=== PATIENT | male | born 1960 | race Caucasian/White ===

== ENCOUNTER → 2016-05-27 | Day surgery (SDC) | payer OTHER, BC ==
[2016-05-20 10:07] VITALS: Ht 170.2 cm; Wt 81.8 kg
[~2016-05-27] VITALS: Ht 170.2 cm; Wt 81.8 kg
[~2016-05-27] MED LIST: ACETAMINOPHEN 325 MG TAB PO PRN; ATROPINE SULFATE 0.1 MG/ML 5ML SYR IV PRN; CEFAZOLIN 2000 MG/60 ML D5W IV SCH; CEPH-571 PO; DOXA1TAB86 PO; EpHEDrine SULFATE INJ 50 MG/ML AMP IV PRN; FENTANYL CITRATE INJ 50 MCG/1 ML 2 ML VIAL IV PRN; FENTANYL CITRATE INJ 50 MCG/1 ML 2 ML VIAL ONE; FURO-85 PO; GABA-112 PO; HYDROmorphone INJ 1 MG/ML SYR IV PRN; LABETALOL HCL IV 5 MG/ML 20ML ONE; LACTATED RINGER'S 1000ML 1,000 ML IV SCH; LBT/100 PO; LIDOCAINE HCL 2% 2 ML VIAL (20MG/ML) ONE; LIDOCAINE/EPINEPHRINE 1% INJ 50 ML VIAL ONE; METOCLOPRAMIDE HCL INJ 5 MG/ML 2 ML VIAL IV PRN; MIDAZOLAM HCL 1 MG/ML 2ML VIAL ONE; MORP1TAB12 PO; MORP30TA PO; ONDANSETRON INJ 2 MG/ML 2 ML VIAL IV PRN; OXYCODONE/ACETAMINOPHEN 5-325 TAB PO PRN; PLQ200 PO; POTA20TA16 PO; PRED10TA PO; PRLSR20 PO; PROPOFOL IV EMULSION 10 MG/ML 20 ML VIAL IV ONE; SODIUM CHLORIDE 0.9% 1000ML 1,000 ML IV SCH; SODIUM CHLORIDE 0.9% INJ 10 ML VIAL ONE
--- NOTE | 2016-05-27 09:54 | History & Physical Bridge - [place] ---
H&P Re-Evaluation Bridge Note: I have examined the patient, reviewed the History & Physical and in the interval since the performance of the History & Physical I have noted the following changes of clinical significance: No changes noted
--- NOTE | 2016-05-27 12:12 | [facility] Post Operative Brief Note ---
Immediate Operative Summary Operative Date May 27, 2016. Pre-Operative Diagnosis Basal Cell Carcinoma Right Ear [place] Post-Operative Diagnosis Same, pathology pending Procedure(s) Performed Right Ear [place] Basal Cell Carcinoma With Frozen Section Surgeon Dr. Yennifer Garcia Field Assistant Surgeon(s) Yennifer Shepherd PA-C Estimated Blood Loss 10 Findings residual BCC, 1st frozen showed positive 3-8 margin, 2nd frozen showed residual BCC with final margins negative. Specimens B. Basal Cell Carcinoma Right Ear [place] Re-excision 2-9, suture de la paz 9 o'clock , sent for Frozen Anesthesia local with sedation Complication(s) None key catheter placed due to patient discomfort-1000 cc returned Disposition Recovery Room / PACU
[2016-05-27 12:18] VITALS: TEMP 36
--- NOTE | 2016-05-27 12:23 | Discharge Instructions ---
Discharge Instructions Admission Reason for Admission: Right Ear Basal Cell Carcinoma Discharge Discharge Diagnosis / Problem: Basal Cell Carcinoma Discharge Goals Goal(s): Decrease discomfort Activity Recommendations Activity Limitations: as noted below ACTIVITY RECOMMENDATIONS: __Normal activities _x_No bending, lifting or straining __No driving _x_Driving allowed when you are off pain medications __Walking permitted __You should have help at home for ___ days DRESSINGS: __No dressings required _x_Keep dressings dry/in place until first office visit __Remove dressings ___ and leave dressings off _x_Apply ice __3_ days __Remove dressings and reapply garment __Apply antibiotic ointment (Bacitracin, Neosporin, etc) to wounds 3-4 times/ day for 10 days BATHING: x__Keep dressings dry _x_Sponge bathing permitted __Showering permitted _x_No swimming, hot tubs or soaking in a tub MEDICATIONS: Resume previous medications unless instructed otherwise by your surgeon. _x_Do not use aspirin, Motrin, Advil or Ibuprofen as these may promote bleeding. Please use Tylenol. _x_Prescription(s) provided:pain medication provided at last office visit, script for antibiotics provided today- start today OTHER INSTRUCTIONS: __Record drain output 2-3 times per day SPECIAL CARE INSTRUCTIONS: * It is normal to have a mild fever after surgery. If your temperature is higher than 101.5 degrees F, please call the office at [phone]. * Constipation is a typical side effect of pain medication. An over-the- counter stool softener will help relieve this. * Leaking around surgical drains may occur and should not cause concern. Sometimes these drains become clogged. If this happens, remove the bulb and milk the clot out of the tube, then replace the bulb. * Drainage from wounds after liposuction is normal and should be expected. Garments will become soiled. You should protect furniture and bedding. This drainage should mostly subside within 2-3 days. Leave garments in place unless instructed to remove them. * If you have unusual drainage from a wound or are concerned you have an infection or have any questions or concerns, please call the office at [phone]. FOLLOW UP VISIT: If not already scheduled, please call the office, , when you return home after surgery to schedule an appointment to be seen in _5__ days. . Current Hospital Diet Patient's current hospital diet: Discharge Diet Recommended Diet: Regular Diet Procedures Procedures Performed: Right Ear [place] Basal Cell Carcinoma With Frozen Section Pending Studies Studies pending at discharge: yes List of pending studies: pathology Laboratory Results Hemoglobin A1c Test 04/09/16 08:54 Range/Units Estimated Average Glucose 108 mg/dl Hemoglobin A1c 5.4 4.5-5.6 % Lipid Panel Test 04/09/16 08:54 Range/Units Triglycerides Level 38 0-150 mg/dl Cholesterol Level 133 0-200 mg/dl HDL Cholesterol 71 mg/dl Cholesterol/HDL Ratio 1.9 LDL Cholesterol, Calculated 54 mg/dl Medical Emergencies . Who to Call and When: Medical Emergencies: If at any time you feel your situation is an emergency, please call 911 immediately. . Non-Emergent Contact Non-Emergency issues call your: Primary Care Provider, Surgeon . "Provider Documentation" section prepared by Allison Shepherd. VTE Core Measure Inpt VTE Proph given/why not?: SCD's
[2016-05-27 12:56] VITALS: BP 169/90; PULSE 77; O2SAT 94
--- NOTE | 2016-05-27 13:01 | Anesthesia Progress Nt - [facility] ---
Anesthesia Post Op Note Date & Time May 27, 2016 at 13:01 Vital Signs Pain Intensity: 7.0 Vital Signs Past 12 Hours Date Time Temp Pulse Resp B/P Pulse Ox O2 Delivery O2 Flow Rate FiO2 05/27/16 12:56 77 16 169/90 94 05/27/16 12:18 36 74 16 176/92 95 Room Air 05/27/16 09:43 36.8 70 18 168/95 96 Room Air Notes Mental Status: alert / awake / arousable, participated in evaluation Pt Amnestic to Procedure: No Nausea / Vomiting: adequately controlled Pain: adequately controlled Airway Patency, RR, SpO2: stable & adequate BP & HR: stable & adequate Hydration State: stable & adequate Anesthetic Complications: no major complications apparent Non distressing recall as discussed preop
--- NOTE | 2016-05-29 13:03 | OPERATIVE REPORT ---
DATE OF OPERATION: 05/29/2016 PREOPERATIVE DIAGNOSIS: Right ear basal cell carcinoma. POSTOPERATIVE DIAGNOSIS: Same. PROCEDURE: Excision basal cell carcinoma right ear helix with frozen section and full thickness skin graft. SURGEON: Dr. Sara Garcia. ANNEALING OPERATOR: Allison Shepherd. ANESTHESIA: Local with sedation. COMPLICATIONS: None. INDICATION FOR THE PROCEDURE: The patient is a 55-year-old male referred to me by his primary care physician for a nonhealing ulceration of his right ear. Shave biopsy of this was performed which showed basal cell carcinoma. After discussion of options including excision with frozen section versus Mohs surgery, the patient elected to proceed with excision with frozen section. BRIEF DESCRIPTION OF THE PROCEDURE: Risks, benefits, and alternatives of the procedure were explained to the patient who agreed and signed consent. He was identified and marked in the preoperative holding area. He was brought to the operating room where he was sedated and positioned supine. Surgical site was prepped and draped sterilely. A time-out procedure was performed. The planned excision was marked. This included the small healing shave biopsy site, as well as some clinically apparent residual lesion. 1% lidocaine with epinephrine was used to anesthetize the area. A 15-blade scalpel was used to make the incision and remove the lesion with some underlying subcutaneous tissue. A silk suture was placed at the 12 o'clock margin and the lesion was sent for frozen section. Hemostasis was achieved with electrocautery. Initial frozen section report showed involved margins from the 3 to 8 o'clock position. This corresponded clinically was some additional erythematous area located on the ear helix. This area was marked for excision and removed as well. It was sent for a second frozen section which showed that there was residual basal cell carcinoma, some within 1 mm of the margin, however, with no positive margins. At this point, after assuring hemostasis, the maximal excision diameter was 2.5 cm and I felt that this would be very large to attempt any form of primary closure or flap closure. Additionally, given the location being mostly posteriorly on the ear, I elected to proceed with placement of full thickness skin graft. This was harvested from the postauricular sulcus. The planned graft was marked. 1% lidocaine with epinephrine was used to anesthetize the area. A 15-blade scalpel made the elliptical incision within the postauricular sulcus and a graft was harvested. The graft was defatted by my physician speech language pathologist assistant using a curved iris scissor. The donor site was closed using 4-0 chromic interrupted dermal sutures and 4-0 chromic running suture. The graft was then inset into the recipient site using 4-0 silk tie over bolster sutures and 4-0 chromic interrupted sutures. Additional overlapping graft was trimmed and once the graft had been inset, Xeroform and sterile cotton were used to create a tie over bolster. Xeroform was used to dress the postauricular incision. Dry dressings and a Valeria dressing were placed. The procedure was tolerated well. The patient was awakened and transferred to the recovery room in satisfactory condition. I attest to the content of the Intraoperative Record and any orders documented therein. Any exceptio ns are noted below.
== END | disposition home or self-care (01) ==
LOC: X.SURG 09:24
PROVIDERS: ATTEND Plastic Surgery
DX: C44.212 Basal cell carcinoma of skin of right ear and external auricular canal (principal); I42.9 Cardiomyopathy, unspecified; K21.9 Gastro-esophageal reflux disease without esophagitis; I44.7 Left bundle-branch block, unspecified; M48.00 Spinal stenosis, site unspecified

== ENCOUNTER → 2016-07-23 | Outpatient (CLI) | payer OTHER, BC ==
[~2016-07-23] MED LIST changes: -ACETAMINOPHEN 325 MG TAB PO PRN; -ATROPINE SULFATE 0.1 MG/ML 5ML SYR IV PRN; -CEFAZOLIN 2000 MG/60 ML D5W IV SCH; -CEPH-571 PO; -EpHEDrine SULFATE INJ 50 MG/ML AMP IV PRN; -FENTANYL CITRATE INJ 50 MCG/1 ML 2 ML VIAL IV PRN; -FENTANYL CITRATE INJ 50 MCG/1 ML 2 ML VIAL ONE; -FURO-85 PO; -HYDROmorphone INJ 1 MG/ML SYR IV PRN; -LABETALOL HCL IV 5 MG/ML 20ML ONE; -LACTATED RINGER'S 1000ML 1,000 ML IV SCH; -LIDOCAINE HCL 2% 2 ML VIAL (20MG/ML) ONE; -LIDOCAINE/EPINEPHRINE 1% INJ 50 ML VIAL ONE; -METOCLOPRAMIDE HCL INJ 5 MG/ML 2 ML VIAL IV PRN; -MIDAZOLAM HCL 1 MG/ML 2ML VIAL ONE; -ONDANSETRON INJ 2 MG/ML 2 ML VIAL IV PRN; -OXYCODONE/ACETAMINOPHEN 5-325 TAB PO PRN; -PROPOFOL IV EMULSION 10 MG/ML 20 ML VIAL IV ONE; -SODIUM CHLORIDE 0.9% 1000ML 1,000 ML IV SCH; -SODIUM CHLORIDE 0.9% INJ 10 ML VIAL ONE
[2016-07-23 10:54] LABS: BASO % 0.7 %; BASO ABS # 0.04 K/uL (0-0.2); COMPLETE YES; EOS % 10.3 %; HEMATOCRIT 38.8 % (42-52); IG% 0.2 %; LYMPH ABS # 2.02 K/uL (1.2-3.4); MEAN CELL VOLUME 88.8 fL (80-100); MEAN CORPUSCULAR HEMOGLOBIN 31.1 pg (25-34); MEAN CORPUSCULAR HGB CONC 35.1 g/dl (32-36); MEAN PLATELET VOLUME 9.5 fL (7.4-10.4); MONO % 10.8 %; PLATELET COUNT 236 K/uL (130-400); RED BLOOD COUNT 4.37 M/uL (4.7-6.1); WHITE BLOOD COUNT 5.94 K/uL (4.8-10.8)
[2016-07-23 11:25] LABS: ESTIMATED AVERAGE GLUCOSE 105 mg/dl; HA1C FLAG Normal (Normal)
[2016-07-23 11:26] LABS: ALKALINE PHOSPHATASE 61 U/L (45-117); ALT/SGPT 19 U/L (12-78); AST/SGOT 19 U/L (15-37); BLOOD UREA NITROGEN 6 mg/dl (7-18); BUN/CREATININE RATIO 8.7 (10-20); C-REACTIVE PROTEIN < 0.29 mg/dl (0-0.29); CARBON DIOXIDE 30 mmol/L (21-32); CHLORIDE 102 mmol/L (98-107); CHOLESTEROL 158 mg/dl (0-200); CREATININE 0.72 mg/dl (0.60-1.40); GLUCOSE 89 mg/dl (70-99); PHOSPHORUS 3.1 mg/dl (2.5-4.9); POTASSIUM 3.7 mmol/L (3.5-5.1); SODIUM 140 mmol/L (136-145); TRIGLYCERIDES 58 mg/dl (0-150); VERY LOW DENSITY LIPOPROT CALC 12 mg/dl
[2016-07-23 11:38] LABS: ALB/GLOB RATIO 1.3 (0.9-2); CHOLESTEROL/HDL RATIO 2.3; HDL CHOLESTEROL 70 mg/dl; LDL CHOLESTEROL CALCULATED 76 mg/dl; URIC ACID 3.6 mg/dl (2.6-7.2)
== END | disposition home or self-care (01) ==
LOC: C.LAB 09:48
PROVIDERS: ATTEND Family Medicine
DX: R73.09 Other abnormal glucose (principal); E55.9 Vitamin D deficiency, unspecified; D51.9 Vitamin B12 deficiency anemia, unspecified

== ENCOUNTER → 2016-07-30 | Outpatient (CLI) | payer OTHER, BC ==
[2016-07-30 17:15] LABS: SYNOVIAL FLUID APPEARANCE HAZY; SYNOVIAL FLUID COLOR PALE YELLOW; SYNOVIAL FLUID MONONUC RELAT 76.9 %; SYNOVIAL FLUID POLYNUC RELAT 23.1 %
[2016-08-02 17:31] LABS: LYME DNA PCR CSF OR SYNOVIAL Not detected (Not Detected); LYME DNA SOURCE Synovial Fluid
== END | disposition home or self-care (01) ==
LOC: C.LABSPEC 14:38
PROVIDERS: ATTEND Orthopaedic Surgery
DX: M25.461 Effusion, right knee (principal)

== ENCOUNTER → 2016-08-14 | Outpatient (CLI) | payer OTHER, BC ==
--- NOTE | 2016-08-14 11:46 | DIAGNOSTIC IMAGING REPORT ---
RIGHT KNEE MRI HISTORY: RIGHT KNEE PAIN Right COMPARISON STUDY: None. TECHNIQUE: Multiplanar multisequence MRI of the right knee was performed according to standard department protocol without the use of contrast. FINDINGS: Menisci: There is an oblique tear involving the body and posterior horn of the medial meniscus. Complex tear involving the anterior horn and body of the lateral meniscus. Ligaments: Increased signal and thickening within the distal ACL which likely represents developing mucoid degeneration. The PCL and LCL are intact. No evidence for MCL tear. Extensor mechanism: The quadriceps tendon and patellar ligament are intact. Articular cartilage and bone: No fracture or dislocation. Tricompartmental marginal osteophytes. A 4 mm full-thickness cartilage defect seen within the posterior medial aspect of the medial femoral condyle. There is also greater than 50% cartilage thinning within the central weightbearing portion of the medial femoral condyle and medial tibial plateau. There is a 6 mm full-thickness cartilage defect seen within the central weightbearing portion of the lateral femoral condyle. There is also a large area of full-thickness cartilage loss involving the central aspect of the lateral tibial plateau which measures 1.3 cm. The patellar cartilage is intact. There is a small cartilage fissure within the medial trochlea. Subchondral edema within the lateral femoral condyle and lateral tibial plateau is likely due to degenerative change. Joint effusion: Large. Soft tissues: A 7.4 x 1.4 cm popliteal cyst. There is soft tissue edema within Hoffa's fat-pad. There is also subcutaneous and deep soft tissue edema surrounding the majority of the knee. IMPRESSION: 1. Bilateral meniscal tears as described above. 2. Abnormal signal and thickening within the distal ACL consistent with mucoid degeneration. 3. Tricompartmental osteoarthritis as described above. This is most pronounced at the lateral compartment. 4. Large knee effusion. 5. Popliteal cyst. Electronically signed by: Dionisio Lou M.D. 08/14/2016 11:44 AM Dictated Date/Time: 08/14/2016 11:34 AM
== END | disposition home or self-care (01) ==
LOC: C.MRIBC 09:53
PROVIDERS: ATTEND Orthopaedic Surgery
DX: S83.241A Other tear of medial meniscus, current injury, right knee, initial encounter (principal); S83.281A Other tear of lateral meniscus, current injury, right knee, initial encounter; M17.11 Unilateral primary osteoarthritis, right knee; M25.461 Effusion, right knee; M71.21 Synovial cyst of popliteal space [Baker], right knee; X58.XXXA Exposure to other specified factors, initial encounter

== ENCOUNTER → 2016-12-15 | Outpatient (CLI) | payer OTHER, BC ==
--- NOTE | 2016-12-15 10:36 | DIAGNOSTIC IMAGING REPORT ---
RIGHT SHOULDER MIN 2 VIEWS ROUTINE CLINICAL HISTORY: SHOULDER Right pain COMPARISON: None. DISCUSSION: Mild degenerative change right acromioclavicular joint. Mild/moderate degenerative change of the glenohumeral joint. Small Hill-Sachs type deformity lateral to lateral aspect right humeral head. Minimal calcification supraspinatus tendon insertion. There is no evidence for soft tissue swelling. IMPRESSION: 1. Minimal calcific supraspinatus tendinitis. 2. Moderate degenerative change acromioclavicular and glenohumeral joints. 3. Mild Hill-Sachs type deformity posterior lateral aspect humeral head. The above report was generated using voice recognition software. It may contain grammatical, syntax or spelling errors. Electronically signed by: Jomar Staley M.D. 12/15/2016 10:34 AM Dictated Date/Time: 12/15/2016 10:33 AM
--- NOTE | 2016-12-15 10:38 | DIAGNOSTIC IMAGING REPORT ---
LEFT HIP UNILATERAL 2 VIEWS CLINICAL HISTORY: HIP PAIN pain COMPARISON: None. DISCUSSION: Moderate degenerative change left hip. Moderate sclerosis left acetabular surfaces. Mild synovial calcification lateral to the superior acetabular margin. No evidence for acetabular protrusion. No evidence for fracture. There is no evidence for soft tissue swelling. IMPRESSION: Moderate degenerative change. Mild synovial calcification versus mild chondrocalcinosis on a degenerative basis. The above report was generated using voice recognition software. It may contain grammatical, syntax or spelling errors. Electronically signed by: Jomar Staley M.D. 12/15/2016 10:37 AM Dictated Date/Time: 12/15/2016 10:36 AM
--- NOTE | 2016-12-15 10:39 | DIAGNOSTIC IMAGING REPORT ---
LEFT SHOULDER MIN 2 VIEWS ROUTINE CLINICAL HISTORY: SHOULDER PAIN pain COMPARISON: None. DISCUSSION: Moderate degenerative change acromioclavicular joint. Minimal peripheral osteophytic reaction superior margin of the left acromion. Minimal calcific supraspinatus tendinitis. Moderate Hill-Sachs deformity posterior lateral aspect humeral head. There is no evidence for soft tissue swelling. IMPRESSION: Moderate degenerative change. Minimal calcific supraspinatus tendinitis. The above report was generated using voice recognition software. It may contain grammatical, syntax or spelling errors. Electronically signed by: Jomar Staley M.D. 12/15/2016 10:38 AM Dictated Date/Time: 12/15/2016 10:37 AM
--- NOTE | 2016-12-15 10:41 | DIAGNOSTIC IMAGING REPORT ---
RIGHT HIP UNILATERAL 2 VIEWS CLINICAL HISTORY: Arthritis Right pain COMPARISON: None. DISCUSSION: Moderate degenerative change right hip. Mild synovial calcification versus chondrocalcinosis. Moderate sclerosis acetabular margin. No evidence for acetabular protrusion. Small focus of benign sclerosis proximal femoral shaft. There is no evidence for soft tissue swelling. IMPRESSION: 1. Moderate degenerative change. Mild synovial calcification versus chondral calcinosis calcification on a degenerative basis. No acute process. The above report was generated using voice recognition software. It may contain grammatical, syntax or spelling errors. Electronically signed by: Jomar Staley M.D. 12/15/2016 10:40 AM Dictated Date/Time: 12/15/2016 10:38 AM
== END | disposition home or self-care (01) ==
LOC: C.RAD 09:30
PROVIDERS: ATTEND Family Medicine
DX: M19.90 Unspecified osteoarthritis, unspecified site (principal)

== ENCOUNTER → 2017-04-07 | Outpatient (CLI) | payer OTHER, BC ==
[2017-04-07 17:06] LABS: ALT/SGPT 30 U/L (12-78); AST/SGOT 26 U/L (15-37); BLOOD UREA NITROGEN 6 mg/dl (7-18); BUN/CREATININE RATIO 9.9 (10-20); CALCIUM 8.4 mg/dl (8.5-10.1); CARBON DIOXIDE 29 mmol/L (21-32); CHLORIDE 104 mmol/L (98-107); CREATININE 0.65 mg/dl (0.60-1.40); GLUCOSE 96 mg/dl (70-99); POTASSIUM 3.6 mmol/L (3.5-5.1); SODIUM 140 mmol/L (136-145)
[2017-04-07 17:08] LABS: ALB/GLOB RATIO 1.2 (0.9-2); ALKALINE PHOSPHATASE 81 U/L (45-117)
[2017-04-07 18:10] LABS: LYME DISEASE AB IGG NEG (NEG)
[2017-04-07 18:31] LABS: LYME DISEASE AB IGM EQUIVOCAL (NEG)
== END | disposition home or self-care (01) ==
LOC: C.LAB 14:57
PROVIDERS: ATTEND Family Medicine
DX: M25.50 Pain in unspecified joint (principal)

== ENCOUNTER 2017-05-15 08:54 | Emergency (ER) | payer OTHER, BC ==
[~2017-05-15] VITALS: Ht 170.2 cm; Wt 84.8 kg
[2017-05-15 09:09] VITALS: TEMP 36.8; Ht 170.2 cm; Wt 84.8 kg
[2017-05-15] MEDS ORDERED: LEFL20TA PO (09:23)
[2017-05-15] MEDS ORDERED: POTA10TA32 PO (09:24)
[2017-05-15] MEDS ORDERED: BSP/10 PO (09:24)
[2017-05-15] MEDS ORDERED: XYLOCAINE 1%/SOD BICARB 20 ML VIAL INFIL ONE (09:32)
[2017-05-15] MEDS ORDERED: TRAMADOL HCL 50 MG TAB PO STA (09:36)
[2017-05-15] MEDS ORDERED: ACETAMINOPHEN 500 MG TAB PO STA (09:36)
[2017-05-15] MEDS ORDERED: DIPHTHERIA/TETANUS/PERTUSSIS 0.5 ML SYR/VIAL IM. ONE (09:45)
[2017-05-15] MEDS ORDERED: TRAM-10 PO (11:33)
[2017-05-15 11:45] VITALS: BP 138/83; PULSE 67; O2SAT 95
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
== END 2017-05-15 11:45 | disposition home or self-care (01) ==
LOC: C.EDB 08:55
DX: S01.81XA Laceration without foreign body of other part of head, initial encounter (principal); W22.8XXA Striking against or struck by other objects, initial encounter; Y92.018 Other place in single-family (private) house as the place of occurrence of the external cause; I10 Essential (primary) hypertension; Z79.899 Other long term (current) drug therapy

== ENCOUNTER 2017-07-16 13:53 | Observation (INO) | payer OTHER ==
[~2017-07-16] VITALS: Ht 170.2 cm; Wt 79.6 kg
[~2017-07-16 13:53] MED LIST changes: +BSP/10 PO; +LEFL20TA PO; -PLQ200 PO; +POTA10TA32 PO; -POTA20TA16 PO; -PRED10TA PO; +TRAM-10 PO
--- NOTE | 2017-07-16 14:05 | EMERGENCY ROOM VISIT NOTE ---
History First contact with patient: 14:02 Chief Complaint: CARDIAC ASSESSMENT Stated Complaint: CHEST PAIN, SOB Nursing Triage Summary: triage note: pt reports since 0500 he has had heart palpiations, pain between shoulder blades and shortness of breath. pt reports diarrhea x 4 episodes today. History of Present Illness The patient is a 56 year old male who presents to the Emergency Room with complaints of chest pain Patient awoke up this morning with intense chest heaviness and heart palpitations. Associated symptoms included dyspnea, nausea but no vomiting only dry heaves, and diaphoresis. He denies radiation of pain to neck or jaw, but does have a sharp knife-like pain radiating through the thorax to the back between his shoulder blades. He measured his BP in the morning, it was 177/112. He also has a frontal headache since this morning. He took his AM meds as prescribed. Symptoms subsided but patient has had intermittent recurrence of the episodes through out the day, some episodes as brief as 3 min. No appreciable triggers to the episodes. He is still currently experience pain and nausea and so came to the ED for evaluation. In the past, he has had similar episodes, these usually resolved with nitro. He has not required any meds in the last year and did not have have any non- nitro at home. He is known to soap inspector Dr. Coe, but has not had an appointment with him for a while. He denies previous PR but states he has a known LBBB. He is a non-smoker and denies recreational drug use. Additionally, today, patient has felt that his abdomen is churning but not painful. He has had 4 episodes of diarrhea, non bloody. He otherwise denies fevers/chills, URTI symptoms, lower extremity swelling or rashes. He had been tolerating diet without nausea or vomiting, ambulating without exacerbating symptoms, and voiding and stooling appropriately. Source of History: patient Onset: this morning Position: chest Symptom Intensity: severe Quality: pressure, stabbing Timing: intermittent Modifying Factors (Worsening): exertion, eating Modifying Factors (Relieving): rest, movement Associated Symptoms: + diaphoresis, + chest pain, + SOB, + nausea, + abdominal pain, + diarrhea Review of Systems See HPI for pertinent positives and negatives. A total of ten systems were reviewed and were otherwise negative. Past Medical/Surgical History Medical Problems: (1) Alcohol withdrawal (2) Hypertension (3) Opioid withdrawal delirium (4) Uncontrolled stage 2 hypertension Family History FH: heart attack FATHER (64) SISTER, Onset:62 Social History Smoking Status: Never Smoker Alcohol Use: heavy Marital Status: Occupation Status: retired Current/Historical Medications Scheduled Buspirone HCl (Buspirone HCl), 1 TAB PO TID Celecoxib (Celecoxib), 1 CAP PO BID Doxazosin Mesylate (Doxazosin Mesylate), 1 TAB PO DAILY Gabapentin (Neurontin), 100 MG PO TID Labetalol Hcl (Normodyne), 100 MG PO BID Leflunomide (Arava), 10 MG PO DAILY Morphine Sulfate (Morphine Sulfate Er), 30 MG PO BID Omeprazole (Prilosec), 20 MG PO BID Potassium Chloride Microencaps (Potassium Chloride Er), 10 MEQ PO BID Prednisone (Prednisone), 8 MG PO DAILY Scheduled PRN Morphine Sulfate Ir (Morphine Sulfate Ir), 30 MG PO BID PRN for Pain Physical Exam Vital Signs Date Time Temp Pulse Resp B/P (MAP) Pulse Ox O2 Delivery O2 Flow Rate FiO2 07/16/17 17:30 72 155/87 96 Room Air 07/16/17 17:11 75 16 149/90 96 Room Air 07/16/17 15:33 70 154/97 96 Room Air 07/16/17 15:00 72 151/97 96 Room Air 07/16/17 14:31 73 07/16/17 14:24 85 19 181/100 95 Room Air 07/16/17 13:59 37.0 97 18 153/107 96 Room Air Physical Exam GENERAL: alert, well appearing, thin, sitting in bed, no acute distress, non- toxic HEAD: Normocephalic, atraumatic. No sinus tenderness. EYES: PERRL, EOMI, normal sclera and conjunctiva OROPHARYNX: No exudate, no erythema. Lips, buccal mucosa, and tongue normal and mucous membranes are moist NECK: Supple, no nuchal rigidity, no adenopathy, non-tender LUNGS: Clear to auscultation. Normal chest wall mechanics, good air entry. No crepitations, crackles, or wheezes HEART: RRR, S1 and S2 normal, no murmurs appreciated CHEST: No reproducible tenderness. ABDOMEN: Soft, epigastric tenderness, normo-active bowel sounds, no masses, no rebound or guarding. BACK: Back is symmetrical on inspection, no deformities, tenderness to palpation in area between upper scapula, no CVA tenderness. SKIN: Warm, pink, dry. No erythema, rashes, or bruising. EXTREMITIES: Grossly normal. Moving all 4 limbs, strength 5/5. No pitting edema. Calves non tender. NEURO: Alert, Ox3. No focal deficits. Normal sensorium, cranial nerves II-XII grossly intact, normal speech. PSYCH: Mood and affect appropriate. Medical Decision & Procedures ER Provider Diagnostic Interpretation: CT ANGIOGRAM OF THE CHEST CLINICAL HISTORY: Atypical chest pain. COMPARISON STUDY: Chest CT scans dated 07/16/2015 and 07/24/2013. TECHNIQUE: Following the IV administration of 95 cc of Optiray 320, CT angiogram of the chest was performed from the upper abdomen to the thoracic inlet utilizing the pulmonary embolus protocol. Images are reviewed in the axial, sagittal, and coronal planes. 3-D MIPS images are created and assessed. IV contrast was administered without complication. A dose lowering technique was utilized adhering to the principles of ALARA. The examination is modestly degraded by motion artifact. CT DOSE: 260.43 mGy.cm FINDINGS: Thyroid: Imaged portions of the thyroid gland are normal in size and attenuation. Thoracic aorta: The thoracic aorta is normal in caliber and demonstrates standard 3-vessel arch anatomy. No dissection is seen. Pulmonary vasculature: The pulmonary trunk is normal in caliber. There are no filling defects identified in main, lobar, or segmental pulmonary branches to suggest pulmonary embolus. Heart: The heart is enlarged and there is trace pericardial effusion. Lungs and pleural spaces: There is chronic elevation of the right hemidiaphragm with associated atelectasis. No airspace consolidation or pleural effusion is seen. The trachea and central airways are clear. Mediastinum: There is no mediastinal lymphadenopathy. Saima: Clear. Axillae: There is no axillary lymphadenopathy. Upper abdomen: Partially visualized upper abdominal viscera is within normal limits. Skeletal structures: Arthritic change is noted in the right shoulder and throughout the thoracic spine. No lytic or blastic bony lesions are seen. IMPRESSION: 1. There is no evidence of pulmonary embolus in the main, lobar, or segmental pulmonary arteries. 2. The lungs are clear. 3. Cardiomegaly. Laboratory Results 07/16/17 14:19 Red Blood Count 4.83, Mean Corpuscular Volume 89.0, Mean Corpuscular Hemoglobin 30.6, Mean Corpuscular Hemoglobin Concent 34.4, Mean Platelet Volume 9.8, Neutrophils (%) (Auto) 82.3, Lymphocytes (%) (Auto) 10.7, Monocytes (%) (Auto) 6.1, Eosinophils (%) (Auto) 0.5, Basophils (%) (Auto) 0.3, Neutrophils # (Auto) 6.09, Lymphocytes # (Auto) 0.79, Monocytes # (Auto) 0.45, Eosinophils # (Auto) 0.04, Basophils # (Auto) 0.02 07/16/17 14:19 Test 07/16/17 14:19 07/16/17 15:21 White Blood Count 7.40 K/uL (4.8-10.8) Red Blood Count 4.83 M/uL (4.7-6.1) Hemoglobin 14.8 g/dL (14.0-18.0) Hematocrit 43.0 % (42-52) Mean Corpuscular Volume 89.0 fL (80-100) Mean Corpuscular Hemoglobin 30.6 pg (25-34) Mean Corpuscular Hemoglobin Concent 34.4 g/dl (32-36) Platelet Count 235 K/uL (130-400) Mean Platelet Volume 9.8 fL (7.4-10.4) Neutrophils (%) (Auto) 82.3 % Lymphocytes (%) (Auto) 10.7 % Monocytes (%) (Auto) 6.1 % Eosinophils (%) (Auto) 0.5 % Basophils (%) (Auto) 0.3 % Neutrophils # (Auto) 6.09 K/uL (1.4-6.5) Lymphocytes # (Auto) 0.79 K/uL (1.2-3.4) Monocytes # (Auto) 0.45 K/uL (0.11-0.59) Eosinophils # (Auto) 0.04 K/uL (0-0.5) Basophils # (Auto) 0.02 K/uL (0-0.2) RDW Standard Deviation 40.9 fL (36.4-46.3) RDW Coefficient of Variation 12.6 % (11.5-14.5) Immature Granulocyte % (Auto) 0.1 % Immature Granulocyte # (Auto) 0.01 K/uL (0.00-0.02) Anion Gap 7.0 mmol/L (3-11) Est Creatinine Clear Calc Drug Dose 123.9 ml/min Estimated GFR () 122.8 Estimated GFR (Non- 105.9 BUN/Creatinine Ratio 8.4 (10-20) Calcium Level 8.4 mg/dl (8.5-10.1) Magnesium Level 2.2 mg/dl (1.8-2.4) Total Bilirubin 0.6 mg/dl (0.2-1) Aspartate Amino Transf (AST/SGOT) 17 U/L (15-37) Alanine Aminotransferase (ALT/SGPT) 21 U/L (12-78) Alkaline Phosphatase 73 U/L (45-117) Total Protein 6.6 gm/dl (6.4-8.2) Albumin 3.6 gm/dl (3.4-5.0) Globulin 3.0 gm/dl (2.5-4.0) Albumin/Globulin Ratio 1.2 (0.9-2) Lipase 487 U/L (73-393) Urine Color YELLOW Urine Appearance CLEAR (CLEAR) Urine pH 7.5 (4.5-7.5) Urine Specific [place] 1.005 (1.000-1.030) Urine Protein NEG (NEG) Urine Glucose (UA) NEG (NEG) Urine Ketones NEG (NEG) Urine Occult Blood NEG (NEG) Urine Nitrite NEG (NEG) Urine Bilirubin NEG (NEG) Urine Urobilinogen NEG (NEG) Urine Leukocyte Esterase NEG (NEG) Medications Administered Medications (Trade) Dose Ordered Sig/[place] Route Start Time Stop Time Status Last Admin Dose Admin Ondansetron HCl (Zofran Inj) 4 mg NOW STAT IV 07/16/17 14:18 07/16/17 14:19 DC 07/16/17 14:27 4 MG Morphine Sulfate (MoRPHine SULFATE INJ) 2 mg NOW STAT IV 07/16/17 14:18 07/16/17 14:19 DC 07/16/17 14:28 2 MG Aspirin (Aspirin Chew) 324 mg NOW STAT PO 07/16/17 14:19 07/16/17 14:20 DC 07/16/17 14:27 324 MG Nitroglycerin (Nitrostat Tab) 0.4 mg NOW STAT SL 07/16/17 15:19 2/22/18 15:21 DC 07/16/17 15:36 0.4 MG Potassium Chloride (Klor-Con Tab) 40 meq NOW STAT PO 07/16/17 15:21 07/16/17 15:22 DC 07/16/17 15:36 40 MEQ Famotidine 20 mg/ Dextrose 102 ml @ 200 mls/hr ONE STAT IV 07/16/17 16:02 07/16/17 16:32 DC 07/16/17 17:10 200 MLS/HR Calcium Carbonate (Tums Chew Tab) 1,500 mg ONE STAT PO 07/16/17 16:02 07/16/17 16:03 DC 07/16/17 17:16 1,500 MG ECG Per My Interpretation Indication: chest pain Rate (beats per minute): 80 Rhythm: normal sinus Findings: LBBB, ST depression (inferior and lateral), ST elevation (aVL), other (normal axis, normal intervals) Change: no significant change Medical Decision Prior records/ancillary studies reviewed. Triage Nursing notes reviewed. Additional history obtained from patient. The patient's history was concerning for chest pain. Differential diagnosis: Etiologies such as cardiac ischemia, aortic dissection, pulmonary embolism, pneumonia, pneumothorax, musculoskeletal, infections, pericarditis, myocarditis , esophageal rupture, gastrointestinal, as well as others were entertained. Physical examination: As above. ER treatment provided: IV morphine, IV Zofran, PO aspirin, SL nitroglycerin, PO KCl, IV Pepcid, PO Tums On reassessment the patient felt better. Diagnostic interpretation by me: The electrocardiogram was not significantly changed from his EKG in 05/09. The labs revealed CBC and CMP WNL, except hypokalemia 3.0, magnesium WNL. Lipase is borderline elevated. Troponin is negative. UA unremarkable. Imaging studies: CTA of chest unremarkable. By the evaluation outlined above emergent etiologies such as acute cardiac ischemia, aortic dissection, pulmonary embolism, pneumonia, pneumothorax, infections, pericarditis, myocarditis, gastrointestinal, as well as others were deemed relatively unlikely. Consultation: A consultation was placed with the soap inspector, Dr. Knight. The case was discussed and diagnostics were reviewed. A consultation was placed with the hospitalist, Dr. Vargas. The case was discussed and diagnostics were reviewed. The patient was evaluated in the ER for further treatment. The patient and his were informed about the findings as listed above. All questions were answered and they were pleased with the treatment. Blood Pressure Screening Patient's blood pressure: Elevated blood pressure Blood pressure disposition: Referred to PCP Impression Primary Impression: Chest pain Departure Information Dispostion Being Evaluated By Hospitalist Condition GOOD Referrals Giuseppe Romero M.D. (PCP) Patient Instructions My [facility] Resident Tracking Resident Involvement: Resident Care Provided Care Provided: Adult ED
[2017-07-16] MEDS ORDERED: ONDANSETRON INJ 2 MG/ML 2 ML VIAL IV STA (14:18)
[2017-07-16] MEDS ORDERED: MoRPHine SULFATE 2 MG/ML CARP IV STA (14:18)
[2017-07-16] MEDS ORDERED: ASPIRIN 324 MG CHEW PO STA (14:19)
[2017-07-16 14:35] LABS: BASO % 0.3 %; BASO ABS # 0.02 K/uL (0-0.2); EOS % 0.5 %; EOS ABS # 0.04 K/uL (0-0.5); HEMOGLOBIN 14.8 g/dL (14.0-18.0); IG# 0.01 K/uL (0.00-0.02); LYMPH % 10.7 %; LYMPH ABS # 0.79 K/uL (1.2-3.4); MEAN CORPUSCULAR HEMOGLOBIN 30.6 pg (25-34); MEAN CORPUSCULAR HGB CONC 34.4 g/dl (32-36); MEAN PLATELET VOLUME 9.8 fL (7.4-10.4); MONO % 6.1 %; MONO ABS # 0.45 K/uL (0.11-0.59); NEUT % 82.3 %; NEUT ABS # 6.09 K/uL (1.4-6.5); PLATELET COUNT 235 K/uL (130-400); RED CELL DISTRIBUTION WIDTH CV 12.6 % (11.5-14.5); RED CELL DISTRIBUTION WIDTH SD 40.9 fL (36.4-46.3)
[2017-07-16] MEDS ORDERED: OPTIRAY 320 IV PRN (14:45)
[2017-07-16 14:53] LABS: ALBUMIN 3.6 gm/dl (3.4-5.0); ALT/SGPT 21 U/L (12-78); AST/SGOT 17 U/L (15-37); BLOOD UREA NITROGEN 6 mg/dl (7-18); CALCIUM 8.4 mg/dl (8.5-10.1); CARBON DIOXIDE 27 mmol/L (21-32); CREATININE 0.67 mg/dl (0.60-1.40); GLUCOSE 120 mg/dl (70-99); LIPASE 487 U/L (73-393); SODIUM 138 mmol/L (136-145)
[2017-07-16 14:58] LABS: ALKALINE PHOSPHATASE 73 U/L (45-117); TOTAL PROTEIN 6.6 gm/dl (6.4-8.2)
[2017-07-16] MEDS ORDERED: PRED-301 PO (15:14)
[2017-07-16] MEDS ORDERED: DOXA-10 PO (15:14)
[2017-07-16] MEDS ORDERED: CELE1CAP30 PO (15:14)
[2017-07-16] MEDS ORDERED: BSP15 PO (15:14)
[2017-07-16] MEDS ORDERED: NITROGLYCERIN 0.4 MG SL PER TAB CHARGE SL STA (15:19)
[2017-07-16] MEDS ORDERED: POTASSIUM CHLORIDE 20 MEQ TABCR PO STA (15:21)
[2017-07-16] MEDS ORDERED: NITROGLYCERIN 0.4 MG SL PER TAB CHARGE SL PRN (15:30)
--- NOTE | 2017-07-16 15:41 | DIAGNOSTIC IMAGING REPORT ---
CT ANGIOGRAM OF THE CHEST CLINICAL HISTORY: Atypical chest pain. COMPARISON STUDY: Chest CT scans dated 07/16/2015 and 07/24/2013. TECHNIQUE: Following the IV administration of 95 cc of Optiray 320, CT angiogram of the chest was performed from the upper abdomen to the thoracic inlet utilizing the pulmonary embolus protocol. Images are reviewed in the axial, sagittal, and coronal planes. 3-D MIPS images are created and assessed. IV contrast was administered without complication. A dose lowering technique was utilized adhering to the principles of ALARA. The examination is modestly degraded by motion artifact. CT DOSE: 260.43 mGy.cm FINDINGS: Thyroid: Imaged portions of the thyroid gland are normal in size and attenuation. Thoracic aorta: The thoracic aorta is normal in caliber and demonstrates standard 3-vessel arch anatomy. No dissection is seen. Pulmonary vasculature: The pulmonary trunk is normal in caliber. There are no filling defects identified in main, lobar, or segmental pulmonary branches to suggest pulmonary embolus. Heart: The heart is enlarged and there is trace pericardial effusion. Lungs and pleural spaces: There is chronic elevation of the right hemidiaphragm with associated atelectasis. No airspace consolidation or pleural effusion is seen. The trachea and central airways are clear. Mediastinum: There is no mediastinal lymphadenopathy. Saima: Clear. Axillae: There is no axillary lymphadenopathy. Upper abdomen: Partially visualized upper abdominal viscera is within normal limits. Skeletal structures: Arthritic change is noted in the right shoulder and throughout the thoracic spine. No lytic or blastic bony lesions are seen. IMPRESSION: 1. There is no evidence of pulmonary embolus in the main, lobar, or segmental pulmonary arteries. 2. The lungs are clear. 3. Cardiomegaly. Electronically signed by: Mir Villalba M.D. 07/16/2017 3:39 PM Dictated Date/Time: 07/16/2017 3:34 PM
[2017-07-16] MEDS ORDERED: CALCIUM CARBONATE 500 MG CHEWABLE PO STA (16:02)
[2017-07-16] MEDS ORDERED: FAMOTIDINE IV INJ 20 MG in DEXTROSE 5% 100ML 100 ML IV STA (16:02)
[2017-07-16] MEDS ORDERED: POTASSIUM CHLORIDE 10 MEQ TABCR PO STA ×2 (17:46→20:50)
--- NOTE | 2017-07-16 17:46 | EMERGENCY ROOM VISIT NOTE ---
History Report prepared by Eder: Donnie Ash Under the Supervision of: Dr. Nahun Fermin D.O. First contact with patient: 14:02 Chief Complaint: CARDIAC ASSESSMENT Stated Complaint: CHEST PAIN, SOB Nursing Triage Summary: triage note: pt reports since 0500 he has had heart palpiations, pain between shoulder blades and shortness of breath. pt reports diarrhea x 4 episodes today. History of Present Illness The patient is a 56 year old male who presents to the Emergency Room with complaints of intermittent central chest "heaviness" beginning last night. The patient's episodes last for about 3 minutes at a time. His symptoms began in the middle of the night last night. His symptoms are not worsened with exertion. The patient also complains of palpitations, diaphoresis, pain radiating into his back, nausea, and shortness of breath. He states that the pain in his back is located between his shoulder blades. He notes that he has had diarrhea (x4) and a headache today as well. The patient denies vomiting, pain radiation to jaw or neck, or urinary symptoms. He has a history of heart palpitations and hypertension. He is not on any blood pressure medication currently. The patient notes that he has a history of LBBB on ECG previously. He is not a smoker. He has a former history of alcohol abuse. Patient denies swelling of calves, recent trips, history of immobilization or recent surgery, prior history of DVT, hemoptysis, history of malignancy, history of smoking, or control/estrogen use Source of History: patient Onset: Last night Position: chest (central) Symptom Intensity: 3 minutes long Quality: other ("heaviness") Timing: intermittent Associated Symptoms: + headache, + diaphoresis, + SOB, + nausea, + back pain (between shoulderblades), + diarrhea (x4), No vomiting, No urinary symptoms Note: The patient also complains of palpitations. He denies pain radiation to his jaw or neck. Review of Systems See HPI for pertinent positives & negatives. A total of 10 systems reviewed and were otherwise negative. Past Medical & Surgical Medical Problems: (1) Alcohol withdrawal (2) Hypertension (3) Opioid withdrawal delirium (4) Uncontrolled stage 2 hypertension Family History FH: heart attack FATHER (64) SISTER, Onset:62 Social History Smoking Status: Never Smoker Alcohol Use: heavy Marital Status: Occupation Status: retired Current/Historical Medications Scheduled Buspirone HCl (Buspirone HCl), 1 TAB PO TID Celecoxib (Celecoxib), 1 CAP PO BID Doxazosin Mesylate (Doxazosin Mesylate), 1 TAB PO DAILY Gabapentin (Neurontin), 100 MG PO TID Labetalol Hcl (Normodyne), 100 MG PO BID Leflunomide (Arava), 10 MG PO DAILY Morphine Sulfate (Morphine Sulfate Er), 30 MG PO BID Omeprazole (Prilosec), 20 MG PO BID Potassium Chloride Microencaps (Potassium Chloride Er), 10 MEQ PO BID Prednisone (Prednisone), 8 MG PO DAILY Scheduled PRN Morphine Sulfate Ir (Morphine Sulfate Ir), 30 MG PO BID PRN for Pain Allergies Coded Allergies: No Known Allergies (Verified , 07/16/17) Physical Exam Vital Signs Date Time Temp Pulse Resp B/P (MAP) Pulse Ox O2 Delivery O2 Flow Rate FiO2 07/16/17 17:11 75 16 149/90 96 Room Air 07/16/17 15:33 70 154/97 96 Room Air 07/16/17 15:00 72 151/97 96 Room Air 07/16/17 14:31 73 07/16/17 14:24 85 19 181/100 95 Room Air 07/16/17 13:59 37.0 97 18 153/107 96 Room Air Physical Exam GENERAL: Sitting up in bed, alert, well appearing, well nourished, minimal distress, non-toxic EYE EXAM: normal conjunctiva. OROPHARYNX: no exudate, no erythema, lips, buccal mucosa, and tongue normal and mucous membranes are moist NECK: supple, no nuchal rigidity, no adenopathy, non-tender LUNGS: Clear to auscultation. Normal chest wall mechanics HEART: no murmurs, S1 normal and S2 normal ABDOMEN: abdomen soft, non-tender, normo-active bowel sounds, no masses, no rebound or guarding. BACK: Back is symmetrical on inspection and there is no deformity, no midline tenderness, no CVA tenderness. SKIN: no rashes and no bruising UPPER EXTREMITIES: upper extremities are grossly normal. Radial pulses equal bilaterally. LOWER EXTREMITIES: No pitting edema. Calves equal bilaterally. NEURO EXAM: Normal sensorium, cranial nerves II-XII grossly intact, normal speech, no gross weakness of arms, no gross weakness of legs. Medical Decision & Procedures ER Provider Diagnostic Interpretation: Radiology results as stated below per my review and the radiologist's interpretation: CT ANGIOGRAM OF THE CHEST FINDINGS: Thyroid: Imaged portions of the thyroid gland are normal in size and attenuation. Thoracic aorta: The thoracic aorta is normal in caliber and demonstrates standard 3-vessel arch anatomy. No dissection is seen. Pulmonary vasculature: The pulmonary trunk is normal in caliber. There are no filling defects identified in main, lobar, or segmental pulmonary branches to suggest pulmonary embolus. Heart: The heart is enlarged and there is trace pericardial effusion. Lungs and pleural spaces: There is chronic elevation of the right hemidiaphragm with associated atelectasis. No airspace consolidation or pleural effusion is seen. The trachea and central airways are clear. Mediastinum: There is no mediastinal lymphadenopathy. Saima: Clear. Axillae: There is no axillary lymphadenopathy. Upper abdomen: Partially visualized upper abdominal viscera is within normal limits. Skeletal structures: Arthritic change is noted in the right shoulder and throughout the thoracic spine. No lytic or blastic bony lesions are seen. IMPRESSION: 1. There is no evidence of pulmonary embolus in the main, lobar, or segmental pulmonary arteries. 2. The lungs are clear. 3. Cardiomegaly. Electronically signed by: Mir Villalba M.D. 07/16/2017 3:39 PM Laboratory Results 07/16/17 14:19 Red Blood Count 4.83, Mean Corpuscular Volume 89.0, Mean Corpuscular Hemoglobin 30.6, Mean Corpuscular Hemoglobin Concent 34.4, Mean Platelet Volume 9.8, Neutrophils (%) (Auto) 82.3, Lymphocytes (%) (Auto) 10.7, Monocytes (%) (Auto) 6.1, Eosinophils (%) (Auto) 0.5, Basophils (%) (Auto) 0.3, Neutrophils # (Auto) 6.09, Lymphocytes # (Auto) 0.79, Monocytes # (Auto) 0.45, Eosinophils # (Auto) 0.04, Basophils # (Auto) 0.02 07/16/17 14:19 Test 07/16/17 14:19 07/16/17 15:21 White Blood Count 7.40 K/uL (4.8-10.8) Red Blood Count 4.83 M/uL (4.7-6.1) Hemoglobin 14.8 g/dL (14.0-18.0) Hematocrit 43.0 % (42-52) Mean Corpuscular Volume 89.0 fL (80-100) Mean Corpuscular Hemoglobin 30.6 pg (25-34) Mean Corpuscular Hemoglobin Concent 34.4 g/dl (32-36) Platelet Count 235 K/uL (130-400) Mean Platelet Volume 9.8 fL (7.4-10.4) Neutrophils (%) (Auto) 82.3 % Lymphocytes (%) (Auto) 10.7 % Monocytes (%) (Auto) 6.1 % Eosinophils (%) (Auto) 0.5 % Basophils (%) (Auto) 0.3 % Neutrophils # (Auto) 6.09 K/uL (1.4-6.5) Lymphocytes # (Auto) 0.79 K/uL (1.2-3.4) Monocytes # (Auto) 0.45 K/uL (0.11-0.59) Eosinophils # (Auto) 0.04 K/uL (0-0.5) Basophils # (Auto) 0.02 K/uL (0-0.2) RDW Standard Deviation 40.9 fL (36.4-46.3) RDW Coefficient of Variation 12.6 % (11.5-14.5) Immature Granulocyte % (Auto) 0.1 % Immature Granulocyte # (Auto) 0.01 K/uL (0.00-0.02) Anion Gap 7.0 mmol/L (3-11) Est Creatinine Clear Calc Drug Dose 123.9 ml/min Estimated GFR () 122.8 Estimated GFR (Non- 105.9 BUN/Creatinine Ratio 8.4 (10-20) Calcium Level 8.4 mg/dl (8.5-10.1) Magnesium Level 2.2 mg/dl (1.8-2.4) Total Bilirubin 0.6 mg/dl (0.2-1) Aspartate Amino Transf (AST/SGOT) 17 U/L (15-37) Alanine Aminotransferase (ALT/SGPT) 21 U/L (12-78) Alkaline Phosphatase 73 U/L (45-117) Troponin I < 0.015 ng/ml (0-0.045) Total Protein 6.6 gm/dl (6.4-8.2) Albumin 3.6 gm/dl (3.4-5.0) Globulin 3.0 gm/dl (2.5-4.0) Albumin/Globulin Ratio 1.2 (0.9-2) Lipase 487 U/L (73-393) Urine Color YELLOW Urine Appearance CLEAR (CLEAR) Urine pH 7.5 (4.5-7.5) Urine Specific [place] 1.005 (1.000-1.030) Urine Protein NEG (NEG) Urine Glucose (UA) NEG (NEG) Urine Ketones NEG (NEG) Urine Occult Blood NEG (NEG) Urine Nitrite NEG (NEG) Urine Bilirubin NEG (NEG) Urine Urobilinogen NEG (NEG) Urine Leukocyte Esterase NEG (NEG) Laboratory results per my review. Medications Administered Medications (Trade) Dose Ordered Sig/[place] Route Start Time Stop Time Status Last Admin Dose Admin Ondansetron HCl (Zofran Inj) 4 mg NOW STAT IV 07/16/17 14:18 07/16/17 14:19 DC 07/16/17 14:27 4 MG Morphine Sulfate (MoRPHine SULFATE INJ) 2 mg NOW STAT IV 07/16/17 14:18 07/16/17 14:19 DC 07/16/17 14:28 2 MG Aspirin (Aspirin Chew) 324 mg NOW STAT PO 07/16/17 14:19 07/16/17 14:20 DC 07/16/17 14:27 324 MG Nitroglycerin (Nitrostat Tab) 0.4 mg NOW STAT SL 07/16/17 15:19 07/16/17 15:21 DC 07/16/17 15:36 0.4 MG Potassium Chloride (Klor-Con Tab) 40 meq NOW STAT PO 07/16/17 15:21 07/16/17 15:22 DC 07/16/17 15:36 40 MEQ Famotidine 20 mg/ Dextrose 102 ml @ 200 mls/hr ONE STAT IV 07/16/17 16:02 07/16/17 16:32 DC 07/16/17 17:10 200 MLS/HR Calcium Carbonate (Tums Chew Tab) 1,500 mg ONE STAT PO 07/16/17 16:02 07/16/17 16:03 DC 07/16/17 17:16 1,500 MG ECG Per My Interpretation Indication: chest pain Rate (beats per minute): 80 Rhythm: sinus rhythm Findings: LBBB, ST depression (inferior and lateral), ST elevation (AVL), other (Normal axis. ) ED Course ED COURSE: Vital signs were reviewed and showed hypertension The patients medical record was reviewed The above diagnostic studies were performed and reviewed. ED treatments and interventions as stated above. 1416: The patient was evaluated in room C4. A complete history and physical examination was performed. 1418: Ordered Morphine Sulfate 2 mg IV, Zofran Inj 4 mg IV, Aspirin 324 mg PO. 1519: Ordered Nitrostat Tab 0.4 mg SL. 1521: Ordered Klor-Con Tab 40 meq PO. 1530: Ordered Nitrostat 0.4 mg SL. 1555: The patient's pain has improved with nitroglycerin. 1558: EMR reviewed. The patient had a cardiac catheterization in 2004 which was normal. 1610: Upon reevaluation, the patient is resting comfortably. I discussed my findings with the patient and he understands and agrees with the treatment plan. Based on the patients age, coexisting illnesses, exam and lab findings the decision to treat as an inpatient was made. The patient remained stable while under my care. The patient will be evaluated for further management. Medical Decision Differential diagnoses includes but is not limited to acute coronary syndrome, myocardial infarction, pericarditis, pulmonary embolus, aortic dissection, pneumonia, pneumothorax, musculoskeletal, shingles, esophageal. Patient is a 56-year-old male with a past medical history of hypertension and cardiomyopathy that presents to the ER for feeling of heart palpitations in combination with a chest heaviness and shortness of breath. CBC along with BMP shows a mild hypokalemia. LFTs, bilirubin and troponin were negative. Lipase was slightly elevated at 400. He has no abdominal tenderness to suggest pancreatitis. CTA of the chest was performed and shows no PEs or dissection. Patient was given nitroglycerin and a complete resolution of his chest pain. Last catheterization was in 2004 was clean. EKG did show a left bundle with may be slight worsening of the depression in the lateral leads. EKG was otherwise unremarkable. Patient was given aspirin as well. Case was discussed with cardiology by my resident. Will bring him in for chest pain rule out with his history of hypertension, cardiomyopathy. Medication Reconcilliation Current Medication List: was personally reviewed by me Blood Pressure Screening Patient's blood pressure: Elevated blood pressure Blood pressure disposition: Referred to PCP Consults Time Called: 1605 Consulting Physician: Dr. Alicia JIN Hospitalist Returned Call: 1620 I reviewed the patient's case with Dr. Vargas. DAVIN will evaluate the patient for further management. Impression Primary Impression: Precordial chest pain Additional Impression: Hypokalemia Scribe Attestation The scribe's documentation has been prepared under my direction and personally reviewed by me in its entirety. I confirm that the note above accurately reflects all work, treatment, procedures, and medical decision making performed by me. Departure Information Dispostion Being Evaluated By Hospitalist Referrals Giuseppe Romero M.D. (PCP) Patient Instructions My [facility] Problem Qualifiers
[2017-07-16] MEDS ORDERED: MoRPHine SULFATE IR 15 MG TAB (IMMEDIATE RELEASE) PO PRN (18:15)
[2017-07-16] MEDS ORDERED: AMLODIPINE BESYLATE 5 MG TAB PO PRN (18:45)
[2017-07-16] MEDS ORDERED: AMLODIPINE BESYLATE 5 MG TAB PO ONE (19:04)
[2017-07-16] MEDS ORDERED: IV FLUIDS COMPLETED PRN (19:15)
--- NOTE | 2017-07-16 20:45 | History and Physical ---
History & Physical Date & Time of Service: Jul 16, 2017 at 20:44 Chief Complaint: Chest Pain, Sob Primary Care Physician: Giuseppe Romero M.D. Past Medical/Surgical History Medical Problems: (1) Hypertension Status: Chronic Family History FH: heart attack FATHER (64) SISTER, Onset:62 Social History Smoking Status: Never Smoker Marital Status: Occupational Status: retired Immunizations History of Influenza Vaccine: Yes History of Tetanus Vaccine?: Yes History of Pneumococcal: Yes Pneumococcal Date: Jan 24, 2013 History of Hepatitis B Vaccine: No Multi-Drug Resistant Organisms History of MDRO: No Allergies Coded Allergies: No Known Allergies (Verified , 07/16/17) Home Medications Scheduled Buspirone HCl (Buspirone HCl), 1 TAB PO TID Celecoxib (Celecoxib), 1 CAP PO BID Doxazosin Mesylate (Doxazosin Mesylate), 1 TAB PO DAILY Gabapentin (Neurontin), 100 MG PO TID Labetalol Hcl (Normodyne), 100 MG PO BID Leflunomide (Arava), 10 MG PO DAILY Morphine Sulfate (Morphine Sulfate Er), 30 MG PO BID Omeprazole (Prilosec), 20 MG PO BID Potassium Chloride Microencaps (Potassium Chloride Er), 10 MEQ PO BID Prednisone (Prednisone), 8 MG PO DAILY Scheduled PRN Morphine Sulfate Ir (Morphine Sulfate Ir), 30 MG PO BID PRN for Pain Physical Exam Vital Signs Date Time Temp Pulse Resp B/P (MAP) Pulse Ox O2 Delivery O2 Flow Rate FiO2 07/16/17 20:25 95 15 175/103 97 Room Air 07/16/17 19:31 149/74 07/16/17 19:30 97 20 98 07/16/17 19:01 167/107 07/16/17 19:00 96 16 98 07/16/17 18:58 92 17 185/109 98 Room Air 07/16/17 17:30 72 155/87 96 Room Air 07/16/17 17:11 75 16 149/90 96 Room Air 07/16/17 15:33 70 154/97 96 Room Air 07/16/17 15:00 72 151/97 96 Room Air 07/16/17 14:31 73 07/16/17 14:24 85 19 181/100 95 Room Air 07/16/17 13:59 37.0 97 18 153/107 96 Room Air Diagnostics Laboratory Results Results Past 24 Hours Test 07/16/17 14:19 07/16/17 15:21 Range/Units White Blood Count 7.40 4.8-10.8 K/uL Red Blood Count 4.83 4.7-6.1 M/uL Hemoglobin 14.8 14.0-18.0 g/dL Hematocrit 43.0 42-52 % Mean Corpuscular Volume 89.0 80-100 fL Mean Corpuscular Hemoglobin 30.6 25-34 pg Mean Corpuscular Hemoglobin Concent 34.4 32-36 g/dl Platelet Count 235 130-400 K/uL Mean Platelet Volume 9.8 7.4-10.4 fL Neutrophils (%) (Auto) 82.3 % Lymphocytes (%) (Auto) 10.7 % Monocytes (%) (Auto) 6.1 % Eosinophils (%) (Auto) 0.5 % Basophils (%) (Auto) 0.3 % Neutrophils # (Auto) 6.09 1.4-6.5 K/uL Lymphocytes # (Auto) 0.79 1.2-3.4 K/uL Monocytes # (Auto) 0.45 0.11-0.59 K/uL Eosinophils # (Auto) 0.04 0-0.5 K/uL Basophils # (Auto) 0.02 0-0.2 K/uL RDW Standard Deviation 40.9 36.4-46.3 fL RDW Coefficient of Variation 12.6 11.5-14.5 % Immature Granulocyte % (Auto) 0.1 % Immature Granulocyte # (Auto) 0.01 0.00-0.02 K/uL Sodium Level 138 136-145 mmol/L Potassium Level 3.0 3.5-5.1 mmol/L Chloride Level 104 98-107 mmol/L Carbon Dioxide Level 27 21-32 mmol/L Anion Gap 7.0 3-11 mmol/L Blood Urea Nitrogen 6 7-18 mg/dl Creatinine 0.67 0.60-1.40 mg/dl Est Creatinine Clear Calc Drug Dose 123.9 ml/min Estimated GFR () 122.8 Estimated GFR (Non- 105.9 BUN/Creatinine Ratio 8.4 10-20 Random Glucose 120 70-99 mg/dl Calcium Level 8.4 8.5-10.1 mg/dl Magnesium Level 2.2 1.8-2.4 mg/dl Total Bilirubin 0.6 0.2-1 mg/dl Aspartate Amino Transf (AST/SGOT) 17 15-37 U/L Alanine Aminotransferase (ALT/SGPT) 21 12-78 U/L Alkaline Phosphatase 73 45-117 U/L Troponin I < 0.015 0-0.045 ng/ml Total Protein 6.6 6.4-8.2 gm/dl Albumin 3.6 3.4-5.0 gm/dl Globulin 3.0 2.5-4.0 gm/dl Albumin/Globulin Ratio 1.2 0.9-2 Lipase 487 73-393 U/L Urine Color YELLOW Urine Appearance CLEAR CLEAR Urine pH 7.5 4.5-7.5 Urine Specific [place] 1.005 1.000-1.030 Urine Protein NEG NEG Urine Glucose (UA) NEG NEG Urine Ketones NEG NEG Urine Occult Blood NEG NEG Urine Nitrite NEG NEG Urine Bilirubin NEG NEG Urine Urobilinogen NEG NEG Urine Leukocyte Esterase NEG NEG Impression Assessment and Plan obs #[id number] VTE Prophylaxis VTE Risk Assessment Done? Y/N: Yes Risk Level: Moderate
[2017-07-16] MEDS ORDERED: POTASSIUM CHLORIDE 10 MEQ TABCR PO SCH (21:00)
--- NOTE | 2017-07-16 21:20 | HISTORY & PHYSICAL EXAMINATION ---
DATE OF ADMISSION: 07/16/2017 CHIEF COMPLAINT: Chest pain. HISTORY OF PRESENT ILLNESS: The patient is a very pleasant 56-year-old male who presents with chest pain onset about 5:00 a.m. this morning, started substernal pressure but seems to be very intense. He almost feels like there is something in there and if he moves around he could get it to go away, but it does not go away, comes spontaneously without any clear provoking factors, last 2-4 minutes per episode, goes away without any known alleviating factors and then it is gone until it happens again. This happened several times throughout the earlier part of the day and then he had about 4 episodes of diarrhea afterwards. He is feeling better now but came to the ER for further evaluation. REVIEW OF SYSTEMS: Positive for having indigestion last night after eating [place] food that did not agree with him. Review of systems otherwise negative except for as above. PAST MEDICAL HISTORY: Includes rheumatoid arthritis and prior hypertension, although he notes this improved and recently he is not needed to be on any meds. FAMILY HISTORY: Includes coronary artery disease/heart attack. SOCIAL HISTORY: He is not a smoker, former heavy alcohol, none for couple of years. ALLERGIES: No known drug allergies. PAST SURGICAL HISTORY: None of significance. HOME MEDICATIONS: Listed as BuSpar, celecoxib, doxazosin, gabapentin, labetalol, leflunomide, morphine both extended and short acting, omeprazole, potassium, and prednisone. PHYSICAL EXAMINATION: VITAL SIGNS: Temperature 37, pulse 97, respiratory rate 18, blood pressure 153/107, 96% on room air. GENERAL: He is awake, alert, oriented x3, pleasant, in no acute distress. HEENT: Normocephalic, atraumatic. Mucous membranes are moist. CARDIOVASCULAR: Regular. No rubs, murmurs or gallops. LUNGS: Clear to auscultation bilaterally. No rales, rhonchi or wheezes. Good effort. ABDOMEN: Soft. He does have epigastric tenderness, without guarding, rebound or rigidity. EXTREMITIES: Show no cyanosis, clubbing or edema. No calf tenderness. SKIN: Shows no rashes, no pallor or icterus. NEUROLOGIC: Shows cranial nerves II through XII to be grossly intact. Gross motor and sensory are intact. LABORATORIES AND DIAGNOSTICS: His EKG shows left bundle branch block. This is old. CBC shows a white count of 7.4, hemoglobin 14.8, platelets 235. Sodium 138, potassium 3, chloride 104, CO2 27, BUN 6, creatinine 0.67, calcium 8.4, glucose 120, mag 2.2, total bilirubin 0.6, AST 17, ALT 21, alkaline phosphatase 73, troponin of less than 0.015. Total protein 6.6, lipase 487. Urinalysis, specific gravity 1.005 with a pH of 7.5. Chest CT angio essentially is negative and no PE specifically. ASSESSMENT AND PLAN: 1. Chest pain. This appears probably to be esophageal spasm. It is unclear if the etiology is a viral gastroenteritis versus indigestion from [place] food; however, either way it appears much more likely to be gastrointestinal than cardiac. That said, he is a male with some degree of hypertension or at least prior hypertension so certainly risk is high. We will observe with serial cardiac enzymes and then due to his left bundle branch block, a nuclear medicine stress test tomorrow if the enzymes are negative. 2. Esophageal spasm. This appears to be the most likely etiology of his pain. We will initiate amlodipine. He notes he has actually been on this before. P.r.n. nitro to help for now. 3. Diarrhea, it is unclear if this is due to gastric dysmotility following nausea influenced peristalsis causing diarrhea versus viral gastroenteritis. I have asked that proper contact precautions be in place. 4. Rheumatoid arthritis. Continue his chronic meds. 5. Deep venous thrombosis prophylaxis, ambulation. [facility] CENTERAsmita
[2017-07-16 21:26] VITALS: BP 194/104; TEMP 36.4; O2SAT 97; Ht 170.2 cm; Wt 79.6 kg
[2017-07-16] MEDS ORDERED: DOXAZosin MESYLATE TAB 4 MG TAB PO SCH (21:30)
[2017-07-16] MEDS: MoRPHine SULFATE CR 15 MG TAB (MS CONTIN) PO SCH (21:37)
[2017-07-16] MEDS: BusPIRone 15 MG TAB PO SCH (22:00)
[2017-07-16] MEDS: PANTOprazole SOD 40 MG TAB PO SCH (22:00)
[2017-07-16] MEDS: LABETALOL HCL 100 MG TAB PO SCH (22:00)
[2017-07-16] MEDS: CeleBREX 200 MG CAP PO SCH (22:00)
[2017-07-16] MEDS: GABAPENTIN 100 MG CAP PO SCH (22:01)
[2017-07-16 23:27] VITALS: BP 192/98; PULSE 79; TEMP 36.6; O2SAT 94
[2017-07-17] VITALS (11 sets, daily range): BP systolic 155–193; BP diastolic 80–106; PULSE 73–144; TEMP 36.5–37; O2SAT 95–97
[2017-07-17] MEDS: ACETAMINOPHEN 325 MG TAB PO PRN ×3 (00:44→15:40)
[2017-07-17] MEDS ORDERED: KETOROLAC TROMETHAMINE 30 MG/ML VIAL IV STA (04:06)
[2017-07-17] MEDS ORDERED: HydrALAZINE HCL 20 MG/ML VIAL IV. STA (05:54)
[2017-07-17] MEDS ORDERED: GI COCKTAIL PO STA ×2 (05:57→07:32)
[2017-07-17] MEDS ORDERED: MoRPHine SULFATE 2 MG/ML CARP IV STA (06:01)
[2017-07-17] MEDS ORDERED: ALUMINUM/MAGNESIUM SUSP 18 ML, LIDOCAINE HCL 2% VISCOUS SOLN 6 ML, BARCODE IDENTIFIER 1 EA PO SCH ×2 (06:15)
[2017-07-17] MEDS ORDERED: NITROGLYCERIN 0.4 MG SL PER TAB CHARGE SL PRN ×2 (07:15→07:45)
[2017-07-17] MEDS ORDERED: NITROGLYCERIN 0.4 MG SL PER TAB CHARGE ONE (07:15)
[2017-07-17] MEDS ORDERED: NITROGLYCERIN 0.4 MG SL PER TAB CHARGE SL ONE (07:33)
[2017-07-17] MEDS: GABAPENTIN 100 MG CAP PO SCH ×2 (07:44→13:21)
[2017-07-17] MEDS: BusPIRone 15 MG TAB PO SCH ×2 (07:44→13:21)
[2017-07-17] MEDS: LABETALOL HCL 100 MG TAB PO SCH (07:45)
[2017-07-17] MEDS: PANTOprazole SOD 40 MG TAB PO SCH (07:45)
[2017-07-17] MEDS ORDERED: AMLODIPINE BESYLATE 5 MG TAB PO SCH (07:45)
[2017-07-17] MEDS: CeleBREX 200 MG CAP PO SCH (07:45)
[2017-07-17] MEDS ORDERED: ALUMINUM/MAGNESIUM SUSP 18 ML, LIDOCAINE HCL 2% VISCOUS SOLN 6 ML, BARCODE IDENTIFIER 1 EA PO ONE ×2 (07:45)
[2017-07-17] MEDS: MoRPHine SULFATE CR 15 MG TAB (MS CONTIN) PO SCH (07:51)
[2017-07-17] MEDS ORDERED: REGADENOSON 0.4 MG/5 ML SYR ONE (08:46)
[2017-07-17] MEDS ORDERED: POTASSIUM CHLORIDE 20 MEQ TABCR PO SCH (09:00)
[2017-07-17] MEDS ORDERED: NURSING VERBAL MED ORDER ONE (13:15)
[2017-07-17] MEDS ORDERED: AMLODIPINE BESYLATE 5 MG TAB PO STA (13:16)
[2017-07-17] MEDS ORDERED: OPTIRAY 320 IV PRN (14:30)
[2017-07-17] MEDS ORDERED: LORAZEPAM 2 MG/ML 1 ML VIAL IV PRN (14:45)
--- NOTE | 2017-07-17 15:47 | DIAGNOSTIC IMAGING REPORT ---
CHEST COMBO ANGIOGRAPHY CLINICAL HISTORY: Dyspnea Chest pain TECHNIQUE: Multiphase evaluation of the thoracic aorta COMPARISON STUDY: 07/16/2017 FINDINGS: The thoracic aorta is normal in course and caliber. There is no evidence for aneurysm or dissection. Suboptimal opacification of the pulmonary arterial vasculature shows no major evidence for filling defect of the pulmonary arterial structures. Lungs are considered clear. IMPRESSION: 1. No evidence for aneurysm or dissection. 2. Negative CT of the chest. The lungs are clear. 3. No evidence for pulmonary embolus The above report was generated using voice recognition software. It may contain grammatical, syntax or spelling errors. Electronically signed by: Jomar Staley M.D. 07/17/2017 3:45 PM Dictated Date/Time: 07/17/2017 3:39 PM
--- NOTE | 2017-07-17 16:53 | Myocardial Perfusion Study ---
Myocardial Perfusion Study Rpt Myocardial Perfusion Study Rpt Date of Service 07/17/2017 Myocardial Perfusion Study Rpt Procedure: 1. Myocardial perfusion study performed in multiple views/images 2. Lexiscan pharmacologic stress ECG Indications: 1. Chest pain 2. LBBB 3. Cardiomyopathy Consent: Informed written consent was obtained prior to the procedure. Ordering physician: Dr. Rogers Procedural details: For the stress portion of the study, Lexiscan 0.4 mg was intravenously administered followed by a saline flush. This was followed by 33.1 mCi of technetium 99m Cardiolite, injected at 11:30 a.m. on 07/17/2017. 30 minutes following the injection, imaging of the heart was performed in multiple projections. For the rest portion of the study, 10.7 mCi technetium 99m Cardiolite was injected intravenously at 9:30 a.m. on 07/17/2017. 1 hour following the injection, imaging of the heart was performed in the same projections. Lexiscan stress ECG: Resting ECG demonstrated: Sinus rhythm at 99 bpm. LBBB. Maximum heart rate: 141 bpm Resting blood pressure: 153/86 mmHg Maximum blood pressure: 161/102 mmHg Maximal, age-predicted heart rate: 87 % Significant ST changes: None Arrhythmia: None Symptoms: He had constant chest pain since admission which continued prior to this test and throughout the test. After Lexiscan he developed palpitations and lightheadedness. Findings: Rotating raw imaging demonstrated no significant lung uptake. There is no significant motion artifact. Heart size appeared normal. Myocardial perfusion demonstrated very mildly reduced uptake involving the base to mid septum following stress with a much more extensive area at rest. Resting perfusion defect involves the base to apical septum, and base to apical anteroseptum. Left bundle-branch block could account for perfusion defects. There is no significant reversible defect. Ejection fraction: 49 % Wall motion: Normal No significant transient ischemic dilation. Impression: 1. No significant ischemic changes suggested on myocardial perfusion study imaging. 2. No significant infarct suggested. 3. Mildly reduced LV systolic function. EF 49%. 4. Normal wall motion. 5. Constant chest pain prior to the study, which did not worsen with Lexiscan. 6. Indeterminate Lexiscan ECG due to LBBB.
[2017-07-17] MEDS ORDERED: NRV5 PO (18:31)
--- NOTE | 2017-07-17 18:35 | Discharge Instructions ---
Discharge Instructions Date of Service Jul 17, 2017. Admission Reason for Admission: Chest Pain Discharge Discharge Diagnosis / Problem: esophageal related chest pain Discharge Goals Goal(s): Diagnostic testing, Therapeutic intervention Activity Recommendations Activity Limitations: resume your previous activity . Instructions / Follow-Up Instructions / Follow-Up your chest pain appears heavily related to your esophagus, most consistent with esophageal spasm. this can hurt like crazy, and fits your symptom profile quite clearly. we'll treat with amlodipine - it is a medication most commonly used to lower blood pressure, but can also help calm down esophagus spasms in that it dilates smooth muscle. it can (rarely) cause leg swelling - if that's the case, stop it and Dr Romero can substitute a different medication the elevations in your blood pressure are far and away most likely due to the pain - pain causes your fight or flight nervous system to trigger, and then the fight or flight nervous system raises your pressure. it's quite likely that when you are in less pain your BP will improve. obviously continue to follow your numbers frequently so that if this does not happen Dr Romero can intervene appropriately. your testing effectively ruled out any cardiovascular or cardiopulmonary cause, and again the symptoms fit far and away best with esophageal pain Current Hospital Diet Patient's current hospital diet: Regular Diet Discharge Diet Recommended Diet: Regular Diet Pending Studies Studies pending at discharge: no Medical Emergencies . Who to Call and When: Medical Emergencies: If at any time you feel your situation is an emergency, please call 911 immediately. . Non-Emergent Contact Non-Emergency issues call your: Primary Care Provider, Evp And Chief Operating Officer . . "Provider Documentation" section prepared by Nahun Rogers. . VTE Core Measure Inpt VTE Proph given/why not?: Treatment not indicated
--- NOTE | 2017-07-17 19:05 | Discharge Summary ---
Discharge Summary Date of Service Jul 17, 2017. Discharge Summary Admission Date: Jul 16, 2017 at 18:12 Discharge Date: Jul 17, 2017 Discharge Disposition: Home Principal Diagnosis: esophageal spasm Immunizations: Have You Had Influenza Vaccine: Yes History of Tetanus Vaccine?: Yes History of Pneumococcal: Yes Pneumococcal Date: Jan 24, 2013 History of Hepatitis B Vaccine: No Procedures: Myocardial Perfusion Study Rpt Myocardial Perfusion Study Rpt Date of Service 07/17/2017 Myocardial Perfusion Study Rpt Procedure: 1. Myocardial perfusion study performed in multiple views/images 2. Lexiscan pharmacologic stress ECG Indications: 1. Chest pain 2. LBBB 3. Cardiomyopathy Consent: Informed written consent was obtained prior to the procedure. Ordering physician: Dr. Rogers Procedural details: For the stress portion of the study, Lexiscan 0.4 mg was intravenously administered followed by a saline flush. This was followed by 33.1 mCi of technetium 99m Cardiolite, injected at 11:30 a.m. on 07/17/2017. 30 minutes following the injection, imaging of the heart was performed in multiple projections. For the rest portion of the study, 10.7 mCi technetium 99m Cardiolite was injected intravenously at 9:30 a.m. on 07/17/2017. 1 hour following the injection, imaging of the heart was performed in the same projections. Lexiscan stress ECG: Resting ECG demonstrated: Sinus rhythm at 99 bpm. LBBB. Maximum heart rate: 141 bpm Resting blood pressure: 153/86 mmHg Maximum blood pressure: 161/102 mmHg Maximal, age-predicted heart rate: 87 % Significant ST changes: None Arrhythmia: None Symptoms: He had constant chest pain since admission which continued prior to this test and throughout the test. After Lexiscan he developed palpitations and lightheadedness. Findings: Rotating raw imaging demonstrated no significant lung uptake. There is no significant motion artifact. Heart size appeared normal. Myocardial perfusion demonstrated very mildly reduced uptake involving the base to mid septum following stress with a much more extensive area at rest. Resting perfusion defect involves the base to apical septum, and base to apical anteroseptum. Left bundle-branch block could account for perfusion defects. There is no significant reversible defect. Ejection fraction: 49 % Wall motion: Normal No significant transient ischemic dilation. Impression: 1. No significant ischemic changes suggested on myocardial perfusion study imaging. 2. No significant infarct suggested. 3. Mildly reduced LV systolic function. EF 49%. 4. Normal wall motion. 5. Constant chest pain prior to the study, which did not worsen with Lexiscan. 6. Indeterminate Lexiscan ECG due to LBBB. <Electronically signed by Hoang Knight M.D.> = [~ rep ct add3]] CHEST COMBO ANGIOGRAPHY CLINICAL HISTORY: Dyspnea Chest pain TECHNIQUE: Multiphase evaluation of the thoracic aorta COMPARISON STUDY: 07/16/2017 FINDINGS: The thoracic aorta is normal in course and caliber. There is no evidence for aneurysm or dissection. Suboptimal opacification of the pulmonary arterial vasculature shows no major evidence for filling defect of the pulmonary arterial structures. Lungs are considered clear. IMPRESSION: 1. No evidence for aneurysm or dissection. 2. Negative CT of the chest. The lungs are clear. 3. No evidence for pulmonary embolus The above report was generated using voice recognition software. It may contain grammatical, syntax or spelling errors. Electronically signed by: Jomar Staley M.D. 07/17/2017 3:[address] ANGIOGRAM OF THE CHEST CLINICAL HISTORY: Atypical chest pain. COMPARISON STUDY: Chest CT scans dated 07/16/2015 and 07/24/2013. TECHNIQUE: Following the IV administration of 95 cc of Optiray 320, CT angiogram of the chest was performed from the upper abdomen to the thoracic inlet utilizing the pulmonary embolus protocol. Images are reviewed in the axial, sagittal, and coronal planes. 3-D MIPS images are created and assessed. IV contrast was administered without complication. A dose lowering technique was utilized adhering to the principles of ALARA. The examination is modestly degraded by motion artifact. CT DOSE: 260.43 mGy.cm FINDINGS: Thyroid: Imaged portions of the thyroid gland are normal in size and attenuation. Thoracic aorta: The thoracic aorta is normal in caliber and demonstrates standard 3-vessel arch anatomy. No dissection is seen. Pulmonary vasculature: The pulmonary trunk is normal in caliber. There are no filling defects identified in main, lobar, or segmental pulmonary branches to suggest pulmonary embolus. Heart: The heart is enlarged and there is trace pericardial effusion. Lungs and pleural spaces: There is chronic elevation of the right hemidiaphragm with associated atelectasis. No airspace consolidation or pleural effusion is seen. The trachea and central airways are clear. Mediastinum: There is no mediastinal lymphadenopathy. Saima: Clear. Axillae: There is no axillary lymphadenopathy. Upper abdomen: Partially visualized upper abdominal viscera is within normal limits. Skeletal structures: Arthritic change is noted in the right shoulder and throughout the thoracic spine. No lytic or blastic bony lesions are seen. IMPRESSION: 1. There is no evidence of pulmonary embolus in the main, lobar, or segmental pulmonary arteries. 2. The lungs are clear. 3. Cardiomegaly. Electronically signed by: Mir Villalba M.D. 07/16/2017 3:39 PM Last 24 Hours Test 07/17/17 00:12 07/17/17 04:20 07/17/17 07:50 Troponin I < 0.015 ng/ml < 0.015 ng/ml < 0.015 ng/ml Consultations: GI Medication Reconciliation New Medications: Amlodipine Besylate (Amlodipine Besylate) 5 Mg Tab 5 MG PO QAM, #30 TAB Continued Medications: Buspirone HCl (Buspirone HCl) 15 Mg Tab 1 TAB PO TID Celecoxib (Celecoxib) 200 Mg Cap 1 CAP PO BID Doxazosin Mesylate (Doxazosin Mesylate) 8 Mg Tab 1 TAB PO DAILY Gabapentin (Neurontin) 100 Mg Cap 100 MG PO TID, CAP Labetalol Hcl (Normodyne) 100 Mg Tab 100 MG PO BID, TAB Leflunomide (Arava) 20 Mg Tab 10 MG PO DAILY, TAB Morphine Sulfate (Morphine Sulfate Er) 30 Mg Tab 30 MG PO BID Morphine Sulfate Ir (Morphine Sulfate Ir) 30 Mg Tab 30 MG PO BID PRN for Pain, TAB Omeprazole (Prilosec) 20 Mg Capcr 20 MG PO BID TAKE THIS MEDICATION DAILY 30 MINUTES PRIOR TO THE 2 BIGGEST MEALS OF THE DAY. Potassium Chloride Microencaps (Potassium Chloride Er) 10 Meq Tab 10 MEQ PO BID Prednisone (Prednisone) 5 Mg Tab 8 MG PO DAILY Discharge Exam Physical Exam: General Appearance: no apparent distress Eyes: EOMI Neck: trachea midline Respiratory/Chest: no respiratory distress, no accessory muscle use Extremities: normal inspection Neurologic/Psychiatric: medical orderly II-XII nml as tested, alert Skin: normal color, warm/dry Hospital Course chest pain -appearing highly likely to be esophageal spasm -amlodipine -GI eval (to be seen inpatient and then follow up outpt - but pt notes he's good to go home) -PE/pulmonary pathology ruled out w normal vitals and normal chest CT -cardiovascular pathology ruled out w negative enzymes, no acute findings on stress, no aortic pathology on CT -stable for home -PCP and GI outpt f/u Total Time Spent: Greater than 30 minutes This includes examination of the patient, discharge planning, medication reconciliation, and communication with other providers. Discharge Instructions Please refer to the electronic Patient Visit Report (Discharge Instructions) for additional information. Additional Copies To Zion Wilkerson M.D.; Giuseppe Romero M.D.
== END 2017-07-17 19:20 | disposition home or self-care (01) ==
LOC: C.EDB 13:54 → C.2T 18:12 → ENRESERV 20:45
PROVIDERS: ADMIT Family Medicine; ATTEND Family Medicine
DX: K22.4 Dyskinesia of esophagus (principal); I44.7 Left bundle-branch block, unspecified; I10 Essential (primary) hypertension; Z79.899 Other long term (current) drug therapy; Z82.49 Family history of ischemic heart disease and other diseases of the circulatory system

== ENCOUNTER → 2017-08-04 | Outpatient (CLI) | payer OTHER ==
[~2017-08-04] MED LIST changes: -BSP/10 PO; +BSP15 PO; +CELE1CAP30 PO; +DOXA-10 PO; -DOXA1TAB86 PO; +NRV5 PO; +PRED-301 PO; -TRAM-10 PO
--- NOTE | 2017-08-04 09:49 | DIAGNOSTIC IMAGING REPORT ---
MRI OF THE THORACIC SPINE WITHOUT IV CONTRAST CLINICAL HISTORY: Spinal stenosis. COMPARISON STUDY: Radiographs of the thoracic spine dated 02/07/2013. CT scan of the chest dated 07/17/2017. TECHNIQUE: MRI of the thoracic spine is performed utilizing various T1 and T2-weighted sequences in the axial and sagittal planes. IV contrast was not administered for this examination. The examination is modestly degraded by motion artifact. FINDINGS: Vertebral body height and alignment are maintained throughout the thoracic spine. Marrow signal intensity is slightly heterogeneous. No destructive bony lesion is seen. Degenerative endplate edema is noted at T12-L1 and L1-L2. The transverse and spinous processes are intact as visualized. Small hemangiomas are incidentally noted in T4 and L1. Tiny anterior osteophytes are seen throughout. Degenerative disc desiccation and loss of height is seen throughout the thoracic spine. Posterior disc bulges are seen at C6-C7, C7-T1, T1-T2 and also from T5-6 through T12-L1. No large disc herniation is seen. Disc bulges abut the ventral cord at T10-T11, T11-T12, and T12-L1. The minimum AP canal diameter is seen at T12-L1 and measures up to 9 mm. The thoracic spinal cord is normal in morphology and signal intensity. The conus medullaris terminates at the level of L1. Facet arthropathy causes moderate to severe bilateral neural foraminal stenosis at T10-T11. Mild neural foraminal stenosis is seen on the left at T11-T12. The paraspinous soft tissues are normal as visualized. The lung parenchyma is grossly normal but not well assessed by MRI. IMPRESSION: 1. There is no disc herniation or high-grade central canal stenosis seen throughout the thoracic spine. 2. Multilevel degenerative disc disease as above. See discussion. 3. No destructive bony process is identified. 4. The thoracic spinal cord is normal in morphology and signal intensity. Dictated: 08/04/2017 9:07 AM Transcribed: 08/04/2017 9:49 AM Domenic Electronically signed by: Mir Villalba M.D. 08/04/2017 10:27 AM Dictated Date/Time: 08/04/2017 9:07 AM
[2017-08-04 10:40] LABS: ALBUMIN 3.7 gm/dl (3.4-5.0); ALT/SGPT 25 U/L (12-78); BLOOD UREA NITROGEN 9 mg/dl (7-18); CALCIUM 8.5 mg/dl (8.5-10.1); CARBON DIOXIDE 27 mmol/L (21-32); CREATININE 0.68 mg/dl (0.60-1.40); GLUCOSE 109 mg/dl (70-99); SODIUM 137 mmol/L (136-145)
[2017-08-04 10:45] LABS: ALKALINE PHOSPHATASE 69 U/L (45-117); AST/SGOT 16 U/L (15-37); TOTAL PROTEIN 6.5 gm/dl (6.4-8.2)
== END | disposition home or self-care (01) ==
LOC: C.MRI 08:14
PROVIDERS: ATTEND Family Medicine
DX: N40.0 Benign prostatic hyperplasia without lower urinary tract symptoms (principal); M48.02 Spinal stenosis, cervical region; M51.34 Other intervertebral disc degeneration, thoracic region

== ENCOUNTER → 2017-08-26 | Outpatient (CLI) | payer OTHER ==
--- NOTE | 2017-08-26 11:45 | DIAGNOSTIC IMAGING REPORT ---
CERVICAL WITHOUT CONTRAST CLINICAL HISTORY: 56 years-old Male presenting with CERVICAL MYELOPATHY M50.00, leg pain for 3 months, body weakness. TECHNIQUE: Multisequence, multiplanar MR imaging of the cervical spine was performed without the use of intravenous contrast. IV contrast: None. COMPARISON: 10/22/2006. FINDINGS: Localizer images: Unremarkable. Postsurgical changes of anterior cervical discectomy and fusion of C4-C6. Regional susceptibility artifact grades evaluation. Nonoperative vertebral body levels demonstrate normal height, alignment, bone marrow signal intensity. Diffuse intervertebral disc desiccation with disc osteophyte complexes noted at the nonoperative levels further detailed below: C2-3: Disc osteophyte complex and uncovertebral hypertrophy results in moderate to severe right and moderate left neural foraminal narrowing. Effacement of the anterior thecal sac and right lateral recess without contouring of the spinal cord. C3-4: Prominent disc osteophyte complex/uncovertebral hypertrophy in combination with ligamentum flavum hypertrophy result in severe bilateral neural foraminal narrowing and circumferential effacement of CSF signal intensity with flattening of the spinal cord. No abnormal spinal cord signal intensity at this level. C4-5: Uncovertebral hypertrophy results in mild right neural foraminal narrowing. No significant spinal canal narrowing. C5-6: No significant neural foraminal or spinal canal narrowing. C6-7: Disc osteophyte complex/uncovertebral hypertrophy result in severe bilateral neural foraminal narrowing. In combination with ligamentum flavum hypertrophy, circumferential effacement of the thecal sac with maintenance of CSF signal intensity. Mild contouring of the spinal cord. C7-T1: Disc osteophyte complex results in moderate right and mild to moderate left neural foraminal narrowing. No second spinal canal narrowing. Cervical spinal cord maintains normal signal intensity despite severe spinal stenosis at C3-4. Craniocervical junction normal. No paraspinal muscular edema. Paraspinal soft tissues within normal limits. IMPRESSION: 1. Postsurgical changes of anterior cervical discectomy and fusion of C4-C6. Mild right neural foraminal narrowing at C4-5. Otherwise no significant neural foraminal or spinal canal narrowing at the operative levels. 2. Significant adjacent level degenerative change at C3-4 and to a lesser extent at C6-7. Severe spinal stenosis at C3-4. Correlate clinically to exclude spinal cord impingement. Multilevel severe neural foraminal narrowing as detailed above. The report will be called/faxed according to standard departmental protocol. Electronically signed by: Ike Velez M.D. 08/26/2017 11:43 AM Dictated Date/Time: 08/26/2017 11:34 AM
== END | disposition home or self-care (01) ==
LOC: C.MRI 10:28
PROVIDERS: ATTEND Family Medicine
DX: M50.00 Cervical disc disorder with myelopathy, unspecified cervical region (principal); M50.31 Other cervical disc degeneration, high cervical region; M50.323 Other cervical disc degeneration at C6-C7 level; M48.02 Spinal stenosis, cervical region

== ENCOUNTER → 2017-09-09 | Outpatient (CLI) | payer OTHER ==
--- NOTE | 2017-09-09 12:25 | DIAGNOSTIC IMAGING REPORT ---
LUMBAR SPINE W/O CONTRAST HISTORY: Pain. Neuropathy. LUMBAR DISC DISEASE W/RADICULOPATHY TECHNIQUE: Multiplanar multisequence MRI of the lumbar spine was performed without the use of contrast. COMPARISON: None. FINDINGS: For the purpose of the report the L5-S1 disc space will be located on axial image 26 of 30. Severe degenerative disc change throughout the entire lumbar region. Minimal reactive edema of the vertebral endplates presumably on a degenerative basis. No evidence for compression deformity. L1-L2: Mild broad-based disc bulge. Minimal impact anterior thecal sac. Neuroforamina are patent bilaterally. L2-L3: Broad-based disc herniation. Hypertrophic change posterior elements and facets. Moderate multifactorial spinal stenosis. Mild narrowing of the neuroforamina bilaterally at osteophytic bases. L3-L4: Mild multifactorial spinal stenosis. Mild broad-based disc herniation. Moderate hypertrophic changes of posterior facets. Moderate to rather significant narrowing of the neuroforamina bilaterally. L4-L5: Significant to severe multifactorial spinal stenosis. Broad-based disc herniation with a significant left lateral component. Severe narrowing left neural foramina with significant narrowing right neuroforamina. L5-S1: Severe multifactorial narrowing of spinal canal. Broad-based disc herniation. Severe hypertrophic change posterior elements and ligamentum flavum. Severe narrowing of the neuroforamina bilaterally. IMPRESSION: 1. Findings consistent with severe degenerative disc change throughout the entire lumbar spine with multilevel multifactorial spinal stenosis. 2. This is most severe at L5-S1 where there is severe spinal stenosis as well as severe narrowing of the neuroforamina bilaterally. 3. Significant but somewhat less prominent findings are seen at L4-L5 although there is severe narrowing of the left neural foramina. 3. Moderate multifactorial spinal stenosis L3-L4 and L2-L3 combined with mild/moderate narrowing of the neuroforamina bilaterally. 4. Mild disc bulge L1-L2. The above report was generated using voice recognition software. It may contain grammatical, syntax or spelling errors. Electronically signed by: Jomar Staley M.D. 09/09/2017 12:24 PM Dictated Date/Time: 09/09/2017 12:19 PM
== END | disposition home or self-care (01) ==
LOC: C.MRI 10:56
PROVIDERS: ATTEND Family Medicine
DX: M51.16 Intervertebral disc disorders with radiculopathy, lumbar region (principal); M51.36 Other intervertebral disc degeneration, lumbar region; M51.37 Other intervertebral disc degeneration, lumbosacral region; M48.061 Spinal stenosis, lumbar region without neurogenic claudication; M48.07 Spinal stenosis, lumbosacral region

== ENCOUNTER 2019-11-11 06:37 | Observation (INO) ==
--- NOTE | 2019-10-20 09:09 | History & Physical Report ---
Date of Service October 20, 2019 Assessment & Plan (1) Rheumatoid arthritis involving right knee: We will proceed with a right total knee arthroplasty. Postoperatively he will be placed on aspirin for DVT prophylaxis and kept overnight in the hospital for postoperative medical management. He plans to use energy physical therapy upon discharge. Orlando is an high risk for knee replacement surgery due to his cardiac history, his obesity, his chronic steroid use, and his chronic narcotic use. Present on Admission?: Yes History of Present Illness Chief Complaint: Rheumatoid arthritis of the right knee Primary Care Provider: Giuseppe Romero MD Orlando is a pleasant 59-year-old male who is been dealing with chronic increasing right knee pain. He does have rheumatoid arthritis and is on prednisone treatment for that. He also has severe back pain and is on morphine for that. Unfortunately he has failed extensive conservative treatment for his right knee pain. X-rays and clinical examination have been diagnostic for rheumatoid arthritis of the right knee. After failing conservative treatment, he has elected to proceed with a right total knee arthroplasty. Allergies Allergy/AdvReac Type Severity Reaction Status Date / Time No Known Allergies Allergy Verified 10/11/19 11:46 Home Medications Home Medications Medication Instructions Recorded Confirmed Type amlodipine 5 mg PO QAM 03/24/18 10/11/19 History buspirone 15 mg PO TID 03/24/18 10/11/19 History doxazosin 8 mg PO QAM 03/24/18 10/11/19 History gabapentin 100 mg PO QID 03/24/18 10/11/19 History labetalol 100 mg PO BID 03/24/18 10/11/19 History leflunomide [Arava] 10 mg PO QAM 03/24/18 10/11/19 History morphine 15 mg PO Q12H PRN 03/24/18 10/11/19 History morphine 30 mg PO Q12H 03/24/18 10/11/19 History omeprazole 20 mg PO BID 03/24/18 10/11/19 History prednisone 8 mg PO QAM 03/24/18 10/11/19 History cyanocobalamin (vitamin B-12) 1,000 mcg PO QAM 07/21/19 10/11/19 History Past Med/Surg History Medical History Arthritis of knee Cardiomyopathy EF 35-40% on 06/2018 echo Chronic back pain TO BILAT LEGS GERD (gastroesophageal reflux disease) CONTROLLED Hypertension LABILE Kidney stones LBBB (left bundle branch block) "CHRONIC" PER CARDIO Obesity Osteoarthritis Rheumatoid arthritis SOB (shortness of breath) on exertion Spinal stenosis of lumbar region at multiple levels X 2 Surgical History History of colonoscopy History of lithotripsy History of lumbar fusion X 2 Family History Mother Family hx of colon cancer Social History Preferred Language: Argentine Communication Ability: Effective Visual Impairment: No Limitations Cotton Factor Required: No Beliefs That Will Affect Care: None Current Living Situation: Significant Other Feels Safe at Home: Yes Smoking Status: Never smoker Second Hand Exposure: No ; Hx Alcohol Use: No Hx Substance Use: No Review of Systems Review of Systems: All systems reviewed & are unremarkable except as noted in HPI & below Physical Exam Constitutional: WD/WN, vitals as above Eyes: PERRL, conjunctivae normal, anicteric sclerae ENMT: external ear and nose normal, oropharynx normal Neck: trachea midline, no thyromegaly Respiratory: normal respiratory effort Cardiovascular: RRR, no murmur, no edema Gastrointestinal (Abdomen): normal bowel sounds, soft, nontender, no hepatosplenomegaly Musculoskeletal: On physical examination of the right knee there is a trace effusion. There is near full range of motion and no evidence of instability. There is significant tenderness palpation along the medial and lateral joint lines and over the distal femoral condyles. Psychiatric: A+Ox3, euthymic affect Results & Data Results & Data ([facility]) Diagnostic Findings Radiographs of the right knee demonstrate advanced osteoarthritis with joint space narrowing osteophyte formation and [id number] articulation. PG Care Time/CCT Total # of Minutes Spent Total Time Spent with Patient: Total time spent is greater than 50% in coordination of care (as documented) at patient's floor/unit and/or counseling patient: Coding Level of Care Code 96451 Initial Inpt Care Lvl 3 Diagnoses Rheumatoid arthritis involving right knee M06.9
--- NOTE | 2019-10-20 14:31 | Anesthesiology Consultation ---
Date of Service October 20, 2019 Assessment & Plan (1) Encounter for pre-operative examination: Chart Review Chart Review: Pending: Refer to Additional Notes / Consult section (cardio clearance/possibly needs DOS preop labs/ketamine protocol needs coordinated ) and Patient NOT seen in Pre Admission Testing Pt's preop labs are out of date- will need CBC and PRP done preoperatively- if not done prior to surgery- will order AM of surgery. - Pt was seen in PAT 07/27/19, at that time he had increased SOB and CM with EF 35-40% on 06/2018 ECHO. Pt was scheduled to see cardio 08/09 for clearance but appt cancelled due to Covid 19. Pt needs cardio clearance before proceeding with surgery. Surgeon's office informed that 10/24/19 surgery needs postponed until patient is cleared by cardiology. Pending nursing assessment 10/20/2019, pt traveled to [facility] to [facility] (wore mask and social distanced). No known contact with PUIs or Covid positive people. No current Covid related symptoms. Covid testing ordered by surgeon's office 10/19/19- results pending Ketamine Protocol: Patient is on 90mg morphine daily (30mg BID and taking PRN 30mg daily for breakthrough pain). Will need ICU bed post-op and OR will need made aware once patient's surgery is rescheduled. History Surgery Operation Date: 10/24/19 10:55 Proposed Procedures p Right Total Knee Arthroplasty - Everton Cary, DO Height/Weight Height: 5 ft 4 in Weight: 88.451 kg Allergies Allergy/AdvReac Type Severity Reaction Status Date / Time No Known Allergies Allergy Verified 10/20/19 11:59 Medications Home Medications Medication Instructions Recorded Confirmed Last Taken amlodipine 5 mg PO QAM 03/24/18 10/20/19 04/05/18 06:30 buspirone 15 mg PO TID 03/24/18 10/20/19 04/05/18 06:30 doxazosin 8 mg PO QAM 03/24/18 10/20/19 04/05/18 06:30 gabapentin 100 mg PO QID 03/24/18 10/20/19 04/05/18 06:30 labetalol 100 mg PO BID 03/24/18 10/20/19 04/05/18 06:30 morphine 15 mg PO Q12H PRN 03/24/18 10/20/19 04/04/18 08:00 morphine 30 mg PO BID 03/24/18 10/20/19 04/05/18 06:30 omeprazole 20 mg PO BID 03/24/18 10/20/19 04/05/18 06:30 prednisone 8 mg PO QAM 03/24/18 10/20/19 04/05/18 06:30 cyanocobalamin (vitamin B-12) 1,000 mcg PO QAM 07/21/19 10/20/19 Unknown sacubitril-valsartan [Entresto] 1 tab PO BID 10/20/19 10/20/19 Unknown Past Medical History Medical History Arthritis of knee Cardiomyopathy EF 35-40% on 06/2018 echo Chronic back pain TO BILAT LEGS GERD (gastroesophageal reflux disease) CONTROLLED Hypertension LABILE Kidney stones LBBB (left bundle branch block) "CHRONIC" PER CARDIO Obesity Osteoarthritis Rheumatoid arthritis SOB (shortness of breath) on exertion Spinal stenosis of lumbar region at multiple levels Past Family History Family History Mother Family hx of colon cancer Past Surgical History Surgical History History of colonoscopy History of lithotripsy History of lumbar fusion X 2 WITH HARDWARE Social History Smoking Status: Never smoker Do You Dip or Chew Tobacco: No Hx Alcohol Use: No Hx Substance Use: No substance use type: does not use Testing Electrocardiogram Date: 07/27/19 Findings: + NSR @ (66) Rightward axis. LBBB. Compared with EKG from 04/05/18, QRS axis shifted right, T wave inversion less evident in inferior leads. Chest X-Ray Date: 07/27/19 IMPRESSION: 1. Chronic elevation of the right hemidiaphragm with limited aeration of the right lung base, unchanged from prior. 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 2. Cardiomegaly without evidence of volume overload or congestive change. Echocardiogram Date: 07/20/18 EF: 35-40% Valvular Disease: + no significant valvular disease Mild concentric LVH. LV systolic function is mild to moderately reduced. Grade 1 diastolic dysfunction. Regional wall motion abnormalities as specified--the basal inferior and posterior segments are severely hypokinetic. Septal motion is consistent with no conduction abnormality. There is an element of apical anterolateral hypokinesis. Compared to an echo from 2016, there does not appear to be significant change. Stress Test Date: 07/17/17 Type: nuclear (LEXISCAN) No significant ischemic changes. Normal wall motion. EF 49%. Constant chest pain (did not worsen with Lexiscan). Indeterminate Lexiscan EKG due to LBBB.
--- NOTE | 2019-11-10 14:10 | History & Physical Report ---
Date of Service November 10, 2019 Assessment & Plan (1) Rheumatoid arthritis involving right knee: We will proceed with a right total knee arthroplasty. Postoperatively he will be started on aspirin for DVT prophylaxis and transferred to the general orthopedic floors. He will be kept overnight for postoperative medical management. He plans to use energy physical therapy upon discharge. Pain management has been consulted on him preoperatively to help manage the morphine. Aditya is a low risk for joint replacement surgery and does not have any major comorbid conditions. Present on Admission?: Yes History of Present Illness Chief Complaint: Rheumatoid arthritis of the right knee Primary Care Provider: Giuseppe Romero MD Aditya is a pleasant 59-year-old male who has been dealing with chronic increasing right knee pain. His knee has been bothering him for over a year. X-rays and clinical examination have been diagnostic for advanced rheumatoid arthritis of his right knee. He is currently on morphine for his low back pain and he also is on prednisone 8 mg daily for rheumatoid arthritis. He has failed conservative treatment and has elected proceed with a right total knee arthroplasty. Allergies Allergy/AdvReac Type Severity Reaction Status Date / Time No Known Drug Allergies Allergy Verified 11/04/19 10:56 Home Medications Home Medications Medication Instructions Recorded Confirmed Type amlodipine 5 mg PO QAM 03/24/18 11/04/19 History buspirone 15 mg PO TID 03/24/18 11/04/19 History doxazosin 8 mg PO QAM 03/24/18 11/04/19 History gabapentin 100 mg PO QID 03/24/18 11/04/19 History morphine 15 mg PO Q12H PRN 03/24/18 11/04/19 History morphine 30 mg PO BID 03/24/18 11/04/19 History omeprazole 20 mg PO BID 03/24/18 11/04/19 History prednisone 8 mg PO QAM 03/24/18 11/04/19 History cyanocobalamin (vitamin B-12) 1,000 mcg PO QAM 07/21/19 11/04/19 History sacubitril-valsartan [Entresto] 1 tab PO BID 10/20/19 11/04/19 History labetalol 100 mg tablet 50 mg PO BID tab 11/04/19 11/04/19 History Past Med/Surg History Medical History Arthritis of knee Cardiomyopathy EF 35-40% on 06/2018 echo Chronic back pain TO BILAT LEGS GERD (gastroesophageal reflux disease) CONTROLLED Hypertension LABILE Kidney stones LBBB (left bundle branch block) "CHRONIC" PER CARDIO Obesity Osteoarthritis Rheumatoid arthritis SOB (shortness of breath) on exertion Spinal stenosis of lumbar region at multiple levels Surgical History History of colonoscopy History of lithotripsy History of lumbar fusion X 2 WITH HARDWARE Family History Mother Family hx of colon cancer Social History Preferred Language: Lithuanian Communication Ability: Effective Visual Impairment: No Limitations Hotel Maid Required: No Beliefs That Will Affect Care: None Current Living Situation: Significant Other Other Information That Helps Us Care for You: No Feels Safe at Home: Yes Safety Concerns: Feels Safe At This Time Smoking Status: Never smoker Do You Dip or Chew Tobacco: No ; Second Hand Exposure: No ; Tobacco Cessation Education Requested by Patient: No Hx Alcohol Use: No Hx Substance Use: No Review of Systems Review of Systems: All systems reviewed & are unremarkable except as noted in HPI & below Physical Exam Constitutional: WD/WN, vitals as above Eyes: PERRL, conjunctivae normal, anicteric sclerae ENMT: external ear and nose normal, oropharynx normal Neck: trachea midline, no thyromegaly Respiratory: normal respiratory effort Cardiovascular: RRR, no murmur, no edema Gastrointestinal (Abdomen): normal bowel sounds, soft, nontender, no hepatosplenomegaly Musculoskeletal: On physical examination of the right knee there is a trace effusion. There is near full range of motion and no evidence of instability. There is significant tenderness palpation along the medial and lateral joint lines and over the distal femoral condyles. Psychiatric: A+Ox3, euthymic affect Results & Data Results & Data ([facility]) Diagnostic Findings Radiographs of the right knee demonstrate advanced osteoarthritis with joint space narrowing osteophyte formation and [id number] articulation. PG Care Time/CCT Total # of Minutes Spent Total Time Spent with Patient: Total time spent is greater than 50% in coordination of care (as documented) at patient's floor/unit and/or counseling patient: Coding Level of Care Code 27116 Initial Inpt Care Lvl 3 Diagnoses Rheumatoid arthritis involving right knee M06.9
[~2019-11-11 06:37] MED LIST changes: +ACETAMINOPHEN 500 MG TAB PO SCH; -BSP15 PO; +BUPIVACAINE 0.5 % 5 MG/1 ML PF 10ML VIAL ONE; +BUPIVACAINE/EPINEPHRINE 0.25% 1:200,000 30 ML VIAL ONE; +CEFAZOLIN 2000MG 2,000 MG/15 ML SYR IV SCH; -CELE1CAP30 PO; -DOXA-10 PO; +FAMOTIDINE 20 MG TAB PO SCH; -GABA-112 PO; +GABAPENTIN 600 MG DOSE PO SCH; +KETAMINE / NSS 500 MG/500 ML BAG IV SCH; -LBT/100 PO; -LEFL20TA PO; +LR 500ML BOLUS, THEN 15ML/HR IV SCH; +LR 60ML/HR IV SCH; -MORP1TAB12 PO; -MORP30TA PO; -NRV5 PO; -POTA10TA32 PO; -PRED-301 PO; -PRLSR20 PO; +ROPIVACAINE 0.5% HCL/PF 150 MG, BUPIVACAINE 0.5% MPF 30 ML, EPINEPHrine 30MG/30ML (OR U... INSTIL SCH; +TRANEXAMIC ACID 1,000 MG **IV Intra-op IV SCH; +TRANEXAMIC ACID 1,000 MG **IV Pre-op IV SCH; +dexAMETHasone 4 MG TAB PO SCH
--- NOTE | 2019-11-11 06:47 | History & Physical Bridge Note ---
Date of Service November 11, 2019 History & Physical Bridge Note I have examined the patient, reviewed the History & Physical and in the interval since the performance of the History & Physical I have noted the following changes of clinical significance: no changes noted
[2019-11-11] MEDS ORDERED: MIDAZOLAM HCL 1 MG/ML 2ML VIAL ONE ×2 (07:27→09:29)
[2019-11-11] MEDS ORDERED: ACETAMINOPHEN 500 MG TAB ONE (07:48)
[2019-11-11] MEDS ORDERED: dexAMETHasone 4 MG TAB PO ONE (07:48)
[2019-11-11] MEDS ORDERED: CEFAZOLIN 2,000 MG/15 ML IV PUSH IV ONE (07:49)
[2019-11-11] MEDS ORDERED: FAMOTIDINE 20 MG TAB ONE (07:49)
[2019-11-11] MEDS ORDERED: TRANEXAMIC ACID / 0.7% NACL 1000MG/100ML BAG IV ONE (07:50)
[2019-11-11] MEDS ORDERED: GABAPENTIN 300 MG CAP ONE (07:50)
[2019-11-11] MEDS ORDERED: HYDROmorphone INJ 2 MG/ML SYR/VIAL IV PRN (08:12)
[2019-11-11] MEDS ORDERED: ePHEDrine sulfate 50 MG/ML AMP IV PRN (08:12)
[2019-11-11] MEDS ORDERED: fentaNYL citrate 100 MCG/2 ML VIAL IV PRN (08:12)
[2019-11-11] MEDS ORDERED: ATROPINE SULFATE 0.1 MG/ML 10ML SYR IV PRN (08:12)
[2019-11-11] MEDS ORDERED: ONDANSETRON INJ 2 MG/ML 2 ML VIAL IV PRN ×2 (08:12→12:46)
[2019-11-11] MEDS ORDERED: ePHEDrine sulfate 50 MG/ML SYR ONE (08:56)
[2019-11-11] MEDS ORDERED: PHENYLEPHRINE 100MCG/ML 5ML SYR ONE (09:28)
--- NOTE | 2019-11-11 10:07 | Operative Report ---
PG Post Operative Report Pre & Post Diagnosis Operation Date: 11/11/19 08:40 Pre-Op Diagnosis: Right Knee Degenerative Joint Disease Post-Op Diagnosis: Right Knee Degenerative Joint Disease I identified the patient and participated in the time-out.: Yes Procedure Operation Date: 11/11/19 08:40 Actual Procedures p Right Total Knee Arthroplasty(Right) - Everton Cary DO Surgeon Everton Cary DO Tank Builder Supervisor Everton Oh PAC Estimated Blood Loss 20 Findings Consistent with Post-Op Diagnosis Specimens Right femoral and tibial bone Complications none Disposition Disposition: Recovery Room Indications Aditya is a pleasant 59-year-old male who presented my office with complaints of chronic increasing right knee pain. X-rays and clinical examination were diagnostic for primary osteoarthritis of the right knee. After failing conservative treatment, he elected to proceed with a right total knee arthroplasty. Description of Procedure Implants used: I used a Brandon Persona total knee arthroplasty system with a size 11 standard femur, G tibia, 11 medial congruent patella, and a size 32 polyethylene bearing. All components were cemented in place with Palacos G cement. Aditya arrived [facility] for the above procedure. He was seen in the preoperative holding area and the operative extremity was identified and signed. He was given a preoperative antibiotic, TXA, a spinal anesthetic and an adductor nerve block. He was taken back to the operating room and laid on the table in supine position. He was given basic sedation. The operative knee was then prepped and draped in sterile fashion. A timeout was done, and the patient and the operative extremity was properly identified. A midline incision was made directly over the patella. Dissection was taken down to the extensor mechanism. A subvastus arthrotomy was used. The medial retinaculum was released and the fat pad was mostly excised. The knee was flexed and the ACL, PCL, and meniscus were removed. A drill was sent down the center of the femoral canal followed by an intramedullary yeyo. Off that yeyo a distal femoral cutting block was placed. 9 mm was resected off the distal femur at 5 of valgus. A posterior referencing AP sizing guide was then placed on the distal femur. The femur measured to be a size 11. 2 drill holes were placed in 3 of external rotation. A 4-in-1 cutting block was then impacted into place. Anterior, posterior, and chamfer cuts were then made. The proximal tibia was then exposed. An external tibial alignment guide was placed. A tibial cut guide was then anchored in place to resect 2 mm off the low medial side. The proximal tibia was then resected. The tibia measured to be a size G. The tibial plate was then placed in the appropriate rotation and the tibia was drilled and punched. The posterior aspect of the knee was then opened up and any additional meniscus fragments and osteophytes were removed. Trial components were then placed. I used a size 11 polyethylene insert. The knee was brought through a full range of motion and felt to be stable. The patella was then everted and 8 mm was resected off the posterior aspect of the patella. The patella measured to be a size 32. 3 peg holes were then drilled. A trial patella was placed. The knee was once again brought through a full range of motion and felt to be stable. Trial components were then removed. The surrounding soft tissues were injected with 100 cc of an orthopedic pain control cocktail. All components were then cemented into place with Palacos G cement. The final polyethylene insert was then snapped into place and the anterior bar was locked. Once cement was dry the tourniquet was deflated. Hemostasis was obtained. A dilute betadyne lavage was then done for 3 minutes. The joint was then irrigated with normal saline solution. The subvastus arthrotomy was then closed with #1 Vicryl suture. The skin was closed with 2-0 Vicryl, 3-0V lock suture, and travis. A soft compressive dressing was placed. He was then transferred to a hospital bed and taken to the postanesthesia care unit in stable condition. He tolerated the procedure well. Everton Oh PA-C, was present for the entire procedure. He was critical for patient positioning, prepping, draping, retraction exposure, wound closure and application of sterile dressing. I attest to the content of the Intraoperative Record and any orders documented therein. Any exceptions are noted below.
[2019-11-11] MEDS ORDERED: ONDANSETRON INJ 2 MG/ML 2 ML VIAL ONE (10:19)
[2019-11-11] MEDS ORDERED: MIDAZOLAM HCL 1 MG/ML 2ML VIAL IV PRN (10:54)
[2019-11-11] MEDS ORDERED: ONDANSETRON 4 MG OD TAB PO PRN (10:54)
[2019-11-11] MEDS ORDERED: STAT IV Infusion **Titration per Protocol STA (10:54)
[2019-11-11] MEDS ORDERED: cloNIDine HCL 0.1 MG TAB PO PRN (10:54)
[2019-11-11] MEDS ORDERED: KETAMINE HCL / NSS 500 MG/500 ML BAG IV SCH (11:00)
--- NOTE | 2019-11-11 11:02 | XRay Report ---
XR knee RT 1 or 2V routine CLINICAL HISTORY: Postoperative evaluation. COMPARISON: Right knee radiographs April 19, 2019. FINDINGS: Alignment of the total right knee arthroplasty is anatomic. No periprosthetic fracture or unexpected radiopaque foreign body. There are skin travis. IMPRESSION: Expected findings following total right knee arthroplasty. ACT 112: Negative or not required by law. Electronically signed by: Alfredo Bolton M.D. 11/11/2019 11:00 AM
--- NOTE | 2019-11-11 11:06 | Anesthesiology Progress Note ---
Date of Service November 11, 2019 Anesthesia Post Procedure Vital Signs Vital Signs: Temp Pulse Pulse Resp BP Pulse Ox 11/11/19 10:31 36.3 C L 79 12 95/54 L 99 11/11/19 07:13 36.7 C 63 16 135/75 96 Transfer of Care Handoff Completed per policy Notes Mental Status: alert / awake / arousable and participated in evaluation Patient Amnestic to Procedure: Yes Nausea / Vomiting: adequately controlled Pain: adequately controlled Airway Patency, RR, SpO2: stable & adequate BP & HR: stable & adequate Hydration State: stable & adequate Anesthetic Complications: no major complications apparent and Pt Satisfied with anesthetic care
[2019-11-11] MEDS ORDERED: MAGNESIUM HYDROXIDE SUSP 30 ML UDC PO PRN (12:46)
[2019-11-11] MEDS ORDERED: MORPHINE 15 MG PO PRN (12:46)
[2019-11-11] MEDS ORDERED: SODIUM CHLORIDE 0.9% 1000ML 1,000 ML IV SCH (12:46)
[2019-11-11] MEDS ORDERED: bisacodyL 10 MG SUPP PR PRN (12:46)
[2019-11-11] MEDS ORDERED: NALOXONE HCL 0.4 MG/1 ML VIAL/CARP IV PRN (12:46)
[2019-11-11] MEDS ORDERED: METOCLOPRAMIDE HCL INJ 5 MG/ML 2 ML VIAL IV PRN (12:46)
--- NOTE | 2019-11-11 13:24 | Critical Care Consultation ---
Date of Consultation November 11, 2019 Assessment & Plan (1) Rheumatoid arthritis involving right knee: 2D echo 11/04/2019: EF 60-65%, mild left atrium dilatation --Right-sided TKR In a patient with RA, patient also takes chronic opioid for his low back pain Currently in the ICU on ketamine drip for his postop pain Monitor end-tidal CO2 Pain management --Hypertension We will restart blood pressure medication later today --RA On chronic prednisone Patient is currently maintaining his blood pressure. If there is any drop in blood pressure will stress dosing with Solu-Medrol --History of cardiomyopathy Latest echo shows EF 60-65% Continue with home medications with holding parameters. --Prophylaxis VTE: IPC's, start chemical prophylaxis once cleared by surgeon GI: Pantoprazole Plan: Patient is currently on ketamine drip 0.1 mg/min which is the lowest dose. Is not in any acute pain right now. Patient is on Dilaudid for breakthrough pains. Patient usually takes 30 mg of morphine at around 5 AM in the morning and the second dose at around 4-6 PM. Will DC ketamine drip around 4 PM and give the patient his evening dose of 30 mg of morphine. We will continue with as needed Dilaudid for breakthrough pains on top of it. Once the patient is off the drip and his pain is controlled will think about transferring back to a medical floor. Case was discussed with Dr. Cary. I have personally spent 35 minutes of critical care time in the direct management of this patient. This is a life/limb threatening event. This includes time spent evaluating patient, direct bedside care, chart review, placing orders, interpretation of diagnostic studies, discussion with consultants, patient, and family members, as well as other required patient management activities. This time is exclusive of all separately billable procedures, and teaching time and separate from and in addition to any other critical care service time. Please note the above document was generated using voice recognition software. It may contain grammatical, syntax or spelling errors. (2) Osteoarthritis of right knee: History of Present Illness Attending Physician: Everton Cary DO History of Present Illness 59-year-old male with past medical history of rheumatoid arthritis on chronic 8 mg prednisone, hypertension, chronic low back pain on morphine from pain management and chronic right knee pain admitted today for right-sided total knee replacement. Patient is post OR status post right TKR. At the time of examination patient is doing okay. Denies any shortness of breath, no dizziness, no chest pain. He does complain of mild pain in the right knee which is it is tolerable. Complains of pain in the left foot which is reproducible on palpation. He is in the ICU as patient is on ketamine drip for pain. 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 Positive exposure to chemicals and fumes. Allergies Allergy/AdvReac Type Severity Reaction Status Date / Time No Known Drug Allergies Allergy Verified 11/11/19 07:05 Home Medications Home Medications Medication Instructions Recorded Confirmed Type amlodipine 5 mg PO QAM 03/24/18 11/11/19 History buspirone 15 mg PO TID 03/24/18 11/11/19 History doxazosin 8 mg PO QAM 03/24/18 11/11/19 History gabapentin 100 mg PO QID 03/24/18 11/11/19 History morphine 15 mg PO Q12H PRN 03/24/18 11/11/19 History morphine 30 mg PO BID 03/24/18 11/11/19 History omeprazole 20 mg PO BID 03/24/18 11/11/19 History prednisone 8 mg PO QAM 03/24/18 11/11/19 History cyanocobalamin (vitamin B-12) 1,000 mcg PO QAM 07/21/19 11/11/19 History sacubitril-valsartan [Entresto] 1 tab PO BID 10/20/19 11/11/19 History labetalol 100 mg tablet 50 mg PO BID tab 11/04/19 11/11/19 History Patient History Medical History Arthritis of knee Cardiomyopathy EF 35-40% on 06/2018 echo Chronic back pain TO BILAT LEGS GERD (gastroesophageal reflux disease) CONTROLLED Hypertension LABILE Kidney stones LBBB (left bundle branch block) "CHRONIC" PER CARDIO Obesity Osteoarthritis Rheumatoid arthritis SOB (shortness of breath) on exertion Spinal stenosis of lumbar region at multiple levels Surgical History History of colonoscopy History of lithotripsy History of lumbar fusion X 2 WITH HARDWARE Family History Mother Family hx of colon cancer Social History Preferred Language: Spanish Communication Ability: Effective Visual Impairment: No Limitations Fans Clerk Required: No Beliefs That Will Affect Care: None Current Living Situation: Significant Other Other Information That Helps Us Care for You: No Feels Safe at Home: Yes Safety Concerns: Feels Safe At This Time Smoking Status: Never smoker Do You Dip or Chew Tobacco: No ; Second Hand Exposure: No ; Tobacco Cessation Education Requested by Patient: No Hx Alcohol Use: No Hx Substance Use: No Review of Systems Review of Systems: All systems reviewed & are unremarkable except as noted in HPI & below Physical Exam Physical Exam: Constitutional: No acute distress HEENT: EOMI, PERRLA Respiratory system: Good air entry bilaterally, no wheeze, no rhonchi, no crackles CVS: S1-S2 positive, no murmurs or gallops Abdomen: Soft, nontender, nondistended, positive bowel sounds x4 Extremities: +2 pulses bilaterally radialis/ dorsalis pedis, no cyanosis, no edema, right knee brace, left plantar pain, no rubor, no calor Neuro: Awake alert oriented x3 Psych: Normal mood and affect G/U: No Rodriguez Skin: no rashes, warm and dry Lymphatic: no cervical or axillary lymphadenopathy Results & Data Results & Data ([facility]) Vital Signs (Past 12 Hours) Vital Signs Temp Pulse Pulse Resp BP Pulse Ox 11/11/19 12:05 36.3 C L 76 16 98/64 L 98 11/11/19 11:50 67 12 120/69 99 11/11/19 11:35 67 10 L 111/56 L 98 11/11/19 11:20 36.1 C L 65 12 102/66 99 11/11/19 11:10 65 17 96/57 L 97 11/11/19 11:00 75 15 105/70 98 11/11/19 10:50 68 12 109/66 97 11/11/19 10:40 73 13 104/61 99 11/11/19 10:31 36.3 C L 79 12 95/54 L 99 11/11/19 07:13 36.7 C 63 16 135/75 96 Coding Level of Care Code Critical Care 1st 30-74 mins Diagnoses Rheumatoid arthritis involving right knee M06.9 Osteoarthritis of right knee M17.11 Time Spent (min) 35
[2019-11-11] MEDS: BusPIRone 15 MG TAB PO SCH ×2 (15:07→20:17)
[2019-11-11] MEDS: ACETAMINOPHEN 500 MG TAB PO SCH ×2 (15:09→23:54)
[2019-11-11] MEDS: GABAPENTIN 100 MG CAP PO SCH ×3 (15:09→20:16)
[2019-11-11] MEDS: HYDROmorphone INJ 0.5 MG/0.5 ML SYR IV PRN ×2 (15:11→21:11)
[2019-11-11] MEDS: MoRPHine SULFATE CR 15 MG TABCR PO SCH (17:29)
[2019-11-11] MEDS: CEFAZOLIN 2000MG 2,000 MG/15 ML SYR IV SCH ×2 (17:29→23:54)
[2019-11-11] MEDS: SENNA 8.6 MG TAB PO SCH (20:16)
[2019-11-11] MEDS: SACUBITRIL-VALSARTAN 97-103 MG TAB PO SCH (20:16)
[2019-11-11] MEDS: PANTOprazole 40 MG TAB PO SCH (20:17)
[2019-11-11] MEDS: ASPIRIN 81 MG ECTAB PO SCH (20:17)
[2019-11-11] MEDS: DOCUSATE SODIUM 100 MG CAP PO SCH (20:17)
[2019-11-11] MEDS: LABETALOL HCL 100 MG TAB PO SCH (20:18)
[2019-11-11] MEDS ORDERED: MORPHINE 30 MG PO SCH (21:00)
[2019-11-12] MEDS: HYDROmorphone INJ 0.5 MG/0.5 ML SYR IV PRN ×2 (02:51→17:29)
[2019-11-12 04:42] LABS: Hematocrit (blood only) 29.7 % (42-52); Hemoglobin 9.7 g/dL (14.0-18.0); Mean Corpuscular Hemoglobin 30.8 pg (25-34); Mean Corpuscular Hgb Conc 32.7 g/dL (32-36); Mean Corpuscular Volume 94.3 fL (80-100); Mean Platelet Volume 9.7 fL (7.4-10.4); Platelet Count 241 K/uL (130-400); RDW Coefficient of Variation 13.2 % (11.5-14.5); RDW Standard Deviation 45.1 fL (36.4-46.3); Red Blood Count 3.15 M/uL (4.7-6.1)
[2019-11-12 05:12] LABS: BUN Creatinine Ratio 21.8 (10-20); Calcium 8.4 mg/dl (8.5-10.1); Creatinine Clr Calc Pharmacy 88.3 ml/min; Est GFR (African American) 108.5; Est GFR (Non-African American) 93.6; Magnesium 2.3 mg/dl (1.8-2.4); Phosphorus 4.4 mg/dl (2.5-4.9); Potassium 4.5 mmol/L (3.5-5.1)
[2019-11-12] MEDS: ACETAMINOPHEN 500 MG TAB PO SCH ×3 (05:54→21:16)
[2019-11-12] MEDS: MoRPHine SULFATE CR 15 MG TABCR PO SCH ×2 (05:55→15:38)
--- NOTE | 2019-11-12 07:25 | Orthopedic Progress Note ---
Date of Service November 12, 2019 Assessment & Plan (1) History of total right knee replacement: Overall he is doing fairly well. Is not having too much pain in the right knee. I talked to the nurses about reinforcing the dressing. I doing his leg out in full extension. He will need to be up and ambulating with physical therapy today as well. I recommend that he is transferred to the general orthopedic floors. We will do physical therapy and pain control today. I plan to discharge him to home tomorrow. He is on aspirin for DVT prophylaxis. Present on Admission?: Yes Subjective Orlando was seen and examined at bedside this morning. Overall he is doing fairly well. He has not been out of bed yet. His pain is well controlled. The ketamine drip was tried stop last night and he has been back on his baseline oral morphine. He has some pain on the plantar aspect of his left foot. Otherwise, he has no complaints. Physical Exam Musculoskeletal: On physical examination of the right knee, the dressing has bled through a little bit. His MIRIAN hose stockings is in place. He has active dorsiflexion plantarflexion of his right ankle. Results & Data ([facility]) Vital Signs (Past 12 Hours) Vital Signs Temp Pulse Pulse Resp BP BP Pulse Ox 11/12/19 06:00 80 14 121/71 96 11/12/19 05:00 76 13 125/58 L 96 11/12/19 04:00 36.8 C 74 14 106/65 95 11/12/19 03:00 77 14 131/70 95 11/12/19 02:00 78 12 105/59 L 92 11/12/19 01:00 78 12 112/65 93 11/12/19 00:00 37.4 C 85 15 129/76 96 11/11/19 23:00 73 13 118/59 L 92 11/11/19 22:00 77 14 112/64 92 11/11/19 21:00 76 13 121/67 95 11/11/19 20:00 36.9 C 74 14 132/68 94 Laboratory Results H & H 11/12/19 Range/Units 04:11 Hgb 9.7 L (14.0-18.0) g/dL Hct 29.7 L (42-52) % Diagnostic Findings Postoperative x-rays of the right knee show the prosthesis to be in anatomic alignment without any evidence of fracture, dislocation, or loosening. PG Care Time/CCT Total # of Minutes Spent Total Time Spent with Patient: Total time spent is greater than 50% in coordination of care (as documented) at patient's floor/unit and/or counseling patient: Coding Level of Care Code None Diagnoses History of total right knee replacement Z96.651
[2019-11-12] MEDS: LABETALOL HCL 100 MG TAB PO SCH ×2 (07:58→21:18)
[2019-11-12] MEDS: ASPIRIN 81 MG ECTAB PO SCH ×2 (07:59→21:18)
[2019-11-12] MEDS: DOCUSATE SODIUM 100 MG CAP PO SCH ×2 (08:00→21:17)
[2019-11-12] MEDS: BusPIRone 15 MG TAB PO SCH ×3 (08:01→21:18)
[2019-11-12] MEDS: PANTOprazole 40 MG TAB PO SCH ×2 (08:01→21:17)
[2019-11-12] MEDS: GABAPENTIN 100 MG CAP PO SCH ×4 (08:01→21:16)
[2019-11-12] MEDS: SACUBITRIL-VALSARTAN 97-103 MG TAB PO SCH ×2 (08:02→21:19)
[2019-11-12] MEDS: AMLODIPINE BESYLATE 5 MG TAB PO SCH (08:02)
[2019-11-12] MEDS: predniSONE 10 MG TABLET PO SCH (08:03)
[2019-11-12] MEDS: MULTIVITAMIN TAB PO SCH (08:04)
[2019-11-12] MEDS: predniSONE 1 MG TAB PO SCH (08:04)
[2019-11-12] MEDS: DOXAZosin MESYLATE 4 MG TAB PO SCH (08:05)
--- NOTE | 2019-11-12 08:59 | Critical Care Progress Note ---
Date of Service November 12, 2019 Assessment & Plan (1) Rheumatoid arthritis involving right knee: 2D echo 11/04/2019: EF 60-65%, mild left atrium dilatation --Right-sided TKR 11/11/2019 In a patient with RA, patient also takes chronic opioid for his low back pain Status post ketamine drip Pain management --Hypertension Continue with home blood pressure medication with holding parameters --RA On chronic prednisone Patient is currently maintaining his blood pressure. If there is any drop in blood pressure will stress dose with Solu-Medrol --History of cardiomyopathy Latest echo shows EF 60-65% Continue with home medications with holding parameters. --Prophylaxis VTE: IPC's, start chemical prophylaxis once cleared by surgeon GI: Pantoprazole Plan: Patient has been off ketamine drip since yesterday 4 PM. Patient's pain is controlled on p.o. medication with PRN Dilaudid IV. Hemodynamically patient is stable. Plan to transfer the patient out of the ICU. I have personally spent 33 minutes of critical care time in the direct man agement of this patient. This is a life/limb threatening event. This includes time spent evaluating patient, direct bedside care, chart review, placing orders, interpretation of diagnostic studies, discussion with consultants, patient, and family members, as well as other required patient management activities. This time is exclusive of all separately billable procedures, and teaching time and separate from and in addition to any other critical care service time. Please note the above document was generated using voice recognition software. It may contain grammatical, syntax or spelling errors. (2) Osteoarthritis of right knee: Admission and Anticipated Discharge Date Admission Date: November 11, 2019 Subjective Patient seen and examined at bedside. No acute distress, no adverse events overnight. Patient was complaining of some pain in the right lower extremity he got Dilaud id as needed for the pain. At the time of examination is not in any acute distress. Saying the pain is much more controlled. The main complaint he has is pain in the left foot right at the base of the first toe. Patient is able to move all the toes without any difficulty. No chest pain, no shortness of breath, no headache, no nausea, no vomiting. Good appetite Review of Systems Review of Systems: All systems reviewed & are unremarkable except as noted in HPI & below Physical Exam Physical Exam: Constitutional: No acute distress HEENT: EOMI, PERRLA Respiratory system: Good air entry bilaterally, no wheeze, no rhonchi, no crackles CVS: S1-S2 positive, no murmurs or gallops Abdomen: Soft, nontender, nondistended, positive bowel sounds x4 Extremities: +2 pulses bilaterally radialis/ dorsalis pedis, no cyanosis, no edema, right knee brace, left left plantar pain at the base of the first toe. There is no crepitus, no rubor, no calor appreciated. Neuro: Awake alert oriented x3 Psych: Normal mood and affect G/U: No Rodriguez Skin: no rashes, warm and dry Lymphatic: no cervical or axillary lymphadenopathy Results & Data Results & Data ([facility]) Vital Signs (Past 12 Hours) Vital Signs Temp Pulse Pulse Resp BP BP Pulse Ox 11/12/19 08:01 80 16 94 11/12/19 08:00 36.8 C 79 20 129/56 L 97 11/12/19 07:01 80 14 93 11/12/19 07:00 67 13 120/56 L 92 11/12/19 06:00 80 14 121/71 96 11/12/19 05:00 76 13 125/58 L 96 11/12/19 04:00 36.8 C 74 14 106/65 95 11/12/19 03:00 77 14 131/70 95 11/12/19 02:00 78 12 105/59 L 92 11/12/19 01:00 78 12 112/65 93 11/12/19 00:00 37.4 C 85 15 129/76 96 11/11/19 23:00 73 13 118/59 L 92 11/11/19 22:00 77 14 112/64 92 11/11/19 21:00 76 13 121/67 95 11/12/19 04:11 11/12/19 04:11 Coding Level of Care Code Critical Care 1st 30-74 mins Diagnoses Rheumatoid arthritis involving right knee M06.9 Osteoarthritis of right knee M17.11 Time Spent (min) 33
[2019-11-12] MEDS ORDERED: HYDROmorphone INJ 1 MG/ML SYRINGE ONE (19:36)
[2019-11-12] MEDS ORDERED: HYDROmorphone INJ 1 MG/ML SYRINGE IV ONE (19:45)
[2019-11-12] MEDS: SENNA 8.6 MG TAB PO SCH (21:17)
[2019-11-12] MEDS: HYDROmorphone INJ 1 MG/ML SYRINGE IV PRN (21:25)
[2019-11-12] MEDS: KETOROLAC 30 MG/ML VIAL IV SCH (23:50)
[2019-11-13] MEDS: MoRPHine SULFATE CR 15 MG TABCR PO SCH (03:58)
[2019-11-13] MEDS: KETOROLAC 30 MG/ML VIAL IV SCH (06:06)
[2019-11-13] MEDS: ACETAMINOPHEN 500 MG TAB PO SCH (06:07)
[2019-11-13] MEDS: BusPIRone 15 MG TAB PO SCH (07:50)
[2019-11-13] MEDS: ASPIRIN 81 MG ECTAB PO SCH (07:50)
[2019-11-13] MEDS: LABETALOL HCL 100 MG TAB PO SCH (07:50)
[2019-11-13] MEDS: PANTOprazole 40 MG TAB PO SCH (07:51)
[2019-11-13] MEDS: DOXAZosin MESYLATE 4 MG TAB PO SCH (07:51)
[2019-11-13] MEDS: AMLODIPINE BESYLATE 5 MG TAB PO SCH (07:51)
[2019-11-13] MEDS: predniSONE 1 MG TAB PO SCH (07:51)
[2019-11-13] MEDS: SACUBITRIL-VALSARTAN 97-103 MG TAB PO SCH (07:52)
[2019-11-13] MEDS: MULTIVITAMIN TAB PO SCH (07:52)
[2019-11-13] MEDS: DOCUSATE SODIUM 100 MG CAP PO SCH (07:52)
[2019-11-13] MEDS: GABAPENTIN 100 MG CAP PO SCH (07:52)
--- NOTE | 2019-11-13 07:52 | Orthopedic Progress Note ---
Date of Service November 13, 2019 Assessment & Plan (1) History of total right knee replacement: Overall he is doing about as well as expected. He still in some pain in his knee and he has been slow to ambulate but he is motivated. Physical therapy recommended return home with family and home PT. They will be set up by case management. He will be on MS Contin 30 mg twice a day with morphine 15 mg immediate release as needed for breakthrough pain. This is what he is been getting from his pain management physician. I only gave him a prescription of 20 immediate release morphine tablets to help bridge any time until he gets his next prescription from his pain management physician. He will continue the aspirin for DVT prophylaxis. We will see him in the office in 2 weeks. Present on Admission?: Yes Subjective Aditya was seen and examined at bedside this morning. Overall he is doing okay. He was motivated to work with physical therapy yesterday and he ambulated about 35 feet twice. He is still having a lot of pain in his right knee. He has no new complaints. Physical Exam Musculoskeletal: On physical examination of the right knee, the dressing has been reinforced. He has his MIRIAN hose stocking in place. He has active dorsiflexion plantarflexion of his right ankle. Results & Data ([facility]) Vital Signs (Past 12 Hours) Vital Signs Temp Pulse Resp BP BP Pulse Ox 11/13/19 06:35 36.5 C 82 20 156/87 H 93 11/12/19 23:39 37.0 C 81 19 103/65 92 PG Care Time/CCT Total # of Minutes Spent Total Time Spent with Patient: Total time spent is greater than 50% in coordination of care (as documented) at patient's floor/unit and/or counseling patient: Coding Level of Care Code None Diagnoses History of total right knee replacement Z96.651
[2019-11-13] MEDS: predniSONE 10 MG TABLET PO SCH (07:53)
--- NOTE | 2019-11-13 07:56 | Discharge Summary ---
Date of Service November 13, 2019 Admission HPI Per Admitting Provider Aditya is a pleasant 59-year-old male who has been dealing with chronic increasing right knee pain. His knee has been bothering him for over a year. X-rays and clinical examination have been diagnostic for advanced rheumatoid arthritis of his right knee. He is currently on morphine for his low back pain and he also is on prednisone 8 mg daily for rheumatoid arthritis. He has failed conservative treatment and has elected proceed with a right total knee arthroplasty. Principal Diagnosis Right total knee arthroplasty Discharge Data Allergies Allergy/AdvReac Type Severity Reaction Status Date / Time No Known Drug Allergies Allergy Verified 11/11/19 07:05 Consultations 11/11/19 12:46 Consult Case Management - Discharge Planning Routine 11/11/19 12:54 Consult Critical Power Technician Routine Procedures Performed Operation Date: 11/11/19 08:40 Actual Procedures p Right Total Knee Arthroplasty(Right) - Everton Cary DO Ordered Studies 11/11/19 05:00 US - OR guided needle placemen Routine Hospital Course (1) History of total right knee replacement: On November 11, 2019 [place] arrived at [facility] and underwent a right knee replacement without complication. He had a spinal anesthetic. Postoperatively he was started on aspirin for DVT prophylaxis and transferred to the ICU. His hospital course was only different from expected secondary to his pain management medications. He was on MS Contin 30 mg twice a day with morphine 15 mg immediate release for breakthrough pain. He has been on this chronically for his back pain. Postoperatively he was started on the anesthesia ketamine drip protocol and kept overnight in the ICU. On postop day #1 his H&H was stable. He was seen by physical therapy and was able to ambulate. The ketamine drip was stopped and he was transferred to the general orthopedic floors. He was having some pain overnight and had to increase his IV Dilaudid for the breakthrough pain.On postop day #2 he was still having some pain in his knee but he was able to participate well once again with physical therapy. He was then discharged home. I gave him a prescription for an additional 20 immediate release 15 mg morphine tablets to help bridge any gaps until he gets his next prescription from pain management. He will continue the aspirin for DVT prophylaxis. He will follow-up with orthopedics in 2 weeks. Total Time Total Time Spent Total Time Spent (In Minutes): 20 Discharge Plan Discharge Items Patient Disposition: Home - Home Health Services Reason For Visit: RIGHT KNEE DEGENERATIVE JOINT DISEASE;PRE-OP Discharge Diagnosis: Right total knee Activity: As commented below Non-emergency contact: Surgeon Call non-emergency contact if: your wound has increased redness and your wound has increased drainage Follow-up/Referrals: Giuseppe Romero MD [Primary Care Provider] - Diet: Regular Addtl Attending Provider Instructions: Activity and Therapy Recommendations: * If you are using [facility] then therapy will be provided at your home until they feel you have accomplished all of your goals. * If you are using [facility] then Physical Therapy will be provided until they feel you are ready to start Outpatient Physical Therapy. * If you are not using home therapy then Outpatient Physical Therapy should start about 3-5 days from your day of surgery. Therapy will last about 6-10 weeks * It is important not to put a pillow under your knee when you are relaxing or sleeping. It is just as important to make sure you are getting your knee perfectly straight as it is to regain your knee bend. * You were shown a series of exercises in the hospital. Do these exercises three times each day including the exercises you were shown in physical therapy. * Get up and walk several times each day. For the first four weeks, try not to stand or walk for more than one hour at a time. If you do stand or walk for more than one hour, you will not hurt anything, but your leg will likely swell. * As you feel comfortable, you may change from the walker or crutches to a cane and then to independent walking. Medications: * Narcotic You will likely be sent home from the hospital with a prescription for the narcotic pain medication that worked best throughout your stay. * Aspirin Most patients will be required to take Aspirin 81mg twice a day for 6 weeks after surgery. This is obtained [id number] and a prescription is not necessary. * Other medications may be prescribed for specific circumstances. If you have any questions, please call the office at . * Resume previous home medications unless otherwise instructed TEDs/Elastic Stockings: The white elastic stockings help limit swelling and prevent blood clots from forming in your legs.~ The more you wear them, the more they work. Wear them for six weeks. Dressing Care: Leave the silver dressing on for 7 days. After 7 days you may remove the dressing. If the incision is not draining then you may leave the travis open to air. If there is a little bit of drainage or if the travis are getting stuck on your clothing then cover the incision with a dry dressing. The travis will be removed at your 2 week follow-up appointment. Showering: You may shower with the silver dressing in place. Do not scrub or soak the dressing. After 7 days remove the dressing. After the dressing is removed you may shower with the travis exposed. Let the soapy shower water run over the travis and pat them dry. Do not scrub or soak the incision. Things To Watch For: * Drainage from the incision site that occurs more than one week after your surgery. * Increased redness at the incision site. * Fever above 102 degrees Fahrenheit. * Unusual chest pain or shortness of breath. * Call [facility] at with any of the above problems Follow-Up Visit: Follow-up with Dr. Cary's PA (Everton Oh) 2-3 weeks after your day of surgery. He will remove your travis and answer any questions. If you have any additional questions or concerns, Dr Cary is usually in the office at the same time and will be available An appointment was probably scheduled when you signed-up for surgery in the office. If you have any questions call Office Instructions: More detailed instructions as well as Frequently Asked Questions were provided in a folder by our office when you signed-up for surgery. Please review these instructions when you get home. If you have any further questions or concerns, please feel free to call the office at [phone] Pending Studies at Discharge: No Stand-Alone Forms: My [facility], Smoking Cessation Medications and DC Order Prescriptions: New morphine 15 mg tablet 15 mg PO Q12H PRN (Reason: pain) Qty: 20 RF: 0 aspirin 81 mg Tablet,Delayed Release (Dr/Ec) 81 mg PO BID 42 Days Qty: 0 RF: 0 Continued amlodipine 5 mg Tablet 5 mg PO QAM RF: 0 doxazosin 8 mg Tablet 8 mg PO QAM RF: 0 gabapentin 100 mg Capsule 100 mg PO QID RF: 0 buspirone 15 mg Tablet 15 mg PO TID RF: 0 prednisone 5 mg Tablet 8 mg PO QAM RF: 0 omeprazole 20 mg Capsule,Delayed Release(Dr/Ec) 20 mg PO BID RF: 0 morphine 30 mg Tablet,Oral Only,Extnd Release 30 mg PO BID RF: 0 labetalol 100 mg tablet 50 mg PO BID RF: 0 cyanocobalamin (vitamin B-12) 1,000 mcg Capsule 1,000 mcg PO QAM RF: 0 Entresto 97-103 mg Tablet 1 tab PO BID RF: 0 Discontinued morphine 15 mg Tablet,Oral Only,Extnd Release 15 mg PO Q12H PRN (Reason: Pain) RF: 0 Discharge Orders: Discharge Order (Routine); Ordered 11/13/19 Ordered By: Everton Cary Admission Data Admit Date/Time: 11/11/19 10:35 Attending Provider: Everton Cary Admit Provider: Everton Cary Primary Care Provider: Giuseppe Romero Other Providers: Roc Soria ; Kiana Fan Coding Level of Care Code D/C Day Management <30 mins Diagnoses History of total right knee replacement Z96.651
[2019-11-13] MEDS: HYDROmorphone INJ 1 MG/ML SYRINGE IV PRN (08:07)
== END 2019-11-13 11:04 | disposition home health service (06) ==
LOC: 1E 06:37 → ASU 06:37 → 3E 11-12 14:45

== ENCOUNTER 2020-08-03 11:03 | Inpatient (IN) ==
--- NOTE | 2020-08-03 11:47 | Emergency Department Note ---
Impression & Plan Central stenosis of spinal canal, Back pain, Neuroforaminal stenosis of lumbar spine, Bilateral leg weakness ED Provider Note NAME: FESTUS LONG JR AGE: 59 SEX: M : 1960 ARRIVES VIA: Walk-In INFORMANT: patient, ED PROVIDER(S): Alphonso Mcnamara MD Chief Complaint: Leg weakness HPI: Patient does present with concern for leg weakness. The patient states that he does have prior history of chronic back surgeries most recently completed by Dr. Avelar 2 years prior. The patient states that he got up today got in the shower went to walk-in had weakness in his bilateral lower extremities. The patient denies any bowel or bladder incontinence or retention. Patient has had some pain beginning at the beginning of the week that he was describing on his right side. Patient denies any recent falls. The patient states that when his legs gave out today that he slowly lowered himself to the ground. Patient states that there after he was unable to get up at that time. Patient denies fevers, chills, chest pains or shortness of breath. Patient states he has been compliant with his medications and does receive chronic p.o. morphine secondary to his chronic back pain. Patient denies any hematuria d ysuria. The patient has no history of kidney stones. The patient has taken his typical pain medications but without relief to his discomfort. Patient denies any recent vaccinations. ROS: See HPI for pertinent positives and negatives. A total of 10 systems were reviewed and otherwise negative. Past medical history: See below Surgical history: See below Social history: See below Physical Exam: GENERAL: Wearing a mask. NAD, non-toxic. EYE EXAM: Normal conjunctiva. PERRL, no anisocoria and EOM's grossly intact w/o pain. NECK: Supple, no nuchal rigidity, no adenopathy, non-tender. No signs of meningismus. LUNGS: Clear to auscultation. Normal chest wall mechanics. HEART: NSR, no MRG. Chest: Mild lower lateral chest wall discomfort without flail chest. No overlying skin changes. ABDOMEN: Abdomen soft, non-tender, normo-active bowel sounds, no masses, no rebound or guarding. BACK: No CVA TTP. No midline lumbar or thoracic pain. SKIN: No rashes and no bruising. UPPER EXTREMITIES: Upper extremities are grossly normal. LOWER EXTREMITIES: Grossly normal, no edema. No saddle anesthesia, 4-5 strength bilateral lower extremities, no sensory deficits. Decreased ability to dorsiflex compared with plantar flexion b/l. NEURO EXAM: A&O x3, cranial nerves II-XII grossly intact, normal speech, moves all 4 extremities but with associated leg weakness. Differential diagnoses: Infection, dehydration, metabolic abnormality, hypo/hyperglycemia, electrolyte disturbance, anemia, hypoxia, cardiac sources, intracerebral event, toxicologic, neurologic, as well as other pathologies. Course: Patient was seen and evaluated the bedside. Full history physical exam was performed. EKG: Location: Weakness Normal sinus rhythm, rate of 77, wide QRS, normal CA, left lateral branch block pattern. No obvious sclerosing criteria. No significant change from comparison EKG July 15 Imaging Studies: Radiology results as stated below per my review in the radiologist's interpretation: SINGLE VIEW CHEST CLINICAL HISTORY: Right-sided chest wall pain. FINDINGS: An AP, portable, upright chest radiograph is compared to chest x-ray and chest CT dated 06/28/2020. The heart is enlarged. The pulmonary vasculature is noncongested there is chronic elevation of the right hemidiaphragm with bib asilar atelectasis. No airspace consolidation or large pleural effusion is identified. No pneumothorax is seen. The bony thorax is grossly intact. Degenerative change is noted in the shoulders. Fusion hardware is seen in the lower cervical spine. IMPRESSION: Cardiomegaly with no active disease in the chest. ACT 112: Negative or not required by law. Electronically signed by: Mir Villalba M.D. 08/03/2020 2:25 PM Dictated: 08/03/20 1424 Transcribed: 08/03/[address] lumbar spine wo con CT DOSE: 641.49 mGy.cm CLINICAL HISTORY: back pain, leg weakness TECHNIQUE: Helical images were acquired in transverse plane. Reformatted sagittal and coronal images were reviewed. A dose lowering technique was utilized adhering to the principles of ALARA. CONTRAST: No contrast was administered COMPARISON STUDY: MRI dated 09/09/2017 FINDINGS: L1-2 level: There is an 8 mm sclerotic L1 lesion likely representing a bone island. There is a minimal circumferential disc bulge. There is no significant spinal or foraminal stenosis L2-3 level: There is marked disc desiccation. There is a vacuum disc. There is a circumferential disc bulge. There is severe spinal stenosis. There is moderate right-sided foraminal narrowing L3-4 level: There is severe disc degeneration. There is gas within the disc. There are postlaminectomy changes. There is calcific debris within the right foramen. There is moderate to severe right-sided foraminal narrowing. The right L4 pedicle screw extends into the disc. L4-5 level: There are postsurgical changes of a discectomy and interbody fusion. There are postlaminectomy changes. There is no significant spinal stenosis. There is mild bilateral foraminal narrowing L5-S1 level: There are postsurgical changes of discectomy and interbody fusion. There are postlaminectomy changes. There is no significant spinal stenosis. There is mild right-sided foraminal narrowing. There are postsurgical changes of an L4-S1 posterior spinal fusion with pedicle screws and rods. IMPRESSION: 1. Postsurgical changes are prior L4-S1 spinal decompression and fusion. The right L4 pedicle screw extends into the L3-4 disc 2. Advanced multilevel spondylytic changes. 3. Severe L2-3 spinal stenosis 4. Multilevel foraminal narrowing ACT 112: Negative or not required by law. Electronically signed by: Gabriele Morales M.D. 08/03/2020 1:47 PM Dictated: 08/03/20 1330 Transcribed: 08/03/20 1332 MR lumbar spine wo con CLINICAL HISTORY: 59 years-old Male with leg weakness. Acute back pain with lower extremity weakness COMPARISON: CT lumbar spine of same day, MRI lumbar spine 09/09/2017 TECHNIQUE: Multiplanar, multi sequence MRI of the lumbar spine was performed without intravenous contrast. FINDINGS: Lumbar levoscoliosis of approximately 31 degrees measured from L2-L5. Prior laminectomy with posterior interbody yeyo and screw fusion and discectomy at L4- S1. Artifact from the hardware limits evaluation of these levels. Trace fluid within the L3-L4 disc space posteriorly is likely on a degenerative basis. Moderate asymmetric atrophy of the right psoas musculature. Mild adjacent nonspecific edema. Multilevel central canal stenosis of the lower thoracic spine. T12-L1: Severe intervertebral disc space narrowing with spondylitic spurring, posterior disc osteophyte complex and advanced facet arthrosis. AP dimension of the thecal sac measures 8 mm. Mild central canal stenosis with severe left and mild right neural foraminal narrowing. Findings have progressed from comparison. L1-L2: Moderate intervertebral disc space narrowing with tiny posterior annular disc bulge. Ligamentum flavum thickening with moderate facet arthrosis. Central canal and neuroforamina are patent. L2-L3: Progressively worsened severe intervertebral disc space narrowing. Spondylitic spurring with posterior disc osteophyte complex. Ligamentum flavum thickening with severe facet arthrosis and small bilateral facet effusions. Severe central canal stenosis, AP dimension of the thecal sac measuring 3.5 mm. Severe narrowing of the lateral recesses with moderate bilateral neuroforaminal narrowing. Findings have progressed from comparison. L3-L4: Severe intervertebral disc space narrowing with trace fluid within the posterior aspect of the disc space, likely on a degenerative basis. Spondylitic spurring with posterior disc osteophyte complex. Ligamentum flavum thickening with severe facet arthrosis. Central canal is patent. There is narrowing of the right greater than left lateral recesses. Mild to moderate left with severe right neuroforaminal narrowing. L4-L5: Discectomy changes with spondylitic spurring and facet arthrosis. Central canal is patent. The neuroforamen are not well visualized secondary to artifact from the hardware. There appears to be at least moderate right neuroforaminal stenosis and at least mild left. L5-S1: Posterior fusion with discectomy. 4 mm anterolisthesis is unchanged. Circumferential annular disc bulge with facet arthrosis. Central canal is patent. Limited visualization of the neuroforamina. There is suggestion of mild bilateral neuroforaminal stenosis. IMPRESSION: 1. 30 degrees lumbar levoscoliosis has substantially progressed from the 2018 comparison. 2. Prior laminectomy with posterior interbody yeyo and screw fusion and discectomy at L4-S1. 3. Severe intervertebral disc space narrowing at L2-L3 with discogenic degeneration resulting in moderate bilateral neuroforaminal stenosis with severe central canal narrowing. 4. Trace fluid within the posterior aspect of the L3-L4 disc space is likely on a degenerative basis. 5. No acute fracture or subluxation identified. ACT 112: Negative or not required by law. The above report was generated using voice recognition software. It may contain grammatical, syntax or spelling errors. Electronically signed by: Prashanth White M.D. 08/03/2020 3:30 PM Dictated: 08/03/20 151 Transcribed: 08/03/20 151 Cardiac monitoring: An order was placed for continuous cardiac monitoring. The monitor shows a rate of 63 with sinus rhythm. MDM: Patient did present with concern for bilateral lower extremity weakness. Blood work was obtained along with an EKG and lumbar CT. EKG is unchanged. Patient's blood work showed normal white count with mild anemia 12.3. Platelet count is unremarkable. The patient has normal kidney function LFTs. TSH is normal. The patient CT did show some calcinosis. Given the patient's weakness I did order lumbar MRI. Chest x-ray is obtained as the patient's acute pain aside from his chronic back pain was more related to right-sided costal margin pain. Chest x-ray does not show any evidence of pneumothorax. The patient's lumbar spine MRI does show bilateral foraminal narrowing as well as central ca nal stenosis. The patient does not have any bowel or bladder incontinence or retention and no numbness but given the patient's difficulty with dorsiflexion as well as bilateral lower extremity weakness I did speak to the on-call orthopedist Dr. Robles who recommended inpatient treatment and he would consider injections and discuss additional treatment options but given the patient's ambulatory dysfunction I do not believe the patient may go home at this time. I did speak the on-call hospitalist Dr. Amaya the patient was admitted to the medicine service. Past Med/Surg History Medical History (Updated 08/03/20 @ 17:06 by Alphonso Mcnamara MD) Cardiomyopathy EF 35-40% on 06/2018 echo Chronic back pain TO BILAT LEGS GERD (gastroesophageal reflux disease) CONTROLLED Hypertension LABILE Kidney stones LBBB (left bundle branch block) "CHRONIC" PER CARDIO Obesity Osteoarthritis Rheumatoid arthritis SOB (shortness of breath) on exertion Spinal stenosis of lumbar region at multiple levels Surgical History History of colonoscopy History of lithotripsy History of lumbar fusion X 2 WITH HARDWARE History of total right knee replacement (~10/2019) Family History Mother Family hx of colon cancer Social History Smoking Status: Never smoker Second Hand Exposure: No; Hx Alcohol Use: No Hx Substance Use: No Preferred Language: Slovak Communication Ability: Effective Visual Impairment: No Limitations [employer] Technician Required: No Beliefs That Will Affect Care: None Current Living Situation: Significant Other Feels Safe at Home: Yes Assistive Devices: Walker Allergies Allergies Allergy/AdvReac Type Severity Reaction Status Date / Time No Known Drug Allergies Allergy Verified 08/03/20 14:32 Home Meds Home Medications Medication Instructions Recorded Confirmed amlodipine 5 mg PO QAM 03/24/18 08/03/20 doxazosin 8 mg PO QAM 03/24/18 08/03/20 gabapentin 100 mg PO QAM 03/24/18 08/03/20 morphine 30 mg PO BID 03/24/18 08/03/20 omeprazole 20 mg PO BID 03/24/18 08/03/20 prednisone 5 mg PO QAM 03/24/18 08/03/20 cyanocobalamin (vitamin B-12) 1,000 mcg PO QAM 07/21/19 08/03/20 Entresto 1 tab PO BID 10/20/19 08/03/20 labetalol 100 mg tablet 100 mg PO BID tab 11/04/19 08/03/20 multivitamin 1 tab PO QAM 01/19/20 08/03/20 duloxetine 30 mg PO HS 06/28/20 08/03/20 gabapentin 300 mg PO BID 06/28/20 08/03/20 memantine 10 mg PO BID 06/28/20 08/03/20 morphine 15 mg PO TID PRN 06/28/20 08/03/20 spironolactone 25 mg PO BID 06/28/20 08/03/20 buspirone 15 mg tablet 15 mg PO BID tab 07/04/20 08/03/20 Previous Rx's Medication Instructions Recorded amoxicillin 500 mg tablet 2,000 mg PO ONCE PRN #4 tab 01/26/20 diclofenac sodium 75 mg See Rx Instructions .ROUTE 07/02/20 tablet,delayed release .COMPLEX #60 tablet albuterol sulfate 90 mcg/actuation See Rx Instructions .ROUTE 07/27/20 aerosol inhaler .COMPLEX PRN #8.5 g fluticasone 250 mcg-salmeterol 50 1 inh INHALATION BID #60 ea 07/27/20 mcg/dose blistr powdr for inhalation Results & Data (ED) Vital Signs Vital Signs - 24 hr 08/03/20 11:13 08/03/20 12:45 08/03/20 13:00 Temperature 36.5 C Temperature Source Temporal Artery Scan Pulse Rate 90 63 Pulse Rhythm Regular Pulse Strength Normal Respiratory Rate 16 13 Respiratory Effort / Characteristics Non-Labored Respiratory Depth Normal Respiratory Pattern Regular Blood Pressure 108/68 115/70 Blood Pressure Mean 81 85 Blood Pressure Position Sitting Pulse Oximetry 96 93 92 Oxygen Delivery Method Room Air Room Air Sepsis Recent Fever Within 48 Hours No Sepsis New/Unexplained Change in Mental Status N/A Sepsis Action Taken by Nursing No Action Required 08/03/20 13:32 08/03/20 14:00 08/03/20 15:08 Temperature Temperature Source Pulse Rate 65 84 90 Pulse Rhythm Pulse Strength Respiratory Rate 16 22 22 Respiratory Effort / Characteristics Respiratory Depth Respiratory Pattern Blood Pressure 142/79 H 159/84 H 128/82 Blood Pressure Mean 100 109 97 Blood Pressure Position Pulse Oximetry 96 96 91 Oxygen Delivery Method Sepsis Recent Fever Within 48 Hours Sepsis New/Unexplained Change in Mental Status Sepsis Action Taken by Nursing 08/03/20 15:30 08/03/20 16:00 Temperature Temperature Source Pulse Rate 82 86 Pulse Rhythm Pulse Strength Respiratory Rate 12 15 Respiratory Effort / Characteristics Respiratory Depth Respiratory Pattern Blood Pressure 122/63 135/82 Blood Pressure Mean 82 99 Blood Pressure Position Pulse Oximetry 97 97 Oxygen Delivery Method Room Air Room Air Sepsis Recent Fever Within 48 Hours Sepsis New/Unexplained Change in Mental Status Sepsis Action Taken by [facility] Medications Current Medication List: was personally reviewed by me Laboratory Data Attestation: I reviewed the patient's lab results. Result diagrams: 08/03/20 12:13 08/03/20 12:13 Lab Results 08/03/20 08/03/20 08/03/20 Range/Units 12:13 12:13 12:13 WBC 7.22 (4.8-10.8) K/uL RBC 3.85 L (4.7-6.1) M/uL Hgb 12.3 L (14.0-18.0) g/dL Hct 36.8 L (42-52) % MCV 95.6 (80-100) fL MCH 31.9 (25-34) pg MCHC 33.4 (32-36) g/dL RDW Std Deviation 46.1 (36.4-46.3) fL RDW Coeff of Jaja 13.2 (11.5-14.5) % Plt Count 285 (130-400) K/uL MPV 9.3 (7.4-10.4) fL Immature Gran % (Auto) 0.1 % Neut % (Auto) 79.9 % Lymph % (Auto) 10.5 % Edwards % (Auto) 8.0 % Eos % (Auto) 1.2 % Baso % (Auto) 0.3 % Neut # (Auto) 5.76 (1.4-6.5) K/uL Lymph # (Auto) 0.76 L (1.2-3.4) K/uL Edwards # (Auto) 0.58 (0.11-0.59) K/uL Eos # (Auto) 0.09 (0-0.5) K/uL Baso # (Auto) 0.02 (0-0.2) K/uL Immature Gran # (Auto) 0.01 (0.00-0.02) K/uL PT 9.7 (9.0-12.0) Seconds INR 1.0 (0.9-1.1) Sodium 137 (136-145) mmol/L Potassium 4.8 (3.5-5.1) mmol/L Chloride 104 (98-107) mmol/L Carbon Dioxide 31 (21-32) mmol/L Anion Gap 2.0 L (3-11) BUN 15 (7-18) mg/dl Creatinine 1.10 (0.6-1.4) mg/dl Est Cr Clr Drug Dosing Not Reportable Est GFR ( Amer) 83.5 Est GFR (Non-Af Amer) 72.1 BUN/Creatinine Ratio 14.0 (10-20) Glucose 77 (70-99) mg/dl Calcium 8.5 (8.5-10.1) mg/dl Magnesium 2.4 (1.8-2.4) mg/dl Total Bilirubin 0.4 (0.2-1) mg/dl AST 19 (15-37) U/L ALT 28 (12-78) U/L Alkaline Phosphatase 86 (45-117) U/L Total Protein 7.0 (6.4-8.2) gm/dl Albumin 3.7 (3.4-5.0) gm/dl Globulin 3.3 (2.5-4.0) gm/dl Albumin/Globulin Ratio 1.1 (0.9-2) TSH 1.950 (0.300-4.500) uIu/ml COVID-19 Eval Order SARS-CoV-2, RNA, NAAT (NEGATIVE) 08/03/20 08/03/20 Range/Units 16:06 16:06 WBC (4.8-10.8) K/uL RBC (4.7-6.1) M/uL Hgb (14.0-18.0) g/dL Hct (42-52) % MCV (80-100) fL MCH (25-34) pg MCHC (32-36) g/dL RDW Std Deviation (36.4-46.3) fL RDW Coeff of Jaja (11.5-14.5) % Plt Count (130-400) K/uL MPV (7.4-10.4) fL Immature Gran % (Auto) % Neut % (Auto) % Lymph % (Auto) % Edwards % (Auto) % Eos % (Auto) % Baso % (Auto) % Neut # (Auto) (1.4-6.5) K/uL Lymph # (Auto) (1.2-3.4) K/uL Edwards # (Auto) (0.11-0.59) K/uL Eos # (Auto) (0-0.5) K/uL Baso # (Auto) (0-0.2) K/uL Immature Gran # (Auto) (0.00-0.02) K/uL PT (9.0-12.0) Seconds INR (0.9-1.1) Sodium (136-145) mmol/L Potassium (3.5-5.1) mmol/L Chloride (98-107) mmol/L Carbon Dioxide (21-32) mmol/L Anion Gap (3-11) BUN (7-18) mg/dl Creatinine (0.6-1.4) mg/dl Est Cr Clr Drug Dosing Est GFR ( Amer) Est GFR (Non-Af Amer) BUN/Creatinine Ratio (10-20) Glucose (70-99) mg/dl Calcium (8.5-10.1) mg/dl Magnesium (1.8-2.4) mg/dl Total Bilirubin (0.2-1) mg/dl AST (15-37) U/L ALT (12-78) U/L Alkaline Phosphatase (45-117) U/L Total Protein (6.4-8.2) gm/dl Albumin (3.4-5.0) gm/dl Globulin (2.5-4.0) gm/dl Albumin/Globulin Ratio (0.9-2) TSH (0.300-4.500) uIu/ml COVID-19 Eval [facility] SARS-CoV-2, RNA, NAAT NEGATIVE (NEGATIVE) Administered Medications Lorazepam (Ativan) 1 mg in 2 mls @ 0.5 mls/min IV UD PRN PRN Reason: Anxiety Stop: 09/02/20 14:15 Last Admin: 08/03/20 14:23 Dose: 0.5 mls/min Documented by: [id number] Discontinued Medications Acetaminophen (Acetaminophen 325 Mg Tab) 650 mg PO NOW STA Stop: 08/03/20 11:56 Last Admin: 08/03/20 12:34 Dose: 650 mg Documented by: [id number] Fentanyl Citrate (Fentanyl Citrate 100 Mcg/2 Ml Vial) 50 mcg IV NOW STA Stop: 08/03/20 11:56 Last Admin: 08/03/20 12:33 Dose: 50 mcg Documented by: [id number] Fentanyl Citrate (Fentanyl Citrate 100 Mcg/2 Ml Vial) 75 mcg IV NOW STA Stop: 08/03/20 13:58 Last Admin: 08/03/20 14:06 Dose: 75 mcg Documented by: [id number] Sodium Chloride (Nss 1000ml) 1,000 mls @ 999 mls/hr IV .Q1H1M WILLIAM Stop: 08/03/20 13:00 Last Infusion: 08/03/20 13:35 Dose: 0 mls/hr Documented by: [id number] Admin: 08/03/20 12:34 Dose: 999 mls/hr Documented by: [id number] Lidocaine (Lidocaine 5% 1 Patch) 1 patch TD NOW STA Stop: 08/03/20 11:56 Last Admin: 08/03/20 12:33 Dose: 1 patch Documented by: [id number] Methylprednisolone (Methylprednisolone 125 Mg/2 Ml Vial) 60 mg IV NOW STA Stop: 08/03/20 11:56 Last Admin: 08/03/20 12:33 Dose: 60 mg Documented by: [id number] Ondansetron HCl (Ondansetron Inj 2 Mg/Ml 2 Ml Vial) 4 mg IV NOW STA Stop: 08/03/20 11:56 Last Admin: 08/03/20 12:33 Dose: 4 mg Documented by: [id number] Discharge Plan Visit Data Chief Complaint: Leg Weakness, Bilateral Stated Complaint: UNABLE TO WALK ED Provider: Alphonso Mcnamara Discharge Problem: Central stenosis of spinal canal, Back pain, Neuroforaminal stenosis of lumbar spine, Bilateral leg weakness Forms Stand Alone Forms: [facility] [employer] Prescriptions Prescriptions: No Action amoxicillin 500 mg tablet 2,000 mg PO ONCE PRN (Reason: prophylaxis) Qty: 4 RF: 2 diclofenac sodium 75 mg tablet,delayed release (DR/EC) See Rx Instructions .ROUTE .COMPLEX Qty: 60 RF: 2 fluticasone propion-salmeterol [Advair Diskus] 250-50 mcg/dose blister with device 1 inh inhalation BID Qty: 60 RF: 11 albuterol sulfate 90 mcg/actuation HFA aerosol inhaler See Rx Instructions .ROUTE .COMPLEX PRN (Reason: shortness of breath or wheezing) Qty: 8.5 RF: 11 amlodipine 5 mg Tablet 5 mg PO QAM RF: 0 doxazosin 8 mg Tablet 8 mg PO QAM RF: 0 gabapentin 100 mg Capsule 100 mg PO QAM RF: 0 prednisone 5 mg Tablet 5 mg PO QAM RF: 0 omeprazole 20 mg Capsule,Delayed Release(Dr/Ec) 20 mg PO BID RF: 0 morphine 30 mg Tablet,Oral Only,Extnd Release 30 mg PO BID RF: 0 labetalol 100 mg tablet 100 mg PO BID RF: 0 buspirone 15 mg tablet 15 mg PO BID RF: 0 cyanocobalamin (vitamin B-12) 1,000 mcg Capsule 1,000 mcg PO QAM RF: 0 Entresto 97-103 mg Tablet 1 tab PO BID RF: 0 multivitamin Tablet 1 tab PO QAM RF: 0 spironolactone 25 mg tablet 25 mg PO BID RF: 0 gabapentin 300 mg Capsule 300 mg PO BID RF: 0 memantine 10 mg tablet 10 mg PO BID RF: 0 duloxetine 30 mg capsule,delayed release(DR/EC) 30 mg PO HS RF: 0 morphine 15 mg tablet 15 mg PO TID PRN (Reason: pain) RF: 0 Discharge Problem: Back pain Qualifiers: Back pain location: low back pain Chronicity: chronic Back pain laterality: midline Sciatica presence: unspecified whether sciatica present Qualified Code(s): M54.5 - Low back pain
[2020-08-03] MEDS ORDERED: ONDANSETRON INJ 2 MG/ML 2 ML VIAL IV STA (11:55)
[2020-08-03] MEDS ORDERED: fentaNYL citrate 100 MCG/2 ML VIAL IV STA ×2 (11:55→13:57)
[2020-08-03] MEDS ORDERED: LIDOCAINE 5% 1 PATCH TD STA (11:55)
[2020-08-03] MEDS ORDERED: ACETAMINOPHEN 325 MG TAB PO STA (11:55)
[2020-08-03] MEDS ORDERED: methylPREDNISolone 125 MG/2 ML VIAL IV STA (11:55)
[2020-08-03] MEDS ORDERED: SODIUM CHLORIDE 0.9% 1000ML 1,000 ML IV SCH (12:00)
[2020-08-03 12:25] LABS: Basophils # (auto) 0.02 K/uL (0-0.2); Basophils % (auto) 0.3 %; Eosinophils # (auto) 0.09 K/uL (0-0.5); Eosinophils % (auto) 1.2 %; Hematocrit (blood only) 36.8 % (42-52); Hemoglobin 12.3 g/dL (14.0-18.0); Immature Granulocytes # (auto) 0.01 K/uL (0.00-0.02); Immature Granulocytes % (auto) 0.1 %; Lymphocytes # (auto) 0.76 K/uL (1.2-3.4); Lymphocytes % (auto) 10.5 %; Mean Corpuscular Hemoglobin 31.9 pg (25-34); Mean Corpuscular Hgb Conc 33.4 g/dL (32-36); Mean Corpuscular Volume 95.6 fL (80-100); Mean Platelet Volume 9.3 fL (7.4-10.4); Monocytes # (auto) 0.58 K/uL (0.11-0.59); Neutrophils # (auto) 5.76 K/uL (1.4-6.5); Neutrophils % (auto) 79.9 %; Platelet Count 285 K/uL (130-400); RDW Coefficient of Variation 13.2 % (11.5-14.5); RDW Standard Deviation 46.1 fL (36.4-46.3); Red Blood Count 3.85 M/uL (4.7-6.1); White Blood Count 7.22 K/uL (4.8-10.8)
[2020-08-03 12:41] LABS: Alanine Aminotransferase 28 U/L (12-78); Albumin Level 3.7 gm/dl (3.4-5.0); Aspartate Aminotransferase 19 U/L (15-37); Blood Urea Nitrogen 15 mg/dl (7-18); Calcium 8.5 mg/dl (8.5-10.1); Carbon Dioxide 31 mmol/L (21-32); Chloride 104 mmol/L (98-107); Est GFR (African American) 83.5; Est GFR (Non-African American) 72.1; Glucose 77 mg/dl (70-99); Magnesium 2.4 mg/dl (1.8-2.4); Potassium 4.8 mmol/L (3.5-5.1); Sodium 137 mmol/L (136-145)
[2020-08-03 12:43] LABS: Prothrombin Time 9.7 Seconds (9.0-12.0)
[2020-08-03 12:52] LABS: Albumin Globulin Ratio 1.1 (0.9-2); Alkaline Phosphatase 86 U/L (45-117); Bilirubin,Total 0.4 mg/dl (0.2-1); Globulin 3.3 gm/dl (2.5-4.0)
--- NOTE | 2020-08-03 13:48 | CT Scan Report ---
CT lumbar spine wo con CT DOSE: 641.49 mGy.cm CLINICAL HISTORY: back pain, leg weakness TECHNIQUE: Helical images were acquired in transverse plane. Reformatted sagittal and coronal images were reviewed. A dose lowering technique was utilized adhering to the principles of ALARA. CONTRAST: No contrast was administered COMPARISON STUDY: MRI dated 09/09/2017 FINDINGS: L1-2 level: There is an 8 mm sclerotic L1 lesion likely representing a bone island. There is a minima l circumferential disc bulge. There is no significant spinal or foraminal stenosis L2-3 level: There is marked disc desiccation. There is a vacuum disc. There is a circumferential disc bulge. There is severe spinal stenosis. There is moderate right-sided foraminal narrowing L3-4 level: There is severe disc degeneration. There is gas within the disc. There are postlaminectom y changes. There is calcific debris within the right foramen. There is moderate to severe right-sided foraminal narrowing. The right L4 pedicle screw extends into the disc. L4-5 level: There are postsurgical changes of a discectomy and interbody fusion. There are postlamine ctomy changes. There is no significant spinal stenosis. There is mild bilateral foraminal narrowing L5-S1 level: There are postsurgical changes of discectomy and interbody fusion. There are postlaminec rose changes. There is no significant spinal stenosis. There is mild right-sided foraminal narrowing. There are postsurgical changes of an L4-S1 posterior spinal fusion with pedicle screws and rods. IMPRESSION: 1. Postsurgical changes are prior L4-S1 spinal decompression and fusion. The right L4 pedicle screw e xtends into the L3-4 disc 2. Advanced multilevel spondylytic changes. 3. Severe L2-3 spinal stenosis 4. Multilevel foraminal narrowing ACT 112: Negative or not required by law. Electronically signed by: Gabriele Morales M.D. 08/03/2020 1:47 PM
[2020-08-03] MEDS ORDERED: LORazepam 1 MG/2 ML VIAL IV PRN (14:16)
--- NOTE | 2020-08-03 14:27 | XRay Report ---
SINGLE VIEW CHEST CLINICAL HISTORY: Right-sided chest wall pain. FINDINGS: An AP, portable, upright chest radiograph is compared to chest x-ray and chest CT dated 06/28. The heart is enlarged. The pulmonary vasculature is noncongested there is chronic elevation of the right hemidiaphragm with bibasilar atelectasis. No airspace consolidation or large pleural effus ion is identified. No pneumothorax is seen. The bony thorax is grossly intact. Degenerative change is noted in the shoulders. Fusion hardware is seen in the lower cervical spine. IMPRESSION: Cardiomegaly with no active disease in the chest. ACT 112: Negative or not required by law. Electronically signed by: Mir Villalba M.D. 08/03/2020 2:25 PM
--- NOTE | 2020-08-03 15:31 | Magnetic Resonance Report ---
MR lumbar spine wo con CLINICAL HISTORY: 59 years-old Male with leg weakness. Acute back pain with lower extremity weakness COMPARISON: CT lumbar spine of same day, MRI lumbar spine 09/09/2017 TECHNIQUE: Multiplanar, multi sequence MRI of the lumbar spine was performed without intravenous cont rast. FINDINGS: Lumbar levoscoliosis of approximately 31 degrees measured from L2-L5. Prior laminectomy with posterio r interbody yeyo and screw fusion and discectomy at L4-S1. Artifact from the hardware limits evaluatio n of these levels. Trace fluid within the L3-L4 disc space posteriorly is likely on a degenerative ba sis. Moderate asymmetric atrophy of the right psoas musculature. Mild adjacent nonspecific edema. Mul tilevel central canal stenosis of the lower thoracic spine. T12-L1: Severe intervertebral disc space narrowing with spondylitic spurring, posterior disc osteoph yte complex and advanced facet arthrosis. AP dimension of the thecal sac measures 8 mm. Mild central canal stenosis with severe left and mild right neural foraminal narrowing. Findings have progressed f rom comparison. L1-L2: Moderate intervertebral disc space narrowing with tiny posterior annular disc bulge. Ligament um flavum thickening with moderate facet arthrosis. Central canal and neuroforamina are patent. L2-L3: Progressively worsened severe intervertebral disc space narrowing. Spondylitic spurring with posterior disc osteophyte complex. Ligamentum flavum thickening with severe facet arthrosis and small bilateral facet effusions. Severe central canal stenosis, AP dimension of the thecal sac measuring 3 .5 mm. Severe narrowing of the lateral recesses with moderate bilateral neuroforaminal narrowing. Fin dings have progressed from comparison. L3-L4: Severe intervertebral disc space narrowing with trace fluid within the posterior aspect of th e disc space, likely on a degenerative basis. Spondylitic spurring with posterior disc osteophyte com plex. Ligamentum flavum thickening with severe facet arthrosis. Central canal is patent. There is evan rowing of the right greater than left lateral recesses. Mild to moderate left with severe right neuro foraminal narrowing. L4-L5: Discectomy changes with spondylitic spurring and facet arthrosis. Central canal is patent. Th e neuroforamen are not well visualized secondary to artifact from the hardware. There appears to be a t least moderate right neuroforaminal stenosis and at least mild left. L5-S1: Posterior fusion with discectomy. 4 mm anterolisthesis is unchanged. Circumferential annular disc bulge with facet arthrosis. Central canal is patent. Limited visualization of the neuroforamina. There is suggestion of mild bilateral neuroforaminal stenosis. IMPRESSION: 1. 30 degrees lumbar levoscoliosis has substantially progressed from the 2018 comparison. 2. Prior laminectomy with posterior interbody yeyo and screw fusion and discectomy at L4-S1. 3. Severe intervertebral disc space narrowing at L2-L3 with discogenic degeneration resulting in mode rate bilateral neuroforaminal stenosis with severe central canal narrowing. 4. Trace fluid within the posterior aspect of the L3-L4 disc space is likely on a degenerative basis. 5. No acute fracture or subluxation identified. ACT 112: Negative or not required by law. The above report was generated using voice recognition software. It may contain grammatical, syntax o r spelling errors. Electronically signed by: Prashanth White M.D. 08/03/2020 3:30 PM
[2020-08-03] MEDS ORDERED: HYDROmorphone INJ 0.5 MG/0.5 ML SYR IV STA (17:00)
--- NOTE | 2020-08-03 18:10 | History & Physical Report ---
Date of Service August 03, 2020 Assessment & Plan (1) Bilateral leg weakness: Acute on chronic spinal stenosis and compression. There is no concern for cauda equina syndrome -Ortho-spine consulted Dr. Robles- real time update. NPO tonight as well and MRI of thoracic region no PURNIMA. - L5-S1 pattern of weakness- as above mild left foot drop decreased dorsiflexion left foot, normal Babinski, equal sensation and muscle tone. - PT/OT consult in morning - Pain control - Methylpred given in ER but orthopedic spine surgeon did not want further steroids given at this time - Follow for any declination in exams. 12-L1: Severe intervertebral disc space narrowing with spondylitic spurring, posterior disc osteophyte complex and advanced facet arthrosis. AP dimension of the thecal sac measures 8 mm. Mild central canal stenosis with severe left and mild right neural foraminal narrowing. Findings have progressed from comparison. L1-L2: Moderate intervertebral disc space narrowing with tiny posterior annular disc bulge. Ligamentum flavum thickening with moderate facet arthrosis. Central canal and neuro-foramina are patent. L2-L3: Progressively worsened severe intervertebral disc space narrowing. Spondylitic spurring with posterior disc osteophyte complex. Ligamentum flavum thickening with severe facet arthrosis and small bilateral facet effusions. Severe central canal stenosis, AP dimension of the thecal sac measuring 3.5 mm. Severe narrowing of the lateral recesses with moderate bilateral neuroforaminal narrowing. Findings have progressed from comparison. L3-L4: Severe intervertebral disc space narrowing with trace fluid within the posterior aspect of the disc space, likely on a degenerative basis. Spondylitic spurring with posterior disc osteophyte complex. Ligamentum flavum thickening with severe facet arthrosis. Central canal is patent. There is narrowing of the right greater than left lateral recesses. Mild to moderate left with severe right neuroforaminal narrowing. L4-L5: Discectomy changes with spondylitic spurring and facet arthrosis. Central canal is patent. The neuro-foramen are not well visualized secondary to artifact from the hardware. There appears to be at least moderate right neuroforaminal stenosis and at least mild left. L5-S1: Posterior fusion with discectomy. 4 mm anterolisthesis is unchanged. Circumferential annular disc bulge with facet arthrosis. Central canal is patent. Limited visualization of the neuro-foramina. There is suggestion of mild bilateral neuroforaminal stenosis. (2) Back pain: Continue pain medication, plan for steroid injection in the morning - Hold NSAIDs - OK with VTE prophylaxis - heat and/or ice as tolerated for pain relief - Tylenol, oral Morphine for mild-mod pain, IV morphine for severe pain. (3) Neuroforaminal stenosis of lumbar spine: as above (4) Cardiomyopathy, idiopathic: Currently stable no acute issues, patient with mild edema to lower extremities, clear lungs, well perfused - Continue Entresto, amlodipine, and labetalol, Aldactone (5) Restrictive airway disease: Mild- likely related to his scoliosis and chronic spinal changes and right sissy-diaphragm - Continue albuterol inhaler (6) Chronic use of steroids: - Continue oral steroids and omeprazole for GI prophy (7) DVT prophylaxis: Heparin SQ Disposition-admit to medical/surgical floor History of Present Illness Chief Complaint: Lower extremity weakness Primary Care Provider: Giuesppe Romero MD 59 YOM with significant past medical history of chronic back pain, cervical and lumbar spine surgery, leg weakness, cardiomyopathy, LBBB, Rheumatoid Arthritis, Right TKR (2019), spinal stenosis. Patient comes to the emergency room today for evaluation of lower extremity weakness. Patient states that for the past week he has noticed that his lower extremities have been getting weaker and he also needed to start using his cane to get around. Today he was putting on his boots to go outside and upon going outside, his legs got weak and "gave out" he was unable to stand and had to drag himself to his truck. He then drove himself to the [facility]. The patien'ts weakness is not associated with any numbness or tingling. He does report a new pain on his right lower back that tracks distally up the right flank. No pain traveling down either leg. Pain gets worse with bending over. He is on Advil and Morphine for his pain at home he reports. He denies any bowel or bladder symptoms or saddle anesthesia. In the EMD the patient had CT scan of his spine and a lumbar MRI done, received pain medications, IV steroids. The ER physician Dr. Mcnamara spoke with Dr. Robles ORTHO SPINE, and would like him to be brought in for injections and evaluations. We also updated Dr. Robles real time regarding exam findings. Allergies Allergy/AdvReac Type Severity Reaction Status Date / Time No Known Drug Allergies Allergy Verified 08/03/20 14:32 Home Medications Medication Instructions Recorded Confirmed Type amlodipine 5 mg PO QAM 03/24/18 08/03/20 History doxazosin 8 mg PO QAM 03/24/18 08/03/20 History gabapentin 100 mg PO QAM 03/24/18 08/03/20 History morphine 30 mg PO BID 03/24/18 08/03/20 History omeprazole 20 mg PO BID 03/24/18 08/03/20 History prednisone 5 mg PO QAM 03/24/18 08/03/20 History cyanocobalamin (vitamin B-12) 1,000 mcg PO QAM 07/21/19 08/03/20 History Entresto 1 tab PO BID 10/20/19 08/03/20 History labetalol 100 mg tablet 100 mg PO BID tab 11/04/19 08/03/20 History multivitamin 1 tab PO QAM 01/19/20 08/03/20 History amoxicillin 500 mg tablet 2,000 mg PO ONCE PRN #4 tab 01/26/20 08/03/20 Rx duloxetine 30 mg PO HS 06/28/20 08/03/20 History gabapentin 300 mg PO BID 06/28/20 08/03/20 History memantine 10 mg PO BID 06/28/20 08/03/20 History morphine 15 mg PO TID PRN 06/28/20 08/03/20 History spironolactone 25 mg PO BID 06/28/20 08/03/20 History diclofenac sodium 75 mg See Rx Instructions .ROUTE 07/02/20 08/03/20 Rx tablet,delayed release .COMPLEX #60 tablet buspirone 15 mg tablet 15 mg PO BID tab 07/04/20 08/03/20 History albuterol sulfate 90 mcg/actuation See Rx Instructions .ROUTE 07/27/20 08/03/20 Rx aerosol inhaler .COMPLEX PRN #8.5 g fluticasone 250 mcg-salmeterol 50 1 inh INHALATION BID #60 ea 07/27/20 08/03/20 Rx mcg/dose blistr powdr for inhalation Past Med/Surg History Medical History (Updated 08/03/20 @ 22:25 by Alicia Amaya MD) Cardiomyopathy EF 35-40% on 06/2018 echo Chronic back pain TO BILAT LEGS Chronic systolic heart failure Patient appears clinically stable he is not on a daily diuretic at this point time we will watch him in the perioperative period for volume shifts Chronic use of steroids Elevated hemidiaphragm GERD (gastroesophageal reflux disease) CONTROLLED Hypertension LABILE Kidney stones LBBB (left bundle branch block) "CHRONIC" PER CARDIO LBBB (left bundle branch block) Neuroforaminal stenosis of lumbar spine Obesity Osteoarthritis Restrictive airway disease Rheumatoid arthritis Rheumatoid arthritis SOB (shortness of breath) on exertion Spinal stenosis of lumbar region at multiple levels Surgical History History of colonoscopy History of lithotripsy History of lumbar fusion X 2 WITH HARDWARE History of total right knee replacement (~10/2019) Family History Mother Family hx of colon cancer Social History Smoking Status: Never smoker Second Hand Exposure: No; Hx Alcohol Use: No Hx Substance Use: No Preferred Language: Citizen Of [place] Communication Ability: Effective Visual Impairment: No Limitations Motor 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 Required: No Beliefs That Will Affect Care: None Current Living Situation: Significant Other Feels Safe at Home: Yes Safety Concerns: Feels Safe At This Time Assistive Devices: Glasses Review of Systems Review of Systems: REVIEW OF SYSTEMS: Constitutional: No fever, sweats or chills Eyes: No diplopia, no worsening or blurred vision ENT: normal hearing, no trouble swallowing Respiratory: No cough, sputum, dyspnea at rest or on exertion Cardiovascular: No chest pain, tightness or palpitations Abdomen: No pain, nausea, vomiting, diarrhea or constipation Musculoskeletal: (+) joint pain, calf pain, swelling Neurologic: (+) weakness, (-)numbness/tingling, or balance problems Psychiatric: No anxiety or depression Skin: No rash or itch Physical Exam Physical Exam: PHYSICAL EXAM: General: awake, alert, no apparent distress Head: Normocephalic, atraumatic ENT: PERRL, EOMI, no pharyngeal exudate, mucous membranes moist Neuro: AAO x 3, speech clear and appropriate, strength intact bilaterally 5/5 uppers, sensation intact and equal all upper extremities and dermatomes, no pronator drift. - Rectal tone intact, sensory to perineum intact, 4/5 strength to right and 3/5 left lower extremity, decreased dorsiflexion left side. Mild foot drop on left side. Bilateral SI joint pain with palpation, no spasm. Chest: equal rise and fall of the chest, no accessory muscle use, no heaves or thrills, Clear to auscultation, on room air, Cardiac: Regular rate and rhythm, telemetry reviewed, skin warm dry, cap refill <3 seconds, peripheral pulses +2 no JVD, no murmur, no edema GI: NABS x 4 quadrants, soft, nontender to palpation, no rebound, guarding or tenderness : Spontaneously voiding, no pain, no CVA tenderness, MSK: As above, pelvis stable no pain, abduction and adduction of lower extremity intact Psych: Normal mood and affect Skin: no rash or erythema Results & Data Results & Data ([facility]) Vital Signs (Past 12 Hours) Vital Signs Temp Pulse Resp BP Pulse Ox 08/03/20 17:30 83 16 111/75 98 08/03/20 17:00 82 17 113/76 91 08/03/20 16:00 86 15 135/82 97 08/03/20 15:30 82 12 122/63 97 08/03/20 15:08 90 22 128/82 91 08/03/20 14:00 84 22 159/84 H 96 08/03/20 13:32 65 16 142/79 H 96 08/03/20 13:00 63 13 115/70 92 08/03/20 12:45 93 08/03/20 11:13 36.5 C 90 16 108/68 96 Diagnostic Findings MR lumbar spine wo con CLINICAL HISTORY: 59 years-old Male with leg weakness. Acute back pain with lower extremity weakness COMPARISON: CT lumbar spine of same day, MRI lumbar spine 09/09/2017 TECHNIQUE: Multiplanar, multi sequence MRI of the lumbar spine was performed without intravenous contrast. FINDINGS: Lumbar levoscoliosis of approximately 31 degrees measured from L2-L5. Prior laminectomy with posterior interbody yeyo and screw fusion and discectomy at L4- S1. Artifact from the hardware limits evaluation of these levels. Trace fluid within the L3-L4 disc space posteriorly is likely on a degenerative basis. Moderate asymmetric atrophy of the right psoas musculature. Mild adjacent nonspecific edema. Multilevel central canal stenosis of the lower thoracic spine. T12-L1: Severe intervertebral disc space narrowing with spondylitic spurring, posterior disc osteophyte complex and advanced facet arthrosis. AP dimension of the thecal sac measures 8 mm. Mild central canal stenosis with severe left and mild right neural foraminal narrowing. Findings have progressed from comparison. L1-L2: Moderate intervertebral disc space narrowing with tiny posterior annular disc bulge. Ligamentum flavum thickening with moderate facet arthrosis. Central canal and neuroforamina are patent. L2-L3: Progressively worsened severe intervertebral disc space narrowing. Spondylitic spurring with posterior disc osteophyte complex. Ligamentum flavum thickening with severe facet arthrosis and small bilateral facet effusions. Severe central canal stenosis, AP dimension of the thecal sac measuring 3.5 mm. Severe narrowing of the lateral recesses with moderate bilateral neuroforaminal narrowing. Findings have progressed from comparison. L3-L4: Severe intervertebral disc space narrowing with trace fluid within the posterior aspect of the disc space, likely on a degenerative basis. Spondylitic spurring with posterior disc osteophyte complex. Ligamentum flavum thickening with severe facet arthrosis. Central canal is patent. There is narrowing of the right greater than left lateral recesses. Mild to moderate left with severe right neuroforaminal narrowing. L4-L5: Discectomy changes with spondylitic spurring and facet arthrosis. Central canal is patent. The neuroforamen are not well visualized secondary to artifact from the hardware. There appears to be at least moderate right neuroforaminal stenosis and at least mild left. L5-S1: Posterior fusion with discectomy. 4 mm anterolisthesis is unchanged. Circumferential annular disc bulge with facet arthrosis. Central canal is patent. Limited visualization of the neuroforamina. There is suggestion of mild bilateral neuroforaminal stenosis. IMPRESSION: 1. 30 degrees lumbar levoscoliosis has substantially progressed from the 2018 c omparison. 2. Prior laminectomy with posterior interbody yeyo and screw fusion and discectomy at L4-S1. 3. Severe intervertebral disc space narrowing at L2-L3 with discogenic degeneration resulting in moderate bilateral neuroforaminal stenosis with severe central canal narrowing. 4. Trace fluid within the posterior aspect of the L3-L4 disc space is likely on a degenerative basis. 5. No acute fracture or subluxation identified. CT lumbar spine wo con CT DOSE: 641.49 mGy.cm CLINICAL HISTORY: back pain, leg weakness TECHNIQUE: Helical images were acquired in transverse plane. Reformatted sagittal and coronal images were reviewed. A dose lowering technique was utilized adhering to the principles of ALARA. CONTRAST: No contrast was administered COMPARISON STUDY: MRI dated 09/09/2017 FINDINGS: L1-2 level: There is an 8 mm sclerotic L1 lesion likely representing a bone island. There is a minimal circumferential disc bulge. There is no significant spinal or foraminal stenosis L2-3 level: There is marked disc desiccation. There is a vacuum disc. There is a circumferential disc bulge. There is severe spinal stenosis. There is moderate right-sided foraminal narrowing L3-4 level: There is severe disc degeneration. There is gas within the disc. There are postlaminectomy changes. There is calcific debris within the right foramen. There is moderate to severe right-sided foraminal narrowing. The right L4 pedicle screw extends into the disc. L4-5 level: There are postsurgical changes of a discectomy and interbody fusion. There are postlaminectomy changes. There is no significant spinal stenosis. There is mild bilateral foraminal narrowing L5-S1 level: There are postsurgical changes of discectomy and interbody fusion. There are postlaminectomy changes. There is no significant spinal stenosis. There is mild right-sided foraminal narrowing. There are postsurgical changes of an L4-S1 posterior spinal fusion with pedicle screws and rods. IMPRESSION: 1. Postsurgical changes are prior L4-S1 spinal decompression and fusion. The right L4 pedicle screw extends into the L3-4 disc 2. Advanced multilevel spondylitic changes. 3. Severe L2-3 spinal stenosis 4. Multilevel foraminal narrowing SINGLE VIEW CHEST CLINICAL HISTORY: Right-sided chest wall pain. FINDINGS: An AP, portable, upright chest radiograph is compared to chest x-ray and chest CT dated 06/28/2020. The heart is enlarged. The pulmonary vasculature is noncongested there is chronic elevation of the right hemidiaphragm with bibasilar atelectasis. No airspace consolidation or large pleural effusion is identified. No pneumothorax is seen. The bony thorax is grossly intact. Degenerative change is noted in the shoulders. Fusion hardware is seen in the lower cervical spine. IMPRESSION: Cardiomegaly with no active disease in the chest. Medications Administered Lorazepam (Ativan) 1 mg in 2 mls @ 0.5 mls/min IV UD PRN PRN Reason: Anxiety Stop: 09/02/20 14:15 Last Admin: 08/03/20 14:23 Dose: 0.5 mls/min Documented by: [id number] Discontinued Medications Acetaminophen (Acetaminophen 325 Mg Tab) 650 mg PO NOW STA Stop: 08/03/20 11:56 Last Admin: 08/03/20 12:34 Dose: 650 mg Documented by: [id number] Fentanyl Citrate (Fentanyl Citrate 100 Mcg/2 Ml Vial) 50 mcg IV NOW STA Stop: 08/03/20 11:56 Last Admin: 08/03/20 12:33 Dose: 50 mcg Documented by: [id number] Fentanyl Citrate (Fentanyl Citrate 100 Mcg/2 Ml Vial) 75 mcg IV NOW STA Stop: 08/03/20 13:58 Last Admin: 08/03/20 14:06 Dose: 75 mcg Documented by: [id number] Hydromorphone HCl (Hydromorphone Inj 0.5 Mg/0.5 Ml Syr) 0.5 mg IV NOW STA Stop: 08/03/20 17:01 Last Admin: 08/03/20 17:12 Dose: 0.5 mg Documented by: [id number] Sodium Chloride (Nss 1000ml) 1,000 mls @ 999 mls/hr IV .Q1H1M WILLIAM Stop: 08/03/20 13:00 Last Infusion: 08/03/20 13:35 Dose: 0 mls/hr Documented by: [id number] Admin: 08/03/20 12:34 Dose: 999 mls/hr Documented by: [id number] Lidocaine (Lidocaine 5% 1 Patch) 1 patch TD NOW STA Stop: 08/03/20 11:56 Last Admin: 08/03/20 12:33 Dose: 1 patch Documented by: [id number] Methylprednisolone (Methylprednisolone 125 Mg/2 Ml Vial) 60 mg IV NOW STA Stop: 08/03/20 11:56 Last Admin: 08/03/20 12:33 Dose: 60 mg Documented by: [id number] Ondansetron HCl (Ondansetron Inj 2 Mg/Ml 2 Ml Vial) 4 mg IV NOW STA Stop: 08/03/20 11:56 Last Admin: 08/03/20 12:33 Dose: 4 mg Documented by: [id number] ECG Additional Comments: Normal sinus rhythm Left bundle branch block Abnormal ECG LBB present on old ECG's Code Status & VTE Plan Code Status CODE: FULL CODE VTE: Heparin 5000 subq tid VTE Prophylaxis Plan VTE Prophylaxis will be ordered: Yes Supervising Physician Co-Signing Physician Notes TRANSFORMER STOCK CLERK Supervision note: I have personally seen and examined the patient and discussed and verified the nguyen points of the history and physical along with the plan with BITA Carpenter with the following exceptions and/or additions: This patient is a 59-year-old male with a history of lumbar spinal stenosis and cervical spinal stenosis, nonischemic cardiomyopathy, HTN, LBBB, rheumatoid arthritis on chronic prednisone, moderate restrictive lung disease secondary to elevated right hemidiaphragm, who presents to the ER with worsening right sided back pain for the last week followed by fairly acute onset of bilateral left greater than right lower extremity weakness today that caused him to fall on the sidewalk and have to crawl to his truck. He has a left foot drop on examination as well as some diminished sensation in the left leg upon arrival and was found to have changes on MRI of lumbar spine and CT spine as noted above. No bowel or bladder symptoms, no saddle anesthesia. History and ROS reviewed as above Vitals reviewed Gen: AAOx3, NAD HEENT: Anicteric sclerae, EOMI CV: RRR no mgr nl S1S2 Pulm: CTAB no wcr Abd: +BS soft NT ND no masses or hernias Ext: No edema, 2+ DP pulses, positive tenderness to palpation over right posterior rib cage around the T10 level Skin: No rashes, warm/dry Neuro: Left lower extremity with 1/5 strength with ankle dorsiflexion and great toe dorsiflexion, otherwise 4/5 strength throughout; right lower extremity with 4/5 strength throughout, upper extremities 5/5 throughout; sensation decreased to light touch throughout left leg from the knee on distally, DTRs unable to be obtained in the lower extremities and does have a history of total knee arthrosis plasty on the right; please refer to BITA's note as above for rectal exam and sensation in the perianal region being normal Laboratory values reviewed Imaging reviewed 59-year-old male here with fairly acute onset of bilateral lower extremity weakness with left sided foot drop and decreased sensation, with known severe lumbar spinal stenosis status post previous surgery, along with acute right thoracic back pain. -Bring in for urgent evaluation by orthopedic surgeon and inability to walk -Discussed care with orthopedic surgery on the phone Pain control as above Continue home medications otherwise as above PG Care Time/CCT Total # of Minutes Spent Total Time Spent with Patient: Total time spent is greater than 50% in coordination of care (as documented) at patient's floor/unit and/or counseling patient: Coding Level of Care Code 66566 Initial Inpt Care Lvl 3 Diagnoses Bilateral leg weakness R29.898 Back pain M54.5; G89.29 Back pain laterality: midline Back pain location: low back pain Chronicity: chronic Sciatica presence: unspecified whether sciatica present Neuroforaminal stenosis of lumbar spine M48.061 Cardiomyopathy, idiopathic I42.8 Restrictive airway disease J98.4 Chronic use of steroids DVT prophylaxis Z29.9 (1) Back pain Back pain laterality: midline Back pain location: low back pain Chronicity: chronic Sciatica presence: unspecified whether sciatica present Qualified Code(s): M54.5 - Low back pain; G89.29 - Other chronic pain
[2020-08-03] MEDS ORDERED: POLYETHYLENE (MIRALAX) 17 GM PACK PO PRN (19:55)
[2020-08-03] MEDS ORDERED: ONDANSETRON INJ 2 MG/ML 2 ML VIAL IV PRN (19:55)
[2020-08-03] MEDS ORDERED: ALBUTEROL HFA 8 GM INHALER INH PRN (19:55)
[2020-08-03] MEDS: MoRPHine SULFATE IR 15 MG TAB (IMMEDIATE RELEASE) PO PRN (20:29)
[2020-08-03] MEDS ORDERED: GABAPENTIN 300 MG CAP PO SCH (21:00)
--- NOTE | 2020-08-03 21:11 | Electrocardiogram Report ---
Test Reason : Blood Pressure : / mmHG Vent. Rate : 077 BPM Atrial Rate : 077 BPM P-R Int : 174 ms QRS Dur : 144 ms QT Int : 398 ms P-R-T Axes : 048 -26 017 degrees QTc Int : 450 ms Normal sinus rhythm Left bundle branch block Abnormal ECG When compared with ECG of 28-JUN-2020 11:28, No significant change was found Confirmed by Baljinder Sims ([id number]) on 08/03/2020 9:11:20 PM Referred By: Giuseppe Romero Confirmed By:Baljinder Sims
[2020-08-03] MEDS: HEPARIN SOD 5,000 UNIT/0.5 ML VIAL SQ SCH (21:16)
[2020-08-03] MEDS: LABETALOL HCL 100 MG TAB PO SCH (21:16)
[2020-08-03] MEDS: PANTOprazole 40 MG TAB PO SCH (21:16)
[2020-08-03] MEDS: MEMANTINE HCL 10 MG TAB PO SCH (21:16)
[2020-08-03] MEDS: SPIRONOLACTONE 25 MG TAB PO SCH (21:17)
[2020-08-03] MEDS: GABAPENTIN 300 MG CAP PO SCH (21:17)
[2020-08-03] MEDS: busPIRone 15 MG TAB PO SCH (21:17)
[2020-08-03] MEDS: MoRPHine SULFATE CR 15 MG TABCR PO SCH (21:18)
[2020-08-03] MEDS: DULoxetine HCL 30 MG CAP PO SCH (21:18)
[2020-08-03] MEDS: SACUBITRIL-VALSARTAN 97-103 MG TAB PO SCH (21:18)
[2020-08-03] MEDS ORDERED: LORazepam 1 MG/2 ML VIAL IV STA (21:40)
--- NOTE | 2020-08-03 23:37 | Magnetic Resonance Report ---
MRI OF THE THORACIC SPINE WITHOUT IV CONTRAST CLINICAL HISTORY: Thoracic radiculopathy. Lower extremity weakness. COMPARISON STUDY: MRI of the thoracic spine dated 08/04/2017. Chest CT dated 06/28/2020. TECHNIQUE: MRI of the thoracic spine is performed utilizing various T1 and T2-weighted sequences in t he axial and sagittal planes. IV contrast was not administered for this examination. The examination is compromised by motion artifact. FINDINGS: Vertebral body height and alignment are maintained throughout the thoracic spine. Marrow si gnal intensity is heterogeneous. Mild hyperkyphosis is observed. Anterior osteophytes are seen throug hout. A small hemangioma is noted in the body of T4. No destructive bony lesion is identified. 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 Degenerative disc desiccation and loss of height is seen throughout the thoracic spine. There is mi ld degenerative endplate edema seen at T6-T7, T7-T8, and T12-L1. Posterior disc bulges are seen at mo st thoracic levels. These are greatest from T5-T6 through T12-L1. There is at least mild central cayla l stenosis at T9-T10, T10-T11, T11-T12, and T12-L1. Left lateral disc bulges at T11-T12 and T12-L1 co ntribute to neural foraminal stenosis. There is significant bilateral neural foraminal stenosis also seen at T9-T10. The thoracic spinal cord is normal in morphology and signal intensity. The conus medu llaris terminates at the level of L1. There is mild fatty atrophy of the paraspinous musculature. The lung parenchyma is grossly unremarkable but not well evaluated by MRI. There is no pleural effusion. IMPRESSION: 1. Degenerative disc disease as above with multilevel posterior disc bulges and mild multilevel acqui red compromise of the central canal. 2. Postoperative change is partially imaged in the lower cervical spine and upper lumbar spine. 3. No destructive bony process is identified. 4. The thoracic spinal cord is normal in morphology and signal intensity. Electronically signed by: Mir Villalba M.D. 08/03/2020 11:35 PM
[2020-08-04] MEDS: HEPARIN SOD 5,000 UNIT/0.5 ML VIAL SQ SCH ×3 (05:46→20:54)
[2020-08-04] MEDS: ACETAMINOPHEN 325 MG TAB PO PRN ×3 (06:12→19:28)
[2020-08-04 07:36] LABS: Basophils # (auto) 0.01 K/uL (0-0.2); Basophils % (auto) 0.1 %; Eosinophils # (auto) 0.02 K/uL (0-0.5); Eosinophils % (auto) 0.2 %; Hematocrit (blood only) 34.7 % (42-52); Hemoglobin 11.3 g/dL (14.0-18.0); Immature Granulocytes # (auto) 0.02 K/uL (0.00-0.02); Immature Granulocytes % (auto) 0.2 %; Lymphocytes # (auto) 1.18 K/uL (1.2-3.4); Lymphocytes % (auto) 13.5 %; Mean Corpuscular Hgb Conc 32.6 g/dL (32-36); Mean Corpuscular Volume 95.3 fL (80-100); Mean Platelet Volume 9.4 fL (7.4-10.4); Monocytes # (auto) 0.92 K/uL (0.11-0.59); Monocytes % (auto) 10.5 %; Neutrophils # (auto) 6.62 K/uL (1.4-6.5); Neutrophils % (auto) 75.5 %; Platelet Count 267 K/uL (130-400); RDW Coefficient of Variation 12.8 % (11.5-14.5); RDW Standard Deviation 44.7 fL (36.4-46.3); Red Blood Count 3.64 M/uL (4.7-6.1); White Blood Count 8.77 K/uL (4.8-10.8)
[2020-08-04 07:44] LABS: Estimated Average Glucose 114 mg/dl; Hemoglobin A1C 5.6 % (4.5-5.6)
[2020-08-04] MEDS: SPIRONOLACTONE 25 MG TAB PO SCH ×2 (07:58→20:08)
[2020-08-04] MEDS: FLUTICASONE/VILANTEROL 200/25MCG 14 PUFFS/INHALER INH SCH (07:58)
[2020-08-04] MEDS: SACUBITRIL-VALSARTAN 97-103 MG TAB PO SCH ×2 (07:59→20:09)
[2020-08-04] MEDS: DOXAZosin MESYLATE 4 MG TAB PO SCH (07:59)
[2020-08-04] MEDS: GABAPENTIN 100 MG CAP PO SCH (07:59)
[2020-08-04] MEDS: predniSONE 5 MG TAB PO SCH (07:59)
[2020-08-04] MEDS: MoRPHine SULFATE CR 15 MG TABCR PO SCH ×2 (07:59→20:13)
[2020-08-04] MEDS: busPIRone 15 MG TAB PO SCH ×2 (07:59→20:08)
[2020-08-04] MEDS: PANTOprazole 40 MG TAB PO SCH ×2 (07:59→17:35)
[2020-08-04] MEDS: MEMANTINE HCL 10 MG TAB PO SCH ×2 (07:59→20:10)
[2020-08-04] MEDS: amLODIPine BESYLATE 5 MG TAB PO SCH (07:59)
[2020-08-04] MEDS: LABETALOL HCL 100 MG TAB PO SCH ×2 (07:59→20:54)
[2020-08-04 08:13] LABS: Calcium 8.7 mg/dl (8.5-10.1); Creatinine Clr Calc Pharmacy 85.3 ml/min; Est GFR (Non-African American) 87.2; Magnesium 2.4 mg/dl (1.8-2.4); Potassium 4.1 mmol/L (3.5-5.1)
[2020-08-04] MEDS: SODIUM CHLORIDE 0.9% 1000ML 1,000 ML IV SCH ×2 (08:26→20:14)
--- NOTE | 2020-08-04 11:53 | Orthopedic Consultation ---
Date of Consultation August 04, 2020 Assessment & Plan (1) Neuroforaminal stenosis of lumbar spine: Long discussion with this patient this morning regarding his imaging findings and clinical presentation. I suspect he is struggling with significant adjacent level disease. He would require decompression fusion L2-3 L3-4. We have removed the previous instrumentation and extend across these regions. This would at least stabilize the spine address the stenosis and hopefully with time again increase strength lower extremities. Risk benefits pros cons alternatives were outlined in detail. He is interested in surgery. I will arrange for surgery Thursday to ensure that the appropriate equipment is in the hospital available for use. Present on Admission?: Yes History of Present Illness Reason for Consultation: Bilateral leg weakness. Attending Physician: Nedra Arias MD History of Present Illness Is a very pleasant 59-year-old male who presents last evening to the emergency room with bilateral leg weakness. He had been experiencing a steady decline in function over the past several weeks but yesterday this culminated in the inability to ambulate. He was taken to emergency room underwent extensive work- up. It does demonstrate significant spinal stenosis adjacent level disease at L2-3 L3-4. He also describes discomfort at the right flank. Denies any significant pain in the lower extremities. He does describe some tingling in the left lower extremity and the onset of foot drop on the left. He did undergo lumbar decompression and fusion L4-L5 a little over a year ago with 's after. He had done well postoperatively. Allergies Allergy/AdvReac Type Severity Reaction Status Date / Time No Known Drug Allergies Allergy Verified 08/03/20 14:32 Home Medications Medication Instructions Recorded Confirmed Type amlodipine 5 mg PO QAM 03/24/18 08/03/20 History doxazosin 8 mg PO QAM 03/24/18 08/03/20 History gabapentin 100 mg PO QAM 03/24/18 08/03/20 History morphine 30 mg PO BID 03/24/18 08/03/20 History omeprazole 20 mg PO BID 03/24/18 08/03/20 History prednisone 5 mg PO QAM 03/24/18 08/03/20 History cyanocobalamin (vitamin B-12) 1,000 mcg PO QAM 07/21/19 08/03/20 History Entresto 1 tab PO BID 10/20/19 08/03/20 History labetalol 100 mg tablet 100 mg PO BID tab 11/04/19 08/03/20 History multivitamin 1 tab PO QAM 01/19/20 08/03/20 History amoxicillin 500 mg tablet 2,000 mg PO ONCE PRN #4 tab 01/26/20 08/03/20 Rx duloxetine 30 mg PO HS 06/28/20 08/03/20 History gabapentin 300 mg PO BID 06/28/20 08/03/20 History memantine 10 mg PO BID 06/28/20 08/03/20 History morphine 15 mg PO TID PRN 06/28/20 08/03/20 History spironolactone 25 mg PO BID 06/28/20 08/03/20 History diclofenac sodium 75 mg See Rx Instructions .ROUTE 07/02/20 08/03/20 Rx tablet,delayed release .COMPLEX #60 tablet buspirone 15 mg tablet 15 mg PO BID tab 07/04/20 08/03/20 History albuterol sulfate 90 mcg/actuation See Rx Instructions .ROUTE 07/27/20 08/03/20 Rx aerosol inhaler .COMPLEX PRN #8.5 g fluticasone 250 mcg-salmeterol 50 1 inh INHALATION BID #60 ea 07/27/20 08/03/20 Rx mcg/dose blistr powdr for inhalation Patient History Medical History (Updated 08/03/20 @ 22:25 by Alicia Amaya MD) Cardiomyopathy EF 35-40% on 06/2018 echo Chronic back pain TO BILAT LEGS Chronic systolic heart failure Patient appears clinically stable he is not on a daily diuretic at this point time we will watch him in the perioperative period for volume shifts Chronic use of steroids Elevated hemidiaphragm GERD (gastroesophageal reflux disease) CONTROLLED Hypertension LABILE Kidney stones LBBB (left bundle branch block) "CHRONIC" PER CARDIO LBBB (left bundle branch block) Neuroforaminal stenosis of lumbar spine Obesity Osteoarthritis Restrictive airway disease Rheumatoid arthritis Rheumatoid arthritis SOB (shortness of breath) on exertion Spinal stenosis of lumbar region at multiple levels Surgical History History of colonoscopy History of lithotripsy History of lumbar fusion X 2 WITH HARDWARE History of total right knee replacement (~10/2019) Family History Mother Family hx of colon cancer Social History Smoking Status: Never smoker Second Hand Exposure: No; Hx Alcohol Use: No Hx Substance Use: No Preferred Language: Gabonese Communication Ability: Effective Visual Impairment: No Limitations Structural Fitter Required: No Beliefs That Will Affect Care: None Current Living Situation: Significant Other Feels Safe at Home: Yes Safety Concerns: Feels Safe At This Time Assistive Devices: Walker Physical Exam Physical Exam: On exam he is alert and oriented. He does exhibit dense foot drop with dorsiflexion on the left. There is a 4/5 left extensor hallucis longus. Plantarflexion appears to be intact bilaterally. Quadriceps are 5/5 bilaterally. Sensory somewhat diminished on the left compared to the right to cold and light touch. Is negative logroll. No gross tension signs. There is some point tenderness palpation of the right flank along the 12th rib. There is no abnormal skin markings. Results & Data ([facility]) Vital Signs (Past 12 Hours) Vital Signs Temp Pulse Resp BP Pulse Ox 08/04/20 07:46 36.6 C 80 18 97/55 L 91
--- NOTE | 2020-08-04 12:41 | Hospitalist Progress Note ---
Date of Service August 04, 2020 Assessment & Plan (1) Neuroforaminal stenosis of lumbar spine: Aditya is a very pleasant 59-year-old gentleman with an appreciable history of degenerative disc disease (s/p multiple procedures and hardware placement) spinal stenosis, chronic back pain, cardiomyopathy, rheumatoid arthritis, and self-reported nephrolithiasis who presented to [facility] on 08/03 for evaluation of progressive ambulatory dysfunction and right-sided flank pain, subsequently found to have significant spinal stenosis on imaging at the level of L2-3 and L3-4. The pubic surgery has been consulted and is planning for fusion and decompression on 08/06. He remains hemodynamically stable and without findings concerning for cauda equina. Neuroforaminal Stenosis of Lumbar Spine -- with imaging findings demonstrating significant DDD and resultant cord compression at L2-3, L3-4 - Clinically manifesting as progressive ambulatory dysfunction alongside L5-S1 pattern of weakness (significant dorsiflexion limitation, foot drop on L side) - MRI - Spine upon arrival significant for the major new findings: - L2-L3: Progressively worsened DDD with severe central canal stenosis, moderate b/l neuroforaminal narrowing - L3-L4: Severe DDD with patent central canal but with mild-moderate right neuroforaminal narrowing - Orthopedics consulted (Dr. Robles), appreciate insight and recommendations: - Proceed with decompression/fusion of L2-3, L3-4 on 08/06 in AM - NPO at midnight 08/05 - Refrain from steroids at this time - Pain management as below - PT/OT consulted Flank Pain (right) -- likely secondary to neurogenic claudication - Analgesia (Tylenol, morphine p.o., morphine IV, Dilaudid) - Hold NSAIDs at this time - Topical therapy p.r.n. (heat/ice/lidocaine) - While likely secondary to neurogenic claudication in setting of significant DDD/stenosis, patient does have h/o nephrolithiasis - Proceed with UA Non-Ischemic Cardiomyopathy -- resolved per cardiology notes, 06/2020 - Last echocardiogram 06/2020: Normal biventricular function. LVEF 60-65%. Mild LVH. Paradoxical septal motion c/w LBBB. No valvular abnormalities. - Continue: Entresto, amlodipine, labetalol, Aldactone Restrictive Airway Disease -- mild - Likely related to scoliosis, chronic spinal changes, elevated right sissy- diaphragm - Albuterol inhaler PRN Chronic Use of Steroids - Continue oral steroids - Omeprazole for GI protection Code: Full code Dispo: Med/surg -- surgery AM 08/06 PPX: Hep SQ, PPI Diet: Low sodium, heart healthy -- NPO at midnight 08/06 at 0000 for procedure in AM (2) Central stenosis of spinal canal: (3) Back pain: (4) Bilateral leg weakness: (5) Kyphosis deformity of spine: (6) History of total right knee replacement: (7) Cardiomyopathy, idiopathic: (8) Chest pain: (9) Spinal stenosis of lumbar region at multiple levels: (10) Rheumatoid arthritis: (11) Restrictive airway disease: Admission and Anticipated Discharge Date Admission Date: August 03, 2020 Supervising Physician Co-Signing Physician Notes Resident Physician Supervision Note: I independently interviewed and examined the patient and verified the nguyen history and physical, reviewed labs and image studies, discussed the case with the resident Dr. Junior and agree with the findings and care plan. Subjective No acute events overnight. Patient seen at bedside this morning, reports that the pain is somewhat improved, but still ongoing. Most appreciable in his right flank region. Notes that when the most distressing part about what is going on is that he can freely move his left ankle when he tells it to. He denies any numbness or tingling going down either side, but does notes that his left lower extremity does feel "different and weird" compared to the right. He denies any bowel or bladder incontinence. Denies any numbness or tingling within his groin or buttock region. Endorses an appetitelooking forward to eating. History reviewed with patient, no additions at this time from H&P. No other concerns this morning. Review of Systems Review of Systems: As per HPI Physical Exam Constitutional: Well, but tired appearing 59-year-old gentleman who is lying back in his hospital bed, relaxed, upon my arrival. He converses freely and appears in mild distress secondary to his pain. Respiratory: Good respiratory effort with symmetric expansion of the chest. No use of accessory muscles. Lungs are clear to auscultation bilaterally without crackles or wheezes. Cardiovascular: Normal rate and regular rhythm. S1 and S2 are present without murmurs rubs or gallops. Musculoskeletal: There is no point tenderness along the cervical, thoracic, lumbar, or sacral spine. There is appreciable tenderness to palpation in the paralumbar spinal region, approximately 4 to 5 inches below the costovertebral angle. No chest wall deformities or masses appreciated at this location Strength: Patient does demonstrate equal hip flexion strength to 4 out of 5 bilaterally, knee flexion extension similarly 4-5 bilaterally, ankle dorsiflexion unachievable on the left, but 5 out of 5 on the right. Plantar flexion of the left ankle does reveal about 4- out of 5 strength on the left, 4+ out of 5 on the right. Patient was unable to dorsiflex his left great toe. Sensory: All sensation to light touch is grossly intact bilaterally, patient does note that his left side feels "different" compared to his right side. Reflexes: 1+ patellar reflex on the left, unable to achieve the reflex in the right secondary to TKA. No clonus bilaterally. Results & Data Results & Data ([facility]) Vital Signs (Past 12 Hours) Vital Signs Temp Pulse Pulse Resp BP BP Pulse Ox 08/04/20 07:46 36.6 C 80 18 97/55 L 91 08/03/20 23:17 36.7 C 94 H 18 102/62 90 Resident Activity Tracking Resident Involvement: Resident Care Provided Care Provided: Adult Hospital Medicine (1) Rheumatoid arthritis Rheumatoid arthritis location: unspecified site Rheumatoid factor presence: unspecified presence Qualified Code(s): M06.9 - Rheumatoid arthritis, unspecified (2) Back pain Back pain laterality: midline Back pain location: low back pain Chronicity: chronic Sciatica presence: unspecified whether sciatica present Qualified Code(s): M54.5 - Low back pain; G89.29 - Other chronic pain (3) Chest pain Chest pain type: unspecified Qualified Code(s): R07.9 - Chest pain, unspecified
[2020-08-04 14:51] LABS: Appearance Urine Clear (Clear); Bacteria Urine Automated Negative (Negative); Bilirubin Urine Negative (Negative); Blood Urine Negative (Negative); Cast Urine Automated 0 /lpf (0-5); Color Urine Yellow; Epithelial Cell Urine Auto 0-5 /lpf (0-5); Glucose Urine UA Negative (Negative); Ketones Urine Negative (Negative); Leukocyte Esterase Urine 1+ (Negative); Nitrite Urine Negative (Negative); Protein Urine Negative (Negative); RBC Urine Automated 0-4 /hpf (0-4); Specific Gravity Urine 1.012 (1.000-1.030); Urobilinogen Urine Negative (Negative); WBC Urine Automated 0 /hpf (0-5); pH Urine 6.5 (4.5-7.5)
[2020-08-04] MEDS: GABAPENTIN 300 MG CAP PO SCH ×2 (15:17→20:55)
[2020-08-04] MEDS: MoRPHine SULFATE IR 15 MG TAB (IMMEDIATE RELEASE) PO PRN (15:17)
--- NOTE | 2020-08-04 16:42 | Communication Note ---
Date of Service: August 04, 2020 Subjective: Called to the patient's room this afternoon regarding intermittent numbness in his right hand. Says that it has been going on and off throughout the whole day; was attributing it to the IV site. He says that he will normally get some numbness and tingling in his right hand, but primarily in his thumb, index, and middle fingerbut this is different, comes and goes, and generally feels like "I cannot feel my hand". It will then go away and completely resolved. No associated pain. His does add to the discussion, who notes that he will intermittently drop objects in his right handthis has been going on for several months now, and he has thus been forced to use his left hand more often. Says he has appreciated this weakness before (R sided physical exam strength discrepancy - see below) over months. He and his do report "I had a fusion surgery in my neck back in time". Objective: General: Alert and oriented. Appears in mild distress secondary to pain in his right flank. To previous exam the morning, unchanged. MSK/neurologic: No cognitive deficits appreciated grossly. No dysarthria. No aphasia. No observable facial droop. Patient tracks with her eyes appropriatelyEOMs appear grossly intact. Strength testing of the right upper extremity does reveal 4 out of 5 strength at the shoulders, elbows, and wrists with flexion and extension movements; the left side is grossly 5 out of 5. 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 Sensation appears grossly intact to light touch throughout both upper extremities, including hand. Tinel's on the right wrist does recreate numbness/tingling in the thumb and first finger per patient, but not in the other fingers like the numbness and tingling described above. Spurling testing did recreate a "shooting" pain, alongside the same numbness/tingling described in the HPI, all throughout his right arm; no pressure had to be applied to the neck to achieve this, patient was just put in a extended and laterally flexed neck position. Assessment and plan: Called to assess this 59-year-old male with notable history of rheumatoid arthritis and lumbar spinal stenosis at multiple levels, and patient report of previous cervical fusionlike surgery in the past, with on and off numbness in his right hand, subsequently found to have diminished strength on his right upper extremity; Spurling positive. Could not find records of cervical surgery. Based on this assessment and physical exam, do suspect that his symptoms (which are reproducible on exam) are likely representing chronic neurogenic claudication borne of the cervical spine. Low suspicion for VULNERABILITY RESEARCHER borne etiology (e.g., CVA) at this time. Lower suspicion for exclusively peripheral nerve cause, such as carpal tunnel -- although hthis may have component. Will discuss with Ortho and make them aware. Continue conservative management for now.
[2020-08-04] MEDS: DULoxetine HCL 30 MG CAP PO SCH (20:09)
[2020-08-04] MEDS: diazePAM 5 MG TABLET PO PRN (20:48)
[2020-08-04] MEDS: MoRPHine SULFATE 2 MG/ML CARP IV PRN (22:23)
[2020-08-05] MEDS: HEPARIN SOD 5,000 UNIT/0.5 ML VIAL SQ SCH ×3 (05:02→21:30)
[2020-08-05] MEDS: MoRPHine SULFATE 2 MG/ML CARP IV PRN (05:02)
[2020-08-05 06:13] LABS: Basophils # (auto) 0.02 K/uL (0-0.2); Basophils % (auto) 0.3 %; Eosinophils # (auto) 0.26 K/uL (0-0.5); Eosinophils % (auto) 4.1 %; Hematocrit (blood only) 33.4 % (42-52); Hemoglobin 10.9 g/dL (14.0-18.0); Immature Granulocytes # (auto) 0.02 K/uL (0.00-0.02); Immature Granulocytes % (auto) 0.3 %; Lymphocytes # (auto) 2.19 K/uL (1.2-3.4); Lymphocytes % (auto) 34.4 %; Mean Corpuscular Hemoglobin 31.3 pg (25-34); Mean Corpuscular Hgb Conc 32.6 g/dL (32-36); Mean Platelet Volume 9.6 fL (7.4-10.4); Monocytes # (auto) 0.64 K/uL (0.11-0.59); Monocytes % (auto) 10.1 %; Neutrophils # (auto) 3.23 K/uL (1.4-6.5); Neutrophils % (auto) 50.8 %; Platelet Count 257 K/uL (130-400); RDW Coefficient of Variation 13.3 % (11.5-14.5); Red Blood Count 3.48 M/uL (4.7-6.1); White Blood Count 6.36 K/uL (4.8-10.8)
[2020-08-05 06:41] LABS: BUN Creatinine Ratio 20.1 (10-20); Calcium 8.5 mg/dl (8.5-10.1); Est GFR (Non-African American) 92.3; Magnesium 2.2 mg/dl (1.8-2.4)
[2020-08-05] MEDS ORDERED: ACETAMINOPHEN 500 MG TAB PO SCH (06:45)
[2020-08-05] MEDS ORDERED: ACETAMINOPHEN 500 MG TAB PO STA (06:45)
[2020-08-05] MEDS ORDERED: MoRPHine SULFATE 4 MG/ML 1 ML CARP\\VIAL IV PRN (06:48)
[2020-08-05] MEDS ORDERED: SODIUM CHLORIDE 0.9% 1000ML 1,000 ML IV SCH (07:00)
[2020-08-05] MEDS: amLODIPine BESYLATE 5 MG TAB PO SCH (07:54)
[2020-08-05] MEDS: SACUBITRIL-VALSARTAN 97-103 MG TAB PO SCH ×2 (07:54→20:18)
[2020-08-05] MEDS: MoRPHine SULFATE CR 15 MG TABCR PO SCH ×2 (07:54→20:21)
[2020-08-05] MEDS: FLUTICASONE/VILANTEROL 200/25MCG 14 PUFFS/INHALER INH SCH (07:54)
[2020-08-05] MEDS: DOXAZosin MESYLATE 4 MG TAB PO SCH (07:54)
[2020-08-05] MEDS: predniSONE 5 MG TAB PO SCH (07:54)
[2020-08-05] MEDS: SPIRONOLACTONE 25 MG TAB PO SCH ×2 (07:54→20:17)
[2020-08-05] MEDS: MEMANTINE HCL 10 MG TAB PO SCH ×2 (07:54→20:18)
[2020-08-05] MEDS: busPIRone 15 MG TAB PO SCH ×2 (07:54→20:18)
[2020-08-05] MEDS: LABETALOL HCL 100 MG TAB PO SCH ×2 (07:54→20:18)
[2020-08-05] MEDS: PANTOprazole 40 MG TAB PO SCH ×2 (07:54→18:03)
[2020-08-05] MEDS: GABAPENTIN 100 MG CAP PO SCH (07:55)
[2020-08-05] MEDS: SODIUM CHLORIDE 0.9% 1000ML 1,000 ML IV SCH ×2 (09:48→21:49)
--- NOTE | 2020-08-05 10:03 | Hospitalist Progress Note ---
Date of Service August 05, 2020 Assessment & Plan (1) Neuroforaminal stenosis of lumbar spine: Aditya is a very pleasant 59-year-old gentleman with an appreciable history of degenerative disc disease (s/p multiple procedures and hardware placement) spinal stenosis, chronic back pain, cardiomyopathy, rheumatoid arthritis, and self-reported nephrolithiasis who presented to [facility] on 08/03 for evaluation of progressive ambulatory dysfunction and right-sided flank pain, subsequently found to have significant spinal stenosis on imaging at the level of L2-3 and L3-4. The pubic surgery has been consulted and is planning for fusion and decompression on 08/06. He remains hemodynamically stable and without findings concerning for cauda equina. Neuroforaminal Stenosis of Lumbar Spine -- with imaging findings demonstrating significant DDD and resultant cord compression at L2-3, L3-4 - Clinically manifesting as progressive ambulatory dysfunction alongside L5-S1 pattern of weakness (now involving both plantar and dorsiflexion movements at an kle) - MRI - Spine upon arrival significant for the major new findings: - L2-L3: Progressively worsened DDD with severe central canal stenosis, moderate b/l neuroforaminal narrowing - L3-L4: Severe DDD with patent central canal but with mild-moderate right neuroforaminal narrowing - Orthopedics consulted (Dr. Robles), appreciate insight and recommendations: - Proceed with decompression/fusion of L2-3, L3-4 on 08/06 in AM - NPO at midnight 08/05 - Refrain from steroids at this time - Pain management as below - PT/OT consulted Flank Pain (right) -- likely secondary to neurogenic claudication, reproducible on exam - Analgesia (Tylenol, morphine p.o., morphine IV, Dilaudid) - Hold NSAIDs at this time - Topical therapy p.r.n. (heat/ice/lidocaine) - While likely secondary to neurogenic claudication in setting of significant DDD/stenosis, patient does have h/o nephrolithiasis - UA without significant findings Non-Ischemic Cardiomyopathy -- resolved per cardiology notes, 06/2020 - Last echocardiogram 06/2020: Normal biventricular function. LVEF 60-65%. Mild LVH. Paradoxical septal motion c/w LBBB. No valvular abnormalities. - Continue: Entresto, amlodipine, labetalol, Aldactone Restrictive Airway Disease -- mild - Likely related to scoliosis, chronic spinal changes, elevated right sissy- diaphragm - Breathing easy while here; VSS, no O2 requirement - Albuterol inhaler PRN Rheumatoid arthritis - Chronic Use of Steroids - Continue oral steroids - on 5mgs (stress dose steroid not required since chronic dose <20mgs) - Omeprazole for GI protection Code: Full code Dispo: Med/surg -- surgery AM 08/06 PPX: Hep SQ, PPI Diet: Low sodium, heart healthy -- NPO at midnight 08/06 at 0000 for procedure in AM (2) Central stenosis of spinal canal: (3) Back pain: (4) Bilateral leg weakness: (5) Kyphosis deformity of spine: (6) History of total right knee replacement: (7) Cardiomyopathy, idiopathic: (8) Chest pain: (9) Spinal stenosis of lumbar region at multiple levels: (10) Rheumatoid arthritis: (11) Restrictive airway disease: Admission and Anticipated Discharge Date Admission Date: August 03, 2020 Supervising Physician Co-Signing Physician Notes Resident Physician Supervision Note: I independently interviewed and examined the patient and verified the nguyen history and physical, reviewed labs and image studies, discussed the case with the resident Dr. Junior and agree with the findings and care plan. Subjective Overnight, the patient did report that he developed sudden onset pain in his left foot, where the weakness has been ongoing. He said that this resolved after given analgesia. He said that this was new for himhe did not experience this before. Thankfully, it is normal in his leg experience any more pain in that foot than this morning. He also does notice that his left ankle is more week yesterday, he was able plantarflex, he notes that he is unable to do this as well anymore. No new sensory changes Says that the right hand numbness/tingling has thankfully gone awayno recurrences since yesterday Says that his pain continues to be a 7-8 out of 10. Says that the IV morphine helps the most. Okay appetite. Anxious about everything that is going on, does report having a very good support system at home to his family. No chest pain or shortness of breath this morning Review of Systems Review of Systems: as per HPI Physical Exam Constitutional: Overall, well-appearing 59-year-old gentleman who is lying back in his hospital bed watching TV upon my arrival. He converses freely, with mild distress secondary to his pain. Fully alert and oriented. Respiratory: Good respiratory effort with symmetric expansion of the chest. Lungs are clear to auscultation bilaterally without crackles or wheezes. Cardiovascular: Normal rate and regular rhythm, S1 and S2 are present without murmurs rubs or gallops. Gastrointestinal (Abdomen): Abdomen soft, nontender, nondistended. Continues to be tenderness to palpation several inches below the right CVA/flank area. Generally speaking, does seem to be in the paralumbar region. No point tenderness along the spine. Compared to yesterday's exam, unchanged. Musculoskeletal: Observation: The right and left lower extremities do appear well-perfused Strength: When compared to the right ankle, the left ankle is now minimally able to plantarflexstrength is likely 1 out of 5. Right ankle strength 5 out of 5. Patient is unable to dorsiflex his left ankle. He is still able to minimally wiggle his toes on his left side. Knee strength on the left approximately 4 out of 5, when compared to the right which is 5 out of 5. Hip strength on the left similarly around 4-5 out of 5. Sensation: Sensation to light touch is grossly intact throughout both lower extremities. Results & Data Results & Data ([facility]) Vital Signs (Past 12 Hours) Vital Signs Temp Pulse Resp BP BP Pulse Ox 08/05/20 07:00 36.5 C 65 20 130/65 94 08/04/20 23:28 36.5 C 68 18 109/71 92 Resident Activity Tracking Resident Involvement: Resident Care Provided Care Provided: Adult Hospital Medicine (1) Rheumatoid arthritis Rheumatoid arthritis location: unspecified site Rheumatoid factor presence: unspecified presence Qualified Code(s): M06.9 - Rheumatoid arthritis, unspecified (2) Back pain Back pain laterality: midline Back pain location: low back pain Chronicity: chronic Sciatica presence: unspecified whether sciatica present Qualified Code(s): M54.5 - Low back pain; G89.29 - Other chronic pain (3) Chest pain Chest pain type: unspecified Qualified Code(s): R07.9 - Chest pain, unspecified
--- NOTE | 2020-08-05 10:45 | Orthopedic Progress Note ---
Date of Service August 05, 2020 Assessment & Plan (1) Spinal stenosis of lumbar region at multiple levels: Admission and Anticipated Discharge Date Admission Date: August 03, 2020 As again I reviewed with the patient his MRI findings and clinical presentation. In light of his dramatic decline over the past several days and recommending urgent decompression fusion. We have arranged for surgery tomorrow. We will have the appropriate equipment in order to address the instrumentation at the previous level and extend the fusion L2-3 L3-4. He was made n.p.o. after midnight. Subjective Patient still having some back pain despite bedrest. He notes significant weakness in the lower extremities when he tries to stand. He feels it is modestly progressed since yesterday. Physical Exam Physical Exam: On exam he does have marked deficits to left dorsiflexion now extensor hallucis longus. Plantar flexion intact. Quadriceps intact. Sensory somewhat diminished on the left compared to the right. He does have some weakness to testing the right upper extremity. He states this has been present for some time. He had episode of numbness yesterday involving the right upper extremity. This is essentially resolved. Results & Data ([facility]) Vital Signs (Past 12 Hours) Vital Signs Temp Pulse Resp BP BP Pulse Ox 08/05/20 07:00 36.5 C 65 20 130/65 94 08/04/20 23:28 36.5 C 68 18 109/71 92
[2020-08-05] MEDS: ACETAMINOPHEN 500 MG TAB PO SCH ×2 (13:36→21:30)
[2020-08-05] MEDS: GABAPENTIN 300 MG CAP PO SCH ×2 (13:36→21:30)
[2020-08-05] MEDS: MoRPHine SULFATE IR 15 MG TAB (IMMEDIATE RELEASE) PO PRN (15:22)
[2020-08-05] MEDS: MoRPHine SULFATE 4 MG/ML 1 ML CARP\\VIAL IV PRN ×2 (18:03→21:29)
[2020-08-05] MEDS: diazePAM 5 MG TABLET PO PRN (19:38)
[2020-08-05] MEDS: DULoxetine HCL 30 MG CAP PO SCH (20:18)
[2020-08-06] MEDS: MoRPHine SULFATE 4 MG/ML 1 ML CARP\\VIAL IV PRN ×3 (03:43→10:43)
[2020-08-06] MEDS: ACETAMINOPHEN 500 MG TAB PO SCH ×3 (05:30→21:55)
[2020-08-06 06:21] LABS: Basophils # (auto) 0.02 K/uL (0-0.2); Basophils % (auto) 0.3 %; Eosinophils # (auto) 0.32 K/uL (0-0.5); Hematocrit (blood only) 32.9 % (42-52); Hemoglobin 10.7 g/dL (14.0-18.0); Immature Granulocytes # (auto) 0.02 K/uL (0.00-0.02); Immature Granulocytes % (auto) 0.3 %; Lymphocytes # (auto) 2.25 K/uL (1.2-3.4); Lymphocytes % (auto) 35.3 %; Mean Corpuscular Hemoglobin 31.3 pg (25-34); Mean Corpuscular Hgb Conc 32.5 g/dL (32-36); Mean Corpuscular Volume 96.2 fL (80-100); Mean Platelet Volume 9.6 fL (7.4-10.4); Monocytes % (auto) 9.4 %; Neutrophils # (auto) 3.17 K/uL (1.4-6.5); Neutrophils % (auto) 49.7 %; Platelet Count 248 K/uL (130-400); RDW Coefficient of Variation 13.1 % (11.5-14.5); RDW Standard Deviation 45.5 fL (36.4-46.3); Red Blood Count 3.42 M/uL (4.7-6.1); White Blood Count 6.38 K/uL (4.8-10.8)
--- NOTE | 2020-08-06 06:47 | Hospitalist Progress Note ---
Date of Service August 06, 2020 Assessment & Plan (1) Neuroforaminal stenosis of lumbar spine: Aditya Moses is a 59 year old male w/ hx of spinal stenosis, cardiomyopathy, and rheumatoid arthritis who presented on 08/03 for ambulatory dysfunction secondary to severe spinal stenosis and R flank pain. 08/06 spinal fusion/decompression surgery. lumbar spinal stenosis - main pathology at L2-L3. Some issues w/ L3-L4 as well. - symptoms not suggestive of cauda equina. - s/p fusion/decompression surgery 08/06 - Tylenol, oxycodone, and dilaudid prn for pain R flank pain - location mostly at iliac, but general area also includes flank. no dysuria. - most likely secondary to neurogenic claudication. less likely from nephrolithiasis. UA neg for blood. anemia - Hb stable 12.3->11.3->10.9->10.7. follow cbc. hypocalcemia - Ca 7.9L, 8.1 corrected. follow bmp, consider repletion if worsens non ischemic cardiomyopathy - continue home meds rheumatoid arthritis - on chronic prednisone 5 mg PO HTN - continue spironolactone 25 PO BID. amlodipine 5 PO qam. Code: Full code Dispo: Med/surg PPX: Hep SQ currently held s/p surgery. SCDs. PPI. FENGI: Low sodium, HH. NSS 100/hr (2) Central stenosis of spinal canal: (3) Back pain: (4) Bilateral leg weakness: (5) Kyphosis deformity of spine: (6) History of total right knee replacement: (7) Cardiomyopathy, idiopathic: (8) Chest pain: (9) Spinal stenosis of lumbar region at multiple levels: (10) Rheumatoid arthritis: (11) Restrictive airway disease: (12) Hypocalcemia: (13) Anemia: Admission and Anticipated Discharge Date Admission Date: August 03, 2020 Supervising Physician Co-Signing Physician Notes I personally examined the patient and verified all nguyen points of history and e xam, discussed case, and agree with decision making with Dr Brown. Patient seen postop, having a decent amount of pain, but nursing was just about to get him pain medication. As needed regimen reviewed, multiple options are available. In general he is awake and alert pleasant no distress but does appear a little bit uncomfortable. HEENT normocephalic atraumatic mucous membranes are moist. Breathing unlabored no accessory muscle use good effort. Skin shows no rashes no pallor or icterus. Neuro shows no focal deficits. Spinal stenosisnow postop, currently pain control, rehab, PT/OT eval and treat. Appreciate Ortho input. Otherwise as above, pharmacologic DVT prophylaxis on hold for now, SCDs have been ordered Subjective 8/10 lower back pain, worse on R. No radiation down leg. No numb/tingling down leg. No incontinence or saddle anesthesia. Review of Systems Review of Systems: Constitutional: Denies fever, chills, Eyes: Denies blurry vision Cardiovascular: Denies chest pain Respiratory: Denies shortness of breath Gastrointestinal: Denies abdominal pain, nausea, vomiting, constipation, diarrhea Genitourinary: Denies urinary symptoms including dysuria Musculoskeletal: + weakness, unable to walk. Legs gave out since AM of 08/03 Neurological: Denies numbness, tingling. Mild MCDERMOTT, now new Physical Exam Physical Exam: General: Grossly A&O. NAD. Cooperative. HEENT: Atraumatic, normocephalic. Pulm: CTAB. -wheezes, -rales, -rhonchi. No respiratory distress. Cardiac: RRR, -mrg. Trace BLE Abdominal: Nontender, nondistended, soft. Back. No midline spinal ttp. Tender at lower R back near iliac crest. MSK: Altered sensation at LLE below knee. Neg SLR bilaterally. Decreased motor strength at L foot in all directions. Bilat lower leg strength intact. Results & Data Results & Data ([facility]) Vital Signs (Past 12 Hours) Vital Signs Temp Pulse Resp BP Pulse Ox 08/05/20 23:02 36.8 C 72 18 117/66 95 Diagnostic Findings 08/03 mri l spine 1. 30 degrees lumbar levoscoliosis has substantially progressed from the 2018 comparison. 2. Prior laminectomy with posterior interbody yeyo and screw fusion and discectomy at L4-S1. 3. Severe intervertebral disc space narrowing at L2-L3 with discogenic dege neration resulting in moderate bilateral neuroforaminal stenosis with severe central canal narrowing. 4. Trace fluid within the posterior aspect of the L3-L4 disc space is likely on a degenerative basis. 08/03 ct l spine 1. Postsurgical changes are prior L4-S1 spinal decompression and fusion. The right L4 pedicle screw extends into the L3-4 disc 2. Advanced multilevel spondylitic changes. 3. Severe L2-3 spinal stenosis 4. Multilevel foraminal narrowing Resident Activity Tracking Resident Involvement: Resident Care Provided Care Provided: Adult Hospital Medicine (1) Rheumatoid arthritis Rheumatoid arthritis location: unspecified site Rheumatoid factor presence: unspecified presence Qualified Code(s): M06.9 - Rheumatoid arthritis, unspecifi ed (2) Back pain Back pain laterality: midline Back pain location: low back pain Chronicity: chronic Sciatica presence: unspecified whether sciatica present Qualified Code(s): M54.5 - Low back pain; G89.29 - Other chronic pain (3) Chest pain Chest pain type: unspecified Qualified Code(s): R07.9 - Chest pain, unspecified
[2020-08-06 06:50] LABS: BUN Creatinine Ratio 18.6 (10-20); Calcium 7.9 mg/dl (8.5-10.1); Creatinine Clr Calc Pharmacy 94.3 ml/min; Magnesium 2.1 mg/dl (1.8-2.4); Potassium 3.9 mmol/L (3.5-5.1)
[2020-08-06] MEDS: FLUTICASONE/VILANTEROL 200/25MCG 14 PUFFS/INHALER INH SCH (08:14)
[2020-08-06] MEDS: SPIRONOLACTONE 25 MG TAB PO SCH ×2 (08:15→20:39)
[2020-08-06] MEDS: DOXAZosin MESYLATE 4 MG TAB PO SCH (08:15)
[2020-08-06] MEDS: busPIRone 15 MG TAB PO SCH ×2 (08:15→20:38)
[2020-08-06] MEDS: SACUBITRIL-VALSARTAN 97-103 MG TAB PO SCH ×2 (08:16→20:38)
[2020-08-06] MEDS: amLODIPine BESYLATE 5 MG TAB PO SCH (08:17)
[2020-08-06] MEDS: LABETALOL HCL 100 MG TAB PO SCH ×2 (08:17→20:39)
[2020-08-06] MEDS: GABAPENTIN 100 MG CAP PO SCH (08:17)
[2020-08-06] MEDS: PANTOprazole 40 MG TAB PO SCH ×2 (08:18→20:42)
[2020-08-06] MEDS: MEMANTINE HCL 10 MG TAB PO SCH ×2 (08:18→20:41)
[2020-08-06] MEDS: MoRPHine SULFATE CR 15 MG TABCR PO SCH ×2 (08:18→20:47)
[2020-08-06] MEDS: predniSONE 5 MG TAB PO SCH (08:18)
--- NOTE | 2020-08-06 08:57 | Anesthesiology Consultation ---
Date of Service August 06, 2020 Assessment & Plan (1) Encounter for pre-operative examination: Chart Review Chart Review: order entry technician initiated History Surgery Operation Date: 08/06/20 15:05 Proposed Procedures p L2-L4 Decompression Fusion, Removal Hardware L4-S1 - Myles Robles DO Height/Weight Height: 5 ft 4 in Weight: 93.8 kg Allergies Allergy/AdvReac Type Severity Reaction Status Date / Time No Known Drug Allergies Allergy Verified 08/03/20 14:32 Medications Home Medications Medication Instructions Recorded Confirmed Last Taken amlodipine 5 mg PO QAM 03/24/18 08/03/20 08/03/20 doxazosin 8 mg PO QAM 03/24/18 08/03/20 08/03/20 gabapentin 100 mg PO QAM 03/24/18 08/03/20 08/03/20 morphine 30 mg PO BID 03/24/18 08/03/20 08/03/20 omeprazole 20 mg PO BID 03/24/18 08/03/20 08/03/20 prednisone 5 mg PO QAM 03/24/18 08/03/20 08/03/20 cyanocobalamin (vitamin B-12) 1,000 mcg PO QAM 07/21/19 08/03/20 08/03/20 Entresto 1 tab PO BID 10/20/19 08/03/20 08/03/20 labetalol 100 mg tablet 100 mg PO BID tab 11/04/19 08/03/20 08/03/20 multivitamin 1 tab PO QAM 01/19/20 08/03/20 08/03/20 amoxicillin 500 mg tablet 2,000 mg PO ONCE PRN #4 tab 01/26/20 08/03/20 Unknown duloxetine 30 mg PO HS 06/28/20 08/03/20 08/02/20 gabapentin 300 mg PO BID 06/28/20 08/03/20 08/03/20 memantine 10 mg PO BID 06/28/20 08/03/20 08/03/20 morphine 15 mg PO TID PRN 06/28/20 08/03/20 08/03/20 10:00 spironolactone 25 mg PO BID 06/28/20 08/03/20 08/03/20 diclofenac sodium 75 mg See Rx Instructions .ROUTE 07/02/20 08/03/20 08/03/20 tablet,delayed release .COMPLEX #60 tablet buspirone 15 mg tablet 15 mg PO BID tab 07/04/20 08/03/20 08/03/20 albuterol sulfate 90 mcg/actuation See Rx Instructions .ROUTE 07/27/20 08/03/20 Unknown aerosol inhaler .COMPLEX PRN #8.5 g fluticasone 250 mcg-salmeterol 50 1 inh INHALATION BID #60 ea 07/27/20 08/03/20 08/03/20 mcg/dose blistr powdr for inhalation Active Medications Generic Name Dose Route Start Last Admin Trade Name Freq PRN Reason Stop Dose Admin Acetaminophen 1,000 mg 08/05/20 14:00 08/06/20 05:30 Acetaminophen 500 Mg Tab PO 09/04/20 13:59 Not Given Q8 WILLIAM Amlodipine Besylate 5 mg 08/04/20 09:00 08/06/20 08:17 Amlodipine Besylate 5 Mg Tab PO 09/03/20 08:59 5 mg QAM WILLIAM Administration Buspirone HCl 15 mg 08/03/20 21:00 08/06/20 08:15 Buspirone 15 Mg Tab PO 09/02/20 20:59 Not Given BID WILLIAM Diazepam 5 mg 08/03/20 21:41 08/05/20 19:38 Diazepam 5 Mg Tablet PO 09/02/20 21:40 5 mg DAILY PRN Administration Anxiety Doxazosin Mesylate 8 mg 08/04/20 09:00 08/06/20 08:15 Doxazosin Mesylate 4 Mg Tab PO 09/03/20 08:59 8 mg QAM WILLIAM Administration Duloxetine HCl 30 mg 08/03/20 21:00 08/05/20 20:18 Duloxetine Hcl 30 Mg Cap PO 09/02/20 20:59 30 mg HS WILLIAM Administration Fluticasone/Vilanterol 1 puffs 08/04/20 09:00 08/06/20 08:14 Fluticasone/Vilanterol 200/25mcg 14 Puffs/Inhaler INH 09/03/20 08:59 1 puffs DAILY WILLIAM Administration Protocol Gabapentin 100 mg 08/04/20 09:00 08/06/20 08:17 Gabapentin 100 Mg Cap PO 09/03/20 08:59 Not Given QAM WILLIAM Gabapentin 300 mg 08/03/20 22:00 08/05/20 21:30 Gabapentin 300 Mg Cap PO 09/02/20 21:59 300 mg 1400,2200 WILLIAM Administration Heparin Sodium (Porcine) 5,000 units 08/03/20 22:00 08/05/20 21:30 Heparin Sod 5,000 Unit/0.5 Ml Vial SQ 09/02/20 21:59 5,000 units Q8 WILLIAM Administration Sodium Chloride 1,000 mls @ 80 mls/hr 08/04/20 08:15 08/05/20 21:49 Nss 1000ml IV 09/03/20 08:14 80 mls/hr .[id number] WILLIAM Administration Labetalol HCl 100 mg 08/03/20 21:00 08/06/20 08:17 Labetalol Hcl 100 Mg Tab PO 09/02/20 20:59 100 mg BID WILLIAM Administration Memantine 10 mg 08/03/20 21:00 08/06/20 08:18 Memantine Hcl 10 Mg Tab PO 09/02/20 20:59 Not Given BID WILLIAM Morphine Sulfate 15 mg 08/03/20 19:55 08/05/20 15:22 Morphine Sulfate Ir 15 Mg Tab (Immediate Release) PO 08/17/20 19:54 15 mg TID PRN Administration pain Morphine Sulfate 30 mg 08/03/20 21:00 08/06/20 08:18 Morphine Sulfate Cr 15 Mg Tabcr PO 08/17/20 20:59 Not Given BID WILLIAM Morphine Sulfate 2 mg 08/05/20 11:00 08/06/20 08:01 Morphine Sulfate 4 Mg/Ml 1 Ml Carp\\Vial IV 08/17/20 10:59 2 mg Q2H PRN Administration severe pain not controlled Pantoprazole Sodium 40 mg 08/03/20 21:00 08/06/20 08:18 Pantoprazole 40 Mg Tab PO 09/02/20 20:59 Not Given BID [facility] Protocol Prednisone 5 mg 08/04/20 09:00 08/06/20 08:18 Prednisone 5 Mg Tab PO 09/03/20 08:59 Not Given QAM WILLIAM Sacubitril/Valsartan 1 tab 08/03/20 21:00 08/06/20 08:16 Sacubitril-Valsartan 97-103 Mg Tab PO 09/02/20 20:59 1 tab BID WILLIAM Administration Spironolactone 25 mg 08/03/20 21:00 08/06/20 08:15 Spironolactone 25 Mg Tab PO 09/02/20 20:59 Not Given BID WILLIAM Past Medical History Medical History Cardiomyopathy EF 35-40% on 06/2018 echo Chronic back pain TO BILAT LEGS Chronic systolic heart failure Patient appears clinically stable he is not on a daily diuretic at this point time we will watch him in the perioperative period for volume shifts Chronic use of steroids Elevated hemidiaphragm GERD (gastroesophageal reflux disease) CONTROLLED Hypertension LABILE Kidney stones LBBB (left bundle branch block) "CHRONIC" PER CARDIO LBBB (left bundle branch block) Neuroforaminal stenosis of lumbar spine Obesity Osteoarthritis Restrictive airway disease Rheumatoid arthritis Rheumatoid arthritis SOB (shortness of breath) on exertion Spinal stenosis of lumbar region at multiple levels Past Family History Family History Mother Family hx of colon cancer Past Surgical History Surgical History History of colonoscopy History of lithotripsy History of lumbar fusion X 2 WITH HARDWARE History of total right knee replacement (~10/2019) Social History Smoking Status: Never smoker Hx Alcohol Use: No Hx Substance Use: No substance use type: prescription drug Physical Exam Vital Signs Last Vital Signs Temp 98.6 F 08/06/20 07:00 Pulse 68 08/06/20 07:00 Resp 16 08/06/20 07:00 BP 135/79 08/06/20 07:00 Pulse Ox 95 08/06/20 07:00 Testing Laboratory Results 08/06/20 05:43 08/06/20 05:43 PT 9.7 Seconds (9.0-12.0) 08/03/20 12:13 INR 1.0 (0.9-1.1) 08/03/20 12:13 Hemoglobin A1c 5.6 % (4.5-5.6) 08/04/20 07:22 Urine Color Yellow 08/04/20 14:15 Urine Appearance Clear (Clear) 08/04/20 14:15 Urine pH 6.5 (4.5-7.5) 08/04/20 14:15 Ur Specific [place] 1.012 (1.000-1.030) 08/04/20 14:15 Urine Protein Negative (Negative) 08/04/20 14:15 Urine Glucose (UA) Negative (Negative) 08/04/20 14:15 Urine Ketones Negative (Negative) 08/04/20 14:15 Urine Nitrite Negative (Negative) 08/04/20 14:15 Ur Leukocyte Esterase 1+ (Negative) H 08/04/20 14:15 Urine WBC (Auto) 0 /hpf (0-5) 08/04/20 14:15 Urine RBC (Auto) 0-4 /hpf (0-4) 08/04/20 14:15 U Hyaline Cast (Auto) 0 /lpf (0-5) 08/04/20 14:15 U Epithel Cells (Auto) 0-5 /lpf (0-5) 08/04/20 14:15 Urine Bacteria (Auto) Negative (Negative) 08/04/20 14:15 Electrocardiogram Date: 08/03/20 Normal sinus rhythm, rate 77 bpm Left bundle branch block Abnormal ECG When compared with ECG of 28-JUN-2020 11:28, No significant change was found Confirmed by Baljinder Sims ([id number]) on 08/03/2020 9:11:20 PM Chest X-Ray Date: 08/03/20 IMPRESSION: Cardiomegaly with no active disease in the chest. Echocardiogram Date: 07/20/20 Normal biventricular systolic function Mild LVH Mild left biatrial dilatation No significant valvular abnormalities Pulmonary Function Test Date: 07/18/20 Moderate restrictive phsyiology with bronchodilator response and decreased DLCO
[2020-08-06] MEDS: SODIUM CHLORIDE 0.9% 1000ML 1,000 ML IV SCH ×2 (10:08→18:32)
[2020-08-06] MEDS ORDERED: ONDANSETRON INJ 2 MG/ML 2 ML VIAL ONE (10:54)
[2020-08-06] MEDS ORDERED: MIDAZOLAM HCL 1 MG/ML 2ML VIAL ONE (10:54)
[2020-08-06] MEDS ORDERED: PROPOFOL IV EMULSION 10 MG/ML 20 ML VIAL IV ONE (10:54)
[2020-08-06] MEDS ORDERED: LIDOCAINE HCL 2% 2 ML VIAL/AMP(20MG/ML) INFIL ONE (10:54)
[2020-08-06] MEDS ORDERED: DEXAMETHASONE SOD INJ 4 MG/ML VIAL ONE (10:54)
[2020-08-06] MEDS ORDERED: HYDROmorphone INJ 2 MG/ML SYR/VIAL ONE (10:54)
[2020-08-06] MEDS ORDERED: ROCURONIUM BROMIDE 10 MG/ML 5 ML VIAL IV ONE (10:54)
--- NOTE | 2020-08-06 11:55 | History & Physical Bridge Note ---
Date of Service August 06, 2020 History & Physical Bridge Note I have examined the patient, reviewed the History & Physical and in the interval since the performance of the History & Physical I have noted the following changes of clinical significance: no changes noted Lumbar decompression and fusion L2-3 L3-4 with removal of instrumentation L4-5 L5-S1
[2020-08-06] MEDS ORDERED: ceFAZolin 2000MG 2,000 MG/15 ML SYR IV ONE (12:03)
[2020-08-06] MEDS ORDERED: BUPIVACAINE/EPINEPHRINE 0.5% MPF 1:200,000 30 ML VIAL ONE (12:03)
[2020-08-06] MEDS ORDERED: BACITRACIN INJ 50,000 UNIT VIAL ONE (12:03)
[2020-08-06] MEDS ORDERED: ceFAZolin 2,000 MG/15 ML IV PUSH IV ONE (12:08)
[2020-08-06] MEDS ORDERED: ePHEDrine sulfate 50 MG/ML AMP IV PRN (12:10)
[2020-08-06] MEDS ORDERED: ATROPINE SULFATE 0.1 MG/ML 10ML SYR IV PRN (12:10)
[2020-08-06] MEDS ORDERED: ONDANSETRON INJ 2 MG/ML 2 ML VIAL IV PRN ×2 (12:10→18:15)
[2020-08-06] MEDS ORDERED: fentaNYL citrate 100 MCG/2 ML VIAL IV PRN (12:10)
[2020-08-06] MEDS: GABAPENTIN 300 MG CAP PO SCH ×2 (13:12→21:55)
[2020-08-06] MEDS ORDERED: NEOSTIGMINE METHYLSULFATE 1 MG/ML 10ML VIAL ONE (13:25)
[2020-08-06] MEDS ORDERED: GLYCOPYRROLATE 0.2 MG/ML VIAL ONE ×2 (13:25→14:12)
[2020-08-06] MEDS ORDERED: FLOSEAL HEMOSTATIC MATRIX 10ML TOP ONE ×2 (13:51→14:46)
[2020-08-06] MEDS ORDERED: ePHEDrine sulfate 50 MG/ML AMP ONE (14:12)
[2020-08-06] MEDS ORDERED: SODIUM CHLORIDE 0.9% INJ 10 ML VIAL ONE (14:12)
[2020-08-06] MEDS ORDERED: ALBUMIN HUMAN 5% 12.5 GM/250 ML VIAL IV ONE (14:37)
--- NOTE | 2020-08-06 15:05 | Operative Report ---
Post Operative Report Pre & Post Diagnosis Operation Date: 08/06/20 15:05 Pre-Op Diagnosis: Neuroforaminal stenosis of lumbar spine Post-Op Diagnosis: Neuroforaminal stenosis of lumbar spine I identified the patient and participated in the time-out.: Yes Procedure Operation Date: 08/06/20 15:05 Actual Procedures #1 removal of posterior instrumentation L4-5 L5-S1. #2 exploration of fusion L4-5 L5-S1. #3 revision decompression with bilateral medial facetectomies and foraminotomies L2-3 and L3-4. #4 posterior spinal fusion L2-3 and L3-4. #5 placement posterior instrumentation L2-S1. #6 interbody fusion L2-3 and L3-4. #7 placement peek cage 9 x 26 mm at L to 3 and L3-4. #8 placement locally harvested morselized autograft in the posterior gutters. #9 placement infuse collagen sponge, master graft in the posterior gutters and I factor in the interbody space. Surgeon Myles Robles, DO Sill Worker Darlene Galvan Estimated Blood Loss 650 Findings See Below The patient is 5 foot 4 inches tall weighing over 93 kg with a BMI in excess of 35. This combined with an EBL of greater than 650 cc created significant technical difficulty this at least 50% increase to the operative time. Specimens None Indications This is a 59-year-old male who presents with marked decline in neuro status over the past several days with progressive weakness and inability to ambulate subsequently is here for urgent decompression fusion. Description of Procedure Patient was met with identified informed consent obtained. Patient was then taken to the operative suite underwent intubation placed in a prone position the Raf table top [place] frame. All bony prominences well-padded eyes inspected to ensure no external pressure placed upon the. This point the lumbar spine was prepped and draped in a sterile fashion. Sharp dissection with the assistance of Bovie cautery was performed down to and exposing the lamina and transverse processes of L2-L3 and instrumentation at L4-L5 and S1 levels bilaterally. I then proceeded to remove the hardware at L4-L5 and S1 bilaterally explore the fusion mass noting it to be intact. I then performed a revision to complete decompression of L3 and L2 including bilateral medial facetectomies and foraminotomies addressing severe spinal stenosis. Pedicle screws were then placed in L2 L3-L4-L5 and the S1 levels bilaterally with assistance of fluoroscopy the proper sized yeyo placed. By way of a transforaminal approach on the right complete discectomy of L3-4 was performed endplates curetted to subcortical being bone and a 9 x 26 mm peek cage filled with I factor tapped in position. I then proceeded to L2-[address] of a transforaminal portion right complete discectomy performed endplates curetted to subcortically bone and again a 9 x 26 mm peek cage filled with I factor tapped in position. The rods and locked into final position bilaterally. The transverse processes of L2-L3-L4 burred to subcortical bleeding bone. Infuse collagen sponge mass graft local graft was placed in the posterior lateral gutters. 15 round TIFFANIE drain inserted. The incision was then closed with 1 Vicryl in the fascia 2-0 Vicryl subcutaneously and 4 Monocryl for final skin closure. Steri-Strip sterile dressings placed. Patient will continue PACU stable condition. Please note spinal cord monitoring was utilized at the procedure no changes noted. Lastly Darlene Galvan was present at the entire surgery involved the patient positioning complex portions of the surgery and final skin closure. I attest to the content of the Intraoperative Record and any orders documented therein. Any exceptions are noted below.
--- NOTE | 2020-08-06 15:29 | Fluoroscopy Report ---
FL lumbar spine 2-3V CLINICAL HISTORY: L4-S1 REMOVE HARDWARE/L2-4 DECOMPRESSION/FUSION/INTERBODY COMPARISON STUDY: Lumbar spine CT and MRI of August 03, 2020. FLUOROSCOPY TIME: 20 seconds. FLUOROSCOPIC IMAGES: 5. FINDINGS: Note is again made of levoscoliosis of the lumbar spine. Previous L4-L5 and L5-S1 discectom ies are noted. Interval L2-L3 and L3-L4 discectomies with interbody spacer placement are noted. There is apparent mild posterior positioning of the L3-L4 disc spacer. It addition, the spacer is within t he right lateral aspect of the disc space on the AP image. Posterior decompression with bilateral ped icle screw fusion from L2 through S1 is noted. There are interconnecting rods. Hardware is intact. IMPRESSION: 1. Status post posterior decompression with bilateral screw fusion from L2 through S1. 2. Apparent mild posterior positioning of the L3-L4 disc spacer. This also projects over the right as pect of the disc space on the AP image. This finding will be called/faxed to the ordering provider at time of dictation. ACT 112: Negative or not required by law. Electronically signed by: Alfredo Bolton M.D. 08/06/2020 3:28 PM
[2020-08-06] MEDS ORDERED: HYDROmorphone INJ 0.5 MG/0.5 ML SYR IV PRN (15:49)
[2020-08-06] MEDS ORDERED: HYDROmorphone INJ 1 MG/ML SYRINGE ONE (15:56)
--- NOTE | 2020-08-06 16:53 | Anesthesiology Progress Note ---
Date of Service August 06, 2020 Anesthesia Post Procedure Vital Signs Vital Signs: Temp Pulse Pulse Resp BP Pulse Ox 08/06/20 16:50 81 12 124/66 97 08/06/20 16:40 76 12 116/65 98 08/06/20 16:30 82 13 102/48 L 97 08/06/20 16:20 80 13 101/54 L 97 08/06/20 16:10 74 12 89/51 L 100 08/06/20 16:00 36.4 C L 78 17 100/52 L 100 08/06/20 15:50 74 18 118/62 100 08/06/20 15:40 77 17 133/71 99 08/06/20 15:30 79 25 H 102/53 L 100 08/06/20 15:21 36.3 C L 86 17 103/57 L 100 08/06/20 11:28 37.0 C 68 18 144/72 H 95 08/06/20 07:00 37 C 68 16 135/79 95 08/05/20 23:02 36.8 C 72 18 117/66 95 Pain Intensity Right Hip: Pain Intensity: 3 Bilateral Back: Pain Intensity: 6 Transfer of Care Handoff Completed per policy Notes Mental Status: alert / awake / arousable Patient Amnestic to Procedure: Yes Nausea / Vomiting: adequately controlled Pain: adequately controlled Airway Patency, RR, SpO2: stable & adequate BP & HR: stable & adequate Hydration State: stable & adequate Anesthetic Complications: no major complications apparent
[2020-08-06] MEDS ORDERED: SOD PHOSPHATE/SOD BIPHOSPHATE ENEMA 132 ML BTL PR PRN (18:15)
[2020-08-06] MEDS ORDERED: NON-FORMULARY MEDICATION (Amoxicillin 500 mg tablet) PO PRN (18:15)
[2020-08-06] MEDS ORDERED: MAGNESIUM HYDROXIDE SUSP 30 ML UDC PO PRN (18:15)
[2020-08-06] MEDS ORDERED: DO NOT ADMINISTER FLU VACCINE PRN (18:15)
[2020-08-06] MEDS ORDERED: FAMOTIDINE 20 MG TAB PO PRN (18:15)
[2020-08-06] MEDS ORDERED: ACETAMINOPHEN 1,000 MG/100 ML VIAL IV PRN (18:15)
[2020-08-06] MEDS ORDERED: DO NOT ADMINISTER PNEUMOCOCCAL VACCINE PRN (18:15)
[2020-08-06] MEDS ORDERED: PROMETHAZINE HCL 12.5 MG in SODIUM CHLORIDE 0.9% 50 ML IV PRN (18:15)
[2020-08-06] MEDS ORDERED: ALUMINUM/MAGNESIUM SUSP 30 ML UDC PO PRN (18:15)
[2020-08-06] MEDS ORDERED: hydrOXYzine HCl 25 MG TAB PO PRN (18:15)
[2020-08-06] MEDS ORDERED: ONDANSETRON 4 MG OD TAB PO PRN (18:15)
[2020-08-06] MEDS ORDERED: LORazepam 0.5 MG/1 ML VIAL IV PRN (18:15)
[2020-08-06] MEDS ORDERED: NALOXONE HCL 0.4 MG/1 ML VIAL/CARP IV PRN (18:15)
[2020-08-06] MEDS ORDERED: diphenhydrAMINE Capsule 25 MG CAP PO PRN (18:15)
[2020-08-06] MEDS ORDERED: LORazepam 0.5 MG TAB PO PRN (18:15)
[2020-08-06] MEDS ORDERED: METOCLOPRAMIDE HCL INJ 5 MG/ML 2 ML VIAL IV PRN (18:15)
[2020-08-06] MEDS ORDERED: ACETAMINOPHEN 500 MG TAB PO PRN (18:15)
[2020-08-06] MEDS ORDERED: oxyCODONE HCL IR 5 MG TAB (IMMEDIATE RELEASE) ONE (18:25)
--- NOTE | 2020-08-06 18:50 | Billing Data ---
Date of Service August 06, 2020 Coding Level of Care Code 89334 Subseq Hosp Care Lvl 2
[2020-08-06] MEDS: HYDROmorphone INJ 1 MG/ML SYRINGE IV PRN ×2 (19:46→23:45)
[2020-08-06] MEDS: ceFAZolin 2000MG 2,000 MG/15 ML SYR IV SCH (20:36)
[2020-08-06] MEDS: DOCUSATE SODIUM/SENNA 50/8.6MG TAB PO SCH (20:38)
[2020-08-06] MEDS: DULoxetine HCL 30 MG CAP PO SCH (20:40)
[2020-08-07] MEDS: HYDROmorphone INJ 0.5 MG/0.5 ML SYR IV PRN ×3 (00:26→20:42)
[2020-08-07] MEDS: HYDROmorphone INJ 1 MG/ML SYRINGE IV PRN ×5 (03:59→18:42)
[2020-08-07] MEDS: MoRPHine SULFATE IR 15 MG TAB (IMMEDIATE RELEASE) PO PRN ×3 (03:59→16:53)
[2020-08-07] MEDS: ceFAZolin 2000MG 2,000 MG/15 ML SYR IV SCH (04:18)
[2020-08-07] MEDS: SODIUM CHLORIDE 0.9% 1000ML 1,000 ML IV SCH ×2 (04:59→15:22)
[2020-08-07] MEDS: ACETAMINOPHEN 500 MG TAB PO SCH ×3 (05:58→22:01)
[2020-08-07] MEDS: POLYETHYLENE (MIRALAX) 17 GM PACK PO SCH ×3 (06:04→17:15)
[2020-08-07 06:09] LABS: Hemoglobin 9.1 g/dL (14.0-18.0); Immature Granulocytes # (auto) 0.02 K/uL (0.00-0.02); Immature Granulocytes % (auto) 0.2 %; Lymphocytes # (auto) 0.79 K/uL (1.2-3.4); Lymphocytes % (auto) 7.6 %; Mean Corpuscular Hemoglobin 31.1 pg (25-34); Mean Corpuscular Hgb Conc 33.7 g/dL (32-36); Mean Corpuscular Volume 92.2 fL (80-100); Mean Platelet Volume 9.7 fL (7.4-10.4); Monocytes % (auto) 9.6 %; Neutrophils # (auto) 8.56 K/uL (1.4-6.5); Neutrophils % (auto) 82.6 %; Platelet Count 238 K/uL (130-400); RDW Coefficient of Variation 12.8 % (11.5-14.5); RDW Standard Deviation 43.4 fL (36.4-46.3); Red Blood Count 2.93 M/uL (4.7-6.1); White Blood Count 10.37 K/uL (4.8-10.8)
[2020-08-07 06:39] LABS: BUN Creatinine Ratio 15.7 (10-20); Calcium 7.6 mg/dl (8.5-10.1); Creatinine Clr Calc Pharmacy 100.2 ml/min; Est GFR (African American) 111.7; Est GFR (Non-African American) 96.4; Potassium 3.6 mmol/L (3.5-5.1)
--- NOTE | 2020-08-07 07:07 | Hospitalist Progress Note ---
Date of Service August 07, 2020 Assessment & Plan (1) Neuroforaminal stenosis of lumbar spine: Aditya Moses is a 59 year old male w/ hx of spinal stenosis, cardiomyopathy, and rheumatoid arthritis who presented on 08/03 for ambulatory dysfunction secondary to severe spinal stenosis and R flank pain. 08/06 spinal fusion/decompression surgery. lumbar spinal stenosis - main pathology at L2-L3. Some issues w/ L3-L4 as well. - symptoms not suggestive of cauda equina. - s/p fusion/decompression surgery 08/06 - Tylenol, oxycodone, and dilaudid prn for pain right flank pain - location mostly near iliac crest, but general area also includes flank. no dysuria. - most likely secondary to neurogenic claudication. less likely from nephrolithiasis. UA neg for blood. anemia - Hb stable 12.3->11.3->10.9->10.7->9.1 (08/07). asymptomatic. follow cbc. hypocalcemia - Ca 7.9L->7.6L, corrected is 8.1->7.8 (08/07) - PO repletion ordered - outpatient f/u vit d level non ischemic cardiomyopathy - continue home meds rheumatoid arthritis - on chronic prednisone 5 mg PO HTN - continue spironolactone 25 PO BID. amlodipine 5 PO qam. Code: Full code Dispo: Med/surg PPX: Lovenox 40 mg sq BID. SCDs. PPI. FENGI: Low sodium, HH. mIVF d/c'd 08/07 (2) Central stenosis of spinal canal: (3) Back pain: (4) Bilateral leg weakness: (5) Kyphosis deformity of spine: (6) History of total right knee replacement: (7) Cardiomyopathy, idiopathic: (8) Chest pain: (9) Spinal stenosis of lumbar region at multiple levels: (10) Rheumatoid arthritis: (11) Restrictive airway disease: (12) Hypocalcemia: (13) Anemia: Admission and Anticipated Discharge Date Admission Date: August 03, 2020 Supervising Physician Co-Signing Physician Notes I personally examined the patient and verified all nguyen points of history and exam, discussed case, and agree with decision making with Dr Brown. Having a decent amount of pain, especially with therapy, but notes the pain medications are helping. Son present at the bedside. In general he is awake and alert pleasant no distress but does appear a little bit uncomfortable. HEENT normocephalic atraumatic mucous membranes are moist. Breathing unlabored no accessory muscle use good effort. Skin shows no rashes no pallor or icterus. Neuro shows no focal deficits. Spinal stenosisnow postop day 1, is needing the higher end of his preordered pain medications, but this seems to be helpingcontinue, mood mood rehab, PT/OT eval and treat. Appreciate Ortho input. Otherwise as above, pharmacologic DVT prophylaxisstart Lovenox Subjective This morning, patient was in a lot of pain, 9/10 severity. No groin or extremity numbness or tingling. During PM rounds, patient states that the narcotic pain regimen is working well. Review of Systems Review of Systems: Constitutional: Denies fever, chills Cardiovascular: Denies chest pain Respiratory: Denies shortness of breath Gastrointestinal: Denies abdominal pain, nausea, vomiting Genitourinary: Has key Musculoskeletal: See HPI Neurological: Denies headache Physical Exam Physical Exam: General: Grossly A&O. NAD. Cooperative. Appears uncomfortable. HEENT: Atraumatic, normocephalic. Pulm: CTAB. -wheezes, -rales, -rhonchi. No respiratory distress. Cardiac: RRR, -mrg. Musculoskeletal: L foot drop. Results & Data Results & Data ([facility]) Vital Signs (Past 12 Hours) Vital Signs Temp Pulse Resp BP BP Pulse Ox Pulse Ox 08/07/20 03:36 36.9 C 67 16 112/64 97 08/06/20 22:47 37.0 C 78 16 105/62 98 08/06/20 21:06 36.3 C L 78 16 121/69 95 08/06/20 20:14 36.9 C 99 H 16 117/73 95 08/06/20 19:15 36.9 C 84 16 117/65 97 95 Resident Activity Tracking Resident Involvement: Resident Care Provided Care Provided: Adult Hospital Medicine (1) Rheumatoid arthritis Rheumatoid arthritis location: unspecified site Rheumatoid factor presence: unspecified presence Qualified Code(s): M06.9 - Rheumatoid arthritis, unspecified (2) Back pain Back pain laterality: midline Back pain location: low back pain Chronicity: chronic Sciatica presence: unspecified whether sciatica present Qualified Cod e(s): M54.5 - Low back pain; G89.29 - Other chronic pain (3) Chest pain Chest pain type: unspecified Qualified Code(s): R07.9 - Chest pain, unspecified
[2020-08-07] MEDS: CYANOCOBALAMIN 500 MCG TABLET (VITAMIN B-12) PO SCH (10:00)
[2020-08-07] MEDS: MULTIVITAMIN TAB PO SCH (10:01)
[2020-08-07] MEDS: amLODIPine BESYLATE 5 MG TAB PO SCH (10:01)
[2020-08-07] MEDS: busPIRone 15 MG TAB PO SCH ×2 (10:01→20:46)
[2020-08-07] MEDS: DOXAZosin MESYLATE 4 MG TAB PO SCH (10:01)
[2020-08-07] MEDS: GABAPENTIN 100 MG CAP PO SCH ×2 (10:02→13:23)
[2020-08-07] MEDS: PANTOprazole 40 MG TAB PO SCH ×2 (10:03→20:46)
[2020-08-07] MEDS: MEMANTINE HCL 10 MG TAB PO SCH ×2 (10:03→20:48)
[2020-08-07] MEDS: SACUBITRIL-VALSARTAN 97-103 MG TAB PO SCH ×2 (10:04→20:45)
[2020-08-07] MEDS: LABETALOL HCL 100 MG TAB PO SCH ×3 (10:04→22:05)
[2020-08-07] MEDS: predniSONE 5 MG TAB PO SCH (10:04)
[2020-08-07] MEDS: FLUTICASONE/VILANTEROL 200/25MCG 14 PUFFS/INHALER INH SCH (10:05)
[2020-08-07] MEDS: SPIRONOLACTONE 25 MG TAB PO SCH ×2 (10:05→20:46)
[2020-08-07] MEDS: MoRPHine SULFATE CR 15 MG TABCR PO SCH ×2 (10:26→20:41)
--- NOTE | 2020-08-07 12:12 | Orthopedic Progress Note ---
Date of Service August 07, 2020 Assessment & Plan (1) Bilateral leg weakness: Admission and Anticipated Discharge Date Admission Date: August 03, 2020 At this time mechanic's assistant asked that he continue with physical therapy as tolerated. He will require more pain medication postoperatively as he was on significant narcotic medication preoperatively. He also would be an excellent candidate for rehab. Subjective Back pain is controlled leg symptoms somewhat improved. He was able to stand today with therapy. Physical Exam Physical Exam: On exam he is able to move his left toes. Dorsiflexion still limited. Right lower extremity is intact. Results & Data ([facility]) Vital Signs (Past 12 Hours) Vital Signs Temp Pulse Resp BP BP Pulse Ox 08/07/20 07:35 36.7 C 89 20 104/64 95 08/07/20 03:36 36.9 C 67 16 112/64 97
[2020-08-07] MEDS: GABAPENTIN 300 MG CAP PO SCH ×2 (13:24→22:01)
[2020-08-07] MEDS: oxyCODONE HCL IR 5 MG TAB (IMMEDIATE RELEASE) PO PRN (13:30)
--- NOTE | 2020-08-07 20:40 | Billing Data ---
Date of Service August 07, 2020 Coding Level of Care Code 30239 Subseq Hosp Care Lvl 2
[2020-08-07] MEDS: DULoxetine HCL 30 MG CAP PO SCH (20:45)
[2020-08-07] MEDS: DOCUSATE SODIUM/SENNA 50/8.6MG TAB PO SCH (20:47)
[2020-08-07] MEDS: ENOXAPARIN INJ 40 MG/0.4 ML SYR SQ SCH (22:00)
[2020-08-07] MEDS: CALCIUM 600MG + VIT D 400 IU TAB PO SCH (22:00)
[2020-08-08] MEDS: POLYETHYLENE (MIRALAX) 17 GM PACK PO SCH ×4 (00:38→19:13)
[2020-08-08] MEDS: oxyCODONE HCL IR 5 MG TAB (IMMEDIATE RELEASE) PO PRN (03:43)
[2020-08-08] MEDS: HYDROmorphone INJ 1 MG/ML SYRINGE IV PRN ×2 (03:44→08:19)
[2020-08-08] MEDS: ACETAMINOPHEN 500 MG TAB PO SCH ×3 (06:10→21:06)
--- NOTE | 2020-08-08 07:40 | Hospitalist Progress Note ---
Date of Service August 08, 2020 Assessment & Plan (1) Neuroforaminal stenosis of lumbar spine: Aditya Moses is a 59 year old male w/ hx of spinal stenosis, cardiomyopathy, and rheumatoid arthritis who presented on 08/03 for ambulatory dysfunction secondary to severe spinal stenosis and R flank pain. 08/06 spinal fusion/decompression surgery. hypotension on 08/08 - low of 71/40 (MAP of 50) on 08/08 AM - MAPs in 50s even after two 500 mL boluses given hours apart. BP improved to 114/64 after 3rd bolus. - most likely hypovolemic shock, may be from fluid loss s/p surgery. neurogenic possible given hx, but less likely. less likely cardiogenic because no dyspnea and clinically w/o signs of fluid overload or chest pain. less likely septic because normal white count and no fever or tachycardia. - may also be from opiate use as he has been using a lot, however, last dose was at 0830 and bp did not improve w/ time alone - Is/Os o 08/09 since 0700. 1.5L in 1.7L out. cumulative this admission: 16L in 14.6L out - 07/20 echo EF 60-65, normal ventricular systolic function plan: intermittent fluid boluses for MAPs <60. low threshold for transfusion of 1u pRBC if becomes more symptomatic and resistant to fluid bolus. lumbar spinal stenosis - main pathology at L2-L3. Some issues w/ L3-L4 as well. - symptoms not suggestive of cauda equina. - s/p fusion/decompression surgery 08/06 - Tylenol, oxycodone, and dilaudid prn for pain. IV narcotics held on 08/08 because of hypotension right flank pain - location mostly near iliac crest, but general area also includes flank. no dysuria. - most likely secondary to neurogenic claudication. less likely from nephrolithiasis. UA neg for blood. anemia - Hb 12.3->11.3->10.9->10.7->9.1->8.2 (08/08). follow cbc. subjective symptoms (feeling off and pale) on 08/08 more likely 2/2 hypotension. plan as per above. hypocalcemia - Ca 7.9L->7.6L->8.3 - PO repletion ordered on 08/07 because 08/07 corrected Ca was 7.8 (using 08/03 alb level) - 08/08 alb 2.3. corrected Ca 9.2. will d/c PO Ca repletion. - outpatient f/u vit d level. 08/08 update: not indicated because Ca lvl wnl. non ischemic cardiomyopathy - continue home meds rheumatoid arthritis - on chronic prednisone 5 mg PO HTN - continue spironolactone 25 PO BID. amlodipine 5 PO qam. Code: Full code Dispo: Med/surg PPX: Lovenox 40 mg sq BID. SCDs. PPI. FENGI: Low sodium, HH. mIVF d/c'd 08/07 (2) Central stenosis of spinal canal: (3) Back pain: (4) Bilateral leg weakness: (5) Kyphosis deformity of spine: (6) History of total right knee replacement: (7) Cardiomyopathy, idiopathic: (8) Chest pain: (9) Spinal stenosis of lumbar region at multiple levels: (10) Rheumatoid arthritis: (11) Restrictive airway disease: (12) Hypocalcemia: (13) Anemia: Admission and Anticipated Discharge Date Admission Date: August 03, 2020 Supervising Physician Co-Signing Physician Notes I personally examined the patient and verified all nguyen points of history and exam, discussed case, and agree with decision making with Dr Brown. pain up and down- but worried about what might happen given IV pain meds on hold and still having considerable pain. isnt feeling bad from low BP when i see him In general he is awake and alert pleasant no distress but does appear a little bit uncomfortable. HEENT normocephalic atraumatic mucous membranes are moist. Breathing unlabored no accessory muscle use good effort. Skin shows no rashes no pallor or icterus. Neuro shows no focal deficits. Spinal stenosisnow postop day 2,still working on pain control, likely would need rehab, PT/OT eval and treat. Appreciate Ortho input. hypotension - suspect mostly low SVR from dilauded, but also could have a little bit of a contribution from ABL anemia (expected given surgery); repeat CBC reassuring - no clear need for transfusion at this time -although as dilauded washes out further if BP still has lows that seem to come about despite fluid boluses, may still need blood Otherwise as above, pharmacologic DVT prophylaxis w Lovenox Subjective Pain is 8.5/10 at lower back. The right flank area is not hurting as much today. Meds are helping. He doesn't feel ready for dispo today because of the pain. Regarding rehab, he is open to the idea if he really has to. Patient has had intermittent sharp burning pain at lateral R thigh that goes from hip to knee. No numbness or tingling or saddle anesthesia symptoms. He has had this symptom in the last few days. Messaged by nurse at ~1030am informing that patient appeared pale and felt off. He had been receiving a lot of narcotic medications, last dose was 8am this AM. BP low was 71/40. Provided 500mL NSS bolus. Patient felt better after. BP stayed low at low 80s / 40s. Provided another 500 mL NSS bolus at 1330. After 3rd bolus at 1630, BP improved to 114/64. Review of Systems Review of Systems: Constitutional: Denies fever, chills Eyes: Denies blurry vision Cardiovascular: Denies chest pain Respiratory: Denies shortness of breath Gastrointestinal: Denies abdominal pain, nausea, vomiting, constipation, diarrhea Genitourinary: Denies urinary symptoms including dysuria Musculoskeletal: Painful at lower back. Neurological: Denies headache Physical Exam Physical Exam: General: Grossly A&O. NAD. Cooperative. HEENT: Atraumatic, normocephalic. Pulm: Mild inspiratory crackles at bases, worse on right. No respiratory distress. Cardiac: RRR, -mrg. Abdominal: Nontender, nondistended, soft. Musculoskeletal: Negative straight leg raise on right. Slightly improvement in left foot drop. R flank mildly ttp. Results & Data Results & Data ([facility]) Vital Signs (Past 12 Hours) Vital Signs Temp Pulse Pulse Resp BP BP Pulse Ox 08/08/20 03:38 37.4 C 89 21 107/60 97 08/07/20 22:55 37.2 C 88 16 94/56 L 92 08/07/20 22:05 86 90/46 L Resident Activity Tracking Resident Involvement: Resident Care Provided Care Provided: Adult Hospital Medicine (1) Rheumatoid arthritis Rheumatoid arthritis location: unspecified site Rheumatoid factor presence: unspecified presence Qualified Code(s): M06.9 - Rheumatoid arthritis, unspecified (2) Back pain Back pain laterality: midline Back pain location: low back pain Chronicity: chronic Sciatica presence: unspecified whether sciatica present Qualified Code(s): M54.5 - Low back pain; G89.29 - Other chronic pain (3) Chest pain Chest pain type: unspecified Qualified Code(s): R07.9 - Chest pain, unspecified
[2020-08-08 07:47] LABS: Basophils # (auto) 0.02 K/uL (0-0.2); Basophils % (auto) 0.2 %; Eosinophils # (auto) 0.35 K/uL (0-0.5); Eosinophils % (auto) 4.3 %; Hematocrit (blood only) 23.7 % (42-52); Hemoglobin 8.2 g/dL (14.0-18.0); Immature Granulocytes # (auto) 0.04 K/uL (0.00-0.02); Immature Granulocytes % (auto) 0.5 %; Lymphocytes # (auto) 1.72 K/uL (1.2-3.4); Lymphocytes % (auto) 20.9 %; Mean Corpuscular Hemoglobin 32.4 pg (25-34); Mean Corpuscular Hgb Conc 34.6 g/dL (32-36); Mean Corpuscular Volume 93.7 fL (80-100); Mean Platelet Volume 9.2 fL (7.4-10.4); Monocytes # (auto) 0.96 K/uL (0.11-0.59); Monocytes % (auto) 11.7 %; Neutrophils # (auto) 5.13 K/uL (1.4-6.5); Neutrophils % (auto) 62.4 %; Platelet Count 201 K/uL (130-400); RDW Coefficient of Variation 13.5 % (11.5-14.5); RDW Standard Deviation 46.4 fL (36.4-46.3); Red Blood Count 2.53 M/uL (4.7-6.1); White Blood Count 8.22 K/uL (4.8-10.8)
[2020-08-08] MEDS: FLUTICASONE/VILANTEROL 200/25MCG 14 PUFFS/INHALER INH SCH (08:18)
[2020-08-08] MEDS: SPIRONOLACTONE 25 MG TAB PO SCH ×2 (08:18→21:02)
[2020-08-08] MEDS: SACUBITRIL-VALSARTAN 97-103 MG TAB PO SCH ×2 (08:18→21:02)
[2020-08-08] MEDS: DOXAZosin MESYLATE 4 MG TAB PO SCH (08:18)
[2020-08-08] MEDS: busPIRone 15 MG TAB PO SCH ×2 (08:18→20:58)
[2020-08-08] MEDS: CALCIUM 600MG + VIT D 400 IU TAB PO SCH (08:18)
[2020-08-08 08:19] LABS: Albumin Level 2.6 gm/dl (3.4-5.0); BUN Creatinine Ratio 23.1 (10-20); Calcium 8.3 mg/dl (8.5-10.1); Est GFR (Non-African American) 92.3; Potassium 3.7 mmol/L (3.5-5.1)
[2020-08-08] MEDS: predniSONE 5 MG TAB PO SCH (08:19)
[2020-08-08] MEDS: MULTIVITAMIN TAB PO SCH (08:19)
[2020-08-08] MEDS: CYANOCOBALAMIN 500 MCG TABLET (VITAMIN B-12) PO SCH (08:19)
[2020-08-08] MEDS: ENOXAPARIN INJ 40 MG/0.4 ML SYR SQ SCH ×2 (08:19→21:00)
[2020-08-08] MEDS: amLODIPine BESYLATE 5 MG TAB PO SCH (08:19)
[2020-08-08] MEDS: MoRPHine SULFATE CR 15 MG TABCR PO SCH ×2 (08:19→21:31)
[2020-08-08] MEDS: LABETALOL HCL 100 MG TAB PO SCH ×2 (08:19→21:00)
[2020-08-08] MEDS: PANTOprazole 40 MG TAB PO SCH ×2 (08:19→21:02)
[2020-08-08] MEDS: MEMANTINE HCL 10 MG TAB PO SCH ×2 (08:19→21:03)
[2020-08-08 08:22] LABS: Bilirubin,Total 0.3 mg/dl (0.2-1); Globulin 2.5 gm/dl (2.5-4.0); Total Protein 5.1 gm/dl (6.4-8.2)
[2020-08-08] MEDS ORDERED: SODIUM CHLORIDE 0.9% 1000ML 500 ML IV ONE (11:05)
[2020-08-08] MEDS: GABAPENTIN 300 MG CAP PO SCH ×2 (13:03→20:58)
--- NOTE | 2020-08-08 13:09 | Orthopedic Progress Note ---
Date of Service August 08, 2020 Assessment & Plan (1) Bilateral leg weakness: Admission and Anticipated Discharge Date Admission Date: August 03, 2020 At this time he is progressing appropriately. He is a candidate for rehab and apparently has been accepted. He is good to go to rehab as soon as tomorrow for an orthopedic standpoint. Subjective Back pain is controlled leg symptoms improved. He was able to stand twice today with therapy. Physical Exam Physical Exam: On exam he still significant drop on the left but extensor hallucis longus improving. Results & Data ([facility]) Vital Signs (Past 12 Hours) Vital Signs Temp Pulse Resp BP BP Pulse Ox 08/08/20 10:49 71/40 L 88/42 L 08/08/20 07:41 36.7 C 81 18 95/58 L 93 08/08/20 03:38 37.4 C 89 21 107/60 97
[2020-08-08] MEDS ORDERED: SODIUM CHLORIDE 0.9% 500 ML IV SCH (13:30)
[2020-08-08] MEDS ORDERED: bisacodyL 10 MG SUPP PR PRN (15:06)
[2020-08-08] MEDS ORDERED: SODIUM CHLORIDE 0.9% 1000ML 1,000 ML IV ONE (16:41)
[2020-08-08] MEDS: MoRPHine SULFATE IR 15 MG TAB (IMMEDIATE RELEASE) PO PRN ×2 (16:57→21:07)
[2020-08-08 17:01] LABS: Basophils # (auto) 0.02 K/uL (0-0.2); Basophils % (auto) 0.2 %; Eosinophils # (auto) 0.27 K/uL (0-0.5); Eosinophils % (auto) 2.9 %; Hematocrit (blood only) 24.9 % (42-52); Hemoglobin 8.3 g/dL (14.0-18.0); Immature Granulocytes # (auto) 0.05 K/uL (0.00-0.02); Immature Granulocytes % (auto) 0.5 %; Lymphocytes % (auto) 10.7 %; Mean Corpuscular Hemoglobin 31.4 pg (25-34); Mean Corpuscular Hgb Conc 33.3 g/dL (32-36); Mean Corpuscular Volume 94.3 fL (80-100); Mean Platelet Volume 9.5 fL (7.4-10.4); Monocytes # (auto) 1.12 K/uL (0.11-0.59); Neutrophils # (auto) 6.87 K/uL (1.4-6.5); Neutrophils % (auto) 73.7 %; Platelet Count 218 K/uL (130-400); RDW Coefficient of Variation 13.4 % (11.5-14.5); Red Blood Count 2.64 M/uL (4.7-6.1); White Blood Count 9.33 K/uL (4.8-10.8)
[2020-08-08 17:16] LABS: BUN Creatinine Ratio 22.4 (10-20); Calcium 7.6 mg/dl (8.5-10.1); Creatinine Clr Calc Pharmacy 87.1 ml/min; Est GFR (African American) 103.7; Est GFR (Non-African American) 89.5; Potassium 4.2 mmol/L (3.5-5.1)
--- NOTE | 2020-08-08 18:19 | Billing Data ---
Date of Service August 08, 2020 Coding Level of Care Code 36748 Subseq Hosp Care Lvl 3
[2020-08-08] MEDS ORDERED: Nursing to Pharmacy Communication SCH (19:15)
[2020-08-08] MEDS: HYDROmorphone INJ 0.5 MG/0.5 ML SYR IV PRN ×2 (19:38→22:48)
[2020-08-08] MEDS: DOCUSATE SODIUM/SENNA 50/8.6MG TAB PO SCH (20:58)
[2020-08-08] MEDS: DULoxetine HCL 30 MG CAP PO SCH (20:59)
[2020-08-09] MEDS: MoRPHine SULFATE IR 15 MG TAB (IMMEDIATE RELEASE) PO PRN ×3 (01:17→12:53)
[2020-08-09] MEDS: HYDROmorphone INJ 0.5 MG/0.5 ML SYR IV PRN ×3 (02:19→08:44)
[2020-08-09] MEDS: traMADol HCL 50 MG TABLET PO PRN ×3 (04:29→15:10)
[2020-08-09] MEDS: ACETAMINOPHEN 500 MG TAB PO SCH ×2 (05:31→13:38)
[2020-08-09 06:17] LABS: Hematocrit (blood only) 24.8 % (42-52); Hemoglobin 8.2 g/dL (14.0-18.0); Mean Corpuscular Hemoglobin 31.4 pg (25-34); Mean Corpuscular Hgb Conc 33.1 g/dL (32-36); Mean Platelet Volume 9.6 fL (7.4-10.4); Platelet Count 246 K/uL (130-400); RDW Coefficient of Variation 13.6 % (11.5-14.5); RDW Standard Deviation 46.4 fL (36.4-46.3); Red Blood Count 2.61 M/uL (4.7-6.1); White Blood Count 8.31 K/uL (4.8-10.8)
--- NOTE | 2020-08-09 06:55 | Hospitalist Progress Note ---
Date of Service August 09, 2020 Assessment & Plan (1) Neuroforaminal stenosis of lumbar spine: Aditya Moses is a 59 year old male w/ hx of spinal stenosis, cardiomyopathy, and rheumatoid arthritis who presented on 08/03 for ambulatory dysfunction secondary to severe spinal stenosis and R flank pain. 08/06 spinal fusion/decompression surgery. hypotension on 08/08 - low of 71/40 (MAP of 50) on 08/08 AM - MAPs in 50s even after two 500 mL boluses given hours apart. BP improved to 114/64 after 3rd bolus. - most likely hypovolemic shock, may be from fluid loss s/p surgery. neurogenic possible given hx, but less likely. less likely cardiogenic because no dyspnea and clinically w/o signs of fluid overload or chest pain. less likely septic because normal white count and no fever or tachycardia. - may also be from opiate use as he has been using a lot, however, last dose was at 0830 and bp did not improve w/ time alone - Is/Os o 08/09 since 0700. 1.5L in 1.7L out. cumulative this admission: 16L in 14.6L out - 07/20 echo EF 60-65, normal ventricular systolic function plan: intermittent fluid boluses for MAPs <60. low threshold for transfusion of 1u pRBC if becomes more symptomatic and resistant to fluid bolus. lumbar spinal stenosis - main pathology at L2-L3. Some issues w/ L3-L4 as well. - symptoms not suggestive of cauda equina. - s/p fusion/decompression surgery 08/06 - Tylenol, oxycodone, and dilaudid prn for pain. IV narcotics held on 08/08 because of hypotension right flank pain - location mostly near iliac crest, but general area also includes flank. no dysuria. - most likely secondary to neurogenic claudication. less likely from nephrolithiasis. UA neg for blood. anemia - Hb 12.3->11.3->10.9->10.7->9.1->8.2 (08/08). follow cbc. subjective symptoms (feeling off and pale) on 08/08 more likely 2/2 hypotension. plan as per above. hypocalcemia - Ca 7.9L->7.6L->8.3 - PO repletion ordered on 08/07 because 08/07 corrected Ca was 7.8 (using 08/03 alb level) - 08/08 alb 2.3. corrected Ca 9.2. will d/c PO Ca repletion. - outpatient f/u vit d level. 08/08 update: not indicated because Ca lvl wnl. non ischemic cardiomyopathy - continue home meds rheumatoid arthritis - on chronic prednisone 5 mg PO HTN - continue spironolactone 25 PO BID. amlodipine 5 PO qam. Code: Full code Dispo: Med/surg PPX: Lovenox 40 mg sq BID. SCDs. PPI. FENGI: Low sodium, HH. mIVF d/c'd 08/07 (2) Central stenosis of spinal canal: (3) Back pain: (4) Bilateral leg weakness: (5) Kyphosis deformity of spine: (6) History of total right knee replacement: (7) Cardiomyopathy, idiopathic: (8) Chest pain: (9) Spinal stenosis of lumbar region at multiple levels: (10) Rheumatoid arthritis: (11) Restrictive airway disease: (12) Hypocalcemia: (13) Anemia: Admission and Anticipated Discharge Date Admission Date: August 03, 2020 Review of Systems Review of Systems: Constitutional: Denies fever, chills, weight change Eyes: Denies blurry vision, vision changes ENT: Denies sore throat, sinus pain Cardiovascular: Denies chest pain, palpitations Respiratory: Denies shortness of breath Gastrointestinal: Denies abdominal pain, nausea, vomiting, constipation, diarrhea Genitourinary: Denies urinary symptoms including dysuria Musculoskeletal: Denies weakness, muscle aches/pain, joint aches/pain Neurological: Denies headache, numbness, tingling, focal weakness Physical Exam Physical Exam: General: Grossly A&O. NAD. Cooperative. HEENT: Atraumatic, normocephalic. EOMI Pulm: CTAB. -wheezes, -rales, -rhonchi. No respiratory distress. Cardiac: RRR, -mrg. Radial pulses intact and symmetrical. Abdominal: Nontender, nondistended, soft. Results & Data Results & Data ([facility]) Vital Signs (Past 12 Hours) Vital Signs Temp Pulse Resp BP Pulse Ox 08/08/20 22:50 37.5 C 108 H 18 98/57 L 93 Resident Activity Tracking Resident Involvement: Resident Care Provided Care Provided: Adult Hospital Medicine (1) Back pain Back pain laterality: midline Back pain location: low back pain Chronicity: chronic Sciatica presence: unspecified whether sciatica present Qualified Code(s): M54.5 - Low back pain; G89.29 - Other chronic pain (2) Chest pain Chest pain type: unspecified Qualified Code(s): R07.9 - Chest pain, unspecified (3) Rheumatoid arthritis Rheumatoid arthritis location: unspecified site Rheumatoid factor presence: unspecified presence Qualified Code(s): M06.9 - Rheumatoid arthritis, unspecified
[2020-08-09] MEDS: MoRPHine SULFATE CR 15 MG TABCR PO SCH (08:18)
[2020-08-09] MEDS: busPIRone 15 MG TAB PO SCH (08:19)
[2020-08-09] MEDS: SPIRONOLACTONE 25 MG TAB PO SCH (08:19)
[2020-08-09] MEDS: CYANOCOBALAMIN 500 MCG TABLET (VITAMIN B-12) PO SCH (08:19)
[2020-08-09] MEDS: FLUTICASONE/VILANTEROL 200/25MCG 14 PUFFS/INHALER INH SCH (08:19)
[2020-08-09] MEDS: DOXAZosin MESYLATE 4 MG TAB PO SCH (08:20)
[2020-08-09] MEDS: PANTOprazole 40 MG TAB PO SCH (08:20)
[2020-08-09] MEDS: MEMANTINE HCL 10 MG TAB PO SCH (08:21)
[2020-08-09] MEDS: MULTIVITAMIN TAB PO SCH (08:21)
[2020-08-09] MEDS: GABAPENTIN 100 MG CAP PO SCH (08:21)
[2020-08-09] MEDS: LABETALOL HCL 100 MG TAB PO SCH (08:22)
[2020-08-09] MEDS: amLODIPine BESYLATE 5 MG TAB PO SCH (08:22)
[2020-08-09] MEDS: SACUBITRIL-VALSARTAN 97-103 MG TAB PO SCH (08:22)
[2020-08-09] MEDS: predniSONE 5 MG TAB PO SCH (08:22)
[2020-08-09] MEDS: ENOXAPARIN INJ 40 MG/0.4 ML SYR SQ SCH (08:23)
[2020-08-09] MEDS ORDERED: MoRPHine SULFATE CR 15 MG TABCR PO ONE (09:39)
[2020-08-09] MEDS: GABAPENTIN 300 MG CAP PO SCH (12:53)
--- NOTE | 2020-08-09 13:03 | Discharge Summary ---
Date of Service August 09, 2020 Admission HPI Per Admitting Provider 59 YOM with significant past medical history of chronic back pain, cervical and lumbar spine surgery, leg weakness, cardiomyopathy, LBBB, Rheumatoid Arthritis, Right TKR (2019), spinal stenosis. Patient comes to the emergency room today for evaluation of lower extremity weakness. Patient states that for the past week he has noticed that his lower extremities have been getting weaker and he also needed to start using his cane to get around. Today he was putting on his boots to go outside and upon going outside, his legs got weak and "gave out" he was unable to stand and had to drag himself to his truck. He then drove himself to the EMD. The patien'ts weakness is not associated with any numbness or tingling. He does report a new pain on his right lower back that tracks distally up the right flank. No pain traveling down either leg. Pain gets worse with bending over. He is on Advil and Morphine for his pain at home he reports. He denies any bowel or bladder symptoms or saddle anesthesia. In the EMD the patient had CT scan of his spine and a lumbar MRI done, received pain medications, IV steroids. The ER physician Dr. Mcnamara spoke with Dr. Robles [facility], and would like him to be brought in for injections and evaluations. We also updated Dr. Robles real time regarding exam findings. Admission Exam Per Admitting Provider General: awake, alert, no apparent distress Head: Normocephalic, atraumatic ENT: PERRL, EOMI, no pharyngeal exudate, mucous membranes moist Neuro: AAO x 3, speech clear and appropriate, strength intact bilaterally 5/5 uppers, sensation intact and equal all upper extremities and dermatomes, no pronator drift. - Rectal tone intact, sensory to perineum intact, 4/5 strength to right and 3/5 left lower extremity, decreased dorsiflexion left side. Mild foot drop on left side. Bilateral SI joint pain with palpation, no spasm. Chest: equal rise and fall of the chest, no accessory muscle use, no heaves or thrills, Clear to auscultation, on room air, Cardiac: Regular rate and rhythm, telemetry reviewed, skin warm dry, cap refill <3 seconds, peripheral pulses +2 no JVD, no murmur, no edema GI: NABS x 4 quadrants, soft, nontender to palpation, no rebound, guarding or tenderness : Spontaneously voiding, no pain, no CVA tenderness, MSK: As above, pelvis stable no pain, abduction and adduction of lower extremity intact Psych: Normal mood and affect Skin: no rash or erythema Principal Diagnosis spinal stenosis Discharge Exam General: Grossly A&). NAD. Cooperative. HEENT: Atraumatic, normocephalic. Pulm: CTAB. -wheezes, -rales, -rhonchi. No respiratory distress. Cardiac: RRR, -mrg. Abdominal: Nontender, nondistended, soft. Musculoskeletal: Mild L calf tenderness. Integumentary: Bilateral calves appear symmetric. No erythema or edema on calves. Neuro: + left foot drop. Discharge Data Allergies Allergy/AdvReac Type Severity Reaction Status Date / Time No Known Drug Allergies Allergy Verified 08/03/20 14:32 Consultations 08/03/20 15:50 ED Decision to Admit Stat 08/03/20 19:55 Consult Orthopedic Surgery Routine 08/06/20 18:15 Consult Case Management - Discharge Planning Routine Procedures Performed Operation Date: 08/06/20 15:05 Actual Procedures p L2-L4 Decompression Fusion, Interbody Cage L2-L3; Interbody Cage L3-L4, Removal Hardware L4-S1, Spinal Cord Monitoring - Myles Robles DO Ordered Studies 08/03/20 13:06 CT lumbar spine wo con Stat 08/03/20 13:57 MR lumbar spine wo con Stat 08/03/20 18:53 MR thoracic spine wo con Urgent 08/06/20 14:00 FL fluoroscopy <1hr Routine FL lumbar spine 2-3V Routine 08/09/20 16:00 US venous doppler LE LT Urgent Hospital Course (1) Neuroforaminal stenosis of lumbar spine: Aditya Moses is a 59 year old male w/ hx of spinal stenosis, cardiomyopathy, and rheumatoid arthritis who presented to [facility] on 08/03-08/09 for ambulatory dysfunction secondary to severe spinal stenosis and R flank pain. 08/06 spinal fusion/decompression surgery. Dispo: [facility]. PCP follow up in 1 week lumbar spinal stenosis, s/p repair - main pathology at L2-L3 and L3-L4. Has left foot drop. - symptoms not suggestive of cauda equina. - s/p fusion/decompression surgery 08/06. - for pain control, see meds list hypotension on 08/08 - improved after fluid boluses, symptoms resolved - initial symptoms were pallor and feeling week. the opiate medications may have contributed, so caution is advised right flank pain - location mostly near iliac crest, but general area also includes flank. no dysuria. - most likely secondary to neurogenic claudication. less likely from nephrolithiasis. UA neg for blood. anemia - Hb 12.3 on admission. 8.2 at discharge, did not require blood transfusion hypocalcemia - outpatient f/u - corrected Ca was borderline low, intermittently non ischemic cardiomyopathy - continued home meds rheumatoid arthritis - on chronic prednisone 5 mg PO HTN - continued home meds Code: Full code diet: low sodium <2g/day for hx of CHF (2) Central stenosis of spinal canal: (3) Back pain: (4) Bilateral leg weakness: (5) Kyphosis deformity of spine: (6) History of total right knee replacement: (7) Cardiomyopathy, idiopathic: (8) Chest pain: (9) Spinal stenosis of lumbar region at multiple levels: (10) Rheumatoid arthritis: (11) Restrictive airway disease: (12) Hypocalcemia: (13) Anemia: Total Time Total Time Spent Total Time Spent (In Minutes): <30 Discharge Plan Discharge Items Patient Disposition: Transfer Inpatient Rehab Fac Reason For Visit: WEAKNESS Discharge Diagnosis: Lumbar spinal stenosis with neurogenic claudication Activity: Per Instructions section Non-emergency contact: Primary Care Provider Call non-emergency contact if: you have any medication questions, your pain is not controlled and you have a fever Follow-up/Referrals: Giuseppe Romero MD [Primary Care Provider] - Diet: Low Sodium (2gm) Addtl Attending Provider Instructions: Aditya Moses is a 59 year old male w/ hx of spinal stenosis, cardiomyopathy, and rheumatoid arthritis who presented to [facility] on 08/03-08/09 for ambulatory dysfunction secondary to severe spinal stenosis and R flank pain. 08/06 spinal fusion/decompression surgery. Dispo: [facility]. PCP follow up in 1 week lumbar spinal stenosis, s/p repair - main pathology at L2-L3 and L3-L4. Has left foot drop. - symptoms not suggestive of cauda equina. - s/p fusion/decompression surgery 08/06. - for pain control, see meds list hypotension on 08/08 - improved after fluid boluses, symptoms resolved - initial symptoms were pallor and feeling week. the opiate medications may have contributed, so caution is advised right flank pain - location mostly near iliac crest, but general area also includes flank. no dysuria. - most likely secondary to neurogenic claudication. less likely from nephrolithiasis. UA neg for blood. anemia - Hb 12.3 on admission. 8.2 at discharge, did not require blood transfusion hypocalcemia - outpatient f/u - corrected Ca was borderline low, intermittently non ischemic cardiomyopathy - continued home meds rheumatoid arthritis - on chronic prednisone 5 mg PO HTN - continued home meds Code: Full code diet: low sodium <2g/day for hx of CHF Addtl Waste Reduction Coordinator Provider Instructions: ACTIVITY RECOMMENDATIONS: SELF CARE INSTRUCTIONS AFTER THORACIC/LUMBAR FUSIONS 1. You may walk to your tolerance. It is good exercise for your legs and back. Expect some back and intermittent leg aches and pains. 2. You may perform "counter-top" level activities (make a sandwich, kailey with a project, etc.). 3. No bending or lifting of more than 10 pounds or back twisting of any nature (roll like a log when turning in bed). 4. You may ride in a car for 20-30 minutes at a time. No driving until after your first visit with your doctor. 5. Frequent changes of position and restricting sitting to 30 minutes at a time will help limit the amount of back spasms and stiffness you may experience. 6. You may discontinue the use of ambulatory aids (cane, crutches, etc.) once your strength and confidence allow. 7. You may superintendent the shower and let water strike your incision when you arrive home at least once daily. Do not take a tub bath, sit in a hot tub or go into a swimming pool until after your first recheck in the office. SPECIAL CARE INSTRUCTIONS: VERY IMPORTANT TO READ AND REVIEW A. Your surgical incision has been closed with a cosmetic suture under the skin that will dissolve in about 6 weeks. In 14 days, you can use a pair of clean scissors and cut the suture that is left outside of the skin at the ends of your incision. 1. The small skin tapes can be removed 7 days after surgery if they have not fallen off by that point. 2. You may keep the wound open to air as much as possible to promote healing after post-op day number 5 unless told otherwise by your doctor. 3. If you think the wound looks like it is becoming infected (redness or worsening drainage) and/or you are experiencing fever, chill or worsening back pain and muscle spasms, contact the office so that we may evaluate you as soon as possible. B. Complications are uncommon, but please contact us if you have any signs or symptoms of: 1. wound infection (fever higher than 102.5 degrees F, redness, separation of wound, drainage, or increasing pain from the incision) 2. blood clots in legs (pain, swelling, redness and warmth in legs) 3. urinary tract infection (fever higher than 102.5 degrees F, burning upon urination or increased frequency of urination) 4. nerve problems (inability to walk on your toes or heels, numbness, loss of bowel or bladder control) 5. any other symptoms that concern you C. Please call the office at if you have any concerns or questions about your operation or recovery. D. No smoking! Smoking drastically decreases the chance of a solid fusion. E. Do not take any anti-inflammatory medications (Indocin, Advil, Motrin, Aspirin, Naprosyn, etc.) as these may inhibit the chance of a solid fusion. Tylenol is okay to take for pain. MANAGING PAIN AFTER SPINAL SURGERY 1. Narcotic medication is intended for short-term use and will be provided for surgical pain. Surgical pain usually lasts for a period of 4-6 weeks. Narcotic medication includes Percocet, Vicodin, Darvocet, Tylenol #3 or Lortab. 2. Longer-term pain is more appropriately treated with non-narcotic medication such as Tylenol ES. 3. Muscle spasm is not appropriately treated with narcotics. Muscle relaxers such as Soma, Flexeril or Skelaxin can be used along with Tylenol ES. 4. Remember that we all live with some "aches and pains". This is not unusual or uncommon after an injury or as we get older. a. Back pain is expected and may include muscle spasms for 4 to 6 weeks after surgery. The pain should gradually improve. If the pain worsens for no apparent reason, please contact the office. b. Intermittent leg pain may also be experienced and should not be concerned about unless it worsens for no apparent reason. If so, please contact the office. 5. We will provide appropriate medication within the normal guidelines of their prescribed use. We will also be very cautious and aware of potential abuse and extended duration of patients' medication needs. a. Pain medications are for your comfort and to assist with sleep and rest so that the tissue can heal. They are not provided in order to return to normal activity and should not be used through the day. To do so or worsening pain at night can result from ongoing tissue damage and development of tolerance to the prescribed medicine. 6. Please allow 2-3 days to process refills. Prescriptions will not be mailed but must be picked up at the office. FOLLOW UP VISIT: Keep your scheduled follow-up appointment. Any questions, please call the office at . Pending Studies at Discharge: No Stand-Alone Forms: My [facility] Skilled Items Patient informed of condition?: Yes DNR: No Discharge Level of Care: Acute rehab Communicable Disease: No Discharge Prognosis: Stable Lines: None Urinary Catheter: No Medications and DC Order Prescriptions: New morphine [MS Contin] 30 mg tablet extended release 30 mg PO Q12H Qty: 10 RF: 0 morphine 15 mg tablet 15 mg PO QID PRN (Reason: pain) Qty: 10 RF: 0 Continued diclofenac sodium 75 mg tablet,delayed release (DR/EC) See Rx Instructions .ROUTE .COMPLEX Qty: 60 RF: 2 fluticasone propion-salmeterol [Advair Diskus] 250-50 mcg/dose blister with device 1 inh inhalation BID Qty: 60 RF: 11 albuterol sulfate 90 mcg/actuation HFA aerosol inhaler See Rx Instructions .ROUTE .COMPLEX PRN (Reason: shortness of breath or wheezing) Qty: 8.5 RF: 11 amlodipine 5 mg Tablet 5 mg PO QAM RF: 0 doxazosin 8 mg Tablet 8 mg PO QAM RF: 0 gabapentin 100 mg Capsule 100 mg PO QAM RF: 0 prednisone 5 mg Tablet 5 mg PO QAM RF: 0 omeprazole 20 mg Capsule,Delayed Release(Dr/Ec) 20 mg PO BID RF: 0 labetalol 100 mg tablet 100 mg PO BID RF: 0 buspirone 15 mg tablet 15 mg PO BID RF: 0 cyanocobalamin (vitamin B-12) 1,000 mcg Capsule 1,000 mcg PO QAM RF: 0 Entresto 97-103 mg Tablet 1 tab PO BID RF: 0 multivitamin Tablet 1 tab PO QAM RF: 0 spironolactone 25 mg tablet 25 mg PO BID RF: 0 gabapentin 300 mg Capsule 300 mg PO BID RF: 0 memantine 10 mg tablet 10 mg PO BID RF: 0 duloxetine 30 mg capsule,delayed release(DR/EC) 30 mg PO HS RF: 0 Discontinued amoxicillin 500 mg tablet 2,000 mg PO ONCE PRN (Reason: prophylaxis) Qty: 4 RF: 2 morphine 30 mg Tablet,Oral Only,Extnd Release 30 mg PO BID RF: 0 morphine 15 mg tablet 15 mg PO TID PRN (Reason: pain) RF: 0 Discharge Orders: Discharge Order (Routine); Ordered 08/09/20 Ordered By: Joshua Brown Admission Data Admit Date/Time: 08/03/20 18:29 Attending Provider: Nahun Rogers Admit Provider: Alicia Amaya Primary Care Provider: Giuseppe Romero Other Providers: Nedra Arias ; Alicia Amaya ; Myles Robles ; [facility] Other Interventions: Discharge Summary Assessment (RN) Last Done: 08/09/20 17:18 Supervising Physician Co-Signing Physician Notes I personally examined the patient and verified all nguyen points of history and exam, discussed case, and agree with decision making with Dr Brown. still up and down pain, but feels up to going to rehab In general he is awake and alert pleasant no distress but does appear a little bit uncomfortable. HEENT normocephalic atraumatic mucous membranes are moist. Breathing unlabored no accessory muscle use good effort. Skin shows no rashes no pallor or icterus. Neuro shows no focal deficits. Spinal stenosispost op stable for rehab, ongoing pain control hypotension - suspect mostly low SVR from dilauded, resolved Otherwise as above, pharmacologic DVT prophylaxis w Lovenox utilized stable for rehab Resident Activity Tracking Resident Involvement: Resident Care Provided Care Provided: Adult Hospital Medicine
--- NOTE | 2020-08-09 14:28 | Ultrasound Report ---
LEFT LOWER EXTREMITY VENOUS DOPPLER HISTORY: left calf pain COMPARISON STUDY: None. FINDINGS: There is normal compressibility, flow, and augmentation within the left lower extremity jennifer p venous system. IMPRESSION: No DVT within the left lower extremity. ACT 112: Negative or not required by law. Electronically signed by: Dionisio Lou M.D. 08/09/2020 2:27 PM
[2020-08-09] MEDS ORDERED: HYDROmorphone INJ 0.5 MG/0.5 ML SYR IV STA (17:12)
--- NOTE | 2020-08-09 19:17 | Billing Data ---
Date of Service August 09, 2020 Coding Level of Care Code D/C Day Management <30 mins
[2020-08-09] MEDS ORDERED: SACUBITRIL-VALSARTAN 97-103 MG TAB PO SCH (21:00)
[2020-08-09] MEDS ORDERED: MoRPHine SULFATE CR 15 MG TABCR PO SCH (21:00)
== END 2020-08-09 17:45 | DRG 454 ==
LOC: ED 11:03 → 2N 18:29 → SUATTDRO 18:29 → 2N 19:21 → 3N 08-06 18:09

== ENCOUNTER 2020-11-09 11:17 | Inpatient (IN) ==
[2020-11-09] MEDS ORDERED: cefTRIAXone SODIUM 1,000 MG/50 ML BAG IV STA (11:39)
--- NOTE | 2020-11-09 11:39 | Emergency Department Note ---
Impression & Plan Acute hypotension, Chronic systolic heart failure, NAHUN (acute kidney injury), Acute hypokalemia ED Provider Note NAME: FESTUS LONG JR AGE: 60 SEX: M : 1960 ARRIVES VIA: Walk-In INFORMANT: Patient ED PROVIDER(S): Nahun Fermin DO CHIEF COMPLAINT: Weakness, cough HPI: Patient is a 60-year-old male with a past medical history of anemia, restrictive airway disease, left bundle branch block, cardiomyopathy who presents the ER for cough. The symptoms started this past . Notes when he is coughing he does have a burning feeling in the back of his throat. He denies any chest pain or shortness of breath. He does feel little weaker than usual. No dysuria, urgency or frequency. He has been having fevers last night of 100.8. No belly pain. No other exacerbating or remitting factors. No one around him has been sick. ROS: See above HPI for pertinent positives & negatives. A total of 10 systems reviewed and were otherwise negative. PAST MEDICAL HISTORY:See Below PAST SURGICAL HISTORY:See Below FAMILY HISTORY:See Below SOCIAL HISTORY:See Below HOME MEDICATIONS:See Below ALLERGIES:See Below VITALS:See Below PHYSICAL EXAMINATION: GENERAL: Sitting up in bed, alert, well appearing, well nourished, no distress, non-toxic EYE EXAM: normal conjunctiva. OROPHARYNX: no exudate, no erythema, lips, buccal mucosa, and tongue normal and mucous membranes are moist NECK: supple, no nuchal rigidity, no adenopathy, non-tender LUNGS: Clear to auscultation. Normal chest wall mechanics HEART: no murmurs, S1 normal and S2 normal ABDOMEN: abdomen soft, non-tender, normo-active bowel sounds, no masses, no rebound or guarding. BACK: Back is symmetrical on inspection and there is no deformity, no midline tenderness, no CVA tenderness. SKIN: no rashes and no bruising UPPER EXTREMITIES: upper extremities are grossly normal. LOWER EXTREMITIES: No pitting edema. NEURO EXAM: Normal sensorium, cranial nerves II-XII grossly intact, normal speec h, no gross weakness of arms, no gross weakness of legs. MEDICAL DECISION MAKING: Patient is a 60-year-old male who presents to the ED for cough congestion with a fever of 100.8 which all started since this past . IV was established blood work obtained. Labs show mild leukocytosis 11,000. Mild anemia at 10.7. INR was unremarkable. BMP with hyponatremia at 128. Kidney function at 3.9 up from a baseline of 1. Initially upon presentation systolic pressures were in the 70s. He was given 2 L of IV fluids. Blood pressures trended up from the 70s to the 80s and eventually to low 100s. Covid was obtained and negative. Chest x-ray was negative. Unable to obtain CTA and consequently Dopplers were obtained which were unremarkable. He was mildly hypoxic at 80% on room air. He was switched to 2 L nasal cannula. Discussed with hospitalist admitted for further work-up. He was given IV antibiotics initially due to the hypotension. Triage Nursing notes reviewed. Limited review of prior medical records performed Vital Signs: reviewed and remarkable for hypotension Differential diagnosis: Differential diagnosis includes etiologies such as sepsis, UTI, pneumonia, metabolic, electrolyte abnormalities, cardiac sources, intracerebral event, toxicologic, neurological, as well as others were entertained. ER treatment provided: See below Diagnostics interpreted by me: ECG: Sinus rhythm rate 78 Left axis Left bundle Acute QTC 465 Cardiac Monitoring: An order was placed for continuous cardiac monitoring. The monitor shows a rate of 72 with sinus rhythm. Laboratory studies: As stated above and show below. Imaging studies: Doppler lower extremities was negative Portable AP upright 1 view the chest was unremarkable Consultation(s): Discussed with Dr. Andrez Flores for further evaluation Procedures: none Critical Care: I have personally spent 33 minutes of critical care time in the direct management of this patient. This includes bedside care, interpretation of diagnostic studies, and testing, discussion with consultants, patient, and family members, and other required patient management activities. This 33 minutes is in excess of all separately billable procedures. Past Med/Surg History Medical History (Updated 11/09/20 @ 16:06 by Nahun Fermin DO) Cardiomyopathy EF 35-40% on 06/2018 echo Chronic back pain TO BILAT LEGS Chronic systolic heart failure Patient appears clinically stable he is not on a daily diuretic at this point time we will watch him in the perioperative period for volume shifts Chronic use of steroids Elevated hemidiaphragm GERD (gastroesophageal reflux disease) CONTROLLED Hypertension LABILE Kidney stones LBBB (left bundle branch block) "CHRONIC" PER CARDIO LBBB (left bundle branch block) Neuroforaminal stenosis of lumbar spine Obesity Osteoarthritis Restrictive airway disease Rheumatoid arthritis Rheumatoid arthritis SOB (shortness of breath) on exertion Spinal stenosis of lumbar region at multiple levels Surgical History (Updated 11/09/20 @ 14:21 by Sy Flores) H/O cervical spine surgery History of colonoscopy History of lithotripsy History of lumbar fusion X 2 WITH HARDWARE History of total right knee replacement (~10/2019) Family History (Updated 11/09/20 @ 14:21 by Sy Flores) Mother Family hx of colon cancer Father , age 65 Myocardial infarction Social History (Updated 11/09/20 @ 14:23 by Sy Flores) Smoking Status: Never smoker Second Hand Exposure: No; Hx Alcohol Use: Yes (quit ~2015; heavy consumption proir) Alcohol type: hard liquor Hx Substance Use: No Preferred Language: Slovenian Communication Ability: Effective Visual Impairment: No Limitations As400 Analyst Required: No Beliefs That Will Affect Care: None marital status: Single Current Living Situation: Significant Other Current Living Situation Comment: [place] current occupational status: retired and disabled current occupation: [employer] How many Children do You have: 2 Feels Safe at Home: Yes Assistive Devices: Glasses and Walker Allergies Allergies Allergy/AdvReac Type Severity Reaction Status Date / Time No Known Drug Allergies Allergy Verified 11/09/20 12:10 Home Meds Home Medications Medication Instructions Recorded Confirmed amlodipine 5 mg PO QAM 03/24/18 11/09/20 doxazosin 8 mg PO QAM 03/24/18 11/09/20 gabapentin 100 mg PO QAM 03/24/18 11/09/20 omeprazole 20 mg PO BID 03/24/18 11/09/20 prednisone 5 mg PO QAM 03/24/18 11/09/20 cyanocobalamin (vitamin B-12) 1,000 mcg PO QAM 07/21/19 11/09/20 Entresto 1 tab PO BID 10/20/19 11/09/20 labetalol 100 mg tablet 50 mg PO BID tab 11/04/19 11/09/20 multivitamin 1 tab PO QAM 01/19/20 11/09/20 duloxetine 30 mg PO HS 06/28/20 11/09/20 gabapentin 300 mg PO TID 06/28/20 11/09/20 memantine 10 mg PO BID 06/28/20 11/09/20 spironolactone 25 mg PO BID 06/28/20 11/09/20 buspirone 15 mg tablet 15 mg PO BID tab 07/04/20 11/09/20 morphine [MS Contin] 30 mg PO TID 11/09/20 11/09/20 Previous Rx's Medication Instructions Recorded albuterol sulfate 90 mcg/actuation See Rx Instructions .ROUTE 07/27/20 aerosol inhaler .COMPLEX PRN #8.5 g morphine 15 mg PO QID PRN #10 tab 08/09/20 Results & Data (ED) Vital Signs Vital Signs - 24 hr 11/09/20 11:21 11/09/20 12:05 11/09/20 12:06 Temperature 37.0 C Temperature Source Temporal Artery Scan Pulse Rate 78 73 70 Pulse Rate from SpO2 Sensor 77 Pulse Rhythm Regular Regular Pulse Strength Normal Respiratory Rate 20 18 12 Respiratory Effort / Characteristics Non-Labored Respiratory Depth Normal Respiratory Pattern Regular Blood Pressure 74/40 L 80/54 L Blood Pressure Mean 51 62 Blood Pressure Position Sitting Pulse Oximetry 92 89 L 88 L Oxygen Delivery Method Room Air Room Air Room Air Oxygen Flow Rate Sepsis Recent Fever Within 48 Hours No Sepsis New/Unexplained Change in Mental Status N/A Sepsis Action Taken by Nursing No Action Required 11/09/20 12:08 11/09/20 12:09 11/09/20 12:12 Temperature Temperature Source Pulse Rate 69 71 Pulse Rate from SpO2 Sensor 69 69 Pulse Rhythm Pulse Strength Respiratory Rate 19 10 L Respiratory Effort / Characteristics Respiratory Depth Respiratory Pattern Blood Pressure 71/53 L Blood Pressure Mean 59 Blood Pressure Position Pulse Oximetry 89 L 89 L 93 Oxygen Delivery Method Room Air Nasal Cannula Oxygen Flow Rate 2 Sepsis Recent Fever Within 48 Hours Sepsis New/Unexplained Change in Mental Status Sepsis Action Taken by Nursing 11/09/20 12:14 11/09/20 12:15 11/09/20 12:17 Temperature Temperature Source Pulse Rate 72 75 76 Pulse Rate from SpO2 Sensor 71 75 75 Pulse Rhythm Pulse Strength Respiratory Rate 11 L 13 17 Respiratory Effort / Characteristics Respiratory Depth Respiratory Pattern Blood Pressure 104/52 L 102/51 L Blood Pressure Mean 69 68 Blood Pressure Position Pulse Oximetry 97 96 97 Oxygen Delivery Method Nasal Cannula Nasal Cannula Nasal Cannula Oxygen Flow Rate 2 2 2 Sepsis Recent Fever Within 48 Hours Sepsis New/Unexplained Change in Mental Status Sepsis Action Taken by Nursing 11/09/20 12:30 11/09/20 12:36 11/09/20 12:45 Temperature Temperature Source Pulse Rate 74 74 76 Pulse Rate from SpO2 Sensor 75 73 75 Pulse Rhythm Pulse Strength Respiratory Rate 18 14 18 Respiratory Effort / Characteristics Respiratory Depth Respiratory Pattern Blood Pressure 106/56 L 110/75 Blood Pressure Mean 72 86 Blood Pressure Position Pulse Oximetry 96 97 96 Oxygen Delivery Method Nasal Cannula Nasal Cannula Nasal Cannula Oxygen Flow Rate 2 2 2 Sepsis Recent Fever Within 48 Hours Sepsis New/Unexplained Change in Mental Status Sepsis Action Taken by Nursing 11/09/20 13:00 11/09/20 13:15 11/09/20 13:30 Temperature Temperature Source Pulse Rate 71 74 79 Pulse Rate from SpO2 Sensor 70 74 80 Pulse Rhythm Pulse Strength Respiratory Rate 12 13 15 Respiratory Effort / Characteristics Respiratory Depth Respiratory Pattern Blood Pressure 98/56 L 105/63 105/62 Blood Pressure Mean 70 77 76 Blood Pressure Position Pulse Oximetry 97 96 96 Oxygen Delivery Method Nasal Cannula Nasal Cannula Nasal Cannula Oxygen Flow Rate 2 2 2 Sepsis Recent Fever Within 48 Hours Sepsis New/Unexplained Change in Mental Status Sepsis Action Taken by Nursing 11/09/20 14:11 11/09/20 14:15 11/09/20 14:30 Temperature Temperature Source Pulse Rate 87 90 90 Pulse Rate from SpO2 Sensor 87 93 H 93 H Pulse Rhythm Pulse Strength Respiratory Rate 15 16 18 Respiratory Effort / Characteristics Respiratory Depth Respiratory Pattern Blood Pressure 116/76 144/93 H Blood Pressure Mean 89 110 Blood Pressure Position Pulse Oximetry 98 94 97 Oxygen Delivery Method Nasal Cannula Nasal Cannula Nasal Cannula Oxygen Flow Rate 2 2 2 Sepsis Recent Fever Within 48 Hours Sepsis New/Unexplained Change in Mental Status Sepsis Action Taken by Nursing 11/09/20 14:45 11/09/20 14:46 11/09/20 15:00 Temperature Temperature Source Pulse Rate 92 H 93 H 95 H Pulse Rate from SpO2 Sensor 93 H 91 H 93 H Pulse Rhythm Pulse Strength Respiratory Rate 15 22 9 L Respiratory Effort / Characteristics Respiratory Depth Respiratory Pattern Blood Pressure 112/81 114/98 Blood Pressure Mean 91 103 Blood Pressure Position Pulse Oximetry 96 98 98 Oxygen Delivery Method Nasal Cannula Nasal Cannula Nasal Cannula Oxygen Flow Rate 2 2 2 Sepsis Recent Fever Within 48 Hours Sepsis New/Unexplained Change in Mental Status Sepsis Action Taken by Nursing 11/09/20 15:03 11/09/20 15:19 Temperature Temperature Source Pulse Rate 90 Pulse Rate from SpO2 Sensor Pulse Rhythm Pulse Strength Respiratory Rate 20 20 Respiratory Effort / Characteristics Non-Labored Spontaneous Respiratory Depth Respiratory Pattern Blood Pressure 117/79 Blood Pressure Mean Blood Pressure Position Pulse Oximetry 99 99 Oxygen Delivery Method Nasal Cannula Nasal Cannula Oxygen Flow Rate 2 2 Sepsis Recent Fever Within 48 Hours Sepsis New/Unexplained Change in Mental Status Sepsis Action Taken by Nursing Laboratory Data Result diagrams: 11/09/20 11:50 11/09/20 11:50 Lab Results 11/09/20 11/09/20 11/09/20 Range/Units 11:50 11:50 11:50 WBC 11.61 H (4.8-10.8) K/uL RBC 3.46 L (4.7-6.1) M/uL Hgb 10.7 L (14.0-18.0) g/dL Hct 32.2 L (42-52) % MCV 93.1 (80-100) fL MCH 30.9 (25-34) pg MCHC 33.2 (32-36) g/dL RDW Std Deviation 45.4 (36.4-46.3) fL RDW Coeff of [place]aja 13.3 (11.5-14.5) % Plt Count 259 (130-400) K/uL MPV 9.5 (7.4-10.4) fL Immature Gran % (Auto) 0.2 % Neut % (Auto) 81.1 % Lymph % (Auto) 7.3 % Wise % (Auto) 8.5 % Eos % (Auto) 2.8 % Baso % (Auto) 0.1 % Neut # (Auto) 9.41 H (1.4-6.5) K/uL Lymph # (Auto) 0.85 L (1.2-3.4) K/uL Wise # (Auto) 0.99 H (0.11-0.59) K/uL Eos # (Auto) 0.33 (0-0.5) K/uL Baso # (Auto) 0.01 (0-0.2) K/uL Immature Gran # (Auto) 0.02 (0.00-0.02) K/uL PT 9.5 (9.0-12.0) Seconds INR 0.9 (0.9-1.1) APTT 30.5 (21.0-31.0) Seconds PTT Ratio 1.2 Sodium 128 L (136-145) mmol/L Potassium 4.5 (3.5-5.1) mmol/L Chloride 95 L (98-107) mmol/L Carbon Dioxide 25 (21-32) mmol/L Anion Gap 8.0 (3-11) BUN 49 H (7-18) mg/dl Creatinine 3.92 H (0.6-1.4) mg/dl Est Cr Clr Drug Dosing 19.8 ml/min Est GFR ( Amer) 17.8 ml/min Est GFR (Non-Af Amer) 15.4 ml/min BUN/Creatinine Ratio 12.6 (10-20) Glucose 98 (70-99) mg/dl Lactate (0.4-2.0) mmol/L Calcium 8.2 L (8.5-10.1) mg/dl Magnesium 2.5 H (1.8-2.4) mg/dl Total Bilirubin 0.4 (0.2-1) mg/dl AST 21 (15-37) U/L ALT 19 (12-78) U/L Alkaline Phosphatase 112 (45-117) U/L Total Creatine Kinase (39-308) U/L Troponin I < 0.015 (0-0.045) ng/ml Total Protein 6.7 (6.4-8.2) gm/dl Albumin 3.4 (3.4-5.0) gm/dl Globulin 3.3 (2.5-4.0) gm/dl Albumin/Globulin Ratio 1.0 (0.9-2) Procalcitonin (0-0.5) ng/ml COVID-19 Eval Order SARS-CoV-2 (PCR) (Negative) RSV (Molecular) (Negative) 11/09/20 11/09/20 11/09/20 Range/Units 11:50 11:50 11:50 WBC (4.8-10.8) K/uL RBC (4.7-6.1) M/uL Hgb (14.0-18.0) g/dL Hct (42-52) % MCV (80-100) fL MCH (25-34) pg MCHC (32-36) g/dL RDW Std Deviation (36.4-46.3) fL RDW Coeff of Jaja (11.5-14.5) % Plt Count (130-400) K/uL MPV (7.4-10.4) fL Immature Gran % (Auto) % Neut % (Auto) % Lymph % (Auto) % Wise % (Auto) % Eos % (Auto) % Baso % (Auto) % Neut # (Auto) (1.4-6.5) K/uL Lymph # (Auto) (1.2-3.4) K/uL Wise # (Auto) (0.11-0.59) K/uL Eos # (Auto) (0-0.5) K/uL Baso # (Auto) (0-0.2) K/uL Immature Gran # (Auto) (0.00-0.02) K/uL PT (9.0-12.0) Seconds INR (0.9-1.1) APTT (21.0-31.0) Seconds PTT Ratio Sodium (136-145) mmol/L Potassium (3.5-5.1) mmol/L Chloride (98-107) mmol/L Carbon Dioxide (21-32) mmol/L Anion Gap (3-11) BUN (7-18) mg/dl Creatinine (0.6-1.4) mg/dl Est Cr Clr Drug Dosing ml/min Est GFR ( Amer) ml/min Est GFR (Non-Af Amer) ml/min BUN/Creatinine Ratio (10-20) Glucose (70-99) mg/dl Lactate 1.4 (0.4-2.0) mmol/L Calcium (8.5-10.1) mg/dl Magnesium (1.8-2.4) mg/dl Total Bilirubin (0.2-1) mg/dl AST (15-37) U/L ALT (12-78) U/L Alkaline Phosphatase (45-117) U/L Total Creatine Kinase 467 H (39-308) U/L Troponin I (0-0.045) ng/ml Total Protein (6.4-8.2) gm/dl Albumin (3.4-5.0) gm/dl Globulin (2.5-4.0) gm/dl Albumin/Globulin Ratio (0.9-2) Procalcitonin 0.34 (0-0.5) ng/ml COVID-19 Eval Order SARS-CoV-2 (PCR) (Negative) RSV (Molecular) (Negative) 11/09/20 11/09/2011/09/21 Range/Units 12:12 12:12 12:12 WBC (4.8-10.8) K/uL RBC (4.7-6.1) M/uL Hgb (14.0-18.0) g/dL Hct (42-52) % MCV (80-100) fL MCH (25-34) pg MCHC (32-36) g/dL RDW Std Deviation (36.4-46.3) fL RDW Coeff of Jaja (11.5-14.5) % Plt Count (130-400) K/uL MPV (7.4-10.4) fL Immature Gran % (Auto) % Neut % (Auto) % Lymph % (Auto) % Wise % (Auto) % Eos % (Auto) % Baso % (Auto) % Neut # (Auto) (1.4-6.5) K/uL Lymph # (Auto) (1.2-3.4) K/uL Wise # (Auto) (0.11-0.59) K/uL Eos # (Auto) (0-0.5) K/uL Baso # (Auto) (0-0.2) K/uL Immature Gran # (Auto) (0.00-0.02) K/uL PT (9.0-12.0) Seconds INR (0.9-1.1) APTT (21.0-31.0) Seconds PTT Ratio Sodium (136-145) mmol/L Potassium (3.5-5.1) mmol/L Chloride (98-107) mmol/L Carbon Dioxide (21-32) mmol/L Anion Gap (3-11) BUN (7-18) mg/dl Creatinine (0.6-1.4) mg/dl Est Cr Clr Drug Dosing ml/min Est GFR ( Amer) ml/min Est GFR (Non-Af Amer) ml/min BUN/Creatinine Ratio (10-20) Glucose (70-99) mg/dl Lactate (0.4-2.0) mmol/L Calcium (8.5-10.1) mg/dl Magnesium (1.8-2.4) mg/dl Total Bilirubin (0.2-1) mg/dl AST (15-37) U/L ALT (12-78) U/L Alkaline Phosphatase (45-117) U/L Total Creatine Kinase (39-308) U/L Troponin I (0-0.045) ng/ml Total Protein (6.4-8.2) gm/dl Albumin (3.4-5.0) gm/dl Globulin (2.5-4.0) gm/dl Albumin/Globulin Ratio (0.9-2) Procalcitonin (0-0.5) ng/ml COVID-19 Eval Order Covid19 at [facility] SARS-CoV-2 (PCR) NEGATIVE (Negative) RSV (Molecular) Negative (Negative) Administered Medications Discontinued Medications Albuterol (Albut/Ipratrop 3mg/0.5mg Neb 3 Ml Vial) 3 ml NEB NOW STA Stop: 11/09/20 14:58 Last Admin: 11/09/20 15:03 Dose: 3 ml Documented by: [id number] Hydrocortisone Sodium Succinate (Hydrocortisone Sod Succinate 100 Mg/2 Ml Vial) 100 mg IV NOW STA Stop: 11/09/20 13:32 Last Admin: 11/09/20 14:43 Dose: 100 mg Documented by: [id number] Sodium Chloride (Nss 1000ml) 1,000 mls @ 999 mls/hr IV .Q1H1M WILLIAM Stop: 11/09/20 12:45 Last Infusion: 11/09/20 12:31 Dose: 0 mls/hr Documented by: [id number] Admin: 11/09/20 11:30 Dose: 999 mls/hr Documented by: [id number] Ceftriaxone Sodium (Rocephin) 1,000 mg in 50 mls @ 100 mls/hr IV NOW STA Stop: 11/09/20 12:08 Last Infusion: 11/09/20 13:06 Dose: 0 mls/hr Documented by: [id number] Admin: 11/09/20 12:35 Dose: 100 mls/hr Documented by: [id number] Sodium Chloride (Nss 1000ml) 1,000 mls @ 999 mls/hr IV .Q1H1M ONE Stop: 11/09/20 14:11 Last Infusion: 11/09/20 14:16 Dose: 0 mls/hr Documented by: [id number] Admin: 11/09/20 13:15 Dose: 999 mls/hr Documented by: [id number] Imaging Data Radiologist's Impression: Chest X-Ray 11/09/20 11:33 XR chest 1V portable CLINICAL HISTORY: Sepsis. COMPARISON STUDY: Chest CT June 28, 2020. Chest radiograph August 03, 2020. FINDINGS: Lung volumes are diminished. This is unchanged. Elevation of the right hemidiaphragm with suspected right basilar atelectasis is unchanged. Cardiomegaly is noted. There is no evidence for pulmonary edema. The appearance of the chest is unchanged. IMPRESSION: 1. No acute cardiopulmonary findings. 2. No significant change in appearance of the chest. Stable elevation of the right hemidiaphragm with suspected associated atelectasis. ACT 112: Negative or not required by law. Electronically signed by: Alfredo Bolton M.D. 11/09/2020 12:03 PM Venous Doppler Study 11/09/20 13:12 BILATERAL LOWER EXTREMITY VENOUS DOPPLER HISTORY: Shortness of breath. Assess for DVT. COMPARISON STUDY: Lower extremity venous Doppler 08/29/2020. FINDINGS: There is normal compressibility, flow, and augmentation within the bilateral lower extremity deep venous systems. IMPRESSION: No DVT within the right or left lower extremity. ACT 112: Negative or not required by law. Electronically signed by: Dionisio Lou M.D. 11/09/2020 2:06 PM KUB X-Ray 11/09/20 14:57 KUB HISTORY: Abdominal distension; assess fecal load COMPARISON: Abdomen and pelvis CT 01/19/2020. KUB 05/14/2010. FINDINGS: Chronic elevation of the right hemidiaphragm. Mild levoscoliosis of th e lumbar spine with posterior decompression and fusion from L2 through S1 with pedicle screws and rods. Degenerative changes seen within the lower thoracic and upper lumbar spine. Moderate well-formed stool seen within the proximal colon. No dilated loops of bowel to suggest an obstruction. There is moderate osteoarthritis within the left hip which has progressed. No renal calculi. No ureteral calculi. No pneumoperitoneum or pneumatosis. IMPRESSION: 1. No evidence for bowel obstruction. 2. Moderate well-formed stool seen within the proximal colon. 3. Chronic elevation of the right hemidiaphragm, unchanged. ACT 112: Negative or not required by law. Electronically signed by: Dionisio Lou M.D. 11/09/2020 3:44 PM Discharge Plan Visit Data Chief Complaint: Illness Stated Complaint: BURNING IN CHEST/SHORTNESS OF BREATH ED Provider: Nahun Fermin Discharge Problem: Acute hypotension, Chronic systolic heart failure, NAHUN (acute kidney injury), Acute hypokalemia Discharge Instructions Interventions: ED Discharge Assessment Last Done: 11/09/20 15:19
[2020-11-09] MEDS ORDERED: SODIUM CHLORIDE 0.9% 1000ML 1,000 ML IV SCH (11:45)
[2020-11-09 12:03] LABS: Basophils # (auto) 0.01 K/uL (0-0.2); Basophils % (auto) 0.1 %; Eosinophils # (auto) 0.33 K/uL (0-0.5); Eosinophils % (auto) 2.8 %; Hematocrit (blood only) 32.2 % (42-52); Hemoglobin 10.7 g/dL (14.0-18.0); Immature Granulocytes # (auto) 0.02 K/uL (0.00-0.02); Immature Granulocytes % (auto) 0.2 %; Lymphocytes # (auto) 0.85 K/uL (1.2-3.4); Lymphocytes % (auto) 7.3 %; Mean Corpuscular Hemoglobin 30.9 pg (25-34); Mean Corpuscular Hgb Conc 33.2 g/dL (32-36); Mean Corpuscular Volume 93.1 fL (80-100); Mean Platelet Volume 9.5 fL (7.4-10.4); Monocytes # (auto) 0.99 K/uL (0.11-0.59); Monocytes % (auto) 8.5 %; Neutrophils # (auto) 9.41 K/uL (1.4-6.5); Neutrophils % (auto) 81.1 %; Platelet Count 259 K/uL (130-400); RDW Coefficient of Variation 13.3 % (11.5-14.5); RDW Standard Deviation 45.4 fL (36.4-46.3); Red Blood Count 3.46 M/uL (4.7-6.1); White Blood Count 11.61 K/uL (4.8-10.8)
--- NOTE | 2020-11-09 12:04 | XRay Report ---
XR chest 1V portable CLINICAL HISTORY: Sepsis. COMPARISON STUDY: Chest CT June 28, 2020. Chest radiograph August 03, 2020. FINDINGS: Lung volumes are diminished. This is unchanged. Elevation of the right hemidiaphragm with s uspected right basilar atelectasis is unchanged. Cardiomegaly is noted. There is no evidence for pulm onary edema. The appearance of the chest is unchanged. IMPRESSION: 1. No acute cardiopulmonary findings. 2. No significant change in appearance of the chest. Stable elevation of the right hemidiaphragm with suspected associated atelectasis. ACT 112: Negative or not required by law. Electronically signed by: Alfredo Bolton M.D. 11/09/2020 12:03 PM
[2020-11-09 12:15] LABS: INR 0.9 (0.9-1.1); Partial Thromboplastin Ratio 1.2; Partial Thromboplastin Time 30.5 Seconds (21.0-31.0); Prothrombin Time 9.5 Seconds (9.0-12.0)
[2020-11-09 12:25] LABS: Alanine Aminotransferase 19 U/L (12-78); Albumin Level 3.4 gm/dl (3.4-5.0); Aspartate Aminotransferase 21 U/L (15-37); BUN Creatinine Ratio 12.6 (10-20); Blood Urea Nitrogen 49 mg/dl (7-18); Calcium 8.2 mg/dl (8.5-10.1); Carbon Dioxide 25 mmol/L (21-32); Chloride 95 mmol/L (98-107); Creatinine Clr Calc Pharmacy 19.8 ml/min; Est GFR (African American) 17.8 ml/min; Est GFR (Non-African American) 15.4 ml/min; Glucose 98 mg/dl (70-99); Magnesium 2.5 mg/dl (1.8-2.4); Potassium 4.5 mmol/L (3.5-5.1); Sodium 128 mmol/L (136-145)
[2020-11-09 12:29] LABS: Alkaline Phosphatase 112 U/L (45-117); Bilirubin,Total 0.4 mg/dl (0.2-1); Globulin 3.3 gm/dl (2.5-4.0); Total Protein 6.7 gm/dl (6.4-8.2); Troponin I < 0.015 ng/ml (0-0.045)
[2020-11-09] MEDS ORDERED: SODIUM CHLORIDE 0.9% 1000ML 1,000 ML IV ONE (13:11)
[2020-11-09] MEDS ORDERED: HYDROCORTISONE SOD SUCCINATE 100 MG/2 ML VIAL IV STA (13:31)
--- NOTE | 2020-11-09 14:07 | Ultrasound Report ---
BILATERAL LOWER EXTREMITY VENOUS DOPPLER HISTORY: Shortness of breath. Assess for DVT. COMPARISON STUDY: Lower extremity venous Doppler 08/29/2020. FINDINGS: There is normal compressibility, flow, and augmentation within the bilateral lower extremit y deep venous systems. IMPRESSION: No DVT within the right or left lower extremity. ACT 112: Negative or not required by law. Electronically signed by: Dionisio Lou M.D. 11/09/2020 2:06 PM
--- NOTE | 2020-11-09 14:18 | History & Physical Report ---
Date of Service November 09, 2020 Assessment & Plan (1) Sepsis: 2nd to respiratory illness as below. Supportive care - IVF, stress-dose IV steroids, serial labs including repeat lactate later today. Did receive 1 dose of IV rocephin in ER. Procalcitonin is not elevated making bacterial source less likely. [id number], given his immunocompromised state, will continue IV antibiotics for 48 hours. If blood cultures stay negative then stop IV antibiotics. (2) Sepsis associated hypotension: Low BP at presentation likely combination of sepsis, hypovolemia, and addisonian (has been on prednisone for many years). BPs improved with IV fluids and IV stress dose steroids. hold ALL BP meds. (3) Acute respiratory failure with hypoxia: suspect viral etiology with resulting acute bronchitis. COVID testing is negative, but false negatives can occur early in the disease course. further, he has not had a COVID vaccine. check flu. check RSV. if both of the above are negative -- place in airborne isolation, make him a PUI, and repeat a COVID test in 1-2 days. in meantime - steroids, nebs, supportive care, pulmonary toilet etc. (4) Acute bronchitis: likely due to viral respiratory illness. COVID-19 testing negative, but he has NOT been vaccinated, and this test could be falsely negative. clinical picture could be c/w COVID-19. [address] in airborne isolation - would repeat a COVID test in 1-2 days. Could consider a [employer] respiratory panel as well (which contains COVID testing). in meantime - steroids, nebs, etc as above. check flu and RSV PCR. (5) Acute kidney failure: Suspect sepsis-associated ATN in the setting of volume depletion, hypotension, and multiple nephrotoxic agents (entresto, aldactone, etc). Hydrate, serial BMPs, check u/a for sediment/casts. HOLD aldactone, entresto, etc. (6) Chronic back pain: lumbar continue home regimen of morphine has been on this regimen for several years continue gabapentin, but reduce dose to 100mg TID given his acute renal failure (7) Hyponatremia: Likely due to NAHUN/ARF and volume depletion. Should correct with isotonic fluids. Serial BMPs. (8) Chronic use of steroids: low-dose prednisone - 5mg/day - for RA. will employ stress dose steroids for acute illness/sepsis. (9) Rheumatoid arthritis: on chronic prednisone (10) LBBB (left bundle branch block): chronic no signs of any acute ischemic event (11) Hypertension: HOLD ALL BP lowering medications in light of hypotension (12) DVT prophylaxis: heparin 5000 BID updated at bedside History of Present Illness Chief Complaint: cough, congestion Primary Care Provider: Giuseppe Romero MD 60yo male with steroid-dependent RA, chronic pain syndrome on narcotics, chronic LBBB, and prior cardiomyopathy presents with cough, wheezing, chest congestion, fever to 100.8 degrees, weakness, fatigue, and chest tightness. Had no appetite today. No loss of taste or smell. No sore throat but has had nasal congestion. Small amount of diarrhea last night. He normally suffers from constipation. No nausea, no vomiting. No sick contacts. No travel. He did NOT obtain the COVID vaccine. He denies any personal h/o COVID-19 infection. Allergies Allergy/AdvReac Type Severity Reaction Status Date / Time No Known Drug Allergies Allergy Verified 11/09/20 12:10 Home Medications Medication Instructions Recorded Confirmed Type amlodipine 5 mg PO QAM 03/24/18 11/09/20 History doxazosin 8 mg PO QAM 03/24/18 11/09/20 History gabapentin 100 mg PO QAM 03/24/18 11/09/20 History omeprazole 20 mg PO BID 03/24/18 11/09/20 History prednisone 5 mg PO QAM 03/24/18 11/09/20 History cyanocobalamin (vitamin B-12) 1,000 mcg PO QAM 07/21/19 11/09/20 History Entresto 1 tab PO BID 10/20/19 11/09/20 History labetalol 100 mg tablet 50 mg PO BID tab 11/04/19 11/09/20 History multivitamin 1 tab PO QAM 01/19/20 11/09/20 History duloxetine 30 mg PO HS 06/28/20 11/09/20 History gabapentin 300 mg PO TID 06/28/20 11/09/20 History memantine 10 mg PO BID 06/28/20 11/09/20 History spironolactone 25 mg PO BID 06/28/20 11/09/20 History buspirone 15 mg tablet 15 mg PO BID tab 07/04/20 11/09/20 History albuterol sulfate 90 mcg/actuation See Rx Instructions .ROUTE 07/27/20 11/09/20 Rx aerosol inhaler .COMPLEX PRN #8.5 g morphine 15 mg PO QID PRN #10 tab 08/09/20 11/09/20 Rx morphine [MS Contin] 30 mg PO TID 11/09/20 11/09/20 History Past Med/Surg History Medical History (Updated 11/09/20 @ 22:21 by Sy Flores) Cardiomyopathy previous EF 35-40%; now 60-65% (06/2020 echo) Chronic back pain Chronic use of steroids Elevated hemidiaphragm GERD (gastroesophageal reflux disease) Hypertension Kidney stones LBBB (left bundle branch block) CHRONIC. Neuroforaminal stenosis of lumbar spine Obesity Osteoarthritis Restrictive airway disease Rheumatoid arthritis Spinal stenosis of lumbar region at multiple levels Surgical History (Updated 11/09/20 @ 14:21 by Sy Flores) H/O cervical spine surgery History of colonoscopy History of lithotripsy History of lumbar fusion X 2 WITH HARDWARE History of total right knee replacement (~10/2019) Family History (Updated 11/09/20 @ 14:21 by Sy Flores) Mother Family hx of colon cancer Father , age 65 Myocardial infarction Social History (Updated 11/09/20 @ 14:23 by Sy Flores) Smoking Status: Never smoker Second Hand Exposure: No; Hx Alcohol Use: No Hx Substance Use: No Preferred Language: Liberian Communication Ability: Effective Visual Impairment: No Limitations Talent Associate Required: No Beliefs That Will Affect Care: None marital status: Single Current Living Situation: Significant Other Current Living Situation Comment: [place] current occupational status: retired and disabled current occupation: [employer] How many Children do You have: 2 Other Information That Helps Us Care for You: No Feels Safe at Home: Yes Safety Concerns: Feels Safe At This Time Assistive Devices: Cane and Oxygen - Continuous Review of Systems Constitutional: + fever, + body aches, + fatigue and + anorexia; no chills Eyes: + worsening vision yesterday vision was "off" - today back to normal Ear, Nose, Mouth, Throat: no dysphagia Respiratory: + cough, + dyspnea, + dyspnea on exertion, + pain on inspiration and + wheezing Cardiovascular: as per Subjective / HPI and + chest pain; no edema Gastrointestinal: as per Subjective / HPI, + abdominal pain, + nausea, + constipation and + diarrhea/loose stools; no vomiting Genitourinary: no dysuria Musculoskeletal: + back pain Integumentary: no rash Neurologic: + localized weakness (right hand - weak ) and + loss of sensation (right hand - chronic ) Psychiatric: no depression and no anxiety Endocrine: no diabetes Hematologic / Lymphatic: no easy bleeding and no easy bruising Physical Exam Constitutional: + acute distress (tachypneic ) and + ill appearing; no altered mental status coughing; audible wheezing in room Eyes: PERRL ENMT: Ears: no external ear abnormality Mouth: + dry oral mucous membranes; no oropharynx abnormality Neck: trachea midline, no thyromegaly Respiratory: + cough, + tachypneic and + audible wheezes Auscultation: + diminished lung sounds, + rales (fine, bases) and + wheezes (extensive b/l all lung segments) Cardiovascular: Rate/Rhythm: regular rate and regular rhythm Heart Sounds: normal S1 and normal S2; no murmur Vessels: posterior tibial pulses present and dorsalis pedis pulses present; no JVD Extremities: no edema Gastrointestinal (Abdomen): normal bowel sounds, soft, nontender, no hepatosplenomegaly Musculoskeletal: long-standing RA deformities of hands, etc. Skin: no rashes, warm and dry Neurologic: deep tendon reflexes 2+ bilaterally and moves all extremities Psychiatric: Orientation: alert and oriented x 3 Lymphatic: no cervical lymphadenopathy Results & Data Results & Data ([facility]) Vital Signs (Past 12 Hours) Vital Signs Temp Pulse Resp BP Pulse Ox 11/09/20 13:00 18 99 11/09/20 12:30 18 96 11/09/20 12:17 76 17 97 11/09/20 12:15 75 13 102/51 L 96 11/09/20 12:14 72 11 L 104/52 L 97 11/09/20 12:12 71 10 L 71/53 L 93 11/09/20 12:09 89 L 11/09/20 12:08 69 19 89 L 11/09/20 12:06 70 12 80/54 L 88 L 11/09/20 12:05 73 18 89 L 11/09/20 11:21 37.0 C 78 20 74/40 L 92 Laboratory Results Microbiology 11/09/20 12:26 Blood Aerobic Blood Culture - Pending 11/09/20 12:26 Blood Anaerobic Blood Culture - Pending 11/09/20 11:50 Blood Aerobic Blood Culture - Pending 11/09/20 11:50 Blood Anaerobic Blood Culture - Pending Labs 11/09/20 11/09/20 11/09/20 11:50 11:50 11:50 WBC 11.61 H RBC 3.46 L Hgb 10.7 L Hct 32.2 L MCV 93.1 MCH 30.9 MCHC 33.2 RDW Std Deviation 45.4 RDW Coeff of Jaja 13.3 Plt Count 259 MPV 9.5 Immature Gran % (Auto) 0.2 Neut % (Auto) 81.1 Lymph % (Auto) 7.3 [place] % (Auto) 8.5 Eos % (Auto) 2.8 Baso % (Auto) 0.1 Neut # (Auto) 9.41 H Lymph # (Auto) 0.85 L [place] # (Auto) 0.99 H Eos # (Auto) 0.33 Baso # (Auto) 0.01 Immature Gran # (Auto) 0.02 PT 9.5 INR 0.9 APTT 30.5 PTT Ratio 1.2 Sodium 128 L Potassium 4.5 Chloride 95 L Carbon Dioxide 25 Anion Gap 8.0 BUN 49 H Creatinine 3.92 H Est Cr Clr Drug Dosing 19.8 Est GFR ( Amer) 17.8 Est GFR (Non-Af Amer) 15.4 BUN/Creatinine Ratio 12.6 Glucose 98 POC Glucose Lactate Calcium 8.2 L Magnesium 2.5 H Total Bilirubin 0.4 AST 21 ALT 19 Alkaline Phosphatase 112 Total Creatine Kinase Troponin I < 0.015 Total Protein 6.7 Albumin 3.4 Globulin 3.3 Albumin/Globulin Ratio 1.0 Procalcitonin Urine Color Urine Appearance Urine pH Ur Specific [place] Urine Protein Urine Glucose (UA) Urine Ketones Urine Blood Urine Nitrite Urine Bilirubin Urine Urobilinogen Ur Leukocyte Esterase Urine WBC (Auto) Urine RBC (Auto) U Hyaline Cast (Auto) U Epithel Cells (Auto) Urine Bacteria (Auto) COVID-19 Eval Order SARS-CoV-2 (PCR) RSV (Molecular) 11/09/20 11/09/20 11/09/20 11:50 11:50 11:50 WBC RBC Hgb Hct MCV MCH MCHC RDW Std Deviation RDW Coeff of [place] Plt Count MPV Immature Gran % (Auto) Neut % (Auto) Lymph % (Auto) [place] % (Auto) Eos % (Auto) Baso % (Auto) Neut # (Auto) Lymph # (Auto) [place] # (Auto) Eos # (Auto) Baso # (Auto) Immature Gran # (Auto) PT INR APTT PTT Ratio Sodium Potassium Chloride Carbon Dioxide Anion Gap BUN Creatinine Est Cr Clr Drug Dosing Est GFR ( Amer) Est GFR (Non-Af Amer) BUN/Creatinine Ratio Glucose POC Glucose Lactate 1.4 Calcium Magnesium Total Bilirubin AST ALT Alkaline Phosphatase Total Creatine Kinase 467 H Troponin I Total Protein Albumin Globulin Albumin/Globulin Ratio Procalcitonin 0.34 Urine Color Urine Appearance Urine pH Ur Specific [place] Urine Protein Urine Glucose (UA) Urine Ketones Urine Blood Urine Nitrite Urine Bilirubin Urine Urobilinogen Ur Leukocyte Esterase Urine WBC (Auto) Urine RBC (Auto) U Hyaline Cast (Auto) U Epithel Cells (Auto) Urine Bacteria (Auto) COVID-19 Eval Order SARS-CoV-2 (PCR) RSV (Molecular) 11/09/20 11/09/20 11/09/20 12:12 12:12 12:12 WBC RBC Hgb Hct MCV MCH MCHC RDW Std Deviation RDW Coeff of [place] Plt Count MPV Immature Gran % (Auto) Neut % (Auto) Lymph % (Auto) [place] % (Auto) Eos % (Auto) Baso % (Auto) Neut # (Auto) Lymph # (Auto) [place] # (Auto) Eos # (Auto) Baso # (Auto) Immature Gran # (Auto) PT INR APTT PTT Ratio Sodium Potassium Chloride Carbon Dioxide Anion Gap BUN Creatinine Est Cr Clr Drug Dosing Est GFR ( Amer) Est GFR (Non-Af Amer) BUN/Creatinine Ratio Glucose POC Glucose Lactate Calcium Magnesium Total Bilirubin AST ALT Alkaline Phosphatase Total Creatine Kinase Troponin I Total Protein Albumin Globulin Albumin/Globulin Ratio Procalcitonin Urine Color Urine Appearance Urine pH Ur Specific [place] Urine Protein Urine Glucose (UA) Urine Ketones Urine Blood Urine Nitrite Urine Bilirubin Urine Urobilinogen Ur Leukocyte Esterase Urine WBC (Auto) Urine RBC (Auto) U Hyaline Cast (Auto) U Epithel Cells (Auto) Urine Bacteria (Auto) COVID-19 Eval Order Covid19 at [facility] SARS-CoV-2 (PCR) NEGATIVE RSV (Molecular) Negative 11/09/20 11/09/20 11/09/20 19:20 20:02 20:02 WBC RBC Hgb Hct MCV MCH MCHC RDW Std Deviation RDW Coeff of [place] Plt Count MPV Immature Gran % (Auto) Neut % (Auto) Lymph % (Auto) [place] % (Auto) Eos % (Auto) Baso % (Auto) Neut # (Auto) Lymph # (Auto) [place] # (Auto) Eos # (Auto) Baso # (Auto) Immature Gran # (Auto) PT INR APTT PTT Ratio Sodium 131 L Potassium 4.7 Chloride 101 Carbon Dioxide 23 Anion Gap 7.0 BUN 46 H Creatinine 2.68 H D Est Cr Clr Drug Dosing 28.7 Est GFR ( Amer) 28.3 Est GFR (Non-Af Amer) 24.4 BUN/Creatinine Ratio 17.0 Glucose 187 H POC Glucose Lactate 1.0 Calcium 7.8 L Magnesium Total Bilirubin AST ALT Alkaline Phosphatase Total Creatine Kinase Troponin I Total Protein Albumin Globulin Albumin/Globulin Ratio Procalcitonin Urine Color Yellow Urine Appearance Clear Urine pH 5.0 Ur Specific Ayden 1.014 Urine Protein Trace H Urine Glucose (UA) Negative Urine Ketones Negative Urine Blood Negative Urine Nitrite Negative Urine Bilirubin Negative Urine Urobilinogen Negative Ur Leukocyte Esterase Negative Urine WBC (Auto) 0 Urine RBC (Auto) 0-4 U Hyaline Cast (Auto) 1-5 U Epithel Cells (Auto) 0-5 Urine Bacteria (Auto) Negative COVID-19 Eval Order SARS-CoV-2 (PCR) RSV (Molecular) 11/09/20 21:49 WBC RBC Hgb Hct MCV MCH MCHC RDW Std Deviation RDW Coeff of [place] Plt Count MPV Immature Gran % (Auto) Neut % (Auto) Lymph % (Auto) [place] % (Auto) Eos % (Auto) Baso % (Auto) Neut # (Auto) Lymph # (Auto) [place] # (Auto) Eos # (Auto) Baso # (Auto) Immature Gran # (Auto) PT INR APTT PTT Ratio Sodium Potassium Chloride Carbon Dioxide Anion Gap BUN Creatinine Est Cr Clr Drug Dosing Est GFR ( Amer) Est GFR (Non-Af Amer) BUN/Creatinine Ratio Glucose POC Glucose 204 H Lactate Calcium Magnesium Total Bilirubin AST ALT Alkaline Phosphatase Total Creatine Kinase Troponin I Total Protein Albumin Globulin Albumin/Globulin Ratio Procalcitonin Urine Color Urine Appearance Urine pH Ur Specific [place] Urine Protein Urine Glucose (UA) Urine Ketones Urine Blood Urine Nitrite Urine Bilirubin Urine Urobilinogen Ur Leukocyte Esterase Urine WBC (Auto) Urine RBC (Auto) U Hyaline Cast (Auto) U Epithel Cells (Auto) Urine Bacteria (Auto) COVID-19 Eval Order SARS-CoV-2 (PCR) RSV (Molecular) Diagnostic Findings Chest X-Ray 11/09/20 11:33 XR chest 1V portable CLINICAL HISTORY: Sepsis. COMPARISON STUDY: Chest CT June 28, 2020. Chest radiograph August 03, 2020. FINDINGS: Lung volumes are diminished. This is unchanged. Elevation of the right hemidiaphragm with suspected right basilar atelectasis is unchanged. Cardiomegaly is noted. There is no evidence for pulmonary edema. The appearance of the chest is unchanged. IMPRESSION: 1. No acute cardiopulmonary findings. 2. No significant change in appearance of the chest. Stable elevation of the right hemidiaphragm with suspected associated atelectasis. ACT 112: Negative or not required by law. Electronically signed by: Alfredo Bolton M.D. 11/09/2020 12:03 PM Venous Doppler Study 11/09/20 13:12 BILATERAL LOWER EXTREMITY VENOUS DOPPLER HISTORY: Shortness of breath. Assess for DVT. COMPARISON STUDY: Lower extremity venous Doppler 08/29/2020. FINDINGS: There is normal compressibility, flow, and augmentation within the bilateral lower extremity deep venous systems. IMPRESSION: No DVT within the right or left lower extremity. ACT 112: Negative or not required by law. Electronically signed by: Dionisio Lou M.D. 11/09/2020 2:06 PM KUB X-Ray 11/09/20 14:57 KUB HISTORY: Abdominal distension; assess fecal load COMPARISON: Abdomen and pelvis CT 01/19/2020. KUB 05/14/2010. FINDINGS: Chronic elevation of the right hemidiaphragm. Mild levoscoliosis of the lumbar spine with posterior decompression and fusion from L2 through S1 with pedicle screws and rods. Degenerative changes seen within the lower thoracic and upper lumbar spine. Moderate well-formed stool seen within the proximal colon. No dilated loops of bowel to suggest an obstruction. There is moderate osteoarthritis within the left hip which has progressed. No renal calculi. No ureteral calculi. No pneumoperitoneum or pneumatosis. IMPRESSION: 1. No evidence for bowel obstruction. 2. Moderate well-formed stool seen within the proximal colon. 3. Chronic elevation of the right hemidiaphragm, unchanged. ACT 112: Negative or not required by law. Electronically signed by: Dionisio Lou M.D. 11/09/2020 3:44 PM EKG - NSR, LBBB (old) Code Status & VTE Plan Code Status full code VTE Prophylaxis Plan VTE Prophylaxis will be ordered: Yes PG Care Time/CCT Total # of Minutes Spent Total Time Spent with Patient: Total time spent is greater than 50% in coordination of care (as documented) at patient's floor/unit and/or counseling patient: Coding Level of Care Code 98354 Initial Inpt Care Lvl 3 Diagnoses Sepsis A41.9 Sepsis associated hypotension A41.9; I95.9 Acute respiratory failure with hypoxia J96.01 Acute bronchitis J20.9 Acute kidney failure N17.9 Chronic back pain M54.9; G89.29 Hyponatremia E87.1 Chronic use of steroids Rheumatoid arthritis M06.9 Rheumatoid arthritis location: unspecified site Rheumatoid factor presence: unspecified presence LBBB (left bundle branch block) I44.7 Hypertension I10 Hypertension type: essential hypertension DVT prophylaxis Z29.9 (1) Rheumatoid arthritis Rheumatoid arthritis location: unspecified site Rheumatoid factor presence: unspecified presence Qualified Code(s): M06.9 - Rheumatoid arthritis, unspecified (2) Hypertension Hypertension type: essential hypertension Qualified Code(s): I10 - Essential (primary) hypertension
[2020-11-09] MEDS ORDERED: ALBUT/IPRATROP 3MG/0.5MG NEB 3 ML VIAL NEB STA (14:57)
--- NOTE | 2020-11-09 15:45 | XRay Report ---
KUB HISTORY: Abdominal distension; assess fecal load COMPARISON: Abdomen and pelvis CT 01/19/2020. KUB 05/14/2010. FINDINGS: Chronic elevation of the right hemidiaphragm. Mild levoscoliosis of the lumbar spine with p osterior decompression and fusion from L2 through S1 with pedicle screws and rods. Degenerative estrella es seen within the lower thoracic and upper lumbar spine. Moderate well-formed stool seen within the proximal colon. No dilated loops of bowel to suggest an obstruction. There is moderate osteoarthritis within the left hip which has progressed. No renal calculi. No ureteral calculi. No pneumoperitoneu m or pneumatosis. IMPRESSION: 1. No evidence for bowel obstruction. 2. Moderate well-formed stool seen within the proximal colon. 3. Chronic elevation of the right hemidiaphragm, unchanged. ACT 112: Negative or not required by law. Electronically signed by: Dionisio Lou M.D. 11/09/2020 3:44 PM
[2020-11-09] MEDS ORDERED: MoRPHine SULFATE IR 15 MG TAB (IMMEDIATE RELEASE) PO PRN (16:11)
[2020-11-09] MEDS ORDERED: NITROGLYCERIN SL 0.4 MG/TAB TAB SL PRN (16:11)
[2020-11-09] MEDS ORDERED: ONDANSETRON INJ 2 MG/ML 2 ML VIAL IV PRN (16:11)
[2020-11-09] MEDS: SODIUM CHLORIDE 0.9% 1000ML 1,000 ML IV SCH (16:16)
--- NOTE | 2020-11-09 17:03 | Electrocardiogram Report ---
Test Reason : Blood Pressure : / mmHG Vent. Rate : 078 BPM Atrial Rate : 078 BPM P-R Int : 186 ms QRS Dur : 150 ms QT Int : 408 ms P-R-T Axes : 044 -29 008 degrees QTc Int : 465 ms Normal sinus rhythm Non-specific intra-ventricular conduction delay Abnormal ECG When compared with ECG of 03-AUG-2020 12:07, No significant change was found Confirmed by Zachary Arenas ([id number]) on 11/09/2020 5:02:54 PM Referred By: Confirmed By:Jose Arenas
[2020-11-09] MEDS: ALBUT/IPRATROP 3MG/0.5MG NEB 3 ML VIAL NEB SCH (19:32)
[2020-11-09 20:31] LABS: Calcium 7.8 mg/dl (8.5-10.1); Creatinine Clr Calc Pharmacy 28.7 ml/min; Est GFR (African American) 28.3 ml/min; Est GFR (Non-African American) 24.4 ml/min; Potassium 4.7 mmol/L (3.5-5.1)
[2020-11-09] MEDS: MoRPHine SULFATE CR 15 MG TABCR PO SCH (20:38)
[2020-11-09] MEDS: methylPREDNISolone 40 MG in SYRINGE 0 ML IV SCH (20:38)
[2020-11-09] MEDS: busPIRone 15 MG TAB PO SCH (20:40)
[2020-11-09] MEDS: DULoxetine HCL 30 MG CAP PO SCH (20:40)
[2020-11-09] MEDS: guaiFENesin 600 MG TABCR PO SCH (20:42)
[2020-11-09] MEDS: HEPARIN SOD 5,000 UNIT/0.5 ML VIAL SQ SCH (20:42)
[2020-11-09] MEDS: PANTOprazole 40 MG TAB PO SCH (20:42)
[2020-11-09] MEDS: MEMANTINE HCL 10 MG TAB PO SCH (20:43)
[2020-11-09] MEDS ORDERED: GABAPENTIN 100 MG CAP PO SCH (21:00)
[2020-11-09 21:32] LABS: Appearance Urine Clear (Clear); Bacteria Urine Automated Negative (Negative); Bilirubin Urine Negative (Negative); Blood Urine Negative (Negative); Color Urine Yellow; Epithelial Cell Urine Auto 0-5 /lpf (0-5); Glucose Urine UA Negative (Negative); Ketones Urine Negative (Negative); Leukocyte Esterase Urine Negative (Negative); Nitrite Urine Negative (Negative); Protein Urine Trace (Negative); RBC Urine Automated 0-4 /hpf (0-4); Specific Gravity Urine 1.014 (1.000-1.030); Urobilinogen Urine Negative (Negative); WBC Urine Automated 0 /hpf (0-5)
[2020-11-09] MEDS ORDERED: GLUCOSE 10 TABS/TUBE PO PRN (21:35)
[2020-11-09] MEDS ORDERED: CARBOHYDRATES FOR HYPOGLYCEMIA PO PRN (21:35)
[2020-11-09] MEDS ORDERED: GLUCOSE 40% GEL 15 GM TUBE PO PRN (21:35)
[2020-11-09] MEDS ORDERED: GLUCAGON FOR INJ 1 MG VIAL SQ PRN (21:35)
[2020-11-09] MEDS ORDERED: DEXTROSE 50% 50 ML SYRINGE IV PRN (21:35)
[2020-11-09] MEDS: GABAPENTIN 300 MG CAP PO SCH (22:22)
[2020-11-09] MEDS: FAMOTIDINE 20 MG TAB PO SCH (22:22)
[2020-11-10] MEDS: SODIUM CHLORIDE 0.9% 1000ML 1,000 ML IV SCH (04:28)
[2020-11-10] MEDS: methylPREDNISolone 40 MG in SYRINGE 0 ML IV SCH ×3 (04:29→19:58)
[2020-11-10 06:38] LABS: Hematocrit (blood only) 33.9 % (42-52); Hemoglobin 11.2 g/dL (14.0-18.0); Mean Corpuscular Volume 93.9 fL (80-100); Mean Platelet Volume 9.7 fL (7.4-10.4); Platelet Count 244 K/uL (130-400); RDW Standard Deviation 45.2 fL (36.4-46.3); Red Blood Count 3.61 M/uL (4.7-6.1)
[2020-11-10] MEDS: ALBUT/IPRATROP 3MG/0.5MG NEB 3 ML VIAL NEB SCH ×4 (06:56→19:45)
[2020-11-10 07:24] LABS: BUN Creatinine Ratio 21.9 (10-20); Calcium 7.4 mg/dl (8.5-10.1); Creatinine Clr Calc Pharmacy 56.5 ml/min; Est GFR (African American) 64.8 ml/min; Est GFR (Non-African American) 55.9 ml/min; Potassium 5.4 mmol/L (3.5-5.1)
[2020-11-10] MEDS: INSULIN ASPART 100 UNITS/ML 3 ML PEN SC SCH ×4 (08:00→20:11)
[2020-11-10] MEDS: FAMOTIDINE 20 MG TAB PO SCH ×2 (08:30→19:58)
[2020-11-10] MEDS: POLYETHYLENE (MIRALAX) 17 GM PACK PO SCH (08:31)
[2020-11-10] MEDS: MoRPHine SULFATE CR 15 MG TABCR PO SCH ×3 (08:45→19:57)
[2020-11-10] MEDS: busPIRone 15 MG TAB PO SCH ×2 (08:46→19:57)
[2020-11-10] MEDS: CYANOCOBALAMIN 500 MCG TABLET (VITAMIN B-12) PO SCH (08:47)
[2020-11-10] MEDS: guaiFENesin 600 MG TABCR PO SCH ×2 (08:49→19:57)
[2020-11-10] MEDS: GABAPENTIN 300 MG CAP PO SCH ×3 (08:49→19:58)
[2020-11-10] MEDS: PANTOprazole 40 MG TAB PO SCH ×2 (08:50→19:57)
[2020-11-10] MEDS: HEPARIN SOD 5,000 UNIT/0.5 ML VIAL SQ SCH ×2 (08:50→19:58)
[2020-11-10] MEDS: MEMANTINE HCL 10 MG TAB PO SCH ×2 (08:51→19:58)
[2020-11-10] MEDS: MULTIVITAMIN TAB PO SCH (08:51)
[2020-11-10] MEDS: SENNA 8.6 MG TAB PO SCH (08:52)
[2020-11-10] MEDS ORDERED: AZITHROMYCIN 500 MG in DEXTROSE 5% 250 ML IV ONE (09:00)
[2020-11-10] MEDS: cefTRIAXone SODIUM 2,000 MG in DEXTROSE 5% 50 ML IV SCH (09:01)
[2020-11-10] MEDS: ACETAMINOPHEN 325 MG TAB PO PRN (14:16)
[2020-11-10] MEDS: BENZONATATE 100 MG CAPSULE PO PRN (17:17)
--- NOTE | 2020-11-10 18:41 | Hospitalist Progress Note ---
Date of Service November 10, 2020 Assessment & Plan (1) Sepsis: 2nd to respiratory illness as below.Likely community acquired PNA Received IVF, stress-dose IV steroids-hypotension resolve Lactate improved to normal CXR with +right infiltrate Procalcitonin is not elevated making bacterial source less likely. COVID and RSV neg, Flu swab was cancelled? No sick contacts, no prior PULM disease but does have RA -continue ceftriaxone add on azithro in AM, plan to check [employer] resp panel which includes COVID again maintain as COVID PUI for now on precautions (2) Pneumonia: as above with rhonchi on exam on right side as well check sputum cx (3) Sepsis associated hypotension: Low BP at presentation likely combination of sepsis, hypovolemia, and addisonian (has been on prednisone for many years). BPs improved with IV fluids and IV stress dose steroids. hold ALL BP meds. (4) Acute respiratory failure with hypoxia: suspect viral etiology with resulting acute bronchitis. But could be bacterial COVID testing is negative, but false negatives can occur early in the disease course. further, he has not had a COVID vaccine. as Cesar mcnamara in the AM continue steroids, nebs, supportive care, pulmonary toilet etc. (5) Acute bronchitis: likely due to viral respiratory illness. as above (6) Acute kidney failure: Suspect sepsis-associated ATN in the setting of volume depletion, hypotension, and multiple nephrotoxic agents (entresto, aldactone, etc). 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 treated with isotonic fluids, hold home diuretics Na+ 134 today follow BMP (9) Chronic use of steroids: low-dose prednisone - 5mg/day - for RA. will employ stress dose steroids for acute illness/sepsis.continue such today with IV Solu Medrol as above (10) Rheumatoid arthritis: on chronic prednisone (11) LBBB (left bundle branch block): chronic no signs of any acute ischemic event (12) Hypertension: HOLD ALL BP lowering medications in light of hypotension -BPs improved now (13) Cardiomyopathy, idiopathic: now resolved remains on meds at home for CHF holding them here as above (14) Hyperkalemia: mild, K+ 5.4 follow BMP in AM (15) DVT prophylaxis: heparin 5000 BID Dispo-continue dstay Admission and Anticipated Discharge Date Admission Date: November 09, 2020 Subjective Pt reports still coughing and has burning in chest with cough. Denies any previous lung issues, no sick contacts. Denies nausea or abd pain, no diarrhea. He had a BM yesterday. He is bringing up clear-yellow sputum He was OOB to chair and had SOB and RN placed him on 1LNC for comfort Tele with IVCD, sinus tachycardia. Rates recorded as 180-200 on tele but leads are not working correctly. He was in low 100s on my exam when I saw him despite no correlation with almost cdouble rates on tele Review of Systems Review of Systems: All systems reviewed & are unremarkable except as noted in HPI & below Physical Exam 2 Constitutional: WD/WN, vitals as above Eyes: + anicteric sclerae Neck: trachea midline, no thyromegaly Respiratory: normal respiratory effort Auscultation: + rhonchi (right lower and middle lung chester); no crackles and no wheezes Cardiovascular: Rate/Rhythm: regular rate and + tachycardic (mild) Heart Sounds: no murmur Extremities: no calf tenderness and no edema Chest (Breasts): Chest: normal inspection of chest Gastrointestinal (Abdomen): normal bowel sounds, soft, nontender, no hepatosplenomegaly Musculoskeletal: Extremities: extremities normal to inspection; no cyanosis and no clubbing Skin: no rashes, warm and dry Neurologic: moves all extremities and awake; no focal motor deficits Psychiatric: A+Ox3, euthymic affect Lymphatic: no lymphedema Results & Data Results & Data ([facility]) Vital Signs (Past 12 Hours) Vital Signs Temp Pulse Pulse Resp BP Pulse Ox Pulse Ox 11/10/20 17:02 36.4 C L 96 H 19 135/88 95 11/10/20 15:18 83 97 11/10/20 12:00 97 11/10/20 11:51 36.5 C 91 H 20 107/59 L 95 11/10/20 11:25 82 20 95 11/10/20 10:21 86 92 11/10/20 06:56 81 20 97 11/10/20 06:47 36.7 C 93 H 17 107/70 97 Laboratory Results 11/10/20 11/10/20 11/10/20 Range/Units 16:59 11:47 08:19 WBC (4.8-10.8) K/uL RBC (4.7-6.1) M/uL Hgb (14.0-18.0) g/dL Hct (42-52) % MCV (80-100) fL MCH (25-34) pg MCHC (32-36) g/dL RDW Std Deviation (36.4-46.3) fL RDW Coeff of Jaja (11.5-14.5) % Plt Count (130-400) K/uL MPV (7.4-10.4) fL Sodium (136-145) mmol/L Potassium (3.5-5.1) mmol/L Chloride (98-107) mmol/L Carbon Dioxide (21-32) mmol/L Anion Gap (3-11) BUN (7-18) mg/dl Creatinine (0.6-1.4) mg/dl Est Cr Clr Drug Dosing ml/min Est GFR ( Amer) ml/min Est GFR (Non-Af Amer) ml/min BUN/Creatinine Ratio (10-20) Glucose (70-99) mg/dl POC Glucose 112 H 200 H 139 H (70-99) mg/dl Lactate (0.4-2.0) mmol/L Calcium (8.5-10.1) mg/dl Urine Color Urine Appearance (Clear) Urine pH (4.5-7.5) Ur Specific [place] (1.000-1.030) Urine Protein (Negative) Urine Glucose (UA) (Negative) Urine Ketones (Negative) Urine Blood (Negative) Urine Nitrite (Negative) Urine Bilirubin (Negative) Urine Urobilinogen (Negative) Ur Leukocyte Esterase (Negative) Urine WBC (Auto) (0-5) /hpf Urine RBC (Auto) (0-4) /hpf U Hyaline Cast (Auto) (0-5) /lpf U Epithel Cells (Auto) (0-5) /lpf Urine Bacteria (Auto) (Negative) 11/10/20 11/10/20 11/09/20 Range/Units 06:24 06:24 21:49 WBC 7.00 (4.8-10.8) K/uL RBC 3.61 L (4.7-6.1) M/uL Hgb 11.2 L (14.0-18.0) g/dL Hct 33.9 L (42-52) % MCV 93.9 (80-100) fL MCH 31.0 (25-34) pg MCHC 33.0 (32-36) g/dL RDW Std Deviation 45.2 (36.4-46.3) fL RDW Coeff of Jaja 13.0 (11.5-14.5) % Plt Count 244 (130-400) K/uL MPV 9.7 (7.4-10.4) fL Sodium 134 L (136-145) mmol/L Potassium 5.4 H (3.5-5.1) mmol/L Chloride 104 (98-107) mmol/L Carbon Dioxide 26 (21-32) mmol/L Anion Gap 4.0 (3-11) BUN 30 H (7-18) mg/dl Creatinine 1.35 D (0.6-1.4) mg/dl Est Cr Clr Drug Dosing 56.5 ml/min Est GFR ( Amer) 64.8 ml/min Est GFR (Non-Af Amer) 55.9 ml/min BUN/Creatinine Ratio 21.9 H (10-20) Glucose 163 H (70-99) mg/dl POC Glucose 204 H (70-99) mg/dl Lactate (0.4-2.0) mmol/L Calcium 7.4 L (8.5-10.1) mg/dl Urine Color Urine Appearance (Clear) Urine pH (4.5-7.5) Ur Specific [place] (1.000-1.030) Urine Protein (Negative) Urine Glucose (UA) (Negative) Urine Ketones (Negative) Urine Blood (Negative) Urine Nitrite (Negative) Urine Bilirubin (Negative) Urine Urobilinogen (Negative) Ur Leukocyte Esterase (Negative) Urine WBC (Auto) (0-5) /hpf Urine RBC (Auto) (0-4) /hpf U Hyaline Cast (Auto) (0-5) /lpf U Epithel Cells (Auto) (0-5) /lpf Urine Bacteria (Auto) (Negative) 0611/09/20 11/09/20 Range/Units 20:02 20:02 19:20 WBC (4.8-10.8) K/uL RBC (4.7-6.1) M/uL Hgb (14.0-18.0) g/dL Hct (42-52) % MCV (80-100) fL MCH (25-34) pg MCHC (32-36) g/dL RDW Std Deviation (36.4-46.3) fL RDW Coeff of Jaja (11.5-14.5) % Plt Count (130-400) K/uL MPV (7.4-10.4) fL Sodium 131 L (136-145) mmol/L Potassium 4.7 (3.5-5.1) mmol/L Chloride 101 (98-107) mmol/L Carbon Dioxide 23 (21-32) mmol/L Anion Gap 7.0 (3-11) BUN 46 H (7-18) mg/dl Creatinine 2.68 H D (0.6-1.4) mg/dl Est Cr Clr Drug Dosing 28.7 ml/min Est GFR ( Amer) 28.3 ml/min Est GFR (Non-Af Amer) 24.4 ml/min BUN/Creatinine Ratio 17.0 (10-20) Glucose 187 H (70-99) mg/dl POC Glucose (70-99) mg/dl Lactate 1.0 (0.4-2.0) mmol/L Calcium 7.8 L (8.5-10.1) mg/dl Urine Color Yellow Urine Appearance Clear (Clear) Urine pH 5.0 (4.5-7.5) Ur Specific [place] 1.014 (1.000-1.030) Urine Protein Trace H (Negative) Urine Glucose (UA) Negative (Negative) Urine Ketones Negative (Negative) Urine Blood Negative (Negative) Urine Nitrite Negative (Negative) Urine Bilirubin Negative (Negative) Urine Urobilinogen Negative (Negative) Ur Leukocyte Esterase Negative (Negative) Urine WBC (Auto) 0 (0-5) /hpf Urine RBC (Auto) 0-4 (0-4) /hpf U Hyaline Cast (Auto) 1-5 (0-5) /lpf U Epithel Cells (Auto) 0-5 (0-5) /lpf Urine Bacteria (Auto) Negative (Negative) PG Care Time/CCT Total # of Minutes Spent Total Time Spent with Patient: Total time spent is greater than 50% in coordination of care (as documented) at patient's floor/unit and/or counseling patient: Coding Level of Care Code 03461 Subseq Hosp Care Lvl 3 Diagnoses Sepsis A41.9 Pneumonia J18.9 Sepsis associated hypotension A41.9; I95.9 Acute respiratory failure with hypoxia J96.01 Acute bronchitis J20.9 Acute kidney failure N17.9 Chronic back pain M54.9; G89.29 Hyponatremia E87.1 Chronic use of steroids Rheumatoid arthritis M06.9 Rheumatoid arthritis location: unspecified site Rheumatoid factor presence: unspecified presence LBBB (left bundle branch block) I44.7 Hypertension I10 Hypertension type: essential hypertension Cardiomyopathy, idiopathic I42.8 Hyperkalemia E87.5 DVT prophylaxis Z29.9 (1) Rheumatoid arthritis Rheumatoid arthritis location: unspecified site Rheumatoid factor presence: unspecified presence Qualified Code(s): M06.9 - Rheumatoid arthritis, unspecified (2) Hypertension Hypertension type: essential hypertension Qualified Code(s): I10 - Essential (primary) hypertension
[2020-11-10] MEDS: DULoxetine HCL 30 MG CAP PO SCH (19:58)
[2020-11-11] MEDS: BENZONATATE 100 MG CAPSULE PO PRN ×3 (00:44→20:43)
[2020-11-11] MEDS: methylPREDNISolone 40 MG in SYRINGE 0 ML IV SCH ×2 (05:25→13:26)
[2020-11-11 05:58] LABS: Hematocrit (blood only) 33.1 % (42-52); Hemoglobin 10.9 g/dL (14.0-18.0); Immature Granulocytes # (auto) 0.03 K/uL (0.00-0.02); Immature Granulocytes % (auto) 0.2 %; Lymphocytes % (auto) 4.4 %; Mean Corpuscular Hemoglobin 30.5 pg (25-34); Mean Corpuscular Hgb Conc 32.9 g/dL (32-36); Mean Corpuscular Volume 92.7 fL (80-100); Mean Platelet Volume 9.8 fL (7.4-10.4); Monocytes # (auto) 0.83 K/uL (0.11-0.59); Monocytes % (auto) 6.1 %; Neutrophils # (auto) 12.23 K/uL (1.4-6.5); Neutrophils % (auto) 89.3 %; Platelet Count 288 K/uL (130-400); RDW Coefficient of Variation 13.2 % (11.5-14.5); Red Blood Count 3.57 M/uL (4.7-6.1); White Blood Count 13.69 K/uL (4.8-10.8)
[2020-11-11 06:34] LABS: Albumin Level 2.7 gm/dl (3.4-5.0); Calcium 8.1 mg/dl (8.5-10.1); Creatinine Clr Calc Pharmacy 89.7 ml/min; Est GFR (African American) 107.7 ml/min; Est GFR (Non-African American) 92.9 ml/min; Magnesium 2.8 mg/dl (1.8-2.4)
[2020-11-11 06:39] LABS: Albumin Globulin Ratio 0.8 (0.9-2); Bilirubin,Total 0.2 mg/dl (0.2-1); Globulin 3.2 gm/dl (2.5-4.0); Total Protein 5.9 gm/dl (6.4-8.2)
[2020-11-11] MEDS: ALBUT/IPRATROP 3MG/0.5MG NEB 3 ML VIAL NEB SCH ×4 (07:26→19:35)
[2020-11-11] MEDS: INSULIN ASPART 100 UNITS/ML 3 ML PEN SC SCH ×4 (08:00→21:08)
[2020-11-11] MEDS: MoRPHine SULFATE CR 15 MG TABCR PO SCH ×3 (08:10→20:52)
[2020-11-11] MEDS: cefTRIAXone SODIUM 2,000 MG in DEXTROSE 5% 50 ML IV SCH (08:10)
[2020-11-11] MEDS: ACETAMINOPHEN 325 MG TAB PO PRN ×2 (08:11→16:41)
[2020-11-11] MEDS: FAMOTIDINE 20 MG TAB PO SCH ×2 (08:12→20:41)
[2020-11-11] MEDS: busPIRone 15 MG TAB PO SCH ×2 (08:12→20:41)
[2020-11-11] MEDS: SENNA 8.6 MG TAB PO SCH (08:13)
[2020-11-11] MEDS: CYANOCOBALAMIN 500 MCG TABLET (VITAMIN B-12) PO SCH (08:13)
[2020-11-11] MEDS: GABAPENTIN 300 MG CAP PO SCH ×3 (08:14→20:42)
[2020-11-11] MEDS: AZITHROMYCIN 250 MG TAB PO SCH (08:14)
[2020-11-11] MEDS: guaiFENesin 600 MG TABCR PO SCH ×2 (08:14→20:42)
[2020-11-11] MEDS: MULTIVITAMIN TAB PO SCH (08:15)
[2020-11-11] MEDS: PANTOprazole 40 MG TAB PO SCH ×2 (08:15→20:43)
[2020-11-11] MEDS: MEMANTINE HCL 10 MG TAB PO SCH ×2 (08:15→20:43)
[2020-11-11] MEDS: HEPARIN SOD 5,000 UNIT/0.5 ML VIAL SQ SCH ×2 (08:15→20:42)
[2020-11-11] MEDS: POLYETHYLENE (MIRALAX) 17 GM PACK PO SCH (08:18)
[2020-11-11 09:10] LABS: Adenovirus PCR Not Detected (NotDetected); Bordetella parapertussis PCR Not Detected (NotDetected); Bordetella pertussis PCR Not Detected (NotDetected); Chlamydia pneumoniae PCR Not Detected (NotDetected); Coronavirus 229E PCR Not Detected (NotDetected); Coronavirus CoV-2 (COVID19)PCR Not Detected (NotDetected); Coronavirus HKU1 PCR Not Detected (NotDetected); Coronavirus NL63 PCR Not Detected (NotDetected); Coronavirus OC43PCR Not Detected (NotDetected); Human Metapneumovirus PCR Not Detected (NotDetected); Influenza A PCR Not Detected (NotDetected); Influenza B PCR Not Detected (NotDetected); Mycoplasma pneumoniae PCR Not Detected (NotDetected); Parainfluenza Virus 1 PCR Not Detected (NotDetected); Parainfluenza Virus 2 PCR Not Detected (NotDetected); Parainfluenza Virus 3 PCR Not Detected (NotDetected); Parainfluenza Virus 4 PCR Not Detected (NotDetected); Respiratory Syncytial VirusPCR Not Detected (NotDetected); Rhinovirus/Enterovirus PCR Not Detected (NotDetected)
--- NOTE | 2020-11-11 13:51 | Hospitalist Progress Note ---
Date of Service November 11, 2020 Assessment & Plan (1) Sepsis: 2nd to respiratory illness as below.Likely community acquired PNA Received IVF, stress-dose IV steroids-hypotension resolved Lactate improved to normal CXR with +right infiltrate Procalcitonin is not elevated making bacterial source less likely. COVID and RSV neg, Flu swab was cancelled? [employer] resp panel done on 11/11 and is negative including repeat COVID No sick contacts, no prior PULM disease but does have RA Much improved -continue ceftriaxone and azithro --convert IV steroids to po prednisone and taper back to home dos eof 5mg daily -remove COVID precautions with 2 negative tests 48 hours apart and symptoms improving (2) Pneumonia: as above with rhonchi on exam on right side as well check sputum cx-pinpoint growth-will follow (3) Sepsis associated hypotension: Low BP at presentation likely combination of sepsis, hypovolemia, and addisonian (has been on prednisone for many years). BPs improved with IV fluids and IV stress dose steroids. restart home ENtresto but continue to hold others for now and restart slowly converting to po prednisone from stress dose IV (4) Acute respiratory failure with hypoxia: suspect viral etiology with resulting acute bronchitis. But could be bacterial COVID testing is negative, but false negatives can occur early in the disease course. further, he has not had a COVID vaccine. as anders [employer] negative continue steroids, nebs, supportive care, pulmonary toilet etc. (5) Acute bronchitis: likely due to viral respiratory illness. as above, improving (6) Acute kidney failure: Suspect sepsis-associated ATN in the setting of volume depletion, hyp otension, and multiple nephrotoxic agents (entresto, aldactone, etc). 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 treated with isotonic fluids, hold home diuretics now normal follow BMP (9) Chronic use of steroids: low-dose prednisone as above with IV stress dose, now converting to prednisone 40 and taper off to 5mg (10) Rheumatoid arthritis: on chronic prednisone (11) LBBB (left bundle branch block): chronic no signs of any acute ischemic event (12) Hypertension: holding BP lowering medications in light of hypotension -BPs improved now restart ENtresto hold amlodipine, aldactone,doxazosin (13) Cardiomyopathy, idiopathic: now resolved remains on meds at home for CHF holding them here as above but restarting Entresto (14) Hyperkalemia: mild, improving today down to 5.0 follow BMP in AM (15) DVT prophylaxis: heparin 5000 BID Dispo-continued stay, move to medical floor Admission and Anticipated Discharge Date Admission Date: November 09, 2020 Subjective feeling better, less cough, still dinora esputum production no nausea, is eating well, moving bowels, no diarrhea tele with NSR rates 80-90s, double counting on rates on tele-appears 180-200s and is false Review of Systems Review of Systems: All systems reviewed & are unremarkable except as noted in HPI & below Physical Exam Constitutional: WD/WN, vitals as above Eyes: + anicteric sclerae Neck: trachea midline, no thyromegaly Respiratory: normal respiratory effort Auscultation: + rhonchi (right lower and middle lung chester); no crackles and no wheezes Cardiovascular: Rate/Rhythm: regular rate and regular rhythm Heart Sounds: no murmur Extremities: no calf tenderness and no edema Chest (Breasts): Chest: normal inspection of chest Gastrointestinal (Abdomen): normal bowel sounds, soft, nontender, no hepatosplenomegaly Musculoskeletal: Extremities: extremities normal to inspection; no cyanosis and no clubbing Skin: no rashes, warm and dry Neurologic: moves all extremities and awake; no focal motor deficits Psychiatric: A+Ox3, euthymic affect Lymphatic: no lymphedema Results & Data Results & Data ([facility]) Vital Signs (Past 12 Hours) Vital Signs Temp Pulse Pulse Resp BP Pulse Ox Pulse Ox 11/11/20 12:00 97 11/11/20 11:44 36.9 C 90 18 133/73 96 11/11/20 11:24 84 18 95 11/11/20 10:00 97 11/11/20 08:00 87 11/11/20 07:27 71 16 98 11/11/20 07:07 36.5 C 86 20 158/91 H 94 11/11/20 03:38 37.2 C 92 H 18 131/87 94 Laboratory Results 11/11/20 11/11/20 11/11/20 Range/Units 11:45 08:00 08:00 WBC (4.8-10.8) K/uL RBC (4.7-6.1) M/uL Hgb (14.0-18.0) g/dL Hct (42-52) % MCV (80-100) fL MCH (25-34) pg MCHC (32-36) g/dL RDW Std Deviation (36.4-46.3) fL RDW Coeff of Jaja (11.5-14.5) % Plt Count (130-400) K/uL MPV (7.4-10.4) fL Immature Gran % (Auto) % Neut % (Auto) % Lymph % (Auto) % Charles % (Auto) % Eos % (Auto) % Baso % (Auto) % Neut # (Auto) (1.4-6.5) K/uL Lymph # (Auto) (1.2-3.4) K/uL Charles # (Auto) (0.11-0.59) K/uL Eos # (Auto) (0-0.5) K/uL Baso # (Auto) (0-0.2) K/uL Immature Gran # (Auto) (0.00-0.02) K/uL Sodium (136-145) mmol/L Potassium (3.5-5.1) mmol/L Chloride (98-107) mmol/L Carbon Dioxide (21-32) mmol/L Anion Gap (3-11) BUN (7-18) mg/dl Creatinine (0.6-1.4) mg/dl Est Cr Clr Drug Dosing ml/min Est GFR ( Amer) ml/min Est GFR (Non-Af Amer) ml/min BUN/Creatinine Ratio (10-20) Glucose (70-99) mg/dl POC Glucose 132 H (70-99) mg/dl Calcium (8.5-10.1) mg/dl Magnesium (1.8-2.4) mg/dl Total Bilirubin (0.2-1) mg/dl AST (15-37) U/L ALT (12-78) U/L Alkaline Phosphatase (45-117) U/L Total Protein (6.4-8.2) gm/dl Albumin (3.4-5.0) gm/dl Globulin (2.5-4.0) gm/dl Albumin/Globulin Ratio (0.9-2) Adenovirus (PCR) Not Detected (NotDetected) B. pertussis DNA (PCR) Not Detected (NotDetected) B.parapertussis DNA PCR Not Detected (NotDetected) C. pneumoniae DNA (PCR) Not Detected (NotDetected) Coronavirus OC43 (PCR) Not Detected (NotDetected) Coronavirus HKU1 (PCR) Not Detected (NotDetected) Coronavirus 229E (PCR) Not Detected (NotDetected) COVID-19 Eval Order RESPNP at [facility] SARS-CoV-2 (PCR) Not Detected (NotDetected) Coronavirus NL63 (PCR) Not Detected (NotDetected) Human Metapneumovir PCR Not Detected (NotDetected) Influenza Type A (PCR) Not Detected (NotDetected) Influenza Type B (PCR) Not Detected (NotDetected) M. pneumoniae (PCR) Not Detected (NotDetected) Parainfluenza 1 (PCR) Not Detected (NotDetected) Parainfluenza 2 (PCR) Not Detected (NotDetected) Parainfluenza 3 (PCR) Not Detected (NotDetected) Parainfluenza 4 (PCR) Not Detected (NotDetected) RSV (PCR) Not Detected (NotDetected) Entero/Rhino (PCR) Not Detected (NotDetected) Miscellaneous Test 11/11/20 11/11/20 11/11/20 Range/Units 07:19 05:33 05:33 WBC (4.8-10.8) K/uL RBC (4.7-6.1) M/uL Hgb (14.0-18.0) g/dL Hct (42-52) % MCV (80-100) fL MCH (25-34) pg MCHC (32-36) g/dL RDW Std Deviation (36.4-46.3) fL RDW Coeff of Jaja (11.5-14.5) % Plt Count (130-400) K/uL MPV (7.4-10.4) fL Immature Gran % (Auto) % Neut % (Auto) % Lymph % (Auto) % Charles % (Auto) % Eos % (Auto) % Baso % (Auto) % Neut # (Auto) (1.4-6.5) K/uL Lymph # (Auto) (1.2-3.4) K/uL Charles # (Auto) (0.11-0.59) K/uL Eos # (Auto) (0-0.5) K/uL Baso # (Auto) (0-0.2) K/uL Immature Gran # (Auto) (0.00-0.02) K/uL Sodium 138 (136-145) mmol/L Potassium 5.0 (3.5-5.1) mmol/L Chloride 106 (98-107) mmol/L Carbon Dioxide 28 (21-32) mmol/L Anion Gap 4.0 (3-11) BUN 27 H (7-18) mg/dl Creatinine 0.86 D (0.6-1.4) mg/dl Est Cr Clr Drug Dosing 89.7 ml/min Est GFR ( Amer) 107.7 ml/min Est GFR (Non-Af Amer) 92.9 ml/min BUN/Creatinine Ratio 32.0 H (10-20) Glucose 123 H (70-99) mg/dl POC Glucose 124 H (70-99) mg/dl Calcium 8.1 L (8.5-10.1) mg/dl Magnesium 2.8 H (1.8-2.4) mg/dl Total Bilirubin 0.2 (0.2-1) mg/dl AST 16 (15-37) U/L ALT 17 (12-78) U/L Alkaline Phosphatase 93 (45-117) U/L Total Protein 5.9 L (6.4-8.2) gm/dl Albumin 2.7 L (3.4-5.0) gm/dl Globulin 3.2 (2.5-4.0) gm/dl Albumin/Globulin Ratio 0.8 L (0.9-2) Adenovirus (PCR) (NotDetected) B. pertussis DNA (PCR) (NotDetected) B.parapertussis DNA PCR (NotDetected) C. pneumoniae DNA (PCR) (NotDetected) Coronavirus OC43 (PCR) (NotDetected) Coronavirus HKU1 (PCR) (NotDetected) Coronavirus 229E (PCR) (NotDetected) COVID-19 Eval Order SARS-CoV-2 (PCR) (NotDetected) Coronavirus NL63 (PCR) (NotDetected) Human Metapneumovir PCR (NotDetected) Influenza Type A (PCR) (NotDetected) Influenza Type B (PCR) (NotDetected) M. pneumoniae (PCR) (NotDetected) Parainfluenza 1 (PCR) (NotDetected) Parainfluenza 2 (PCR) (NotDetected) Parainfluenza 3 (PCR) (NotDetected) Parainfluenza 4 (PCR) (NotDetected) RSV (PCR) (NotDetected) Entero/Rhino (PCR) (NotDetected) Miscellaneous Test Cancelled 11/11/20 11/10/20 11/10/20 Range/Units 05:33 20:08 16:59 WBC 13.69 H (4.8-10.8) K/uL RBC 3.57 L (4.7-6.1) M/uL Hgb 10.9 L (14.0-18.0) g/dL Hct 33.1 L (42-52) % MCV 92.7 (80-100) fL MCH 30.5 (25-34) pg MCHC 32.9 (32-36) g/dL RDW Std Deviation 45.0 (36.4-46.3) fL RDW Coeff of Jaja 13.2 (11.5-14.5) % Plt Count 288 (130-400) K/uL MPV 9.8 (7.4-10.4) fL Immature Gran % (Auto) 0.2 % Neut % (Auto) 89.3 % Lymph % (Auto) 4.4 % Charles % (Auto) 6.1 % Eos % (Auto) 0.0 % Baso % (Auto) 0.0 % Neut # (Auto) 12.23 H (1.4-6.5) K/uL Lymph # (Auto) 0.60 L (1.2-3.4) K/uL Charles # (Auto) 0.83 H (0.11-0.59) K/uL Eos # (Auto) 0.00 (0-0.5) K/uL Baso # (Auto) 0.00 (0-0.2) K/uL Immature Gran # (Auto) 0.03 H (0.00-0.02) K/uL Sodium (136-145) mmol/L Potassium (3.5-5.1) mmol/L Chloride (98-107) mmol/L Carbon Dioxide (21-32) mmol/L Anion Gap (3-11) BUN (7-18) mg/dl Creatinine (0.6-1.4) mg/dl Est Cr Clr Drug Dosing ml/min Est GFR ( Amer) ml/min Est GFR (Non-Af Amer) ml/min BUN/Creatinine Ratio (10-20) Glucose (70-99) mg/dl POC Glucose 144 H 112 H (70-99) mg/dl Calcium (8.5-10.1) mg/dl Magnesium (1.8-2.4) mg/dl Total Bilirubin (0.2-1) mg/dl AST (15-37) U/L ALT (12-78) U/L Alkaline Phosphatase (45-117) U/L Total Protein (6.4-8.2) gm/dl Albumin (3.4-5.0) gm/dl Globulin (2.5-4.0) gm/dl Albumin/Globulin Ratio (0.9-2) Adenovirus (PCR) (NotDetected) B. pertussis DNA (PCR) (NotDetected) B.parapertussis DNA PCR (NotDetected) C. pneumoniae DNA (PCR) (NotDetected) Coronavirus OC43 (PCR) (NotDetected) Coronavirus HKU1 (PCR) (NotDetected) Coronavirus 229E (PCR) (NotDetected) COVID-19 Eval Order SARS-CoV-2 (PCR) (NotDetected) Coronavirus NL63 (PCR) (NotDetected) Human Metapneumovir PCR (NotDetected) Influenza Type A (PCR) (NotDetected) Influenza Type B (PCR) (NotDetected) M. pneumoniae (PCR) (NotDetected) Parainfluenza 1 (PCR) (NotDetected) Parainfluenza 2 (PCR) (NotDetected) Parainfluenza 3 (PCR) (NotDetected) Parainfluenza 4 (PCR) (NotDetected) RSV (PCR) (NotDetected) Entero/Rhino (PCR) (NotDetected) Miscellaneous Test PG Care Time/CCT Total # of Minutes Spent Total Time Spent with Patient: Total time spent is greater than 50% in coor dination of care (as documented) at patient's floor/unit and/or counseling patient: Coding Level of Care Code 46932 Subseq Hosp Care Lvl 3 Diagnoses Sepsis A41.9 Pneumonia J18.9 Sepsis associated hypotension A41.9; I95.9 Acute respiratory failure with hypoxia J96.01 Acute bronchitis J20.9 Acute kidney failure N17.9 Chronic back pain M54.9; G89.29 Hyponatremia E87.1 Chronic use of steroids Rheumatoid arthritis M06.9 Rheumatoid arthritis location: unspecified site Rheumatoid factor presence: unspecified presence LBBB (left bundle branch block) I44.7 Hypertension I10 Hypertension type: essential hypertension Cardiomyopathy, idiopathic I42.8 Hyperkalemia E87.5 DVT prophylaxis Z29.9 (1) Rheumatoid arthritis Rheumatoid arthritis location: unspecified site Rheumatoid factor presence: unspecified presence Qualified Code(s): M06.9 - Rheumatoid arthritis, unspecified (2) Hypertension Hypertension type: essential hypertension Qualified Code(s): I10 - Essential (primary) hypertension
[2020-11-11] MEDS ORDERED: cefTRIAXone SODIUM 1,000 MG in DEXTROSE 5% 50 ML IV SCH (14:28)
[2020-11-11] MEDS: DULoxetine HCL 30 MG CAP PO SCH (20:41)
[2020-11-11] MEDS: VALSARTAN/SACUBITRIL 103/97MG TAB PO SCH (20:52)
[2020-11-11] MEDS: predniSONE 20 MG TAB PO SCH (20:52)
[2020-11-11] MEDS: LABETALOL HCL 100 MG TAB PO SCH (20:53)
[2020-11-12] MEDS: ACETAMINOPHEN 325 MG TAB PO PRN ×2 (03:03→08:44)
[2020-11-12] MEDS ORDERED: KETOROLAC TROMETHAMINE 15 MG/ML VIAL IV ONE (04:48)
[2020-11-12] MEDS ORDERED: KETOROLAC TROMETHAMINE 15 MG/ML VIAL ONE (04:52)
[2020-11-12] MEDS: ALBUT/IPRATROP 3MG/0.5MG NEB 3 ML VIAL NEB SCH ×2 (07:43→11:19)
[2020-11-12] MEDS: MoRPHine SULFATE CR 15 MG TABCR PO SCH (08:45)
[2020-11-12] MEDS: VALSARTAN/SACUBITRIL 103/97MG TAB PO SCH (08:45)
[2020-11-12] MEDS: LABETALOL HCL 100 MG TAB PO SCH (08:45)
[2020-11-12] MEDS: PANTOprazole 40 MG TAB PO SCH (08:46)
[2020-11-12] MEDS: predniSONE 20 MG TAB PO SCH (08:46)
[2020-11-12] MEDS: MEMANTINE HCL 10 MG TAB PO SCH (08:46)
[2020-11-12] MEDS: POLYETHYLENE (MIRALAX) 17 GM PACK PO SCH (08:46)
[2020-11-12] MEDS: guaiFENesin 600 MG TABCR PO SCH (08:47)
[2020-11-12] MEDS: GABAPENTIN 300 MG CAP PO SCH (08:47)
[2020-11-12] MEDS: MULTIVITAMIN TAB PO SCH (08:48)
[2020-11-12] MEDS: SENNA 8.6 MG TAB PO SCH (08:48)
[2020-11-12] MEDS: FAMOTIDINE 20 MG TAB PO SCH (08:48)
[2020-11-12] MEDS: busPIRone 15 MG TAB PO SCH (08:48)
[2020-11-12] MEDS: AZITHROMYCIN 250 MG TAB PO SCH (08:49)
[2020-11-12] MEDS: CYANOCOBALAMIN 500 MCG TABLET (VITAMIN B-12) PO SCH (08:49)
[2020-11-12] MEDS: HEPARIN SOD 5,000 UNIT/0.5 ML VIAL SQ SCH (08:50)
[2020-11-12] MEDS: INSULIN ASPART 100 UNITS/ML 3 ML PEN SC SCH ×2 (08:52→12:41)
--- NOTE | 2020-11-12 17:59 | Discharge Summary ---
Date of Service November 12, 2020 Admission HPI Per Admitting Provider 60yo male with steroid-dependent RA, chronic pain syndrome on narcotics, chronic LBBB, and prior cardiomyopathy presents with cough, wheezing, chest congestion, fever to 100.8 degrees, weakness, fatigue, and chest tightness. Had no appetite today. No loss of taste or smell. No sore throat but has had nasal congestion. Small amount of diarrhea last night. He normally suffers from constipation. No nausea, no vomiting. No sick contacts. No travel. He did NOT obtain the COVID vaccine. He denies any personal h/o COVID-19 infection. Principal Diagnosis Bronchitis, COPD exacerbation Discharge Exam Constitutional WD/WN, vitals as above Eyes EOM intact bilaterally; no conjunctival abnormality ENMT external ear and nose normal, oropharynx normal Neck trachea midline, no thyromegaly normal visual inspection Respiratory normal respiratory effort, lungs clear to auscultation no respiratory distress Cardiovascular RRR, no murmur, no edema Gastrointestinal (Abdomen) Inspection/Auscultation: abdomen normal to inspection; abdomen not distended Musculoskeletal no cyanosis or clubbing, extremities motor strength 5/5 Skin no rashes, warm and dry Neurologic moves all extremities and awake Psychiatric Orientation: alert, oriented to person and cooperative Discharge Data Allergies Allergy/AdvReac Type Severity Reaction Status Date / Time No Known Drug Allergies Allergy Verified 11/09/20 12:10 Consultations 11/09/20 13:13 ED Decision to Admit Stat Ordered Studies 11/09/20 13:12 US venous doppler LE Stat Hospital Course (1) Sepsis: 2nd to respiratory illness as below. Likely community acquired PNA. Received IVF, stress-dose IV steroids-hypotension resolved. CXR with +right infiltrate - Continue azithro on discharge x 3 more days. - Continue prednisone 40 mg PO daily, then return to home dosing. (2) Pneumonia: as above (3) Sepsis associated hypotension: Low BP at presentation likely combination of sepsis, hypovolemia, and addisonian (has been on prednisone for many years). - BPs improved with IV fluids and IV stress dose steroids. - Restarted home ENtresto but continue to hold others for now and restart slowly (4) Acute respiratory failure with hypoxia: suspect viral etiology with resulting acute bronchitis. But could be bacterial. (5) Acute bronchitis: likely due to viral respiratory illness. as above, improving (6) Acute kidney failure: Suspect sepsis-associated ATN in the setting of volume depletion, hypotension, and multiple nephrotoxic agents (entresto, aldactone, etc). 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 (7) Chronic back pain: lumbar continue home regimen of morphine has been on this regimen for several years continue gabapentin 300 tid (8) Hyponatremia: Likely due to NAHUN/ARF and volume depletion. treated with isotonic fluids, hold home diuretics now normal follow BMP (9) Chronic use of steroids: low-dose prednisone as above with IV stress dose, now converting to prednisone 40 and taper off to 5mg (10) Rheumatoid arthritis: on chronic prednisone (11) LBBB (left bundle branch block): chronic no signs of any acute ischemic event (12) Hypertension: holding BP lowering medications in light of hypotension -BPs improved now restart ENtresto hold amlodipine, aldactone,doxazosin (13) Cardiomyopathy, idiopathic: now resolved remains on meds at home for CHF holding them here as above but restarting Entresto (14) Hyperkalemia: mild, improving today down to 5.0 follow BMP in AM (15) DVT prophylaxis: heparin 5000 BID Dispo-continued stay, move to medical floor Total Time Total Time Spent Total Time Spent (In Minutes): 35 Discharge Plan Discharge Items Patient Disposition: Home - Self-Care Reason For Visit: ACUTE HYPOXIC RESP FAILURE, ACUTE BRONCHITIS Discharge Diagnosis: Acute bronchitis, breathing issue Activity: Resume your previous activity Non-emergency contact: Primary Care Provider Call non-emergency contact if: your symptoms worsen Follow-up/Referrals: Giuseppe Romero MD [Primary Care Provider] - (You PCP office will phone with you a follow up appt.) Diet: Regular Addtl Attending Provider Instructions: You were admitted with breathing issues. Luckily, we did not see a large pneumonia, but there was enough airway inflammation to cause you to have shortness of breath. We are sending you home with a few more days of antibiotics and steroids. This will help keep your airways open. I'm sending you out with 3 more days of antibiotics and steroids. Take the first day of azithromycin and prednisone tomorrow. After your 3 additional days of both, please return to your normal prednisone dosing of 5 mg (this is a long- term medication for you from what I see). Please hold your spironolactone for a few more days. 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 For now, I do not want to restart too many medications back at once to make sure you are doing well. Pending Studies at Discharge: No Stand-Alone Forms: My [facility], Smoking Cessation Medications and DC Order Prescriptions: New azithromycin 250 mg Tablet 250 mg PO QAM Qty: 3 RF: 0 benzonatate [Tessalon Perles] 100 mg Capsule 100 mg PO Q8H PRN (Reason: cough) Qty: 20 RF: 0 prednisone 20 mg Tablet 40 mg PO QAM Qty: 6 RF: 0 Continued albuterol sulfate 90 mcg/actuation HFA aerosol inhaler See Rx Instructions .ROUTE .COMPLEX PRN (Reason: shortness of breath or wheezing) Qty: 8.5 RF: 11 amlodipine 5 mg Tablet 5 mg PO QAM RF: 0 doxazosin 8 mg Tablet 8 mg PO QAM RF: 0 gabapentin 100 mg Capsule 100 mg PO QAM RF: 0 prednisone 5 mg Tablet 5 mg PO QAM RF: 0 omeprazole 20 mg Capsule,Delayed Release(Dr/Ec) 20 mg PO BID RF: 0 labetalol 100 mg tablet 50 mg PO BID RF: 0 buspirone 15 mg tablet 15 mg PO BID RF: 0 cyanocobalamin (vitamin B-12) 1,000 mcg Capsule 1,000 mcg PO QAM RF: 0 Entresto 97-103 mg Tablet 1 tab PO BID RF: 0 multivitamin Tablet 1 tab PO QAM RF: 0 gabapentin 300 mg Capsule 300 mg PO TID RF: 0 memantine 10 mg tablet 10 mg PO BID RF: 0 duloxetine 30 mg capsule,delayed release(DR/EC) 30 mg PO HS RF: 0 morphine [MS Contin] 30 mg tablet extended release 30 mg PO TID RF: 0 morphine 15 mg tablet 15 mg PO QID PRN (Reason: pain) Qty: 10 RF: 0 Discontinued spironolactone 25 mg tablet 25 mg PO BID RF: 0 Discharge Orders: Discharge Order (Routine); Ordered 11/12/20 Ordered By: Carl Salazar/Other Patient Handouts: Preventing Deep Vein Thrombosis Admission Data Admit Date/Time: 11/09/20 14:57 Attending Provider: Carl Casey Admit Provider: Sy Flores Primary Care Provider: Giuseppe Romero Other Providers: Carl Casey Other Interventions: Discharge Summary Assessment (RN) Last Done: 11/12/20 12:44 Coding Level of Care Code D/C Day Management >30 mins Diagnoses Sepsis A41.9 Pneumonia J18.9 Sepsis associated hypotension A41.9; I95.9 Acute respiratory failure with hypoxia J96.01 Acute bronchitis J20.9 Acute kidney failure N17.9 Chronic back pain M54.9; G89.29 Hyponatremia E87.1 Chronic use of steroids Rheumatoid arthritis M06.9 Rheumatoid arthritis location: unspecified site Rheumatoid factor presence: unspecified presence LBBB (left bundle branch block) I44.7 Hypertension I10 Hypertension type: essential hypertension Cardiomyopathy, idiopathic I42.8 Hyperkalemia E87.5 DVT prophylaxis Z29.9
[2020-11-15 17:16] LABS: Influenza Type A 1:16 titer (<1:8); Influenza Type B 1:16 titer (<1:8)
== END 2020-11-12 14:10 | disposition home or self-care (01) | DRG 871 ==
LOC: ED 11:17 → 2E 14:57 → SUATTDRO 14:57 → 2E 15:19 → 3N 11-11 14:53

== ENCOUNTER 2021-06-24 02:53 | Observation (INO) ==
[2021-06-24] MEDS ORDERED: ONDANSETRON INJ 2 MG/ML 2 ML VIAL IV STA ×2 (03:08→08:44)
[2021-06-24] MEDS ORDERED: ACETAMINOPHEN 1,000 MG/100 ML VIAL IV STA (03:08)
--- NOTE | 2021-06-24 03:18 | Emergency Department Note ---
History of Present Illness General Chief complaint: Abdominal Pain Stated complaint: ABDOMINAL PAIN Time Seen by Provider: 06/24/21 03:00 Source: patient Mode of arrival: wheelchair Limitations: no limitations History of Present Illness Provider complaint: Abdominal pain, nausea/vomiting Onset (ago): week(s) 1 Location: abdomen Maximum Pain Intensity: 8 Associated symptoms: + loss of appetite, + malaise and + nausea/vomiting; no cough, no fever/chills, no headaches or no shortness of breath Treatments prior to arrival: none This is a 60-year-old male who presents the emergency department complaining of abdominal pain, nausea and vomiting. States he first started not feeling well last weekend, but thought he was slightly improved during the week. He states on Thursday he began having worsening pain, and nausea again. Patient states he vomited several times today and pain seemed worse. He denies fevers. Patient denies any hematemesis, hematochezia, or melena. Patient states he does not use any blood thinners. Patient denies any history of peptic ulcer disease, IBS, or IBD. Patient states he has previously had colonoscopies that were reported to him as unremarkable. He denies any recent dietary change or known sick contact. No recent medication change. No treatment prior to arrival. No antiplatelet or anticoagulation therapy. Pt seen during a time of high acuity and national emergency pandemic while wearing PPE. Home Medications Medication Instructions Recorded Confirmed Type amlodipine 5 mg tablet 5 mg PO QAM 03/24/18 06/24/21 History doxazosin 8 mg tablet 8 mg PO QAM 03/24/18 06/24/21 History gabapentin 100 mg capsule 100 mg PO QAM 03/24/18 06/24/21 History omeprazole 20 mg capsule,delayed 20 mg PO BID 03/24/18 06/24/21 History release prednisone 5 mg tablet 5 mg PO QAM 03/24/18 06/24/21 History cyanocobalamin (vitamin B-12) 1,000 mcg PO QAM 07/21/19 06/24/21 History 1,000 mcg capsule sacubitril 97 mg-valsartan 103 mg 1 tab PO BID 10/20/19 06/24/21 History tablet (Entresto) labetalol 100 mg tablet 50 mg PO BID tab 11/04/19 06/24/21 History multivitamin 1 tab PO QAM 01/19/20 06/24/21 History duloxetine 30 mg capsule,delayed 30 mg PO HS 06/28/20 06/24/21 History release gabapentin 300 mg capsule 300 mg PO TID 06/28/20 06/24/21 History memantine 10 mg tablet 10 mg PO BID 06/28/20 06/24/21 History buspirone 15 mg tablet 15 mg PO BID tab 07/04/20 06/24/21 History morphine 30 mg tablet,extended 30 mg PO TID 11/09/20 06/24/21 History release (MS Contin) amoxicillin 500 mg tablet 2,000 mg PO ONCE #4 tab 03/29/21 06/24/21 Rx ashwagandha root extract 300 mg 300 mg PO HS 05/30/21 06/24/21 History capsule cholecalciferol (vitamin D3) 125 125 mcg PO 2XWK 05/30/21 06/24/21 History mcg (5,000 unit) tablet (Vitamin D3) ferrous sulfate 325 mg (65 mg 325 mg PO QAM 05/30/21 06/24/21 History iron) tablet morphine 15 mg immediate release 15 mg PO DIRECTED PRN 05/30/21 06/24/21 History tablet spironolactone 25 mg tablet 25 mg PO BID 05/30/21 06/24/21 History prednisone 1 mg tablet 3 mg PO DAILY 06/24/21 06/24/21 History Allergies Allergy/AdvReac Type Severity Reaction Status Date / Time No Known Drug Allergies Allergy Verified 06/24/21 07:05 Past Med/Surg History Medical History Cardiomyopathy Nonischemic- resolved Previous EF 35-40%; now 60-65% (06/2020 echo)-F/U KIP MARK Chronic use of steroids Congestive heart failure F/U KIP MARK Elevated hemidiaphragm Right GERD (gastroesophageal reflux disease) Well controlled and stable Hypertension Stable Kidney stones No recent issues LBBB (left bundle branch block) CHRONIC. Restrictive airway disease Pt denies- was inhalers in the past - not affective- no longer takes Rheumatoid arthritis Steroid dependent- follows with rheum - Dr. Abel LOPEZ (shortness of breath) on exertion Spinal stenosis of lumbar region at multiple levels Surgical History H/O cervical spine surgery History of colonoscopy History of lithotripsy History of lumbar fusion X 2 WITH HARDWARE L2-L4 decompression-fusion 08/06/2020: Grade 1 view, Casey#2, ETT#8.0 atra umatic x 1. No issues per anesthesia postop progress note. History of total knee replacement 11/11/2019: SAB + PNB. No issues per anesthesia postop progress note. 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 Beliefs That Will Affect Care: None marital status: Single Current Living Situation: Significant Other Current Living Situation Comment: LIVES WITH [facility] current occupational status: retired and disabled current occupation: [employer] How many Children do You have: 2 Feels Safe at Home: Yes Assistive Devices: Cane and Glasses Review of Systems A total of 10 systems reviewed and were otherwise negative All systems reviewed & are unremarkable except as noted in HPI & below Physical Exam Vital Signs Vital Signs - 24 hr 06/24/21 02:57 06/24/21 03:55 06/24/21 05:00 Temperature 36.2 C L 36.6 C Temperature Source Temporal Artery Scan Oral Pulse Rate 113 H Pulse Rate [Apical] 104 H 92 H Pulse Rate from SpO2 Sensor Pulse Rhythm [Apical] Regular Regular Pulse Strength [Apical] Normal Normal Respiratory Rate 18 20 16 Respiratory Effort / Characteristics Non-Labored Spontaneous Non-Labored Spontaneous Respiratory Depth Normal Normal Normal Respiratory Pattern Regular Regular Blood Pressure 146/91 H Blood Pressure [Right Arm] 157/106 H 123/88 Blood Pressure Mean 109 Blood Pressure Mean [Right Arm] 123 99 Blood Pressure Position [Right Arm] Semi-fowlers Semi-fowlers Pulse Oximetry 94 95 95 Oxygen Delivery Method Room Air Room Air Room Air Sepsis Recent Fever Within 48 Hours No Sepsis New/Unexplained Change in Mental Status N/A Sepsis Action Taken by Nursing No Action Required 06/24/21 06:30 06/24/21 07:00 Temperature Temperature Source Pulse Rate 88 81 Pulse Rate [Apical] Pulse Rate from SpO2 Sensor 88 82 Pulse Rhythm [Apical] Pulse Strength [Apical] Respiratory Rate 16 17 Respiratory Effort / Characteristics Respiratory Depth Respiratory Pattern Blood Pressure 128/81 138/89 Blood Pressure [Right Arm] Blood Pressure Mean 96 105 Blood Pressure Mean [Right Arm] Blood Pressure Position [Right Arm] Pulse Oximetry 94 95 Oxygen Delivery Method Sepsis Recent Fever Within 48 Hours Sepsis New/Unexplained Change in Mental Status Sepsis Action Taken by Nursing GENERAL: alert, unwell appearing, well nourished, no distress, non-toxic EYE EXAM: normal conjunctiva, PERRL and EOM's grossly intact OROPHARYNX: no exudate, no erythema, lips, buccal mucosa, and tongue normal and mucous membranes are moist NECK: supple, no nuchal rigidity, no adenopathy, non-tender LUNGS: Clear to auscultation. Normal chest wall mechanics, no w/r/r HEART: no murmurs, S1 normal and S2 normal ABDOMEN: abdomen soft, non-tender, normo-active bowel sounds, no masses, no rebound or guarding. BACK: Back is symmetrical on inspection and there is no deformity, no midline tenderness, no CVA tenderness. SKIN: no rashes and no bruising UPPER EXTREMITIES: upper extremities are grossly normal. FROM, nml pulses b/l. LOWER EXTREMITIES: No pitting edema. FROM, nml pulses b/l. NEURO EXAM: Normal sensorium, cranial nerves II-XII grossly intact, normal spee ch, no gross weakness of arms, no gross weakness of legs. Gross sensation intact. Course Course 0635: Updated pt at bedside. 07: Discussed with Hardik Escobar PA-C with gen surg. Administered Medications Fentanyl Citrate (Fentanyl Citrate 100 Mcg/2 Ml Vial) 50 mcg IV Q15M PRN PRN Reason: Pain Stop: 07/08/21 03:51 Last Admin: 06/24/21 07:50 Dose: 50 mcg Documented by: [id number] Admin: 06/24/21 05:56 Dose: 50 mcg Documented by: [id number] Admin: 06/24/21 04:02 Dose: 50 mcg Documented by: [id number] Sodium Chloride (Nss 1000ml) 1,000 mls @ 125 mls/hr IV .Q8H WILLIAM Stop: 07/24/21 03:14 Last Admin: 06/24/21 03:31 Dose: 125 mls/hr Documented by: [id number] Discontinued Medications Acetaminophen (Ofirmev) 1,000 mg in 100 mls @ 400 mls/hr IV NOW STA Stop: 06/24/21 03:22 Last Infusion: 06/24/21 04:07 Dose: 0 mls/hr Documented by: [id number] Admin: 06/24/21 03:32 Dose: 400 mls/hr Documented by: [id number] Ioversol (Optiray 320 100ml) 94 ml IV ONCE ONE Stop: 06/24/21 05:45 Last Admin: 06/24/21 05:44 Dose: 94 ml Documented by: [id number] Ondansetron HCl (Ondansetron Inj 2 Mg/Ml 2 Ml Vial) 4 mg IV NOW STA Stop: 06/24/21 03:09 Last Admin: 06/24/21 03:28 Dose: 4 mg Documented by: [id number] Medical Decision Making Differential Diagnosis Differential diagnoses includes but is not limited to gastritis, peptic ulcer disease, GERD, gallbladder disease, pancreatitis, small bowel obstruction, acute coronary syndrome, pericarditis, ischemic bowel, irritable bowel disease, irritable bowel syndrome, appendicitis, diverticulitis, malignancy, hernia, urinary tract infection, torsion, [/ectopic (if female)], perforation, trauma, infectious. Medical Records Attestation: I reviewed the patient's medical records. Home Medications Current Medication List: was personally reviewed by me Laboratory Data Attestation: I reviewed the patient's lab results. Result diagrams: 06/24/21 04:50 06/24/21 04:50 Lab Results 06/24/21 06/24/21 06/24/21 Range/Units 03:30 04:50 04:50 WBC 7.59 (4.8-10.8) K/uL RBC 3.74 L (4.7-6.1) M/uL Hgb 11.9 L (14.0-18.0) g/dL Hct 35.0 L (42-52) % MCV 93.6 (80-100) fL MCH 31.8 (25-34) pg MCHC 34.0 (32-36) g/dL RDW Std Deviation 45.5 (36.4-46.3) fL RDW Coeff of Jaja 13.2 (11.5-14.5) % Plt Count 228 (130-400) K/uL MPV 9.1 (7.4-10.4) fL Immature Gran % (Auto) 0.4 % Neut % (Auto) 79.7 % Lymph % (Auto) 10.7 % Stephenson % (Auto) 8.8 % Eos % (Auto) 0.3 % Baso % (Auto) 0.1 % Neut # (Auto) 6.05 (1.4-6.5) K/uL Lymph # (Auto) 0.81 L (1.2-3.4) K/uL Stephenson # (Auto) 0.67 H (0.11-0.59) K/uL Eos # (Auto) 0.02 (0-0.5) K/uL Baso # (Auto) 0.01 (0-0.2) K/uL Immature Gran # (Auto) 0.03 H (0.00-0.02) K/uL Sodium 128 L (136-145) mmol/L Potassium 3.8 (3.5-5.1) mmol/L Chloride 96 L (98-107) mmol/L Carbon Dioxide 25 (21-32) mmol/L Anion Gap 7 (3-11) BUN 12 (6-23) mg/dl Creatinine 0.87 (0.6-1.4) mg/dl Est Cr Clr Drug Dosing 87.3 ml/min Est GFR ( Amer) 107.2 ml/min Est GFR (Non-Af Amer) 92.5 ml/min BUN/Creatinine Ratio 13.8 (10-20) Glucose 92 (70-99(Fasting)) mg/dl Lactate 1.0 (0.4-2.0) mmol/L Calcium 7.7 L (8.5-10.1) mg/dl Magnesium 1.9 (1.7-2.4) mg/dl Total Bilirubin 0.3 (0.2-1.0) mg/dl AST 18 (13-39) U/L ALT 11 (7-52) U/L Alkaline Phosphatase 55 (34-104) U/L Troponin I < 0.03 (0-0.04) ng/ml Total Protein 5.5 L (6.0-8.3) gm/dl Albumin 3.1 L (3.4-5.0) gm/dl Globulin 2.4 L (2.5-4.0) gm/dl Albumin/Globulin Ratio 1.3 (0.9-2) Lipase 73 (11-82) U/L Urine Color Urine Appearance (Clear) Urine pH (4.5-7.5) Ur Specific Leonidas (1.000-1.030) Urine Protein (Negative) Urine Glucose (UA) (Negative) Urine Ketones (Negative) Urine Blood (Negative) Urine Nitrite (Negative) Urine Bilirubin (Negative) Urine Urobilinogen (Negative) Ur Leukocyte Esterase (Negative) Urine WBC (Auto) (0-5) /hpf Urine RBC (Auto) (0-4) /hpf U Hyaline Cast (Auto) (0-5) /lpf U Epithel Cells (Auto) (0-5) /lpf Urine Bacteria (Auto) (Negative) Stl C. cayetanensis PCR (NotDetected) Stool Rotavirus A PCR (NotDetected) Stl Adenov F 40/41 PCR (NotDetected) Stool Astrovirus (PCR) (NotDetected) Stool Campylobacter PCR (NotDetected) Stl C. diff Tox A/B PCR (NotDetected) Stool Cryptosporidium PCR (NotDetected) Stl E.coli Shiga Tox PCR (NotDetected) Stl Enterotoxigenic E PCR (NotDetected) Stool EPEC (PCR) (NotDetected) Stool EAEC (PCR) (NotDetected) Stl E. histolytica PCR (NotDetected) Stool Giardia Lamblia PCR (NotDetected) Stool Salmonella PCR (NotDetected) Stool Sapovirus (PCR) (NotDetected) Stl P. shigelloides PCR (NotDetected) Stl Shigella/EIEC PCR (NotDetected) St Y.enterocolitica PCR (NotDetected) Stool Vibrio (PCR) (NotDetected) Stl Vibrio cholerae PCR (NotDetected) Stl Norovirus GI/GII PCR (NotDetected) SARS-CoV-2, RNA, NAAT (NEGATIVE) 01/31/22 01/31/22 01/31/22 Range/Units 05:23 05:23 Unknown WBC (4.8-10.8) K/uL RBC (4.7-6.1) M/uL Hgb (14.0-18.0) g/dL Hct (42-52) % MCV (80-100) fL MCH (25-34) pg MCHC (32-36) g/dL RDW Std Deviation (36.4-46.3) fL RDW Coeff of Jaja (11.5-14.5) % Plt Count (130-400) K/uL MPV (7.4-10.4) fL Immature Gran % (Auto) % Neut % (Auto) % Lymph % (Auto) % Stephenson % (Auto) % Eos % (Auto) % Baso % (Auto) % Neut # (Auto) (1.4-6.5) K/uL Lymph # (Auto) (1.2-3.4) K/uL Stephenson # (Auto) (0.11-0.59) K/uL Eos # (Auto) (0-0.5) K/uL Baso # (Auto) (0-0.2) K/uL Immature Gran # (Auto) (0.00-0.02) K/uL Sodium (136-145) mmol/L Potassium (3.5-5.1) mmol/L Chloride (98-107) mmol/L Carbon Dioxide (21-32) mmol/L Anion Gap (3-11) BUN (6-23) mg/dl Creatinine (0.6-1.4) mg/dl Est Cr Clr Drug Dosing ml/min Est GFR ( Amer) ml/min Est GFR (Non-Af Amer) ml/min BUN/Creatinine Ratio (10-20) Glucose (70-99(Fasting)) mg/dl Lactate (0.4-2.0) mmol/L Calcium (8.5-10.1) mg/dl Magnesium (1.7-2.4) mg/dl Total Bilirubin (0.2-1.0) mg/dl AST (13-39) U/L ALT (7-52) U/L Alkaline Phosphatase (34-104) U/L Troponin I (0-0.04) ng/ml Total Protein (6.0-8.3) gm/dl Albumin (3.4-5.0) gm/dl Globulin (2.5-4.0) gm/dl Albumin/Globulin Ratio (0.9-2) Lipase (11-82) U/L Urine Color Yellow Urine Appearance Clear (Clear) Urine pH 6.0 (4.5-7.5) Ur Specific Leonidas 1.023 (1.000-1.030) Urine Protein 1+ H (Negative) Urine Glucose (UA) Negative (Negative) Urine Ketones 1+ H (Negative) Urine Blood Negative (Negative) Urine Nitrite Negative (Negative) Urine Bilirubin Negative (Negative) Urine Urobilinogen Negative (Negative) Ur Leukocyte Esterase Negative (Negative) Urine WBC (Auto) 1-5 (0-5) /hpf Urine RBC (Auto) 0-4 (0-4) /hpf U Hyaline Cast (Auto) 1-5 (0-5) /lpf U Epithel Cells (Auto) 10-20 H (0-5) /lpf Urine Bacteria (Auto) Negative (Negative) Stl C. cayetanensis PCR Not Detected (NotDetected) Stool Rotavirus A PCR Not Detected (NotDetected) Stl Adenov F 40/41 PCR Not Detected (NotDetected) Stool Astrovirus (PCR) Not Detected (NotDetected) Stool Campylobacter PCR Not Detected (NotDetected) Stl C. diff Tox A/B PCR Not Detected (NotDetected) Stool Cryptosporidium PCR Not Detected (NotDetected) Stl E.coli Shiga Tox PCR Not Detected (NotDetected) Stl Enterotoxigenic E PCR Not Detected (NotDetected) Stool EPEC (PCR) Not Detected (NotDetected) Stool EAEC (PCR) Not Detected (NotDetected) Stl E. histolytica PCR Not Detected (NotDetected) Stool Giardia Lamblia PCR Not Detected (NotDetected) Stool Salmonella PCR Not Detected (NotDetected) Stool Sapovirus (PCR) Not Detected (NotDetected) Stl P. shigelloides PCR Not Detected (NotDetected) Stl Shigella/EIEC PCR Not Detected (NotDetected) St Y.enterocolitica PCR Not Detected (NotDetected) Stool Vibrio (PCR) Not Detected (NotDetected) Stl Vibrio cholerae PCR Not Detected (NotDetected) Stl Norovirus GI/GII PCR Not Detected (NotDetected) SARS-CoV-2, RNA, NAAT POSITIVE A* (NEGATIVE) Imaging Data Radiologist's Impression: Abdomen/Pelvis CT 06/24/21 03:13 CT abd pelvis IV con only CLINICAL HISTORY: abd pain, n/v, diarrhea COMPARISON STUDY: No previous studies for comparison. CT DOSE: 400.47 mGy.cm TECHNIQUE: Standard CT of the Abdomen and Pelvis was performed with IV contrast. A dose lowering technique was utilized adhering to the principles of ALARA. Contrast Volume: Optiray 320, 94 ml. The patient did not receive oral contrast. FINDINGS: Lung base: There are patchy alveolar opacities at the lung bases bilaterally characteristic of a viral type pneumonitis and early Covid pneumonia. There is asymmetric elevation right hemidiaphragm and right basilar atelectasis also present. Abdominal cavity and bowel: There is no evidence for abdominal mass, adenopathy or ascites. Compared to the previous study, there is again interposition of the colon anterior to the liver with a high riding colon. The cecum is just below the liver. There is evidence for dilatation of the appendix measuring at least 12 mm in greatest diameter. There is enhancement of its wall with mild periappendiceal inflammatory changes present. The findings are characteristic of acute appendicitis. There is no evidence for perforation or abscess. There is no evidence for free air. The remaining bowel loops are normally placed within the abdomen and pelvis without evidence for dilatation or obstruction. Liquid and food stuff is present within the stomach. Liver: There is homogeneous attenuation of the liver parenchyma. There is no evidence for enhancing mass lesion. Spleen: There is homogeneous attenuation of the splenic parenchyma. There is no enhancing mass lesion. Pancreas: There is homogeneous attenuation of the pancreatic parenchyma. There is no evidence for mass lesion or peripancreatic fluid collection. Gall Bladder: The gallbladder is contracted due to the patient's nonfasting state. Adrenal glands: The adrenal glands are normal in size and attenuation. There is no evidence for enhancing mass lesion. Kidneys: There is homogeneous attenuation of the renal parenchyma bilaterally. There is no evidence for renal calculus or hydronephrosis. There is no evidence for enhancing mass. Bladder: The bladder is within normal limits with no evidence for focal mass, calculus or diverticulum. : There is no evidence for pelvic mass or adenopathy. There is no evidence for pelvic ascites. Vasculature: There is no evidence for aneurysmal dilatation of the abdominal aorta. Mild atherosclerotic calcification is present. Osseous structures: There is no acute osseous pathology. The patient is status post internal fixation of the lumbar spine with degenerative changes also present. IMPRESSION: 1. High riding cecum as described above with evidence for acute appendicitis. The dilated appendix is in the subhepatic space with periappendiceal inflammatory changes present. There is no evidence for perforation or abscess. 2. Patchy alveolar opacities at the lung bases characteristic of a viral type pneumonitis and early Covid pneumonia. 3. Additional nonacute findings are delineated above. These results were discussed with the surgical PA. ACT 112: Negative or not required by law. Electronically signed by: Alonzo Chandler M.D. 06/24/2021 7:[address] abdomen and pelvis with contrast: Mild patchy infiltrates bilaterally in the lung bases which may represent pneumonia. The appendix is distended at 10 mm and there is inflammatory change in the surrounding fat. The appendix is abnormally high within the right upper quadrant. No other acute findings. Radiologist: Koby Piper MD ECG Data Attestation: I personally reviewed and interpreted this ECG as follows: Indication: + abdominal pain Rate (beats per minute): 103 Rhythm: + sinus tachycardia ECG Intervals/blocks: + IVCD and + Normal QT ECG [place]: + Left axis deviation ECG ST segments: + Nonspecific ST abnormalities Comparison ECG Date: from (11/09/2020) Change: no significant change MDM Narrative This is a 60-year-old male presents emergency department complaining of abdom inal pain, nausea and vomiting. Labs drawn and sent, CT ordered on the patient given unclear etiology and worsening symptoms over the last 3 days. Patient was afebrile and hemodynamically stable here. Patient's labs reassuring. CT showed evidence of acute appendicitis. Patient updated on all results. Discussed with physician construction management assistant working with general surgery on-call. He will relay to his attending, and they will come see and evaluate the patient. Covid swab added due to pending admission, was found to be positive. This is consistent with mild abnormalities noted in the lower lobes of the lungs on CT as discussed with radiology. Patient had no complaints of respiratory distress, cough, was not hypoxic. An order was placed for continuous cardiac monitoring. The monitor shows a rate of _80_ with _normal sinus_ rhythm. Impression & Plan Abdominal pain, Acute appendicitis, COVID-19 Discharge Plan Visit Data Chief Complaint: Abdominal Pain Stated Complaint: ABDOMINAL PAIN ED Provider: Aditi Vernon Discharge Problem: Abdominal pain, Acute appendicitis, COVID-19 Forms Stand Alone Forms: [facility] Prescriptions Prescriptions: No Action amoxicillin 500 mg tablet 2,000 mg PO ONCE Qty: 4 RF: 2 amlodipine 5 mg Tablet 5 mg PO QAM RF: 0 doxazosin 8 mg Tablet 8 mg PO QAM RF: 0 gabapentin 100 mg Capsule 100 mg PO QAM RF: 0 prednisone 5 mg Tablet 5 mg PO QAM RF: 0 omeprazole 20 mg Capsule,Delayed Release(Dr/Ec) 20 mg PO BID RF: 0 labetalol 100 mg tablet 50 mg PO BID RF: 0 buspirone 15 mg tablet 15 mg PO BID RF: 0 cyanocobalamin (vitamin B-12) 1,000 mcg Capsule 1,000 mcg PO QAM RF: 0 Entresto 97-103 mg Tablet 1 tab PO BID RF: 0 multivitamin Tablet 1 tab PO QAM RF: 0 gabapentin 300 mg Capsule 300 mg PO TID RF: 0 memantine 10 mg tablet 10 mg PO BID RF: 0 duloxetine 30 mg capsule,delayed release(DR/EC) 30 mg PO HS RF: 0 morphine [MS Contin] 30 mg tablet extended release 30 mg PO TID RF: 0 morphine 15 mg tablet 15 mg PO DIRECTED PRN (Reason: pain) RF: 0 spironolactone 25 mg Tablet 25 mg PO BID RF: 0 ferrous sulfate 325 mg (65 mg iron) Tablet 325 mg PO QAM RF: 0 ashwagandha root extract 300 mg Capsule 300 mg PO HS RF: 0 cholecalciferol (vitamin D3) [Vitamin D3] 125 mcg (5,000 unit) Tablet 125 mcg PO 2XWK RF: 0 prednisone 1 mg tablet 3 mg PO DAILY RF: 0 Referrals Referrals: Giuseppe Romero MD [Primary Care Provider] -
[2021-06-24] MEDS: SODIUM CHLORIDE 0.9% 1000ML 1,000 ML IV SCH ×3 (03:31→21:29)
[2021-06-24] MEDS: fentaNYL citrate 100 MCG/2 ML VIAL IV PRN ×7 (04:02→19:40)
[2021-06-24 05:02] LABS: Basophils # (auto) 0.01 K/uL (0-0.2); Basophils % (auto) 0.1 %; Eosinophils # (auto) 0.02 K/uL (0-0.5); Eosinophils % (auto) 0.3 %; Hemoglobin 11.9 g/dL (14.0-18.0); Immature Granulocytes # (auto) 0.03 K/uL (0.00-0.02); Immature Granulocytes % (auto) 0.4 %; Lymphocytes # (auto) 0.81 K/uL (1.2-3.4); Lymphocytes % (auto) 10.7 %; Mean Corpuscular Hemoglobin 31.8 pg (25-34); Mean Corpuscular Volume 93.6 fL (80-100); Mean Platelet Volume 9.1 fL (7.4-10.4); Monocytes # (auto) 0.67 K/uL (0.11-0.59); Monocytes % (auto) 8.8 %; Neutrophils # (auto) 6.05 K/uL (1.4-6.5); Neutrophils % (auto) 79.7 %; Platelet Count 228 K/uL (130-400); RDW Coefficient of Variation 13.2 % (11.5-14.5); RDW Standard Deviation 45.5 fL (36.4-46.3); Red Blood Count 3.74 M/uL (4.7-6.1); White Blood Count 7.59 K/uL (4.8-10.8)
[2021-06-24 05:22] LABS: Troponin I < 0.03 ng/ml (0-0.04)
[2021-06-24 05:27] LABS: Alanine Aminotransferase 11 U/L (7-52); Albumin Globulin Ratio 1.3 (0.9-2); Albumin Level 3.1 gm/dl (3.4-5.0); Alkaline Phosphatase 55 U/L (34-104); Anion Gap 7 (3-11); Aspartate Aminotransferase 18 U/L (13-39); BUN Creatinine Ratio 13.8 (10-20); Bilirubin,Total 0.3 mg/dl (0.2-1.0); Blood Urea Nitrogen 12 mg/dl (6-23); Calcium 7.7 mg/dl (8.5-10.1); Carbon Dioxide 25 mmol/L (21-32); Chloride 96 mmol/L (98-107); Creatinine Clr Calc Pharmacy 87.3 ml/min; Est GFR (African American) 107.2 ml/min; Est GFR (Non-African American) 92.5 ml/min; Globulin 2.4 gm/dl (2.5-4.0); Glucose 92 mg/dl (70-99(Fasting)); Lipase 73 U/L (11-82); Magnesium 1.9 mg/dl (1.7-2.4); Potassium 3.8 mmol/L (3.5-5.1); Sodium 128 mmol/L (136-145); Total Protein 5.5 gm/dl (6.0-8.3)
[2021-06-24] MEDS ORDERED: OPTIRAY 320 100ml IV ONE (05:44)
[2021-06-24 06:11] LABS: Appearance Urine Clear (Clear); Bacteria Urine Automated Negative (Negative); Bilirubin Urine Negative (Negative); Blood Urine Negative (Negative); Color Urine Yellow; Glucose Urine UA Negative (Negative); Ketones Urine 1+ (Negative); Leukocyte Esterase Urine Negative (Negative); Nitrite Urine Negative (Negative); Protein Urine 1+ (Negative); RBC Urine Automated 0-4 /hpf (0-4); Specific Gravity Urine 1.023 (1.000-1.030); Urobilinogen Urine Negative (Negative)
[2021-06-24 07:06] LABS: Adenovirus F 40/41 PCR Not Detected (NotDetected); Astrovirus PCR Not Detected (NotDetected); Campylobacter PCR Not Detected (NotDetected); Clostridium diff Toxin A/B PCR Not Detected (NotDetected); Cryptosporidium PCR Not Detected (NotDetected); Cyclospora cayetanensis PCR Not Detected (NotDetected); Entamoeba histolytica PCR Not Detected (NotDetected); Enteroaggregative E.coli(EAEC) Not Detected (NotDetected); Enteropathogenic E.coli (EPEC) Not Detected (NotDetected); Enterotoxigenic E.coli (ETEC) Not Detected (NotDetected); Giardia lamblia PCR Not Detected (NotDetected); Norovirus GI/GII PCR Not Detected (NotDetected); Plesiomonas shigelloides PCR Not Detected (NotDetected); Rotavirus A PCR Not Detected (NotDetected); Salmonella PCR Not Detected (NotDetected); Sapovirus PCR Not Detected (NotDetected); Shiga-like Toxin E.coli (STEC) Not Detected (NotDetected); Shigella/Enteroinvasive E.coli Not Detected (NotDetected); Vibrio cholerae PCR Not Detected (NotDetected); Vibrio species PCR Not Detected (NotDetected); Yersinia enterocolitica PCR Not Detected (NotDetected)
--- NOTE | 2021-06-24 07:59 | CT Scan Report ---
CT abd pelvis IV con only CLINICAL HISTORY: abd pain, n/v, diarrhea COMPARISON STUDY: No previous studies for comparison. CT DOSE: 400.47 mGy.cm TECHNIQUE: Standard CT of the Abdomen and Pelvis was performed with IV contrast. A dose lowering didi hnique was utilized adhering to the principles of ALARA. Contrast Volume: Optiray 320, 94 ml. The patient did not receive oral contrast. FINDINGS: Lung base: There are patchy alveolar opacities at the lung bases bilaterally characteristic of a genevieve l type pneumonitis and early Covid pneumonia. There is asymmetric elevation right hemidiaphragm and r ight basilar atelectasis also present. Abdominal cavity and bowel: There is no evidence for abdominal mass, adenopathy or ascites. Compared to the previous study, there is again interposition of the colon anterior to the liver with a high riding colon. The cecum is just below the liver. There is evidence for dilatation of the appen jerrod measuring at least 12 mm in greatest diameter. There is enhancement of its wall with mild periapp endiceal inflammatory changes present. The findings are characteristic of acute appendicitis. There i s no evidence for perforation or abscess. There is no evidence for free air. The remaining bowel loops are normally placed within the abdomen and pelvis without evidence for dila tation or obstruction. Liquid and food stuff is present within the stomach. Liver: There is homogeneous attenuation of the liver parenchyma. There is no evidence for enhancing m ass lesion. Spleen: There is homogeneous attenuation of the splenic parenchyma. There is no enhancing mass lesion . Pancreas: There is homogeneous attenuation of the pancreatic parenchyma. There is no evidence for mas s lesion or peripancreatic fluid collection. Gall Bladder: The gallbladder is contracted due to the patient's nonfasting state. Adrenal glands: The adrenal glands are normal in size and attenuation. There is no evidence for enhan cing mass lesion. Kidneys: There is homogeneous attenuation of the renal parenchyma bilaterally. There is no evidence f or renal calculus or hydronephrosis. There is no evidence for enhancing mass. Bladder: The bladder is within normal limits with no evidence for focal mass, calculus or diverticulu m. : There is no evidence for pelvic mass or adenopathy. There is no evidence for pelvic ascites. Vasculature: There is no evidence for aneurysmal dilatation of the abdominal aorta. Mild atherosclero tic calcification is present. Osseous structures: There is no acute osseous pathology. The patient is status post internal fixation of the lumbar spine with degenerative changes also present. IMPRESSION: 1. High riding cecum as described above with evidence for acute appendicitis. The dilated appendix is in the subhepatic space with periappendiceal inflammatory changes present. There is no evidence for perforation or abscess. 2. Patchy alveolar opacities at the lung bases characteristic of a viral type pneumonitis and early C ovid pneumonia. 3. Additional nonacute findings are delineated above. These results were discussed with the surgical PA. ACT 112: Negative or not required by law. Electronically signed by: Alonzo Chandler M.D. 06/24/2021 7:58 AM
[2021-06-24] MEDS ORDERED: AMPICILLIN/SULBACTAM SOD 3,000 MG in 0.9 % SODIUM CHLORIDE 100 ML IV STA (08:38)
[2021-06-24] MEDS ORDERED: PROMETHAZINE HCL 12.5 MG in SODIUM CHLORIDE 0.9% 50 ML IV PRN ×2 (08:44→17:32)
--- NOTE | 2021-06-24 08:57 | History & Physical Report ---
Date of Service June 24, 2021 Assessment & Plan (1) Acute appendicitis: Plan: Appendix in RUQ measuring 1 cm with inflammatory changes. Not symptomatic from COVID, in his case would probably be better to proceed with appendectomy rather than try antibiotics. Will ask hospitalist for assistance given COVID and his cardiac history. (2) COVID-19: History of Present Illness Primary Care Provider: Giuseppe Romero MD 60 y/o male c/o abdominal pain increasing over the past 3 days with N/V beginning today. Malaise began about a week ago. Had some sinus drainage. No cough, fever, or SOB. No previous abdominal surgery. No known COVID contacts. Allergies Allergy/AdvReac Type Severity Reaction Status Date / Time No Known Drug Allergies Allergy Verified 06/24/21 07:05 Home Medications Medication Instructions Recorded Confirmed Type amlodipine 5 mg tablet 5 mg PO QAM 03/24/18 06/24/21 History doxazosin 8 mg tablet 8 mg PO QAM 03/24/18 06/24/21 History gabapentin 100 mg capsule 100 mg PO QAM 03/24/18 06/24/21 History omeprazole 20 mg capsule,delayed 20 mg PO BID 03/24/18 06/24/21 History release prednisone 5 mg tablet 5 mg PO QAM 03/24/18 06/24/21 History cyanocobalamin (vitamin B-12) 1,000 mcg PO QAM 07/21/19 06/24/21 History 1,000 mcg capsule sacubitril 97 mg-valsartan 103 mg 1 tab PO BID 10/20/19 06/24/21 History tablet (Entresto) labetalol 100 mg tablet 50 mg PO BID tab 11/04/19 06/24/21 History multivitamin 1 tab PO QAM 01/19/20 06/24/21 History duloxetine 30 mg capsule,delayed 30 mg PO HS 06/28/20 06/24/21 History release gabapentin 300 mg capsule 300 mg PO TID 06/28/20 06/24/21 History memantine 10 mg tablet 10 mg PO BID 06/28/20 06/24/21 History buspirone 15 mg tablet 15 mg PO BID tab 07/04/20 06/24/21 History morphine 30 mg tablet,extended 30 mg PO TID 11/09/20 06/24/21 History release (MS Contin) amoxicillin 500 mg tablet 2,000 mg PO ONCE #4 tab 03/29/21 06/24/21 Rx enedina root extract 300 mg 300 mg PO HS 05/30/21 06/24/21 History capsule cholecalciferol (vitamin D3) 125 125 mcg PO 2XWK 05/30/21 06/24/21 History mcg (5,000 unit) tablet (Vitamin D3) ferrous sulfate 325 mg (65 mg 325 mg PO QAM 05/30/21 06/24/21 History iron) tablet morphine 15 mg immediate release 15 mg PO DIRECTED PRN 05/30/21 06/24/21 History tablet spironolactone 25 mg tablet 25 mg PO BID 05/30/21 06/24/21 History prednisone 1 mg tablet 3 mg PO DAILY 06/24/21 06/24/21 History Past Med/Surg History Medical History Cardiomyopathy Nonischemic- resolved Previous EF 35-40%; now 60-65% (06/2020 echo)-F/U KIP MARK Chronic use of steroids Congestive heart failure F/U KIP MARK Elevated hemidiaphragm Right GERD (gastroesophageal reflux disease) Well controlled and stable Hypertension Stable Kidney stones No recent issues LBBB (left bundle branch block) CHRONIC. Restrictive airway disease Pt denies- was inhalers in the past - not affective- no longer takes Rheumatoid arthritis Steroid dependent- follows with rheum - Dr. Abel LOPEZ (shortness of breath) on exertion Spinal stenosis of lumbar region at multiple levels Surgical History H/O cervical spine surgery History of colonoscopy History of lithotripsy History of lumbar fusion X 2 WITH HARDWARE L2-L4 decompression-fusion 08/06/2020: Grade 1 view, Casey#2, ETT#8.0 atraumatic x 1. No issues per anesthesia postop progress note. History of total knee replacement 11/11/2019: SAB + PNB. No issues per anesthesia postop progress note. Family History Mother Family hx of colon cancer Father , age 65 Myocardial infarction Social History Smoking Status: Never smoker Second Hand Exposure: No; Hx Alcohol Use: No Hx Substance Use: No Preferred Language: [place] Communication Ability: Effective Visual Impairment: No Limitations Outsole Paraffiner Required: No Beliefs That Will Affect Care: None marital status: Single Current Living Situation: Significant Other Current Living Situation Comment: LIVES WITH [facility] current occupational status: retired and disabled current occupation: [employer] How many Children do You have: 2 Feels Safe at Home: Yes Assistive Devices: Cane and Glasses Review of Systems Constitutional: + malaise; no fever, no chills and no anorexia Respiratory: no cough, no dyspnea and no dyspnea on exertion Cardiovascular: no chest pain, no chest pain at rest and no chest pain with activity Gastrointestinal: + abdominal pain, + nausea and + vomiting; no bloating Physical Exam Constitutional: WD/WN, vitals as above Respiratory: normal respiratory effort, lungs clear to auscultation Cardiovascular: RRR, no murmur, no edema Gastrointestinal (Abdomen): Inspection/Auscultation: abdomen normal to inspection; abdomen not distended Percussion/Palpation: + abdomen tender (RUQ) and abdomen soft Results & Data Results & Data ([facility]) Vital Signs (Past 12 Hours) Vital Signs Temp Pulse Pulse Resp BP BP Pulse Ox 06/24/21 07:00 81 17 138/89 95 06/24/21 06:30 88 16 128/81 94 06/24/21 05:00 92 H 16 123/88 95 06/24/21 03:55 36.6 C 104 H 20 157/106 H 95 06/24/21 02:57 36.2 C L 113 H 18 146/91 H 94 PG Care Time/CCT Total # of Minutes Spent Total Time Spent with Patient: Total time spent is greater than 50% in coordination of care (as documented) at patient's floor/unit and/or counseling patient: Coding Level of Care Code None Diagnoses Acute appendicitis K35.80 Acute appendicitis type: unspecified acute appendicitis type COVID-19 U07.1 (1) Acute appendicitis Acute appendicitis type: unspecified acute appendicitis type Qualified Code(s): K35.80 - Unspecified acute appendicitis
--- NOTE | 2021-06-24 09:26 | Electrocardiogram Report ---
Test Reason : Blood Pressure : / mmHG Vent. Rate : 103 BPM Atrial Rate : 103 BPM P-R Int : 186 ms QRS Dur : 140 ms QT Int : 376 ms P-R-T Axes : 048 -37 060 degrees QTc Int : 492 ms Sinus tachycardia Left axis deviation Non-specific intra-ventricular conduction block Abnormal ECG When compared with ECG of 09-NOV-2020 11:46, No significant change Confirmed by Simba Caballero ([id number]) on 06/24/2021 9:26:08 AM Referred By: REFERRED SELF Confirmed By:Simba Caballero
[2021-06-24] MEDS: MoRPHine SULFATE 4 MG/ML 1 ML CARP\\VIAL IV PRN ×5 (09:59→15:51)
--- NOTE | 2021-06-24 13:17 | History & Physical Bridge Note ---
Date of Service June 24, 2021 History & Physical Bridge Note I have examined the patient, reviewed the History & Physical and in the interval since the performance of the History & Physical I have noted the following changes of clinical significance: pt seen. discussed findings/options. +RLQ ttp with rebound. recommend lap appy today. discussed options and risks of surgery (bleeding/infection/injury to another organ/dvt/pe/mi/cva etc...). questions answered. will proceed today with lap appy. pt agreeable.
[2021-06-24] MEDS ORDERED: ROCURONIUM BROMIDE 10 MG/ML 5 ML VIAL IV ONE (17:01)
[2021-06-24] MEDS ORDERED: fentaNYL citrate 100 MCG/2 ML VIAL ONE (17:01)
[2021-06-24] MEDS ORDERED: ONDANSETRON INJ 2 MG/ML 2 ML VIAL ONE (17:01)
[2021-06-24] MEDS ORDERED: NEOSTIGMINE METHYLSULFATE 1 MG/ML 10ML VIAL ONE (17:01)
[2021-06-24] MEDS ORDERED: GLYCOPYRROLATE 0.2 MG/ML VIAL ONE (17:01)
[2021-06-24] MEDS ORDERED: MIDAZOLAM HCL 1 MG/ML 2ML VIAL ONE (17:01)
[2021-06-24] MEDS ORDERED: PROPOFOL IV EMULSION 10 MG/ML 20 ML VIAL IV ONE (17:01)
[2021-06-24] MEDS ORDERED: ePHEDrine sulfate 50 MG/ML AMP ONE (17:01)
[2021-06-24] MEDS ORDERED: DEXAMETHASONE SOD INJ 4 MG/ML VIAL ONE (17:01)
[2021-06-24] MEDS ORDERED: LARYING-O-JET KIT (LTA) ONE (17:01)
[2021-06-24] MEDS ORDERED: LIDOCAINE 2% 2 ML VIAL/AMP(20MG/ML) INFIL ONE (17:01)
[2021-06-24] MEDS ORDERED: EPINEPHrine INJ 1 MG/ML AMP ONE (17:28)
[2021-06-24] MEDS ORDERED: BUPIVACAINE 0.5 % 5 MG/1 ML MPF 30ML VIAL ONE (17:28)
--- NOTE | 2021-06-24 17:31 | Anesthesiology Consultation ---
Date of Service June 24, 2021 Assessment & Plan Chart Review Chart Review: Acceptable Risk for Surgery Consults Requested none History Surgery Operation Date: 06/24/21 15:15 Proposed Procedures p Laparoscopic Appendectomy - Juan Jones DO Height/Weight Height: 5 ft 4 in Weight: 86.4 kg Allergies Allergy/AdvReac Type Severity Reaction Status Date / Time No Known Drug Allergies Allergy Verified 06/24/21 07:05 Medications Home Medications Medication Instructions Recorded Confirmed Last Taken amlodipine 5 mg tablet 5 mg PO QAM 03/24/18 06/24/21 06/24/21 doxazosin 8 mg tablet 8 mg PO QAM 03/24/18 06/24/21 06/24/21 gabapentin 100 mg capsule 100 mg PO QAM 03/24/18 06/24/21 06/24/21 omeprazole 20 mg capsule,delayed 20 mg PO BID 03/24/18 06/24/21 06/24/21 release prednisone 5 mg tablet 5 mg PO QAM 03/24/18 06/24/21 06/24/21 cyanocobalamin (vitamin B-12) 1,000 mcg PO QAM 07/21/19 06/24/21 06/24/21 1,000 mcg capsule sacubitril 97 mg-valsartan 103 mg 1 tab PO BID 10/20/19 06/24/21 06/24/21 tablet (Entresto) labetalol 100 mg tablet 50 mg PO BID tab 11/04/19 06/24/21 06/24/21 multivitamin 1 tab PO QAM 01/19/20 06/24/21 06/24/21 duloxetine 30 mg capsule,delayed 30 mg PO HS 06/28/20 06/24/21 06/23/21 release gabapentin 300 mg capsule 300 mg PO TID 06/28/20 06/24/21 06/24/21 memantine 10 mg tablet 10 mg PO BID 06/28/20 06/24/21 06/24/21 buspirone 15 mg tablet 15 mg PO BID tab 07/04/20 06/24/21 06/24/21 morphine 30 mg tablet,extended 30 mg PO TID 11/09/20 06/24/21 06/24/21 release (MS Contin) amoxicillin 500 mg tablet 2,000 mg PO ONCE #4 tab 03/29/21 06/24/21 Unknown ashwagandha root extract 300 mg 300 mg PO HS 05/30/21 06/24/21 06/23/21 capsule cholecalciferol (vitamin D3) 125 125 mcg PO 2XWK 05/30/21 06/24/21 06/24/21 mcg (5,000 unit) tablet (Vitamin D3) ferrous sulfate 325 mg (65 mg 325 mg PO QAM 05/30/21 06/24/21 06/24/21 iron) tablet morphine 15 mg immediate release 15 mg PO DIRECTED PRN 05/30/21 06/24/21 06/23/21 tablet spironolactone 25 mg tablet 25 mg PO BID 05/30/21 06/24/21 06/24/21 prednisone 1 mg tablet 3 mg PO DAILY 06/24/21 06/24/21 06/24/21 Active Medications Generic Name Dose Route Start Last Admin Trade Name Freq PRN Reason Stop Dose Admin Fentanyl Citrate 50 mcg 06/24/21 03:52 06/24/21 07:50 Fentanyl Citrate 100 Mcg/2 Ml Vial IV 07/08/21 03:51 50 mcg Q15M PRN Administration Pain Sodium Chloride 1,000 mls @ 125 mls/hr 06/24/21 03:15 06/24/21 11:35 Nss 1000ml IV 07/24/21 03:14 125 mls/hr .Q8H WILLIAM Administration Promethazine HCl 12.5 mg/ 50.5 mls @ 202 mls/hr 06/24/21 08:44 06/24/21 14:04 Sodium Chloride IV 07/24/21 08:43 Infused Q6H PRN Infusion Nausea And Vomiting Morphine Sulfate 4 mg 06/24/21 08:44 06/24/21 15:51 Morphine Sulfate 4 Mg/Ml 1 Ml Carp\Vial IV 07/08/21 08:43 4 mg Q1H PRN Administration Pain NPO Date Last Intake of Fluids: 06/23/21 Time Last Intake of Fluids: 23:59 Past Medical History Medical History Cardiomyopathy Nonischemic- resolved Previous EF 35-40%; now 60-65% (06/2020 echo)-F/U KIP MARK Chronic use of steroids Congestive heart failure F/U KIP MARK Elevated hemidiaphragm Right GERD (gastroesophageal reflux disease) Well controlled and stable Hypertension Stable Kidney stones No recent issues LBBB (left bundle branch block) CHRONIC. Restrictive airway disease Pt denies- was inhalers in the past - not affective- no longer takes Rheumatoid arthritis Steroid dependent- follows with rheum - Dr. Abel LOPEZ (shortness of breath) on exertion Spinal stenosis of lumbar region at multiple levels Past Family History Family History Mother Family hx of colon cancer Father , age 65 Myocardial infarction Past Surgical History Surgical History H/O cervical spine surgery History of colonoscopy History of lithotripsy History of lumbar fusion X 2 WITH HARDWARE L2-L4 decompression-fusion 08/06/2020: Grade 1 view, Casey#2, ETT#8.0 atraumatic x 1. No issues per anesthesia postop progress note. History of total knee replacement 11/11/2019: SAB + PNB. No issues per anesthesia postop progress note. Social History Smoking Status: Never smoker Hx Alcohol Use: No Alcohol type: hard liquor Hx Substance Use: No substance use type: does not use Physical Exam Vital Signs Last Vital Signs Temp 36.6 C 06/24/21 03:55 Pulse 87 06/24/21 17:00 Resp 17 06/24/21 17:00 BP 114/71 06/24/21 16:00 Pulse Ox 92 06/24/21 17:00 Testing Laboratory Results 06/24/21 04:50 06/24/21 04:50 Urine Color Yellow 06/24/21 05:23 Urine Appearance Clear (Clear) 06/24/21 05:23 Urine pH 6.0 (4.5-7.5) 06/24/21 05:23 Ur Specific [place] 1.023 (1.000-1.030) 06/24/21 05:23 Urine Protein 1+ (Negative) H 06/24/21 05:23 Urine Glucose (UA) Negative (Negative) 06/24/21 05:23 Urine Ketones 1+ (Negative) H 06/24/21 05:23 Urine Nitrite Negative (Negative) 06/24/21 05:23 Ur Leukocyte Esterase Negative (Negative) 06/24/21 05:23 Urine WBC (Auto) 1-5 /hpf (0-5) 06/24/21 05:23 Urine RBC (Auto) 0-4 /hpf (0-4) 06/24/21 05:23 U Hyaline Cast (Auto) 1-5 /lpf (0-5) 06/24/21 05:23 U Epithel Cells (Auto) 10-20 /lpf (0-5) H 06/24/21 05:23 Urine Bacteria (Auto) Negative (Negative) 06/24/21 05:23
[2021-06-24] MEDS ORDERED: ONDANSETRON INJ 2 MG/ML 2 ML VIAL IV PRN (17:32)
[2021-06-24] MEDS ORDERED: ePHEDrine sulfate 50 MG/ML AMP IV PRN (17:32)
[2021-06-24] MEDS ORDERED: HYDROmorphone INJ 2 MG/ML SYR/VIAL IV PRN (17:32)
[2021-06-24] MEDS ORDERED: ATROPINE SULFATE 0.1 MG/ML 10ML SYR IV PRN (17:32)
[2021-06-24] MEDS ORDERED: fentaNYL citrate 100 MCG/2 ML VIAL IV PRN (17:32)
[2021-06-24] MEDS ORDERED: AMPICILLIN/SULBACTAM SOD 3,000 MG in 0.9 % SODIUM CHLORIDE 100 ML IV SCH (18:30)
--- NOTE | 2021-06-24 18:49 | Operative Report ---
PG Post Operative Report Pre & Post Diagnosis Operation Date: 06/24/21 15:15 Pre-Op Diagnosis: Acute appendicitis Post-Op Diagnosis: Acute appendicitis; umbilical hernia;adhesions I identified the patient and participated in the time-out.: Yes Procedure Operation Date: 06/24/21 15:15 Actual Procedures p Laparoscopic Appendectomy, Enterolysis, Repair of Umbilical Hernia(Not Applicable) - Juan Jones DO Surgeon Juan Jones DO Silverware Etcher denis Morris Estimated Blood Loss 5 Findings Consistent with Post-Op Diagnosis Specimens appendix Description of Procedure After informed consent was obtained the patient was taken to the operating room and placed in supine position. After successful intubation the abdomen was shaved and sterilely prepped and draped in usual fashion. Prior to making my incision I noted an umbilical hernia. I was able to manually reduce it. I made a periumbilical incision with 11 blade scalpel and carried this down through the soft tissue using cautery. This exposed the fascial defect of the hernia which I slightly extended. I then used 0 Vicryl stay sutures on either side. Blunt finger penetration was used to enter the peritoneum and a finger sweep was performed. A 12 mm Eastman trocar was placed into the abdomen and the abdomen was insufflated to 18 mmHg. Laparoscope was inserted and the abdomen examined 360 degrees. A suprapubic 5 mm port and a left lower quadrant 12 mm port were placed under direct vision. There were some adhesions to the anterior abdominal wall near the umbilicus. I took these down using sharp scissor lysis with a small amount of cautery. Once the adhesions were down I then identified the cecum which was in the right upper quadrant. I was able to find the appendix which was acutely inflamed. I was able to peel it away from the cecum itself however the mesentery was very foreshortened. I was able to use a [place] dissector to create a window in the mesoappendix. A OZIEL anaya cartridge 60 mm stapler was then used to transect the appendix at its base with the cecum. 2 firings of additional brown cartridge staplers were used to transect the mesentery of the appendix. It was placed into an Endo Catch bag and removed from the camera port site. Thorough irrigation of the right side of the abdomen was performed. There was adequate hemostasis. The pelvis was irrigated and suctioned out as well. I ran the small bowel back for several feet from the cecum. No other gross abnormalities were identified. The trochars were all r emoved and the abdomen was desufflated. I closed the umbilical hernia using 0 Vicryl in [id number] fashion. The fascia of the left lower quadrant incision was also closed using 0 Vicryl. Wounds were all irrigated and skin closed using 4-0 Monocryl. Marcaine with epinephrine was injected around them for postoperative analgesia and skin glue used as a dressing. The patient was awakened extubated and transferred to recovery in stable condition. My physician training assistant was present for the entire case. He was instrumental in exposure during my dissection as well as running the camera wound closure and dressing placement. I attest to the content of the Intraoperative Record and any orders documented therein. Any exceptions are noted below.
[2021-06-24] MEDS ORDERED: LABETALOL HCL IV 5 MG/ML 20ML IV ONE (18:50)
[2021-06-24] MEDS ORDERED: SUGAMMADEX SODIUM 200 MG/2 ML VIAL IV ONE (18:55)
[2021-06-24] MEDS ORDERED: KETOROLAC 30 MG/ML VIAL ONE (19:55)
[2021-06-24] MEDS ORDERED: KETOROLAC 30 MG/ML VIAL IV ONE (19:59)
--- NOTE | 2021-06-24 19:59 | Anesthesiology Progress Note ---
Date of Service June 24, 2021 Anesthesia Post Procedure Vital Signs Vital Signs: Temp Pulse Pulse Resp BP BP Pulse Ox 06/24/21 19:50 36.7 C 81 22 99/59 L 95 06/24/21 19:40 36.7 C 82 17 106/65 95 06/24/21 19:30 82 15 95/62 L 96 06/24/21 19:20 82 18 93/63 L 98 06/24/21 19:10 87 18 94/63 L 93 06/24/21 19:00 37.6 C H 88 17 107/72 94 06/24/21 17:25 36.7 C 87 18 145/79 H 96 06/24/21 17:00 87 17 92 06/24/21 16:30 87 19 96 06/24/21 16:00 88 19 114/71 95 06/24/21 15:30 86 19 95 06/24/21 15:00 91 H 18 121/79 95 06/24/21 14:30 88 15 95 06/24/21 14:00 91 H 17 123/74 96 06/24/21 13:30 93 H 17 94 06/24/21 13:00 94 H 21 120/83 96 06/24/21 12:30 90 18 94 06/24/21 12:00 90 17 123/82 96 06/24/21 11:30 101 H 23 96 06/24/21 11:00 96 H 15 129/86 93 06/24/21 10:30 91 H 18 94 06/24/21 10:01 103 H 20 96 06/24/21 09:30 98 H 21 153/85 H 96 06/24/21 09:00 91 H 23 125/82 94 06/24/21 08:30 94 H 20 136/84 96 06/24/21 08:00 16 147/102 H 96 06/24/21 07:30 86 18 153/87 H 94 06/24/21 07:00 81 17 138/89 95 06/24/21 06:30 88 16 128/81 94 06/24/21 05:00 92 H 16 123/88 95 06/24/21 03:55 36.6 C 104 H 20 157/106 H 95 06/24/21 02:57 36.2 C L 113 H 18 146/91 H 94 Pain Intensity Abdomen: Pain Intensity: 9 Transfer of Care Handoff Completed per policy Notes Mental Status: alert / awake / arousable and participated in evaluation Patient Amnestic to Procedure: Yes Nausea / Vomiting: adequately controlled Pain: adequately controlled Airway Patency, RR, SpO2: stable & adequate BP & HR: stable & adequate Hydration State: stable & adequate Anesthetic Complications: no major complications apparent
[2021-06-24] MEDS: LACTATED RINGER'S 1,000 ML IV SCH (21:03)
[2021-06-24] MEDS: ACETAMINOPHEN 1,000 MG/100 ML VIAL IV PRN (21:03)
[2021-06-24] MEDS: GABAPENTIN 300 MG CAP PO SCH (22:02)
[2021-06-24] MEDS: DULoxetine HCL 30 MG CAP PO SCH (22:02)
[2021-06-24] MEDS: PANTOprazole 40 MG TAB PO SCH (22:02)
[2021-06-24] MEDS: MEMANTINE HCL 10 MG TAB PO SCH (22:02)
[2021-06-24] MEDS: busPIRone 15 MG TAB PO SCH (22:02)
[2021-06-24] MEDS: LABETALOL HCL 100 MG TAB PO SCH (22:40)
[2021-06-24] MEDS: VALSARTAN/SACUBITRIL 103/97MG TAB PO SCH (22:41)
[2021-06-25] MEDS: AMPICILLIN/SULBACTAM SOD 1,500 MG in 0.9 % SODIUM CHLORIDE 100 ML IV SCH ×4 (00:45→16:39)
[2021-06-25] MEDS: MoRPHine SULFATE 4 MG/ML 1 ML CARP\\VIAL IV PRN ×4 (03:42→19:56)
[2021-06-25] MEDS: ONDANSETRON INJ 2 MG/ML 2 ML VIAL IV PRN ×2 (03:47→17:42)
[2021-06-25] MEDS: ACETAMINOPHEN 1,000 MG/100 ML VIAL IV PRN ×2 (05:54→16:39)
[2021-06-25] MEDS: MEMANTINE HCL 10 MG TAB PO SCH ×2 (07:37→20:06)
[2021-06-25] MEDS: LABETALOL HCL 100 MG TAB PO SCH ×2 (07:37→20:05)
[2021-06-25] MEDS: VALSARTAN/SACUBITRIL 103/97MG TAB PO SCH ×2 (07:37→20:07)
[2021-06-25] MEDS: diazePAM 2 MG TABLET PO SCH ×2 (07:37→09:35)
[2021-06-25] MEDS: predniSONE 1 MG TAB PO SCH (07:38)
[2021-06-25] MEDS: DOXAZosin MESYLATE 4 MG TAB PO SCH (07:38)
[2021-06-25] MEDS: busPIRone 15 MG TAB PO SCH ×2 (07:38→20:04)
[2021-06-25] MEDS: GABAPENTIN 100 MG CAP PO SCH (07:39)
[2021-06-25] MEDS: PANTOprazole 40 MG TAB PO SCH ×2 (07:39→20:07)
--- NOTE | 2021-06-25 08:29 | Surgery Progress Note ---
Date of Service June 25, 2021 Assessment & Plan (1) Acute appendicitis: Plan: POD 1 lap appy stable postop plan for d/c later today as above. pt seen. doing as expected. ok for d/c. instructions given. (2) COVID-19: Admission and Anticipated Discharge Date Admission Date: June 24, 2021 Subjective some pain across upper abdomen, appetite fair Physical Exam Gastrointestinal (Abdomen): Inspection/Auscultation: + abdominal surgical incision (dry); abdomen not distended Percussion/Palpation: abdomen soft Results & Data ([facility]) Vital Signs (Past 12 Hours) Vital Signs Temp Pulse Resp BP Pulse Ox 06/25/21 07:20 36.4 C L 80 18 144/79 H 94 06/25/21 03:20 36.4 C L 83 18 137/82 95 06/24/21 22:39 36.7 C 81 16 109/69 97 06/24/21 22:05 36.6 C 86 17 115/72 96 06/24/21 21:31 36.6 C 82 16 105/69 97 06/24/21 20:50 37.9 C H 88 17 117/79 95 06/24/21 20:30 37.1 C 83 16 107/71 92 PG Care Time/CCT Total # of Minutes Spent Total Time Spent with Patient: Total time spent is greater than 50% in coordination of care (as documented) at patient's floor/unit and/or counseling patient: Coding Level of Care Code None Diagnoses Acute appendicitis K35.80 Acute appendicitis type: unspecified acute appendicitis type COVID-19 U07.1 (1) Acute appendicitis Acute appendicitis type: unspecified acute appendicitis type Qualified Code(s): K35.80 - Unspecified acute appendicitis
[2021-06-25] MEDS ORDERED: amLODIPine BESYLATE 5 MG TAB PO SCH (09:00)
[2021-06-25 09:22] LABS: Hematocrit (blood only) 35.7 % (42-52); Hemoglobin 11.8 g/dL (14.0-18.0); Mean Corpuscular Hemoglobin 31.1 pg (25-34); Mean Corpuscular Hgb Conc 33.1 g/dL (32-36); Mean Corpuscular Volume 93.9 fL (80-100); Mean Platelet Volume 9.2 fL (7.4-10.4); Platelet Count 254 K/uL (130-400); RDW Coefficient of Variation 13.4 % (11.5-14.5); RDW Standard Deviation 46.3 fL (36.4-46.3); White Blood Count 8.64 K/uL (4.8-10.8)
[2021-06-25] MEDS ORDERED: KETOROLAC 30 MG/ML VIAL IV ONE (09:35)
[2021-06-25] MEDS: predniSONE 5 MG TAB PO SCH (09:50)
[2021-06-25 10:06] LABS: BUN Creatinine Ratio 14.3 (10-20); Calcium 7.7 mg/dl (8.5-10.1); Creatinine Clr Calc Pharmacy 67.8 ml/min; Est GFR (African American) 81.2 ml/min; Potassium 4.5 mmol/L (3.5-5.1)
[2021-06-25] MEDS ORDERED: diazePAM 2 MG TABLET PO ONE ×2 (11:09→20:30)
--- NOTE | 2021-06-25 12:09 | Hospitalist Consultation ---
Date of Consultation June 25, 2021 Assessment & Plan (1) Acute appendicitis: - S/P appendectomy - Surgical management per primary service (2) COVID-19: - Found COVID positive on admission - reports a mild intermittent productive cough that started about 3 days ago and some mild chest tightness at that time; denies SOB - Remains on RA - CT of the abd captured some of the lung that shows signs of viral pneumonitis and early COVID pneumonia; asymmetic elevation of R hemidiaphragm and R basilar atelectasis - CXR - unremarkable - As he currently is not requiring supplemental O2, no indication for Remdesivir or Decadron at this time - Patient was instructed on signs and symptoms to monitor for and if worsening SOB to get evaluated as this could still be early phase of COVID and may warrant treatment at that time (3) Chronic systolic heart failure: - STABLE - No signs of decompensation at this time - Recommend to hold Spironolactone today and tomorrow due to diarrhea and reduced oral intake but to then resume and be mindful of fluid intake (4) Rheumatoid arthritis: - On chronic steroids - BP is acceptable and no indication for stress dosing - Continue Prednisone (5) Cardiomyopathy, idiopathic: - RESOLVED on last Echo (6) Restrictive airway disease: - Denies this but is in the chart; does not maintain on inhalers - Suspect restrictive in setting of elevated R diaphram (7) Elevated troponin: - Patient reporting chest tightness that has 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; still occurring with no response to nitro - Troponin did bump to 0.12 with repeat down to 0.10 and will continue to trend - Suspect most of his discomfort is GI related as he does report worsening after attempts to eat; will try some Pepcid as well - EKG with LBBB which is chronic and would make acute ischemic changes more difficult to assess - Will assess with echo - Do feel this could be more demand ischemia in setting of appendicitis/surgery/COVID - Pt [facility] with [facility] and will further discuss Recommend monitoring inhouse overnight and trending troponins. Will touch base with cardiology. If symptoms improved and no need for intervention he could likely go home tomorrow Supervising Physician Co-Signing Physician Notes Attending note: patient seen and examined with Hawa BRAN. I agree with her assessment and plan, examination, review of systems. s/p appendectomy: management per surgery COVID positive: stable on room air, monitor oxygen levels, supportive care History of Present Illness Reason for Consultation: Cardiac History; COVID Attending Physician: Juan Jones DO History of Present Illness Mr. Moses is a 60 y/o male with PMHx of Systolic CHF, RA, Chronic Back Pain, Restrictive Airway Disease, and HTN who presented to the ED and found to have appendicitis. He incidentally was found to be COVID+ as well. Patient is S/P appendenctomy and hospitalist service consulted for medical management. Patient had an uneventful post-operative course. Patient reports not feeling well for approx. one week then on Thursday developed worsening pain, nausea, diarrhea. He has had several episodes of vomiting. CT performed which showed appendicitis. He reports some mild pain at the surgical site. Tolerating a diet. Labs are stable and hemodynamically stable. He does endorse an occasional productive cough but denies SOB. He states he had some chest tightness for the past three days since the cough started. He does endorse some anxiety while here. He has remained on RA while hospitalized. Allergies Allergy/AdvReac Type Severity Reaction Status Date / Time No Known Drug Allergies Allergy Verified 06/24/21 07:05 Home Medications Medication Instructions Recorded Confirmed Type amlodipine 5 mg tablet 5 mg PO QAM 03/24/18 06/24/21 History doxazosin 8 mg tablet 8 mg PO QAM 03/24/18 06/24/21 History gabapentin 100 mg capsule 100 mg PO QAM 03/24/18 06/24/21 History omeprazole 20 mg capsule,delayed 20 mg PO BID 03/24/18 06/24/21 History release prednisone 5 mg tablet 5 mg PO QAM 03/24/18 06/24/21 History cyanocobalamin (vitamin B-12) 1,000 mcg PO QAM 07/21/19 06/24/21 History 1,000 mcg capsule sacubitril 97 mg-valsartan 103 mg 1 tab PO BID 10/20/19 06/24/21 History tablet (Entresto) labetalol 100 mg tablet 50 mg PO BID tab 11/04/19 06/24/21 History multivitamin 1 tab PO QAM 01/19/20 06/24/21 History duloxetine 30 mg capsule,delayed 30 mg PO HS 06/28/20 06/24/21 History release gabapentin 300 mg capsule 300 mg PO TID 06/28/20 06/24/21 History memantine 10 mg tablet 10 mg PO BID 06/28/20 06/24/21 History buspirone 15 mg tablet 15 mg PO BID tab 07/04/20 06/24/21 History morphine 30 mg tablet,extended 30 mg PO TID 11/09/20 06/24/21 History release (MS Contin) amoxicillin 500 mg tablet 2,000 mg PO ONCE #4 tab 03/29/21 06/24/21 Rx niaa root extract 300 mg 300 mg PO HS 05/30/21 06/24/21 History capsule cholecalciferol (vitamin D3) 125 125 mcg PO 2XWK 05/30/21 06/24/21 History mcg (5,000 unit) tablet (Vitamin D3) ferrous sulfate 325 mg (65 mg 325 mg PO QAM 05/30/21 06/24/21 History iron) tablet morphine 15 mg immediate release 15 mg PO DIRECTED PRN 05/30/21 06/24/21 Hist ory tablet spironolactone 25 mg tablet 25 mg PO BID 05/30/21 06/24/21 History prednisone 1 mg tablet 3 mg PO DAILY 06/24/21 06/24/21 History amoxicillin 875 mg-potassium 1 tab PO BID #10 tab 06/26/21 Rx clavulanate 125 mg tablet (Augmentin) morphine 15 mg immediate release 15 mg PO Q4H PRN #18 tab MDD 6 tabs 06/26/21 Rx tablet Patient History Medical History Cardiomyopathy Nonischemic- resolved Previous EF 35-40%; now 60-65% (06/2020 echo)-F/U KIP MARK Chronic use of steroids Congestive heart failure F/U KIP MARK Elevated hemidiaphragm Right GERD (gastroesophageal reflux disease) Well controlled and stable Hypertension Stable Kidney stones No recent issues LBBB (left bundle branch block) CHRONIC. Restrictive airway disease Pt denies- was inhalers in the past - not affective- no longer takes Rheumatoid arthritis Steroid dependent- follows with rheum - Dr. Abel LOPEZ (shortness of breath) on exertion Spinal stenosis of lumbar region at multiple levels Surgical History H/O cervical spine surgery History of colonoscopy History of laparoscopic appendectomy (06/24/21) Laparoscopic Appendectomy, Enterolysis, Repair of Umbilical Hernia - Juan Jones, 06/24/2021 History of lithotripsy History of lumbar fusion X 2 WITH HARDWARE L2-L4 decompression-fusion 08/06/2020: Grade 1 view, Casey#2, ETT#8.0 atraumatic x 1. No issues per anesthesia postop progress note. History of total knee replacement 11/11/2019: SAB + PNB. No issues per anesthesia postop progress note. 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 How many Children do You have: 2 Feels Safe at Home: Yes Assistive Devices: Glasses Review of Systems Review of Systems: All systems reviewed & are unremarkable except as noted in Subjective Physical Exam Physical Exam: PHYSICAL EXAM General Appearance: WDWN in NAD who is A&O x 3 HEENT: Head is normocephalic/atraumatic; Hearing grossly intact; Mucous membranes moist Neck: Supple; Trachea midline; Neg JVD Heart: RRR with no M/G/R Lungs: CTA in all lung chester bilaterally; Respirations unlabored; Neg accessory muscle use Abdomen: Positive BS x 4 quadrants Extremities: Neg cyanosis or edema Neurological: Speech clear; Gross motor/sensory function intact; Neg focal neurologic deficits Psychiatric: Appropriate mood/affect Skin: Normal Color; Warm/Dry Results & Data Results & Data ([facility]) Vital Signs (Past 12 Hours) Vital Signs Temp Pulse Resp BP Pulse Ox 06/25/21 07:20 36.4 C L 80 18 144/79 H 94 06/25/21 03:20 36.4 C L 83 18 137/82 95 PG Care Time/CCT Total # of Minutes Spent Total Time Spent with Patient: Total time spent is greater than 50% in coordination of care (as documented) at patient's floor/unit and/or counseling patient: Coding Level of Care Code 85730 Office/OBS Consult Lvl 3 Diagnoses Acute appendicitis K35.80 Acute appendicitis type: unspecified acute appendicitis type COVID-19 U07.1 Chronic systolic heart failure I50.22 Rheumatoid arthritis M06.9 Rheumatoid arthritis location: unspecified site Rheumatoid factor presence: unspecified presence Cardiomyopathy, idiopathic I42.8 Restrictive airway disease J98.4 Elevated troponin R77.8 (1) Rheumatoid arthritis Rheumatoid arthritis location: unspecified site Rheumatoid factor presence: unspecified presence Qualified Code(s): M06.9 - Rheumatoid arthritis, unspecified (2) Acute appendicitis Acute appendicitis type: unspecified acute appendicitis type Qualified Code(s): K35.80 - Unspecified acute appendicitis
--- NOTE | 2021-06-25 12:58 | Discharge Summary ---
Date of Service June 25, 2021 Admission HPI Per Admitting Provider 60 y/o male c/o abdominal pain increasing over the past 3 days with N/V beginning today. Malaise began about a week ago. Had some sinus drainage. No cough, fever, or SOB. No previous abdominal surgery. No known COVID contacts. Principal Diagnosis Acute appendicitis COVID-19, asymptomatic Discharge Exam Constitutional WD/WN, vitals as above Respiratory normal respiratory effort, lungs clear to auscultation Cardiovascular RRR, no murmur, no edema Gastrointestinal (Abdomen) Inspection/Auscultation: + abdominal surgical incision (dry); abdomen not distended Percussion/Palpation: abdomen soft Discharge Data Allergies Allergy/AdvReac Type Severity Reaction Status Date / Time No Known Drug Allergies Allergy Verified 06/24/21 07:05 Consultations 06/24/21 07:10 ED Decision to Admit Stat 06/24/21 08:38 Consult Hospitalist Stat Procedures Performed Operation Date: 06/24/21 15:15 Actual Procedures p Laparoscopic Appendectomy, Enterolysis, (Not Applicable) - Juan Jones DO s Umbilical Hernia Repair(Not Applicable) - Juan Jones DO Ordered Studies 06/24/21 03:13 CT Abd and Pelvis [CT abd pelvis IV con only] Urgent Hospital Course (1) Acute appendicitis: 60 y/o male presented to the ER with abdominal pain. White count was normal although CT was consistent with acute appendicitis. He also screened positive for COVID-19. He was taken to the operating room for laparoscopic appendectomy later in the day and transferred to the COVID unit for overnight observation. Hospitalist service was consulted given his COVID status as well as cardiac and respiratory history. He remained stable overnight. In the morning he was able to advance diet, tolerate oral analgesics and was stable for discharge home. Total Time Total Time Spent Total Time Spent (In Minutes): 15 Discharge Plan Discharge Items Patient Disposition: Home - Self-Care Reason For Visit: ABDOMINAL PAIN, APPY Discharge Diagnosis: appendicitis Covid + Activity: Per Instructions section Lifting: No more than 10 pounds Lifting Comment: may shower; no soaking in tubs/pools Sexual Activity: Wait until after follow-up appointment Exercise/Sports: Wait until after follow-up appointment Driving/Machine Use: no driving while taking narcotics for pain Non-emergency contact: Surgeon Call non-emergency contact if: you have any medication questions, your symptoms worsen, your pain is not controlled, your pain is worsening, your pain is co ncerning for you, you have a fever, your temperature is above 101.5, your wound has increased redness, your wound has increased drainage and your wound pain has increased Follow-up/Referrals: Juan Jones, [Surgeon] - (Please call to schedule follow up in clinic within 2 weeks) Giuseppe Romero MD [Primary Care Provider] - Diet: Regular Addtl Attending Provider Instructions: 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 It is hard to say when these symptoms directly started given you were having symptoms with the appendix and maybe it was a bit mixed. - It would be best to time isolation off of your positive test yesterday on 06/24. Current recommendations is for people to isolate for 5 days and if no longer having symptoms or they are improving (NO FEVER > 24 HOURS) then can stop isolating but recommend wearing a mask for 5 additional days when around others. - If you have friends or family who are higher risk (bad lung issues, on cancer treatment, etc), may be best to isolate from them if able for a total 10 days or when not having symptoms. - Thankfully you have not required any oxygen while here. We are seeing more people who get COVID that are not requiring oxygen which is wonderful. - However, we do tend to see if that people tend to peak symptom-mims around 10 days of illness. So it is important if you develop worsening shortness of breath to get evaluated by your doctor or go to the Emergency Room. - Currently, if not requiring oxygen we do not start steriods like Decadron or antibiotics at this time. If your symptoms worsen then you may need additional treatment. Water Pill - Spironolactone - Would recommend holding your Spironolactone for today and tomorrow to prevent dehydration given the diarrhea. However, would resume this on . Pending Studies at Discharge: Yes Studies:: surgical pathology Stand-Alone Forms: My [facility] [employer], Smoking Cessation Medications and DC Order Prescriptions: Continued amoxicillin 500 mg tablet 2,000 mg PO ONCE Qty: 4 RF: 2 amlodipine 5 mg Tablet 5 mg PO QAM RF: 0 doxazosin 8 mg Tablet 8 mg PO QAM RF: 0 gabapentin 100 mg Capsule 100 mg PO QAM RF: 0 prednisone 5 mg Tablet 5 mg PO QAM RF: 0 omeprazole 20 mg Capsule,Delayed Release(Dr/Ec) 20 mg PO BID RF: 0 labetalol 100 mg tablet 50 mg PO BID RF: 0 buspirone 15 mg tablet 15 mg PO BID RF: 0 cyanocobalamin (vitamin B-12) 1,000 mcg Capsule 1,000 mcg PO QAM RF: 0 Entresto 97-103 mg Tablet 1 tab PO BID RF: 0 multivitamin Tablet 1 tab PO QAM RF: 0 gabapentin 300 mg Capsule 300 mg PO TID RF: 0 memantine 10 mg tablet 10 mg PO BID RF: 0 duloxetine 30 mg capsule,delayed release(DR/EC) 30 mg PO HS RF: 0 morphine [MS Contin] 30 mg tablet extended release 30 mg PO TID RF: 0 morphine 15 mg tablet 15 mg PO DIRECTED PRN (Reason: pain) RF: 0 spironolactone 25 mg Tablet 25 mg PO BID RF: 0 ferrous sulfate 325 mg (65 mg iron) Tablet 325 mg PO QAM RF: 0 ashwagandha root extract 300 mg Capsule 300 mg PO HS RF: 0 cholecalciferol (vitamin D3) [Vitamin D3] 125 mcg (5,000 unit) Tablet 125 mcg PO 2XWK RF: 0 prednisone 1 mg tablet 3 mg PO DAILY RF: 0 Discharge Orders: Discharge Order (Routine); Ordered 06/25/21 Ordered By: Raul Escobar Admission Data Admit Date/Time: 06/24/21 19:05 Attending Provider: Juan Jones Admit Provider: Juan Jones Primary Care Provider: Giuseppe Romero Other Providers: Juan Jones ; Zack Burgess Coding Level of Care Code D/C DAY MANAGEMENT <30 MINS Diagnoses Acute appendicitis K35.80 Acute appendicitis type: unspecified acute appendicitis type
--- NOTE | 2021-06-25 13:08 | XRay Report ---
SINGLE VIEW CHEST CLINICAL HISTORY: Atypical chest pain. Dyspnea. FINDINGS: 2 AP, portable, upright chest radiographs are compared to chest x-ray and chest CT dated 04/2022 and correlated with chest CT dated 06/28/2020. The heart is enlarged. The pulmonary vasculature is noncongested there is chronic elevation of the right hemidiaphragm with bibasilar atelectasis. No airspace consolidation or large pleural effusion is identified. No pneumothorax is seen. The skeleta l structures appear osteopenic. The bony thorax is grossly intact. Degenerative change is noted in th e shoulders. Fusion hardware is seen in the lower cervical spine. IMPRESSION: Cardiomegaly with no acute cardiopulmonary abnormality. ACT 112: Negative or not required by law. Electronically signed by: Mir Villalba M.D. 06/25/2021 1:07 PM
[2021-06-25] MEDS: GABAPENTIN 300 MG CAP PO SCH ×3 (13:52→20:04)
[2021-06-25] MEDS ORDERED: NITROGLYCERIN SL 0.4 MG/TAB TAB SL STA (16:17)
--- NOTE | 2021-06-25 16:27 | Electrocardiogram Report ---
Test Reason : Blood Pressure : / mmHG Vent. Rate : 085 BPM Atrial Rate : 085 BPM P-R Int : 190 ms QRS Dur : 150 ms QT Int : 400 ms P-R-T Axes : 047 -29 058 degrees QTc Int : 476 ms Normal sinus rhythm Left bundle branch block Abnormal ECG When compared with ECG of 24-JUN-2021 03:49, Left bundle branch block has replaced Non-specific intra-ventricular conduction block Confirmed by Simba Caballero ([id number]) on 06/25/2021 4:27:40 PM Referred By: REFERRED SELF Confirmed By:Simba Caballero
[2021-06-25] MEDS: LACTATED RINGER'S 1,000 ML IV SCH ×2 (16:39→20:18)
[2021-06-25] MEDS: FAMOTIDINE 20 MG in SYRINGE 3 ML IV SCH (20:03)
[2021-06-25] MEDS: DULoxetine HCL 30 MG CAP PO SCH (20:04)
[2021-06-25] MEDS ORDERED: PROMETHAZINE HCL 25 MG TAB PO STA (20:23)
[2021-06-25] MEDS ORDERED: FLUARIX QUADRIVALENT 0.5 ML SYR IM ONE (23:31)
[2021-06-25] MEDS ORDERED: LORazepam 0.5 MG TAB PO STA (23:36)
[2021-06-26] MEDS: AMPICILLIN/SULBACTAM SOD 1,500 MG in 0.9 % SODIUM CHLORIDE 100 ML IV SCH ×2 (00:15→05:53)
[2021-06-26] MEDS: MoRPHine SULFATE 4 MG/ML 1 ML CARP\\VIAL IV PRN ×3 (00:20→11:20)
[2021-06-26] MEDS ORDERED: oxyCODONE/ACETAMINOPHEN 5mg/325mg TAB PO ONE (02:32)
[2021-06-26] MEDS: ACETAMINOPHEN 1,000 MG/100 ML VIAL IV PRN (07:49)
[2021-06-26] MEDS: GABAPENTIN 100 MG CAP PO SCH (08:37)
[2021-06-26] MEDS: predniSONE 1 MG TAB PO SCH (08:37)
[2021-06-26] MEDS: predniSONE 5 MG TAB PO SCH (08:38)
[2021-06-26] MEDS: LABETALOL HCL 100 MG TAB PO SCH (08:38)
[2021-06-26] MEDS: DOXAZosin MESYLATE 4 MG TAB PO SCH (08:38)
[2021-06-26] MEDS: VALSARTAN/SACUBITRIL 103/97MG TAB PO SCH (08:42)
[2021-06-26] MEDS: MEMANTINE HCL 10 MG TAB PO SCH (08:42)
[2021-06-26] MEDS: PANTOprazole 40 MG TAB PO SCH (08:42)
[2021-06-26] MEDS: busPIRone 15 MG TAB PO SCH (08:43)
--- NOTE | 2021-06-26 08:46 | Surgery Progress Note ---
Date of Service June 26, 2021 Assessment & Plan (1) Acute appendicitis: (2) COVID-19: Plan: POD 2 lap appy remains stable asymptomatic from COVID labs pending d/c when ok with medicine Admission and Anticipated Discharge Date Admission Date: June 24, 2021 Subjective overall feels about the same, not much appetite, some nausea Physical Exam Gastrointestinal (Abdomen): Inspection/Auscultation: + abdominal surgical incision (dry); abdomen not distended Percussion/Palpation: abdomen soft Results & Data ([facility]) Vital Signs (Past 12 Hours) Vital Signs Temp Pulse Pulse Resp BP Pulse Ox 06/26/21 07:09 36.8 C 84 20 126/77 93 06/26/21 03:49 36.5 C 72 18 118/71 93 06/25/21 22:26 80 06/25/21 22:07 36.5 C 80 18 120/72 94 PG Care Time/CCT Total # of Minutes Spent Total Time Spent with Patient: Total time spent is greater than 50% in coordination of care (as documented) at patient's floor/unit and/or counseling patient: Coding Level of Care Code None Diagnoses Acute appendicitis K35.80 Acute appendicitis type: unspecified acute appendicitis type COVID-19 U07.1 (1) Acute appendicitis Acute appendicitis type: unspecified acute appendicitis type Qualified Code(s): K35.80 - Unspecified acute appendicitis
[2021-06-26] MEDS: FAMOTIDINE 20 MG in SYRINGE 3 ML IV SCH (09:38)
[2021-06-26] MEDS: ONDANSETRON INJ 2 MG/ML 2 ML VIAL IV PRN (10:01)
[2021-06-26] MEDS: LACTATED RINGER'S 1,000 ML IV SCH (11:18)
--- NOTE | 2021-06-26 13:40 | Hospitalist Progress Note ---
Date of Service June 26, 2021 Assessment & Plan (1) Acute appendicitis: Plan: - S/P appendectomy - Surgical management per primary service (2) COVID-19: Plan: - Found COVID positive on admission - reports a mild intermittent productive cough that started about 3 days ago and some mild chest tightness at that time; denies SOB - Remains on RA - CT of the abd captured some of the lung that shows signs of viral pneumonitis and early COVID pneumonia; asymmetic elevation of R hemidiaphragm and R basilar atelectasis - CXR - unremarkable - As he currently is not requiring supplemental O2, no indication for Remdesivir or Decadron at this time - Patient was instructed on signs and symptoms to monitor for and if worsening SOB to get evaluated as this could still be early phase of COVID and may warrant treatment at that time (3) Chronic systolic heart failure: Plan: - STABLE - No signs of decompensation at this time - Recommend to hold Spironolactone today and tomorrow due to diarrhea and reduced oral intake but to then resume and be mindful of fluid intake (4) Rheumatoid arthritis: Plan: - On chronic steroids - BP is acceptable and no indication for stress dosing - Continue Prednisone (5) Cardiomyopathy, idiopathic: Plan: - RESOLVED on last Echo (6) Restrictive airway disease: Plan: - Denies this but is in the chart; does not maintain on inhalers - Suspect restrictive in setting of elevated R diaphram (7) Elevated troponin: Plan: - Patient reporting chest tightness that has been 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 Again suspect this is in the setting of demand ischemia. Can F/U with cardiology as outpatient as needed. Okay for discharge from a medical perspective Admission and Anticipated Discharge Date Admission Date: June 24, 2021 Subjective No acute events overnight. No longer having chest tightness but still with some abdominal pain/stomach upset mostly with eating. Has been trying to keep food bland and take small bits and spread it out. Suspect some of his chest tightness may have been more abdominal/gas related. He says overall he feels better today compared to yesterday. Remains stable from a pulmonary perspective. Review of Systems Review of Systems: All systems reviewed & are unremarkable except as noted in Subjective Physical Exam Physical Exam: PHYSICAL EXAM General Appearance: WDWN in NAD who is A&O x 3 HEENT: Head is normocephalic/atraumatic; Hearing grossly intact; Mucous membranes moist Neck: Supple; Trachea midline; Neg JVD Heart: RRR with no M/G/R Lungs: CTA in all lung chester bilaterally; Respirations unlabored; Neg accessory muscle use Abdomen: Positive BS x 4 quadrants Extremities: Neg cyanosis or edema Neurological: Speech clear; Gross motor/sensory function intact; Neg focal neurologic deficits Psychiatric: Appropriate mood/affect Skin: Normal Color; Warm/Dry Results & Data Results & Data ([facility]) Vital Signs (Past 12 Hours) Vital Signs Temp Pulse Pulse Pulse Resp BP Pulse Ox 06/26/21 12:16 36.5 C 83 77 18 137/81 93 06/26/21 10:54 36.5 C 77 18 137/81 93 06/26/21 08:00 72 06/26/21 07:09 36.8 C 84 20 126/77 93 06/26/21 03:49 36.5 C 72 18 118/71 93 PG Care Time/CCT Total # of Minutes Spent Total Time Spent with Patient: Total time spent is greater than 50% in coordination of care (as documented) at patient's floor/unit and/or counseling patient: Coding Level of Care Code 68747 Inpt Consult Level 2 Diagnoses Acute appendicitis K35.80 Acute appendicitis type: unspecified acute appendicitis type COVID-19 U07.1 Chronic systolic heart failure I50.22 Rheumatoid arthritis M06.9 Rheumatoid arthritis location: unspecified site Rheumatoid factor presence: unspecified presence Cardiomyopathy, idiopathic I42.8 Restrictive airway disease J98.4 Elevated troponin R77.8 (1) Acute appendicitis Acute appendicitis type: unspecified acute appendicitis type Qualified Code(s): K35.80 - Unspecified acute appendicitis (2) Rheumatoid arthritis Rheumatoid arthritis location: unspecified site Rheumatoid factor presence: unspecified presence Qualified Code(s): M06.9 - Rheumatoid arthritis, unsp ecified
== END 2021-06-26 13:29 | disposition home or self-care (01) ==
LOC: ED 02:53 → 2W 18:05 → OR 18:05

== ENCOUNTER 2021-10-07 07:41 | Observation (INO) ==
--- NOTE | 2021-09-30 10:13 | Communication Note ---
Date of Service: September 30, 2021 Pt contacted clinic as surgery was re-scheduled and he will not be off ashdaindha root extract 2 weeks prior to surgery, plans to stop today which will be 1 week which is acceptable. He advised takes doxazosin, gabapentin 300 mg and morphine 15 mg in evening. He confirmed other medications as on 06/03/21 medication instruction list are correct. He was advised he can continue those 3 medications as usual evening before surgery and should not take them am DOS. He confirmed calling for surgery time Thursday before surgery and plans to have pre- op COVID testing at [facility]. He verbalized understanding of above and denied additional questions or concerns.
--- NOTE | 2021-10-02 16:03 | Anesthesiology Consultation ---
Date of Service October 02, 2021 Assessment & Plan (1) Encounter for pre-operative examination: - COVID screening: Per assessment on 10/02: No known COVID-19 positive contacts or current COVID-19 related symptoms. Travel screen negative. Surgeon arranging preop COVID testing. Awaiting results. - Cardiology office visit (07/04/20): "patient with history of resolved nonischemic CM, normal coronaries on 2004 cardiac cath, hypertension, elevated hemidiaphragm and chronic left bundle branch block. Patient recently seen in the ER for left arm pain shortness of breath and upper back pain. Patient has also noticed decreased exercise tolerance in the past couple years. Some of this may be related to deconditioning, but I am concerned he may have restrictive lung disease related to his kyphosis and elevated hemidiaphragm. Will order PFTs. Repeat echocardiogram. Continue current medications as prescribed. > Echo and PFTs performed 06/2020 (echo unremarkable, PFTs with moderate restrictive dz- per pt, trial with inhalers unsuccessful). - S/P laparoscopic appendectomy (06/24/2021): Grade 1 view, glidescope 4.0, ETT 8.[address] [facility]. No major anesthesia complications per postop anesthesia note. - This surgery was originally scheduled for 07/08/21 but patient had appendectomy 06/24/21 and surgeon recommended waiting 8 weeks until proceeding with NISA (lap appe done at [facility] without issue). At that time, case was reviewed by Maria Victoria Hodgson, PAC with Dr. Mcneill and felt patient okay to proceed as scheduled. Patient rescheduled to 10/07/21. No new acute issues noted per PAT RN phone interview 10/02/21. Chart Review Chart Review: Acceptable Risk for Surgery (pending evaluation AM DOS) and Patient NOT seen in Pre Admission Testing History Surgery Operation Date: 10/07/21 10:40 Proposed Procedures p Right Anterior Total Hip Arthroplasty - Everton Cary DO Height/Weight Height: 5 ft 4 in Weight: 86.183 kg Allergies Allergy/AdvReac Type Severity Reaction Status Date / Time No Known Drug Allergies Allergy Verified 08/07/21 09:29 Medications Home Medications Medication Instructions Recorded Confirmed Last Taken amlodipine 5 mg tablet 5 mg PO QAM 03/24/18 10/02/21 06/24/21 doxazosin 8 mg tablet 8 mg PO QAM 03/24/18 10/02/21 06/24/21 gabapentin 100 mg capsule 100 mg PO QAM 03/24/18 10/02/21 06/24/21 omeprazole 20 mg capsule,delayed 20 mg PO BID 03/24/18 10/02/21 06/24/21 release prednisone 5 mg tablet 5 mg PO QAM 03/24/18 10/02/21 06/24/21 cyanocobalamin (vitamin B-12) 1,000 mcg PO QAM 07/21/19 10/02/21 06/24/21 1,000 mcg capsule sacubitril 97 mg-valsartan 103 mg 1 tab PO BID 10/20/19 10/02/21 06/24/21 tablet (Entresto) labetalol 100 mg tablet 50 mg PO BID tab 11/04/19 10/02/21 06/24/21 multivitamin 1 tab PO QAM 01/19/20 10/02/21 06/24/21 duloxetine 30 mg capsule,delayed 30 mg PO HS 06/28/20 10/02/21 06/23/21 release gabapentin 300 mg capsule 300 mg PO TID 06/28/20 10/02/21 06/24/21 memantine 10 mg tablet 10 mg PO BID 06/28/20 10/02/21 06/24/21 buspirone 15 mg tablet 15 mg PO BID tab 07/04/20 10/02/21 06/24/21 morphine 30 mg tablet,extended 30 mg PO BID 11/09/20 10/02/21 06/24/21 release (MS Contin) amoxicillin 500 mg tablet 2,000 mg PO ONCE #4 tab 03/29/21 10/02/21 Unknown ashwagandha root extract 300 mg 300 mg PO HS 05/30/21 10/02/21 06/23/21 capsule cholecalciferol (vitamin D3) 125 125 mcg PO 2XWK 05/30/21 10/02/21 06/24/21 mcg (5,000 unit) tablet (Vitamin D3) ferrous sulfate 325 mg (65 mg 325 mg PO QAM 05/30/21 10/02/21 06/24/21 iron) tablet morphine 15 mg immediate release 60 mg PO BID PRN 05/30/21 10/02/21 06/23/21 tablet spironolactone 25 mg tablet 25 mg PO QAM 05/30/21 10/02/21 06/24/21 prednisone 1 mg tablet 2 mg PO QAM 06/24/21 10/02/21 06/24/21 ondansetron 4 mg disintegrating 4 mg PO Q8H PRN 4 Days #20 tab 07/09/21 10/02/21 Unknown tablet Past Medical History Medical History (Updated 10/02/21 @ 15:57 by Tere Solis) Cardiomyopathy Nonischemic- resolved Chronic back pain hx pain pump -- worked for 7 days and then became infected and was removed. unable to reinsert. done in [place] "a long time ago" Chronic use of steroids Congestive heart failure Elevated hemidiaphragm Right GERD (gastroesophageal reflux disease) Well controlled and stable History of COVID-19 05/2021 asymptomatic. tested positive incidentally while being inpatient with appendicitis Hypertension Stable Kidney stones No recent issues LBBB (left bundle branch block) Chronic Restrictive airway disease Per records > Pt denies Per 06/2020 PFTS: Moderate restrictive physiology with bronchodilator response and decreased DLCO Rheumatoid arthritis Steroid dependent- follows with rheum - Dr. Roman Spinal stenosis of lumbar region at multiple levels Past Family History Family History Mother Family hx of colon cancer Father , age 65 Myocardial infarction Past Surgical History Surgical History H/O cervical spine surgery 2 or 3 levels, full rom. History of colonoscopy History of laparoscopic appendectomy (06/24/21) Laparoscopic Appendectomy, Enterolysis, Repair of Umbilical Hernia - Juan Jones, DO 06/24/2021 History of lithotripsy History of lumbar fusion X 2 WITH HARDWARE L2-L4 decompression-fusion 08/06/2020: Grade 1 view, Casey#2, ETT#8.0 atraumatic x 1. No issues per anesthesia postop progress note. History of total knee replacement 11/11/2019: SAB + PNB. No issues per anesthesia postop progress note. Social History Smoking Status: Never smoker Do You Dip or Chew Tobacco: No Hx Alcohol Use: No (patient reports no alcohol use) Alcohol type: hard liquor Hx Substance Use: No substance use type: does not use Testing Electrocardiogram Date: 06/25/21 Normal sinus rhythm at 85 bpm. Left bundle branch block. Echocardiogram Date: 07/20/20 EF 60-65%. No regional motion abnormality. Mild concentric LVH. Abnormal (paradoxical) septal motion consistent with LBBB. Mild biatrial dilation. No significant valvular disease. Compared to echo 11/04/2019, there is been no significant change per report. Stress Test Date: 07/17/17 Type:nuclear (LEXISCAN) No significant ischemic changes. Normal wall motion. EF 49%. Constant chest pain (did not worsen with Lexiscan). Indeterminate Lexiscan EKG due to LBBB. Pulmonary Function Test Date: 07/18/20 Moderate restrictive physiology with bronchodilator response and decreased DLCO Cervical Spine Date: 06/05/21 No acute abnormality. Status post internal fixation with no evidence for instability. Degenerative disc and degenerative joint disease above and below the spine fusion. Other Testing Chest CT (07/26/21) Interval development of multiple groundglass opacities which may represent infectious/inflammatory process. Bilateral atelectasis is seen. Multiple tiny stable pulmonary nodules as above.
--- NOTE | 2021-10-03 09:06 | History & Physical Report ---
Date of Service October 03, 2021 Assessment & Plan (1) Osteoarthritis of right hip: We will proceed with a right anterior total arthroplasty. Postoperatively he will be started on aspirin for DVT prophylaxis and kept overnight in the hospital for postoperative medical management. He plans to use energy physical therapy upon discharge. History of Present Illness Chief Complaint: Osteoarthritis of the right hip. Primary Care Provider: Giuseppe Romero MD Aditya is a pleasant 60-year-old male who I did a right total knee arthroplasty on a year and a half ago. He has done well with that. He has a lot of lumbar pain and takes chronic oxycodone and morphine for that. He has been dealing with increasing right hip pain. All of his pain is located in his groin. He examined like hip arthritis. 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 He had a right hip intra-articular injection, which alleviated 100% of his pain. Unfortunately, his pain is returning. Hehas to use a cane because of his hip pain. He has elected to proceed with a right anterior total hip arthroplasty. Allergies Allergy/AdvReac Type Severity Reaction Status Date / Time No Known Drug Allergies Allergy Verified 08/07/21 09:29 Home Medications Medication Instructions Recorded Confirmed Type amlodipine 5 mg tablet 5 mg PO QAM 03/24/18 10/02/21 History doxazosin 8 mg tablet 8 mg PO QAM 03/24/18 10/02/21 History gabapentin 100 mg capsule 100 mg PO QAM 03/24/18 10/02/21 History omeprazole 20 mg capsule,delayed 20 mg PO BID 03/24/18 10/02/21 History release prednisone 5 mg tablet 5 mg PO QAM 03/24/18 10/02/21 History cyanocobalamin (vitamin B-12) 1,000 mcg PO QAM 07/21/19 10/02/21 History 1,000 mcg capsule sacubitril 97 mg-valsartan 103 mg 1 tab PO BID 10/20/19 10/02/21 History tablet (Entresto) labetalol 100 mg tablet 50 mg PO BID tab 11/04/19 10/02/21 History multivitamin 1 tab PO QAM 01/19/20 10/02/21 History duloxetine 30 mg capsule,delayed 30 mg PO HS 06/28/20 10/02/21 History release gabapentin 300 mg capsule 300 mg PO TID 06/28/20 10/02/21 History memantine 10 mg tablet 10 mg PO BID 06/28/20 10/02/21 History buspirone 15 mg tablet 15 mg PO BID tab 07/04/20 10/02/21 History morphine 30 mg tablet,extended 30 mg PO BID 11/09/20 10/02/21 History release (MS Contin) amoxicillin 500 mg tablet 2,000 mg PO ONCE #4 tab 03/29/21 10/02/21 Rx ashdaindha root extract 300 mg 300 mg PO HS 05/30/21 10/02/21 History capsule cholecalciferol (vitamin D3) 125 125 mcg PO 2XWK 05/30/21 10/02/21 History mcg (5,000 unit) tablet (Vitamin D3) ferrous sulfate 325 mg (65 mg 325 mg PO QAM 05/30/21 10/02/21 History iron) tablet morphine 15 mg immediate release 60 mg PO BID PRN 05/30/21 10/02/21 History tablet spironolactone 25 mg tablet 25 mg PO QAM 05/30/21 10/02/21 History prednisone 1 mg tablet 2 mg PO QAM 06/24/21 10/02/21 History ondansetron 4 mg disintegrating 4 mg PO Q8H PRN 4 Days #20 tab 07/09/21 10/02/21 Rx tablet Past Med/Surg History Medical History Cardiomyopathy Nonischemic- resolved Chronic back pain hx pain pump -- worked for 7 days and then became infected and was removed. unable to reinsert. done in [place] "a long time ago" Chronic use of steroids Congestive heart failure Elevated hemidiaphragm Right GERD (gastroesophageal reflux disease) Well controlled and stable History of COVID-19 05/2021 asymptomatic. tested positive incidentally while being inpatient with appendicitis Hypertension Stable Kidney stones No recent issues LBBB (left bundle branch block) Chronic Restrictive airway disease Per records > Pt denies Per 06/2020 PFTS: Moderate restrictive physiology with bronchodilator response and decreased DLCO Rheumatoid arthritis Steroid dependent- follows with rheum - Dr. Roman Spinal stenosis of lumbar region at multiple levels Surgical History H/O cervical spine surgery 2 or 3 levels, full rom. History of colonoscopy History of laparoscopic appendectomy (06/24/21) Laparoscopic Appendectomy, Enterolysis, Repair of Umbilical Hernia - Juan Jones DO 06/24/2021 History of lithotripsy History of lumbar fusion X 2 WITH HARDWARE L2-L4 decompression-fusion 08/06/2020: Grade 1 view, Casey#2, ETT#8.0 atraumatic x 1. No issues per anesthesia postop progress note. History of total knee replacement 11/11/2019: SAB + PNB. No issues per anesthesia postop progress note. Family History Mother Family hx of colon cancer Father , age 65 Myocardial infarction Social History Smoking Status: Never smoker Second Hand Exposure: No; Do You Dip or Chew Tobacco: No; Tobacco Cessation Education Requested by Patient: No Hx Alcohol Use: No (patient reports no alcohol use) Hx Substance Use: No Preferred Language: Egyptian Communication Ability: Effective Visual Impairment: No Limitations Software Engineer Intern Required: No Beliefs That Will Affect Care: None marital status: Single Current Living Situation: Significant Other current occupational status: retired and disabled 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 Physical Exam On physical examination the right hip, and ambulates with a cane. He has very limited range of motion of his hip. He has pain in his groin. Constitutional WD/WN, vitals as above Eyes PERRL, conjunctivae normal, anicteric sclerae ENMT external ear and nose normal, oropharynx normal Neck trachea midline, no thyromegaly Respiratory normal respiratory effort Cardiovascular RRR, no murmur, no edema Gastrointestinal (Abdomen) normal bowel sounds, soft, nontender, no hepatosplenomegaly Psychiatric A+Ox3, euthymic affect Results & Data Results & Data Laboratory Results . Diagnostic Findings X-rays of the right hip show advanced osteoarthritis with joint space narrowing, osteophyte formation, and [id number] articulation. PG Care Time/CCT Total # of Minutes Spent Total Time Spent with Patient: Total time spent is greater than 50% in coordination of care (as documented) at patient's floor/unit and/or counseling patient: Coding Level of Care Code None Diagnoses Osteoarthritis of right hip M16.11
[~2021-10-07 07:41] MED LIST changes: -BUPIVACAINE 0.5 % 5 MG/1 ML PF 10ML VIAL ONE; -BUPIVACAINE/EPINEPHRINE 0.25% 1:200,000 30 ML VIAL ONE; -CEFAZOLIN 2000MG 2,000 MG/15 ML SYR IV SCH; +GABAPENTIN 300 MG CAP PO SCH; -GABAPENTIN 600 MG DOSE PO SCH; -KETAMINE / NSS 500 MG/500 ML BAG IV SCH; +Ketorolac (*for OR use only*) 30 MG, dexAMETHasone 4 MG, KETAMINE HCL (**OR use only) 1... INFIL SCH; +LR 15ML/HR IV SCH; +LR 500ML BOLUS IV SCH; -LR 500ML BOLUS, THEN 15ML/HR IV SCH; -ROPIVACAINE 0.5% HCL/PF 150 MG, BUPIVACAINE 0.5% MPF 30 ML, EPINEPHrine 30MG/30ML (OR U... INSTIL SCH; +[UNRECOGNIZED DRUG - OTHER] SCH; +ceFAZolin 2000MG 2,000 MG/15 ML SYR IV SCH
[2021-10-07] MEDS ORDERED: BUPIVACAINE 0.5 % 5 MG/1 ML PF 10ML VIAL ONE (07:50)
[2021-10-07] MEDS ORDERED: fentaNYL citrate 100 MCG/2 ML VIAL ONE (09:13)
[2021-10-07] MEDS ORDERED: LIDOCAINE 2% 2 ML VIAL/AMP(20MG/ML) INFIL ONE ×2 (09:13→12:09)
[2021-10-07] MEDS ORDERED: PROPOFOL IV EMULSION 10 MG/ML 20 ML VIAL IV ONE ×3 (09:13→12:09)
[2021-10-07] MEDS ORDERED: MIDAZOLAM HCL 1 MG/ML 2ML VIAL ONE ×2 (09:13→11:19)
--- NOTE | 2021-10-07 10:31 | History & Physical Bridge Note ---
Date of Service October 07, 2021 History & Physical Bridge Note I have examined the patient, reviewed the History & Physical and in the interval since the performance of the History & Physical I have noted the following changes of clinical significance: no changes noted
[2021-10-07] MEDS ORDERED: ORTHO JOINT ANESTHETIC ONE (10:44)
[2021-10-07] MEDS ORDERED: ePHEDrine sulfate 50 MG/ML AMP ONE (11:31)
--- NOTE | 2021-10-07 12:28 | Operative Report ---
PG Post Operative Report Pre & Post Diagnosis Operation Date: 10/07/21 10:50 Pre-Op Diagnosis: Osteoarthritis of right hip Post-Op Diagnosis: Osteoarthritis of right hip I identified the patient and participated in the time-out.: Yes Procedure Operation Date: 10/07/21 10:50 Actual Procedures p Right Anterior Total Hip Arthroplasty(Right) - Everton Cary DO Surgeon Everton Cary, Fire Prevention Specialist Everton Oh PAC Estimated Blood Loss 250 Findings Consistent with Post-Op Diagnosis Specimens Right femoral head Complications none Disposition Disposition: Recovery Room Indications Orlando is a pleasant 61-year-old male who is been dealing with chronic increasing right hip and groin pain. X-rays and clinical examination have been diagnostic for advanced osteoarthritis of the right hip. After failing conservative treatment, he has elected proceed with a right anterior total hip arthroplasty. Description of Procedure Implants used I used a ZimmerBiomet total hip arthroplasty system with a size 4 high offset Avenir Complete stem, a 56mm G7 cup, an E1 polyethylene liner, a 40mm ceramic head with a -3.5 neck. Orlando arrived at the hospital for the above procedure. He was seen in the preoperative holding area and the operative extremity was identified and signed. He was given a spinal anesthetic, a preoperative antibiotic, and TXA. He was then taken back to the operating room and laid on the table in the supine position. He was given basic sedation. The operative leg was secured to a Puristst leg positioner. The hip was then prepped and draped in sterile fashion. A timeout was done and the patient and the operative extremity was properly identified. An anterior approach was used. Dissection was taken down through the fascia and the tensor muscle belly was retracted laterally and the rectus was retracted medially. The circumflex vessels were identified and ligated. The capsule was then incised and tagged for later repair. The femoral neck was then cut and the femoral head was removed. The acetabulum was exposed. Time was spent doing a complete circumferential labral release. Sequential reaming of the acetabulum up to a size 55 reamer was done. Final reamings were done under fluoroscopy to ensure appropriate version. A Biomet 56mm G7 cup was then impacted into place. The E1 polyethylene liner was then snapped into place. Surrounding soft tissues were then injected with 100 cc of an orthopedic pain control cocktail. The proximal femur was then exposed. Sequential broaching up to a size 4 broach was done. Off that broach a size 40 head with a -3.5 neck was trialed. The hip was reduced and fluoroscopic images showed anatomic alignment of the implants in acceptable length. The broach was removed. The final size 4 high offset Avenir Complete stem was then impacted into place. A ceramic 40mm head with a -3.5 neck was then impacted onto the stem and the hip was reduced. Final fluoroscopic images showed anatomic alignment of the hip. The capsule was then closed with #1 Vicryl suture. A dilute betadyne lavage was then done for 3 minutes. The joint was then irrigated with normal saline solution. The fascia was closed with #1 PDS suture. Skin was closed with 2-0 Vicryl, travis, and a Silverlon dressing. He was then transferred to a hospital bed and taken to the post anesthesia care unit in stable condition. He tolerated the procedure well. Everton Oh PA-C, was present for the entire procedure. He was critical for patient positioning, prepping, draping, retraction exposure, wound closure and application of sterile dressing. I attest to the content of the Intraoperative Record and any orders documented therein. Any exceptions are noted below.
--- NOTE | 2021-10-07 12:36 | Fluoroscopy Report ---
FL hip RT 1V HISTORY: 61 years-old Male RT right hip total joint arthroplasty COMPARISON: CT abdomen and pelvis 04/02/2022 TECHNIQUE: 2 spot fluoroscopic images of the right hip were obtained utilizing 23.1 seconds fluorosco py time FINDINGS: Right hip total joint arthroplasty demonstrates satisfactory alignment. No acute fracture or unexpect ed opaque foreign body. Expected postoperative soft tissue swelling and deep tissue air. IMPRESSION: Right hip total joint arthroplasty with expected postoperative changes. ACT 112: Negative or not required by law. The above report was generated using voice recognition software. It may contain grammatical, syntax o r spelling errors. Electronically signed by: Jose E White M.D. 10/07/2021 12:34 PM
[2021-10-07] MEDS ORDERED: ONDANSETRON INJ 2 MG/ML 2 ML VIAL IV PRN ×2 (13:16→14:16)
[2021-10-07] MEDS ORDERED: fentaNYL citrate 100 MCG/2 ML VIAL IV PRN (13:16)
[2021-10-07] MEDS ORDERED: ePHEDrine sulfate 50 MG/ML AMP IV PRN (13:16)
[2021-10-07] MEDS ORDERED: ATROPINE SULFATE 0.1 MG/ML 10ML SYR IV PRN (13:16)
--- NOTE | 2021-10-07 13:24 | XRay Report ---
XR hip 1V RT w pelvis CLINICAL HISTORY: IN PACU - A/P PELVIS and LATERAL HIP TECHNIQUE: 2 views of the right hip and single frontal view of the pelvis were obtained. Comparison: Comparison is made to right hip radiograph 02/20/2021 FINDINGS: Patient is status post total hip arthroplasty with expected postsurgical changes including soft tissu e swelling, subcutaneous emphysema, and surgical staple placement. No periarticular lucency or hardwa re fracture is seen. IMPRESSION: Expected postoperative appearance status post placement of total hip arthroplasty. ACT 112: Negative or not required by law. Electronically signed by: Zack Connolly M.D. 10/07/2021 1:23 PM
--- NOTE | 2021-10-07 13:47 | Anesthesiology Progress Note ---
Date of Service October 07, 2021 Anesthesia Post Procedure Vital Signs Vital Signs: Temp Pulse Pulse Resp BP Pulse Ox 10/07/21 13:40 71 17 115/71 94 10/07/21 13:30 75 14 124/73 94 10/07/21 13:20 69 12 133/70 95 10/07/21 13:10 79 14 118/71 97 10/07/21 13:00 100 H 16 133/78 100 10/07/21 12:50 97.7 F 81 16 136/76 98 10/07/21 08:19 97.9 F 64 18 133/70 95 Pain Intensity Right Hip: Pain Intensity: 7 Transfer of Care Handoff Completed per policy Notes Mental Status: alert / awake / arousable and participated in evaluation Patient Amnestic to Procedure: Yes Nausea / Vomiting: adequately controlled Pain: adequately controlled Airway Patency, RR, SpO2: stable & adequate BP & HR: stable & adequate Hydration State: stable & adequate Neuraxial Anesthesia: was administered and sensory block is resolving Anesthetic Complications: no major complications apparent and Pt Satisfied with anesthetic care
[2021-10-07] MEDS ORDERED: bisacodyL 10 MG SUPP PR PRN (14:16)
[2021-10-07] MEDS ORDERED: METOCLOPRAMIDE HCL INJ 5 MG/ML 2 ML VIAL IV PRN (14:16)
[2021-10-07] MEDS ORDERED: MAGNESIUM HYDROXIDE SUSP 30 ML UDC PO PRN (14:16)
[2021-10-07] MEDS ORDERED: NALOXONE HCL 0.4 MG/1 ML VIAL/CARP IV PRN (14:16)
[2021-10-07] MEDS: oxyCODONE HCL IR 5 MG TAB (IMMEDIATE RELEASE) PO PRN ×2 (15:13→19:52)
[2021-10-07] MEDS: ACETAMINOPHEN 500 MG TAB PO SCH ×2 (15:14→20:34)
[2021-10-07] MEDS: GABAPENTIN 300 MG CAP PO SCH ×2 (16:48→20:32)
[2021-10-07] MEDS: ACETAMINOPHEN 1,000 MG/100 ML VIAL IV PRN (17:20)
[2021-10-07] MEDS: SODIUM CHLORIDE 0.9% 1000ML 1,000 ML IV SCH (18:02)
[2021-10-07] MEDS: HYDROmorphone INJ 0.5 MG/0.5 ML SYR IV PRN ×2 (18:03→21:17)
[2021-10-07] MEDS: MoRPHine SULFATE IR 15 MG TAB (IMMEDIATE RELEASE) PO PRN (20:31)
[2021-10-07] MEDS: ceFAZolin 2000MG 2,000 MG/15 ML SYR IV SCH (20:31)
[2021-10-07] MEDS: VALSARTAN/SACUBITRIL 103/97MG TAB PO SCH (20:32)
[2021-10-07] MEDS: ASPIRIN 81 MG ECTAB PO SCH (20:32)
[2021-10-07] MEDS: DULoxetine HCL 30 MG CAP PO SCH (20:33)
[2021-10-07] MEDS: SENNA 8.6 MG TAB PO SCH (20:33)
[2021-10-07] MEDS: busPIRone 15 MG TAB PO SCH (20:33)
[2021-10-07] MEDS: MEMANTINE HCL 10 MG TAB PO SCH (20:33)
[2021-10-07] MEDS: LABETALOL HCL 100 MG TAB PO SCH (20:33)
[2021-10-07] MEDS: DOCUSATE SODIUM 100 MG CAP PO SCH (20:34)
[2021-10-07] MEDS: MoRPHine SULFATE CR 15 MG TABCR PO SCH (21:18)
[2021-10-07] MEDS: KETOROLAC 30 MG/ML VIAL IV SCH (22:00)
[2021-10-07] MEDS: HYDROmorphone INJ 1 MG/ML SYRINGE IV PRN ×2 (22:00→23:48)
[2021-10-08] MEDS: HYDROmorphone INJ 1 MG/ML SYRINGE IV PRN ×7 (01:23→20:14)
[2021-10-08] MEDS: oxyCODONE HCL IR 5 MG TAB (IMMEDIATE RELEASE) PO PRN ×4 (02:42→21:42)
[2021-10-08] MEDS: SODIUM CHLORIDE 0.9% 1000ML 1,000 ML IV SCH (03:43)
[2021-10-08] MEDS: ceFAZolin 2000MG 2,000 MG/15 ML SYR IV SCH (03:43)
[2021-10-08] MEDS: KETOROLAC 30 MG/ML VIAL IV SCH ×4 (05:46→23:05)
[2021-10-08] MEDS: ACETAMINOPHEN 500 MG TAB PO SCH ×3 (05:46→22:56)
[2021-10-08] MEDS: ACETAMINOPHEN 1,000 MG/100 ML VIAL IV PRN ×3 (05:46→23:05)
--- NOTE | 2021-10-08 07:13 | Orthopedic Progress Note ---
Date of Service October 08, 2021 Assessment & Plan (1) Status post right hip replacement: He is still struggling with pain. His blood pressure has been running low so I want to be careful about increasing his pain medications too much. He is currently on MS Contin and oral morphine. He has IV Dilaudid ordered. He is on IV Toradol as well as IV Tylenol. We will see how he does today with physical therapy. If he does well and he wants to return home, he can return home on his oral morphine and some oral Toradol. If he struggles today with therapy, or with pain, he can stay another night for pain control. We will see how he does. He is currently on aspirin for DVT prophylaxis. Subjective Orlando was seen and examined at bedside this morning. He had a rough night last night with pain. I started him on Toradol 30 mg every 6 hours as well as increased his Dilaudid to 1 mg every 2 hours. That seemed to help with some of his pain. It still pretty sore this morning. He is currently on his MS Contin and his oral morphine. He has not been out of bed yet. Otherwise, he had no acute events overnight. Review of Systems All systems reviewed & are unremarkable except as noted in HPI & below. Physical Exam On physical examination of the right hip, the dressing is clean and dry. His leg lengths are equal.. Results & Data Results & Data Laboratory Results . Diagnostic Findings Postoperative x-rays of the right hip show the prosthesis to be in anatomic alignment without any evidence of fracture, desiccation, or loosening.. PG Care Time/CCT Total # of Minutes Spent Total Time Spent with Patient: Total time spent is greater than 50% in coordination of care (as documented) at patient's floor/unit and/or counseling patient: Coding Level of Care Code 46163 Post Operative Follow-Up Diagnoses Status post right hip replacement Z96.641
[2021-10-08] MEDS ORDERED: dexAMETHasone 4 MG TAB PO SCH (08:00)
[2021-10-08] MEDS: DOCUSATE SODIUM 100 MG CAP PO SCH ×2 (08:10→20:43)
[2021-10-08] MEDS: MoRPHine SULFATE IR 15 MG TAB (IMMEDIATE RELEASE) PO PRN ×2 (08:11→19:24)
[2021-10-08] MEDS: MoRPHine SULFATE CR 15 MG TABCR PO SCH ×2 (08:11→20:42)
[2021-10-08] MEDS: DOXAZosin MESYLATE 4 MG TAB PO SCH (08:12)
[2021-10-08] MEDS: GABAPENTIN 300 MG CAP PO SCH ×4 (08:12→20:43)
[2021-10-08] MEDS: GABAPENTIN 100 MG CAP PO SCH (08:12)
[2021-10-08] MEDS: SPIRONOLACTONE 25 MG TAB PO SCH (08:12)
[2021-10-08] MEDS: MEMANTINE HCL 10 MG TAB PO SCH ×2 (08:13→20:44)
[2021-10-08] MEDS: predniSONE 5 MG TAB PO SCH (08:13)
[2021-10-08] MEDS: busPIRone 15 MG TAB PO SCH ×2 (08:13→20:44)
[2021-10-08] MEDS: LABETALOL HCL 100 MG TAB PO SCH ×2 (08:13→20:44)
[2021-10-08] MEDS: VALSARTAN/SACUBITRIL 103/97MG TAB PO SCH ×2 (08:14→20:44)
[2021-10-08] MEDS: MULTIVITAMIN TAB PO SCH (08:14)
[2021-10-08] MEDS: predniSONE 1 MG TAB PO SCH (08:14)
[2021-10-08] MEDS: ASPIRIN 81 MG ECTAB PO SCH ×2 (08:15→20:44)
[2021-10-08] MEDS: SENNA 8.6 MG TAB PO SCH (20:43)
[2021-10-08] MEDS: DULoxetine HCL 30 MG CAP PO SCH (20:44)
[2021-10-09] MEDS: HYDROmorphone INJ 1 MG/ML SYRINGE IV PRN (01:27)
[2021-10-09] MEDS: KETOROLAC 30 MG/ML VIAL IV SCH ×2 (05:16→10:06)
[2021-10-09] MEDS: ACETAMINOPHEN 1,000 MG/100 ML VIAL IV PRN (05:16)
[2021-10-09] MEDS: ACETAMINOPHEN 500 MG TAB PO SCH (05:16)
--- NOTE | 2021-10-09 06:10 | Orthopedic Progress Note ---
Date of Service October 09, 2021 Assessment & Plan (1) Status post right hip replacement: He seems to be doing a lot better today. He is not having as much pain in his right hip. He will be seen again by physical therapy for ambulation and range of motion exercises. He can be discharged home later today. He will follow-up with orthopedics in 2 weeks. Subjective Orlando was seen and examined at bedside this morning. Overall he is doing better. He ambulated well yesterday with physical therapy but was then having a lot of pain afterwards. We kept him another day for pain control. He seems to be doing fine this morning. He has no new complaints. Review of Systems All systems reviewed & are unremarkable except as noted in HPI & below. Physical Exam On physical examination of his right hip, the dressing is clean and dry. His leg lengths are equal. Results & Data Results & Data Laboratory Results . Diagnostic Findings . PG Care Time/CCT Total # of Minutes Spent Total Time Spent with Patient: Total time spent is greater than 50% in coordination of care (as documented) at patient's floor/unit and/or counseling patient: Coding Level of Care Code 38473 Post Operative Follow-Up Diagnoses Status post right hip replacement Z96.641
--- NOTE | 2021-10-09 06:12 | Discharge Summary ---
Date of Service October 09, 2021 Admission HPI (Per Admitting) Aditya is a pleasant 60-year-old male who I did a right total knee arthroplasty on a year and a half ago. He has done well with that. He has a lot of lumbar pain and takes chronic oxycodone and morphine for that. He has been dealing with increasing right hip pain. All of his pain is located in his groin. He examined like hip arthritis. 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 He had a right hip intra-articular injection, which alleviated 100% of his pain. Unfortunately, his pain is returning. Hehas to use a cane because of his hip pain. He has elected to proceed with a right anterior total hip arthroplasty. Admission Exam (Per Admitting) On physical examination the right hip, and ambulates with a cane. He has very limited range of motion of his hip. He has pain in his groin. Principal Diagnosis Same as "Discharge Diagnosis" noted below under Discharge Instructions. Discharge Exam On physical examination of his right hip, the dressing is clean and dry. His leg lengths are equal. Discharge Data Procedures Performed Operation Date: 10/07/21 10:50 Actual Procedures p Right Anterior Total Hip Arthroplasty(Right) - Everton Cary DO Ordered Studies 10/07/21 10:50 [place] hip RT 1V Routine Hospital Course (1) Status post right hip replacement: On September [place] arrived at [facility] and underwent a right hip replacement without complication. Postoperatively he was started on aspirin for DVT prophylaxis and transferred to the general orthopedic floors. His hospital course was relatively uneventful. Over the first night he was having a lot of pain. I increase his pain medications with Dilaudid and Toradol. That seemed to help. He was able to participate well with physical therapy on postop day #1 but was having a lot of pain after the therapy. He was able to receive his pain medications. His blood pressure remained stable. On postop day #2 he was doing better. He was still sore in the hip but he was ready to return home. He was then discharged home. He will follow-up with orthopedics in 2 weeks. PG Care Time/CCT Total # of Minutes Spent Total Time Spent with Patient: Total time spent is greater than 50% in coordination of care (as documented) at patient's floor/unit and/or counseling patient: Discharge Plan Discharge Items Patient Disposition: Home - Home Health Services Reason For Visit: DJD Right Hip Discharge Diagnosis: Right hip replacement Activity: Per Instructions section Non-emergency contact: Surgeon Call non-emergency contact if: your wound has increased redness and your wound has increased drainage Follow-up/Referrals: Giuseppe Romero MD [Primary Care Provider] - Diet: Regular Addtl Attending Provider Instructions: Activity and Therapy Recommendations: * If you are using [facility] then therapy will be provided at your home until they feel you have accomplished all of your goals. * If you are using [facility] then Physical Therapy will be provided until they feel you are ready to start Outpatient Physical Therapy. * If you are not using home therapy then Outpatient Physical Therapy should start about 3-5 days from your day of surgery. Therapy will last about 6-10 weeks * You were shown a series of exercises in the hospital. Do these exercises three times each day including the exercises you were shown in physical therapy. * Get up and walk several times each day.~ For the first four weeks, try not to stand or walk for more than one hour at a time. If you do stand or walk for more than one hour, you will not hurt anything, but your leg will likely swell.~~ * As you feel comfortable, you may change from the walker or crutches to a cane and~then to independent walking. Medications: * Narcotic You will likely be sent home from the hospital with a prescription for the narcotic pain medication that worked best throughout your stay. * Aspirin Most patients will be required to take Aspirin 81mg twice a day for 6 weeks after surgery. This is obtained [id number] and a prescription is not necessary. * Other medications may be prescribed for specific circumstances. If you have any questions, please call the office at . * Resume previous home medications unless otherwise instructed TEDs/Elastic Stockings: The white elastic stockings help limit swelling and prevent blood clots from forming in your legs. The more you wear them, the more they work. Wear them for six weeks. Dressing Care: Leave the Silverlon dressing in place for 7 days. After 7 days you may remove the dressing. If the incision is not draining then you may leave the travis open to air. If there is a little bit of drainage or if the travis are getting stuck on your clothing then cover the incision with a dry dressing. The travis will be removed at your 2 week follow-up appointment. Showering: You may shower with the Silverlon dressing in place. Do not let the shower spray hit the dressing directly. Pat the Silverlon dressing dry. If the dressing becomes wet underneath, then simply remove the dressing. Keep the incision dry until you are 7 days out from the day of surgery. After 7 days you may remove the Silverlon dressing and shower with the travis exposed. Let soapy water run over the travis and pat them dry. Do not scrub or soak the incision. Things To Watch For: * Drainage from the incision site that occurs more than one week after your surgery. * Increased redness at the incision site. * Fever above 102 degrees Fahrenheit. * Unusual chest pain or shortness of breath. * Call [facility] at with any of the above problems Follow-Up Visit: Follow-up with Dr. Cary's PA (Everton Oh) 2-3 weeks after your day of surgery. He will remove your travis and answer any questions. If you have any additional questions or concerns, Dr Cary is usually in the office at the same time and will be available An appointment was probably scheduled when you signed-up for surgery in the office. If you have any questions call Office Instructions: More detailed instructions as well as Frequently Asked Questions were provided in a folder by our office when you signed-up for surgery. Please review these instructions when you get home. If you have any further questions or concerns, please feel free to call the office at [phone] Pending Studies at Discharge: No Stand-Alone Forms: My [facility] Medications and DC Order Prescriptions: New ketorolac 10 mg tablet 10 mg PO TID 5 Days Qty: 15 RF: 0 aspirin 81 mg Tablet,Delayed Release (Dr/Ec) 81 mg PO BID 42 Days Qty: 84 RF: 0 Continued amoxicillin 500 mg tablet 2,000 mg PO ONCE Qty: 4 RF: 2 ondansetron 4 mg tablet,disintegrating 4 mg PO Q8H PRN (Reason: nausea and vomiting) 4 Days Qty: 20 RF: 2 doxazosin [Cardura] 8 mg Tablet 8 mg PO QAM RF: 0 gabapentin 100 mg Capsule 100 mg PO QAM RF: 0 prednisone 5 mg Tablet 5 mg PO QAM RF: 0 omeprazole 20 mg Capsule,Delayed Release(Dr/Ec) 20 mg PO BID RF: 0 labetalol 100 mg tablet 50 mg PO BID RF: 0 buspirone 15 mg tablet 15 mg PO BID RF: 0 cyanocobalamin (vitamin B-12) 1,000 mcg Capsule 1,000 mcg PO QAM RF: 0 Entresto 97-103 mg Tablet 1 tab PO BID RF: 0 multivitamin Tablet 1 tab PO QAM RF: 0 gabapentin 300 mg Capsule 300 mg PO TID RF: 0 memantine [Namenda] 10 mg tablet 10 mg PO BID RF: 0 duloxetine [Cymbalta] 30 mg capsule,delayed release(DR/EC) 30 mg PO HS RF: 0 morphine [MS Contin] 30 mg tablet extended release 30 mg PO BID RF: 0 morphine 15 mg tablet 120 mg PO BID PRN (Reason: pain) RF: 0 spironolactone [Aldactone] 25 mg Tablet 25 mg PO QAM RF: 0 ferrous sulfate 325 mg (65 mg iron) Tablet 325 mg PO QAM RF: 0 ashwagandha root extract 300 mg Capsule 300 mg PO HS RF: 0 cholecalciferol (vitamin D3) [Vitamin D3] 125 mcg (5,000 unit) Tablet 125 mcg PO 2XWK RF: 0 prednisone 1 mg tablet 2 mg PO QAM RF: 0 Discharge Orders: Discharge Order (Routine); Ordered 10/09/21 Ordered By: Everton Cary Admission Data Admit Date/Time: 10/07/21 12:53 Attending Provider: Everton Cary Admit Provider: Everton Cary Primary Care Provider: Giuseppe Romero
[2021-10-09] MEDS: MoRPHine SULFATE CR 15 MG TABCR PO SCH (07:39)
[2021-10-09] MEDS: VALSARTAN/SACUBITRIL 103/97MG TAB PO SCH (08:52)
[2021-10-09] MEDS: busPIRone 15 MG TAB PO SCH (08:52)
[2021-10-09] MEDS: predniSONE 1 MG TAB PO SCH (08:52)
[2021-10-09] MEDS: MEMANTINE HCL 10 MG TAB PO SCH (08:52)
[2021-10-09] MEDS: ASPIRIN 81 MG ECTAB PO SCH (08:52)
[2021-10-09] MEDS: DOXAZosin MESYLATE 4 MG TAB PO SCH (08:53)
[2021-10-09] MEDS: SPIRONOLACTONE 25 MG TAB PO SCH (08:53)
[2021-10-09] MEDS: DOCUSATE SODIUM 100 MG CAP PO SCH (08:53)
[2021-10-09] MEDS: GABAPENTIN 100 MG CAP PO SCH (08:53)
[2021-10-09] MEDS: MULTIVITAMIN TAB PO SCH (08:53)
[2021-10-09] MEDS: predniSONE 5 MG TAB PO SCH (08:54)
[2021-10-09] MEDS: LABETALOL HCL 100 MG TAB PO SCH (08:54)
[2021-10-09] MEDS: oxyCODONE HCL IR 5 MG TAB (IMMEDIATE RELEASE) PO PRN (08:56)
== END 2021-10-09 11:36 | disposition home health service (06) ==
LOC: ASU 07:41 → 3E 07:41

== ENCOUNTER 2022-03-01 10:49 | Inpatient (IN) ==
[2022-03-01] MEDS ORDERED: FAMOTIDINE 20MG IV PUSH 20 MG/5 ML SYR IV STA (12:12)
[2022-03-01] MEDS ORDERED: SODIUM CHLORIDE 0.9% 500 ML IV ONE (12:12)
[2022-03-01] MEDS ORDERED: ONDANSETRON INJ 2 MG/ML 2 ML VIAL IV STA (12:12)
[2022-03-01 12:25] LABS: Basophils # (auto) 0.06 K/uL (0-0.2); Basophils % (auto) 0.6 %; Eosinophils # (auto) 0.41 K/uL (0-0.50); Eosinophils % (auto) 4.1 %; Hematocrit (blood only) 33.1 % (40.1-51.0); Hemoglobin 11.1 g/dl (14.0-18.0); Immature Granulocytes # (auto) 0.13 K/uL (0.00-0.02); Immature Granulocytes % (auto) 1.3 %; Lymphocytes # (auto) 1.26 K/uL (1.2-3.4); Lymphocytes % (auto) 12.7 %; Mean Corpuscular Hgb Conc 33.5 g/dL (32.0-36.0); Mean Corpuscular Volume 92.5 fL (80.0-100.0); Mean Platelet Volume 9.3 fL (9.4-12.4); Monocytes # (auto) 0.97 K/uL (0.24-0.82); Monocytes % (auto) 9.7 %; Neutrophils # (auto) 7.12 K/uL (1.4-6.5); Neutrophils % (auto) 71.6 %; Platelet Count 340 K/uL (130-400); RDW Coefficient of Variation 13.1 % (11.5-14.5); RDW Standard Deviation 44.6 fL (36.4-46.3); Red Blood Count 3.58 M/uL (4.63-6.08); White Blood Count 9.95 K/ul (4.8-10.8)
[2022-03-01 12:47] LABS: Albumin Globulin Ratio 1.2 (0.9-2); Albumin Level 3.5 gm/dl (3.4-5.0); BUN Creatinine Ratio 19.5 (10-20); Bilirubin,Total 0.3 mg/dl (0.2-1.0); Calcium 9.5 mg/dl (8.5-10.1); Est GFR (African American) 52.8 ml/min; Est GFR (Non-African American) 45.5 ml/min; Globulin 2.9 gm/dl (2.5-4.0); Phosphorus 4.2 mg/dl (2.5-4.9); Potassium 6.7 mmol/L (3.5-5.1); Total Protein 6.4 gm/dl (6.0-8.3)
[2022-03-01] MEDS ORDERED: INSULIN HUMAN REGULAR PER IV STA (13:23)
[2022-03-01] MEDS ORDERED: ALBUT/IPRATROP 3MG/0.5MG NEB 3 ML VIAL NEB STA (13:30)
[2022-03-01] MEDS ORDERED: PANTOPRAZOLE BOLUS/DRIP 1 EACH IV STA (13:32)
[2022-03-01] MEDS ORDERED: PANTOprazole 80 MG in DEXTROSE 5% 100 ML IV ONE (13:32)
[2022-03-01] MEDS ORDERED: PANTOprazole 40 MG in DEXTROSE 5% 100 ML IV SCH (14:00)
[2022-03-01] MEDS: CALCIUM GLUCONATE 1,000 MG/60 ML BAG IV SCH ×3 (14:01→17:13)
[2022-03-01] MEDS ORDERED: DEXTROSE 50% 50 ML SYRINGE IV ONE ×2 (14:13→16:36)
[2022-03-01] MEDS: SODIUM CHLORIDE 0.9% 500 ML IV SCH ×3 (14:26→21:58)
--- NOTE | 2022-03-01 15:02 | Emergency Department Note ---
Impression & Plan Acute hyperkalemia, NAHUN (acute kidney injury), C. difficile enteritis ED Provider Note NAME: FESTUS LONG JR AGE: 61 SEX: M ARRIVES VIA: Walk-In INFORMANT: Patient ED PROVIDER(S): Yariel Zarate MD CHIEF COMPLAINT: Diarrhea, n/v PLAN: Disposition: Admit MEDICAL DECISION MAKING: The patient is a pleasant 61-year-old gentleman with a past medical history of prior alcohol dependence in remission, chronic systolic heart failure, chronic pain on chronic narcotics, restrictive airway disease, who presents to the emergency department for evaluation of ongoing nausea, vomiting, diarrhea which she describes as greenish/black that has been persistent for the past 18 days. He was seen by his primary care doctor in the past week and had stool studies performed which was C. difficile gene positive but C. difficile toxin negative and also negative for Shiga toxin. He reports he initially attempted Kaopectate but stopped taking this a week ago and since then has tried Imodium without relief. He denies any fevers or urinary symptoms. He reports that he has had mild congestion. On arrival the patient is fatigued appearing but no distress, afebrile stable vital signs. He has generalized abdominal discomfort without discrete tenderness to palpation. Patient did have black watery diarrhea sent for PCR testing. EKG demonstrates left bundle branch block that is similar to prior. No peaked TW. no sgarbossa criteria CXR negative for acute cardiopulmonary process. WBC and platelets within normal limits. H/H 11.1/33.1 similar to prior values. Chemistry without metabolic acidosis. Creatinine is 1.5 increased from recent with hyperkalemia with potassium of 6.7. Electrolytes and LFTs otherwise unremarkable. Lipase within normal limits. COVID-19 RNA, DEB test was negative. The patient was treated with IV fluid hydration cautiously considering patient's history of systolic heart failure and given his hyperkalemia was treated calcium as well as insulin and dextrose. Upon recheck of the patient's potassium on i- STAT this had improved to 5.7. The patient's creatinine also showed some improving trend to 1.4 on i-STAT. The patient's stool PCR today was positive for C. difficile gene and toxin. He was ordered for oral vancomycin. Protonix also ordered given black stool and elevated BUN. However black stool may be related to FE supplements. Given stable H/H, upper GIB less likley. CT of the abdomen pelvis was performed however report was delayed secondary to PACS downtime. Patient agrees with plan for admission. Case was discussed with DAVIN Chacon hospitalist, who will evaluate the patient for admission. CT abd/pelvis subsequently without acute process. Triage Nursing notes reviewed and agree them. Prior medical records reviewed Vital Signs: reviewed and remarkable for no significant abnormalities Differential diagnosis: Gastroenteritis, food borne illness, infections, appendicitis, diverticulitis, inflammatory bowel disease, obstruction, GI bleed, biliary pathology, volvulus, as well as other pathologies. ER treatment provided: See below. Diagnostics interpreted by me: ECG: Sinus rhythm, 88 bpm bpm, no ectopy, no sgarbossa criteria. Cardiac Monitoring: An order for continuous cardiac monitoring was placed and demonstrated Sinus rhythm, 88 bpm bpm, no ectopy. Laboratory studies: See below Imaging studies: See below Consultation(s): Case was discussed with DAVIN Chacon hospitalist, who will evaluate the patient for admission. HPI: The patient is a pleasant 61-year-old gentleman with a past medical history of prior alcohol dependence in remission, chronic systolic heart failure, chronic pain on chronic narcotics, restrictive airway disease, who presents to the emergency department for evaluation of ongoing nausea, vomiting, diarrhea which she describes as greenish/black that has been persistent for the past 18 days. He was seen by his primary care doctor in the past week and had stool studies performed which was C. difficile gene positive but C. difficile toxin negative and also negative for Shiga toxin. He reports he initially attempted Kaopectate but stopped taking this a week ago and since then has tried Imodium without relief. He denies any fevers or urinary symptoms. He reports that he has had mild congestion. ROS: See above HPI for pertinent positives & negatives. A total of 10 systems reviewed and were otherwise negative. VITALS:See Below PHYSICAL EXAMINATION: GENERAL: Awake, alert, fatigued-appearing, in no distress HENT: Normocephalic, atraumatic. Oropharynx with dry mucous membranes and other mims unremarkable. EYES: Normal conjunctiva. Sclera non-icteric. NECK: Supple. No nuchal rigidity. FROM. No JVD. RESPIRATORY: Clear to auscultation. CARDIAC: Regular rate, normal rhythm. Extremities warm and well perfused. Pulses equal. ABDOMEN: Soft, non-distended. Generalized abdominal discomfort without discrete tenderness to palpation. No rebound or guarding. No masses. RECTAL: Deferred. MUSCULOSKELETAL: Chest examination reveals no tenderness. The back is symmetrical on inspection without obvious abnormality. There is no CVA tenderness to palpation. No joint edema. LOWER EXTREMITIES: Calves are equal size bilaterally and non-tender. No edema. No discoloration. NEURO: Normal sensorium. No sensory or motor deficits noted. SKIN: No rash or jaundice noted. ED COURSE: Critical Care: I have personally spent greater than 75 minutes of critical care time in the direct management of this patient. This includes bedside care, interpretation of diagnostic studies, and testing, discussion with consultants, patient, and family members, and other required patient management activities. This 75 minutes is in excess of all separately billable procedures. Yariel Zarate MD Past Med/Surg History Medical History Acute hypotension Atypical chest pain Back pain Cardiomyopathy Nonischemic- resolved Cardiomyopathy, idiopathic Resolved -- LVEF 55% to 60% on 2 D echo 11/04/2019 Chest pain Chronic back pain hx pain pump -- worked for 7 days and then became infected and was removed. unable to reinsert. done in [place] "a long time ago" Chronic use of steroids Congestive heart failure Elevated hemidiaphragm Right Elevated hemidiaphragm GERD (gastroesophageal reflux disease) Well controlled and stable History of COVID-19 05/2021 asymptomatic. tested positive incidentally while being inpatient with appendicitis Kidney stones No recent issues LBBB (left bundle branch block) Chronic Restrictive airway disease Per records > Pt denies Per 06/2020 PFTS: Moderate restrictive physiology with bronchodilator response and decreased DLCO Rheumatoid arthritis Steroid dependent- follows with rheum - Dr. Roman Sepsis associated hypotension Spinal stenosis of lumbar region at multiple levels Surgical History H/O cervical spine surgery 2 or 3 levels, full rom. History of colonoscopy History of laparoscopic appendectomy (06/24/21) Laparoscopic Appendectomy, Enterolysis, Repair of Umbilical Hernia - Juan Jones, 06/24/2021 History of lithotripsy History of lumbar fusion X 2 WITH HARDWARE L2-L4 decompression-fusion 08/06/2020: Grade 1 view, Casey#2, ETT#8.0 atraumatic x 1. No issues per anesthesia postop progress note. History of total knee replacement 11/11/2019: SAB + PNB. No issues per anesthesia postop progress note. Status post knee replacement Status post right hip replacement (~09/2021) Family History Mother Family hx of colon cancer Father , age 65 Myocardial infarction Other No family history of adverse response to anesthesia No family history of bleeding disorder Social History Smoking Status: Never smoker Second Hand Exposure: No; Hx Alcohol Use: No (patient reports no alcohol use) Hx Substance Use: No Preferred Language: Kinyarwanda Communication Ability: Effective Visual Impairment: No Limitations Sleeper Cutter Required: No Beliefs That Will Affect Care: None marital status: Life Partner Current Living Situation: Significant Other current occupational status: retired and disabled current occupation: [employer] How many Children do You have: 2 Feels Safe at Home: Yes Assistive Devices: Cane and Walker Allergies Allergies Allergy/AdvReac Type Severity Reaction Status Date / Time No Known Allergies Allergy Verified 03/01/22 15:32 Home Meds Home Medications Medication Instructions Recorded Confirmed gabapentin 100 mg capsule 100 mg PO QAM 03/24/18 03/01/22 omeprazole 20 mg capsule,delayed 20 mg PO BID 03/24/18 03/01/22 release sacubitril 97 mg-valsartan 103 mg 1 tab PO BID 10/20/19 03/01/22 tablet (Entresto) multivitamin 1 tab PO QAM 01/19/20 03/01/22 duloxetine 30 mg capsule,delayed 30 mg PO HS 06/28/20 03/01/22 release (Cymbalta) gabapentin 300 mg capsule 300 mg PO TID 06/28/20 03/01/22 buspirone 15 mg tablet 15 mg PO BID 07/04/20 03/01/22 ashwagandha root extract 300 mg 300 mg PO HS 05/30/21 03/01/22 capsule ferrous sulfate 325 mg (65 mg 325 mg PO QAM 05/30/21 03/01/22 iron) tablet spironolactone 25 mg tablet 25 mg PO QAM 05/30/21 03/01/22 (Aldactone) amoxicillin 500 mg tablet 2,000 mg PO DIRECTED PRN 1 HOUR 12/20/21 03/01/22 PRIOR TO DENTAL WORK. prednisone 10 mg tablet 10 mg PO DAILY 12/20/21 03/01/22 doxazosin 8 mg tablet (Cardura) 4 mg PO QAM 01/01/22 03/01/22 morphine 15 mg immediate release 30 mg PO .8 X DAILY PER PT PRN pain 03/01/22 03/01/22 tablet Previous Rx's Medication Instructions Recorded ondansetron 4 mg disintegrating 4 mg PO Q8H PRN nausea and 07/09/21 tablet vomiting 4 days #20 tabs labetalol 100 mg tablet 100 mg PO BID #180 tabs 01/01/22 nitroglycerin 0.4 mg sublingual 0.4 mg sublingual Q5M PRN chest 01/01/22 tablet pain #25 tabs tamsulosin 0.4 mg capsule (Flomax) 0.4 mg PO DAILY #90 caps 01/15/22 diazepam 5 mg tablet 5 mg PO BID PRN anxiety #60 tabs 01/30/22 cholecalciferol (vitamin D3) 125 125 mcg PO 2XWK #30 tabs 02/03/22 mcg (5,000 unit) tablet (Vitamin D3) memantine 10 mg tablet (Namenda) 10 mg PO BID #180 tabs 02/20/22 morphine 30 mg tablet,extended 30 mg PO Q8H PRN pain, severe #90 02/25/22 release (MS Contin) tabs cholestyramine (with sugar) 4 gram 4 g PO DAILY #348.6 grams 02/27/22 oral powder Results & Data (ED) Vital Signs Vital Signs - 24 hr 03/01/22 11:01 Temperature 36.7 C Temperature Source Temporal Artery Scan Pulse Rate 83 Respiratory Rate 18 Blood Pressure 103/61 Blood Pressure Mean 75 Pulse Oximetry 97 Oxygen Delivery Method Room Air Sepsis Recent Fever Within 48 Hours No Sepsis New/Unexplained Change in Mental Status No Sepsis Action Taken by Nursing No Action Required Laboratory Data Attestation: I reviewed the patient's lab results. Result diagrams: 03/01/22 12:15 03/01/22 12:15 Lab Results 10/08/22 10/08/22 10/08/22 Range/Units 12:15 12:15 13:17 WBC 9.95 (4.8-10.8) K/ul RBC 3.58 L (4.63-6.08) M/uL Hgb 11.1 L (14.0-18.0) g/dl POC Hgb (14.0-18.0) g/dl Hct 33.1 L (40.1-51.0) % POC Hct (42-52) % MCV 92.5 (80.0-100.0) fL MCH 31.0 (25.0-34.0) pg MCHC 33.5 (32.0-36.0) g/dL RDW Std Deviation 44.6 (36.4-46.3) fL RDW Coeff of Jaja 13.1 (11.5-14.5) % Plt Count 340 (130-400) K/uL MPV 9.3 L (9.4-12.4) fL Immature Gran % (Auto) 1.3 % Neut % (Auto) 71.6 % Lymph % (Auto) 12.7 % Woodward % (Auto) 9.7 % Eos % (Auto) 4.1 % Baso % (Auto) 0.6 % Neut # (Auto) 7.12 H (1.4-6.5) K/uL Lymph # (Auto) 1.26 (1.2-3.4) K/uL Woodward # (Auto) 0.97 H (0.24-0.82) K/uL Eos # (Auto) 0.41 (0-0.50) K/uL Baso # (Auto) 0.06 (0-0.2) K/uL Immature Gran # (Auto) 0.13 H (0.00-0.02) K/uL POC Sodium (135-144) mmol/L Sodium 134 L (136-145) mmol/L POC Potassium (3.3-5.0) mmol/L Potassium 6.7 H* (3.5-5.1) mmol/L POC Chloride (101-112) mmol/L Chloride 104 (98-107) mmol/L Carbon Dioxide 23 (21-32) mmol/L POC Total CO2 (24-31) mmol/L Anion Gap 7 (3-11) POC Anion Gap (16-25) mmol/L POC BUN (7-18) mg/dl BUN 31 H (6-23) mg/dl Creatinine 1.59 H (0.6-1.4) mg/dl POC Creatinine (0.6-1.3) mg/dl Est Cr Clr Drug Dosing 49.0 ml/min Est GFR ( Amer) 52.8 ml/min Est GFR (Non-Af Amer) 45.5 ml/min BUN/Creatinine Ratio 19.5 (10-20) Glucose 89 (70-99(Fasting)) mg/dl POC Glucose (other) (70-99) mg/dl Calcium 9.5 (8.5-10.1) mg/dl POC Ioniz Calcium Mitchell (1.12-1.32) mmol/l Phosphorus 4.2 (2.5-4.9) mg/dl Magnesium 2.0 (1.7-2.4) mg/dl Total Bilirubin 0.3 (0.2-1.0) mg/dl AST 14 (13-39) U/L ALT 10 (7-52) U/L Alkaline Phosphatase 67 (34-104) U/L B-Natriuretic Peptide (0-100) pg/ml Total Protein 6.4 (6.0-8.3) gm/dl Albumin 3.5 (3.4-5.0) gm/dl Globulin 2.9 (2.5-4.0) gm/dl Albumin/Globulin Ratio 1.2 (0.9-2) Lipase 8 L (11-82) U/L Urine Color Urine Appearance (Clear) Urine pH (4.5-7.5) Ur Specific [place] (1.000-1.030) Urine Protein (Negative) Urine Glucose (UA) (Negative) Urine Ketones (Negative) Urine Blood (Negative) Urine Nitrite (Negative) Urine Bilirubin (Negative) Urine Urobilinogen (Negative) Ur Leukocyte Esterase (Negative) Stl C. cayetanensis PCR (NotDetected) Stool Rotavirus A PCR (NotDetected) Stl Adenov F 40/41 PCR (NotDetected) Stool Astrovirus (PCR) (NotDetected) Stool Campylobacter PCR (NotDetected) Stl C.difficile Tox A&B (Negative) Stl C. diff Tox A/B PCR (NotDetected) Stool Cryptosporidium PCR (NotDetected) Stl E.coli Shiga Tox PCR (NotDetected) Stl Enterotoxigenic E PCR (NotDetected) Stool EPEC (PCR) (NotDetected) Stool EAEC (PCR) (NotDetected) Stl E. histolytica PCR (NotDetected) Stool Giardia Lamblia PCR (NotDetected) Stool Salmonella PCR (NotDetected) Stool Sapovirus (PCR) (NotDetected) Stl P. shigelloides PCR (NotDetected) Stl Shigella/EIEC PCR (NotDetected) St Y.enterocolitica PCR (NotDetected) Stool Vibrio (PCR) (NotDetected) Stl Vibrio cholerae PCR (NotDetected) Stl Norovirus GI/GII PCR (NotDetected) SARS-CoV-2, RNA, NAAT NEGATIVE (NEGATIVE) 03/01/22 03/01/22 03/01/22 Range/Units 13:17 14:04 15:14 WBC (4.8-10.8) K/ul RBC (4.63-6.08) M/uL Hgb (14.0-18.0) g/dl POC Hgb (14.0-18.0) g/dl Hct (40.1-51.0) % POC Hct (42-52) % MCV (80.0-100.0) fL MCH (25.0-34.0) pg MCHC (32.0-36.0) g/dL RDW Std Deviation (36.4-46.3) fL RDW Coeff of Jaja (11.5-14.5) % Plt Count (130-400) K/uL MPV (9.4-12.4) fL Immature Gran % (Auto) % Neut % (Auto) % Lymph % (Auto) % Woodward % (Auto) % Eos % (Auto) % Baso % (Auto) % Neut # (Auto) (1.4-6.5) K/uL Lymph # (Auto) (1.2-3.4) K/uL Woodward # (Auto) (0.24-0.82) K/uL Eos # (Auto) (0-0.50) K/uL Baso # (Auto) (0-0.2) K/uL Immature Gran # (Auto) (0.00-0.02) K/uL POC Sodium (135-144) mmol/L Sodium (136-145) mmol/L POC Potassium (3.3-5.0) mmol/L Potassium (3.5-5.1) mmol/L POC Chloride (101-112) mmol/L Chloride (98-107) mmol/L Carbon Dioxide (21-32) mmol/L POC Total CO2 (24-31) mmol/L Anion Gap (3-11) POC Anion Gap (16-25) mmol/L POC BUN (7-18) mg/dl BUN (6-23) mg/dl Creatinine (0.6-1.4) mg/dl POC Creatinine (0.6-1.3) mg/dl Est Cr Clr Drug Dosing ml/min Est GFR ( Amer) ml/min Est GFR (Non-Af Amer) ml/min BUN/Creatinine Ratio (10-20) Glucose (70-99(Fasting)) mg/dl POC Glucose (other) (70-99) mg/dl Calcium (8.5-10.1) mg/dl POC Ioniz Calcium Mitchell (1.12-1.32) mmol/l Phosphorus (2.5-4.9) mg/dl Magnesium (1.7-2.4) mg/dl Total Bilirubin (0.2-1.0) mg/dl AST (13-39) U/L ALT (7-52) U/L Alkaline Phosphatase (34-104) U/L B-Natriuretic Peptide 102 H (0-100) pg/ml Total Protein (6.0-8.3) gm/dl Albumin (3.4-5.0) gm/dl Globulin (2.5-4.0) gm/dl Albumin/Globulin Ratio (0.9-2) Lipase (11-82) U/L Urine Color Yellow Urine Appearance Clear (Clear) Urine pH 5.0 (4.5-7.5) Ur Specific [place] 1.006 (1.000-1.030) Urine Protein Negative (Negative) Urine Glucose (UA) Negative (Negative) Urine Ketones Negative (Negative) Urine Blood Negative (Negative) Urine Nitrite Negative (Negative) Urine Bilirubin Negative (Negative) Urine Urobilinogen Negative (Negative) Ur Leukocyte Esterase Negative (Negative) Stl C. cayetanensis PCR Not Detected (NotDetected) Stool Rotavirus A PCR Not Detected (NotDetected) Stl Adenov F 40/41 PCR Not Detected (NotDetected) Stool Astrovirus (PCR) Not Detected (NotDetected) Stool Campylobacter PCR Not Detected (NotDetected) Stl C.difficile Tox A&B Positive Cdiff Toxin A* (Negative) Stl C. diff Tox A/B PCR C.diff Gene Detected A (NotDetected) Stool Cryptosporidium PCR Not Detected (NotDetected) Stl E.coli Shiga Tox PCR Not Detected (NotDetected) Stl Enterotoxigenic E PCR Not Detected (NotDetected) Stool EPEC (PCR) Not Detected (NotDetected) Stool EAEC (PCR) Not Detected (NotDetected) Stl E. histolytica PCR Not Detected (NotDetected) Stool Giardia Lamblia PCR Not Detected (NotDetected) Stool Salmonella PCR Not Detected (NotDetected) Stool Sapovirus (PCR) Not Detected (NotDetected) Stl P. shigelloides PCR Not Detected (NotDetected) Stl Shigella/EIEC PCR Not Detected (NotDetected) St Y.enterocolitica PCR Not Detected (NotDetected) Stool Vibrio (PCR) Not Detected (NotDetected) Stl Vibrio cholerae PCR Not Detected (NotDetected) Stl Norovirus GI/GII PCR Not Detected (NotDetected) SARS-CoV-2, RNA, NAAT (NEGATIVE) 03/01/22 Range/Units 16:33 WBC (4.8-10.8) K/ul RBC (4.63-6.08) M/uL Hgb (14.0-18.0) g/dl POC Hgb 9.9 L (14.0-18.0) g/dl Hct (40.1-51.0) % POC Hct 29 L (42-52) % MCV (80.0-100.0) fL MCH (25.0-34.0) pg MCHC (32.0-36.0) g/dL RDW Std Deviation (36.4-46.3) fL RDW Coeff of Jaja (11.5-14.5) % Plt Count (130-400) K/uL MPV (9.4-12.4) fL Immature Gran % (Auto) % Neut % (Auto) % Lymph % (Auto) % Woodward % (Auto) % Eos % (Auto) % Baso % (Auto) % Neut # (Auto) (1.4-6.5) K/uL Lymph # (Auto) (1.2-3.4) K/uL Woodward # (Auto) (0.24-0.82) K/uL Eos # (Auto) (0-0.50) K/uL Baso # (Auto) (0-0.2) K/uL Immature Gran # (Auto) (0.00-0.02) K/uL POC Sodium 136 (135-144) mmol/L Sodium (136-145) mmol/L POC Potassium 5.7 H (3.3-5.0) mmol/L Potassium (3.5-5.1) mmol/L POC Chloride 107 (101-112) mmol/L Chloride (98-107) mmol/L Carbon Dioxide (21-32) mmol/L POC Total CO2 22 L (24-31) mmol/L Anion Gap (3-11) POC Anion Gap 13.0 L (16-25) mmol/L POC BUN 25 H (7-18) mg/dl BUN (6-23) mg/dl Creatinine (0.6-1.4) mg/dl POC Creatinine 1.4 H (0.6-1.3) mg/dl Est Cr Clr Drug Dosing ml/min Est GFR ( Amer) ml/min Est GFR (Non-Af Amer) ml/min BUN/Creatinine Ratio (10-20) Glucose (70-99(Fasting)) mg/dl POC Glucose (other) 66 L* (70-99) mg/dl Calcium (8.5-10.1) mg/dl POC Ioniz Calcium Mitchell 1.35 H (1.12-1.32) mmol/l Phosphorus (2.5-4.9) mg/dl Magnesium (1.7-2.4) mg/dl Total Bilirubin (0.2-1.0) mg/dl AST (13-39) U/L ALT (7-52) U/L Alkaline Phosphatase (34-104) U/L B-Natriuretic Peptide (0-100) pg/ml Total Protein (6.0-8.3) gm/dl Albumin (3.4-5.0) gm/dl Globulin (2.5-4.0) gm/dl Albumin/Globulin Ratio (0.9-2) Lipase (11-82) U/L Urine Color Urine Appearance (Clear) Urine pH (4.5-7.5) Ur Specific [place] (1.000-1.030) Urine Protein (Negative) Urine Glucose (UA) (Negative) Urine Ketones (Negative) Urine Blood (Negative) Urine Nitrite (Negative) Urine Bilirubin (Negative) Urine Urobilinogen (Negative) Ur Leukocyte Esterase (Negative) Stl C. cayetanensis PCR (NotDetected) Stool Rotavirus A PCR (NotDetected) Stl Adenov F 40/41 PCR (NotDetected) Stool Astrovirus (PCR) (NotDetected) Stool Campylobacter PCR (NotDetected) Stl C.difficile Tox A&B (Negative) Stl C. diff Tox A/B PCR (NotDetected) Stool Cryptosporidium PCR (NotDetected) Stl E.coli Shiga Tox PCR (NotDetected) Stl Enterotoxigenic E PCR (NotDetected) Stool EPEC (PCR) (NotDetected) Stool EAEC (PCR) (NotDetected) Stl E. histolytica PCR (NotDetected) Stool Giardia Lamblia PCR (NotDetected) Stool Salmonella PCR (NotDetected) Stool Sapovirus (PCR) (NotDetected) Stl P. shigelloides PCR (NotDetected) Stl Shigella/EIEC PCR (NotDetected) St Y.enterocolitica PCR (NotDetected) Stool Vibrio (PCR) (NotDetected) Stl Vibrio cholerae PCR (NotDetected) Stl Norovirus GI/GII PCR (NotDetected) SARS-CoV-2, RNA, NAAT (NEGATIVE) Administered Medications Buspirone HCl (Buspirone 15 Mg Tab) 15 mg PO BID WILLIAM Stop: 03/31/22 20:59 Last Admin: 03/01/22 21:16 Dose: 15 mg Documented By: SN[facility] Duloxetine HCl (Duloxetine Hcl 30 Mg Cap) 30 mg PO HS WILLIAM Stop: 03/31/22 20:59 Last Admin: 03/01/22 21:17 Dose: 30 mg Documented By: ROBERT Gabapentin (Gabapentin 300 Mg Cap) 300 mg PO TID@1200,1630,2100 [facility] Stop: 03/31/22 20:59 Last Admin: 03/01/22 21:17 Dose: 300 mg Documented By: ROBERT Sodium Chloride (Nss) 500 mls @ 125 mls/hr IV .Q4H WILLIAM Stop: 03/02/22 01:29 Last Admin: 03/01/22 21:58 Dose: 125 mls/hr Documented By: Infusion: 03/01/22 21:58 Dose: 125 mls/hr Documented By: Admin: 03/01/22 20:31 Dose: 125 mls/hr Documented By: Infusion: 03/01/22 20:30 Dose: 0 mls/hr Documented By: Admin: 03/01/22 14:26 Dose: 125 mls/hr Documented By: CHILANGO Labetalol HCl (Labetalol Hcl 100 Mg Tab) 100 mg PO BID WILLIAM Stop: 03/31/22 20:59 Last Admin: 03/01/22 21:16 Dose: 100 mg Documented By: ROBERT Morphine Sulfate (Morphine Sulfate Cr 15 Mg Tabcr) 30 mg PO Q8 WILLIAM Stop: 03/15/22 20:59 Last Admin: 03/01/22 21:18 Dose: 30 mg Documented By: ROBERT Pantoprazole Sodium (Pantoprazole 40 Mg Tab) 40 mg PO BID WILLIAM; Protocol Stop: 03/31/22 20:59 Last Admin: 03/01/22 21:57 Dose: 40 mg Documented By: ROBERT Discontinued Medications Albuterol (Albut/Ipratrop 3mg/0.5mg Neb 3 Ml Vial) 3 ml NEB NOW STA; Protocol Stop: 03/01/22 13:31 Last Admin: 03/01/22 14:01 Dose: 3 ml Documented By: LESLEE Calcium Gluconate (Calcium Gluconate 1000 Mg/60 Ml Nss) Confirm Administered Dose 1,000 mg IV .STK-MED ONE Stop: 03/01/22 16:44 Last Admin: 03/01/22 16:54 Dose: 1,000 mg Documented By: CHILANGO Dextrose (Dextrose 50% 50 Ml Syringe) 100 ml IV NOW ONE Stop: 03/01/22 14:14 Last Admin: 03/01/22 14:25 Dose: 100 ml Documented By: CHILANGO Dextrose (Dextrose 50% 50 Ml Syringe) 50 ml IV NOW ONE Stop: 03/01/22 16:37 Last Admin: 03/01/22 16:53 Dose: 50 ml Documented By: CHLIANGO Sodium Chloride (Nss) 500 mls @ 999 mls/hr IV .Q31M ONE Stop: 03/01/22 12:42 Last Infusion: 03/01/22 20:39 Dose: 0 mls/hr Documented By: Admin: 03/01/22 13:03 Dose: 999 mls/hr Documented By: VÍCTOR Famotidine (Pepcid 20mg Iv Push) 20 mg in 5 mls @ 2.5 mls/min IV NOW STA Stop: 03/01/22 12:13 Last Admin: 03/01/22 13:03 Dose: 2.5 mls/min Documented By: VÍCTOR Insulin Human Regular 8 units/ (Syringe) 9.9 mls @ 3 mls/sec IV ONE STA Stop: 03/01/22 13:24 Last Admin: 03/01/22 14:08 Dose: 3 mls/sec Documented By: LESLEE Co-signed By: MEGHANA Calcium Gluconate () 1,000 mg in 60 mls @ 240 mls/hr IV Q15M WILLIAM Stop: 03/01/22 14:14 Last Infusion: 03/01/22 20:39 Dose: 0 mls/hr Documented By: Admin: 03/01/22 17:13 Dose: 240 mls/hr Documented By: Infusion: 03/01/22 17:09 Dose: 240 mls/hr Documented By: Admin: 03/01/22 16:54 Dose: 240 mls/hr Documented By: Infusion: 03/01/22 14:33 Dose: 0 mls/hr Documented By: Admin: 03/01/22 14:01 Dose: 240 mls/hr Documented By: LESLEE Pantoprazole Sodium (Protonix Bolus/Drip) 0 mls @ 1 mls/hr IV ONE STA Stop: 03/01/22 13:33 Last Admin: 03/01/22 14:34 Dose: Not Given Documented By: CHILANGO Pantoprazole Sodium 40 mg/ (Dextrose) 100 mls @ 20 mls/hr IV Q5H WILLIAM Stop: 03/31/22 13:59 Last Infusion: 03/01/22 20:39 Dose: 0 mg/hr, 0 mls/hr Documented By: Admin: 03/01/22 15:29 Dose: 8 mg/hr, 20 mls/hr Documented By: CHILANGO Pantoprazole Sodium 80 mg/ (Dextrose) 120 mls @ 400 mls/hr IV NOW ONE Stop: 03/01/22 13:49 Last Infusion: 03/01/22 15:22 Dose: 0 mls/hr Documented By: Admin: 03/01/22 14:29 Dose: 400 mls/hr Documented By: CHILANGO Ondansetron HCl (Ondansetron Inj 2 Mg/Ml 2 Ml Vial) 4 mg IV NOW STA Stop: 03/01/22 12:13 Last Admin: 03/01/22 13:04 Dose: 4 mg Documented By: VÍCTOR Vancomycin HCl (Vancomycin Hcl 125 Mg/2.5ml Soln) 125 mg PO NOW STA Stop: 03/01/22 16:33 Last Admin: 03/01/22 17:30 Dose: 125 mg Documented By: CHILANGO Imaging Data Radiologist's Impression: Abdomen/Pelvis CT 03/01/22 13:23 CT OF THE ABDOMEN AND PELVIS WITHOUT CONTRAST CLINICAL HISTORY: Abdominal pain, nausea and vomiting. COMPARISON STUDY: CT of the abdomen and pelvis July 31, 2021. TECHNIQUE: Axial images of the abdomen and pelvis were obtained without IV contrast. Images were reviewed in the axial, sagittal, and coronal planes. Automated exposure control was utilized for the study. A dose lowering technique was utilized adhering to the principles of ALARA. FINDINGS: Elevation of the right hemidiaphragm is unchanged. Adjacent opacities likely reflect atelectasis. 6 mm right lower lobe nodule on image 16 of 446 is unchanged from earlier exams. This is likely benign. There is mild cardiomegaly. No pneumatosis, free air or portal venous gas is present. No renal, ureteral or bladder calculi are identified. Evaluation of the remainder of the abdomen and pelvis is suboptimal on this unenhanced exam. Liver, spleen, adrenal glands and pancreas are unremarkable. The appendix is surgically absent. There is no evidence for a bowel obstruction. The cecum is within the right upper quadrant, as before. Postoperative findings within the spine are noted. Right hip arthroplasty is noted. Streak artifact from the arthroplasty limits evaluation of the adjacent soft tissues. Fluid extending along the right iliacus muscle is likely postsurgical. There is stranding and subcutaneous fluid of the right hip. This is likely postsurgical. No lymphadenopathy is present. No acute fracture within the lumbar spine, pelvis or hips is identified. IMPRESSION: 1. No urinary calculi or hydronephrosis. 2. No bowel obstruction. No significant bowel wall thickening on unenhanced exam. 3. Status post right hip arthroplasty. Suboptimal evaluation of the adjacent soft tissues given streak artifact. Small amount of fluid extending along the right iliacus muscle is probably postsurgical. This may be within the right iliopsoas bursa. ACT 112: Negative or not required by law. Electronically signed by: Alfredo Bolton M.D. 03/01/2022 5:14 PM Chest X-Ray 03/01/22 13:29 XR chest 1V portable CLINICAL HISTORY: Cough. COMPARISON STUDY: Chest radiograph December 20, 2021. Chest CT July 26, 2021. FINDINGS: Postoperative findings within the spine are incidentally noted. Elevation of the right hemidiaphragm is unchanged. There is no pneumothorax or pleural effusion. There is no consolidation. Cardiomediastinal silhouette is stable. There is no evidence for pulmonary edema. IMPRESSION: No acute cardiopulmonary findings. Stable elevation of the right hemidiaphragm. ACT 112: Negative or not required by law. Electronically signed by: Alfredo Bolton M.D. 03/01/2022 3:55 PM Discharge Plan Visit Data Chief Complaint: Vomiting Stated Complaint: VOMITING, WEAK ED Provider: Yariel Zarate Discharge Problem: Acute hyperkalemia, ANHUN (acute kidney injury), C. difficile enteritis
[2022-03-01 15:29] LABS: Adenovirus F 40/41 PCR Not Detected (NotDetected); Astrovirus PCR Not Detected (NotDetected); Campylobacter PCR Not Detected (NotDetected); Cryptosporidium PCR Not Detected (NotDetected); Cyclospora cayetanensis PCR Not Detected (NotDetected); Entamoeba histolytica PCR Not Detected (NotDetected); Enteroaggregative E.coli(EAEC) Not Detected (NotDetected); Enteropathogenic E.coli (EPEC) Not Detected (NotDetected); Enterotoxigenic E.coli (ETEC) Not Detected (NotDetected); Giardia lamblia PCR Not Detected (NotDetected); Norovirus GI/GII PCR Not Detected (NotDetected); Plesiomonas shigelloides PCR Not Detected (NotDetected); Rotavirus A PCR Not Detected (NotDetected); Salmonella PCR Not Detected (NotDetected); Sapovirus PCR Not Detected (NotDetected); Shiga-like Toxin E.coli (STEC) Not Detected (NotDetected); Shigella/Enteroinvasive E.coli Not Detected (NotDetected); Vibrio cholerae PCR Not Detected (NotDetected); Vibrio species PCR Not Detected (NotDetected); Yersinia enterocolitica PCR Not Detected (NotDetected)
--- NOTE | 2022-03-01 15:57 | XRay Report ---
XR chest 1V portable CLINICAL HISTORY: Cough. COMPARISON STUDY: Chest radiograph December 20, 2021. Chest CT July 26, 2021. FINDINGS: Postoperative findings within the spine are incidentally noted. Elevation of the right sissy diaphragm is unchanged. There is no pneumothorax or pleural effusion. There is no consolidation. Card iomediastinal silhouette is stable. There is no evidence for pulmonary edema. IMPRESSION: No acute cardiopulmonary findings. Stable elevation of the right hemidiaphragm. ACT 112: Negative or not required by law. Electronically signed by: Alfredo Bolton M.D. 03/01/2022 3:55 PM
[2022-03-01 16:20] LABS: Cdiff Antigen Positive; Cdiff Toxin A+B Positive Cdiff Toxin (Negative)
[2022-03-01] MEDS ORDERED: VANCOMYCIN HCL 125 MG/2.5ML SOLN PO STA (16:32)
[2022-03-01] MEDS ORDERED: CALCIUM GLUCONATE 1000 MG/60 ML NSS IV ONE (16:43)
[2022-03-01 16:46] LABS: iSTAT Creatinine 1.4 mg/dl (0.6-1.3); iSTAT Hemoglobin 9.9 g/dl (14.0-18.0); iSTAT Ionized Calcium 1.35 mmol/l (1.12-1.32); iSTAT Potassium 5.7 mmol/L (3.3-5.0)
--- NOTE | 2022-03-01 16:53 | Electrocardiogram Report ---
Test Reason : Blood Pressure : / mmHG Vent. Rate : 088 BPM Atrial Rate : 088 BPM P-R Int : 196 ms QRS Dur : 144 ms QT Int : 374 ms P-R-T Axes : 061 -25 024 degrees QTc Int : 452 ms Poor data quality, interpretation may be adversely affected Sinus rhythm Left bundle branch block Abnormal ECG When compared with ECG of 20-DEC-2021 22:30, Premature atrial complexes are no longer Present Confirmed by Baljinder Sims ([id number]) on 03/01/2022 4:53:22 PM Referred By: REFERRED SELF Confirmed By:Baljinder Sims
[2022-03-01 16:59] LABS: Appearance Urine Clear (Clear); Bilirubin Urine Negative (Negative); Blood Urine Negative (Negative); Color Urine Yellow; Glucose Urine UA Negative (Negative); Ketones Urine Negative (Negative); Leukocyte Esterase Urine Negative (Negative); Nitrite Urine Negative (Negative); Protein Urine Negative (Negative); Specific Gravity Urine 1.006 (1.000-1.030); Urobilinogen Urine Negative (Negative)
--- NOTE | 2022-03-01 17:07 | History & Physical Report ---
Date of Service March 01, 2022 Assessment & Plan (1) C. difficile enteritis: Plan: admit to Med/surg This is the first episode of Clostridium difficile. Will place on vancomycin PO. will montior. does not appear to be severe, however, given his diarrhea, patient has developed NAHUN and electrolyte abnormalities. will monitor and recheck (2) NAHUN (acute kidney injury): Plan: continue IVF recheck electrolytes in AM. (3) Acute hyperkalemia: Plan: potassium is elevated above 6.5 repeat levels. hold spironolactone and potasium supplements (4) Rheumatoid arthritis: Plan: continue prednisone (5) Chronic back pain: Plan: continue pain meds (6) Acute kidney failure: Plan: as above. History of Present Illness Chief Complaint: diarrhea Primary Care Provider: Giuseppe Romero MD 61 yo male reports having loose watery diarrhea for past 18 days. Patient reports having multiple BMs throughout the day0 no fever chills, no hematochezia or dark stools,, this is accompanied by generalized fatigue and weakness. Patient has had multiple different OTC treatments which has not helped. Given no improvement, and worsening weakness, patient decided to come to the hospital. Patient was found to be in acute renal failure, hyperkalemic and tested positve for c diff. Admission was called. Patient ever had any past clostrium difficile infections in the past. Allergies Allergy/AdvReac Type Severity Reaction Status Date / Time No Known Allergies Allergy Verified 03/01/22 15:32 Home Medications Medication Instructions Recorded Confirmed Type gabapentin 100 mg capsule 100 mg PO QAM 03/24/18 03/01/22 History omeprazole 20 mg capsule,delayed 20 mg PO BID 03/24/18 03/01/22 History release sacubitril 97 mg-valsartan 103 mg 1 tab PO BID 10/20/19 03/01/22 History tablet (Entresto) multivitamin 1 tab PO QAM 01/19/20 03/01/22 History duloxetine 30 mg capsule,delayed 30 mg PO HS 06/28/20 03/01/22 History release (Cymbalta) gabapentin 300 mg capsule 300 mg PO TID 06/28/20 03/01/22 History buspirone 15 mg tablet 15 mg PO BID 07/04/20 03/01/22 History ashwagandha root extract 300 mg 300 mg PO HS 05/30/21 03/01/22 History capsule ferrous sulfate 325 mg (65 mg 325 mg PO QAM 05/30/21 03/01/22 History iron) tablet spironolactone 25 mg tablet 25 mg PO QAM 05/30/21 03/01/22 History (Aldactone) ondansetron 4 mg disintegrating 4 mg PO Q8H PRN nausea and 07/09/21 03/01/22 Rx tablet vomiting 4 days #20 tabs amoxicillin 500 mg tablet 2,000 mg PO DIRECTED PRN 1 HOUR 12/20/21 03/01/22 History PRIOR TO DENTAL WORK. prednisone 10 mg tablet 10 mg PO DAILY 12/20/21 03/01/22 History doxazosin 8 mg tablet (Cardura) 4 mg PO QAM 01/01/22 03/01/22 History labetalol 100 mg tablet 100 mg PO BID #180 tabs 01/01/22 03/01/22 Rx nitroglycerin 0.4 mg sublingual 0.4 mg sublingual Q5M PRN chest 01/01/22 03/01/22 Rx tablet pain #25 tabs tamsulosin 0.4 mg capsule (Flomax) 0.4 mg PO DAILY #90 caps 01/15/22 03/01/22 Rx diazepam 5 mg tablet 5 mg PO BID PRN anxiety #60 tabs 01/30/22 03/01/22 Rx cholecalciferol (vitamin D3) 125 125 mcg PO 2XWK #30 tabs 02/03/22 03/01/22 Rx mcg (5,000 unit) tablet (Vitamin D3) memantine 10 mg tablet (Namenda) 10 mg PO BID #180 tabs 02/20/22 03/01/22 Rx morphine 30 mg tablet,extended 30 mg PO Q8H PRN pain, severe #90 02/25/22 03/01/22 Rx release (MS Contin) tabs cholestyramine (with sugar) 4 gram 4 g PO DAILY #348.6 grams 02/27/22 03/01/22 Rx oral powder morphine 15 mg immediate release 30 mg PO .8 X DAILY PER PT PRN pain 03/01/22 03/01/22 History tablet Past Med/Surg History Medical History Acute hypotension Atypical chest pain Back pain Cardiomyopathy Nonischemic- resolved Cardiomyopathy, idiopathic Resolved -- LVEF 55% to 60% on 2 D echo 11/04/2019 Chest pain Chronic back pain hx pain pump -- worked for 7 days and then became infected and was removed. unable to reinsert. done in [place] "a long time ago" Chronic use of steroids Congestive heart failure Elevated hemidiaphragm Right Elevated hemidiaphragm GERD (gastroesophageal reflux disease) Well controlled and stable History of COVID-19 05/2021 asymptomatic. tested positive incidentally while being inpatient with appendicitis Kidney stones No recent issues LBBB (left bundle branch block) Chronic Restrictive airway disease Per records > Pt denies Per 06/2020 PFTS: Moderate restrictive physiology with bronchodilator response and decreased DLCO Rheumatoid arthritis Steroid dependent- follows with rheum - Dr. Roman Sepsis associated hypotension Spinal stenosis of lumbar region at multiple levels Surgical History H/O cervical spine surgery 2 or 3 levels, full rom. History of colonoscopy History of laparoscopic appendectomy (06/24/21) Laparoscopic Appendectomy, Enterolysis, Repair of Umbilical Hernia - Juan Jones, DO 06/24/2021 History of lithotripsy History of lumbar fusion X 2 WITH HARDWARE L2-L4 decompression-fusion 08/06/2020: Grade 1 view, Casey#2, ETT#8.0 atraumatic x 1. No issues per anesthesia postop progress note. History of total knee replacement 11/11/2019: SAB + PNB. No issues per anesthesia postop progress note. Status post knee replacement Status post right hip replacement (~09/2021) Family History Mother Family hx of colon cancer Father , age 65 Myocardial infarction Other No family history of adverse response to anesthesia No family history of bleeding disorder Social History Smoking Status: Never smoker Second Hand Exposure: No; Do You Dip or Chew Tobacco: No; Hx Alcohol Use: No Hx Substance Use: No Preferred Language: Kazakh Communication Ability: Effective Visual Impairment: No Limitations Statistical Methods Professor Required: No Beliefs That Will Affect Care: None marital status: Life Partner Current Living Situation: Alone current occupational status: retired and disabled current occupation: [employer] How many Children do You have: 2 Other Information That Helps Us Care for You: No Feels Safe at Home: Yes Safety Concerns: Feels Safe At This Time Assistive Devices: Cane and Glasses Review of Systems Constitutional: + fatigue and + weakness; no fever and no body aches Eyes: no blind spots Ear, Nose, Mouth, Throat: no ear pain and no tinnitus Respiratory: no cough Cardiovascular: no chest pain Gastrointestinal: + abdominal pain and + diarrhea/loose stools Genitourinary: no dysuria Musculoskeletal: no back pain Integumentary: no acne Neurologic: no gait abnormality Psychiatric: no behavioral changes and no depression Endocrine: + fatigue Hematologic / Lymphatic: no easy bleeding Allergy / Immunological: no GI upset with certain foods Physical Exam Constitutional: WD/WN, vitals as above Eyes: PERRL, conjunctivae normal, anicteric sclerae ENMT: external ear and nose normal, oropharynx normal Neck: trachea midline, no thyromegaly Respiratory: normal respiratory effort, lungs clear to auscultation Cardiovascular: RRR, no murmur, no edema Gastrointestinal (Abdomen): normal bowel sounds, soft, nontender, no hepatosplenomegaly Musculoskeletal: no cyanosis or clubbing, extremities motor strength 5/5 Skin: no rashes, warm and dry Neurologic: PERRL, EOMI, accommodation nl, no face palsy, no dysarthria Psychiatric: A+Ox3, euthymic affect Lymphatic: no cervical or axillary lymphadenopathy Results & Data Results & Data ([facility]) Vital Signs (Past 12 Hours) Vital Signs Temp Pulse Resp BP Pulse Ox O2 Del Method 03/01/22 11:01 36.7 C 83 18 103/61 97 Room Air PG Care Time/CCT Total # of Minutes Spent Total Time Spent with Patient: Total time spent is greater than 50% in coordination of care (as documented) at patient's floor/unit and/or counseling patient: Coding Level of Care Code 23671 Initial Inpt Care Lvl 3 Diagnoses C. difficile enteritis A04.72 NAHUN (acute kidney injury) N17.9 Acute hyperkalemia E87.5 Rheumatoid arthritis M06.9 Rheumatoid arthritis location: unspecified site Rheumatoid factor presence: unspecified presence Chronic back pain M54.9; G89.29 Acute kidney failure N17.9 (1) Rheumatoid arthritis Rheumatoid arthritis location: unspecified site Rheumatoid factor presence: unspecified presence Qualified Code(s): M06.9 - Rheumatoid arthritis, unspecified
[2022-03-01] MEDS ORDERED: NITROGLYCERIN SL 0.4 MG/TAB TAB SL PRN (17:16)
--- NOTE | 2022-03-01 17:17 | CT Scan Report ---
CT OF THE ABDOMEN AND PELVIS WITHOUT CONTRAST CLINICAL HISTORY: Abdominal pain, nausea and vomiting. COMPARISON STUDY: CT of the abdomen and pelvis July 31, 2021. TECHNIQUE: Axial images of the abdomen and pelvis were obtained without IV contrast. Images were revi ewed in the axial, sagittal, and coronal planes. Automated exposure control was utilized for the gautam dy. A dose lowering technique was utilized adhering to the principles of ALARA. FINDINGS: Elevation of the right hemidiaphragm is unchanged. Adjacent opacities likely reflect atelec tasis. 6 mm right lower lobe nodule on image 16 of 446 is unchanged from earlier exams. This is likel y benign. There is mild cardiomegaly. No pneumatosis, free air or portal venous gas is present. No re nal, ureteral or bladder calculi are identified. Evaluation of the remainder of the abdomen and pelvi s is suboptimal on this unenhanced exam. Liver, spleen, adrenal glands and pancreas are unremarkable. The appendix is surgically absent. There is no evidence for a bowel obstruction. The cecum is within the right upper quadrant, as before. Postoperative findings within the spine are noted. Right hip ar throplasty is noted. Streak artifact from the arthroplasty limits evaluation of the adjacent soft tis sues. Fluid extending along the right iliacus muscle is likely postsurgical. There is stranding and s ubcutaneous fluid of the right hip. This is likely postsurgical. No lymphadenopathy is present. No ac dannie fracture within the lumbar spine, pelvis or hips is identified. IMPRESSION: 1. No urinary calculi or hydronephrosis. 2. No bowel obstruction. No significant bowel wall thickening on unenhanced exam. 3. Status post right hip arthroplasty. Suboptimal evaluation of the adjacent soft tissues given strea k artifact. Small amount of fluid extending along the right iliacus muscle is probably postsurgical. This may be within the right iliopsoas bursa. ACT 112: Negative or not required by law. Electronically signed by: Alfredo Bolton M.D. 03/01/2022 5:14 PM
[2022-03-01] MEDS: LABETALOL HCL 100 MG TAB PO SCH (21:16)
[2022-03-01] MEDS: busPIRone 15 MG TAB PO SCH (21:16)
[2022-03-01] MEDS: DULoxetine HCL 30 MG CAP PO SCH (21:17)
[2022-03-01] MEDS: GABAPENTIN 300 MG CAP PO SCH (21:17)
[2022-03-01] MEDS: MoRPHine SULFATE CR 15 MG TABCR PO SCH (21:18)
[2022-03-01] MEDS: PANTOprazole 40 MG TAB PO SCH (21:57)
[2022-03-02] MEDS: diazePAM 5 MG TABLET PO PRN (00:18)
[2022-03-02] MEDS: VANCOMYCIN HCL 125 MG/2.5ML SOLN PO SCH ×4 (00:20→17:36)
[2022-03-02] MEDS: RASPBERRY SYRUP 5 ML UDP PO SCH ×4 (00:21→17:36)
[2022-03-02] MEDS: MoRPHine SULFATE CR 15 MG TABCR PO SCH ×3 (06:07→21:11)
[2022-03-02] MEDS: LABETALOL HCL 100 MG TAB PO SCH ×2 (10:24→21:10)
[2022-03-02] MEDS: DOXAZosin MESYLATE 4 MG TAB PO SCH (10:25)
[2022-03-02] MEDS: busPIRone 15 MG TAB PO SCH ×2 (10:25→21:10)
[2022-03-02] MEDS: PANTOprazole 40 MG TAB PO SCH ×2 (10:25→21:10)
[2022-03-02] MEDS: TAMSULOSIN HCL 0.4 MG CAP PO SCH (10:25)
[2022-03-02] MEDS: predniSONE 10 MG TABLET PO SCH (10:25)
[2022-03-02] MEDS: MULTIVITAMIN TAB PO SCH (10:25)
[2022-03-02] MEDS: GABAPENTIN 100 MG CAP PO SCH (10:26)
[2022-03-02] MEDS: MoRPHine SULFATE IR 15 MG TAB (IMMEDIATE RELEASE) PO PRN (10:26)
[2022-03-02 10:36] LABS: Basophils # (auto) 0.09 K/uL (0-0.2); Basophils % (auto) 0.8 %; Eosinophils # (auto) 0.25 K/uL (0-0.50); Eosinophils % (auto) 2.2 %; Hematocrit (blood only) 33.8 % (40.1-51.0); Hemoglobin 11.3 g/dl (14.0-18.0); Immature Granulocytes # (auto) 0.11 K/uL (0.00-0.02); Lymphocytes # (auto) 1.06 K/uL (1.2-3.4); Lymphocytes % (auto) 9.5 %; Mean Corpuscular Hemoglobin 30.5 pg (25.0-34.0); Mean Corpuscular Hgb Conc 33.4 g/dL (32.0-36.0); Mean Corpuscular Volume 91.4 fL (80.0-100.0); Mean Platelet Volume 9.3 fL (9.4-12.4); Monocytes # (auto) 0.68 K/uL (0.24-0.82); Monocytes % (auto) 6.1 %; Neutrophils # (auto) 8.99 K/uL (1.4-6.5); Neutrophils % (auto) 80.4 %; Platelet Count 355 K/uL (130-400); RDW Coefficient of Variation 12.8 % (11.5-14.5); RDW Standard Deviation 42.5 fL (36.4-46.3); White Blood Count 11.18 K/ul (4.8-10.8)
[2022-03-02] MEDS: ONDANSETRON INJ 2 MG/ML 2 ML VIAL IV PRN ×2 (11:25→17:27)
[2022-03-02 11:28] LABS: BUN Creatinine Ratio 14.7 (10-20); Calcium 9.1 mg/dl (8.5-10.1); Creatinine Clr Calc Pharmacy 62.8 ml/min; Est GFR (African American) 77.2 ml/min; Est GFR (Non-African American) 66.7 ml/min; Potassium 5.9 mmol/L (3.5-5.1)
[2022-03-02] MEDS: SODIUM CHLORIDE 0.9% 1000ML 1,000 ML IV SCH ×2 (11:28→19:30)
[2022-03-02] MEDS: GABAPENTIN 300 MG CAP PO SCH ×3 (12:09→21:11)
--- NOTE | 2022-03-02 21:09 | Hospitalist Progress Note ---
Date of Service March 02, 2022 Assessment & Plan (1) C. difficile enteritis: Plan: admit to Med/surg This is the first episode of Clostridium difficile. Will place on vancomycin PO. will montior. does not appear to be severe, however, given his diarrhea, patient has developed NAHUN and electrolyte abnormalities. WBC increased, however diarrhea has improved. will closely monitor though as patient is on opiats which may decrease peristalsis and this may decrease bioavailability of the antibiotic to the colon. (2) NAHUN (acute kidney injury): Plan: continue IVF recheck electrolytes in AM. (3) Acute hyperkalemia: Plan: potassium is elevated above 6.5 repeat levels are below 6. will continue to monitor. hold spironolactone and potasium supplements (4) Rheumatoid arthritis: Plan: continue prednisone (5) Chronic back pain: Plan: continue pain meds (6) Acute kidney failure: Plan: creatinine is improving. will continue IVF. Admission and Anticipated Discharge Date Admission Date: March 01, 2022 Subjective 61 yo male reports that his diarrhea has improved in frequency. However it continues to be watery and loose Review of Systems Review of Systems: All systems reviewed & are unremarkable except as noted in HPI & below Physical Exam Constitutional: WD/WN, vitals as above Eyes: PERRL, conjunctivae normal, anicteric sclerae ENMT: external ear and nose normal, oropharynx normal Neck: trachea midline, no thyromegaly Respiratory: normal respiratory effort, lungs clear to auscultation Cardiovascular: RRR, no murmur, no edema Gastrointestinal (Abdomen): normal bowel sounds, soft, nontender, no hepatosplenomegaly Musculoskeletal: no cyanosis or clubbing, extremities motor strength 5/5 Skin: no rashes, warm and dry Neurologic: PERRL, EOMI, accommodation nl, no face palsy, no dysarthria Psychiatric: A+Ox3, euthymic affect Lymphatic: no cervical or axillary lymphadenopathy Results & Data Results & Data ([facility]) Vital Signs (Past 12 Hours) Vital Signs Temp Pulse Resp BP Pulse Ox O2 Del Method 03/02/22 20:49 36.4 C L 88 16 92/52 L 94 Room Air 03/02/22 14:45 36.6 C 81 16 110/65 94 Room Air PG Care Time/CCT Total # of Minutes Spent Total Time Spent with Patient: Total time spent is greater than 50% in coordination of care (as documented) at patient's floor/unit and/or counseling patient: Coding Level of Care Code 54364 Subseq Hosp Care Lvl 3 Diagnoses C. difficile enteritis A04.72 NAHUN (acute kidney injury) N17.9 Acute hyperkalemia E87.5 Rheumatoid arthritis M06.9 Rheumatoid arthritis location: unspecified site Rheumatoid factor presence: unspecified presence Chronic back pain M54.9; G89.29 Acute kidney failure N17.9 (1) Rheumatoid arthritis Rheumatoid arthritis location: unspecified site Rheumatoid factor presence: unspecified presence Qualified Code(s): M06.9 - Rheumatoid arthritis, unspecified
[2022-03-02] MEDS: DULoxetine HCL 30 MG CAP PO SCH (21:10)
[2022-03-03] MEDS: VANCOMYCIN HCL 125 MG/2.5ML SOLN PO SCH ×4 (00:58→17:44)
[2022-03-03] MEDS: RASPBERRY SYRUP 5 ML UDP PO SCH ×4 (00:58→17:44)
[2022-03-03] MEDS: ONDANSETRON INJ 2 MG/ML 2 ML VIAL IV PRN ×4 (01:18→22:00)
[2022-03-03] MEDS: SODIUM CHLORIDE 0.9% 1000ML 1,000 ML IV SCH (03:23)
[2022-03-03] MEDS: MoRPHine SULFATE CR 15 MG TABCR PO SCH ×3 (05:32→21:34)
[2022-03-03 06:33] LABS: Basophils # (auto) 0.05 K/uL (0-0.2); Basophils % (auto) 0.5 %; Eosinophils # (auto) 0.16 K/uL (0-0.50); Eosinophils % (auto) 1.7 %; Hematocrit (blood only) 30.2 % (40.1-51.0); Hemoglobin 10.3 g/dl (14.0-18.0); Immature Granulocytes # (auto) 0.09 K/uL (0.00-0.02); Lymphocytes # (auto) 1.46 K/uL (1.2-3.4); Lymphocytes % (auto) 15.9 %; Mean Corpuscular Hemoglobin 30.9 pg (25.0-34.0); Mean Corpuscular Hgb Conc 34.1 g/dL (32.0-36.0); Mean Corpuscular Volume 90.7 fL (80.0-100.0); Mean Platelet Volume 9.3 fL (9.4-12.4); Monocytes # (auto) 0.72 K/uL (0.24-0.82); Monocytes % (auto) 7.9 %; Neutrophils # (auto) 6.68 K/uL (1.4-6.5); Platelet Count 319 K/uL (130-400); RDW Coefficient of Variation 12.8 % (11.5-14.5); RDW Standard Deviation 42.3 fL (36.4-46.3); Red Blood Count 3.33 M/uL (4.63-6.08); White Blood Count 9.16 K/ul (4.8-10.8)
[2022-03-03 06:46] LABS: BUN Creatinine Ratio 12.4 (10-20); C Reactive Protein 2.08 mg/dl (0-0.5); Calcium 8.3 mg/dl (8.5-10.1); Creatinine Clr Calc Pharmacy 64.4 ml/min; Est GFR (African American) 79.7 ml/min; Est GFR (Non-African American) 68.8 ml/min; Potassium 4.6 mmol/L (3.5-5.1)
[2022-03-03] MEDS: MULTIVITAMIN TAB PO SCH (08:24)
[2022-03-03] MEDS: GABAPENTIN 100 MG CAP PO SCH (08:24)
[2022-03-03] MEDS: PANTOprazole 40 MG TAB PO SCH ×2 (08:24→21:34)
[2022-03-03] MEDS: LABETALOL HCL 100 MG TAB PO SCH ×2 (08:24→21:34)
[2022-03-03] MEDS: busPIRone 15 MG TAB PO SCH ×2 (08:24→21:34)
[2022-03-03] MEDS: DOXAZosin MESYLATE 4 MG TAB PO SCH (08:24)
[2022-03-03] MEDS: predniSONE 10 MG TABLET PO SCH (08:25)
[2022-03-03] MEDS: TAMSULOSIN HCL 0.4 MG CAP PO SCH (08:25)
[2022-03-03] MEDS: GABAPENTIN 300 MG CAP PO SCH ×3 (11:50→21:34)
[2022-03-03] MEDS: DULoxetine HCL 30 MG CAP PO SCH (21:34)
--- NOTE | 2022-03-03 22:06 | Hospitalist Progress Note ---
Date of Service March 03, 2022 Assessment & Plan (1) C. difficile enteritis: Plan: admit to Med/surg This is the first episode of Clostridium difficile. Will place on vancomycin PO. will montior. does not appear to be severe, however, given his diarrhea, patient has developed NAHUN and electrolyte abnormalities. WBC now improving, diarrhea has improved but remains present.. will closely monitor though as patient is on opiates which may decrease peristalsis and this may decrease bioavailability of the antibiotic to the colon. (2) NAHUN (acute kidney injury): Plan: continue IVF recheck electrolytes in AM. resolved on 03/03 continue IVF and monitor (3) Acute hyperkalemia: Plan: potassium is elevated above 6.5 repeat levels are below 6. will continue to monitor. hold spironolactone and potasium supplements resolved on 03/03 repeat blood work and monitor (4) Rheumatoid arthritis: Plan: continue prednisone (5) Chronic back pain: Plan: continue pain meds (6) Acute kidney failure: Plan: creatinine is improving. will continue IVF. Admission and Anticipated Discharge Date Admission Date: March 01, 2022 Subjective Patient reports 2 watery BM in past 12 hours. No fever, pain. Review of Systems Review of Systems: All systems reviewed & are unremarkable except as noted in HPI & below Physical Exam Constitutional: WD/WN, vitals as above Eyes: PERRL, conjunctivae normal, anicteric sclerae ENMT: external ear and nose normal, oropharynx normal Neck: trachea midline, no thyromegaly Respiratory: normal respiratory effort, lungs clear to auscultation Cardiovascular: RRR, no murmur, no edema Gastrointestinal (Abdomen): normal bowel sounds, soft, nontender, no he patosplenomegaly Musculoskeletal: no cyanosis or clubbing, extremities motor strength 5/5 Skin: no rashes, warm and dry Neurologic: PERRL, EOMI, accommodation nl, no face palsy, no dysarthria Psychiatric: A+Ox3, euthymic affect Lymphatic: no cervical or axillary lymphadenopathy Results & Data Results & Data ([facility]) Vital Signs (Past 12 Hours) Vital Signs Temp Pulse Resp BP Pulse Ox O2 Del Method 03/03/22 20:41 36.7 C 91 H 16 124/73 93 Room Air 03/03/22 15:40 37.1 C 88 16 137/77 93 Room Air PG Care Time/CCT Total # of Minutes Spent Total Time Spent with Patient: Total time spent is greater than 50% in coordination of care (as documented) at patient's floor/unit and/or counseling patient: Coding Level of Care Code 22539 Subseq Hosp Care Lvl 3 Diagnoses C. difficile enteritis A04.72 NAHUN (acute kidney injury) N17.9 Acute hyperkalemia E87.5 Rheumatoid arthritis M06.9 Rheumatoid arthritis location: unspecified site Rheumatoid factor presence: unspecified presence Chronic back pain M54.9; G89.29 Acute kidney failure N17.9 (1) Rheumatoid arthritis Rheumatoid arthritis location: unspecified site Rheumatoid factor presence: unspecified presence Qualified Code(s): M06.9 - Rheumatoid arthritis, unspecified
[2022-03-03] MEDS ORDERED: HEPARIN SOD 5,000 UNIT/0.5 ML VIAL SQ STA (22:07)
[2022-03-04] MEDS: RASPBERRY SYRUP 5 ML UDP PO SCH ×5 (00:45→23:00)
[2022-03-04] MEDS: VANCOMYCIN HCL 125 MG/2.5ML SOLN PO SCH ×5 (00:45→23:02)
[2022-03-04] MEDS: MoRPHine SULFATE CR 15 MG TABCR PO SCH ×3 (05:21→21:05)
[2022-03-04] MEDS: ONDANSETRON INJ 2 MG/ML 2 ML VIAL IV PRN ×2 (05:28→16:44)
[2022-03-04 06:02] LABS: Hematocrit (blood only) 28.6 % (40.1-51.0); Hemoglobin 9.8 g/dl (14.0-18.0); Mean Corpuscular Hemoglobin 30.5 pg (25.0-34.0); Mean Corpuscular Hgb Conc 34.3 g/dL (32.0-36.0); Mean Corpuscular Volume 89.1 fL (80.0-100.0); Mean Platelet Volume 9.4 fL (9.4-12.4); Platelet Count 294 K/uL (130-400); RDW Coefficient of Variation 12.8 % (11.5-14.5); RDW Standard Deviation 41.6 fL (36.4-46.3); Red Blood Count 3.21 M/uL (4.63-6.08); White Blood Count 8.94 K/ul (4.8-10.8)
[2022-03-04 06:26] LABS: BUN Creatinine Ratio 9.3 (10-20); C Reactive Protein 0.88 mg/dl (0-0.5); Calcium 8.3 mg/dl (8.5-10.1); Creatinine Clr Calc Pharmacy 67.4 ml/min; Est GFR (African American) 84.2 ml/min; Est GFR (Non-African American) 72.7 ml/min; Potassium 3.9 mmol/L (3.5-5.1)
[2022-03-04] MEDS: LABETALOL HCL 100 MG TAB PO SCH ×2 (08:01→21:06)
[2022-03-04] MEDS: GABAPENTIN 100 MG CAP PO SCH (08:01)
[2022-03-04] MEDS: MULTIVITAMIN TAB PO SCH (08:01)
[2022-03-04] MEDS: PANTOprazole 40 MG TAB PO SCH ×2 (08:02→21:05)
[2022-03-04] MEDS: DOXAZosin MESYLATE 4 MG TAB PO SCH (08:02)
[2022-03-04] MEDS: busPIRone 15 MG TAB PO SCH ×2 (08:02→21:06)
[2022-03-04] MEDS: TAMSULOSIN HCL 0.4 MG CAP PO SCH (08:02)
[2022-03-04] MEDS: predniSONE 10 MG TABLET PO SCH (08:02)
[2022-03-04] MEDS: HEPARIN SOD 5,000 UNIT/0.5 ML VIAL SQ SCH ×2 (09:48→21:08)
[2022-03-04] MEDS: PROCHLORPERAZINE 5 MG in SYRINGE 4 ML IV PRN ×2 (11:00→21:28)
[2022-03-04] MEDS: GABAPENTIN 300 MG CAP PO SCH ×3 (12:00→21:28)
--- NOTE | 2022-03-04 14:41 | XRay Report ---
KUB HISTORY: abdominal distention COMPARISON: Abdomen and pelvis CT 03/01/2022. FINDINGS: The bowel gas pattern is unremarkable. There are no dilated loops of small bowel to suggest an obstruction. No renal calculi. No ureteral calculi. No pneumoperitoneum or pneumatosis. L2-S1 po sterior decompression and fusion with pedicle screws and rods. There is a right total hip arthroplast y. The hardware appears intact. Severe osteoarthritis within the left hip with [id number] articulat ion. Old, healed right 10th rib fracture. Levoscoliosis of the lumbar spine. IMPRESSION: 1. No evidence for bowel obstruction. 2. Postoperative changes as described above. ACT 112: Negative or not required by law. Electronically signed by: Dionisio Lou M.D. 03/04/2022 2:39 PM
[2022-03-04] MEDS: DULoxetine HCL 30 MG CAP PO SCH (21:06)
--- NOTE | 2022-03-04 22:16 | Hospitalist Progress Note ---
Date of Service March 04, 2022 Assessment & Plan (1) C. difficile enteritis: Plan: admit to Med/surg This is the first episode of Clostridium difficile. Will place on vancomycin PO. will montior. does not appear to be severe, however, given his diarrhea, patient has developed NAHUN and electrolyte abnormalities. WBC continues to improve, diarrhea has improved and now is more formed will closely monitor though as patient is on opiates which may decrease peristalsis and this may decrease bioavailability of the antibiotic to the colon. Patient is having nausea.This is likely due to his morphine, as he had renal failure. He has not required his short acting morphine, likely is accumulating due to his poor renal function. Will skip afternoon dose and monitor. (2) NAHUN (acute kidney injury): Plan: continue IVF recheck electrolytes in AM. resolved on 03/03 continue IVF and monitor (3) Acute hyperkalemia: Plan: potassium is elevated above 6.5 repeat levels are below 6. will continue to monitor. hold spironolactone and potasium supplements resolved on 03/03 repeat blood work and monitor (4) Rheumatoid arthritis: Plan: continue prednisone (5) Chronic back pain: Plan: continue pain meds (6) Acute kidney failure: Plan: creatinine is improving. will continue IVF. Admission and Anticipated Discharge Date Admission Date: March 01, 2022 Subjective 61 yo male reports having more nausea today. Reports that his stools are more formed. Review of Systems Review of Systems: All systems reviewed & are unremarkable except as noted in HPI & below Physical Exam Constitutional: WD/WN, vitals as above Eyes: PERRL, conjunctivae normal, anicteric sclerae ENMT: external ear and nose normal, oropharynx normal Neck: trachea midline, no thyromegaly Respiratory: normal respiratory effort, lungs clear to auscultation Cardiovascular: RRR, no murmur, no edema Gastrointestinal (Abdomen): normal bowel sounds, soft, nontender, no hepatosplenomegaly Musculoskeletal: no cyanosis or clubbing, extremities motor strength 5/5 Skin: no rashes, warm and dry Neurologic: PERRL, EOMI, accommodation nl, no face palsy, no dysarthria Psychiatric: A+Ox3, euthymic affect Lymphatic: no cervical or axillary lymphadenopathy Results & Data Results & Data ([facility]) Vital Signs (Past 12 Hours) Vital Signs Temp Pulse Resp BP Pulse Ox O2 Del Method 03/04/22 22:11 36.7 C 82 16 138/77 95 Room Air 03/04/22 15:29 36.5 C 73 17 130/77 95 Room Air 03/04/22 11:55 36.8 C 78 18 131/76 95 Room Air PG Care Time/CCT Total # of Minutes Spent Total Time Spent with Patient: Total time spent is greater than 50% in coordination of care (as documented) at patient's floor/unit and/or counseling patient: Coding Level of Care Code 96876 Subseq Hosp Care Lvl 2 Diagnoses C. difficile enteritis A04.72 NAHUN (acute kidney injury) N17.9 Acute hyperkalemia E87.5 Rheumatoid arthritis M06.9 Rheumatoid arthritis location: unspecified site Rheumatoid factor presence: unspecified presence Chronic back pain M54.9; G89.29 Acute kidney failure N17.9 (1) Rheumatoid arthritis Rheumatoid arthritis location: unspecified site Rheumatoid factor presence: unspecified presence Qualified Code(s): M06.9 - Rheumatoid arthritis, unspecified
[2022-03-04] MEDS: diazePAM 5 MG TABLET PO PRN (23:00)
[2022-03-05] MEDS: MoRPHine SULFATE CR 15 MG TABCR PO SCH ×3 (05:23→21:47)
[2022-03-05] MEDS: VANCOMYCIN HCL 125 MG/2.5ML SOLN PO SCH ×3 (05:23→17:11)
[2022-03-05] MEDS: RASPBERRY SYRUP 5 ML UDP PO SCH ×3 (05:23→17:11)
[2022-03-05 06:46] LABS: Basophils # (auto) 0.05 K/uL (0-0.2); Basophils % (auto) 0.6 %; Eosinophils # (auto) 0.29 K/uL (0-0.50); Eosinophils % (auto) 3.7 %; Hemoglobin 9.3 g/dl (14.0-18.0); Immature Granulocytes # (auto) 0.11 K/uL (0.00-0.02); Immature Granulocytes % (auto) 1.4 %; Lymphocytes # (auto) 2.17 K/uL (1.2-3.4); Lymphocytes % (auto) 27.8 %; Mean Corpuscular Hemoglobin 30.3 pg (25.0-34.0); Mean Corpuscular Hgb Conc 34.4 g/dL (32.0-36.0); Mean Corpuscular Volume 87.9 fL (80.0-100.0); Mean Platelet Volume 8.9 fL (9.4-12.4); Monocytes # (auto) 0.76 K/uL (0.24-0.82); Monocytes % (auto) 9.7 %; Neutrophils # (auto) 4.43 K/uL (1.4-6.5); Neutrophils % (auto) 56.8 %; Platelet Count 285 K/uL (130-400); RDW Coefficient of Variation 12.7 % (11.5-14.5); RDW Standard Deviation 41.1 fL (36.4-46.3); Red Blood Count 3.07 M/uL (4.63-6.08); White Blood Count 7.81 K/ul (4.8-10.8)
[2022-03-05 07:42] LABS: Alanine Aminotransferase 7 U/L (7-52); Albumin Level 2.9 gm/dl (3.4-5.0); Alkaline Phosphatase 53 U/L (34-104); Anion Gap 6 (3-11); Aspartate Aminotransferase 10 U/L (13-39); BUN Creatinine Ratio 8.8 (10-20); Bilirubin,Total 0.2 mg/dl (0.2-1.0); Blood Urea Nitrogen 10 mg/dl (6-23); C Reactive Protein < 0.50 mg/dl (0-0.5); Calcium 8.1 mg/dl (8.5-10.1); Carbon Dioxide 25 mmol/L (21-32); Chloride 107 mmol/L (98-107); Creatinine Clr Calc Pharmacy 64.4 ml/min; Est GFR (African American) 79.7 ml/min; Est GFR (Non-African American) 68.8 ml/min; Glucose 100 mg/dl (70-99(Fasting)); Potassium 3.6 mmol/L (3.5-5.1); Sodium 138 mmol/L (136-145)
[2022-03-05] MEDS: ONDANSETRON INJ 2 MG/ML 2 ML VIAL IV PRN ×2 (08:50→18:22)
[2022-03-05] MEDS: busPIRone 15 MG TAB PO SCH ×2 (08:51→21:47)
[2022-03-05] MEDS: predniSONE 10 MG TABLET PO SCH (08:51)
[2022-03-05] MEDS: DOXAZosin MESYLATE 4 MG TAB PO SCH (08:51)
[2022-03-05] MEDS: PANTOprazole 40 MG TAB PO SCH ×2 (08:51→21:47)
[2022-03-05] MEDS: MULTIVITAMIN TAB PO SCH (08:51)
[2022-03-05] MEDS: GABAPENTIN 100 MG CAP PO SCH (08:52)
[2022-03-05] MEDS: LABETALOL HCL 100 MG TAB PO SCH ×2 (08:52→21:47)
[2022-03-05] MEDS: TAMSULOSIN HCL 0.4 MG CAP PO SCH (08:52)
[2022-03-05] MEDS: HEPARIN SOD 5,000 UNIT/0.5 ML VIAL SQ SCH ×2 (08:53→21:47)
[2022-03-05] MEDS: GABAPENTIN 300 MG CAP PO SCH ×3 (13:31→21:47)
[2022-03-05] MEDS: MoRPHine SULFATE IR 15 MG TAB (IMMEDIATE RELEASE) PO PRN ×2 (15:11→19:06)
[2022-03-05] MEDS: diazePAM 5 MG TABLET PO PRN (21:47)
[2022-03-05] MEDS: DULoxetine HCL 30 MG CAP PO SCH (21:47)
--- NOTE | 2022-03-05 21:51 | Hospitalist Progress Note ---
Date of Service March 05, 2022 Assessment & Plan (1) C. difficile enteritis: Plan: admit to Med/surg This is the first episode of Clostridium difficile. Will place on vancomycin PO. will montior. does not appear to be severe, however, given his diarrhea, patient has developed NAHUN and electrolyte abnormalities. WBC continues to improve, diarrhea has improved and now is more formed will closely monitor though as patient is on opiates which may decrease peristalsis and this may decrease bioavailability of the antibiotic to the colon. ON 03/04 Patient is had nausea.This is likely due to his morphine, as he had renal failure. He has not required his short acting morphine, likely is accumulating due to his poor renal function. Will skip afternoon dose and monitor. This atternoon dose was skipped on 03/05 as well. WBC and BMP has improved. 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 May consider discharge 72 hours after symptoms resolved. That would place discharge for 03/07. (2) NAHUN (acute kidney injury): Plan: continue IVF recheck electrolytes in AM. resolved on 03/03 (3) Acute hyperkalemia: Plan: potassium is elevated above 6.5 repeat levels are below 6. will continue to monitor. hold spironolactone and potasium supplements resolved on 03/03 repeat blood work and monitor may consider restarting spirinolactone at discharge. (4) Rheumatoid arthritis: Plan: continue prednisone (5) Chronic back pain: Plan: continue pain meds (6) Acute kidney failure: Plan: resolved. Admission and Anticipated Discharge Date Admission Date: March 01, 2022 Subjective 61 yo male reports since last night, past reports formed stools. Patient reports decreased nausea. Review of Systems Review of Systems: All systems reviewed & are unremarkable except as noted in HPI & below Physical Exam Constitutional: WD/WN, vitals as above Eyes: PERRL, conjunctivae normal, anicteric sclerae ENMT: external ear and nose normal, oropharynx normal Neck: trachea midline, no thyromegaly Respiratory: normal respiratory effort, lungs clear to auscultation Cardiovascular: RRR, no murmur, no edema Gastrointestinal (Abdomen): normal bowel sounds, soft, nontender, no hepatosplenomegaly Musculoskeletal: no cyanosis or clubbing, extremities motor strength 5/5 Skin: no rashes, warm and dry Neurologic: PERRL, EOMI, accommodation nl, no face palsy, no dysarthria Psychiatric: A+Ox3, euthymic affect Lymphatic: no cervical or axillary lymphadenopathy Results & Data Results & Data ([facility]) Vital Signs (Past 12 Hours) Vital Signs Temp Pulse Resp BP Pulse Ox O2 Del Method 03/05/22 21:41 36.6 C 98 H 20 155/85 H 94 Room Air 03/05/22 14:53 36.8 C 81 18 154/88 H 94 Room Air PG Care Time/CCT Total # of Minutes Spent Total Time Spent with Patient: Total time spent is greater than 50% in coordination of care (as documented) at patient's floor/unit and/or counseling patient: Coding Level of Care Code 04840 Subseq Hosp Care Lvl 3 Diagnoses C. difficile enteritis A04.72 NAHUN (acute kidney injury) N17.9 Acute hyperkalemia E87.5 Rheumatoid arthritis M06.9 Rheumatoid arthritis location: unspecified site Rheumatoid factor presence: unspecified presence Chronic back pain M54.9; G89.29 Acute kidney failure N17.9 (1) Rheumatoid arthritis Rheumatoid arthritis location: unspecified site Rheumatoid factor presence: unspecified presence Qualified Code(s): M06.9 - Rheumatoid arthritis, unspecified
[2022-03-06] MEDS: RASPBERRY SYRUP 5 ML UDP PO SCH ×4 (00:05→17:44)
[2022-03-06] MEDS: ONDANSETRON INJ 2 MG/ML 2 ML VIAL IV PRN ×2 (00:06→19:22)
[2022-03-06] MEDS: VANCOMYCIN HCL 125 MG/2.5ML SOLN PO SCH ×4 (00:06→17:44)
[2022-03-06] MEDS: MoRPHine SULFATE IR 15 MG TAB (IMMEDIATE RELEASE) PO PRN ×3 (04:01→19:24)
[2022-03-06] MEDS: MoRPHine SULFATE CR 15 MG TABCR PO SCH ×3 (05:52→21:26)
[2022-03-06 06:48] LABS: Hematocrit (blood only) 26.9 % (40.1-51.0); Hemoglobin 9.2 g/dl (14.0-18.0); Mean Corpuscular Hemoglobin 30.5 pg (25.0-34.0); Mean Corpuscular Hgb Conc 34.2 g/dL (32.0-36.0); Mean Corpuscular Volume 89.1 fL (80.0-100.0); Mean Platelet Volume 9.2 fL (9.4-12.4); Platelet Count 296 K/uL (130-400); RDW Coefficient of Variation 12.9 % (11.5-14.5); RDW Standard Deviation 41.9 fL (36.4-46.3); Red Blood Count 3.02 M/uL (4.63-6.08); White Blood Count 8.92 K/ul (4.8-10.8)
[2022-03-06 07:24] LABS: BUN Creatinine Ratio 10.7 (10-20); Calcium 8.2 mg/dl (8.5-10.1); Est GFR (African American) 80.6 ml/min; Est GFR (Non-African American) 69.5 ml/min; Potassium 3.5 mmol/L (3.5-5.1)
[2022-03-06] MEDS: busPIRone 15 MG TAB PO SCH ×2 (08:26→21:29)
[2022-03-06] MEDS: LABETALOL HCL 100 MG TAB PO SCH ×2 (08:26→21:27)
[2022-03-06] MEDS: MULTIVITAMIN TAB PO SCH (08:27)
[2022-03-06] MEDS: GABAPENTIN 100 MG CAP PO SCH (08:27)
[2022-03-06] MEDS: PANTOprazole 40 MG TAB PO SCH ×2 (08:27→21:28)
[2022-03-06] MEDS: TAMSULOSIN HCL 0.4 MG CAP PO SCH (08:27)
[2022-03-06] MEDS: HEPARIN SOD 5,000 UNIT/0.5 ML VIAL SQ SCH ×2 (08:27→21:28)
[2022-03-06] MEDS: DOXAZosin MESYLATE 4 MG TAB PO SCH (08:27)
[2022-03-06] MEDS: predniSONE 10 MG TABLET PO SCH (08:27)
[2022-03-06] MEDS: GABAPENTIN 300 MG CAP PO SCH ×3 (11:57→21:26)
--- NOTE | 2022-03-06 12:43 | Hospitalist Progress Note ---
Date of Service March 06, 2022 Assessment & Plan (1) C. difficile enteritis: Plan: admit to Med/surg This is the first episode of Clostridium difficile. Continue vancomycin PO for total 14 days Does not appear to be severe however patient with NAHUN on admission with hyperkalemia. 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 Planning on discharge 03/07 per prior provider (2) NAHUN (acute kidney injury): Plan: Pre-renal. Resolved with IV fluids. (3) Acute hyperkalemia: Plan: Resolved. Secondary to NAHUN with potassium supplementation, Entresto and spironolactone. Now resolved will restart spironolactone and lower dose of Entresto today to see if he is able to restart his higher dose Entresto on discharge. (4) Rheumatoid arthritis: Plan: continue prednisone (5) Chronic back pain: Plan: continue pain meds Plan VTE Prophylaxis - heparin 5000 units SQ BID Diet - regular, low fiber Disposition - admit to med/surg Admission and Anticipated Discharge Date Admission Date: March 01, 2022 Subjective Patient reports much improved diarrhea. Planning on discharge tomorrow per prior MD note. Confirmed he takes MS Contin and prednisone for back pain regularly and unlikely nausea was being caused by this. No further nausea or vomiting today. Review of Systems Review of Systems: All systems reviewed & are unremarkable except as noted in Subjective Physical Exam Constitutional: WD/WN, vitals as above ENMT: external ear and nose normal, oropharynx normal Respiratory: normal respiratory effort, lungs clear to auscultation Cardiovascular: RRR, no murmur, no edema Gastrointestinal (Abdomen): normal bowel sounds, soft, nontender, no hepatosplenomegaly Musculoskeletal: no cyanosis or clubbing, extremities motor strength 5/5 Skin: no rashes, warm and dry Neurologic: moves all extremities and awake; not confused Psychiatric: A+Ox3, euthymic affect Results & Data Results & Data ([facility]) Vital Signs (Past 12 Hours) Vital Signs Temp Pulse Resp BP Pulse Ox O2 Del Method 03/06/22 07:35 36.4 C L 75 17 170/102 H 94 Room Air PG Care Time/CCT Total # of Minutes Spent Total Time Spent with Patient: Total time spent is greater than 50% in coordination of care (as documented) at patient's floor/unit and/or counseling patient: Coding Level of Care Code 66001 Subseq Hosp Care Lvl 1 Diagnoses C. difficile enteritis A04.72 NAHUN (acute kidney injury) N17.9 Acute hyperkalemia E87.5 Rheumatoid arthritis M06.9 Rheumatoid arthritis location: unspecified site Rheumatoid factor presence: unspecified presence Chronic back pain M54.9; G89.29 (1) Rheumatoid arthritis Rheumatoid arthritis location: unspecified site Rheumatoid factor presence: unspecified presence Qualified Code(s): M06.9 - Rheumatoid arthritis, unspecified
[2022-03-06] MEDS: SPIRONOLACTONE 25 MG TAB PO SCH (13:53)
[2022-03-06] MEDS: DULoxetine HCL 30 MG CAP PO SCH (21:27)
[2022-03-06] MEDS: VALSARTAN/SACUBITRIL 51/49 MG TAB PO SCH (21:27)
[2022-03-06] MEDS: MEMANTINE HCL 10 MG TAB PO SCH (21:29)
[2022-03-07] MEDS: RASPBERRY SYRUP 5 ML UDP PO SCH ×3 (00:06→11:47)
[2022-03-07] MEDS: VANCOMYCIN HCL 125 MG/2.5ML SOLN PO SCH ×3 (00:06→11:50)
[2022-03-07] MEDS: MoRPHine SULFATE CR 15 MG TABCR PO SCH (05:49)
[2022-03-07] MEDS: MEMANTINE HCL 10 MG TAB PO SCH (08:44)
[2022-03-07] MEDS: TAMSULOSIN HCL 0.4 MG CAP PO SCH (08:44)
[2022-03-07] MEDS: DOXAZosin MESYLATE 4 MG TAB PO SCH (08:44)
[2022-03-07] MEDS: MULTIVITAMIN TAB PO SCH (08:44)
[2022-03-07] MEDS: predniSONE 10 MG TABLET PO SCH (08:44)
[2022-03-07] MEDS: busPIRone 15 MG TAB PO SCH (08:45)
[2022-03-07] MEDS: SPIRONOLACTONE 25 MG TAB PO SCH (08:45)
[2022-03-07] MEDS: PANTOprazole 40 MG TAB PO SCH (08:45)
[2022-03-07] MEDS: LABETALOL HCL 100 MG TAB PO SCH (08:45)
[2022-03-07] MEDS: GABAPENTIN 100 MG CAP PO SCH (08:46)
[2022-03-07] MEDS: HEPARIN SOD 5,000 UNIT/0.5 ML VIAL SQ SCH (08:46)
[2022-03-07] MEDS: VALSARTAN/SACUBITRIL 51/49 MG TAB PO SCH (08:46)
[2022-03-07] MEDS: GABAPENTIN 300 MG CAP PO SCH (11:47)
--- NOTE | 2022-03-07 13:04 | Discharge Summary ---
Date of Service March 07, 2022 Admission HPI Per Admitting Provider 61 yo male reports having loose watery diarrhea for past 18 days. Patient reports having multiple BMs throughout the day0 no fever chills, no hematochezia or dark stools,, this is accompanied by generalized fatigue and weakness. Patient has had multiple different OTC treatments which has not helped. Given no improvement, and worsening weakness, patient decided to come to the hospital. Patient was found to be in acute renal failure, hyperkalemic and tested positve for c diff. Admission was called. Patient ever had any past clostrium difficile infections in the past. Principal Diagnosis Clostridium difficile colitis Discharge Exam Constitutional WD/WN, vitals as above ENMT external ear and nose normal, oropharynx normal Respiratory normal respiratory effort, lungs clear to auscultation Cardiovascular RRR, no murmur, no edema Gastrointestinal (Abdomen) normal bowel sounds, soft, nontender, no hepatosplenomegaly Musculoskeletal no cyanosis or clubbing, extremities motor strength 5/5 Skin no rashes, warm and dry Neurologic moves all extremities and awake; not confused Psychiatric A+Ox3, euthymic affect Discharge Data Allergies Allergy/AdvReac Type Severity Reaction Status Date / Time No Known Allergies Allergy Verified 03/01/22 15:32 Consultations 03/01/22 16:45 ED Decision to Admit Stat Ordered Studies 03/01/22 13:23 CT abd pelvis wo con Stat IMPRESSION: 1. No urinary calculi or hydronephrosis. 2. No bowel obstruction. No significant bowel wall thickening on unenhanced exam. 3. Status post right hip arthroplasty. Suboptimal evaluation of the adjacent soft tissues given streak artifact. Small amount of fluid extending along the right iliacus muscle is probably postsurgical. This may be within the right iliopsoas bursa. Hospital Course (1) C. difficile enteritis: Aditya Moses is a 61 year old male admitted to [facility] from March 02 - 2021 due to loose watery stools. He was diagnosed with c. diff colitis likely due to recent antibiotic use for cellulitis. C. diff colitis was treated with oral vancomycin during his inpatient stay and recommend a total course of 14 days of antibiotics on discharge. Anti-hypertensives were initially held due to mild NAHUN with Cr 1.59 on admision but these were able to restarted prior to discharge. He also had hyperkalemia on admission with K 6.7. This resolved to 3.5 on discharge by holding potassium supplementation and spirono lactone. Spironolactone was restarted prior to discharge however potassium supplementation was discontinued. Suspect this was due to his NAHUN and recommend repeating BMP at follow up visit. (2) NAHUN (acute kidney injury): (3) Acute hyperkalemia: (4) Rheumatoid arthritis: (5) Chronic back pain: Total Time Total Time Spent Total Time Spent (In Minutes): 35 Discharge Plan Discharge Items Patient Disposition: Home - Self-Care Reason For Visit: CLOSTRIDIUM COLITIS Discharge Diagnosis: Clostridium difficile colitis Activity: Resume your previous activity Non-emergency contact: Primary Care Provider Call non-emergency contact if: you have any medication questions and your symptoms worsen Follow-up/Referrals: Giuseppe Romero MD [Primary Care Provider] - (You have a follow up appt scheduled with Dr. Romero for Mar 13 at 10:45 am. ) Diet: Low Fiber Addtl Attending Provider Instructions: You were admitted to [facility] from March 02 - 2021 due to loose watery stools. You were diagnosed with c. diff colitis (bacterial infection of your colon) likely due to recent antibiotic use for cellulitis. C. diff colitis was treated with oral vancomycin during your inpatient stay and recommend a total course of 14 days of antibiotics on discharge. Please let your healthcare providers know you have been diagnosed with this in the future if you are prescribed antibiotics as this may recur if you are given future antibiotic courses. Pending Studies at Discharge: No Stand-Alone Forms: My [facility], Smoking Cessation Medications and DC Order Prescriptions: New vancomycin 125 mg capsule 125 mg PO QID 9 Days Qty: 36 0RF Continued tamsulosin [Flomax] 0.4 mg capsule 0.4 mg PO DAILY Qty: 90 3RF diazepam 5 mg tablet 5 mg PO BID PRN (Reason: anxiety) Qty: 60 5RF cholecalciferol (vitamin D3) [Vitamin D3] 125 mcg (5,000 unit) tablet 125 mcg PO 2XWK Qty: 30 3RF Rx Instructions: TAKES TUES & FRI. memantine [Namenda] 10 mg tablet 10 mg PO BID Qty: 180 3RF morphine [MS Contin] 30 mg tablet extended release 30 mg PO Q8H PRN (Reason: pain, severe) Qty: 90 0RF cholestyramine (with sugar) 4 gram powder 4 g PO DAILY Qty: 348.6 2RF Rx Instructions: PER PT "ONLY TOOK 2 DOSES THEN STOPPED, DIARRHEA NEVER STOPPED". administer w/meal; avoid other meds within 1hr before or 4-6hr after dose ondansetron 4 mg tablet,disintegrating 4 mg PO Q8H PRN (Reason: nausea and vomiting) 4 Days Qty: 20 2RF labetalol 100 mg tablet 100 mg PO BID Qty: 180 3RF doxazosin [Cardura] 8 mg tablet 4 mg PO QAM nitroglycerin 0.4 mg tablet, sublingual 0.4 mg sublingual Q5M PRN (Reason: chest pain) Qty: 25 3RF Rx Instructions: do not exceed 3 doses per episode gabapentin 100 mg Capsule 100 mg PO QAM omeprazole 20 mg Capsule,Delayed Release(Dr/Ec) 20 mg PO BID buspirone 15 mg tablet 15 mg PO BID Rx Instructions: PT STATES HE TAKES IT TWICE DAILY, MOST RECENT FILL LIST SAYS 4 TIMES DAILY Entresto 97-103 mg Tablet 1 tab PO BID multivitamin Tablet 1 tab PO QAM gabapentin 300 mg Capsule 300 mg PO TID Rx Instructions: TAKES IN THE AFTERNOON, DINNER TIME AND AT BEDTIME duloxetine [Cymbalta] 30 mg capsule,delayed release(DR/EC) 30 mg PO HS spironolactone [Aldactone] 25 mg Tablet 25 mg PO QAM ferrous sulfate 325 mg (65 mg iron) Tablet 325 mg PO QAM ashwagandha root extract 300 mg Capsule 300 mg PO HS morphine 15 mg tablet 30 mg PO .8 X DAILY PER PT PRN (Reason: pain) prednisone 10 mg tablet 10 mg PO DAILY amoxicillin 500 mg tablet 2,000 mg PO DIRECTED PRN (Reason: 1 HOUR PRIOR TO DENTAL WORK.) Discharge Orders: Discharge Order (Routine); Ordered 03/07/22 Ordered By: Sy Salazar/Other Patient Handouts: Clostridium Difficile Infection, What Is C. Diff? Admission Data Admit Date/Time: 03/01/22 17:50 Attending Provider: Sy Shaikh Admit Provider: Misael Fraga Primary Care Provider: Giuseppe Romero Other Providers: Misael Fraga Other Interventions: Discharge Summary Assessment (RN) Last Done: 03/07/22 13:31 Coding Level of Care Code D/C DAY MANAGEMENT >30 MINS Diagnoses C. difficile enteritis A04.72 NAHUN (acute kidney injury) N17.9 Acute hyperkalemia E87.5 Rheumatoid arthritis M06.9 Rheumatoid arthritis location: unspecified site Rheumatoid factor presence: unspecified presence Chronic back pain M54.9; G89.29
== END 2022-03-07 14:56 | disposition home or self-care (01) | DRG 372 ==
LOC: ED 10:49 → 3E 17:50 → SUATTDRO 17:50 → 3E 03-02 05:54
DX: Z98.1 Arthrodesis status; F10.21 Alcohol dependence, in remission; M06.9 Rheumatoid arthritis, unspecified; I44.7 Left bundle-branch block, unspecified; K21.9 Gastro-esophageal reflux disease without esophagitis; Z86.16 Personal history of COVID-19; I42.9 Cardiomyopathy, unspecified; Z79.891 Long term (current) use of opiate analgesic; I50.22 Chronic systolic (congestive) heart failure; N17.9 Acute kidney failure, unspecified; A04.72 Enterocolitis due to Clostridium difficile, not specified as recurrent; E87.5 Hyperkalemia

== ENCOUNTER 2022-03-14 09:48 | Observation (INO) ==
[2022-03-14] MEDS ORDERED: SODIUM CHLORIDE 0.9% 500 ML IV STA (10:15)
--- NOTE | 2022-03-14 10:19 | Emergency Department Note ---
History of Present Illness General Chief complaint: Shortness of Breath/Dyspnea Stated complaint: SOB [facility] REF Time Seen by Provider: 03/14/22 10:07 History of Present Illness 61-year-old male presents to the ED with a chief complaint of some increased swelling in the bilateral lower extremities) left following a hospitalization last week. The patient was hospitalized for C. difficile. He followed up with his PCP yesterday for routine follow-up and was complaining of a little shortness of breath. The patient had outpatient blood work yesterday that showed an elevated D-dimer. He was told to come to the ED today for PE evaluation. The patient has no other specific complaints at this time. Has not had a fever. No cough. He has noted bilateral lower extremity edema that is worse than usual but the right side is worse than the left no calf pain. Home Medications Medication Instructions Recorded Confirmed Type gabapentin 100 mg capsule 100 mg PO QAM 03/24/18 03/13/22 History omeprazole 20 mg capsule,delayed 20 mg PO BID 03/24/18 03/13/22 History release sacubitril 97 mg-valsartan 103 mg 1 tab PO BID 10/20/19 03/13/22 History tablet (Entresto) multivitamin 1 tab PO QAM 01/19/20 03/13/22 History duloxetine 30 mg capsule,delayed 30 mg PO HS 06/28/20 03/13/22 History release (Cymbalta) gabapentin 300 mg capsule 300 mg PO TID 06/28/20 03/13/22 History buspirone 15 mg tablet 15 mg PO BID 07/04/20 03/13/22 History ashwagandha root extract 300 mg 300 mg PO HS 05/30/21 03/13/22 History capsule ferrous sulfate 325 mg (65 mg 325 mg PO QAM 05/30/21 03/13/22 History iron) tablet spironolactone 25 mg tablet 25 mg PO QAM 05/30/21 03/13/22 History (Aldactone) ondansetron 4 mg disintegrating 4 mg PO Q8H PRN nausea and 07/09/21 03/13/22 Rx tablet vomiting 4 days #20 tabs amoxicillin 500 mg tablet 2,000 mg PO DIRECTED PRN 1 HOUR 12/20/21 03/13/22 History PRIOR TO DENTAL WORK. doxazosin 8 mg tablet (Cardura) 4 mg PO QAM 01/01/22 03/13/22 History labetalol 100 mg tablet 100 mg PO BID #180 tabs 01/01/22 03/13/22 Rx nitroglycerin 0.4 mg sublingual 0.4 mg sublingual Q5M PRN chest 01/01/22 03/13/22 Rx tablet pain #25 tabs tamsulosin 0.4 mg capsule (Flomax) 0.4 mg PO DAILY #90 caps 01/15/22 03/13/22 Rx diazepam 5 mg tablet 5 mg PO BID PRN anxiety #60 tabs 01/30/22 03/13/22 Rx cholecalciferol (vitamin D3) 125 125 mcg PO 2XWK #30 tabs 02/03/22 03/13/22 Rx mcg (5,000 unit) tablet (Vitamin D3) memantine 10 mg tablet (Namenda) 10 mg PO BID #180 tabs 02/20/22 03/13/22 Rx morphine 30 mg tablet,extended 30 mg PO Q8H PRN pain, severe #90 02/25/22 03/13/22 Rx release (MS Contin) tabs morphine 15 mg immediate release 30 mg PO .8 X DAILY PER PT PRN pain 03/01/22 03/13/22 History tablet vancomycin 125 mg capsule 125 mg PO QID 9 days #36 caps 03/07/22 03/13/22 Rx prednisone 1 mg tablet 1 mg PO DAILY 03/13/22 03/13/22 History prednisone 5 mg tablet 5 mg PO DAILY 03/13/22 03/13/22 History Allergies Allergy/AdvReac Type Severity Reaction Status Date / Time No Known Allergies Allergy Verified 03/13/22 10:54 Past Med/Surg History Medical History Acute hypotension Atypical chest pain Back pain Cardiomyopathy Nonischemic- resolved Cardiomyopathy, idiopathic Resolved -- LVEF 55% to 60% on 2 D echo 11/04/2019 Chest pain Chronic back pain hx pain pump -- worked for 7 days and then became infected and was removed. unable to reinsert. done in [place] "a long time ago" Chronic use of steroids Congestive heart failure GERD (gastroesophageal reflux disease) Well controlled and stable History of COVID-19 05/2021 asymptomatic. tested positive incidentally while being inpatient with appendicitis Kidney stones No recent issues Restrictive airway disease Per records > Pt denies Per 06/2020 PFTS: Moderate restrictive physiology with bronchodilator response and decreased DLCO Rheumatoid arthritis Steroid dependent- follows with rheum - Dr. Roman Sepsis associated hypotension Spinal stenosis of lumbar region at multiple levels Surgical History H/O cervical spine surgery 2 or 3 levels, full rom. History of colonoscopy History of laparoscopic appendectomy (06/24/21) Laparoscopic Appendectomy, Enterolysis, Repair of Umbilical Hernia - Juan Jones DO 06/24/2021 History of lithotripsy History of lumbar fusion X 2 WITH HARDWARE L2-L4 decompression-fusion 08/06/2020: Grade 1 view, Casey#2, ETT#8.0 atraumatic x 1. No issues per anesthesia postop progress note. History of total knee replacement 11/11/2019: SAB + PNB. No issues per anesthesia postop progress note. Status post knee replacement Status post right hip replacement (~09/2021) Family History Mother Family hx of colon cancer Father , age 65 Myocardial infarction Other No family history of adverse response to anesthesia No family history of bleeding disorder Denies family history of Ovarian cancer Prostate cancer Breast cancer Lung cancer Social History Smoking Status: Never smoker Second Hand Exposure: No; Hx Alcohol Use: No Hx Substance Use: No Preferred Language: Brazilian Communication Ability: Effective Visual Impairment: Partially Limited Return Agent Required: No Beliefs That Will Affect Care: None marital status: Life Partner Current Living Situation: Alone current occupational status: retired and disabled current occupation: [employer] How many Children do You have: 2 Feels Safe at Home: Yes Childhood Exposure to Second-Hand Smoke: No caffeine: Yes Dental Care, Regularly: Yes Physical Activity Frequency: Does not Exercise Seatbelt Use: sometimes Sunscreen Use: No Assistive Devices: None Review of Systems A total of 10 systems reviewed and were otherwise negative Physical Exam Vital Signs Vital Signs - 24 hr 03/14/22 09:59 03/14/22 10:15 03/14/22 10:15 Temperature 36.5 C Temperature Source Temporal Artery Scan Pulse Rate 84 Pulse Rate from SpO2 Sensor Pulse Rhythm Respiratory Rate 20 Respiratory Effort / Characteristics Non-Labored Spontaneous Short of Breath Respiratory Depth Normal Normal Respiratory Pattern Regular Regular Blood Pressure 124/73 Blood Pressure Mean 90 Pulse Oximetry 98 97 Oxygen Delivery Method Room Air Room Air Sepsis Recent Fever Within 48 Hours No Sepsis New/Unexplained Change in Mental Status No Sepsis Action Taken by Nursing No Action Required 03/14/22 10:15 03/14/22 10:30 03/14/22 10:30 Temperature Temperature Source Pulse Rate 84 76 Pulse Rate from SpO2 Sensor 75 Pulse Rhythm Regular Respiratory Rate 12 Respiratory Effort / Characteristics Respiratory Depth Respiratory Pattern Blood Pressure 116/65 Blood Pressure Mean 82 Pulse Oximetry 97 95 Oxygen Delivery Method Room Air Sepsis Recent Fever Within 48 Hours Sepsis New/Unexplained Change in Mental Status Sepsis Action Taken by Nursing 03/14/22 11:00 03/14/22 11:00 03/14/22 11:39 Temperature Temperature Source Pulse Rate 73 Pulse Rate from SpO2 Sensor 71 91 H Pulse Rhythm Respiratory Rate 14 17 Respiratory Effort / Characteristics Respiratory Depth Respiratory Pattern Blood Pressure 111/60 Blood Pressure Mean 77 Pulse Oximetry 95 94 Oxygen Delivery Method Sepsis Recent Fever Within 48 Hours Sepsis New/Unexplained Change in Mental Status Sepsis Action Taken by Nursing 03/14/22 11:41 03/14/22 11:41 03/14/22 12:00 Temperature Temperature Source Pulse Rate Pulse Rate from SpO2 Sensor 84 Pulse Rhythm Respiratory Rate 19 Respiratory Effort / Characteristics Respiratory Depth Respiratory Pattern Blood Pressure 126/81 106/84 Blood Pressure Mean 96 91 Pulse Oximetry 96 Oxygen Delivery Method Sepsis Recent Fever Within 48 Hours Sepsis New/Unexplained Change in Mental Status Sepsis Action Taken by Nursing 03/14/22 12:00 03/14/22 12:30 03/14/22 12:31 Temperature Temperature Source Pulse Rate Pulse Rate from SpO2 Sensor 91 H Pulse Rhythm Respiratory Rate 13 16 Respiratory Effort / Characteristics Respiratory Depth Respiratory Pattern Blood Pressure 142/83 H Blood Pressure Mean 102 Pulse Oximetry 95 Oxygen Delivery Method Sepsis Recent Fever Within 48 Hours Sepsis New/Unexplained Change in Mental Status Sepsis Action Taken by Nursing 03/14/22 12:31 Temperature Temperature Source Pulse Rate Pulse Rate from SpO2 Sensor 80 Pulse Rhythm Respiratory Rate 14 Respiratory Effort / Characteristics Respiratory Depth Respiratory Pattern Blood Pressure Blood Pressure Mean Pulse Oximetry 97 Oxygen Delivery Method Sepsis Recent Fever Within 48 Hours Sepsis New/Unexplained Change in Mental Status Sepsis Action Taken by Nursing CONSTITUTIONAL/VITAL SIGNS: Reviewed / noted above. GENERAL: Non-toxic in appearance. INTEGUMENTARY: Warm, dry, and [place]. HEAD: Normocephalic. EYES: without scleral icterus or trauma. ENT/OROPHARYNX: clear and moist. LYMPHADENOPATHY/NECK: Is supple without lymphadenopathy or meningismus. RESPIRATORY: Clear to auscultation bilaterally. No increased work of breathing. CARDIOVASCULAR: Regular rate and rhythm. GI/ABDOMEN: Soft and nontender. No organomegaly or pulsatile mass. EXTREMITIES: Warm and well perfused. Bilateral pedal edema, right greater than left. BACK: No CVA tenderness. NEUROLOGICAL: Intact without focal deficits. PSYCHIATRIC: normal affect. MUSCULOSKELETAL: Normally developed with good muscle tone. TRIAGE NURSING DOCUMENTATION REVIEWED. Course Administered Medications Heparin Sodium/Dextrose (Heparin Sodium/Dextrose) 25,000 units in 500 mls @ 24 mls/hr IV .[id number] [facility]; Protocol Stop: 04/13/22 12:44 Last Admin: 03/14/22 12:44 Dose: 1,200 units/hr, 24 mls/hr Documented By: ED Co-signed By: ALVERTO Discontinued Medications Heparin Sodium (Porcine) (Heparin Sod (Porcine) 1000 Unit/Ml) 5,000 units IV NOW ONE Stop: 03/14/22 12:37 Last Admin: 03/14/22 12:43 Dose: 5,000 units Documented By: ED Co-signed By: ALVERTO Sodium Chloride (Nss) 500 mls @ 999 mls/hr IV .Q31M STA Stop: 03/14/22 10:45 Last Infusion: 03/14/22 11:05 Dose: 0 mls/hr Documented By: Admin: 03/14/22 10:29 Dose: 999 mls/hr Documented By: ED Ioversol (Optiray 320 500ml) 115 ml IV ONCE ONE Stop: 03/14/22 11:39 Last Admin: 03/14/22 11:39 Dose: 115 ml Documented By: NDF Medical Decision Making Differential Diagnosis The differential was considered includes acute myocardial infarction, acute coronary syndrome, myocarditis, pericarditis, pericardial effusions /tamponad, esophageal perforation, pulmonary embolism, pneumonia, pneumothorax, cardiomyo maribell, congestive heart, anemia , COPD/asthma exacerbation. Medical Records Attestation: I reviewed the patient's medical records. Home Medications Current Medication List: was personally reviewed by me Laboratory Data Attestation: I reviewed the patient's lab results. Result diagrams: 03/14/22 10:15 03/14/22 10:15 Lab Results 03/14/22 03/14/22 03/14/22 Range/Units 10:15 10:15 10:15 WBC 5.49 (4.8-10.8) K/ul RBC 3.30 L (4.63-6.08) M/uL Hgb 10.2 L (14.0-18.0) g/dl Hct 31.1 L (40.1-51.0) % MCV 94.2 (80.0-100.0) fL MCH 30.9 (25.0-34.0) pg MCHC 32.8 (32.0-36.0) g/dL RDW Std Deviation 47.0 H (36.4-46.3) fL RDW Coeff of [place] 13.8 (11.5-14.5) % Plt Count 361 (130-400) K/uL MPV 9.7 (9.4-12.4) fL Immature Gran % (Auto) 0.4 % Neut % (Auto) 55.1 % Lymph % (Auto) 20.8 % [place] % (Auto) 14.2 % Eos % (Auto) 8.6 % Baso % (Auto) 0.9 % Neut # (Auto) 3.03 (1.4-6.5) K/uL Lymph # (Auto) 1.14 L (1.2-3.4) K/uL [place] # (Auto) 0.78 (0.24-0.82) K/uL Eos # (Auto) 0.47 (0-0.50) K/uL Baso # (Auto) 0.05 (0-0.2) K/uL Immature Gran # (Auto) 0.02 (0.00-0.02) K/uL PT 10.3 (9.0-12.0) Seconds INR 1.0 (0.9-1.1) APTT 29.9 (21.0-31.0) Seconds PTT Ratio 1.1 Sodium 138 (136-145) mmol/L Potassium 4.2 (3.5-5.1) mmol/L Chloride 103 (98-107) mmol/L Carbon Dioxide 30 (21-32) mmol/L Anion Gap 5 (3-11) BUN 20 (6-23) mg/dl Creatinine 1.38 (0.6-1.4) mg/dl Est Cr Clr Drug Dosing 50.8 ml/min Est GFR ( Amer) 62.6 ml/min Est GFR (Non-Af Amer) 54.0 ml/min BUN/Creatinine Ratio 14.5 (10-20) Glucose 123 H (70-99(Fasting)) mg/dl Calcium 8.8 (8.5-10.1) mg/dl Total Bilirubin 0.3 (0.2-1.0) mg/dl AST 15 (13-39) U/L ALT 9 (7-52) U/L Alkaline Phosphatase 62 (34-104) U/L Troponin I High Sens 3.1 (0-20) pg/ml Total Protein 6.3 (6.0-8.3) gm/dl Albumin 3.4 (3.4-5.0) gm/dl Globulin 2.9 (2.5-4.0) gm/dl Albumin/Globulin Ratio 1.2 (0.9-2) SARS-CoV-2, RNA, NAAT (NEGATIVE) 03/14/22 Range/Units 10:35 WBC (4.8-10.8) K/ul RBC (4.63-6.08) M/uL Hgb (14.0-18.0) g/dl Hct (40.1-51.0) % MCV (80.0-100.0) fL MCH (25.0-34.0) pg MCHC (32.0-36.0) g/dL RDW Std Deviation (36.4-46.3) fL RDW Coeff of [place] (11.5-14.5) % Plt Count (130-400) K/uL MPV (9.4-12.4) fL Immature Gran % (Auto) % Neut % (Auto) % Lymph % (Auto) % [place] % (Auto) % Eos % (Auto) % Baso % (Auto) % Neut # (Auto) (1.4-6.5) K/uL Lymph # (Auto) (1.2-3.4) K/uL [place] # (Auto) (0.24-0.82) K/uL Eos # (Auto) (0-0.50) K/uL Baso # (Auto) (0-0.2) K/uL Immature Gran # (Auto) (0.00-0.02) K/uL PT (9.0-12.0) Seconds INR (0.9-1.1) APTT (21.0-31.0) Seconds PTT Ratio Sodium (136-145) mmol/L Potassium (3.5-5.1) mmol/L Chloride (98-107) mmol/L Carbon Dioxide (21-32) mmol/L Anion Gap (3-11) BUN (6-23) mg/dl Creatinine (0.6-1.4) mg/dl Est Cr Clr Drug Dosing ml/min Est GFR ( Amer) ml/min Est GFR (Non-Af Amer) ml/min BUN/Creatinine Ratio (10-20) Glucose (70-99(Fasting)) mg/dl Calcium (8.5-10.1) mg/dl Total Bilirubin (0.2-1.0) mg/dl AST (13-39) U/L ALT (7-52) U/L Alkaline Phosphatase (34-104) U/L Troponin I High Sens (0-20) pg/ml Total Protein (6.0-8.3) gm/dl Albumin (3.4-5.0) gm/dl Globulin (2.5-4.0) gm/dl Albumin/Globulin Ratio (0.9-2) SARS-CoV-2, RNA, NAAT NEGATIVE (NEGATIVE) Imaging Data Radiologist's Impression: Chest CTA 03/14/22 10:15 CT angio chest PE protocol CT DOSE: 522.00 mGycm HISTORY: 61 years-old Male with Chest Pain, eval for PE. Acute chest pain with shortness of breath TECHNIQUE: Multiple CTA images of the chest were obtained after the intravenous administration of 115 ml Optiray. Coronal and sagittal MIPS were obtained from the axial data set and were submitted for review. All measurements were obtained according to NASCET criteria. A dose lowering technique was utilized adhering to the principles of ALARA. COMPARISON: Chest CT 07/26/2021 FINDINGS: CTA: The heart is mildly enlarged. There is no pericardial effusion. There is no thoracic aortic aneurysm or dissection. There is patency of the imaged great vessels. Descending thoracic aortic tortuosity. Respiratory motion artifact limits evaluation of the pulmonary arterial tree. Lobar, segmental and subsegmental pulmonary emboli are present within the left upper lobe with segmental and subsegmental pulmonary emboli within the superior segment of the left lower lobe. No evidence of right heart strain or pulmonary embolus. CT CHEST: No thyroid nodule identified. No lymphadenopathy. Moderate right hemidiaphragmatic elevation. No pneumothorax, pleural effusion or overt pulmonary edema. No pulmonary infarct. Right basilar consolidation suggestive of atelectasis/scarring. There are no suspicious pulmonary nodules or masses identified. The central airways appear patent. Mild bronchial wall thickening. There are 2 solid nodules present within the basal left lower lobe measuring up to 5 mm, unchanged. A few additional tiny low suspicion solid pulmonary nodules measuring up to 2 to 3 mm are also again noted. No acute process of the imaged upper abdomen. Unremarkable soft tissues. Degenerative changes of the spine and shoulders. Cervical spinal fusion h ardware. Subacute to chronic nondisplaced partially imaged fracture of the lateral right 10th rib. IMPRESSION: 1. Lobar, segmental and subsegmental pulmonary emboli of the left lung. 2. Moderate right hemidiaphragm elevation with right basilar atel ectasis/scarring. 3. No pulmonary infarct or pleural effusion. ACT 112: Negative or not required by law. The above report was generated using voice recognition software. It may contain grammatical, syntax or spelling errors. Electronically signed by: Jose E White M.D. 03/14/2022 11:55 AM ECG Data Attestation: I personally reviewed and interpreted this ECG as follows: Additional Comments: Twelve-lead EKG: Per my interpretation shows a normal sinus rhythm at a rate of 80. Left bundle branch block. No PVCs. Normal QTC. MDM Narrative 61-year-old male presents with an elevated D-dimer as an outpatient yesterday. Sent here for to rule out PE. EKG shows a sinus rhythm. CT of the chest shows lobar, segmental and subsegmental PEs on the left. CBC, chemistry panel was unremarkable. Troponin was negative. Patient was started on IV heparin. He will be seen by the hospitalist for further evaluation and care. He was also given some IV fluids. Impression & Plan Pulmonary emboli Discharge Plan Visit Data Chief Complaint: Shortness of Breath/Dyspnea Stated Complaint: SOB PANDOLPH REF ED Provider: Elie Solorzano Discharge Problem: Pulmonary emboli Patient Disposition: Being Evaluated by Hospitalist Forms Stand Alone Forms: My [facility] Prescriptions Prescriptions: No Action tamsulosin [Flomax] 0.4 mg capsule 0.4 mg PO DAILY Qty: 90 3RF diazepam 5 mg tablet 5 mg PO BID PRN (Reason: anxiety) Qty: 60 5RF cholecalciferol (vitamin D3) [Vitamin D3] 125 mcg (5,000 unit) tablet 125 mcg PO 2XWK Qty: 30 3RF Rx Instructions: TAKES TU & FRI. memantine [Namenda] 10 mg tablet 10 mg PO BID Qty: 180 3RF morphine [MS Contin] 30 mg tablet extended release 30 mg PO Q8H PRN (Reason: pain, severe) Qty: 90 0RF ondansetron 4 mg tablet,disintegrating 4 mg PO Q8H PRN (Reason: nausea and vomiting) 4 Days Qty: 20 2RF labetalol 100 mg tablet 100 mg PO BID Qty: 180 3RF doxazosin [Cardura] 8 mg tablet 4 mg PO QAM nitroglycerin 0.4 mg tablet, sublingual 0.4 mg sublingual Q5M PRN (Reason: chest pain) Qty: 25 3RF Rx Instructions: do not exceed 3 doses per episode prednisone 5 mg tablet 5 mg PO DAILY prednisone 1 mg tablet 1 mg PO DAILY gabapentin 100 mg Capsule 100 mg PO QAM omeprazole 20 mg Capsule,Delayed Release(Dr/Ec) 20 mg PO BID buspirone 15 mg tablet 15 mg PO BID Rx Instructions: PT STATES HE TAKES IT TWICE DAILY, MOST RECENT FILL LIST SAYS 4 TIMES DAILY Entresto 97-103 mg Tablet 1 tab PO BID multivitamin Tablet 1 tab PO QAM gabapentin 300 mg Capsule 300 mg PO TID Rx Instructions: TAKES IN THE AFTERNOON, DINNER TIME AND AT BEDTIME duloxetine [Cymbalta] 30 mg capsule,delayed release(DR/EC) 30 mg PO HS spironolactone [Aldactone] 25 mg Tablet 25 mg PO QAM ferrous sulfate 325 mg (65 mg iron) Tablet 325 mg PO QAM ashwagandha root extract 300 mg Capsule 300 mg PO HS morphine 15 mg tablet 30 mg PO .8 X DAILY PER PT PRN (Reason: pain) vancomycin 125 mg capsule 125 mg PO QID 9 Days Qty: 36 0RF amoxicillin 500 mg tablet 2,000 mg PO DIRECTED PRN (Reason: 1 HOUR PRIOR TO DENTAL WORK.) Referrals Referrals: Giuseppe Romero MD [Primary Care Provider] -
[2022-03-14 10:42] LABS: Basophils # (auto) 0.05 K/uL (0-0.2); Basophils % (auto) 0.9 %; Eosinophils # (auto) 0.47 K/uL (0-0.50); Eosinophils % (auto) 8.6 %; Hematocrit (blood only) 31.1 % (40.1-51.0); Hemoglobin 10.2 g/dl (14.0-18.0); Immature Granulocytes # (auto) 0.02 K/uL (0.00-0.02); Immature Granulocytes % (auto) 0.4 %; Lymphocytes # (auto) 1.14 K/uL (1.2-3.4); Lymphocytes % (auto) 20.8 %; Mean Corpuscular Hemoglobin 30.9 pg (25.0-34.0); Mean Corpuscular Hgb Conc 32.8 g/dL (32.0-36.0); Mean Corpuscular Volume 94.2 fL (80.0-100.0); Mean Platelet Volume 9.7 fL (9.4-12.4); Monocytes # (auto) 0.78 K/uL (0.24-0.82); Monocytes % (auto) 14.2 %; Neutrophils # (auto) 3.03 K/uL (1.4-6.5); Neutrophils % (auto) 55.1 %; Platelet Count 361 K/uL (130-400); RDW Coefficient of Variation 13.8 % (11.5-14.5); White Blood Count 5.49 K/ul (4.8-10.8)
[2022-03-14 11:05] LABS: Albumin Globulin Ratio 1.2 (0.9-2); Albumin Level 3.4 gm/dl (3.4-5.0); BUN Creatinine Ratio 14.5 (10-20); Bilirubin,Total 0.3 mg/dl (0.2-1.0); Calcium 8.8 mg/dl (8.5-10.1); Creatinine Clr Calc Pharmacy 50.8 ml/min; Est GFR (African American) 62.6 ml/min; Globulin 2.9 gm/dl (2.5-4.0); Potassium 4.2 mmol/L (3.5-5.1); Total Protein 6.3 gm/dl (6.0-8.3)
[2022-03-14 11:08] LABS: Troponin I High Sensitivity 3.1 pg/ml (0-20)
[2022-03-14] MEDS ORDERED: OPTIRAY 320 500ml IV ONE (11:38)
--- NOTE | 2022-03-14 11:56 | CT Scan Report ---
CT angio chest PE protocol CT DOSE: 522.00 mGycm HISTORY: 61 years-old Male with Chest Pain, eval for PE. Acute chest pain with shortness of breath TECHNIQUE: Multiple CTA images of the chest were obtained after the intravenous administration of 115 ml Optiray. Coronal and sagittal MIPS were obtained from the axial data set and were submitted for review. All measurements were obtained according to NASCET criteria. A dose lowering technique was u tilized adhering to the principles of ALARA. COMPARISON: Chest CT 07/26/2021 FINDINGS: CTA: The heart is mildly enlarged. There is no pericardial effusion. There is no thoracic aortic aneurysm or dissection. There is patency of the imaged great vessels. Descending thoracic aortic tortuosity. R espiratory motion artifact limits evaluation of the pulmonary arterial tree. Lobar, segmental and sub segmental pulmonary emboli are present within the left upper lobe with segmental and subsegmental pul monary emboli within the superior segment of the left lower lobe. No evidence of right heart strain o r pulmonary embolus. CT CHEST: No thyroid nodule identified. No lymphadenopathy. Moderate right hemidiaphragmatic elevation. No pneu mothorax, pleural effusion or overt pulmonary edema. No pulmonary infarct. Right basilar consolidatio n suggestive of atelectasis/scarring. There are no suspicious pulmonary nodules or masses identified. The central airways appear patent. Mild bronchial wall thickening. There are 2 solid nodules present within the basal left lower lobe measuring up to 5 mm, unchanged. A few additional tiny low suspicio n solid pulmonary nodules measuring up to 2 to 3 mm are also again noted. No acute process of the imaged upper abdomen. Unremarkable soft tissues. Degenerative changes of the spine and shoulders. Cervical spinal fusion hardware. Subacute to chronic nondisplaced partially imag ed fracture of the lateral right 10th rib. IMPRESSION: 1. Lobar, segmental and subsegmental pulmonary emboli of the left lung. 2. Moderate right hemidiaphragm elevation with right basilar atelectasis/scarring. 3. No pulmonary infarct or pleural effusion. ACT 112: Negative or not required by law. The above report was generated using voice recognition software. It may contain grammatical, syntax o r spelling errors. Electronically signed by: Jose E White M.D. 03/14/2022 11:55 AM
[2022-03-14] MEDS ORDERED: Heparin IV Adult Wt-Based Standard WITH Bolus Protocol IV STA (12:21)
--- NOTE | 2022-03-14 12:31 | Electrocardiogram Report ---
Test Reason : Blood Pressure : / mmHG Vent. Rate : 080 BPM Atrial Rate : 080 BPM P-R Int : 198 ms QRS Dur : 144 ms QT Int : 402 ms P-R-T Axes : 052 -37 041 degrees QTc Int : 463 ms Normal sinus rhythm Left axis deviation Left bundle branch block Abnormal ECG When compared with ECG of 01-MAR-2022 13:11, No significant change Confirmed by Jose G Coe ([id number]) on 03/14/2022 12:31:00 PM Referred By: Giuseppe Romero Confirmed By:Jose G Coe
[2022-03-14] MEDS ORDERED: HEPARIN SOD (PORCINE) 1000 UNIT/ML IV ONE ×2 (12:36)
[2022-03-14] MEDS: HEPARIN SODIUM/DEXTROSE 25,000 UNITS/500 ML BAG IV SCH (12:44)
--- NOTE | 2022-03-14 12:50 | History & Physical Report ---
Date of Service March 14, 2022 Assessment & Plan (1) Pulmonary emboli: Plan: -Admit to med/tele -Patient is currently afebrile, hemodynamically stable, and stable on RA -Patient found to have lobar, segmental, and subsegmental PE's in the left lung without signs of infarct or pleural effusion -High sensitivity troponin noted to be 3.1, will order BNP now and follow up -Started on heparin in the ED, continue for now, can transition to an oral anticoagulant prior to discharge -Venous Doppler of the RLE is currently pending, will review when resulted; if negative will obtain doppler of the left lower extremity as it too is enematous -Patient not currently on anticoagulation prior to arrival, stopped taking his aspirin previously when told to on follow-up after his hip replacement -Will obtain TTE, monitor for arrhythmias on tele, continuous pulse oximetry -AM CBC, BMP (2) C. difficile diarrhea: Plan: -Recently discharged on 03/07/22 with prescription of oral Vanc, today is his last day of treatment -No leukocytosis or fevers -Will order PO vancomycin to complete therapy, continue to monitor for diarrhea, to be completed on 03/16/22 (3) Hypertension: Plan: -Hemodynamically stable, continue labetalol (4) Chronic systolic heart failure: Plan: -Has significant lower extremity edema on exam -Will follow up on BNP and TTE when complete -Continue spironolactone, and Entresto (5) Alcohol dependence in early full remission: Plan: -Continue Buspar (6) Rheumatoid arthritis: Plan: -Continue Prednisone (7) GERD (gastroesophageal reflux disease): Plan: -Continue Omeprazole (8) Back pain: Plan: -Continue Gabapentin and PO morphine, (9) Anxiety: Plan: -Continue cymbalta and prn diazepam -Continue Memantine for memory issues Plan The patient was discussed with Dr. Wright at the time of the admission History of Present Illness Chief Complaint: Shortness of breath Primary Care Provider: Giuseppe Romero MD Aditya is a 61 year old male with a PMH significant for Recent C.diff infection, RA on chronic prednisone treatment, HTN, CAD, non-ischemic cardiomyop athy, HFpEF (LVEF of 60-65% as of 01/15/22) , chronic LBBB, alcohol dependence, GERD, S/P right hip replacement on 10/07/[address] Cary, chronic pain from cervical and lumbar spinal stenosis, and CKD who presented to the [facility] on 03/14/22 at the recommendation of his PCP for SOB and elevated D-dimer. Per chart review, the patient was recently admitted to [facility] from 03/01/22-03/07/22 for C. diff colitis, NAHUN, and hyperkalemia. His C.diff colitis was thought to be caused by recent antibiotic use (Keflex) for cellulitis of the left forearm, he was treated with oral Vancomycin and discharged with a plan to complete 14 days of treatment. His NAHUN was thought to be due to dehydration, it resolved after holding antihypertensives and IV fluids. His hyperkalemia was thought to be due to his NAHUN, potassium supplements, and Spironolactone, it resolved after holding potassium supplements and spironolactone. The patient has been hospitalized multiple times over the past year for a variety of issues including appendicitis S/P laparoscopic appendectomy at [facility] in June of this year, S/P right total hip replacement in September of this year, both of which were without reported complications. On discharge from his hospitalization for his hip replacement he was started on Aspirin for DVT PPX. In November of this year the patient was seen in the ED for chest pain but cardiac workup was negative. During that ED visit the patient under went BL LE venous dopplers, the right leg was negative for DVT but did show a complex fluid collection within the right popliteal fossa suggestive of a popliteal cyst. The patient was seen in his PCP's office yesterday for follow-up and was noted to be experiencing Dyspnea, labs were obtained and he was found to have a D-dimer of 4660, he was instructed to go to the ED. In the ED the patient was found to be afebrile, hemodynamically stable, and stable on RA. Labs were remarkable for WBC WNL, stable Hgb, stable renal function/electrolytes, high sensitivity troponin of 3.1. CTA of the chest showed "Lobar, segmental and subsegmental pulmonary emboli of the left lung. Moderate right hemidiaphragm elevation with right basilar atelectasis/scarring. No pulmonary infarct or pleural effusion.". While the patient was found to be stable, there were concerns for his multiple hospitalizations over the past year and we were asked to admit the patient for continued workup of his PE's. At the time of the exam the patient was resting comfortably in bed in no acute distress. He states that since discharge his diarrhea has resolved, he still has approximately 12 caps of vancomycin to finish at home. When asked, he has been experiencing SOB and chest tightness for the last 3 months, but they have been worse this week. He denies recent fevers, chills, cough, dizziness, lightheadedness, abdominal pain, and recent falls. He has noted some wheezing over this time as well and does not have breathing treatments at home. He has been experiencing increased BL lower extremity swelling since discharge on 03/07, he legs currently feel tight and mildly painful. He denies recent dysuria, hematuria, and falls. Allergies Allergy/AdvReac Type Severity Reaction Status Date / Time No Known Allergies Allergy Verified 03/13/22 10:54 Home Medications Medication Instructions Recorded Confirmed Type gabapentin 100 mg capsule 100 mg PO QAM 03/24/18 03/13/22 History omeprazole 20 mg capsule,delayed 20 mg PO BID 03/24/18 03/14/22 History release sacubitril 97 mg-valsartan 103 mg 1 tab PO BID 10/20/19 03/14/22 History tablet (Entresto) multivitamin 1 tab PO QAM 01/19/20 03/14/22 History duloxetine 30 mg capsule,delayed 30 mg PO HS 06/28/20 03/14/22 History release (Cymbalta) gabapentin 300 mg capsule 300 mg PO TID 06/28/20 03/14/22 History buspirone 15 mg tablet 15 mg PO BID 07/04/20 03/14/22 History ashwagandha root extract 300 mg 300 mg PO HS 05/30/21 03/14/22 History capsule ferrous sulfate 325 mg (65 mg 325 mg PO QAM 05/30/21 03/14/22 History iron) tablet spironolactone 25 mg tablet 25 mg PO QAM 05/30/21 03/14/22 History (Aldactone) ondansetron 4 mg disintegrating 4 mg PO Q8H PRN nausea and 07/09/21 03/14/22 Rx tablet vomiting 4 days #20 tabs amoxicillin 500 mg tablet 2,000 mg PO DIRECTED PRN 1 HOUR 12/20/21 03/14/22 History PRIOR TO DENTAL WORK. doxazosin 8 mg tablet (Cardura) 4 mg PO QAM 01/01/22 03/14/22 History labetalol 100 mg tablet 100 mg PO BID #180 tabs 01/01/22 03/14/22 Rx nitroglycerin 0.4 mg sublingual 0.4 mg sublingual Q5M PRN chest 01/01/22 03/14/22 Rx tablet pain #25 tabs tamsulosin 0.4 mg capsule (Flomax) 0.4 mg PO DAILY #90 caps 01/15/22 03/14/22 Rx diazepam 5 mg tablet 5 mg PO BID PRN anxiety #60 tabs 01/30/22 03/14/22 Rx cholecalciferol (vitamin D3) 125 125 mcg PO 2XWK #30 tabs 02/03/22 03/14/22 Rx mcg (5,000 unit) tablet (Vitamin D3) memantine 10 mg tablet (Namenda) 10 mg PO BID #180 tabs 02/20/22 03/14/22 Rx morphine 30 mg tablet,extended 30 mg PO Q8H PRN pain, severe #90 02/25/22 03/14/22 Rx release (MS Contin) tabs morphine 15 mg immediate release 30 mg PO .8 X DAILY PER PT PRN pain 03/01/22 03/14/22 History tablet vancomycin 125 mg capsule 125 mg PO QID 9 days #36 caps 03/07/22 03/14/22 Rx prednisone 1 mg tablet 1 mg PO DAILY 03/13/22 03/14/22 History prednisone 5 mg tablet 5 mg PO DAILY 03/13/22 03/14/22 History Past Med/Surg History Medical History (Updated 03/14/22 @ 13:30 by Elie Jack PA-C) Acute hypotension Atypical chest pain Back pain Cardiomyopathy Nonischemic- resolved Cardiomyopathy, idiopathic Resolved -- LVEF 55% to 60% on 2 D echo 11/04/2019 Chest pain Chronic back pain hx pain pump -- worked for 7 days and then became infected and was removed. unable to reinsert. done in [place] "a long time ago" Chronic use of steroids Congestive heart failure GERD (gastroesophageal reflux disease) Well controlled and stable History of COVID-19 05/2021 asymptomatic. tested positive incidentally while being inpatient with appendicitis Kidney stones No recent issues Restrictive airway disease Per records > Pt denies Per 06/2020 PFTS: Moderate restrictive physiology with bronchodilator response and decreased DLCO Rheumatoid arthritis Steroid dependent- follows with rheum - Dr. Roman Sepsis associated hypotension Spinal stenosis of lumbar region at multiple levels Surgical History H/O cervical spine surgery 2 or 3 levels, full rom. History of colonoscopy History of laparoscopic appendectomy (06/24/21) Laparoscopic Appendectomy, Enterolysis, Repair of Umbilical Hernia - Juan Jones DO 06/24/2021 History of lithotripsy History of lumbar fusion X 2 WITH HARDWARE L2-L4 decompression-fusion 08/06/2020: Grade 1 view, Casey#2, ETT#8.0 atraumatic x 1. No issues per anesthesia postop progress note. History of total knee replacement 11/11/2019: SAB + PNB. No issues per anesthesia postop progress note. Status post knee replacement Status post right hip replacement (~09/2021) Family History Mother Family hx of colon cancer Father , age 65 Myocardial infarction Other No family history of adverse response to anesthesia No family history of bleeding disorder Denies family history of Ovarian cancer Prostate cancer Breast cancer Lung cancer Social History Smoking Status: Never smoker Second Hand Exposure: No; Hx Alcohol Use: Yes Alcohol type: hard liquor Hx Substance Use: No Preferred Language: Yakut Communication Ability: Effective Visual Impairment: Partially Limited Shank Carrier Required: No Beliefs That Will Affect Care: None marital status: Life Partner Current Living Situation: Spouse current occupational status: retired and disabled current occupation: [employer] How many Children do You have: 2 Other Information That Helps Us Care for You: No Feels Safe at Home: Yes Safety Concerns: Feels Safe At This Time Childhood Exposure to Second-Hand Smoke: No caffeine: Yes Dental Care, Regularly: Yes Physical Activity Frequency: Does not Exercise Seatbelt Use: sometimes Sunscreen Use: No Assistive Devices: Glasses Review of Systems 2 Review of Systems: Denies current fever, chills, headache, changes in vision, hearing, taste, and smell, cough, abdominal pain, nausea, vomiting, diarrhea, hematemesis, melena, dysuria, hematuria, and recent falls. All systems have been reviewed and are otherwise negative. Physical Exam Physical Exam: Physical Exam: General: In no acute distress, stated age, well-nourished, good hygiene HEENT: Normocephalic, atraumatic, no scleral icterus, pupils around round, symmetrical, and reactive to light, moist mucus membranes, trachea midline, no thyromegaly Chest/Pulm: No respiratory distress, symmetrical chest expansion, BL expiratory wheezing boted Cardiac: RRR, no murmurs noted Abdomen: Negative for ascites and bruising, normoactive bowel sounds, soft, non-tender to palpation throughout Musculoskeletal: Symmetrical and without signs of acute trauma, upper and lower extremities with full ROM, no atrophy, spasticity, or flaccidity Extremities: Radial, dorsalis pedis, and posterior tibial pulses are intact and symmetrical, 2+ pitting edema noted in the Bl lower extremities Skin: Warm, dry, no rashes , lesions, or scars noted Neuro: Alert and oriented to person, place, month, year, and president, no focal defects, CN II-XII tested and intact, no tremors noted Psych: No acute distress, calm and cooperative during the exam Results & Data Results & Data ([facility]) Vital Signs (Past 12 Hours) Vital Signs Temp Pulse Resp BP Pulse Ox O2 Del Method 03/14/22 11:41 19 96 03/14/22 11:41 126/81 03/14/22 11:39 17 94 03/14/22 11:00 73 14 95 03/14/22 11:00 111/60 03/14/22 10:30 76 12 95 03/14/22 10:30 116/65 03/14/22 10:15 84 97 Room Air 03/14/22 10:15 97 Room Air 03/14/22 09:59 36.5 C 84 20 124/73 98 Room Air Laboratory Results Abnormal lab results 03/14/22 03/14/22 Range/Units 10:15 10:15 RBC 3.30 L (4.63-6.08) M/uL Hgb 10.2 L (14.0-18.0) g/dl Hct 31.1 L (40.1-51.0) % RDW Std Deviation 47.0 H (36.4-46.3) fL Lymph # (Auto) 1.14 L (1.2-3.4) K/uL Glucose 123 H (70-99(Fasting)) mg/dl Diagnostic Findings Chest CTA 03/14/22 10:15 CT angio chest PE protocol CT DOSE: 522.00 mGycm HISTORY: 61 years-old Male with Chest Pain, eval for PE. Acute chest pain with shortness of breath TECHNIQUE: Multiple CTA images of the chest were obtained after the intravenous administration of 115 ml Optiray. Coronal and sagittal MIPS were obtained from the axial data set and were submitted for review. All measurements were obtained according to NASCET criteria. A dose lowering technique was utilized adhering to the principles of ALARA. COMPARISON: Chest CT 07/26/2021 FINDINGS: CTA: The heart is mildly enlarged. There is no pericardial effusion. There is no thoracic aortic aneurysm or dissection. There is patency of the imaged great vessels. Descending thoracic aortic tortuosity. Respiratory motion artifact limits evaluation of the pulmonary arterial tree. Lobar, segmental and subsegmental pulmonary emboli are present within the left upper lobe with segmental and subsegmental pulmonary emboli within the superior segment of the left lower lobe. No evidence of right heart strain or pulmonary embolus. CT CHEST: No thyroid nodule identified. No lymphadenopathy. Moderate right hemidiaphragmatic elevation. No pneumothorax, pleural effusion or overt pulmonary edema. No pulmonary infarct. Right basilar consolidation suggestive of atelectasis/scarring. There are no suspicious pulmonary nodules or masses identified. The central airways appear patent. Mild bronchial wall thickening. There are 2 solid nodules present within the basal left lower lobe measuring up to 5 mm, unchanged. A few additional tiny low suspicion solid pulmonary nodules measuring up to 2 to 3 mm are also again noted. No acute process of the imaged upper abdomen. Unremarkable soft tissues. Degenerative changes of the spine and shoulders. Cervical spinal fusion hardware. Subacute to chronic nondisplaced partially imaged fracture of the lateral right 10th rib. IMPRESSION: 1. Lobar, segmental and subsegmental pulmonary emboli of the left lung. 2. Moderate right hemidiaphragm elevation with right basilar atelectasis/scarring. 3. No pulmonary infarct or pleural effusion. ACT 112: Negative or not required by law. The above report was generated using voice recognition software. It may contain grammatical, syntax or spelling errors. Electronically signed by: Jose E White M.D. 03/14/2022 11:55 AM ECG Additional Comments: Normal sinus rhythm Left axis deviation Left bundle branch block Abnormal ECG When compared with ECG of 01-MAR-2022 13:11, No significant change Confirmed by Jose G Coe ([id number]) on 03/14/2022 12:31:00 PM Code Status & VTE Plan Code Status Full code VTE Prophylaxis Plan VTE Prophylaxis will be ordered: Yes PG Care Time/CCT Total # of Minutes Spent Total Time Spent with Patient: Total time spent is greater than 50% in coordination of care (as documented) at patient's floor/unit and/or counseling patient: Coding Level of Care Code Established Pt INT OBSERVATION CARE 50M LVL 2 Patient Type Established History Comprehensive Exam Comprehensive Medical Decision Making Moderate Complexity Diagnoses Pulmonary emboli I26.99 C. difficile diarrhea A04.72 Hypertension I10 Chronic systolic heart failure I50.22 Alcohol dependence in early full remission F10.21 Rheumatoid arthritis M06.9 Rheumatoid arthritis location: unspecified site Rheumatoid factor presence: unspecified presence GERD (gastroesophageal reflux disease) K21.9 Back pain M54.6; G89.29 Back pain laterality: unspecified Back pain location: thoracic back pain Chronicity: chronic Anxiety F41.9 (1) Rheumatoid arthritis Rheumatoid arthritis location: unspecified site Rheumatoid factor presence: unspecified presence Qualified Code(s): M06.9 - Rheumatoid arthritis, unspecified (2) Back pain Back pain laterality: unspecified Back pain location: thoracic back pain Chronicity: chronic Qualified Code(s): M54.6 - Pain in thoracic spine; G89.29 - Other chronic pain
[2022-03-14 13:08] LABS: Partial Thromboplastin Ratio 1.1; Partial Thromboplastin Time 29.9 Seconds (21.0-31.0); Prothrombin Time 10.3 Seconds (9.0-12.0)
--- NOTE | 2022-03-14 14:10 | Ultrasound Report ---
US venous doppler LE RT CLINICAL HISTORY: swelling TECHNIQUE: Right lower extremity real-time compression venous ultrasound with Color Doppler imaging. Utilizing real-time ultrasonic imaging multiple real time high-resolution ultrasonic images with comp ression and noncompression maneuvers of the deep venous system in addition to color doppler imaging w ere performed from the common femoral vein through the proximal calf veins. COMPARISON: None available at the time of this dictation. FINDINGS: Currently there is normal compressibility of the deep venous system from the common femoral vein thro ugh the proximal calf veins. Evaluation of 1 posterior tibial vein is limited but there is no sugges tion of deep venous thrombus. Impression: No evidence of deep venous thrombus. Limited evaluation of a posterior tibial vein. ACT 112: Negative or not required by law. Electronically signed by: Zack Connolly M.D. 03/14/2022 2:08 PM
[2022-03-14] MEDS ORDERED: diazePAM 5 MG TABLET PO PRN (14:15)
[2022-03-14] MEDS ORDERED: ALBUTEROL 0.5% NEB SOLN 2.5 MG/0.5 ML VIAL NEB PRN (14:15)
[2022-03-14] MEDS ORDERED: ACETAMINOPHEN 325 MG TAB PO PRN (14:15)
[2022-03-14] MEDS ORDERED: CHOLECALCIFEROL 5,000 UNITS 125 MCG TAB PO SCH (15:00)
[2022-03-14] MEDS ORDERED: FLUARIX QUADRIVALENT 0.5 ML SYR IM ONE (15:33)
[2022-03-14] MEDS: GABAPENTIN 300 MG CAP PO SCH ×2 (15:35→20:01)
--- NOTE | 2022-03-14 15:40 | XCELERA ---
[id number]
--- NOTE | 2022-03-14 16:44 | Ultrasound Report ---
ULTRASOUND LEFT LOWER EXTREMITY VENOUS CLINICAL HISTORY: Left lower extremity edema. Pulmonary embolus. COMPARISON STUDY: Bilateral lower extremity venous ultrasound dated 11/09/2020. TECHNIQUE: Real-time, grayscale, and color Doppler sonography of the deep veins of the left lower ext remity was performed from the inguinal crease to the calf. Compression and augmentation were utilized . FINDINGS: There is no sonographic evidence of deep venous thrombosis identified in the left lower ext remity. The common femoral, superficial femoral, and popliteal veins are patent and normally compress ible. The greater saphenous vein and the profunda femoris vein at the junction with the common femora l vein are clear. The visualized calf veins are patent. IMPRESSION: There is no sonographic evidence of deep venous thrombosis identified in the left lower e xtremity. ACT 112: Negative or not required by law. Electronically signed by: Mir Villalba M.D. 03/14/2022 4:43 PM
[2022-03-14] MEDS ORDERED: RASPBERRY SYRUP 5 ML UDP PO SCH (17:00)
[2022-03-14] MEDS ORDERED: VANCOMYCIN HCL 125 MG/2.5ML SOLN PO SCH (17:00)
[2022-03-14] MEDS: MoRPHine SULFATE CR 15 MG TABCR PO PRN (18:27)
[2022-03-14 18:51] LABS: Partial Thromboplastin Ratio 2.1
[2022-03-14 18:53] LABS: Partial Thromboplastin Time 58.3 Seconds (21.0-31.0)
[2022-03-14] MEDS ORDERED: MoRPHine SULFATE IR 15 MG TAB (IMMEDIATE RELEASE) PO PRN (19:50)
[2022-03-14] MEDS: busPIRone 15 MG TAB PO SCH (20:01)
[2022-03-14] MEDS: PANTOprazole 40 MG TAB PO SCH (20:01)
[2022-03-14] MEDS: VALSARTAN/SACUBITRIL 103/97MG TAB PO SCH (20:01)
[2022-03-14] MEDS: MEMANTINE HCL 10 MG TAB PO SCH (20:01)
[2022-03-14] MEDS: DULoxetine HCL 30 MG CAP PO SCH (20:01)
[2022-03-14] MEDS: LABETALOL HCL 100 MG TAB PO SCH (20:01)
[2022-03-14] MEDS: MoRPHine SULFATE IR 15 MG TAB (IMMEDIATE RELEASE) PO PRN (21:54)
[2022-03-15] MEDS ORDERED: ONDANSETRON 4 MG OD TAB ONE (00:21)
[2022-03-15] MEDS: ONDANSETRON 4 MG OD TAB PO PRN ×2 (00:24→19:19)
[2022-03-15] MEDS: VANCOMYCIN PO SCH ×5 (02:21→23:04)
[2022-03-15] MEDS: MoRPHine SULFATE CR 15 MG TABCR PO PRN ×3 (02:41→19:46)
[2022-03-15 07:06] LABS: Hematocrit (blood only) 28.7 % (40.1-51.0); Hemoglobin 9.5 g/dl (14.0-18.0); Mean Corpuscular Hemoglobin 30.8 pg (25.0-34.0); Mean Corpuscular Hgb Conc 33.1 g/dL (32.0-36.0); Mean Corpuscular Volume 93.2 fL (80.0-100.0); Mean Platelet Volume 9.9 fL (9.4-12.4); Platelet Count 333 K/uL (130-400); RDW Coefficient of Variation 13.8 % (11.5-14.5); RDW Standard Deviation 46.8 fL (36.4-46.3); Red Blood Count 3.08 M/uL (4.63-6.08); White Blood Count 4.37 K/ul (4.8-10.8)
[2022-03-15 07:18] LABS: Prothrombin Time 10.9 Seconds (9.0-12.0)
[2022-03-15 07:39] LABS: BUN Creatinine Ratio 10.5 (10-20); Calcium 8.6 mg/dl (8.5-10.1); Creatinine Clr Calc Pharmacy 56.1 ml/min; Est GFR (African American) 71.3 ml/min; Est GFR (Non-African American) 61.5 ml/min; Potassium 4.6 mmol/L (3.5-5.1)
[2022-03-15] MEDS: PANTOprazole 40 MG TAB PO SCH ×2 (08:44→20:14)
[2022-03-15] MEDS: SPIRONOLACTONE 25 MG TAB PO SCH (08:44)
[2022-03-15] MEDS: MULTIVITAMIN TAB PO SCH (08:44)
[2022-03-15] MEDS: busPIRone 15 MG TAB PO SCH ×2 (08:45→20:14)
[2022-03-15] MEDS: DOXAZosin MESYLATE 4 MG TAB PO SCH (08:45)
[2022-03-15] MEDS: TAMSULOSIN HCL 0.4 MG CAP PO SCH (08:45)
[2022-03-15] MEDS: LABETALOL HCL 100 MG TAB PO SCH ×2 (08:46→20:13)
[2022-03-15] MEDS: MEMANTINE HCL 10 MG TAB PO SCH ×2 (08:46→20:14)
[2022-03-15] MEDS: GABAPENTIN 100 MG CAP PO SCH (08:46)
[2022-03-15] MEDS: VALSARTAN/SACUBITRIL 103/97MG TAB PO SCH ×2 (08:47→20:14)
[2022-03-15] MEDS: FERROUS SULFATE 325 MG TAB PO SCH (08:47)
[2022-03-15] MEDS: MoRPHine SULFATE IR 15 MG TAB (IMMEDIATE RELEASE) PO PRN (08:56)
[2022-03-15] MEDS: HEPARIN SODIUM/DEXTROSE 25,000 UNITS/500 ML BAG IV SCH (09:46)
[2022-03-15 10:09] LABS: Partial Thromboplastin Ratio 2.7
[2022-03-15 10:20] LABS: Partial Thromboplastin Time 75.4 Seconds (21.0-31.0)
[2022-03-15] MEDS: GABAPENTIN 300 MG CAP PO SCH ×3 (11:47→20:14)
[2022-03-15 17:22] LABS: Partial Thromboplastin Ratio 2.3
[2022-03-15 17:36] LABS: Partial Thromboplastin Time 63.1 Seconds (21.0-31.0)
[2022-03-15] MEDS: DULoxetine HCL 30 MG CAP PO SCH (20:14)
[2022-03-16] MEDS: MoRPHine SULFATE IR 15 MG TAB (IMMEDIATE RELEASE) PO PRN (01:54)
[2022-03-16] MEDS: MoRPHine SULFATE CR 15 MG TABCR PO PRN ×2 (04:48→12:13)
[2022-03-16] MEDS: VANCOMYCIN PO SCH ×2 (05:01→12:10)
[2022-03-16] MEDS: HEPARIN SODIUM/DEXTROSE 25,000 UNITS/500 ML BAG IV SCH (06:18)
[2022-03-16 07:07] LABS: Hematocrit (blood only) 27.8 % (40.1-51.0); Hemoglobin 9.1 g/dl (14.0-18.0); Mean Corpuscular Hemoglobin 30.3 pg (25.0-34.0); Mean Corpuscular Hgb Conc 32.7 g/dL (32.0-36.0); Mean Corpuscular Volume 92.7 fL (80.0-100.0); Mean Platelet Volume 9.8 fL (9.4-12.4); Platelet Count 299 K/uL (130-400); RDW Coefficient of Variation 13.6 % (11.5-14.5); RDW Standard Deviation 46.3 fL (36.4-46.3); White Blood Count 5.13 K/ul (4.8-10.8)
[2022-03-16] MEDS: MULTIVITAMIN TAB PO SCH (07:21)
[2022-03-16] MEDS: SPIRONOLACTONE 25 MG TAB PO SCH (07:21)
[2022-03-16] MEDS: LABETALOL HCL 100 MG TAB PO SCH (07:22)
[2022-03-16] MEDS: VALSARTAN/SACUBITRIL 103/97MG TAB PO SCH (07:24)
[2022-03-16] MEDS: busPIRone 15 MG TAB PO SCH (07:24)
[2022-03-16] MEDS: PANTOprazole 40 MG TAB PO SCH (07:24)
[2022-03-16] MEDS: MEMANTINE HCL 10 MG TAB PO SCH (07:25)
[2022-03-16] MEDS: DOXAZosin MESYLATE 4 MG TAB PO SCH (07:25)
[2022-03-16] MEDS: GABAPENTIN 100 MG CAP PO SCH (07:25)
[2022-03-16] MEDS: FERROUS SULFATE 325 MG TAB PO SCH (07:26)
[2022-03-16] MEDS: TAMSULOSIN HCL 0.4 MG CAP PO SCH (07:26)
[2022-03-16 07:30] LABS: BUN Creatinine Ratio 13.3 (10-20); Calcium 8.4 mg/dl (8.5-10.1); Creatinine Clr Calc Pharmacy 61.6 ml/min; Est GFR (African American) 79.7 ml/min; Est GFR (Non-African American) 68.8 ml/min; Potassium 4.4 mmol/L (3.5-5.1)
[2022-03-16 07:49] LABS: Partial Thromboplastin Ratio 2.2; Prothrombin Time 10.7 Seconds (9.0-12.0)
[2022-03-16 07:58] LABS: Partial Thromboplastin Time 61.5 Seconds (21.0-31.0)
[2022-03-16] MEDS: GABAPENTIN 300 MG CAP PO SCH ×2 (12:09→16:06)
--- NOTE | 2022-03-16 14:37 | Hospitalist Progress Note ---
Date of Service March 16, 2022 Assessment & Plan (1) Pulmonary emboli: Plan: -Admit to med/tele -Patient is currently afebrile, hemodynamically stable, and stable on RA -Patient found to have lobar, segmental, and subsegmental PE's in the left lung without signs of infarct or pleural effusion -High sensitivity troponin noted to be 3.1, will order BNP now and follow up -Started on heparin in the ED, continue for now, can transition to an oral anticoagulant prior to discharge -Venous Doppler of the RLE is currently pending, will review when resulted; if negative will obtain doppler of the left lower extremity as it too is enematous -Patient not currently on anticoagulation prior to arrival, stopped taking his aspirin previously when told to on follow-up after his hip replacement -Will obtain TTE, monitor for arrhythmias on tele, continuous pulse oximetry -AM CBC, BMP (2) C. difficile diarrhea: Plan: -Recently discharged on 03/07/22 with prescription of oral Vanc, today is his last day of treatment -No leukocytosis or fevers -Will order PO vancomycin to complete therapy, continue to monitor for diarrhea, to be completed on 03/16/22 (3) Hypertension: Plan: -Hemodynamically stable, continue labetalol (4) Chronic systolic heart failure: Plan: -Has significant lower extremity edema on exam -Will follow up on BNP and TTE when complete -Continue spironolactone, and Entresto (5) Alcohol dependence in early full remission: Plan: -Continue Buspar (6) Rheumatoid arthritis: Plan: -Continue Prednisone (7) GERD (gastroesophageal reflux disease): Plan: -Continue Omeprazole (8) Back pain: Plan: -Continue Gabapentin and PO morphine, (9) Anxiety: Plan: -Continue cymbalta and prn diazepam -Continue Memantine for memory issues Plan The patient was discussed with Dr. Wright at the time of the admission Admission and Anticipated Discharge Date Admission Date: March 14, 2022 Results & Data Results & Data ([facility]) Vital Signs (Past 12 Hours) Vital Signs Temp Pulse Pulse Resp BP BP Pulse Ox 03/16/22 14:26 97.7 F 69 18 100/63 92 03/16/22 13:48 03/16/22 11:12 97.3 F L 67 18 90/58 L 91 10/23/22 07:11 65 03/16/22 06:50 98.1 F 75 16 100/65 91 O2 Del Method 03/16/22 14:26 Room Air 03/16/22 13:48 Room Air 03/16/22 11:12 Room Air 03/16/22 07:11 03/16/22 06:50 Room Air PG Care Time/CCT Total # of Minutes Spent Total Time Spent with Patient: Total time spent is greater than 50% in coordination of care (as documented) at patient's floor/unit and/or counseling patient: Coding Diagnoses Pulmonary emboli I26.99 C. difficile diarrhea A04.72 Hypertension I10 Chronic systolic heart failure I50.22 Alcohol dependence in early full remission F10.21 Rheumatoid arthritis M06.9 Rheumatoid arthritis location: unspecified site Rheumatoid factor presence: unspecified presence GERD (gastroesophageal reflux disease) K21.9 Back pain M54.6; G89.29 Back pain location: thoracic back pain Chronicity: chronic Back pain laterality: unspecified Anxiety F41.9 (1) Rheumatoid arthritis Rheumatoid arthritis location: unspecified site Rheumatoid factor presence: unspecified presence Qualified Code(s): M06.9 - Rheumatoid arthritis, unspecified (2) Back pain Back pain location: thoracic back pain Chronicity: chronic Back pain laterality: unspecified Qualified Code(s): M54.6 - Pain in thoracic spine; G89.29 - Other chronic pain
[2022-03-16] MEDS ORDERED: APIXABAN 5 MG TABLET PO SCH (16:00)
--- NOTE | 2022-03-16 16:12 | Discharge Summary ---
Date of Service March 16, 2022 Admission HPI Per Admitting Provider Aditya is a 61 year old male with a PMH significant for Recent C.diff infection, RA on chronic prednisone treatment, HTN, CAD, non-ischemic cardiomyopathy, HFpEF (LVEF of 60-65% as of 01/15/22) , chronic LBBB, alcohol dependence, GERD, S/P right hip replacement on 10/07/[address] Cary, chronic pain from cervical and lumbar spinal stenosis, and CKD who presented to the [facility] on 03/14/22 at the recommendation of his PCP for SOB and elevated D-dimer. Per chart review, the patient was recently admitted to [facility] from 03/01/22-03/07/22 for C. diff colitis, NAHUN, and hyperkalemia. His C.diff colitis was thought to be caused by recent antibiotic use (Keflex) for cellulitis of the left forearm, he was treated with oral Vancomycin and discharged with a plan to complete 14 days of treatment. His NAHUN was thought to be due to dehydration, it resolved after holding antihypertensives and IV fluids. His hyperkalemia was thought to be due to his NAHUN, potassium supplements, and Spironolactone, it resolved after holding potassium supplements and spironolactone. The patient has been hospitalized multiple times over the past year for a variety of issues including appendicitis S/P laparoscopic appendectomy at [facility] in June of this year, S/P right total hip replacement in September of this year, both of which were without reported complications. On discharge from his hospitalization for his hip replacement he was started on Aspirin for DVT PPX. In November of this year the patient was seen in the ED for chest pain but cardiac workup was negative. During that ED visit the patient under went BL LE venous dopplers, the right leg was negative for DVT but did show a complex fluid collection within the right popliteal fossa suggestive of a popliteal cyst. The patient was seen in his PCP's office yesterday for follow-up and was noted to be experiencing Dyspnea, labs were obtained and he was found to have a D-dimer of 4660, he was instructed to go to the ED. In the ED the patient was found to be afebrile, hemodynamically stable, and stable on RA. Labs were remarkable for WBC WNL, stable Hgb, stable renal function/electrolytes, high sensitivity troponin of 3.1. CTA of the chest showed "Lobar, segmental and subsegmental pulmonary emboli of the left lung. Moderate right hemidiaphragm elevation with right basilar atelectasis/scarring. No pulmonary infarct or pleural effusion.". While the patient was found to be stable, there were concerns for his multiple hospitalizations over the past year and we were asked to admit the patient for continued workup of his PE's. At the time of the exam the patient was resting comfortably in bed in no acute distress. He states that since discharge his diarrhea has resolved, he still has approximately 12 caps of vancomycin to finish at home. When asked, he has been experiencing SOB and chest tightness for the last 3 months, but they have been worse this week. He denies recent fevers, chills, cough, dizziness, lightheadedness, abdominal pain, and recent falls. He has noted some wheezing over this time as well and does not have breathing treatments at home. He has been experiencing increased BL lower extremity swelling since discharge on 03/07, he legs currently feel tight and mildly painful. He denies recent dysuria, hematuria, and falls. Principal Diagnosis pulmonary embolism Discharge Exam The patient appeared stable Vital signs as documented. Lungs are clear to auscultation and appear unlabored Cardiac exam, Rhythm is regular.. No murmurs, rubs or gallops. Abdominal exam reveals normal bowel sounds, soft non tender, no masses Extremities are nonedematous and both pedal pulses are normal. Discharge Data Allergies Allergy/AdvReac Type Severity Reaction Status Date / Time No Known Allergies Allergy Verified 03/13/22 10:54 Consultations 03/14/22 12:52 ED Decision to Admit Stat Ordered Studies 03/14/22 10:15 CT angio chest PE protocol Stat 03/14/22 11:53 US venous doppler LE RT Stat 03/14/22 15:52 US venous doppler LE LT Routine Hospital Course (1) Pulmonary emboli: hemodynamically stable, and stable on RA -Patient found to have lobar, segmental, and subsegmental PE's in the left lung without signs of infarct or pleural effusion -Started on heparin in the ED, continue for now, can transition to an oral anticoagulant prior to discharge ->Eliquis -Venous Doppler of the b/l LE are negative Patient not currently on anticoagulation prior to arrival, stopped taking his aspirin previously when told to on follow-up after his hip replacement TTE did show some mild systolic septal flattening suggesting mild RV pressure overload, subsequently was kept on heparin until 03/16/22 (2) C. difficile diarrhea: -Recently discharged on 03/07/22 with prescription of oral Vanc, -No leukocytosis or fevers -Will order PO vancomycin to complete therapy, continue to monitor for diarrhea, (3) Hypertension: -Hemodynamically stable, continue labetalol (4) Chronic systolic heart failure: -is hemodynamically stable -Continue spironolactone, and Entresto (5) Alcohol dependence in early full remission: -Continue Buspar (6) Rheumatoid arthritis: -Continue Prednisone (7) GERD (gastroesophageal reflux disease): -Continue Omeprazole (8) Back pain: -Continue Gabapentin and PO morphine, (9) Anxiety: -Continue cymbalta and prn diazepam -Continue Memantine for memory issues Total Time Total Time Spent Total Time Spent (In Minutes): It required greater than 30 minutes to prepare this patient for discharge Discharge Plan Discharge Items Patient Disposition: Home - Self-Care Reason For Visit: SOB Discharge Diagnosis: pulmonary embolism Activity: Per Instructions section Activity Comment: slowly increase activity Non-emergency contact: Primary Care Provider Call non-emergency contact if: your symptoms worsen Follow-up/Referrals: Giuseppe Romero MD [Primary Care Provider] - Diet: Low Sodium (2gm) Addtl Attending Provider Instructions: Medication Instructions: Your condition is typically treated with an anticoagulant. Anticoagulants will thin your blood to help prevent new clots. * You should take her medication exactly as directed. * Never skip a dose. * Never take a double dose. If you miss a dose, take it as soon as you remember. Call your Primary Care doctor if you experience any of the following: * Swelling or Pain in your leg * Sudden, continuous pain deep in a muscle * Pain that worsens when you are active or when you stand still for a long time * Chest Pain * Sudden Shortness of Breath * Rapid or pounding heart beat * Fainting * Dizziness * Cough with blood or bloody sputum * Sweating more than normal * Bruises * Heavy or uncontrolled bleeding * Blood in your urine, stool or vomit * Black or tarry stools Caring for Your Self at Home: * Avoid sitting, standing or lying down for long periods without moving your legs and feet * When traveling by car, stop to get out and move around at least once every 3 hours * On long airplane, train or bus rides, get up and move around when possible * If you can't get up, wiggle your toes and tighten your calves to keep your blood moving Follow Up: It is important for you to keep your follow up appointments with your medical provider. Pending Studies at Discharge: No Stand-Alone Forms: My [facility], Smoking Cessation Medications and DC Order Prescriptions: New Eliquis 5 mg tablet 5 mg PO BID Qty: 60 5RF Rx Instructions: pt should take 10mg bid for first week then always 5 bid after that cancel xarelto RX Continued tamsulosin [Flomax] 0.4 mg capsule 0.4 mg PO DAILY Qty: 90 3RF diazepam 5 mg tablet 5 mg PO BID PRN (Reason: anxiety) Qty: 60 5RF cholecalciferol (vitamin D3) [Vitamin D3] 125 mcg (5,000 unit) tablet 125 mcg PO 2XWK Qty: 30 3RF Rx Instructions: TAKES TUES & FRI. memantine [Namenda] 10 mg tablet 10 mg PO BID Qty: 180 3RF morphine [MS Contin] 30 mg tablet extended release 30 mg PO Q8H PRN (Reason: pain, severe) Qty: 90 0RF ondansetron 4 mg tablet,disintegrating 4 mg PO Q8H PRN (Reason: nausea and vomiting) 4 Days Qty: 20 2RF labetalol 100 mg tablet 100 mg PO BID Qty: 180 3RF doxazosin [Cardura] 8 mg tablet 4 mg PO QAM nitroglycerin 0.4 mg tablet, sublingual 0.4 mg sublingual Q5M PRN (Reason: chest pain) Qty: 25 3RF Rx Instructions: do not exceed 3 doses per episode gabapentin 100 mg Capsule 100 mg PO QAM omeprazole 20 mg Capsule,Delayed Release(Dr/Ec) 20 mg PO BID buspirone 15 mg tablet 15 mg PO BID Rx Instructions: PT STATES HE TAKES IT TWICE DAILY, MOST RECENT FILL LIST SAYS 4 TIMES DAILY Entresto 97-103 mg Tablet 1 tab PO BID multivitamin Tablet 1 tab PO QAM gabapentin 300 mg Capsule 300 mg PO TID Rx Instructions: TAKES IN THE AFTERNOON, DINNER TIME AND AT BEDTIME duloxetine [Cymbalta] 30 mg capsule,delayed release(DR/EC) 30 mg PO HS spironolactone [Aldactone] 25 mg Tablet 25 mg PO QAM ferrous sulfate 325 mg (65 mg iron) Tablet 325 mg PO QAM ashwagandha root extract 300 mg Capsule 300 mg PO HS morphine 15 mg tablet 30 mg PO .8 X DAILY PER PT PRN (Reason: pain) amoxicillin 500 mg tablet 2,000 mg PO DIRECTED PRN (Reason: 1 HOUR PRIOR TO DENTAL WORK.) Discontinued prednisone 5 mg tablet 5 mg PO DAILY prednisone 1 mg tablet 1 mg PO DAILY vancomycin 125 mg capsule 125 mg PO QID 9 Days Qty: 36 0RF Discharge Orders: Discharge Order (Routine); Ordered 03/16/22 Ordered By: Aditya Tavares Admission Data Admit Date/Time: 03/14/22 12:50 Attending Provider: Aditya Tavares Admit Provider: Everton Wright Primary Care Provider: Giuseppe Romero Other Providers: Everton Wright Coding Level of Care Code D/C DAY MANAGEMENT >30 MINS Diagnoses Pulmonary emboli I26.99 C. difficile diarrhea A04.72 Hypertension I10 Chronic systolic heart failure I50.22 Alcohol dependence in early full remission F10.21 Rheumatoid arthritis M06.9 Rheumatoid arthritis location: unspecified site Rheumatoid factor presence: unspecified presence GERD (gastroesophageal reflux disease) K21.9 Back pain M54.6; G89.29 Back pain location: thoracic back pain Chronicity: chronic Back pain laterality: unspecified Anxiety F41.9
[2022-03-17] MEDS ORDERED: APIXABAN 5 MG TABLET PO SCH (09:00)
== END 2022-03-16 16:49 | disposition home or self-care (01) ==
LOC: ED 09:48 → 2W 09:48 → SUATTDRO 12:50 → 2W 13:31

== ENCOUNTER 2022-04-22 14:30 | Inpatient (IN) ==
[2022-04-22] MEDS ORDERED: ONDANSETRON INJ 2 MG/ML 2 ML VIAL IV STA (15:53)
[2022-04-22] MEDS ORDERED: MoRPHine SULFATE 10 MG/ML CARP/VIAL IV STA (15:53)
[2022-04-22] MEDS ORDERED: MoRPHine SULFATE 4 MG/ML 1 ML CARP\\VIAL IV PRN (15:53)
--- NOTE | 2022-04-22 15:56 | Emergency Department Note ---
Impression & Plan Fracture of femoral neck, left ED Provider Note CHIEF COMPLAINT: Left hip pain x1 week, found to have a left hip fracture at orthopedics today HISTORY OF PRESENT ILLNESS: Patient is a 61-year-old male with past medical history significant for hypertension, GERD, chronic pain syndrome, history of PE on Eliquis, among other chronic medical problems who presents emergency department from orthopedics for surgery for a left hip fracture. The patient has been having pain in his left knee and hip for some time. He had the left hip injected by orthopedics 1 week ago today. He noted very brief improvement in the pain markedly worsened. He was seen in the office today and a left hip x-ray noted a femoral neck fracture. He was directed to the emergency department for admission and ultimate surgical intervention. The patient is complaining of a 9/10 pain in the left hip/groin region. No numbness or tingling. He otherwise has been feeling well except for the joint pain. He does note that he is on Eliquis for a recent diagnosis of PE. His last dose of Eliquis was this morning. REVIEW OF SYSTEMS: Review of systems as per HPI. All other systems reviewed were negative. 10 systems reviewed. PAST MEDICAL HISTORY: Electronic medical records are reviewed and summarized as above/below. See Problem List. SOCIAL HISTORY: Patient lives at home. PHYSICAL EXAM: Vital Signs: Reviewed Nurse's notes. CONSTITUTIONAL: Well-appearing 61-year-old male laying semiupright on the gurney in no acute distress. EYES: Pupils equal, round, reactive to light and accommodation. EOMs intact without nystagmus. Sclera are anicteric. ENT: Tympanic membranes intact, with normal landmarks. External canals are clear. Oral and nasopharynx are clear. Mucous membranes are moist, no lesions, tongue and gums appear normal. CARDIOVASCULAR: Regular rate and rhythm. Peripheral pulses easily palpable. RESPIRATORY: Breath sounds equal and clear to auscultation. ABDOMEN: Bowel sounds are present. The abdomen is soft, nontender, nondistended. EXTREMITIES: Examination of the left lower extremity does not reveal any obvious deformity. He is tender to palpation over the left greater trochanter and the left groin. Range of motion not assessed due to the nature of his injury. The left lower extremity is neurovascularly intact. INTEGUMENTARY: No lesions or rash, normal skin turgor. LYMPH: No lymphadenopathy. EMERGENCY DEPARTMENT COURSE: The patient was seen and assessed as above. Old records were reviewed. Consultation was placed with the [facility] service for admission for clearance and pending surgery. Preoperative labs and EKG and chest x-ray were obtained. The patient was complaining of pain and was given morphine 6 mg IV and Zofran 4 mg IV. He was admitted to the medical service with surgery planned pending medical clearance. Past Med/Surg History Medical History Acute hypotension Atypical chest pain Back pain Cardiomyopathy Nonischemic- resolved Cardiomyopathy, idiopathic Resolved -- LVEF 55% to 60% on 2 D echo 11/04/2019 Chest pain Chronic back pain hx pain pump -- worked for 7 days and then became infected and was removed. unable to reinsert. done in [place] "a long time ago" Chronic use of steroids Congestive heart failure GERD (gastroesophageal reflux disease) Well controlled and stable History of COVID-19 05/2021 asymptomatic. tested positive incidentally while being inpatient with appendicitis Kidney stones No recent issues Restrictive airway disease Per records > Pt denies Per 06/2020 PFTS: Moderate restrictive physiology with bronchodilator response and decreased DLCO Rheumatoid arthritis Steroid dependent- follows with rheum - Dr. Roman Sepsis associated hypotension Spinal stenosis of lumbar region at multiple levels Surgical History H/O cervical spine surgery 2 or 3 levels, full rom. History of colonoscopy History of laparoscopic appendectomy (06/24/21) Laparoscopic Appendectomy, Enterolysis, Repair of Umbilical Hernia - Juan Jones DO 06/24/2021 History of lithotripsy History of lumbar fusion X 2 WITH HARDWARE L2-L4 decompression-fusion 08/06/2020: Grade 1 view, Casey#2, ETT#8.0 atraumatic x 1. No issues per anesthesia postop progress note. History of total knee replacement 11/11/2019: SAB + PNB. No issues per anesthesia postop progress note. 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 Required: No Beliefs That Will Affect Care: None marital status: Life Partner Current Living Situation: Spouse current occupational status: retired and disabled current occupation: [employer] How many Children do You have: 2 Feels Safe at Home: Yes Childhood Exposure to Second-Hand Smoke: No caffeine: Yes Dental Care, Regularly: Yes Physical Activity Frequency: Does not Exercise Seatbelt Use: sometimes Sunscreen Use: No Assistive Devices: Glasses Allergies Allergies Allergy/AdvReac Type Severity Reaction Status Date / Time No Known Drug Allergies Allergy Verified 03/21/22 12:58 Home Meds Home Medications Medication Instructions Recorded Confirmed gabapentin 100 mg capsule 100 mg PO QAM 03/24/18 04/22/22 sacubitril 97 mg-valsartan 103 mg 1 tab PO BID 10/20/19 04/22/22 tablet (Entresto) multivitamin 1 tab PO QAM 01/19/20 04/22/22 duloxetine 30 mg capsule,delayed 30 mg PO HS 06/28/20 04/22/22 release (Cymbalta) gabapentin 300 mg capsule 300 mg PO TID 06/28/20 04/22/22 ashwagandha root extract 300 mg 300 mg PO HS 05/30/21 04/22/22 capsule ferrous sulfate 325 mg (65 mg 325 mg PO QAM 05/30/21 04/22/22 iron) tablet spironolactone 25 mg tablet 25 mg PO QAM 05/30/21 04/22/22 (Aldactone) amoxicillin 500 mg tablet 2,000 mg PO DIRECTED PRN 1 HOUR 12/20/21 04/22/22 PRIOR TO DENTAL WORK. buspirone 15 mg tablet 15 mg PO BID 04/22/22 04/22/22 Previous Rx's Medication Instructions Recorded labetalol 100 mg tablet 100 mg PO BID #180 tabs 01/01/22 nitroglycerin 0.4 mg sublingual 0.4 mg sublingual Q5M PRN chest 01/01/22 tablet pain #25 tabs tamsulosin 0.4 mg capsule (Flomax) 0.4 mg PO DAILY #90 caps 01/15/22 diazepam 5 mg tablet 5 mg PO BID PRN anxiety #60 tabs 01/30/22 cholecalciferol (vitamin D3) 125 125 mcg PO 2XWK #30 tabs 02/03/22 mcg (5,000 unit) tablet (Vitamin D3) memantine 10 mg tablet (Namenda) 10 mg PO BID #180 tabs 02/20/22 apixaban 5 mg tablet (Eliquis) 5 mg PO BID #60 tabs 03/16/22 doxazosin 8 mg tablet (Cardura) 4 mg PO QAM #90 tabs 03/18/22 omeprazole 20 mg capsule,delayed 20 mg PO BID #180 caps 03/19/22 release prednisone 5 mg tablet 5 mg PO DAILY #90 tabs 03/20/22 albuterol sulfate 90 mcg/actuation 2 puff inhalation Q6H PRN 03/21/22 aerosol inhaler shortness of breath or wheezing #6.7 grams furosemide 20 mg tablet 20 mg PO DAILY #30 tabs 03/21/22 ondansetron 4 mg disintegrating 4 mg PO Q8H PRN nausea and 03/21/22 tablet vomiting 4 days #20 tabs morphine 30 mg tablet,extended 30 mg PO Q8H PRN pain, severe #90 03/25/22 release (MS Contin) tabs morphine 15 mg immediate release 30 mg PO Q6H PRN pain #240 tabs 04/10/22 tablet Results & Data (ED) Vital Signs Vital Signs - 24 hr 04/22/22 14:42 Temperature 36.5 C Temperature Source Temporal Artery Scan Pulse Rate 83 Pulse Rhythm Regular Pulse Strength Normal Respiratory Rate 20 Respiratory Effort / Characteristics Non-Labored Spontaneous Respiratory Depth Normal Blood Pressure 156/74 H Blood Pressure Mean 101 Blood Pressure Position Sitting Pulse Oximetry 95 Oxygen Delivery Method Room Air Sepsis Recent Fever Within 48 Hours No Sepsis New/Unexplained Change in Mental Status N/A Sepsis Action Taken by Nursing No Action Required Home Medications Current Medication List: was personally reviewed by me Laboratory Data Attestation: I reviewed the patient's lab results. Result diagrams: 04/22/22 16:00 04/22/22 16:00 Lab Results 04/22/22 04/22/22 04/22/22 Range/Units 16:00 16:00 16:00 WBC 7.85 (4.8-10.8) K/ul RBC 3.29 L (4.63-6.08) M/uL Hgb 10.3 L (14.0-18.0) g/dl Hct 30.8 L (40.1-51.0) % MCV 93.6 (80.0-100.0) fL MCH 31.3 (25.0-34.0) pg MCHC 33.4 (32.0-36.0) g/dL RDW Std Deviation 47.4 H (36.4-46.3) fL RDW Coeff of Jaja 13.8 (11.5-14.5) % Plt Count 277 (130-400) K/uL MPV 9.5 (9.4-12.4) fL Immature Gran % (Auto) 0.3 % Neut % (Auto) 74.4 % Lymph % (Auto) 13.8 % Garvin % (Auto) 9.3 % Eos % (Auto) 1.7 % Baso % (Auto) 0.5 % Neut # (Auto) 5.85 (1.4-6.5) K/uL Lymph # (Auto) 1.08 L (1.2-3.4) K/uL Garvin # (Auto) 0.73 (0.24-0.82) K/uL Eos # (Auto) 0.13 (0-0.50) K/uL Baso # (Auto) 0.04 (0-0.2) K/uL Immature Gran # (Auto) 0.02 (0.00-0.02) K/uL PT 10.6 (9.0-12.0) Seconds INR 1.0 (0.9-1.1) APTT 31.8 H (21.0-31.0) Seconds PTT Ratio 1.2 Sodium 137 (136-145) mmol/L Potassium 4.4 (3.5-5.1) mmol/L Chloride 104 (98-107) mmol/L Carbon Dioxide 29 (21-32) mmol/L Anion Gap 4 (3-11) BUN 24 H (6-23) mg/dl Creatinine 1.00 (0.6-1.4) mg/dl Est Cr Clr Drug Dosing 68.2 ml/min Est GFR ( Amer) 92.4 ml/min Est GFR (Non-Af Amer) 79.7 ml/min BUN/Creatinine Ratio 24.0 H (10-20) Glucose 93 (70-99(Fasting)) mg/dl Calcium 8.8 (8.5-10.1) mg/dl Total Bilirubin 0.6 (0.2-1.0) mg/dl AST 18 (13-39) U/L ALT 11 (7-52) U/L Alkaline Phosphatase 75 (34-104) U/L Total Protein 6.1 (6.0-8.3) gm/dl Albumin 3.8 (3.4-5.0) gm/dl Globulin 2.3 L (2.5-4.0) gm/dl Albumin/Globulin Ratio 1.7 (0.9-2) SARS-CoV-2, RNA, NAAT (NEGATIVE) Blood Type Antibody Screen 04/22/22 04/22/22 Range/Units 16:00 16:19 WBC (4.8-10.8) K/ul RBC (4.63-6.08) M/uL Hgb (14.0-18.0) g/dl Hct (40.1-51.0) % MCV (80.0-100.0) fL MCH (25.0-34.0) pg MCHC (32.0-36.0) g/dL RDW Std Deviation (36.4-46.3) fL RDW Coeff of Jaja (11.5-14.5) % Plt Count (130-400) K/uL MPV (9.4-12.4) fL Immature Gran % (Auto) % Neut % (Auto) % Lymph % (Auto) % Garvin % (Auto) % Eos % (Auto) % Baso % (Auto) % Neut # (Auto) (1.4-6.5) K/uL Lymph # (Auto) (1.2-3.4) K/uL Garvin # (Auto) (0.24-0.82) K/uL Eos # (Auto) (0-0.50) K/uL Baso # (Auto) (0-0.2) K/uL Immature Gran # (Auto) (0.00-0.02) K/uL PT (9.0-12.0) Seconds INR (0.9-1.1) APTT (21.0-31.0) Seconds PTT Ratio Sodium (136-145) mmol/L Potassium (3.5-5.1) mmol/L Chloride (98-107) mmol/L Carbon Dioxide (21-32) mmol/L Anion Gap (3-11) BUN (6-23) mg/dl Creatinine (0.6-1.4) mg/dl Est Cr Clr Drug Dosing ml/min Est GFR ( Amer) ml/min Est GFR (Non-Af Amer) ml/min BUN/Creatinine Ratio (10-20) Glucose (70-99(Fasting)) mg/dl Calcium (8.5-10.1) mg/dl Total Bilirubin (0.2-1.0) mg/dl AST (13-39) U/L ALT (7-52) U/L Alkaline Phosphatase (34-104) U/L Total Protein (6.0-8.3) gm/dl Albumin (3.4-5.0) gm/dl Globulin (2.5-4.0) gm/dl Albumin/Globulin Ratio (0.9-2) SARS-CoV-2, RNA, NAAT NEGATIVE (NEGATIVE) Blood Type A Positive Antibody Screen NEGATIVE Administered Medications Acetaminophen (Acetaminophen 325 Mg Tab) 650 mg PO Q6H [facility] Stop: 05/22/22 17:14 Last Admin: 04/22/22 17:27 Dose: 650 mg Documented By: ADITI Hydromorphone HCl (Hydromorphone Inj 1 Mg/Ml Syringe) 1 mg IV Q4H PRN PRN Reason: Pain (4,5,6 +) Stop: 05/06/22 17:05 Last Admin: 04/22/22 17:28 Dose: 1 mg Documented By: ADITI Discontinued Medications Morphine Sulfate (Morphine Sulfate 10 Mg/Ml Carp/Vial) 6 mg IV NOW STA Stop: 04/22/22 15:54 Last Admin: 04/22/22 16:09 Dose: 6 mg Documented By: ADITI Ondansetron HCl (Ondansetron Inj 2 Mg/Ml 2 Ml Vial) 4 mg IV NOW STA Stop: 04/22/22 15:54 Last Admin: 04/22/22 16:05 Dose: 4 mg Documented By: ADITI Imaging Data Attestation: I personally reviewed and interpreted this imaging study as follows: Radiologist's Impression: Chest X-Ray 04/22/22 15:40 XR chest 1V portable HISTORY: 61 years-old Male PREOP preoperative exam. No acute chest complaints COMPARISON: CTA chest 03/14/2022 TECHNIQUE: AP view the chest FINDINGS: Cardiac silhouette is mildly enlarged. Chronic right hemidiaphragmatic elevation. No pneumothorax, pleural effusion, airspace consolidation or overt pulmonary edema. Cervical spinal fusion hardware. Degenerative changes of the shoulders and spine. IMPRESSION: No acute process. ACT 112: Negative or not required by law. The above report was generated using voice recognition software. It may contain grammatical, syntax or spelling errors. Electronically signed by: Jose E White M.D. 04/22/2022 4:13 PM ECG Data Attestation: I personally reviewed and interpreted this ECG as follows: Indication: + other (preoperative medical clearance) Rate (beats per minute): 72 Rhythm: sinus rhythm ECG Intervals/blocks: + Left bundle branch block ECG Fisher: + Left axis deviation ECG ST segments: + Normal ST segments Comparison ECG Date: from (03/01/2022) Change: no significant change Discharge Plan Visit Data Chief Complaint: Referred by Doctor Stated Complaint: [facility] ED Provider: Casey Calderon ED Midlevel Provider: Gonzalez Grey Discharge Problem: Fracture of femoral neck, left Patient Disposition: Being Evaluated by Hospitalist Discharge Instructions Interventions: ED Discharge Assessment Last Done: 04/22/22 17:27
--- NOTE | 2022-04-22 16:14 | XRay Report ---
XR chest 1V portable HISTORY: 61 years-old Male PREOP preoperative exam. No acute chest complaints COMPARISON: CTA chest 03/14/2022 TECHNIQUE: AP view the chest FINDINGS: Cardiac silhouette is mildly enlarged. Chronic right hemidiaphragmatic elevation. No pneumothorax, pl eural effusion, airspace consolidation or overt pulmonary edema. Cervical spinal fusion hardware. Deg enerative changes of the shoulders and spine. IMPRESSION: No acute process. ACT 112: Negative or not required by law. The above report was generated using voice recognition software. It may contain grammatical, syntax o r spelling errors. Electronically signed by: Jose E White M.D. 04/22/2022 4:13 PM
[2022-04-22 16:23] LABS: Basophils # (auto) 0.04 K/uL (0-0.2); Basophils % (auto) 0.5 %; Eosinophils # (auto) 0.13 K/uL (0-0.50); Eosinophils % (auto) 1.7 %; Hematocrit (blood only) 30.8 % (40.1-51.0); Hemoglobin 10.3 g/dl (14.0-18.0); Immature Granulocytes # (auto) 0.02 K/uL (0.00-0.02); Immature Granulocytes % (auto) 0.3 %; Lymphocytes # (auto) 1.08 K/uL (1.2-3.4); Lymphocytes % (auto) 13.8 %; Mean Corpuscular Hemoglobin 31.3 pg (25.0-34.0); Mean Corpuscular Hgb Conc 33.4 g/dL (32.0-36.0); Mean Corpuscular Volume 93.6 fL (80.0-100.0); Mean Platelet Volume 9.5 fL (9.4-12.4); Monocytes # (auto) 0.73 K/uL (0.24-0.82); Monocytes % (auto) 9.3 %; Neutrophils # (auto) 5.85 K/uL (1.4-6.5); Neutrophils % (auto) 74.4 %; Platelet Count 277 K/uL (130-400); RDW Coefficient of Variation 13.8 % (11.5-14.5); RDW Standard Deviation 47.4 fL (36.4-46.3); Red Blood Count 3.29 M/uL (4.63-6.08); White Blood Count 7.85 K/ul (4.8-10.8)
[2022-04-22 16:35] LABS: Partial Thromboplastin Ratio 1.2; Partial Thromboplastin Time 31.8 Seconds (21.0-31.0); Prothrombin Time 10.6 Seconds (9.0-12.0)
--- NOTE | 2022-04-22 16:43 | History & Physical Report ---
Date of Service April 22, 2022 Assessment & Plan (1) Fracture of femoral neck, left: Plan: -Admit to med/surge -Patient is currently afebrile, hemodynamically stable, and stable on RA -Noted to have displaced left femoral neck fracture in the orthopedic clinic to day and sent to the ED for admission -No acute trauma, fracture likely from reduced bone density from chronic prednisone therapy for RA -Pain control with tylenol 650 mg PO q6h, home po morphine prn for pain 1,2,3, and 1 mg IV Dilaudid q4h prn pain 4,5,6+ -Will make NPO at midnight in case of surgery tomorrow -Chest xray was clear, will obtain ECG surgery clearance -Orthopedics consult placed, touching base with Dr. Cary regarding anticoagulation with recently diagnosed PE's last month -AM CBC and CMP (2) Pulmonary emboli: Plan: -Stable on RA -Was diagnosed last month, has been doing well on Eliquis -Patient's Eliquis will need to be help in preparation for surgery, will switch him to a Heparin Drip now, confirmed with pharmacy, ok to hold heparin Bolus as he had his am dose of Eliquis today -Reaching out to Dr. Cary to see when the heparin drip should be help in preparation for the procedure. (3) BPH (benign prostatic hyperplasia): Plan: -Continue flomax (4) Chronic systolic heart failure: Plan: -Appears mildly edematous in the LE on exam -Continue Entresto, lasix, and Spironolactone (5) Anxiety: Plan: -Continue Buspar and diazepam (6) Hypertension: Plan: -Continue labetalol (7) Rheumatoid arthritis: Plan: -Continue prednisone for now -May require stress dosing in the perioperative period (8) GERD (gastroesophageal reflux disease): Plan: -Continue omeprazole (9) Chronic back pain: Plan: -Pain control may be difficult -See pain control regimen for left hip fracture Plan The patient was discussed with Dr. doshi at the time of the admission History of Present Illness Chief Complaint: left hip fracture on outpatient hip xray Primary Care Provider: Giuseppe Romero MD Aditya is a 61 year old male with a PMH significant for Recent C.diff infection, recently diagnosed Pulmonary emboli in February 2022 on Eliquis, RA on chronic prednisone treatment, HTN, CAD, non-ischemic cardiomyopathy, HFpEF (LVEF of 60-65% as of 01/15/22) , chronic LBBB, alcohol dependence, GERD, S/P right hip replacement on 10/07/[address] Cary, chronic pain from cervical and lumbar spinal stenosis, and CKD who presented to the [facility] ED on 04/22/22 after he was found to have a displaced left femoral neck fracture today at the orthopedic clinic. Per chart review, the patient had been having left hip pain and ambulatory dysfunction over the past month. He was initially seen in the orthopedic clinic on 04/14 for this issue and was given a steroid injection. This only worked for a short time and her returned for worsening pain and ambulatory dysfunction. Xrays of the left hip today show a displaced left femoral neck fracture, he was sent to the ED for further evaluation and admission. At the time of the exam the patient was resting in bed in no acute distress, he is in moderate pain due to his current hip fracture. He states that he started developing left hip pain approximately 2 weeks ago, this was insidious in nature and he denies any acute trauma. He states that he did not have improvement after the left hip steroid injection last week. He states he has been doing well otherwise and denies any recent bleeding or easy bruising on the Eliquis. he states that the morphine he received earlier did not relieve his pain and he would like to try something else. I spoke to him regarding code status, he is a full code. In the ED the patient was found to be afebrile, hemodynamically stable, and stable on RA. Labs were remarkable for WBC WNL, stable Hgb at 10.3, stable platelets, stable renal function and electrolytes, and covid negative. Chest xray was negative for acute process. Prior to admission the patient was given 10 mg total of IV morphine and 4 mg of IV zofran. Please refer to Dr. Doshi's attestation for any changes to the treatment plan. Allergies Allergy/AdvReac Type Severity Reaction Status Date / Time No Known Drug Allergies Allergy Verified 03/21/22 12:58 Home Medications Medication Instructions Recorded Confirmed Type gabapentin 100 mg capsule 100 mg PO QAM 03/24/18 04/22/22 History sacubitril 97 mg-valsartan 103 mg 1 tab PO BID 10/20/19 04/22/22 History tablet (Entresto) multivitamin 1 tab PO QAM 01/19/20 04/22/22 History duloxetine 30 mg capsule,delayed 30 mg PO HS 06/28/20 04/22/22 History release (Cymbalta) gabapentin 300 mg capsule 300 mg PO TID 06/28/20 04/22/22 History ashwagandha root extract 300 mg 300 mg PO HS 05/30/21 04/22/22 History capsule ferrous sulfate 325 mg (65 mg 325 mg PO QAM 05/30/21 04/22/22 History iron) tablet spironolactone 25 mg tablet 25 mg PO QAM 05/30/21 04/22/22 History (Aldactone) amoxicillin 500 mg tablet 2,000 mg PO DIRECTED PRN 1 HOUR 12/20/21 04/22/22 History PRIOR TO DENTAL WORK. labetalol 100 mg tablet 100 mg PO BID #180 tabs 01/01/22 04/22/22 Rx nitroglycerin 0.4 mg sublingual 0.4 mg sublingual Q5M PRN chest 01/01/22 04/22/22 Rx tablet pain #25 tabs tamsulosin 0.4 mg capsule (Flomax) 0.4 mg PO DAILY #90 caps 01/15/22 04/22/22 Rx diazepam 5 mg tablet 5 mg PO BID PRN anxiety #60 tabs 01/30/22 04/22/22 Rx cholecalciferol (vitamin D3) 125 125 mcg PO 2XWK #30 tabs 02/03/22 04/22/22 Rx mcg (5,000 unit) tablet (Vitamin D3) memantine 10 mg tablet (Namenda) 10 mg PO BID #180 tabs 02/20/22 04/22/22 Rx apixaban 5 mg tablet (Eliquis) 5 mg PO BID #60 tabs 03/16/22 04/22/22 Rx doxazosin 8 mg tablet (Cardura) 4 mg PO QAM #90 tabs 03/18/22 04/22/22 Rx omeprazole 20 mg capsule,delayed 20 mg PO BID #180 caps 03/19/22 04/22/22 Rx release prednisone 5 mg tablet 5 mg PO DAILY #90 tabs 03/20/22 04/22/22 Rx albuterol sulfate 90 mcg/actuation 2 puff inhalation Q6H PRN 03/21/22 04/22/22 R x aerosol inhaler shortness of breath or wheezing #6.7 grams furosemide 20 mg tablet 20 mg PO DAILY #30 tabs 03/21/22 04/22/22 Rx ondansetron 4 mg disintegrating 4 mg PO Q8H PRN nausea and 03/21/22 04/22/22 Rx tablet vomiting 4 days #20 tabs morphine 30 mg tablet,extended 30 mg PO Q8H PRN pain, severe #90 03/25/22 04/22/22 Rx release (MS Contin) tabs morphine 15 mg immediate release 30 mg PO Q6H PRN pain #240 tabs 04/10/22 04/22/22 Rx tablet buspirone 15 mg tablet 15 mg PO BID 04/22/22 04/22/22 History Past Med/Surg History Medical History Acute hypotension Atypical chest pain Back pain Cardiomyopathy Nonischemic- resolved Cardiomyopathy, idiopathic Resolved -- LVEF 55% to 60% on 2 D echo 11/04/2019 Chest pain Chronic back pain hx pain pump -- worked for 7 days and then became infected and was removed. unable to reinsert. done in [place] "a long time ago" Chronic use of steroids Congestive heart failure GERD (gastroesophageal reflux disease) Well controlled and stable History of COVID-19 05/2021 asymptomatic. tested positive incidentally while being inpatient with appendicitis Kidney stones No recent issues Restrictive airway disease Per records > Pt denies Per 06/2020 PFTS: Moderate restrictive physiology with bronchodilator response and decreased DLCO Rheumatoid arthritis Steroid dependent- follows with rheum - Dr. Roman Sepsis associated hypotension Spinal stenosis of lumbar region at multiple levels Surgical History H/O cervical spine surgery 2 or 3 levels, full rom. History of colonoscopy History of laparoscopic appendectomy (06/24/21) Laparoscopic Appendectomy, Enterolysis, Repair of Umbilical Hernia - Juan Jones, DO 06/24/2021 History of lithotripsy History of lumbar fusion X 2 WITH HARDWARE L2-L4 decompression-fusion 08/06/2020: Grade 1 view, Casey#2, ETT#8.0 atraumatic x 1. No issues per anesthesia postop progress note. History of total knee replacement 11/11/2019: SAB + PNB. No issues per anesthesia postop progress note. 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 Required: No Beliefs That Will Affect Care: None marital status: Life Partner Current Living Situation: Spouse current occupational status: retired and disabled current occupation: [employer] How many Children do You have: 2 Feels Safe at Home: Yes Childhood Exposure to Second-Hand Smoke: No caffeine: Yes Dental Care, Regularly: Yes Physical Activity Frequency: Does not Exercise Seatbelt Use: sometimes Sunscreen Use: No Assistive Devices: Glasses Review of Systems Review of Systems: Denies current fever, chills, headache, changes in vision, hearing, taste, and smell, chest pain, SOB, cough, abdominal pain, nausea, vomiting, diarrhea, hematemesis, melena, dysuria, hematuria, and recent falls. All systems have been reviewed and are otherwise negative. Physical Exam Physical Exam: Physical Exam: General: In no acute distress, stated age, well-nourished, good hygiene HEENT: Normocephalic, atraumatic, no scleral icterus, pupils around round, symmetrical, and reactive to light, moist mucus membranes, trachea midline, no thyromegaly Chest/Pulm: No respiratory distress, symmetrical chest expansion, clear breath sounds throughout Cardiac: RRR, no murmurs noted Abdomen: Negative for ascites and bruising, normoactive bowel sounds, soft, non-tender to palpation throughout Musculoskeletal: Symmetrical ROM in the BL upper extremities, RLE without ROM limitation or pain, LLE with limited hip and knee flexion due to pain from fracture, intact sensation and motor function noted in the BL LE's Extremities: Radial, dorsalis pedis, and posterior tibial pulses are intact and symmetrical, +1 edema noted in the JESSE's Skin: Warm, dry, no rashes , lesions, or scars noted Neuro: Alert and oriented to person, place, month, year, and president, no focal defects, CN II-XII tested and intact, finger to nose test negative, no tremors noted Psych: No acute distress, calm and cooperative during the exam Results & Data Results & Data ([facility]) Vital Signs (Past 12 Hours) Vital Signs Temp Pulse Resp BP Pulse Ox O2 Del Method 04/22/22 14:42 36.5 C 83 20 156/74 H 95 Room Air Laboratory Results Abnormal lab results 04/22/22 04/22/22 04/22/22 Range/Units 16:00 16:00 16:00 RBC 3.29 L (4.63-6.08) M/uL Hgb 10.3 L (14.0-18.0) g/dl Hct 30.8 L (40.1-51.0) % RDW Std Deviation 47.4 H (36.4-46.3) fL Lymph # (Auto) 1.08 L (1.2-3.4) K/uL APTT 31.8 H (21.0-31.0) Seconds BUN 24 H (6-23) mg/dl BUN/Creatinine Ratio 24.0 H (10-20) Globulin 2.3 L (2.5-4.0) gm/dl Urine Ketones (Negative) 04/22/22 Range/Units 16:50 RBC (4.63-6.08) M/uL Hgb (14.0-18.0) g/dl Hct (40.1-51.0) % RDW Std Deviation (36.4-46.3) fL Lymph # (Auto) (1.2-3.4) K/uL APTT (21.0-31.0) Seconds BUN (6-23) mg/dl BUN/Creatinine Ratio (10-20) Globulin (2.5-4.0) gm/dl Urine Ketones Trace H (Negative) Diagnostic Findings Chest X-Ray 04/22/22 15:40 XR chest 1V portable HISTORY: 61 years-old Male PREOP preoperative exam. No acute chest complaints COMPARISON: CTA chest 03/14/2022 TECHNIQUE: AP view the chest FINDINGS: Cardiac silhouette is mildly enlarged. Chronic right hemidiaphragmatic elevation. No pneumothorax, pleural effusion, airspace consolidation or overt pulmonary edema. Cervical spinal fusion hardware. Degenerative changes of the shoulders and spine. IMPRESSION: No acute process. ACT 112: Negative or not required by law. The above report was generated using voice recognition software. It may contain grammatical, syntax or spelling errors. Electronically signed by: Jose E White M.D. 04/22/2022 4:13 PM ECG Additional Comments: Will obtain ECG at the time of the admission Code Status & VTE Plan Code Status Full code VTE Prophylaxis Plan VTE Prophylaxis will be ordered: Yes Supervising Physician Co-Signing Physician Notes Patient seen and examined, chart reviewed, case discussed with Elie Jack PA-C and I agree with the assessment and plan as above except as otherwise noted Labs and images reviewed Aditya is a 61-year-old male with a past medical history of PE diagnosed in the last month on apixaban, CAD, hypertension, heart failure with preserved ejection fraction, GERD, prior right hip replacement 09/2021, cervical/lumbar stenosis, and CKD who presented to the ER after he was seen in the outpatient clinic and found to have a left femoral neck fracture. Patient was seen due to ambulatory dysfunction and left hip pain past month, denies a fall/sudden injury/snap/crack. He is seen at the bedside after admission, reports that his left hip is about a 9/10 in pain and uncomfortable to him but which improves wit h his pain medication to painful but tolerable. He has not had any bleeding. Denies chest pain, chest pressure, shortness of breath. On assessment focally tender in the proximal thigh/lateral left hip. Sensation of soft touch in the feet is intact bilaterally, ankle dorsiflexion/plantarflexion is intact bilaterally, cap refill is symmetrical. Ortho has been consulted and anticipate operative intervention tomorrow morning. We will convert DOAC to heparin drip and pause 6 hours prior to surgery. Given PE within 1 month is high risk and would resume anticoagulation within 24 hours if no concerns for significant bleeding or delayed hemostasis. Continue scaled pain control. Chest x-ray is no acute findings or evidence of acute volume overload, renal function is at baseline and 1.0 on admission. COVID is negative. Hold Entresto morning of surgery to prevent precipitation of hypotension with anesthesia. Otherwise agree as above PG Care Time/CCT Total # of Minutes Spent Total Time Spent with Patient: Total time spent is greater than 50% in coordination of care (as documented) at patient's floor/unit and/or counseling patient: C[place] [address] Initial Inpt Care Lvl 3 Patient Type Established Medical Decision Making High Complexity Diagnoses Fracture of femoral neck, left S72.002A Pulmonary emboli I26.99 BPH (benign prostatic hyperplasia) N40.0 Chronic systolic heart failure I50.22 Anxiety F41.9 Hypertension I10 Rheumatoid arthritis M06.9 Rheumatoid arthritis location: unspecified site Rheumatoid factor presence: unspecified presence GERD (gastroesophageal reflux disease) K21.9 Chronic back pain M54.9; G89.29 (1) Rheumatoid arthritis Rheumatoid arthritis location: unspecified site Rheumatoid factor presence: unspecified presence Qualified Code(s): M06.9 - Rheumatoid arthritis, unspecified
[2022-04-22 16:53] LABS: Albumin Globulin Ratio 1.7 (0.9-2); Albumin Level 3.8 gm/dl (3.4-5.0); Bilirubin,Total 0.6 mg/dl (0.2-1.0); Calcium 8.8 mg/dl (8.5-10.1); Creatinine Clr Calc Pharmacy 68.2 ml/min; Est GFR (African American) 92.4 ml/min; Est GFR (Non-African American) 79.7 ml/min; Globulin 2.3 gm/dl (2.5-4.0); Potassium 4.4 mmol/L (3.5-5.1); Total Protein 6.1 gm/dl (6.0-8.3)
[2022-04-22 17:06] LABS: Appearance Urine Clear (Clear); Bilirubin Urine Negative (Negative); Blood Urine Negative (Negative); Color Urine Yellow; Glucose Urine UA Negative (Negative); Ketones Urine Trace (Negative); Leukocyte Esterase Urine Negative (Negative); Nitrite Urine Negative (Negative); Protein Urine Negative (Negative); Specific Gravity Urine 1.015 (1.000-1.030); Urobilinogen Urine Negative (Negative)
[2022-04-22] MEDS: ACETAMINOPHEN 325 MG TAB PO SCH ×2 (17:27→23:44)
[2022-04-22] MEDS: HYDROmorphone INJ 1 MG/ML SYRINGE IV PRN ×2 (17:28→21:33)
[2022-04-22] MEDS ORDERED: ALBUTEROL HFA 8 GM INHALER INH PRN (17:28)
[2022-04-22] MEDS ORDERED: diazePAM 5 MG TABLET PO PRN (17:28)
[2022-04-22] MEDS ORDERED: HEPARIN SODIUM/DEXTROSE 25,000 UNITS/500 ML BAG IV SCH ×2 (17:45→21:00)
[2022-04-22] MEDS ORDERED: Heparin IV Adult Wt-Based Standard *NO* Bolus Protocol IV SCH (17:45)
[2022-04-22] MEDS: MoRPHine SULFATE IR 15 MG TAB (IMMEDIATE RELEASE) PO PRN (23:19)
[2022-04-22] MEDS: LABETALOL HCL 100 MG TAB PO SCH (23:41)
[2022-04-22] MEDS: busPIRone 15 MG TAB PO SCH (23:41)
[2022-04-22] MEDS: VALSARTAN/SACUBITRIL 103/97MG TAB PO SCH (23:43)
[2022-04-22] MEDS: DULoxetine HCL 30 MG CAP PO SCH (23:43)
[2022-04-22] MEDS: PANTOprazole 40 MG TAB PO SCH (23:44)
[2022-04-22] MEDS: MEMANTINE HCL 10 MG TAB PO SCH (23:44)
[2022-04-23] MEDS: HYDROmorphone INJ 1 MG/ML SYRINGE IV PRN ×11 (01:30→19:34)
[2022-04-23] MEDS: ACETAMINOPHEN 325 MG TAB PO SCH ×4 (05:21→22:53)
[2022-04-23 07:02] LABS: Hematocrit (blood only) 29.1 % (40.1-51.0); Hemoglobin 9.4 g/dl (14.0-18.0); Mean Corpuscular Hemoglobin 31.2 pg (25.0-34.0); Mean Corpuscular Hgb Conc 32.3 g/dL (32.0-36.0); Mean Corpuscular Volume 96.7 fL (80.0-100.0); Mean Platelet Volume 9.7 fL (9.4-12.4); Platelet Count 258 K/uL (130-400); RDW Coefficient of Variation 13.8 % (11.5-14.5); RDW Standard Deviation 49.1 fL (36.4-46.3); Red Blood Count 3.01 M/uL (4.63-6.08); White Blood Count 5.88 K/ul (4.8-10.8)
[2022-04-23] MEDS ORDERED: ONDANSETRON INJ 2 MG/ML 2 ML VIAL IV PRN ×2 (07:03→14:44)
--- NOTE | 2022-04-23 07:03 | Orthopedic Consultation ---
Date of Service April 23, 2022 Assessment & Plan (1) Fracture of femoral neck, left: He was educated on this fracture and treatment options. I did recommend hip replacement for him, as he does have fairly advanced djd as well. Procedure was explained including risks, benefits, and alternatives to surgery. He wants to proceed with surgery. Consent obtained. Dr. Stringer will be doing his hip replacement today. He is npo. Anticoagulation was held. He has some nausea so will order zofran. History of Present Illness Reason for Consultation: . Requesting Physician: . Attending Physician: Ike Doshi MD . Mr Moses is a 61 year old patient admitted yesterday with a left femoral neck fracture. He has an extensive history, which was reviewed and includes recent c. diff infection, recent PE, cardiomyopathy/CAD, left bundle branch block, RA on chronic prednisone, total hip replacement, total knee replacement, and multiple spine surgeries. He had right NISA approx 6 months ago. He developed some left hip pain which was worsening about a month ago. He did have an intraarticular hip injection 04/14/22 and did have some relief of his hip pain. However, he was having worsening knee pain/difficulty with ambulation, was using a walker/cane, and presented to the office again, new xrays were obtained and he was found to have a displaced femoral neck fracture. He is on eliquis. Allergies Allergy/AdvReac Type Severity Reaction Status Date / Time No Known Drug Allergies Allergy Verified 03/21/22 12:58 Home Medications Medication Instructions Recorded Confirmed Type gabapentin 100 mg capsule 100 mg PO QAM 03/24/18 04/22/22 History sacubitril 97 mg-valsartan 103 mg 1 tab PO BID 10/20/19 04/22/22 History tablet (Entresto) multivitamin 1 tab PO QAM 01/19/20 04/22/22 History duloxetine 30 mg capsule,delayed 30 mg PO HS 06/28/20 04/22/22 History release (Cymbalta) gabapentin 300 mg capsule 300 mg PO TID 06/28/20 04/22/22 History ashwagandha root extract 300 mg 300 mg PO HS 05/30/21 04/22/22 History capsule ferrous sulfate 325 mg (65 mg 325 mg PO QAM 05/30/21 04/22/22 History iron) tablet spironolactone 25 mg tablet 25 mg PO QAM 05/30/21 04/22/22 History (Aldactone) amoxicillin 500 mg tablet 2,000 mg PO DIRECTED PRN 1 HOUR 12/20/21 04/22/22 History PRIOR TO DENTAL WORK. labetalol 100 mg tablet 100 mg PO BID #180 tabs 01/01/22 04/22/22 Rx nitroglycerin 0.4 mg sublingual 0.4 mg sublingual Q5M PRN chest 01/01/22 04/22/22 Rx tablet pain #25 tabs tamsulosin 0.4 mg capsule (Flomax) 0.4 mg PO DAILY #90 caps 01/15/22 04/22/22 Rx diazepam 5 mg tablet 5 mg PO BID PRN anxiety #60 tabs 01/30/22 04/22/22 Rx cholecalciferol (vitamin D3) 125 125 mcg PO 2XWK #30 tabs 02/03/22 04/22/22 Rx mcg (5,000 unit) tablet (Vitamin D3) memantine 10 mg tablet (Namenda) 10 mg PO BID #180 tabs 02/20/22 04/22/22 Rx apixaban 5 mg tablet (Eliquis) 5 mg PO BID #60 tabs 03/16/22 04/22/22 Rx doxazosin 8 mg tablet (Cardura) 4 mg PO QAM #90 tabs 03/18/22 04/22/22 Rx omeprazole 20 mg capsule,delayed 20 mg PO BID #180 caps 03/19/22 04/22/22 Rx release prednisone 5 mg tablet 5 mg PO DAILY #90 tabs 03/20/22 04/22/22 Rx albuterol sulfate 90 mcg/actuation 2 puff inhalation Q6H PRN 03/21/22 04/22/22 Rx aerosol inhaler shortness of breath or wheezing #6.7 grams furosemide 20 mg tablet 20 mg PO DAILY #30 tabs 03/21/22 04/22/22 Rx ondansetron 4 mg disintegrating 4 mg PO Q8H PRN nausea and 03/21/22 04/22/22 Rx tablet vomiting 4 days #20 tabs morphine 30 mg tablet,extended 30 mg PO Q8H PRN pain, severe #90 03/25/22 04/22/22 Rx release (MS Contin) tabs morphine 15 mg immediate release 30 mg PO Q6H PRN pain #240 tabs 04/10/22 04/22/22 Rx tablet buspirone 15 mg tablet 15 mg PO BID 04/22/22 04/22/22 History Past Med/Surg History Medical History Acute hypotension Atypical chest pain Back pain Cardiomyopathy Nonischemic- resolved Cardiomyopathy, idiopathic Resolved -- LVEF 55% to 60% on 2 D echo 11/04/2019 Chest pain Chronic back pain hx pain pump -- worked for 7 days and then became infected and was removed. unable to reinsert. done in [place] "a long time ago" Chronic use of steroids Congestive heart failure GERD (gastroesophageal reflux disease) Well controlled and stable History of COVID-19 05/2021 asymptomatic. tested positive incidentally while being inpatient with appendicitis Kidney stones No recent issues Restrictive airway disease Per records > Pt denies Per 06/2020 PFTS: Moderate restrictive physiology with bronchodilator response and decreased DLCO Rheumatoid arthritis Steroid dependent- follows with rheum - Dr. Roman Sepsis associated hypotension Spinal stenosis of lumbar region at multiple levels Surgical History H/O cervical spine surgery 2 or 3 levels, full rom. History of colonoscopy History of laparoscopic appendectomy (06/24/21) Laparoscopic Appendectomy, Enterolysis, Repair of Umbilical Hernia - Juan Jones, DO 06/24/2021 History of lithotripsy History of lumbar fusion X 2 WITH HARDWARE L2-L4 decompression-fusion 08/06/2020: Grade 1 view, Casey#2, ETT#8.0 atraumatic x 1. No issues per anesthesia postop progress note. History of total knee replacement 11/11/2019: SAB + PNB. No issues per anesthesia postop progress note. Status post knee replacement Status post right hip replacement (~09/2021) Family History Mother Family hx of colon cancer Father , age 65 Myocardial infarction Other No family history of adverse response to anesthesia No family history of bleeding disorder Denies family history of Ovarian cancer Prostate cancer Breast cancer Lung cancer Social History Smoking Status: Former smoker Smoking End Date: 30 years ago; Second Hand Exposure: No; Tobacco Cessation Education Requested by Patient: No Hx Alcohol Use: No Hx Substance Use: No Preferred Language: Kyrgyz Communication Ability: Effective Visual Impairment: Partially Limited Speech And Language Clinician Required: No Beliefs That Will Affect Care: None marital status: Life Partner Current Living Situation: Spouse current occupational status: retired and disabled current occupation: [employer] How many Children do You have: 2 Other Information That Helps Us Care for You: No Feels Safe at Home: Yes Safety Concerns: Feels Safe At This Time Childhood Exposure to Second-Hand Smoke: No caffeine: Yes Dental Care, Regularly: Yes Physical Activity Frequency: Does not Exercise Seatbelt Use: sometimes Sunscreen Use: No Assistive Devices: Cane and Glasses Assistive Devices Comment: glasses at bedside cane at home Review of Systems All systems reviewed & are unremarkable except as noted in HPI & below. Physical Exam .alert and oriented. NAD Left leg: has left hip pain with limited motion of the hip. Small knee effusion. Able to dorsiflex and plantarflex. NVI. Skin intact around the left hip. Results & Data Results & Data Laboratory Results . Diagnostic Findings .xrays reviewed of his hip and show a displaced left femoral neck fracture, as well has hip djd. PG Care Time/CCT Total # of Minutes Spent Total Time Spent with Patient: Total time spent is greater than 50% in coordination of care (as documented) at patient's floor/unit and/or counseling patient: Coding Level of Care Code 96606 Inpt Consult Level 4 Diagnoses Fracture of femoral neck, left S72.002A
[2022-04-23 07:15] LABS: Prothrombin Time 10.5 Seconds (9.0-12.0)
[2022-04-23 07:35] LABS: Albumin Globulin Ratio 1.6 (0.9-2); Albumin Level 3.3 gm/dl (3.4-5.0); Bilirubin,Total 0.4 mg/dl (0.2-1.0); Calcium 8.3 mg/dl (8.5-10.1); Creatinine Clr Calc Pharmacy 62.9 ml/min; Est GFR (African American) 83.3 ml/min; Est GFR (Non-African American) 71.9 ml/min; Globulin 2.1 gm/dl (2.5-4.0); Potassium 4.4 mmol/L (3.5-5.1); Total Protein 5.4 gm/dl (6.0-8.3)
[2022-04-23] MEDS ORDERED: VANCOMYCIN CONSULT ACTIVE PRN (08:07)
[2022-04-23] MEDS: busPIRone 15 MG TAB PO SCH ×2 (08:22→21:35)
[2022-04-23] MEDS: MEMANTINE HCL 10 MG TAB PO SCH ×2 (08:23→21:35)
[2022-04-23] MEDS: LABETALOL HCL 100 MG TAB PO SCH ×2 (08:23→21:36)
[2022-04-23] MEDS: PANTOprazole 40 MG TAB PO SCH ×2 (08:24→21:35)
[2022-04-23] MEDS: MULTIVITAMIN TAB PO SCH (08:25)
[2022-04-23] MEDS: predniSONE 5 MG TAB PO SCH (08:25)
[2022-04-23] MEDS: GABAPENTIN 100 MG CAP PO SCH (08:25)
[2022-04-23] MEDS: SPIRONOLACTONE 25 MG TAB PO SCH (08:25)
[2022-04-23] MEDS: FERROUS SULFATE 325 MG TAB PO SCH (08:25)
[2022-04-23] MEDS: TAMSULOSIN HCL 0.4 MG CAP PO SCH (08:26)
[2022-04-23] MEDS: FUROSEMIDE 20 MG TAB PO SCH (08:26)
--- NOTE | 2022-04-23 08:32 | Anesthesiology Consultation ---
Date of Service April 23, 2022 Assessment & Plan (1) Encounter for pre-operative examination: Chart Review Chart Review: Acceptable Risk for Surgery and Patient NOT seen in Pre Admission Testing Consults Requested none History Surgery Operation Date: 04/23/22 07:40 Proposed Procedures p Left Total Hip Arthroplasty - Luis Fernando Stringer MD Height/Weight Height: 5 ft 1 in Weight: 81.8 kg Allergies Allergy/AdvReac Type Severity Reaction Status Date / Time No Known Drug Allergies Allergy Verified 03/21/22 12:58 Medications Home Medications Medication Instructions Recorded Confirmed Last Taken gabapentin 100 mg capsule 100 mg PO QAM 03/24/18 04/22/22 03/01/22 sacubitril 97 mg-valsartan 103 mg 1 tab PO BID 10/20/19 04/22/22 03/01/22 08:00 tablet (Entresto) multivitamin 1 tab PO QAM 01/19/20 04/22/22 03/01/22 duloxetine 30 mg capsule,delayed 30 mg PO HS 06/28/20 04/22/22 02/28/22 release (Cymbalta) gabapentin 300 mg capsule 300 mg PO TID 06/28/20 04/22/22 02/28/22 ashwagandha root extract 300 mg 300 mg PO HS 05/30/21 04/22/22 02/28/22 capsule ferrous sulfate 325 mg (65 mg 325 mg PO QAM 05/30/21 04/22/22 03/01/22 iron) tablet spironolactone 25 mg tablet 25 mg PO QAM 05/30/21 04/22/22 03/01/22 (Aldactone) amoxicillin 500 mg tablet 2,000 mg PO DIRECTED PRN 1 HOUR 12/20/21 04/22/22 Unknown PRIOR TO DENTAL WORK. labetalol 100 mg tablet 100 mg PO BID #180 tabs 01/01/22 04/22/22 03/01/22 08:00 nitroglycerin 0.4 mg sublingual 0.4 mg sublingual Q5M PRN chest 01/01/22 04/22/22 Unknown tablet pain #25 tabs tamsulosin 0.4 mg capsule (Flomax) 0.4 mg PO DAILY #90 caps 01/15/22 04/22/22 03/01/22 diazepam 5 mg tablet 5 mg PO BID PRN anxiety #60 tabs 01/30/22 04/22/22 Unknown cholecalciferol (vitamin D3) 125 125 mcg PO 2XWK #30 tabs 02/03/22 04/22/22 02/28/22 mcg (5,000 unit) tablet (Vitamin D3) memantine 10 mg tablet (Namenda) 10 mg PO BID #180 tabs 02/20/22 04/22/22 03/01/22 08:00 apixaban 5 mg tablet (Eliquis) 5 mg PO BID #60 tabs 03/16/22 04/22/22 Unknown doxazosin 8 mg tablet (Cardura) 4 mg PO QAM #90 tabs 03/18/22 04/22/22 Unknown omeprazole 20 mg capsule,delayed 20 mg PO BID #180 caps 03/19/22 04/22/22 Unknown release prednisone 5 mg tablet 5 mg PO DAILY #90 tabs 03/20/22 04/22/22 Unknown albuterol sulfate 90 mcg/actuation 2 puff inhalation Q6H PRN 03/21/22 04/22/22 Unknown aerosol inhaler shortness of breath or wheezing #6.7 grams furosemide 20 mg tablet 20 mg PO DAILY #30 tabs 03/21/22 04/22/22 Unknown ondansetron 4 mg disintegrating 4 mg PO Q8H PRN nausea and 03/21/22 04/22/22 Unknown tablet vomiting 4 days #20 tabs morphine 30 mg tablet,extended 30 mg PO Q8H PRN pain, severe #90 03/25/22 04/22/22 Unknown release (MS Contin) tabs morphine 15 mg immediate release 30 mg PO Q6H PRN pain #240 tabs 04/10/22 04/22/22 Unknown tablet buspirone 15 mg tablet 15 mg PO BID 04/22/22 04/22/22 Unknown Active Medications Generic Name Dose Route Start Last Admin Trade Name Freq PRN Reason Stop Dose Admin Acetaminophen 650 mg 04/22/22 17:15 04/23/22 05:21 Acetaminophen 325 Mg Tab PO 05/22/22 17:14 650 mg Q6H WILLIAM Administration Buspirone HCl 15 mg 04/22/22 21:00 04/23/22 08:22 Buspirone 15 Mg Tab PO 05/22/22 20:59 15 mg BID WILLIAM Administration Diazepam 5 mg 04/22/22 17:28 04/22/22 20:34 Diazepam 5 Mg Tablet PO 05/22/22 17:27 5 mg BID PRN Administration anxiety Duloxetine HCl 30 mg 04/22/22 21:00 04/22/22 23:43 Duloxetine Hcl 30 Mg Cap PO 05/22/22 20:59 30 mg HS WILLIAM Administration Ferrous Sulfate 325 mg 04/23/22 09:00 04/23/22 08:25 Ferrous Sulfate 325 Mg Tab PO 05/23/22 08:59 325 mg QAM WILLIAM Administration Furosemide 20 mg 04/23/22 09:00 04/23/22 08:26 Furosemide 20 Mg Tab PO 05/23/22 08:59 20 mg DAILY WILLIAM Administration Gabapentin 100 mg 04/23/22 09:00 04/23/22 08:25 Gabapentin 100 Mg Cap PO 05/23/22 08:59 100 mg QAM WILLIAM Administration Hydromorphone HCl 1 mg 04/22/22 17:06 04/23/22 05:22 Hydromorphone Inj 1 Mg/Ml Syringe IV 05/06/22 17:05 1 mg Q4H PRN Administration Pain (4,5,6 +) Labetalol HCl 100 mg 04/22/22 21:00 04/23/22 08:23 Labetalol Hcl 100 Mg Tab PO 05/22/22 20:59 100 mg BID WILLIAM Administration Memantine 10 mg 04/22/22 21:00 04/23/22 08:23 Memantine Hcl 10 Mg Tab PO 05/22/22 20:59 10 mg BID WILLIAM Administration Morphine Sulfate 30 mg 04/22/22 17:28 04/22/22 23:19 Morphine Sulfate Ir 15 Mg Tab (Immediate Release) PO 05/06/22 17:27 30 mg Q6H PRN Administration pain (1,2,3) Multivitamins 1 tab 04/23/22 09:00 04/23/22 08:25 Multivitamin Tab PO 05/23/22 08:59 1 tab QAM WILLIAM Administration Pantoprazole Sodium 40 mg 04/22/22 21:00 04/23/22 08:24 Pantoprazole 40 Mg Tab PO 05/22/22 20:59 40 mg BID WILLIAM Administration Prednisone 5 mg 04/23/22 09:00 04/23/22 08:25 Prednisone 5 Mg Tab PO 05/23/22 08:59 5 mg DAILY WILLIAM Administration Sacubitril/Valsartan 1 tab 04/22/22 21:00 04/22/22 23:43 Valsartan/Sacubitril 103/97mg Tab PO 05/22/22 20:59 1 tab BID WILLIAM Administration Spironolactone 25 mg 04/23/22 09:00 04/23/22 08:25 Spironolactone 25 Mg Tab PO 05/23/22 08:59 25 mg QAM WILLIAM Administration Tamsulosin HCl 0.4 mg 04/23/22 09:00 04/23/22 08:26 Tamsulosin Hcl 0.4 Mg Cap PO 05/23/22 08:59 0.4 mg DAILY WILLIAM Administration Past Medical History Medical History Acute hypotension Atypical chest pain Back pain Cardiomyopathy Nonischemic- resolved Cardiomyopathy, idiopathic Resolved -- LVEF 55% to 60% on 2 D echo 11/04/2019 Chest pain Chronic back pain hx pain pump -- worked for 7 days and then became infected and was removed. u sharmaine to reinsert. done in [place] "a long time ago" Chronic use of steroids Congestive heart failure GERD (gastroesophageal reflux disease) Well controlled and stable History of COVID-19 05/2021 asymptomatic. tested positive incidentally while being inpatient with appendicitis Kidney stones No recent issues Restrictive airway disease Per records > Pt denies Per 06/2020 PFTS: Moderate restrictive physiology with bronchodilator response and decreased DLCO Rheumatoid arthritis Steroid dependent- follows with rheum - Dr. Roman Sepsis associated hypotension Spinal stenosis of lumbar region at multiple levels Past Family History Family History Mother Family hx of colon cancer Father , age 65 Myocardial infarction Other No family history of adverse response to anesthesia No family history of bleeding disorder Denies family history of Ovarian cancer Prostate cancer Breast cancer Lung cancer Past Surgical History Surgical History H/O cervical spine surgery 2 or 3 levels, full rom. History of colonoscopy History of laparoscopic appendectomy (06/24/21) Laparoscopic Appendectomy, Enterolysis, Repair of Umbilical Hernia - Juan Jones DO 06/24/2021 History of lithotripsy History of lumbar fusion X 2 WITH HARDWARE L2-L4 decompression-fusion 08/06/2020: Grade 1 view, Casey#2, ETT#8.0 atraumatic x 1. No issues per anesthesia postop progress note. History of total knee replacement 11/11/2019: SAB + PNB. No issues per anesthesia postop progress note. Status post knee replacement Status post right hip replacement (~09/2021) Social History Smoking Status: Former smoker Smoking End Date: 30 years ago Hx Alcohol Use: No Alcohol type: hard liquor Hx Substance Use: No substance use type: does not use Physical Exam Vital Signs Last Vital Signs Temp 98.2 F 04/23/22 07:37 Pulse 67 04/23/22 07:37 Resp 18 04/23/22 07:37 BP 104/61 04/23/22 07:37 Pulse Ox 97 04/23/22 07:37 O2 Del Method 04/23/22 07:37 O2 Flow Rate 1.5 04/23/22 07:37 Testing Laboratory Results 04/23/22 06:21 04/23/22 06:21 PT 10.5 Seconds (9.0-12.0) 04/23/22 06:21 INR 1.0 (0.9-1.1) 04/23/22 06:21 APTT 31.8 Seconds (21.0-31.0) H 04/22/22 16:00 Urine Color Yellow 04/22/22 16:50 Urine Appearance Clear (Clear) 04/22/22 16:50 Urine pH 6.0 (4.5-7.5) 04/22/22 16:50 Ur Specific [place] 1.015 (1.000-1.030) 04/22/22 16:50 Urine Protein Negative (Negative) 04/22/22 16:50 Urine Glucose (UA) Negative (Negative) 04/22/22 16:50 Urine Ketones Trace (Negative) H 04/22/22 16:50 Urine Nitrite Negative (Negative) 04/22/22 16:50 Ur Leukocyte Esterase Negative (Negative) 04/22/22 16:50 Blood Type A Positive 04/22/22 16:19 Antibody Screen NEGATIVE 04/22/22 16:19 Electrocardiogram Date: 04/22/22 Findings: + NSR @ and + LBBB Echocardiogram Date: 03/14/22 EF: 55-60 LV Function: normal
[2022-04-23] MEDS ORDERED: DOXAZosin MESYLATE 4 MG TAB PO SCH (09:00)
--- NOTE | 2022-04-23 09:23 | Hospitalist Progress Note ---
Date of Service April 23, 2022 Assessment & Plan (1) Fracture of femoral neck, left: Plan: -Noted to have displaced left femoral neck fracture in the orthopedic clinic today and sent to the ED for admission -No acute trauma, fracture likely from reduced bone density from chronic prednisone therapy for RA -Pain control with tylenol 650 mg PO q6h, home po morphine prn for pain 1,2,3/10 and 1 mg IV Dilaudid q4h prn pain 4+/10 -CXR and EKG performed, chronic LBBB, appropriate risk for surgery -Orthopedics consult placed, touching base with Dr. Cary regarding anticoagulation with recently diagnosed PE's last month -Hgb 9.4 will trend in post-op period -PT and OT following surgery (2) Pulmonary emboli: Plan: -Was diagnosed last month, has been doing well on Eliquis -Oxygenating well on room air -Eliquis->Heparin gtt to be discontinued pre-op, with resumption of Eliquis when able (3) BPH (benign prostatic hyperplasia): Plan: -Continue Flomax (4) Chronic systolic heart failure: Plan: -Continue Entresto, Lasix, and Spironolactone (5) Anxiety: Plan: -Continue Buspar and diazepam (6) Hypertension: Plan: -Continue labetalol (7) Rheumatoid arthritis: Plan: -Continue prednisone for now -May require stress dosing in the perioperative period (8) GERD (gastroesophageal reflux disease): Plan: -Continue omeprazole (9) Chronic back pain: Plan: -See pain control regimen for left hip fracture Plan Full code N.p.o. for now with return to regular diet postoperatively Heparin drip turned off for impending surgery, will reevaluate postoperatively Med/surgical Admission and Anticipated Discharge Date Admission Date: April 22, 2022 Subjective Patient without any acute events overnight. He does endorse left hip pain improved with as needed pain medications. No other complaints including no shortness of breath, chest pain, abdominal pain, nausea. Review of Systems Review of Systems: All systems reviewed & are unremarkable except as noted in Subjective Physical Exam Constitutional: WD/WN, vitals as above Respiratory: normal respiratory effort, lungs clear to auscultation Cardiovascular: RRR, no murmur, no edema Gastrointestinal (Abdomen): normal bowel sounds, soft, nontender, no hepatosplenomegaly Skin: no rashes, warm and dry Psychiatric: A+Ox3, euthymic affect Results & Data Results & Data ([facility]) Vital Signs (Past 12 Hours) Vital Signs Temp Pulse Resp BP Pulse Ox O2 Del Method O2 Flow Rate 04/23/22 07:55 Nasal Cannula 1 04/23/22 07:37 36.8 C 67 18 104/61 97 Nasal Cannula 1.5 04/22/22 23:00 36.4 C L 73 18 116/69 98 Nasal Cannula 1 PG Care Time/CCT Total # of Minutes Spent Total Time Spent with Patient: Total time spent is greater than 50% in coordination of care (as documented) at patient's floor/unit and/or counseling patient: Coding Level of Care Code 95702 Subseq Hosp Care Lvl 3 Diagnoses Fracture of femoral neck, left S72.002A Pulmonary emboli I26.99 BPH (benign prostatic hyperplasia) N40.0 Chronic systolic heart failure I50.22 Anxiety F41.9 Hypertension I10 Rheumatoid arthritis M06.9 Rheumatoid arthritis location: unspecified site Rheumatoid factor presence: unspecified presence GERD (gastroesophageal reflux disease) K21.9 Chronic back pain M54.9; G89.29 (1) Rheumatoid arthritis Rheumatoid arthritis location: unspecified site Rheumatoid factor presence: unspecified presence Qualified Code(s): M06.9 - Rheumatoid arthritis, unspecified
[2022-04-23] MEDS: GABAPENTIN 300 MG CAP PO SCH ×3 (12:49→21:35)
--- NOTE | 2022-04-23 13:33 | Electrocardiogram Report ---
Test Reason : Blood Pressure : / mmHG Vent. Rate : 072 BPM Atrial Rate : 072 BPM P-R Int : 186 ms QRS Dur : 152 ms QT Int : 418 ms P-R-T Axes : 042 -38 016 degrees QTc Int : 457 ms Normal sinus rhythm Left axis deviation Left bundle branch block Abnormal ECG When compared with ECG of 14-MAR-2022 10:07, No significant change was found Confirmed by Zachary Arenas ([id number]) on 04/23/2022 12:57:09 PM Referred By: Everton Cary Confirmed By:Jose Arenas
[2022-04-23] MEDS ORDERED: VANCOMYCIN HCL 1,250 MG in SODIUM CHLORIDE 0.9% 250 ML IV ONE (13:45)
--- NOTE | 2022-04-23 13:59 | History & Physical Bridge Note ---
Date of Service April 23, 2022 History & Physical Bridge Note I have examined the patient, reviewed the History & Physical and in the interval since the performance of the History & Physical I have noted the following changes of clinical significance: no changes noted
[2022-04-23] MEDS ORDERED: MIDAZOLAM HCL 1 MG/ML 2ML VIAL ONE (14:22)
[2022-04-23] MEDS ORDERED: ONDANSETRON INJ 2 MG/ML 2 ML VIAL ONE ×2 (14:22→15:39)
[2022-04-23] MEDS ORDERED: EPINEPHrine INJ 1 MG/ML AMP ONE (14:43)
[2022-04-23] MEDS ORDERED: BUPIVACAINE 0.5 % 5 MG/1 ML MPF 30ML VIAL ONE (14:43)
[2022-04-23] MEDS: HYDROmorphone INJ 2 MG/ML SYR/VIAL IV PRN ×4 (14:43→17:58)
[2022-04-23] MEDS ORDERED: ePHEDrine sulfate 50 MG/ML AMP IV PRN (14:44)
[2022-04-23] MEDS ORDERED: ATROPINE SULFATE 0.1 MG/ML 10ML SYR IV PRN (14:44)
[2022-04-23] MEDS ORDERED: fentaNYL citrate 100 MCG/2 ML VIAL ONE ×2 (14:51→16:28)
[2022-04-23] MEDS ORDERED: TRANEXAMIC ACID / 0.7% NACL 1000MG/100ML BAG IV ONE (14:59)
[2022-04-23] MEDS ORDERED: ROCURONIUM BROMIDE 10 MG/ML 5 ML VIAL IV ONE (15:39)
[2022-04-23] MEDS ORDERED: HYDROCORTISONE SOD SUCCINATE 100 MG/2 ML VIAL ONE (15:39)
[2022-04-23] MEDS ORDERED: LIDOCAINE 2% MPF LOCAL 5 ML VIAL INFIL ONE (15:39)
[2022-04-23] MEDS ORDERED: PROPOFOL IV EMULSION 10 MG/ML 20 ML VIAL IV ONE (15:39)
[2022-04-23] MEDS ORDERED: ePHEDrine sulfate 50 MG/ML AMP ONE (15:39)
[2022-04-23] MEDS ORDERED: VASOPRESSIN 20 UNIT/ML VIAL ONE (15:40)
[2022-04-23] MEDS ORDERED: GLYCOPYRROLATE 0.2 MG/ML VIAL ONE (16:16)
[2022-04-23] MEDS ORDERED: NEOSTIGMINE METHYLSULFATE 1 MG/ML 10ML VIAL ONE (16:16)
--- NOTE | 2022-04-23 16:40 | Operative Report ---
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 I identified the patient and participated in the time-out.: Yes Procedure Operation Date: 04/23/22 07:40 Actual Procedures p Left Total Hip Arthroplasty--Uncemented(Left) Left chronic hip abductor repair - Luis Fernando Stringer MD Surgeon Luis Fernando Stringer MD Field Merchandiser Jagdeep Kennedy PA-C Estimated Blood Loss 200 Findings Consistent with Post-Op Diagnosis Specimens Left femoral head sent for pathology Anesthesia Type General Complications none Disposition Accompanied Patient To Recovery: No Indications Patient is 61-year-old gentleman with multiple medical comorbidities including underlying rheumatoid disease. He underwent a right hip replacement in the past is done well from this. He has a history of left hip arthritis and was katherine eduled to have his hip replaced next year. He developed a markedly increased hip and leg pain over the past several weeks. Did have an intra-articular hip joint injection a week ago without any relief. He presented to clinic yesterday with a displaced femoral neck fracture. Patient was admitted, medically optimized and indicated for total hip arthroplasty. Description of Procedure Operative implants consist of: 1. Biomet G7 size 54 mm acetabular shell. 2. 6.5 cancellous acetabular screws 1 of 35 mm length 125 mm length. 3. Volcano hole oracle database manager. 4. Highly cross-linked polyethylene liner with a 54 mm outer diameter and 40 mm diameter. 5. DePuy Karaya size 11 KLA femoral stem. 6. +5/40 mm ceramic articular ball. The patient was taken the operating, identified, and placed on the operating table supine position protectors were properly padded. IV antibiotics tried by anesthesia team. General anesthetic was implemented. The patient did receive preoperative vancomycin due to his history of a C. difficile infection in the past. He is also on a blood thinner and therefore a general anesthetic was implemented. The patient was then placed in the right lateral decubitus position. Axillary roll was placed. A Stulberg hip positioner was used for positioning. The left hip was then scrubbed with Hibiclens, prepped with ChloraPrep and draped in usual sterile fashion. A posterior lateral approach to the left hip was then performed through a curvilinear incision centered over the greater trochanter. Sharp dissection was carried through subcutaneous tissue down below the IT band gluteal fascia the IT band gluteal fascia incised longitudinally in line with skin incision. The underlying greater bursa was excised. Of note, he is anterior hip abductors were avulsed chronically it. The posterior hip external rotators and the piriformis muscles were then tagged and taken off the posterior aspect hip joint capsule very carefully. Great care was taken throughout the procedure protect the sciatic nerve at all times. Posterior capsulotomy was then performed leaving a large flap for later repair. Hip was internally rotated. An osteotomy cut was made about a centimeter above the lesser trochanter which was below the level of the fracture site. The femoral head was a very arthritic. It was removed from the acetabulum. All extraneous and additional fracture pieces were removed. The femur was retracted anteriorly. Attention then drawn the acetabulum. The acetabular labrum was excised. The pulmonary fat was excised. Sequential reaming the acetabular was then performed begin with size 45 and progressing up to 53 reamer. I did ream a little bit with a 54 reamer and then placed a 54 mm Biomet G7 acetabular shell in about 40 degrees lateral opening and 20 degrees of anteversion. I really wanted to make sure this is anteverted to maximize his stability. Was fixed with two 6.5 cancellous acetabular screws. A trial liner was placed. Attention then drawn the femur. The proximal femur was entered with a Fitwall cutter followed by canal finder. I broached begin the size 8 and progressing up to 11. Got excellent fit at 11. I will trialed the hip and I felt the +5 articular ball provided most stability and appropriate soft tissue tension. It was not excessively tight at all and was fully stable. I did elect to place a lip of the acetabulum inferior and posterior to maximize stability. All trial implants were removed. Volcano hole oracle database manager was placed. Highly cross- linked polyethylene liner with a palm placed inferior and posterior was impacted in position. DePuy size 11 KLA femoral stem was impacted in position. A +5/40 mm ceramic articular ball was placed. Hip was located once again found to be stable. Attention drawn toward closing. Wounds irrigated cosigns pulsatile lavage solution. I did inject locally with 60 cc of half percent Marcaine with epinephrine. The posterior capsule and external rotators were repaired through drill holes in the posterior trochanter with #2 Tycron suture[address] I did place a single Biomet suture anchor with 2 sutures on it in the lateral trochanter. I then repaired the anterior and superior anterior hip abductors back to this. This was a juggernaut suture anchor. The IT band gluteal fascia then closed in 1 PDS suture in running fashion the subcutaneous tissues then closed with 2 layers the deep layer #1 Vicryl suture and subcutaneous tissue with 2 Dexon suture in a buried interrupted fashion. Skin was closed with skin travis. Legs then cleaned and dried a sterile dressing was Xeroform, 4 fours, sterile ABD pad and foam tape was applied. The patient then brought Shin incision transferred to the recovery room in stable condition. Patient tolerated procedure well and there were no complications. Jagdeep Kennedy, my physician server service assistant, was present for the entire procedure. His assistance was essential and required for appropriate patient positioning, prepping and draping, surgical exposure, performing the technical details of the operation, placement the implants, closure of the wound, and placement of the sterile bandage. I attest to the content of the Intraoperative Record and any orders documented therein. Any exceptions are noted below.
[2022-04-23] MEDS: fentaNYL citrate 100 MCG/2 ML VIAL IV PRN ×4 (16:48→17:03)
--- NOTE | 2022-04-23 17:07 | XRay Report ---
XR hip LT min 2V HISTORY: 61 years-old Male Post-Operative implant position left hip total joint arthroplasty COMPARISON: Hip radiographs 04/22/2022 TECHNIQUE: 2 views of the left hip FINDINGS: Left hip total joint arthroplasty with overlying skin travis, expected postoperative soft tissue swe lling with deep tissue air. No acute fracture, alignment or unexpected opaque foreign body. Right hip total joint arthroplasty with lumbar spinal fusion hardware also noted. IMPRESSION: Left hip total joint arthroplasty with expected postoperative changes. ACT 112: Negative or not required by law. The above report was generated using voice recognition software. It may contain grammatical, syntax o r spelling errors. Electronically signed by: Jose E White M.D. 04/23/2022 5:06 PM
[2022-04-23] MEDS ORDERED: KETOROLAC 30 MG/ML VIAL IV ONE (18:03)
[2022-04-23] MEDS ORDERED: KETOROLAC 30 MG/ML VIAL ONE (18:04)
--- NOTE | 2022-04-23 19:08 | Anesthesiology Progress Note ---
Date of Service April 23, 2022 Anesthesia Post Procedure Vital Signs Vital Signs: Temp Pulse Resp BP Pulse Ox O2 Del Method O2 Flow Rate 04/23/22 18:30 36.5 C 55 L 14 121/63 96 Nasal Cannula 2 04/23/22 18:20 56 L 21 126/66 95 Nasal Cannula 2 04/23/22 18:10 63 15 141/69 H 97 Nasal Cannula 2 04/23/22 18:00 56 L 17 137/72 96 Nasal Cannula 2 04/23/22 17:50 59 L 17 138/66 96 Nasal Cannula 2 04/23/22 17:40 65 17 142/67 H 98 Nasal Cannula 2 04/23/22 17:30 68 15 142/69 H 96 Nasal Cannula 2 04/23/22 17:20 68 20 148/76 H 98 Nasal Cannula 2 04/23/22 17:10 76 14 143/70 H 95 Oxymask 3 04/23/22 16:50 65 18 149/74 H 98 Oxymask 6 04/23/22 17:00 63 15 148/73 H 100 Oxymask 6 04/23/22 16:41 36.1 C L 71 20 149/73 H 99 Oxymask 6 04/23/22 13:38 36.7 C 62 20 113/64 93 Room Air 04/23/22 07:55 Nasal Cannula 1 04/23/22 07:37 36.8 C 67 18 104/61 97 Nasal Cannula 1.5 04/22/22 23:00 36.4 C L 73 18 116/69 98 Nasal Cannula 1 Pain Intensity Right Hip: Pain Intensity: 5 Left Hip: Pain Intensity: 9 Transfer of Care Handoff Completed per policy Notes Mental Status: alert / awake / arousable and participated in evaluation Patient Amnestic to Procedure: Yes Nausea / Vomiting: adequately controlled Pain: adequately controlled Airway Patency, RR, SpO2: stable & adequate BP & HR: stable & adequate Hydration State: stable & adequate Anesthetic Complications: no major complications apparent
[2022-04-23] MEDS: SODIUM CHLORIDE 0.9% 1000ML 1,000 ML IV SCH (19:33)
[2022-04-23] MEDS: VALSARTAN/SACUBITRIL 103/97MG TAB PO SCH (21:34)
[2022-04-23] MEDS: DULoxetine HCL 30 MG CAP PO SCH (21:36)
[2022-04-24] MEDS: HYDROmorphone INJ 1 MG/ML SYRINGE IV PRN ×3 (02:17→15:55)
[2022-04-24] MEDS: ACETAMINOPHEN 325 MG TAB PO SCH ×3 (05:32→16:38)
[2022-04-24] MEDS ORDERED: VANCOMYCIN HCL 1,250 MG in SODIUM CHLORIDE 0.9% 250 ML IV SCH (06:00)
[2022-04-24] MEDS ORDERED: VANCOMYCIN HCL 1,000 MG/270 ML BAG IV SCH (06:00)
--- NOTE | 2022-04-24 07:49 | Progress Notes ---
DATE OF NOTE: 04/24/2022. SUBJECTIVE: A 61-year-old gentleman now postoperative day 1 from a left total hip replacement done f or a fracture. He is doing pretty well this morning. Pain seems to be improved. No new complaints. OBJECTIVE: VITAL SIGNS: Temperature 36.5. Vital signs are stable. GENERAL: Shows a pleasant, elderly male. He is lying in bed and looks comfortable. He is awake, al ert and oriented. EXTREMITIES: Examination of the left hip reveals the leg to be well aligned. Leg lengths are equal. Dressing is clean, dry and intact. He can dorsiflex and plantarflex his foot appropriately. He is neurologically intact. LABORATORY DATA: Labs are pending from this morning. ASSESSMENT: A 61-year-old gentleman with multiple medical comorbidities along with a relatively rece nt pulmonary embolism, now postoperative day 1 from a left total hip replacement done for a fracture with some underlying rheumatoid arthritis. Orthopedically, he is doing pretty well. He has got mult iple medical comorbidities, which need to be managed. A very difficult situation with his relatively recent PE. PLAN: 1. DVT prophylaxis includes thigh-high TEDs, SCDs and we will start him back on anticoagulation toda y 24 hours postop. We will start him at a prophylactic dose for 24 hours and then can probably bump him up to a regular dose 48 hours after surgery. 2. PT/OT. He can fully weightbear as tolerated in the left leg. He does need to obey hip precautio ns. 3. Pain control, seems to be doing pretty well with current pain regimen. 4. Medical management as per the medicine service. 5. Disposition: He is hoping to go home with home health. We will see how he does in therapy. He might need a rehab stay. I need to see him back in 2-3 weeks out from surgery date. Any orthopedic questions can be directed to me at [phone]. Job ID: [id number]
[2022-04-24] MEDS: SODIUM CHLORIDE 0.9% 1000ML 1,000 ML IV SCH (07:58)
[2022-04-24 08:22] LABS: Basophils # (auto) 0.02 K/uL (0-0.2); Basophils % (auto) 0.2 %; Eosinophils # (auto) 0.03 K/uL (0-0.50); Eosinophils % (auto) 0.4 %; Hematocrit (blood only) 28.6 % (40.1-51.0); Hemoglobin 9.2 g/dl (14.0-18.0); Immature Granulocytes # (auto) 0.04 K/uL (0.00-0.02); Immature Granulocytes % (auto) 0.5 %; Lymphocytes % (auto) 10.5 %; Mean Corpuscular Hemoglobin 30.7 pg (25.0-34.0); Mean Corpuscular Hgb Conc 32.2 g/dL (32.0-36.0); Mean Corpuscular Volume 95.3 fL (80.0-100.0); Mean Platelet Volume 9.6 fL (9.4-12.4); Monocytes # (auto) 1.03 K/uL (0.24-0.82); Neutrophils # (auto) 6.54 K/uL (1.4-6.5); Neutrophils % (auto) 76.4 %; Platelet Count 246 K/uL (130-400); RDW Coefficient of Variation 13.1 % (11.5-14.5); RDW Standard Deviation 46.3 fL (36.4-46.3); White Blood Count 8.56 K/ul (4.8-10.8)
[2022-04-24] MEDS: predniSONE 5 MG TAB PO SCH (08:30)
[2022-04-24] MEDS: MULTIVITAMIN TAB PO SCH (08:30)
[2022-04-24] MEDS: TAMSULOSIN HCL 0.4 MG CAP PO SCH (08:30)
[2022-04-24] MEDS: busPIRone 15 MG TAB PO SCH ×2 (08:31→21:35)
[2022-04-24] MEDS: FERROUS SULFATE 325 MG TAB PO SCH (08:31)
[2022-04-24] MEDS: LABETALOL HCL 100 MG TAB PO SCH ×2 (08:31→21:35)
[2022-04-24] MEDS: MEMANTINE HCL 10 MG TAB PO SCH ×2 (08:31→21:36)
[2022-04-24] MEDS: PANTOprazole 40 MG TAB PO SCH ×2 (08:31→21:35)
[2022-04-24] MEDS: FUROSEMIDE 20 MG TAB PO SCH (08:31)
[2022-04-24] MEDS: SPIRONOLACTONE 25 MG TAB PO SCH (08:31)
[2022-04-24] MEDS: GABAPENTIN 100 MG CAP PO SCH (08:31)
[2022-04-24 08:48] LABS: Albumin Globulin Ratio 1.4 (0.9-2); Albumin Level 2.9 gm/dl (3.4-5.0); BUN Creatinine Ratio 24.7 (10-20); Bilirubin,Total 0.6 mg/dl (0.2-1.0); Calcium 7.9 mg/dl (8.5-10.1); Creatinine Clr Calc Pharmacy 73.7 ml/min; Est GFR (African American) 100.9 ml/min; Est GFR (Non-African American) 87.1 ml/min; Globulin 2.1 gm/dl (2.5-4.0); Potassium 4.5 mmol/L (3.5-5.1)
[2022-04-24] MEDS ORDERED: CHOLECALCIFEROL 5,000 UNITS 125 MCG TAB PO SCH (09:00)
[2022-04-24] MEDS: VALSARTAN/SACUBITRIL 103/97MG TAB PO SCH ×2 (09:14→21:37)
--- NOTE | 2022-04-24 09:14 | Hospitalist Progress Note ---
Date of Service April 24, 2022 Assessment & Plan (1) Fracture of femoral neck, left: Plan: -Noted to have displaced left femoral neck fracture in the orthopedic clinic today and sent to the ED for admission -No acute trauma, fracture likely from reduced bone density from chronic prednisone therapy for RA -Pain control with scheduled Tylenol 1000mg q8h, home po morphine prn for pain 1,2,3/10 and 1 mg IV Dilaudid q4h prn pain 4+/10 -CXR and EKG performed, chronic LBBB, appropriate risk for surgery -S/p ORIF by Dr. Stringer on 04/23 -Hgb stable 9.2. -PT and OT to follow post-op, with dispo recs. (2) Pulmonary emboli: Plan: -Was diagnosed last month, has been doing well on Eliquis -Oxygenating well on room air -Eliquis->Heparin gtt to be discontinued pre-op, with resumption of Eliquis today at half dose and increase tomorrow to full dosing (3) BPH (benign prostatic hyperplasia): Plan: -Continue Flomax (4) Chronic systolic heart failure: Plan: -Continue Entresto, Lasix, and Spironolactone (5) Anxiety: Plan: -Continue Buspar and diazepam (6) Hypertension: Plan: -Continue labetalol (7) Rheumatoid arthritis: Plan: -Continue prednisone (8) GERD (gastroesophageal reflux disease): Plan: -Continue omeprazole (9) Chronic back pain: Plan: -See pain control regimen for left hip fracture Plan Full code Regular diet Eliquis BID Med/surgical Admission and Anticipated Discharge Date Admission Date: April 22, 2022 Subjective Overnight: Vitals signs normal, afebrile, saturating well on room air Complaints of left hip pain, relived with prns but does not last long. No chest pain, SOB. Review of Systems Review of Systems: All systems reviewed & are unremarkable except as noted in Subjective Physical Exam Constitutional: WD/WN, vitals as above Respiratory: normal respiratory effort, lungs clear to auscultation Cardiovascular: RRR, no murmur, no edema Gastrointestinal (Abdomen): normal bowel sounds, soft, nontender, no hepatosplenomegaly Skin: no rashes, warm and dry Psychiatric: A+Ox3, euthymic affect Results & Data Results & Data ([place]) Vital Signs (Past 12 Hours) Vital Signs Temp Pulse Resp BP Pulse Ox O2 Del Method O2 Flow Rate 04/24/22 08:26 84 132/70 98 Room Air 04/24/22 06:51 36.5 C 77 18 118/70 97 Nasal Cannula 2 04/24/22 02:20 36.4 C L 85 18 123/72 99 Nasal Cannula 2 04/23/22 22:01 36.7 C 68 16 146/82 H 99 Nasal Cannula 2 PG Care Time/CCT Total # of Minutes Spent Total Time Spent with Patient: Total time spent is greater than 50% in coordination of care (as documented) at patient's floor/unit and/or counseling patient: Coding Level of Care Code 13665 Subseq Hosp Care Lvl 3 Diagnoses Fracture of femoral neck, left S72.002A Pulmonary emboli I26.99 BPH (benign prostatic hyperplasia) N40.0 Chronic systolic heart failure I50.22 Anxiety F41.9 Hypertension I10 Rheumatoid arthritis M06.9 Rheumatoid arthritis location: unspecified site Rheumatoid factor presence: unspecified presence GERD (gastroesophageal reflux disease) K21.9 Chronic back pain M54.9; G89.29 (1) Rheumatoid arthritis Rheumatoid arthritis location: unspecified site Rheumatoid factor presence: unspecified presence Qualified Code(s): M06.9 - Rheumatoid arthritis, unspecified
[2022-04-24] MEDS: MoRPHine SULFATE IR 15 MG TAB (IMMEDIATE RELEASE) PO PRN ×2 (10:54→19:33)
[2022-04-24] MEDS: GABAPENTIN 300 MG CAP PO SCH ×3 (12:40→21:34)
[2022-04-24] MEDS: APIXABAN 2.5 MG TAB PO SCH (16:37)
[2022-04-24] MEDS ORDERED: APIXABAN 2.5 MG TAB PO SCH (17:00)
[2022-04-24] MEDS: DULoxetine HCL 30 MG CAP PO SCH (21:36)
[2022-04-24] MEDS: ACETAMINOPHEN 500 MG TAB PO SCH (21:40)
[2022-04-25] MEDS: HYDROmorphone INJ 1 MG/ML SYRINGE IV PRN ×6 (00:04→23:05)
[2022-04-25] MEDS: MoRPHine SULFATE IR 15 MG TAB (IMMEDIATE RELEASE) PO PRN ×3 (02:24→20:24)
[2022-04-25] MEDS: POLYETHYLENE (MIRALAX) 17 GM PACK PO SCH ×4 (05:37→23:05)
[2022-04-25] MEDS: ACETAMINOPHEN 500 MG TAB PO SCH ×3 (05:41→20:25)
[2022-04-25] MEDS: APIXABAN 2.5 MG TAB PO SCH (06:04)
--- NOTE | 2022-04-25 09:01 | Hospitalist Progress Note ---
Date of Service April 25, 2022 Assessment & Plan (1) Fracture of femoral neck, left: Plan: -Noted to have displaced left femoral neck fracture in the orthopedic clinic today and sent to the ED for admission -No acute trauma, fracture likely from reduced bone density from chronic prednisone therapy for RA -Pain control with scheduled Tylenol 1000mg q8h, home po morphine prn for pain 1,2,3/10 and 1 mg IV Dilaudid q4h prn pain 4+/10 -Miralax q6h for bowel regimen -CXR and EKG performed, chronic LBBB, appropriate risk for surgery -S/p ORIF by Dr. Stringer on 04/23 -Hgb stable 9.2 today -PT and OT recommend rehab; [facility] awaiting beds (2) Pulmonary emboli: Plan: -Was diagnosed last month, has been doing well on Eliquis -Oxygenating well on room air -Eliquis->Heparin gtt to be discontinued pre-op, with Eliquis increased today to full dosing 5mg BID (3) BPH (benign prostatic hyperplasia): Plan: -Continue Flomax (4) Chronic systolic heart failure: Plan: -Entresto, lasix, labetalol held today given BP 100s systolic before AM meds -Suspect due to increased opiate use from baseline, continue to monitor and add home meds back as able (5) Anxiety: Plan: -Continue Buspar and diazepam (6) Hypertension: Plan: -Hold labetalol (7) Rheumatoid arthritis: Plan: -Continue prednisone (8) GERD (gastroesophageal reflux disease): Plan: -Continue PPI (9) Chronic back pain: Plan: -See pain control regimen for left hip fracture Plan Full code Regular diet Eliquis 5mg BID Med/surgical Admission and Anticipated Discharge Date Admission Date: April 22, 2022 Subjective No overnight events. Complaints of pain in left hip, improved with prn pain medications. No nausea, dizziness, chest pain, abdominal pain. BM today. Review of Systems Review of Systems: All systems reviewed & are unremarkable except as noted in Subjective Physical Exam Constitutional: WD/WN, vitals as above Respiratory: normal respiratory effort, lungs clear to auscultation Cardiovascular: RRR, no murmur, no edema Gastrointestinal (Abdomen): normal bowel sounds, soft, nontender, no hepatosplenomegaly Skin: no rashes, warm and dry Psychiatric: A+Ox3, euthymic affect Results & Data Results & Data ([facility]) Vital Signs (Past 12 Hours) Vital Signs Temp Pulse Resp BP Pulse Ox O2 Del Method 04/25/22 07:27 36.7 C 76 16 102/62 93 Room Air 04/24/22 21:32 36.7 C 78 18 109/58 L 94 Room Air PG Care Time/CCT Total # of Minutes Spent Total Time Spent with Patient: Total time spent is greater than 50% in coordination of care (as documented) at patient's floor/unit and/or counseling patient: Coding Level of Care Code 36834 Subseq Hosp Care Lvl 3 Diagnoses Fracture of femoral neck, left S72.002A Pulmonary emboli I26.99 BPH (benign prostatic hyperplasia) N40.0 Chronic systolic heart failure I50.22 Anxiety F41.9 Hypertension I10 Rheumatoid arthritis M06.9 Rheumatoid arthritis location: unspecified site Rheumatoid factor presence: unspecified presence GERD (gastroesophageal reflux disease) K21.9 Chronic back pain M54.9; G89.29 (1) Rheumatoid arthritis Rheumatoid arthritis location: unspecified site Rheumatoid factor presence: unspecified presence Qualified Code(s): M06.9 - Rheumatoid arthritis, unspecified
[2022-04-25] MEDS: FUROSEMIDE 20 MG TAB PO SCH (09:13)
[2022-04-25] MEDS: SPIRONOLACTONE 25 MG TAB PO SCH (09:13)
[2022-04-25] MEDS: predniSONE 5 MG TAB PO SCH (09:22)
[2022-04-25] MEDS: GABAPENTIN 100 MG CAP PO SCH (09:22)
[2022-04-25] MEDS: MULTIVITAMIN TAB PO SCH (09:22)
[2022-04-25] MEDS: FERROUS SULFATE 325 MG TAB PO SCH (09:22)
[2022-04-25] MEDS: busPIRone 15 MG TAB PO SCH ×2 (09:22→20:25)
[2022-04-25] MEDS: MEMANTINE HCL 10 MG TAB PO SCH ×2 (09:22→20:26)
[2022-04-25] MEDS: TAMSULOSIN HCL 0.4 MG CAP PO SCH (09:22)
[2022-04-25] MEDS: PANTOprazole 40 MG TAB PO SCH ×2 (09:22→20:26)
[2022-04-25 09:30] LABS: Hemoglobin 9.2 g/dl (14.0-18.0); Mean Corpuscular Hgb Conc 32.9 g/dL (32.0-36.0); Mean Corpuscular Volume 94.3 fL (80.0-100.0); Platelet Count 245 K/uL (130-400); RDW Coefficient of Variation 13.7 % (11.5-14.5); RDW Standard Deviation 47.1 fL (36.4-46.3); Red Blood Count 2.97 M/uL (4.63-6.08); White Blood Count 7.52 K/ul (4.8-10.8)
[2022-04-25 10:32] LABS: Albumin Globulin Ratio 1.3 (0.9-2); Albumin Level 2.9 gm/dl (3.4-5.0); BUN Creatinine Ratio 15.7 (10-20); Bilirubin,Total 0.4 mg/dl (0.2-1.0); Est GFR (African American) 105.5 ml/min; Globulin 2.2 gm/dl (2.5-4.0); Total Protein 5.1 gm/dl (6.0-8.3)
[2022-04-25] MEDS: GABAPENTIN 300 MG CAP PO SCH ×3 (12:04→20:25)
--- NOTE | 2022-04-25 13:23 | Progress Notes ---
DATE OF PROGRESS NOTE: 04/25/2022 SUBJECTIVE: A 61-year-old gentleman with multiple medical comorbidities, postop day 2 from a left un cemented total hip replacement for fracture. He is doing okay. He was up quite a bit earlier this m orning and having quite a bit of discomfort now. Just leg pain. No chest pain or shortness of breat h. Not feeling dizzy or lightheaded. OBJECTIVE: VITAL SIGNS: Temperature 36.7. Vital signs are stable. GENERAL: Shows a pleasant middle-aged male. He is sitting up in bed and looks reasonably comfortabl e. EXTREMITIES: Examination of the left hip reveals the leg to be well aligned. Dressing is clean, dry , and intact. Hip is located. NEUROLOGIC: He is neurologically intact. LABORATORY DATA: Hemoglobin 9.2. Hematocrit 28.0. Electrolytes are stable. ASSESSMENT: A 61-year-old gentleman postoperative with underlying rheumatoid disease and multiple me dical comorbidities, postop day 2 from a left uncemented hip replacement for fracture. Orthopedicall y, he is doing reasonably well. PLAN: 1. DVT prophylaxis to include thigh-high TEDs, SCDs, and back on his Eliquis. He is on a prophylact ic dose now. He can be bumped up to a full dose starting tomorrow. 2. PT/OT. He can fully weightbear as tolerated in left lower extremity. Does need to obey hip prec autions. 3. Pain control, doing okay with current pain regimen. 4. Disposition: He is orthopedically okay for discharge any time. He is hoping to go home with [facility], although I think he would probably be better served by a rehab stay. We will see how parviz rivera goes. I need to see him back in 2 to 3 weeks out from surgery date. Any orthopedic questions can be directed to me at [phone]. Job ID: [id number]
[2022-04-25] MEDS: DULoxetine HCL 30 MG CAP PO SCH (20:25)
[2022-04-25] MEDS: APIXABAN 5 MG TABLET PO SCH (20:34)
[2022-04-26] MEDS: HYDROmorphone INJ 1 MG/ML SYRINGE IV PRN ×2 (02:57→07:37)
[2022-04-26] MEDS: POLYETHYLENE (MIRALAX) 17 GM PACK PO SCH ×3 (05:23→17:04)
[2022-04-26] MEDS: MoRPHine SULFATE IR 15 MG TAB (IMMEDIATE RELEASE) PO PRN (05:24)
[2022-04-26] MEDS: ACETAMINOPHEN 500 MG TAB PO SCH ×3 (05:24→22:37)
[2022-04-26 08:25] LABS: Basophils # (auto) 0.03 K/uL (0-0.2); Basophils % (auto) 0.4 %; Eosinophils # (auto) 0.37 K/uL (0-0.50); Hemoglobin 8.9 g/dl (14.0-18.0); Immature Granulocytes # (auto) 0.03 K/uL (0.00-0.02); Immature Granulocytes % (auto) 0.4 %; Lymphocytes # (auto) 1.34 K/uL (1.2-3.4); Lymphocytes % (auto) 18.2 %; Mean Corpuscular Hemoglobin 30.7 pg (25.0-34.0); Mean Corpuscular Volume 93.1 fL (80.0-100.0); Mean Platelet Volume 9.6 fL (9.4-12.4); Monocytes # (auto) 0.85 K/uL (0.24-0.82); Monocytes % (auto) 11.5 %; Neutrophils # (auto) 4.76 K/uL (1.4-6.5); Neutrophils % (auto) 64.5 %; Platelet Count 251 K/uL (130-400); RDW Coefficient of Variation 13.7 % (11.5-14.5); RDW Standard Deviation 46.5 fL (36.4-46.3); White Blood Count 7.38 K/ul (4.8-10.8)
[2022-04-26] MEDS ORDERED: HYDROmorphone INJ 1 MG/ML SYRINGE IV PRN (08:48)
[2022-04-26] MEDS ORDERED: MoRPHine SULFATE IR 15 MG TAB (IMMEDIATE RELEASE) PO PRN ×4 (08:49→20:46)
--- NOTE | 2022-04-26 08:52 | Hospitalist Progress Note ---
Date of Service April 26, 2022 Assessment & Plan (1) Fracture of femoral neck, left: Plan: -Noted to have displaced left femoral neck fracture in the orthopedic clinic and sent to the ED for admission -No acute trauma, fracture likely from reduced bone density from chronic prednisone therapy for RA -CXR and EKG performed, chronic LBBB, appropriate risk for surgery -S/p ORIF by Dr. Stringer on 04/23 -Hgb stable 8.9 today -Pain control with scheduled Tylenol 1000mg q8h, resume home medication (morphine controlled release 30mg q8h scheduled), with morphine IR 30mg q6h as needed for breakthrough pain -Miralax q6h for bowel regimen -PT and OT recommend rehab; [facility] awaiting beds, will accept when bed available (2) Pulmonary emboli: Plan: -Was diagnosed last month, has been doing well on Eliquis -Oxygenating well on room air -Eliquis 5mg BID for PE and for DVT ppx post-surgery (3) BPH (benign prostatic hyperplasia): Plan: -Continue Flomax (4) Chronic systolic heart failure: Plan: -Entresto,Lasix, Labetalol held again today given BP 100s systolic before AM meds -Suspect due to increased opiate use from baseline, continue to monitor and add home meds back as able (5) Anxiety: Plan: -Continue Buspar and diazepam (6) Hypertension: Plan: -Hold labetalol (7) Rheumatoid arthritis: Plan: -Continue prednisone (8) GERD (gastroesophageal reflux disease): Plan: -Continue PPI (9) Chronic back pain: Plan: -See pain control regimen for left hip fracture Plan Full code Regular diet Eliquis 5mg BID Med/surgical Admission and Anticipated Discharge Date Admission Date: April 22, 2022 Subjective No acute events overnight. BP continues to be in low 100s systolic, holding labetalol, Lasix, and Entresto as of yesterday. Has not received home pain medications, patient has been favoring IV Dilaudid. At home is on MS Contin 30mg q8h with morphine sulfate IR 30mg q6h as needed for breakthrough pain. Had just had PT when I saw him this morning. Told me that he has a chronic left foot drop since a previous back surgery which makes ambulation more difficult right now. In some pain at left hip at time of interview. No complaints of chest pain, SOB, abdominal pain, nausea,dizziness. No constipation. Review of Systems Review of Systems: All systems reviewed & are unremarkable except as noted in Subjective Physical Exam Constitutional: WD/WN, vitals as above Respiratory: normal respiratory effort, lungs clear to auscultation Cardiovascular: RRR, no murmur, no edema Gastrointestinal (Abdomen): normal bowel sounds, soft, nontender, no hepatosplenomegaly Skin: no rashes, warm and dry Psychiatric: A+Ox3, euthymic affect Results & Data Results & Data ([facility]) Vital Signs (Past 12 Hours) Vital Signs Temp Pulse Resp BP Pulse Ox O2 Del Method 04/26/22 07:13 36.7 C 85 16 129/77 94 Room Air 04/25/22 23:15 36.8 C 82 14 120/68 94 Room Air PG Care Time/CCT Total # of Minutes Spent Total Time Spent with Patient: Total time spent is greater than 50% in coordination of care (as documented) at patient's floor/unit and/or counseling patient: Coding Level of Care Code 70869 Subseq Hosp Care Lvl 3 Diagnoses Fracture of femoral neck, left S72.002A Pulmonary emboli I26.99 BPH (benign prostatic hyperplasia) N40.0 Chronic systolic heart failure I50.22 Anxiety F41.9 Hypertension I10 Rheumatoid arthritis M06.9 Rheumatoid arthritis location: unspecified site Rheumatoid factor presence: unspecified presence GERD (gastroesophageal reflux disease) K21.9 Chronic back pain M54.9; G89.29 (1) Rheumatoid arthritis Rheumatoid arthritis location: unspecified site Rheumatoid factor presence: unspecified presence Qualified Code(s): M06.9 - Rheumatoid arthritis, unspecified
--- NOTE | 2022-04-26 08:57 | Progress Notes ---
DATE OF NOTE: 04/26/2022 SUBJECTIVE: A 61-year-old gentleman now postop day 3 from a left uncemented total hip replacement do ne for a fracture. He is doing okay. Again, a little bit better daily. Pain is a little bit better , but still painful with motion. He has resorted to going to rehabilitation. No chest pain or short ness of breath. OBJECTIVE: VITAL SIGNS: Temperature 36.7. Vital signs are stable. GENERAL: Shows a pleasant, elderly male. He is sitting up in bed and looks pretty comfortable this morning. EXTREMITIES: Examination of the left hip reveals the dressing to be clean, dry and intact. Thigh is soft and supple. Leg lengths were equal. NEUROLOGIC: He is neurologically intact. LABORATORY DATA: Hemoglobin 8.9. Hematocrit 27.0. Electrolytes not checked. ASSESSMENT: A 61-year-old gentleman with multiple medical comorbidities. Postop day 3 from a left t otal hip replacement done for a fracture. He is getting better daily. I do think rehabilitation is his best option. I think it is going to be hard for him to go home. PLAN: 1. DVT prophylaxis includes thigh-high TEDs, SCDs and back on his Eliquis. He can go back to regula r dose at this time. 2. PT/OT. He can fully weightbear as tolerated in the left leg. Does need to obey hip precautions. 3. Pain control, doing okay with current pain regimen. 4. Disposition. I think he is going to need a brief rehab stay or snf facility stay. Bill means is orthopedically okay for discharge any time. I need to see him back in 2-3 weeks out from surger y date. Any orthopedic questions can be directed to me at [phone]. Job ID: [id number]
[2022-04-26] MEDS: PANTOprazole 40 MG TAB PO SCH ×2 (09:27→20:09)
[2022-04-26] MEDS: FERROUS SULFATE 325 MG TAB PO SCH (09:27)
[2022-04-26] MEDS: TAMSULOSIN HCL 0.4 MG CAP PO SCH (09:27)
[2022-04-26] MEDS: APIXABAN 5 MG TABLET PO SCH ×2 (09:27→20:09)
[2022-04-26] MEDS: GABAPENTIN 100 MG CAP PO SCH (09:27)
[2022-04-26] MEDS: predniSONE 5 MG TAB PO SCH (09:27)
[2022-04-26] MEDS: MULTIVITAMIN TAB PO SCH (09:27)
[2022-04-26] MEDS: busPIRone 15 MG TAB PO SCH ×2 (09:28→20:08)
[2022-04-26] MEDS: MEMANTINE HCL 10 MG TAB PO SCH ×2 (09:28→20:08)
[2022-04-26] MEDS: FUROSEMIDE 20 MG TAB PO SCH (09:48)
[2022-04-26] MEDS: SPIRONOLACTONE 25 MG TAB PO SCH (10:05)
[2022-04-26] MEDS: GABAPENTIN 300 MG CAP PO SCH ×3 (12:40→20:09)
[2022-04-26] MEDS: MoRPHine SULFATE CR 15 MG TABCR PO SCH ×2 (15:36→23:30)
[2022-04-26] MEDS: DULoxetine HCL 30 MG CAP PO SCH (20:09)
[2022-04-27] MEDS: POLYETHYLENE (MIRALAX) 17 GM PACK PO SCH (00:04)
[2022-04-27] MEDS: ACETAMINOPHEN 500 MG TAB PO SCH (05:22)
[2022-04-27] MEDS: MoRPHine SULFATE CR 15 MG TABCR PO SCH (07:34)
[2022-04-27] MEDS: busPIRone 15 MG TAB PO SCH (08:50)
[2022-04-27] MEDS: MULTIVITAMIN TAB PO SCH (08:50)
[2022-04-27] MEDS: GABAPENTIN 100 MG CAP PO SCH (08:51)
[2022-04-27] MEDS: SPIRONOLACTONE 25 MG TAB PO SCH (08:51)
[2022-04-27] MEDS: TAMSULOSIN HCL 0.4 MG CAP PO SCH (08:51)
[2022-04-27] MEDS: PANTOprazole 40 MG TAB PO SCH (08:51)
[2022-04-27] MEDS: predniSONE 5 MG TAB PO SCH (08:51)
[2022-04-27] MEDS: APIXABAN 5 MG TABLET PO SCH (08:51)
[2022-04-27] MEDS: MEMANTINE HCL 10 MG TAB PO SCH (08:51)
[2022-04-27] MEDS: FERROUS SULFATE 325 MG TAB PO SCH (08:51)
[2022-04-27] MEDS ORDERED: HYDROmorphone INJ 1 MG/ML SYRINGE IV STA (09:21)
--- NOTE | 2022-04-27 09:28 | Discharge Summary ---
Discharge Summary Date of Service April 27, 2022 Admission HPI Per Admitting Provider Aditya is a 61 year old male with a PMH significant for Recent C.diff infection, recently diagnosed Pulmonary emboli in February 2022 on Eliquis, RA on chronic prednisone treatment, HTN, CAD, non-ischemic cardiomyopathy, HFpEF (LVEF of 60-65% as of 01/15/22) , chronic LBBB, alcohol dependence, GERD, S/P right hip replacement on 10/07/[address] Cary, chronic pain from cervical and lumbar spinal stenosis, and CKD who presented to the [facility] ED on 04/22/22 after he was found to have a displaced left femoral neck fracture today at the orthopedic clinic. Per chart review, the patient had been having left hip pain and ambulatory dysfunction over the past month. He was initially seen in the orthopedic clinic on 04/14 for this issue and was given a steroid injection. This only worked for a short time and her returned for worsening pain and ambulatory dysfunction. Xrays of the left hip today show a displaced left femoral neck fracture, he was sent to the ED for further evaluation and admission. At the time of the exam the patient was resting in bed in no acute distress, he is in moderate pain due to his current hip fracture. He states that he started developing left hip pain approximately 2 weeks ago, this was insidious in nature and he denies any acute trauma. He states that he did not have improvement after the left hip steroid injection last week. He states he has been doing well otherwise and denies any recent bleeding or easy bruising on the Eliquis. he states that the morphine he received earlier did not relieve his pain and he would like to try something else. I spoke to him regarding code status, he is a full code. In the ED the patient was found to be afebrile, hemodynamically stable, and stable on RA. Labs were remarkable for WBC WNL, stable Hgb at 10.3, stable platelets, stable renal function and electrolytes, and covid negative. Chest xray was negative for acute process. Prior to admission the patient was given 10 mg total of IV morphine and 4 mg of IV zofran. Please refer to Dr. Doshi's attestation for any changes to the treatment plan. Admission Exam Per Admitting Provider General: In no acute distress, stated age, well-nourished, good hygiene HEENT: Normocephalic, atraumatic, no scleral icterus, pupils around round, symmetrical, and reactive to light, moist mucus membranes, trachea midline, no thyromegaly Chest/Pulm: No respiratory distress, symmetrical chest expansion, clear breath sounds throughout Cardiac: RRR, no murmurs noted Abdomen: Negative for ascites and bruising, normoactive bowel sounds, soft, non-tender to palpation throughout Musculoskeletal: Symmetrical ROM in the BL upper extremities, RLE without ROM limitation or pain, LLE with limited hip and knee flexion due to pain from fracture, intact sensation and motor function noted in the BL LE's Extremities: Radial, dorsalis pedis, and posterior tibial pulses are intact and symmetrical, +1 edema noted in the BL LE's Skin: Warm, dry, no rashes , lesions, or scars noted Neuro: Alert and oriented to person, place, month, year, and president, no focal defects, CN II-XII tested and intact, finger to nose test negative, no tremors noted Psych: No acute distress, calm and cooperative during the exam Principal Dx & Hospital Course #1 = Principal Diagnosis (1) Fracture of femoral neck, left: -Noted to have displaced left femoral neck fracture in the orthopedic clinic and sent to the ED for admission -No acute trauma, fracture likely from reduced bone density from chronic prednisone therapy for RA -CXR and EKG performed, chronic LBBB, appropriate risk for surgery -S/p ORIF by Dr. Stringer on 04/23 -Hgb stable 8.9 (baseline 9-10). -Pain control with scheduled Tylenol 1000mg q8h, resume home medication (morphine controlled release 30mg q8h scheduled), with morphine IR 30mg q6h as needed for breakthrough pain (patient reports taking relatively around the clock for decades) -Miralax q6h for bowel regimen -PT and OT recommend rehab; [facility] discharge today (2) Pulmonary emboli: -Was diagnosed last month, has been doing well on Eliquis -Oxygenating well on room air -Eliquis 5mg BID for PE and for DVT ppx post-surgery (3) BPH (benign prostatic hyperplasia): -Continue Flomax (4) Chronic systolic heart failure: -Entresto, Lasix, Labetalol held again today given BP 100s systolic before AM meds -Suspect due to increased opiate use from baseline, continue to monitor and add home meds back as able (5) Anxiety: -Continue Buspar and diazepam (6) Hypertension: -Hold labetalol (7) Rheumatoid arthritis: -Continue prednisone (8) GERD (gastroesophageal reflux disease): -Continue PPI (9) Chronic back pain: -See pain control regimen for left hip fracture Plan Dispo: [facility] Discharge Exam Constitutional WD/WN, vitals as above Respiratory normal respiratory effort, lungs clear to auscultation Cardiovascular RRR, no murmur, no edema Gastrointestinal (Abdomen) normal bowel sounds, soft, nontender, no hepatosplenomegaly Skin no rashes, warm and dry Psychiatric A+Ox3, euthymic affect Updated Medication List Medication Instructions Recorded Confirmed Type gabapentin 100 mg capsule 100 mg PO QAM 03/24/18 04/22/22 History sacubitril 97 mg-valsartan 103 mg 1 tab PO BID 10/20/19 04/22/22 History tablet (Entresto) multivitamin 1 tab PO QAM 01/19/20 04/22/22 History duloxetine 30 mg capsule,delayed 30 mg PO HS 06/28/20 04/22/22 History release (Cymbalta) gabapentin 300 mg capsule 300 mg PO TID 06/28/20 04/22/22 History ashwagandha root extract 300 mg 300 mg PO HS 05/30/21 04/22/22 History capsule ferrous sulfate 325 mg (65 mg 325 mg PO QAM 05/30/21 04/22/22 History iron) tablet spironolactone 25 mg tablet 25 mg PO QAM 05/30/21 04/22/22 History (Aldactone) amoxicillin 500 mg tablet 2,000 mg PO DIRECTED PRN 1 HOUR 12/20/21 04/22/22 History PRIOR TO DENTAL WORK. labetalol 100 mg tablet 100 mg PO BID #180 tabs 01/01/22 04/22/22 Rx nitroglycerin 0.4 mg sublingual 0.4 mg sublingual Q5M PRN chest 01/01/22 04/22/22 Rx tablet pain #25 tabs tamsulosin 0.4 mg capsule (Flomax) 0.4 mg PO DAILY #90 caps 01/15/22 04/22/22 Rx diazepam 5 mg tablet 5 mg PO BID PRN anxiety #60 tabs 01/30/22 04/22/22 Rx cholecalciferol (vitamin D3) 125 125 mcg PO 2XWK #30 tabs 02/03/22 04/22/22 Rx mcg (5,000 unit) tablet (Vitamin D3) memantine 10 mg tablet (Namenda) 10 mg PO BID #180 tabs 02/20/22 04/22/22 Rx doxazosin 8 mg tablet (Cardura) 4 mg PO QAM #90 tabs 03/18/22 04/22/22 Rx omeprazole 20 mg capsule,delayed 20 mg PO BID #180 caps 03/19/22 04/22/22 Rx release prednisone 5 mg tablet 5 mg PO DAILY #90 tabs 03/20/22 04/22/22 Rx albuterol sulfate 90 mcg/actuation 2 puff inhalation Q6H PRN 03/21/22 04/22/22 Rx aerosol inhaler shortness of breath or wheezing #6.7 grams furosemide 20 mg tablet 20 mg PO DAILY #30 tabs 03/21/22 04/22/22 Rx ondansetron 4 mg disintegrating 4 mg PO Q8H PRN nausea and 03/21/22 04/22/22 Rx tablet vomiting 4 days #20 tabs morphine 15 mg immediate release 30 mg PO Q6H PRN pain #240 tabs 04/10/22 04/22/22 Rx tablet apixaban 5 mg tablet (Eliquis) 5 mg PO BID #60 tabs 04/26/22 04/22/22 Rx buspirone 15 mg tablet 30 mg PO BID #60 tabs 04/26/22 04/22/22 Rx morphine 30 mg tablet,extended 30 mg PO Q8H #90 tabs 04/27/22 04/22/22 Rx release (MS Contin) Hospital Stay Data Consultations 04/22/22 15:39 Consult Orthopedic Surgery Routine 04/22/22 15:52 ED Decision to Admit Stat 04/22/22 17:01 Consult Orthopedic Surgery Routine Procedures Performed Operation Date: 04/23/22 07:40 Actual Procedures p Left Total Hip Arthroplasty--Uncemented(Left) - Luis Fernando Stringer MD Pending Results Patient Have Any Pending Studies at Discharge: No Discharge Instructions Given to Patient (Per Discharging Provider) Fracture of femoral neck, left: -Noted to have displaced left femoral neck fracture in the orthopedic clinic and sent to the ED for admission -No acute trauma, fracture likely from reduced bone density from chronic prednisone therapy for RA -S/p ORIF by Dr. Stringer on 04/23 -Hgb stable 8.9 on 04/27 -Pain control with scheduled Tylenol 1000mg q8h. CONTINUE home medication (morphine controlled release 30mg q8h scheduled), with morphine IR 30mg q6h. Patient takes both medications at home on a relatively scheduled basis for the last 2 decades. -Miralax q6h for bowel regimen -PT and OT recommend rehab; [facility] discharge today. Pulmonary emboli: -Was diagnosed last month, has been doing well on Eliquis -Oxygenating well on room air -Eliquis 5mg BID for PE which will cover for DVT ppx post-surgery BPH (benign prostatic hyperplasia): -Continue Flomax Chronic systolic heart failure: -Entresto, Lasix, Labetalol held 04/26 due to BP 100s systolic before AM meds -Suspect due to increased opiate use from baseline, continue to monitor and add home meds back as able Anxiety: -Continue Buspar and diazepam Hypertension: -Hold labetalol Rheumatoid arthritis: -Continue prednisone GERD (gastroesophageal reflux disease): -Continue PPI Chronic back pain: -See pain control regimen for left hip fracture Total Time Total Time Spent Total Time Spent (In Minutes): 40 minutes Coding Level of Care Code D/C DAY MANAGEMENT >30 MINS Diagnoses Fracture of femoral neck, left S72.002A Pulmonary emboli I26.99 BPH (benign prostatic hyperplasia) N40.0 Chronic systolic heart failure I50.22 Anxiety F41.9 Hypertension I10 Rheumatoid arthritis M06.9 Rheumatoid arthritis location: unspecified site Rheumatoid factor presence: unspecified presence GERD (gastroesophageal reflux disease) K21.9 Chronic back pain M54.9; G89.29
[2022-04-27] MEDS ORDERED: LIDOCAINE 5% 1 PATCH TD SCH (09:30)
[2022-04-27] MEDS: GABAPENTIN 300 MG CAP PO SCH (11:22)
[2022-04-27] MEDS ORDERED: MoRPHine SULFATE CR 15 MG TABCR PO SCH (12:00)
== END 2022-04-27 11:44 | DRG 522 ==
LOC: ED 14:30 → SUATTDRO 16:43 → EDINP 16:43 → 3W 21:54

== ENCOUNTER 2023-04-01 07:13 | Observation (INO) ==
[2023-04-01 07:55] LABS: Basophils # (auto) 0.03 K/uL (0.00-0.20); Basophils % (auto) 0.5 %; Eosinophils # (auto) 0.42 K/uL (0.00-0.50); Eosinophils % (auto) 6.4 %; Hematocrit (blood only) 29.3 % (42.0-52.0); Hemoglobin 10.2 g/dl (14.0-18.0); Immature Granulocytes # (auto) 0.03 K/uL (0.01-0.20); Immature Granulocytes % (auto) 0.5 %; Lymphocytes # (auto) 1.22 K/uL (1.20-3.40); Lymphocytes % (auto) 18.7 %; Mean Corpuscular Hemoglobin 31.6 pg (25.0-34.0); Mean Corpuscular Hgb Conc 34.8 g/dL (32.0-36.0); Mean Corpuscular Volume 90.7 fL (80.0-100.0); Mean Platelet Volume 9.6 fL (9.4-12.4); Monocytes # (auto) 0.77 K/uL (0.11-0.59); Monocytes % (auto) 11.8 %; Neutrophils # (auto) 4.07 K/uL (1.40-6.50); Neutrophils % (auto) 62.1 %; Platelet Count 214 K/uL (130-400); RDW Coefficient of Variation 12.9 % (11.5-14.5); RDW Standard Deviation 42.8 fL (36.4-46.3); Red Blood Count 3.23 M/uL (4.70-6.10); White Blood Count 6.54 K/ul (4.8-10.8)
--- NOTE | 2023-04-01 08:03 | Emergency Department Note ---
Impression & Plan Generalized weakness, Acute hyponatremia, NAHUN (acute kidney injury) ED Provider Note HISTORY OF PRESENT ILLNESS: Patient is a 62-year-old male presenting with chest pain and epigastric pain. Patient reports that he has been having a substernal and epigastric chest tightness intermittently over the last week. He states for the last 2-week he has had progressively worsening weakness. He states "all my strength is just gone." He states that he has been wheezing a lot recently and it feels very tight to breathe. He has a history of pulmonary emboli but is not currently on any anticoagulation. Denies any history of cardiac stents. He denies any recent sick contact exposures. Denies any numbness tingling or focal weakness in extremities. Denies any headache or changes in vision. Denies any nausea or vomiting. Denies any dysuria or hematuria ROS: as above PHYSICAL EXAM: Constitutional: Patient appears in no acute distress. HENT: Head: Normocephalic and atraumatic. Eyes: EOMI, PERRL Mouth/Throat: Mucous membranes moist. Neck: Trachea midline. Neck supple. Cardiovascular: RRR, No murmurs, rubs or gallops. Intact distal pulses. Pulmonary/Chest: No respiratory distress. Breath sounds clear and equal bilaterally. No wheezes or rales. Abdominal: Abdomen soft, no tenderness, rebound or guarding. Musculoskeletal: No edema, tenderness or deformity noted. Skin: Warm and dry. No rash, erythema, pallor or cyanosis Psychiatric: Appropriate mood and affect for situation. Neurological: Alert and keenly responsive. CN II-XII grossly intact, moving all extremities equally and fully. MDM: - Vitals signs showed hypotension - History obtained via patient. Patient presents with chest pain and epigastric pain. Patient reports has been having substernal epigastric chest tightness intermittently over the last week. He states over the last 2 weeks has had progressively worsening weakness. He states he feels too fatigued to do anything. He states he feels like he is wheezing and that his chest is tight. Reports history of PEs but is not on anticoagulation. He denies any dysuria or hematuria. - Chronic conditions affecting care: HTN; CHF; chronic pain syndrome - Differential diagnoses include, but are not limited to: pneumonia; UTI; viral syndrome; ACS - Order placed for continuous cardiac monitoring. At this time, monitor showed rate of 71 bpm with normal sinus rhythm, per my interpretation. - External medical records reviewed. Patient's primary care note dated 03/24/2023 was reviewed. Patient was taken off of morphine 30 mg 3 times daily and changed to oxycodone 10 mg 4 times daily. - EKG reviewed by myself showed normal sinus rhythm. Rate 84 bpm. QTc 453. No acute ischemic changes. - Laboratory workup interpreted by myself showed normal WBC; hyponatremia (Na 127); NAHUN (Cr 5.25 - baseline around 1.0); hypocalcemia (Ca 8.0); normal troponin; normal lipase - Biofire negative - UA negative for infection - CXR negative for pneumonia, per my interpretation - Patient given 2L NS in ER. - CT abd/pelvis wo contrast negative for acute pathology. - Discussion was had with marriage and family social worker about patient's case and need for admission - Hospitalist consulted for admission - [facility] ASSESSMENT AND PLAN: Diagnosis: generalized weakness; NAHUN; hyponatremia Plan: admit Past Med/Surg History Medical History Acquired deviated nasal septum Acute hyperkalemia Acute hypotension NAHUN (acute kidney injury) Atypical chest pain Back pain C. difficile diarrhea C. difficile enteritis Cardiomyopathy Cardiomyopathy, idiopathic Cellulitis Chest pain Chest pain Chest pain at rest Chronic back pain Chronic back pain Chronic use of steroids Closed left hip fracture Congestive heart failure Diverticulitis DVT prophylaxis Dyspnea Elevated hemidiaphragm Elevated hemidiaphragm Encounter for pre-operative examination Femoral neck fracture Fracture of femoral neck, left GERD (gastroesophageal reflux disease) History of COVID-19 Hypertension Kidney stones Kyphosis deformity of spine LBBB (left bundle branch block) Low testosterone Osteoporosis Restrictive airway disease Rheumatoid arthritis Sepsis associated hypotension Sinusitis, acute Skin tear of forearm without complication Spinal stenosis of lumbar region at multiple levels Sprain of right knee Surgical History H/O cervical spine surgery History of colonoscopy History of laparoscopic appendectomy (06/24/21) History of lithotripsy History of lumbar fusion History of total knee replacement History of total right knee replacement (~10/2019) Status post knee replacement Status post left hip replacement Status post right hip replacement (~09/2021) Family History Mother Family hx of colon cancer Father Myocardial infarction Other No family history of adverse response to anesthesia No family history of bleeding disorder Denies family history of Ovarian cancer Prostate cancer Breast cancer Lung cancer Social History Smoking Status: Never smoker Second Hand Exposure: No; Do You Dip or Chew Tobacco: No; Hx Alcohol Use: No Hx Substance Use: No Preferred Language: Uzbek Communication Ability: Effective Visual Impairment: Partially Limited 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 Beliefs That Will Affect Care: None marital status: Single Current Living Situation: Spouse current occupational status: retired and disabled current occupation: [employer] How many Children do You have: 1 Feels Safe at Home: Yes Childhood Exposure to Second-Hand Smoke: No caffeine: Yes Dental Care, Regularly: Yes Physical Activity Frequency: Does not Exercise Seatbelt Use: sometimes Sunscreen Use: No Assistive Devices: Cane and Walker Allergies Allergies Allergy/AdvReac Type Severity Reaction Status Date / Time No Known Drug Allergies Allergy Verified 03/24/23 13:47 Home Meds Home Medications Medication Instructions Recorded Confirmed multivitamin 1 tab PO QAM 01/19/20 03/24/23 duloxetine 30 mg capsule,delayed 30 mg PO HS 06/28/20 03/24/23 release (Cymbalta) ashwagandha root extract 300 mg 300 mg PO HS 05/30/21 03/24/23 capsule ferrous sulfate 325 mg (65 mg 325 mg PO QAM 05/30/21 03/24/23 iron) tablet diclofenac sodium 1 % topical gel 2 g topical QID PRN 10/16/22 03/24/23 (Arthritis Pain (diclofenac)) furosemide 20 mg tablet 20 mg PO DAILY 02/18/23 03/24/23 Previous Rx's Medication Instructions Recorded nitroglycerin 0.4 mg sublingual 0.4 mg sublingual Q5M PRN chest 01/01/22 tablet pain #25 tabs diazepam 5 mg tablet 5 mg PO BID PRN anxiety #60 tabs 01/30/22 omeprazole 20 mg capsule,delayed 20 mg PO BID #180 caps 03/19/22 release albuterol sulfate 90 mcg/actuation 2 puff inhalation Q6H PRN 03/21/22 aerosol inhaler shortness of breath or wheezing #6.7 grams spironolactone 25 mg tablet 25 mg PO QAM #180 tabs 05/21/22 (Aldactone) sacubitril 97 mg-valsartan 103 mg 1 tab PO BID #180 tabs 06/20/22 tablet (Entresto) mometasone 0.1 % topical cream 1 applic topical DAILY #45 grams 06/24/22 labetalol 100 mg tablet 100 mg PO BID #180 tabs 06/27/22 gabapentin 100 mg capsule 100 mg PO QAM #90 caps 09/04/22 gabapentin 300 mg capsule 300 mg PO TID #90 caps 09/04/22 prednisone 1 mg tablet 4 mg (4 x 1 mg) PO DAILY #120 tabs 11/18/22 ondansetron 4 mg disintegrating 4 mg PO Q8H PRN nausea and 12/11/22 tablet vomiting 4 days #20 tabs tamsulosin 0.4 mg capsule (Flomax) 0.8 mg (2 x 0.4 mg) PO DAILY #180 12/29/22 caps amoxicillin 500 mg tablet 2,000 mg (4 x 500 mg) PO 02/06/23 DIRECTED PRN 1 HOUR PRIOR TO DENTAL WORK. #4 tabs memantine 10 mg tablet (Namenda) 10 mg PO BID #180 tabs 03/12/23 morphine 30 mg tablet,extended 30 mg PO Q8H #90 tabs 03/12/23 release (MS Contin) oxycodone 20 mg tablet 20 mg PO QID PRN pain #120 tabs 03/12/23 testosterone 50 mg/5 gram (1 %) 1 packet transdermal QAM #300 grams 03/12/23 transdermal gel amoxicillin 875 mg-potassium 1 tab PO BID #20 tabs 03/18/23 clavulanate 125 mg tablet cholecalciferol (vitamin D3) 125 125 mcg PO 2XWK #30 tabs 03/20/23 mcg (5,000 unit) tablet (Vitamin D3) doxycycline hyclate 100 mg tablet 100 mg PO BID #20 tabs 03/25/23 Results & Data (ED) Vital Signs Vital Signs - 24 hr 04/01/23 07:17 04/01/23 07:36 04/01/23 07:42 Temperature 36.9 C Temperature Source Temporal Artery Scan Pulse Rate 77 78 Pulse Rate [Apical] 87 Respiratory Rate 19 20 Respiratory Effort / Characteristics Non-Labored Respiratory Depth Normal Blood Pressure 99/56 L Blood Pressure [Right Arm] 111/70 Blood Pressure Mean 70 Blood Pressure Mean [Right Arm] 83 Pulse Oximetry 97 92 Oxygen Delivery Method Room Air Room Air Sepsis Recent Fever Within 48 Hours No Sepsis New/Unexplained Change in Mental Status No Sepsis Action Taken by Nursing No Action Required 04/01/23 09:38 Temperature Temperature Source Pulse Rate Pulse Rate [Apical] 71 Respiratory Rate 20 Respiratory Effort / Characteristics Respiratory Depth Normal Blood Pressure Blood Pressure [Right Arm] 95/60 L Blood Pressure Mean Blood Pressure Mean [Right Arm] 71 Pulse Oximetry 92 Oxygen Delivery Method Room Air Sepsis Recent Fever Within 48 Hours Sepsis New/Unexplained Change in Mental Status Sepsis Action Taken by Nursing Laboratory Data 04/01/23 07:38 04/01/23 07:38 Lab Results 04/01/23 04/01/23 Range/Units 07:38 08:35 WBC 6.54 (4.8-10.8) K/ul RBC 3.23 L (4.70-6.10) M/uL Hgb 10.2 L (14.0-18.0) g/dl Hct 29.3 L (42.0-52.0) % MCV 90.7 (80.0-100.0) fL MCH 31.6 (25.0-34.0) pg MCHC 34.8 (32.0-36.0) g/dL RDW Std Deviation 42.8 (36.4-46.3) fL RDW Coeff of [place] 12.9 (11.5-14.5) % Plt Count 214 (130-400) K/uL MPV 9.6 (9.4-12.4) fL Immature Gran % (Auto) 0.5 % Neut % (Auto) 62.1 % Lymph % (Auto) 18.7 % Nicholas % (Auto) 11.8 % Eos % (Auto) 6.4 % Baso % (Auto) 0.5 % Neut # (Auto) 4.07 (1.40-6.50) K/uL Lymph # (Auto) 1.22 (1.20-3.40) K/uL Nicholas # (Auto) 0.77 H (0.11-0.59) K/uL Eos # (Auto) 0.42 (0.00-0.50) K/uL Baso # (Auto) 0.03 (0.00-0.20) K/uL Immature Gran # (Auto) 0.03 (0.01-0.20) K/uL Sodium 127 L (136-145) mmol/L Potassium 5.1 (3.5-5.1) mmol/L Chloride 94 L (98-107) mmol/L Carbon Dioxide 26 (21-32) mmol/L Anion Gap 7 (3-11) BUN 68 H (6-23) mg/dl Creatinine 5.25 H* (0.6-1.4) mg/dl Est Cr Clr Drug Dosing Not Reportable Est GFR ( Amer) 12.4 ml/min Est GFR (Non-Af Amer) 10.7 ml/min BUN/Creatinine Ratio 13.0 (10-20) Glucose 107 H (70-99(Fasting)) mg/dl Calcium 8.0 L (8.6-10.3) mg/dl Magnesium 2.2 (1.7-2.4) mg/dl Total Bilirubin 0.4 (0.2-1.0) mg/dl AST 27 (13-39) U/L ALT 15 (7-52) U/L Alkaline Phosphatase 72 (34-104) U/L Troponin I High Sens 4.5 (0-20) pg/ml Total Protein 6.3 (6.0-8.3) gm/dl Albumin 3.7 (3.4-5.0) gm/dl Globulin 2.6 (2.5-4.0) gm/dl Albumin/Globulin Ratio 1.4 (0.9-2) Lipase 14 (11-82) U/L Urine Color Yellow Urine Appearance Clear (Clear) Urine pH 5.0 (4.5-7.5) Ur Specific [place] 1.011 (1.000-1.030) Urine Protein Negative (Negative) Urine Glucose (UA) Negative (Negative) Urine Ketones Negative (Negative) Urine Blood Negative (Negative) Urine Nitrite Negative (Negative) Urine Bilirubin Negative (Negative) Urine Urobilinogen Negative (Negative) Ur Leukocyte Esterase Negative (Negative) Adenovirus (PCR) Not Detected (NotDetected) B. pertussis DNA (PCR) Not Detected (NotDetected) B.parapertussis DNA PCR Not Detected (NotDetected) C. pneumoniae DNA (PCR) Not Detected (NotDetected) Coronavirus OC43 (PCR) Not Detected (NotDetected) Coronavirus HKU1 (PCR) Not Detected (NotDetected) Coronavirus 229E (PCR) Not Detected (NotDetected) SARS-CoV-2 (PCR) Not Detected (NotDetected) Coronavirus NL63 (PCR) Not Detected (NotDetected) Human Metapneumovir PCR Not Detected (NotDetected) Influenza Type A (PCR) Not Detected (NotDetected) Influenza Type B (PCR) Not Detected (NotDetected) M. pneumoniae (PCR) Not Detected (NotDetected) Parainfluenza 1 (PCR) Not Detected (NotDetected) Parainfluenza 2 (PCR) Not Detected (NotDetected) Parainfluenza 3 (PCR) Not Detected (NotDetected) Parainfluenza 4 (PCR) Not Detected (NotDetected) RSV (PCR) Not Detected (NotDetected) Entero/Rhino (PCR) Not Detected (NotDetected) Administered Medications Discontinued Medications Sodium Chloride (Nss) 1,000 mls @ 999 mls/hr IV .Q1H1M ONE Stop: 04/01/23 09:26 Last Infusion: 04/01/23 09:38 Dose: Infused Documented By: Admin: 04/01/23 08:30 Dose: 999 mls/hr Documented By: MARI Imaging Data Radiologist's Impression: Chest X-Ray 04/01/23 07:38 XR chest 1V portable HISTORY: Atypical chest pain. COMPARISON: Chest 03/24/2023. FINDINGS: There are low lung volumes. No pneumothorax. The heart remains enlarged. The left lung is clear. No evidence for pulmonary edema. There is chronic elevation of the right hemidiaphragm with right basilar linear densities. This favors subsegmental atelectasis. This is similar to the prior study. IMPRESSION: 1. Stable cardiomegaly. 2. Chronic elevation of the right hemidiaphragm and right basilar linear densities persist. This favors subsegmental atelectasis. A pneumonia could also have a similar appearance in the appropriate clinical setting. ACT 112: Negative or not required by law. Electronically signed by: Dionisio Lou M.D. 04/01/2023 8:35 AM Abdomen/Pelvis CT 04/01/23 08:[address] WITHOUT CONTRAST CT DOSE: 1373.83 mGy.cm HISTORY: Weakness. epigastric pain; acute renal failure TECHNIQUE: Multiaxial CT images of the abdomen and pelvis were performed without contrast. A dose lowering technique was utilized adhering to the principles of ALARA. COMPARISON STUDY: Abdomen and pelvis CT 08/19/2022. FINDINGS: A few subcentimeter pulmonary nodules within the lung bases are again noted and measures up to 6 mm. These are not significantly changed. Mild elevation the right hemidiaphragm with right basilar linear densities suggesting subsegmental atelectasis or scarring. This is also similar to the prior study. No pneumoperitoneum. No pneumatosis. There are bilateral total hip arthroplasties again noted. One of the left acetabular screws protrudes into the left iliac psoas muscle. This remains unchanged. L2-S1 posterior decompression and fusion with pedicle screws and rods. The bilateral S1 pedicle screws are fractured. Stable 1 cm sclerotic focus within the L1 vertebral body. This favors a bone island. No new suspicious lytic or blastic osseous lesions. There are old, healed right-sided rib fractures. The heart remains mildly enlarged. Tiny fat-containing umbilical hernia. Partially visualized moderate right hydrocele again noted. This is not significantly changed. Levoscoliosis of the lumbar spine. The unenhanced liver, gallbladder, pancreas, spleen, and adrenal glands are unremarkable. There is a 3 mm stone within the lower pole of the right kidney. No left renal calculi. No ureteral calculi. No hydronephrosis. No retroperitoneal lymphadenopathy. Calcified plaque within the normal caliber abdominal aorta. The bladder is not well visualized due to metallic artifact but appears unremarkable. No pelvic free fluid or pelvic lymphadenopathy identified. Suboptimal evaluation for bowel pathology due to the lack of intravenous and oral contrast. However, there is no definite bowel wall thickening or obstruction. A few colonic diverticula. No evidence for acute diverticulitis. Prior appendectomy. IMPRESSION: 1. Overall, no significant change compared to the prior study. 2. No bowel wall thickening or obstruction. 3. Prior appendectomy. 4. Right-sided nephrolithiasis. No ureteral stones. No hydronephrosis. 5. L2-S1 posterior decompression and fusion with pedicle screws and rods. The bilateral S1 pedicle screws are fractured. 6. Additional findings as described above. ACT 112: Negative or not required by law. Electronically signed by: Dionisio Lou M.D. 04/01/2023 9:02 AM Discharge Plan Visit Data Chief Complaint: Abdominal Pain Stated Complaint: VERY WEAK,HEAD HURTS,CHEST PAIN,ABDOMINAL PAIN ED Provider: Jami Jordan Discharge Problem: Generalized weakness, Acute hyponatremia, NAHUN (acute kidney injury) Forms Stand Alone Forms: [facility] Prescriptions Prescriptions: No Action diazepam 5 mg tablet 5 mg PO BID PRN (Reason: anxiety) Qty: 60 5RF omeprazole 20 mg capsule,delayed release(DR/EC) 20 mg PO BID Qty: 180 3RF spironolactone [Aldactone] 25 mg tablet 25 mg PO QAM Qty: 180 2RF Entresto 97-103 mg tablet 1 tab PO BID Qty: 180 3RF labetalol 100 mg tablet 100 mg PO BID Qty: 180 3RF gabapentin 300 mg capsule 300 mg PO TID Qty: 90 3RF Rx Instructions: TAKES IN THE AFTERNOON, DINNER TIME AND AT BEDTIME gabapentin 100 mg capsule 100 mg PO QAM Qty: 90 3RF prednisone 1 mg tablet 4 mg PO DAILY Qty: 120 3RF amoxicillin 500 mg tablet 2,000 mg PO DIRECTED PRN (Reason: 1 HOUR PRIOR TO DENTAL WORK.) Qty: 4 3RF amoxicillin-pot clavulanate 875-125 mg tablet 1 tab PO BID Qty: 20 1RF cholecalciferol (vitamin D3) [Vitamin D3] 125 mcg (5,000 unit) tablet 125 mcg PO 2XWK Qty: 30 3RF Rx Instructions: TAKES TUES & FRI. doxycycline hyclate 100 mg tablet 100 mg PO BID Qty: 20 3RF furosemide 20 mg tablet 20 mg PO DAILY memantine [Namenda] 10 mg tablet 10 mg PO BID Qty: 180 3RF morphine [MS Contin] 30 mg tablet extended release 30 mg PO Q8H Qty: 90 0RF oxycodone 20 mg tablet 20 mg PO QID PRN (Reason: pain) Qty: 120 0RF testosterone 50 mg/5 gram (1 %) gel 1 packet transdermal QAM Qty: 300 5RF albuterol sulfate 90 mcg/actuation HFA aerosol inhaler 2 puff inhalation Q6H PRN (Reason: shortness of breath or wheezing) Qty: 6.7 3RF mometasone 0.1 % cream 1 applic topical DAILY Qty: 45 0RF ondansetron 4 mg tablet,disintegrating 4 mg PO Q8H PRN (Reason: nausea and vomiting) 4 Days Qty: 20 2RF nitroglycerin 0.4 mg tablet, sublingual 0.4 mg sublingual Q5M PRN (Reason: chest pain) Qty: 25 3RF Rx Instructions: do not exceed 3 doses per episode diclofenac sodium [Arthritis Pain (diclofenac)] 1 % gel 2 g topical QID PRN Rx Instructions: apply to single elbow, wrist or hand; for hand includes palm/fingers/back of hand tamsulosin [Flomax] 0.4 mg capsule 0.8 mg PO DAILY Qty: 180 3RF multivitamin Tablet 1 tab PO QAM duloxetine [Cymbalta] 30 mg capsule,delayed release(DR/EC) 30 mg PO HS ferrous sulfate 325 mg (65 mg iron) Tablet 325 mg PO QAM ashwagandha root extract 300 mg Capsule 300 mg PO HS Referrals Referrals: Giuseppe Romero MD [Primary Care Provider] -
[2023-04-01 08:11] LABS: Albumin Level 3.7 gm/dl (3.4-5.0); Anion Gap 7 (3-11); Bilirubin,Total 0.4 mg/dl (0.2-1.0); Carbon Dioxide 26 mmol/L (21-32); Chloride 94 mmol/L (98-107); Magnesium 2.2 mg/dl (1.7-2.4); Potassium 5.1 mmol/L (3.5-5.1); Sodium 127 mmol/L (136-145)
[2023-04-01 08:25] LABS: Alanine Aminotransferase 15 U/L (7-52); Albumin Globulin Ratio 1.4 (0.9-2); Alkaline Phosphatase 72 U/L (34-104); Aspartate Aminotransferase 27 U/L (13-39); Blood Urea Nitrogen 68 mg/dl (6-23); Est GFR (African American) 12.4 ml/min; Est GFR (Non-African American) 10.7 ml/min; Globulin 2.6 gm/dl (2.5-4.0); Glucose 107 mg/dl (70-99(Fasting)); Lipase 14 U/L (11-82); Total Protein 6.3 gm/dl (6.0-8.3); Troponin I High Sensitivity 4.5 pg/ml (0-20)
[2023-04-01] MEDS ORDERED: SODIUM CHLORIDE 0.9% 1,000 ML IV ONE ×2 (08:26→09:58)
--- NOTE | 2023-04-01 08:37 | XRay Report ---
XR chest 1V portable HISTORY: Atypical chest pain. COMPARISON: Chest 03/24/2023. FINDINGS: There are low lung volumes. No pneumothorax. The heart remains enlarged. The left lung is c lear. No evidence for pulmonary edema. There is chronic elevation of the right hemidiaphragm with rig ht basilar linear densities. This favors subsegmental atelectasis. This is similar to the prior study . IMPRESSION: 1. Stable cardiomegaly. 2. Chronic elevation of the right hemidiaphragm and right basilar linear densities persist. This favo rs subsegmental atelectasis. A pneumonia could also have a similar appearance in the appropriate clin ical setting. ACT 112: Negative or not required by law. Electronically signed by: Dionisio Lou M.D. 04/01/2023 8:35 AM
[2023-04-01 08:45] LABS: Adenovirus PCR Not Detected (NotDetected); Bordetella parapertussis PCR Not Detected (NotDetected); Bordetella pertussis PCR Not Detected (NotDetected); Chlamydia pneumoniae PCR Not Detected (NotDetected); Coronavirus 229E PCR Not Detected (NotDetected); Coronavirus CoV-2 (COVID19)PCR Not Detected (NotDetected); Coronavirus HKU1 PCR Not Detected (NotDetected); Coronavirus NL63 PCR Not Detected (NotDetected); Coronavirus OC43PCR Not Detected (NotDetected); Human Metapneumovirus PCR Not Detected (NotDetected); Influenza A PCR Not Detected (NotDetected); Influenza B PCR Not Detected (NotDetected); Mycoplasma pneumoniae PCR Not Detected (NotDetected); Parainfluenza Virus 1 PCR Not Detected (NotDetected); Parainfluenza Virus 2 PCR Not Detected (NotDetected); Parainfluenza Virus 3 PCR Not Detected (NotDetected); Parainfluenza Virus 4 PCR Not Detected (NotDetected); Respiratory Syncytial VirusPCR Not Detected (NotDetected); Rhinovirus/Enterovirus PCR Not Detected (NotDetected)
[2023-04-01 08:57] LABS: Appearance Urine Clear (Clear); Bilirubin Urine Negative (Negative); Blood Urine Negative (Negative); Color Urine Yellow; Glucose Urine UA Negative (Negative); Ketones Urine Negative (Negative); Leukocyte Esterase Urine Negative (Negative); Nitrite Urine Negative (Negative); Protein Urine Negative (Negative); Specific Gravity Urine 1.011 (1.000-1.030); Urobilinogen Urine Negative (Negative)
--- NOTE | 2023-04-01 09:03 | CT Scan Report ---
ABDOMEN AND PELVIS CT WITHOUT CONTRAST CT DOSE: 1373.83 mGy.cm HISTORY: Weakness. epigastric pain; acute renal failure TECHNIQUE: Multiaxial CT images of the abdomen and pelvis were performed without contrast. A dose lo wering technique was utilized adhering to the principles of ALARA. COMPARISON STUDY: Abdomen and pelvis CT 08/19/2022. FINDINGS: A few subcentimeter pulmonary nodules within the lung bases are again noted and measures up to 6 mm. These are not significantly changed. Mild elevation the right hemidiaphragm with right basi lar linear densities suggesting subsegmental atelectasis or scarring. This is also similar to the radha or study. No pneumoperitoneum. No pneumatosis. There are bilateral total hip arthroplasties again not ed. One of the left acetabular screws protrudes into the left iliac psoas muscle. This remains unchan ged. L2-S1 posterior decompression and fusion with pedicle screws and rods. The bilateral S1 pedicle screws are fractured. Stable 1 cm sclerotic focus within the L1 vertebral body. This favors a bone is land. No new suspicious lytic or blastic osseous lesions. There are old, healed right-sided rib fract ures. The heart remains mildly enlarged. Tiny fat-containing umbilical hernia. Partially visualized m oderate right hydrocele again noted. This is not significantly changed. Levoscoliosis of the lumbar s pine. The unenhanced liver, gallbladder, pancreas, spleen, and adrenal glands are unremarkable. There is a 3 mm stone within the lower pole of the right kidney. No left renal calculi. No ureteral calcul i. No hydronephrosis. No retroperitoneal lymphadenopathy. Calcified plaque within the normal caliber abdominal aorta. The bladder is not well visualized due to metallic artifact but appears unremarkable . No pelvic free fluid or pelvic lymphadenopathy identified. Suboptimal evaluation for bowel patholog y due to the lack of intravenous and oral contrast. However, there is no definite bowel wall thickeni ng or obstruction. A few colonic diverticula. No evidence for acute diverticulitis. Prior appendectom y. IMPRESSION: 1. Overall, no significant change compared to the prior study. 2. No bowel wall thickening or obstruction. 3. Prior appendectomy. 4. Right-sided nephrolithiasis. No ureteral stones. No hydronephrosis. 5. L2-S1 posterior decompression and fusion with pedicle screws and rods. The bilateral S1 pedicle sc rews are fractured. 6. Additional findings as described above. ACT 112: Negative or not required by law. Electronically signed by: Dionisio Lou M.D. 04/01/2023 9:02 AM
--- NOTE | 2023-04-01 10:24 | History & Physical Report ---
Date of Service April 01, 2023 Assessment & Plan (1) Dyspnea: Plan: Dyspnea No hypoxia at rest, but desats to mid 80s easily conversationally. Patient has had dyspnea for at least 2 to 3 weeks, and reports he has limiting inspiratory pain. He does have some reproducible tenderness to palpation of his anterior lower ribs which examines as costochondritis from coughing, but notes that he has had some pain with breathing concerning for pleuritic pain History of PE suspected provoked in the setting of a hospitalization and C. difficile 1 year ago, has been off anticoagulation for several months Shortness of breath, cough, and dyspnea have not improved with a 10-day course of Augmentin and doxycycline. Procalcitonin is negative, chest x-ray is with small area of density from which pneumonia cannot be excluded; he has been afebrile with no leukocytosis and suspect pneumonia is unlikely. Further antibiotics deferred D-dimer is elevated at 1100. Last checked in 2021 in the setting of his acute PE, significantly elevated at that time. Risks of CTAPE exceed benefits in the setting of NAHUN/ARF, will treat empirically with heparin GTT. CTAPE can be performed when renal function improves, V/q deferred (2) NAHUN (acute kidney injury): Plan: Creatinine baseline <1.2, admit Cr 5.25. Potassium upper limit of normal, no overt fluid overload - Patient was switched from morphine to oxycodone p.o., and was prescribed a course of both Augmentin and doxycycline in the previous month. Otherwise denies any medication changes. Some loose bowels with this, C. difficile gene was 03/26 CTa/p without acute abnormalities or evidence of obstructive pathology. UA bland. Postvoid residual is less than 300, no signs of obstruction on CT. Serum osmolality is normal. Urine electrolytes, protein, creatinine pending Transaminases are not elevated, troponin is normal borderline hypotensive but without other indicators of endorgan ischemia Suspect prerenal, received 2 L NSS in ER. Will repeat BMP in afternoon, and then trend daily. Nonanuric. Patient took Entresto, spironolactone, and Lasix 04/01 in the morning. Reports he has had normal fluid intake and has continued to be light yellow urine. DDx includes prerenal/medication induced Nephrology consulted, ARNI/spironolactone/Lasix held. Patient received 2 L of fluid, additional held --> n.p.o. encouraged. Normotensive on bedside recheck (3) Generalized weakness: Plan: Dyspnea, chest pain, weakness CXR: Chronic elevation of right hemidiaphragm and right basilar densities similar to prior, but from which pneumonia cannot be excluded. No pulmonary edema Resting SPO2 greater than 90%, does desat easily into mid 80s conversationally. No tachycardia Patient with bilateral anterior rib pain reproducible on palpation with coughing for several weeks that has not improved on abx, Was prescribed Augmentin 02/2023 and 10 days of and doxycycline 03/25/2023, with no improvement in cough Rib pain is reproducible on palpation suggestive of costochondritis/MSK pain, but does have limited deep breathing due to his pain and history of PE PFTs 2020 consistent with moderate restriction consistent with elevated hemidiaphragm Acute PE diagnosed 06/2022, was anticoagulated for around 4 months then this was discontinued. PE was suspected be provoked in the setting of an acute hospitalization Chronically with elevated R hemidiaphragm of unclear etiology;? Phrenic nerve injury related to cervical neck fusion. Clinically doing well and stable on repeat XR (4) Cardiomyopathy, idiopathic: Plan: Acute lower chest/rib pain history of chronic systolic heart failure Troponin normal, EKG without acute ischemic changes Limited echo does not show right heart strain, and no wall motion change; stable. No evidence of ACS. Suspect rib pain due to costochondritis versus pleuritic On Entresto [id number] twice daily, spironolactone 25 mg, Lasix 20 daily. Held as noted Last echo 2021 showed EF of 55-60%. EF remains normalized after reduction to 35% in 2019 (5) Elevated hemidiaphragm: Plan: as noted (6) H/O cervical spine surgery: Plan: - hx of chronic cervical and lumbar pain, hx cervical decompression - no new neurologic sx Chronically on MS Contin 30 every 8+ oxycodone 20 mg 4 times daily. Patient was recently switched to MS Contin/oxycodone IR from morphine SR/IR, 01/2023, initially with improved pain control but pt feels he has had some sedation with this since. Oxycodone IR and morphine XR continued, dose reduced w/ narcan safety instruction police officer Duloxetine 30 mg nightly, gabapentin 300 mg 3 times daily +100 mg at bedtime renally adjusted to 100 mg 3 times daily; continue to adjust as needed per creatinine clearance (7) Hypertension: Plan: Hypertension Labetalol 100 mg twice daily held due to hypotension, was also low 03/12 at 03/24 PCP checks - ARNI/ashley/lasix as ntoed (8) BPH (benign prostatic hyperplasia): Plan: BPH Continue finasteride/Flomax. Postvoid residual is less than 300 and no signs of obstruction on CT Strict ins and outs (9) Anemia: Plan: History of anemia 2/2 hypogonadism Baseline fluctuating between 02/03, currently 10.2 Patient denies any bleeding, no melena/hematochezia, and tolerated his Eliquis well while he was on it. Does have a history of colon cancer in his mother, last colonoscopy he with [facility] 2019 showed nonbleeding internal hemorrhoids, small mouth diverticuli of ascending colon. No specimens collected. Was recommended for every 5 year surveillance, recommend continuing this. Patient also notes he had a normal send in card in the last 3 years (? FIT versus occult blood) (10) Rheumatoid arthritis: Plan: Rheumatoid arthritis On prednisone 4 mg daily (11) Anxiety: Plan: Anxiety Diazepam 5 mg twice daily home dosing continued, recommend wean and transition to alternative agent as outpatient. Hold for respiratory sedation. (12) Hypogonadism: Plan: Hypogonadism DHEA to 50 mg applied 8 AM, and testosterone 50 mg daily 2 to 3 hours later continued Plan DVT prophylaxis: Anticoagulated Disposition: PCU Diet: Heart healthy CODE STATUS: Full History of Present Illness Primary Care Provider: Giuseppe Romero MD Aditya is a 62-year-old male with a history of BPH who presents with intermittent epigastric and chest pain, chest tightness, and progressive severe weakness. Endorses increased wheezing. He is found to be in acute renal failure, acutely elevated 4 weeks prior to over 5 on admission Chest tightness, constant maybe a little worse with exertion. Notesthe pain is actually in his low ribs bilaterally, nothing in the sterum/going into the shoulder. Doesn't remember his PEs very well, not sure if this feels similar No fevers, chills, or sweats. +productive cough, clear to light yellow phlegm. Ribs hurt when he coughs and breathes in deep. No leg swelling, no calf pain. No long trips. No extermity injuries. +Dyspnea and wheezing. Cannot lay flat due to his back surgery and sleeps in a recliner due to this, does not know if he has orthopnea or not. +hx of chronic cerical and lumbar pain, no change "Peeing fine" No burning, strains a little sometimes. Denies dribbling. Feels he is usually able to empty his bladder all the way, but sometimes not. No urinary incontinence. No change in color, remains light. No black or bloody bowel movements. No lightheadedness/dizziness. Mailed in a card ~3 years ago. Was normal. Has not had a colonoscopy in ~5 years with [facility], had one polyp but otherwise normal at the time per pt. His mother did have colon cancer at ~age 50s/ Stopped blood thinner 6 months ago, was on for ~9 months total. Was on eliquis, tolerated this well without bleeding per pt 1 medication change in the last 2 months. has been on morphine 30mg tablets slow release every 8 hours + morphine IR q6h PRN. Was not getting good pain release from this, so switched to oxycontin q6h instead but doesn't seem to be working as well. He feels more sleeping Medical History: Reviewed Medications: Reviewed Surgical History: Reviewed Family history: Reviewed Allergies: Reviewed Social History: No tobacco. No etoh use; quit 10 years ago. No medical or recreational marijuana. Code Status: Full Code Allergies Allergy/AdvReac Type Severity Reaction Status Date / Time No Known Drug Allergies Allergy Verified 03/24/23 13:47 Home Medications Medication Instructions Recorded Confirmed Type multivitamin 1 tab PO QAM 01/19/20 03/24/23 History duloxetine 30 mg capsule,delayed 30 mg PO HS 06/28/20 03/24/23 History release (Cymbalta) ashwagandha root extract 300 mg 300 mg PO HS 05/30/21 03/24/23 History capsule ferrous sulfate 325 mg (65 mg 325 mg PO QAM 05/30/21 03/24/23 History iron) tablet nitroglycerin 0.4 mg sublingual 0.4 mg sublingual Q5M PRN chest 01/01/22 03/24/23 Rx tablet pain #25 tabs diazepam 5 mg tablet 5 mg PO BID PRN anxiety #60 tabs 01/30/22 04/01/23 Rx omeprazole 20 mg capsule,delayed 20 mg PO BID #180 caps 03/19/22 04/01/23 Rx release albuterol sulfate 90 mcg/actuation 2 puff inhalation Q6H PRN 03/21/22 03/24/23 Rx aerosol inhaler shortness of breath or wheezing #6.7 grams spironolactone 25 mg tablet 25 mg PO QAM #180 tabs 05/21/22 04/01/23 Rx (Aldactone) sacubitril 97 mg-valsartan 103 mg 1 tab PO BID #180 tabs 06/20/22 04/01/23 Rx tablet (Entresto) mometasone 0.1 % topical cream 1 applic topical DAILY #45 grams 06/24/22 03/24/23 Rx labetalol 100 mg tablet 100 mg PO BID #180 tabs 06/27/22 04/01/23 Rx gabapentin 100 mg capsule 100 mg PO QAM #90 caps 09/04/22 04/01/23 Rx gabapentin 300 mg capsule 300 mg PO TID #90 caps 09/04/22 04/01/23 Rx diclofenac sodium 1 % topical gel 2 g topical QID PRN Pain 10/16/22 04/01/23 History (Arthritis Pain (diclofenac)) prednisone 1 mg tablet 4 mg (4 x 1 mg) PO DAILY #120 tabs 11/18/22 04/01/23 Rx ondansetron 4 mg disintegrating 4 mg PO Q8H PRN nausea and 12/11/22 04/01/23 Rx tablet vomiting 4 days #20 tabs tamsulosin 0.4 mg capsule (Flomax) 0.8 mg (2 x 0.4 mg) PO DAILY #180 12/29/22 04/01/23 Rx caps amoxicillin 500 mg tablet 2,000 mg (4 x 500 mg) PO 02/06/23 04/01/23 Rx DIRECTED PRN 1 HOUR PRIOR TO DENTAL WORK. #4 tabs furosemide 20 mg tablet 20 mg PO DAILY 02/18/23 04/01/23 History memantine 10 mg tablet (Namenda) 10 mg PO BID #180 tabs 03/12/23 04/01/23 Rx morphine 30 mg tablet,extended 30 mg PO Q8H #90 tabs 03/12/23 04/01/23 Rx release (MS Contin) oxycodone 20 mg tablet 20 mg PO QID PRN pain #120 tabs 10/19/23 11/08/23 Rx testosterone 50 mg/5 gram (1 %) 1 packet transdermal QAM #300 grams 03/12/23 1 06/01/22 Rx transdermal gel amoxicillin 875 mg-potassium 1 tab PO BID #20 tabs 03/18/23 04/01/23 Rx clavulanate 125 mg tablet cholecalciferol (vitamin D3) 125 125 mcg PO 2XWK #30 tabs 03/20/23 04/01/23 Rx mcg (5,000 unit) tablet (Vitamin D3) doxycycline hyclate 100 mg tablet 100 mg PO BID #20 tabs 03/25/23 04/01/23 Rx Past Med/Surg History Medical History Dyspnea Sinusitis, acute Diverticulitis Low testosterone Skin tear of forearm without complication Osteoporosis Closed left hip fracture Chest pain at rest Fracture of femoral neck, left Femoral neck fracture C. difficile diarrhea C. difficile enteritis NAHUN (acute kidney injury) Acute hyperkalemia Hypertension Cellulitis Elevated hemidiaphragm Right Atypical chest pain Chest pain Acquired deviated nasal septum Chronic back pain hx pain pump -- worked for 7 days and then became infected and was removed. unable to reinsert. done in [place] "a long time ago" History of COVID-19 05/2021 asymptomatic. tested positive incidentally while being inpatient with appendicitis Congestive heart failure Sepsis associated hypotension Acute hypotension Encounter for pre-operative examination Restrictive airway disease Per records > Pt denies Per 06/2020 PFTS: Moderate restrictive physiology with bronchodilator response and decreased DLCO Elevated hemidiaphragm Kyphosis deformity of spine Sprain of right knee LBBB (left bundle branch block) Cardiomyopathy, idiopathic Resolved -- LVEF 55% to 60% on 2 D echo 11/04/2019 Rheumatoid arthritis Steroid dependent- follows with rheum - Dr. Roman Chronic back pain Spinal stenosis of lumbar region at multiple levels Back pain Chest pain Chronic use of steroids DVT prophylaxis Cardiomyopathy Nonischemic- resolved Kidney stones No recent issues GERD (gastroesophageal reflux disease) Well controlled and stable Surgical History Status post left hip replacement Status post right hip replacement (~09/2021) History of laparoscopic appendectomy (06/24/21) Laparoscopic Appendectomy, Enterolysis, Repair of Umbilical Hernia - Juan Ivette Silvason, DO 06/24/2021 History of total knee replacement 11/11/2019: SAB + PNB. No issues per anesthesia postop progress note. Status post knee replacement H/O cervical spine surgery 2 or 3 levels, full rom. History of total right knee replacement (~10/2019) History of lumbar fusion X 2 WITH HARDWARE L2-L4 decompression-fusion 08/06/2020: Grade 1 view, Casey#2, ETT#8.0 atraumatic x 1. No issues per anesthesia postop progress note. History of lithotripsy History of colonoscopy Family History Mother Family hx of colon cancer Father , age 65 Myocardial infarction Other No family history of adverse response to anesthesia No family history of bleeding disorder Denies family history of Ovarian cancer Prostate cancer Breast cancer Lung cancer Social History Smoking Status: Never smoker Second Hand Exposure: No; Do You Dip or Chew Tobacco: No; Hx Alcohol Use: No Hx Substance Use: No Preferred Language: Finnish Communication Ability: Effective Visual Impairment: Partially Limited Human Resource Management Instructor Required: No Beliefs That Will Affect Care: None marital status: Single Current Living Situation: Spouse current occupational status: retired and disabled current occupation: [email or web address] How many Children do You have: 1 Other Information That Helps Us Care for You: No Feels Safe at Home: Yes Safety Concerns: Feels Safe At This Time Childhood Exposure to Second-Hand Smoke: No caffeine: Yes Dental Care, Regularly: Yes Physical Activity Frequency: Does not Exercise Seatbelt Use: sometimes Sunscreen Use: No Assistive Devices: Cane and Walker Physical Exam Physical Exam: General: A&Ox3. NAD. Cooperative. HEENT: Atraumatic, normocephalic. Vision/hearing grossly intact Pulm: Diminished due to pain on deep inspiration at lower ribs, but without rhonchi/rales. Trace end expiratory wheezes. Symmetrical chest rise. No increased work of breathing. No respiratory distress. Thorax: Bilateral anterior lower ribs tender to palpation Cardiac: RRR, -mrg. Radial pulses intact and symmetrical. No JVD Abdominal: Nontender, nondistended, soft. BS present. Extremities: No pitting edema bilaterally. Distal extremity strength/sensation grossly intact without asymmetry. Results & Data Results & Data Vital Signs (Past 12 Hours) Vital Signs Temp Pulse Pulse Resp BP BP Pulse Ox 04/01/23 09:38 71 20 95/60 L 92 04/01/23 07:42 78 04/01/23 07:36 87 20 111/70 92 04/01/23 07:17 36.9 C 77 19 99/56 L 97 O2 Del Method 04/01/23 09:38 Room Air 04/01/23 07:42 04/01/23 07:36 Room Air 04/01/23 07:17 Room Air PG Care Time/CCT Total # of Minutes Spent Total Time Spent with Patient: Total time spent is greater than 50% in coordination of care (as documented) at patient's floor/unit and/or counseling patient: Coding Level of Care Code 31507 INT INP/OBS CARE 3/75MIN Diagnoses Dyspnea R06.00 NAHUN (acute kidney injury) N17.9 Generalized weakness R53.1 Cardiomyopathy, idiopathic I42.8 Elevated hemidiaphragm J98.6 H/O cervical spine surgery Z98.890 Hypertension I10 BPH (benign prostatic hyperplasia) N40.0 Anemia D64.9 Rheumatoid arthritis, involving unspecified site, unspecified rheumatoid factor presence M06.9 Rheumatoid arthritis location: unspecified site Rheumatoid factor presence: unspecified presence Anxiety F41.9 Hypogonadism (10) Rheumatoid arthritis Rheumatoid arthritis location: unspecified site Rheumatoid factor presence: unspecified presence Qualified Code(s): M06.9 - Rheumatoid arthritis, unspecified
[2023-04-01 11:28] LABS: Total Protein Urine Random 22.2 mg/dl (0-11.9)
[2023-04-01 11:34] LABS: Creatinine Urine Random 135.4 mg/dl; Protein Creatinine Ratio Urine 0.2 (0-0.2)
[2023-04-01] MEDS ORDERED: Heparin IV Adult Wt-Based Standard WITH Bolus Protocol IV STA (11:48)
[2023-04-01 11:51] LABS: D Dimer 1100 ug/L FEU (0-500)
--- NOTE | 2023-04-01 12:03 | XCELERA ---
[id number] [id number]
[2023-04-01 12:20] LABS: Partial Thromboplastin Ratio 1.1; Partial Thromboplastin Time 32.3 Seconds (21.0-31.0)
[2023-04-01] MEDS ORDERED: NALOXONE HCL 0.4 MG/1 ML VIAL/CARP IV PRN (12:23)
[2023-04-01] MEDS ORDERED: LIDOCAINE 5% 1 PATCH TD STA (12:28)
[2023-04-01] MEDS ORDERED: HEPARIN SOD (PORCINE) 1000 UNIT/ML IV ONE (12:30)
[2023-04-01] MEDS: HEPARIN SODIUM/DEXTROSE 25,000 UNITS/500 ML BAG IV SCH (13:12)
[2023-04-01] MEDS ORDERED: diazePAM 5 MG TABLET PO PRN (14:18)
[2023-04-01] MEDS ORDERED: oxyCODONE HCL IR 5 MG TAB (IMMEDIATE RELEASE) PO PRN (14:18)
[2023-04-01] MEDS: MoRPHine SULFATE CR 15 MG TABCR PO SCH ×2 (15:56→21:21)
--- NOTE | 2023-04-01 16:05 | Electrocardiogram Report ---
Test Reason : Blood Pressure : / mmHG Vent. Rate : 084 BPM Atrial Rate : 084 BPM P-R Int : 220 ms QRS Dur : 158 ms QT Int : 384 ms P-R-T Axes : 050 036 028 degrees QTc Int : 453 ms Sinus rhythm with 1st degree A-V block Non-specific intra-ventricular conduction block Possible Lateral infarct , age undetermined Abnormal ECG When compared with ECG of 29-AUG-2022 21:32, [place] interval has increased Confirmed by Simba Caballero ([id number]) on 04/01/2023 4:05:02 PM Referred By: REFERRED SELF Confirmed By:Simba Caballero
[2023-04-01] MEDS: GABAPENTIN 100 MG CAP PO SCH ×2 (16:09→20:10)
--- NOTE | 2023-04-01 16:12 | Nephrology Consultation ---
Date of Consultation April 01, 2023 Assessment & Plan (1) NAHUN (acute kidney injury): * NAHUN related to hypotension and poor renal perfusion * Patient is nonoliguric and has had 1075 cc UO since presentation in EMD * Urinalysis negative for blood or protein. Urine sediment is acellular * Noncontrast abdominal CT revealed R kidney stones but was negative for obstruction * No recent exposure to NSAIDS or known nephrotoxic agents * FeNa 0.6% * Agree w/ holding Entresto, Spironolactone, Furosemide * Patient received 2 L 0.9 NS in EMD * Follow up PRP ordered for 1600 hrs * Monitor PRP, UO (2) Chronic kidney disease, stage II (mild): * Baseline Cr 1.1 w/ EGFR 78 cc/min (3) Acute hyponatremia: * Likely related to poor renal perfusion * Patient is neurologically intact * Will order urine osmolality * Monitor PRP (4) Hypertension: * Currently relative hypotension. Agree w/ holding BP medications as outlined above (5) Chronic systolic heart failure: * Admission echocardiogram shows recovered LVEF * CXR film reviewed. No overt pulmonary edema following IV hydration * Hold Entresto (6) BPH (benign prostatic hyperplasia): * Currently no difficulty voiding * Remains on Tamsulosin therapy (7) Pulmonary emboli: * h/o PE 03/15 - on heparin gtt History of Present Illness Reason for Consultation: NAHUN/CKD Attending Physician: Ike Doshi MD History of Present Illness Mr. Moses is a 62 year old white male who is seen at the request of Dr. Howell for evaluation of NAHUN/CKD. Information for the HPI is obtained from direct patient interview and review of the EMR. HPI is summarized as follows: Mr. Moses has CKD stage G2 (mild impairment). His baseline Cr has been 1.1 w/ EGFR 78 cc/min. He has not required Nephrology evaluation in the past. Mr. Moses medical history is significant for alcoholic CMP, PE 03/15, HTN, chronic back pain managed w/ opiate therapy, OA of the hips s/p bilateral NISA, RA (prednisone), BPH, chronic anemia. Mr. Moses reports a one week h/o epigastric pain radiating to the flanks accompanied by progressive weakness. He has experienced some mild chest discomfort as well. EMD evaluation revealed BP 95/60, Na 127, Cr 5.25. Urinalysis was negative for blood or protein. Abdominal CT without contrast revealed nonobstructive R kidney stones. No hydronephrosis noted. CXR revealed stable CMG w/ chronic elevation of R hemidiaphragm. No overt CHF. Echocardiogram revealed LVEF 55-60%, no RWMA, mild LVH, mild TR. Patient was administered 2 L 0.9NS in the EMD and admission was advised. Primary service has held Entresto, Labetalol, Spironolactone and Lasix due to relative hypotension and NAHUN/CKD. Allergies Allergy/AdvReac Type Severity Reaction Status Date / Time No Known Drug Allergies Allergy Verified 03/24/23 13:47 Home Medications Medication Instructions Recorded Confirmed Type multivitamin 1 tab PO QAM 01/19/20 03/24/23 History duloxetine 30 mg capsule,delayed 30 mg PO HS 06/28/20 03/24/23 History release (Cymbalta) ashwagandha root extract 300 mg 300 mg PO HS 05/30/21 03/24/23 History capsule ferrous sulfate 325 mg (65 mg 325 mg PO QAM 05/30/21 03/24/23 History iron) tablet nitroglycerin 0.4 mg sublingual 0.4 mg sublingual Q5M PRN chest 01/01/22 03/24/23 Rx tablet pain #25 tabs diazepam 5 mg tablet 5 mg PO BID PRN anxiety #60 tabs 01/30/22 04/01/23 Rx omeprazole 20 mg capsule,delayed 20 mg PO BID #180 caps 03/19/22 04/01/23 Rx release albuterol sulfate 90 mcg/actuation 2 puff inhalation Q6H PRN 03/21/22 03/24/23 Rx aerosol inhaler shortness of breath or wheezing #6.7 grams spironolactone 25 mg tablet 25 mg PO QAM #180 tabs 05/21/22 04/01/23 Rx (Aldactone) sacubitril 97 mg-valsartan 103 mg 1 tab PO BID #180 tabs 06/20/22 04/01/23 Rx tablet (Entresto) mometasone 0.1 % topical cream 1 applic topical DAILY #45 grams 06/24/22 03/24/23 Rx labetalol 100 mg tablet 100 mg PO BID #180 tabs 06/27/22 04/01/23 Rx gabapentin 100 mg capsule 100 mg PO QAM #90 caps 09/04/22 04/01/23 Rx gabapentin 300 mg capsule 300 mg PO TID #90 caps 09/04/22 04/01/23 Rx diclofenac sodium 1 % topical gel 2 g topical QID PRN Pain 10/16/22 04/01/23 History (Arthritis Pain (diclofenac)) prednisone 1 mg tablet 4 mg (4 x 1 mg) PO DAILY #120 tabs 11/18/22 04/01/23 Rx ondansetron 4 mg disintegrating 4 mg PO Q8H PRN nausea and 12/11/22 04/01/23 Rx tablet vomiting 4 days #20 tabs tamsulosin 0.4 mg capsule (Flomax) 0.8 mg (2 x 0.4 mg) PO DAILY #180 12/29/22 04/01/23 Rx caps amoxicillin 500 mg tablet 2,000 mg (4 x 500 mg) PO 02/06/23 04/01/23 Rx DIRECTED PRN 1 HOUR PRIOR TO DENTAL WORK. #4 tabs furosemide 20 mg tablet 20 mg PO DAILY 02/18/23 04/01/23 History memantine 10 mg tablet (Namenda) 10 mg PO BID #180 tabs 03/12/23 04/01/23 Rx morphine 30 mg tablet,extended 30 mg PO Q8H #90 tabs 03/12/23 04/01/23 Rx release (MS Contin) oxycodone 20 mg tablet 20 mg PO QID PRN pain #120 tabs 03/12/23 04/01/23 Rx testosterone 50 mg/5 gram (1 %) 1 packet transdermal QAM #300 grams 03/12/23 04/01/23 Rx transdermal gel amoxicillin 875 mg-potassium 1 tab PO BID #20 tabs 03/18/23 04/01/23 Rx clavulanate 125 mg tablet cholecalciferol (vitamin D3) 125 125 mcg PO 2XWK #30 tabs 03/20/23 04/01/23 Rx mcg (5,000 unit) tablet (Vitamin D3) doxycycline hyclate 100 mg tablet 100 mg PO BID #20 tabs 03/25/23 04/01/23 Rx Patient History Medical History Dyspnea Sinusitis, acute Diverticulitis Low testosterone Skin tear of forearm without complication Osteoporosis Closed left hip fracture Chest pain at rest Fracture of femoral neck, left Femoral neck fracture C. difficile diarrhea C. difficile enteritis NAHUN (acute kidney injury) Acute hyperkalemia Hypertension Cellulitis Elevated hemidiaphragm Right Atypical chest pain Chest pain Acquired deviated nasal septum Chronic back pain hx pain pump -- worked for 7 days and then became infected and was removed. unable to reinsert. done in [place] "a long time ago" History of COVID-19 05/2021 asymptomatic. tested positive incidentally while being inpatient with appendicitis Congestive heart failure Sepsis associated hypotension Acute hypotension Encounter for pre-operative examination Restrictive airway disease Per records > Pt denies Per 06/2020 PFTS: Moderate restrictive physiology with bronchodilator response and decreased DLCO Elevated hemidiaphragm Kyphosis deformity of spine Sprain of right knee LBBB (left bundle branch block) Cardiomyopathy, idiopathic Resolved -- LVEF 55% to 60% on 2 D echo 11/04/2019 Rheumatoid arthritis Steroid dependent- follows with rheum - Dr. Roman Chronic back pain Spinal stenosis of lumbar region at multiple levels Back pain Chest pain Chronic use of steroids DVT prophylaxis Cardiomyopathy Nonischemic- resolved Kidney stones No recent issues GERD (gastroesophageal reflux disease) Well controlled and stable Surgical History Status post left hip replacement Status post right hip replacement (~09/2021) History of laparoscopic appendectomy (06/24/21) Laparoscopic Appendectomy, Enterolysis, Repair of Umbilical Hernia - Juan Jones, 06/24/2021 History of total knee replacement 11/11/2019: SAB + PNB. No issues per anesthesia postop progress note. Status post knee replacement H/O cervical spine surgery 2 or 3 levels, full rom. History of total right knee replacement (~10/2019) History of lumbar fusion X 2 WITH HARDWARE L2-L4 decompression-fusion 08/06/2020: Grade 1 view, Casey#2, ETT#8.0 atraumatic x 1. No issues per anesthesia postop progress note. 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 Required: No Beliefs That Will Affect Care: None marital status: Single Current Living Situation: Spouse current occupational status: retired and disabled current occupation: [employer] How many Children do You have: 1 Feels Safe at Home: Yes Childhood Exposure to Second-Hand Smoke: No caffeine: Yes Dental Care, Regularly: Yes Physical Activity Frequency: Does not Exercise Seatbelt Use: sometimes Sunscreen Use: No Assistive Devices: Cane and Walker Review of Systems Constitutional: no fever Eyes: no worsening vision Ear, Nose, Mouth, Throat: no problem reported Respiratory: no cough and no dyspnea Cardiovascular: + chest pain and + dyspnea on exertion Gastrointestinal: + abdominal pain; no nausea, no vomiting and no diarrhea/loose stools Genitourinary: no dysuria, no urinary hesitancy or no hematuria Integumentary: no rash Neurologic: no problem reported Physical Exam Constitutional: not in distress Eyes: PERRL, conjunctivae normal, anicteric sclerae ENMT: external ear and nose normal, oropharynx normal Neck: trachea midline, no thyromegaly Respiratory: normal respiratory effort, lungs clear to auscultation Cardiovascular: RRR, no murmur, no edema Gastrointestinal (Abdomen): normal bowel sounds, soft, nontender, no hepatosplenomegaly Musculoskeletal: Extremities: no cyanosis and no clubbing Neurologic: Speech / Cognition: normal speech and normal cognition Results & Data Vital Signs (Past 12 Hours) Vital Signs Temp Pulse Pulse Resp BP BP Pulse Ox 04/01/23 09:38 71 20 95/60 L 92 04/01/23 07:42 78 04/01/23 07:36 87 20 111/70 92 04/01/23 07:17 36.9 C 77 19 99/56 L 97 O2 Del Method 04/01/23 09:38 Room Air 04/01/23 07:42 04/01/23 07:36 Room Air 04/01/23 07:17 Room Air Laboratory Results Laboratory Results WBC 6.54 K/ul (4.8-10.8) 04/01/23 07:38 RBC 3.23 M/uL (4.70-6.10) L 04/01/23 07:38 Hgb 10.2 g/dl (14.0-18.0) L 04/01/23 07:38 Hct 29.3 % (42.0-52.0) L 04/01/23 07:38 MCV 90.7 fL (80.0-100.0) 04/01/23 07:38 MCH 31.6 pg (25.0-34.0) 04/01/23 07:38 MCHC 34.8 g/dL (32.0-36.0) 04/01/23 07:38 RDW Std Deviation 42.8 fL (36.4-46.3) 04/01/23 07:38 RDW Coeff of Jaja 12.9 % (11.5-14.5) 04/01/23 07:38 Plt Count 214 K/uL (130-400) 04/01/23 07:38 MPV 9.6 fL (9.4-12.4) 04/01/23 07:38 Immature Gran % (Auto) 0.5 % 04/01/23 07:38 Neut % (Auto) 62.1 % 04/01/23 07:38 Lymph % (Auto) 18.7 % 04/01/23 07:38 [place] % (Auto) 11.8 % 04/01/23 07:38 Eos % (Auto) 6.4 % 04/01/23 07:38 Baso % (Auto) 0.5 % 04/01/23 07:38 Neut # (Auto) 4.07 K/uL (1.40-6.50) 04/01/23 07:38 Lymph # (Auto) 1.22 K/uL (1.20-3.40) 04/01/23 07:38 [place] # (Auto) 0.77 K/uL (0.11-0.59) H 04/01/23 07:38 Eos # (Auto) 0.42 K/uL (0.00-0.50) 04/01/23 07:38 Baso # (Auto) 0.03 K/uL (0.00-0.20) 04/01/23 07:38 Immature Gran # (Auto) 0.03 K/uL (0.01-0.20) 04/01/23 07:38 APTT 32.3 Seconds (21.0-31.0) H 04/01/23 10:38 PTT Ratio 1.1 04/01/23 10:38 D-Dimer 1100 ug/L FEU (0-500) H* 04/01/23 10:38 Sodium 127 mmol/L (136-145) L 04/01/23 07:38 Potassium 5.1 mmol/L (3.5-5.1) 04/01/23 07:38 Chloride 94 mmol/L (98-107) L 04/01/23 07:38 Carbon Dioxide 26 mmol/L (21-32) 04/01/23 07:38 Anion Gap 7 (3-11) 04/01/23 07:38 BUN 68 mg/dl (6-23) H 04/01/23 07:38 Creatinine 5.25 mg/dl (0.6-1.4) H* 04/01/23 07:38 Est Cr Clr Drug Dosing Not Reportable 04/01/23 07:38 Est GFR ( Amer) 12.4 ml/min 04/01/23 07:38 Est GFR (Non-Af Amer) 10.7 ml/min 04/01/23 07:38 BUN/Creatinine Ratio 13.0 (10-20) 04/01/23 07:38 Glucose 107 mg/dl (70-99(Fasting)) H 04/01/23 07:38 Osmolality 290 mOsm/kg (280-300) 04/01/23 10:34 Calcium 8.0 mg/dl (8.6-10.3) L 04/01/23 07:38 Magnesium 2.2 mg/dl (1.7-2.4) 04/01/23 07:38 Total Bilirubin 0.4 mg/dl (0.2-1.0) 04/01/23 07:38 AST 27 U/L (13-39) 04/01/23 07:38 ALT 15 U/L (7-52) 04/01/23 07:38 Alkaline Phosphatase 72 U/L (34-104) 04/01/23 07:38 Troponin I High Sens 4.5 pg/ml (0-20) 04/01/23 07:38 B-Natriuretic Peptide 110 pg/ml (0-100) H 04/01/23 10:34 Total Protein 6.3 gm/dl (6.0-8.3) 04/01/23 07:38 Albumin 3.7 gm/dl (3.4-5.0) 04/01/23 07:38 Globulin 2.6 gm/dl (2.5-4.0) 04/01/23 07:38 Albumin/Globulin Ratio 1.4 (0.9-2) 04/01/23 07:38 Lipase 14 U/L (11-82) 04/01/23 07:38 Procalcitonin 0.26 ng/ml (0-0.5) 04/01/23 10:34 Urine Color Yellow 04/01/23 08:35 Urine Appearance Clear (Clear) 04/01/23 08:35 Urine pH 5.0 (4.5-7.5) 04/01/23 08:35 Ur Specific [place] 1.011 (1.000-1.030) 04/01/23 08:35 Urine Protein Negative (Negative) 04/01/23 08:35 Urine Glucose (UA) Negative (Negative) 04/01/23 08:35 Urine Ketones Negative (Negative) 04/01/23 08:35 Urine Blood Negative (Negative) 04/01/23 08:35 Urine Nitrite Negative (Negative) 04/01/23 08:35 Urine Bilirubin Negative (Negative) 04/01/23 08:35 Urine Urobilinogen Negative (Negative) 04/01/23 08:35 Ur Leukocyte Esterase Negative (Negative) 04/01/23 08:35 Urine Osmolality 278 mOsm/kg (500-800) L 04/01/23 08:35 Ur Random Creatinine 135.4 mg/dl 04/01/23 08:35 U Random Total Protein 22.2 mg/dl (0-11.9) H 04/01/23 08:35 Ur Random Sodium 22 mmol/L 04/01/23 08:35 Ur Random Sodium Cancelled 04/01/23 08:35 Protein/Creatinin Ratio 0.2 (0-0.2) 04/01/23 08:35 Adenovirus (PCR) Not Detected (NotDetected) 04/01/23 07:38 B. pertussis DNA (PCR) Not Detected (NotDetected) 04/01/23 07:38 B.parapertussis DNA PCR Not Detected (NotDetected) 04/01/23 07:38 C. pneumoniae DNA (PCR) Not Detected (NotDetected) 04/01/23 07:38 Coronavirus OC43 (PCR) Not Detected (NotDetected) 04/01/23 07:38 Coronavirus HKU1 (PCR) Not Detected (NotDetected) 04/01/23 07:38 Coronavirus 229E (PCR) Not Detected (NotDetected) 04/01/23 07:38 SARS-CoV-2 (PCR) Not Detected (NotDetected) 04/01/23 07:38 Coronavirus NL63 (PCR) Not Detected (NotDetected) 04/01/23 07:38 Human Metapneumovir PCR Not Detected (NotDetected) 04/01/23 07:38 Influenza Type A (PCR) Not Detected (NotDetected) 04/01/23 07:38 Influenza Type B (PCR) Not Detected (NotDetected) 04/01/23 07:38 M. pneumoniae (PCR) Not Detected (NotDetected) 04/01/23 07:38 Parainfluenza 1 (PCR) Not Detected (NotDetected) 04/01/23 07:38 Parainfluenza 2 (PCR) Not Detected (NotDetected) 04/01/23 07:38 Parainfluenza 3 (PCR) Not Detected (NotDetected) 04/01/23 07:38 Parainfluenza 4 (PCR) Not Detected (NotDetected) 04/01/23 07:38 RSV (PCR) Not Detected (NotDetected) 04/01/23 07:38 Entero/Rhino (PCR) Not Detected (NotDetected) 04/01/23 07:38 Impressions Chest X-Ray 04/01/23 07:38 XR chest 1V portable HISTORY: Atypical chest pain. COMPARISON: Chest 03/24/2023. FINDINGS: There are low lung volumes. No pneumothorax. The heart remains enlarged. The left lung is clear. No evidence for pulmonary edema. There is chronic elevation of the right hemidiaphragm with right basilar linear densi ties. This favors subsegmental atelectasis. This is similar to the prior study. IMPRESSION: 1. Stable cardiomegaly. 2. Chronic elevation of the right hemidiaphragm and right basilar linear densiti es persist. This favors subsegmental atelectasis. A pneumonia could also have a similar appearance in the appropriate clinical setting. ACT 112: Negative or not required by law. Electronically signed by: Dionisio Lou M.D. 04/01/2023 8:35 AM Abdomen/Pelvis CT 04/01/23 08:[address] WITHOUT CONTRAST CT DOSE: 1373.83 mGy.cm HISTORY: Weakness. epigastric pain; acute renal failure TECHNIQUE: Multiaxial CT images of the abdomen and pelvis were performed without contrast. A dose lowering technique was utilized adhering to the principles of ALARA. COMPARISON STUDY: Abdomen and pelvis CT 08/19/2022. FINDINGS: A few subcentimeter pulmonary nodules within the lung bases are again noted and measures up to 6 mm. These are not significantly changed. Mild elevation the right hemidiaphragm with right basilar linear densities suggesting subsegmental atelectasis or scarring. This is also similar to the prior study. No pneumoperitoneum. No pneumatosis. There are bilateral total hip arthroplasties again noted. One of the left acetabular screws protrudes into the left iliac psoas muscle. This remains unchanged. L2-S1 posterior decompression and fusion with pedicle screws and rods. The bilateral S1 pedicle screws are fractured. Stable 1 cm sclerotic focus within the L1 vertebral body. This favors a bone island. No new suspicious lytic or blastic osseous lesions. There are old, healed right-sided rib fractures. The heart remains mildly enlarged. Tiny fat-containing umbilical hernia. Partially visualized moderate right hydrocele again noted. This is not significantly changed. Levoscoliosis of the lumbar spine. The unenhanced liver, gallbladder, pancreas, spleen, and adrenal glands are unremarkable. There is a 3 mm stone within the lower pole of the right kidney. No left renal calculi. No ureteral calculi. No hydronephrosis. No retroperitoneal lymphadenopathy. Calcified plaque within the normal caliber abdominal aorta. The bladder is not well visualized due to metallic artifact but appears unremarkable. No pelvic free fluid or pelvic lymphadenopathy identified. Suboptimal evaluation for bowel pathology due to the lack of intravenous and oral contrast. However, there is no definite bowel wall thickening or obstruction. A few colonic diverticula. No evidence for acute diverticulitis. Prior appendectomy. IMPRESSION: 1. Overall, no significant change compared to the prior study. 2. No bowel wall thickening or obstruction. 3. Prior appendectomy. 4. Right-sided nephrolithiasis. No ureteral stones. No hydronephrosis. 5. L2-S1 posterior decompression and fusion with pedicle screws and rods. The bilateral S1 pedicle screws are fractured. 6. Additional findings as described above. ACT 112: Negative or not required by law. Electronically signed by: Dionisio Lou M.D. 04/01/2023 9:02 AM PG Care Time/CCT Total # of Minutes Spent Total Time Spent with Patient: Total time spent is greater than 50% in coordination of care (as documented) at patient's floor/unit and/or counseling patient: Coding Level of Care Code 90936 IN/OBS CONSULT LVL 5,80M Diagnoses NAHUN (acute kidney injury) N17.9 Chronic kidney disease, stage II (mild) N18.2 Acute hyponatremia E87.1 Hypertension I10 Chronic systolic heart failure I50.22 BPH (benign prostatic hyperplasia) N40.0 Pulmonary emboli I26.99
[2023-04-01] MEDS: ACETAMINOPHEN 325 MG TAB PO PRN (16:56)
[2023-04-01 20:06] LABS: Partial Thromboplastin Ratio 4.3
[2023-04-01] MEDS: PANTOprazole 40 MG TAB PO SCH (20:09)
[2023-04-01] MEDS: DULoxetine HCL 30 MG CAP PO SCH (20:10)
[2023-04-01] MEDS: MEMANTINE HCL 10 MG TAB PO SCH (20:10)
[2023-04-01 20:21] LABS: Partial Thromboplastin Time 121.6 Seconds (21.0-31.0)
[2023-04-01 20:30] LABS: Calcium 8.1 mg/dl (8.6-10.3); Potassium 5.6 mmol/L (3.5-5.1)
[2023-04-01 20:36] LABS: BUN Creatinine Ratio 17.7 (10-20); Creatinine Clr Calc Pharmacy 22.5 ml/min; Est GFR (African American) 21.4 ml/min; Est GFR (Non-African American) 18.5 ml/min
[2023-04-02] MEDS ORDERED: ONDANSETRON INJ 2 MG/ML 2 ML VIAL IV STA (02:18)
[2023-04-02] MEDS: ACETAMINOPHEN 325 MG TAB PO PRN ×2 (02:25→11:53)
[2023-04-02 05:06] LABS: Basophils # (auto) 0.03 K/uL (0.00-0.20); Basophils % (auto) 0.6 %; Eosinophils # (auto) 0.31 K/uL (0.00-0.50); Eosinophils % (auto) 6.7 %; Hematocrit (blood only) 29.2 % (42.0-52.0); Hemoglobin 9.8 g/dl (14.0-18.0); Immature Granulocytes # (auto) 0.02 K/uL (0.01-0.20); Immature Granulocytes % (auto) 0.4 %; Lymphocytes # (auto) 0.99 K/uL (1.20-3.40); Lymphocytes % (auto) 21.3 %; Mean Corpuscular Hemoglobin 31.2 pg (25.0-34.0); Mean Corpuscular Hgb Conc 33.6 g/dL (32.0-36.0); Mean Platelet Volume 9.7 fL (9.4-12.4); Monocytes # (auto) 0.55 K/uL (0.11-0.59); Monocytes % (auto) 11.8 %; Neutrophils # (auto) 2.75 K/uL (1.40-6.50); Neutrophils % (auto) 59.2 %; Platelet Count 200 K/uL (130-400); RDW Coefficient of Variation 12.6 % (11.5-14.5); RDW Standard Deviation 43.2 fL (36.4-46.3); Red Blood Count 3.14 M/uL (4.70-6.10); White Blood Count 4.65 K/ul (4.8-10.8)
[2023-04-02 05:31] LABS: BUN Creatinine Ratio 25.7 (10-20); Calcium 8.6 mg/dl (8.6-10.3); Creatinine Clr Calc Pharmacy 38.4 ml/min; Est GFR (Non-African American) 36.2 ml/min; Potassium 5.2 mmol/L (3.5-5.1)
[2023-04-02 05:50] LABS: Partial Thromboplastin Ratio 1.7
[2023-04-02 05:55] LABS: Partial Thromboplastin Time 47.2 Seconds (21.0-31.0)
[2023-04-02] MEDS: MoRPHine SULFATE CR 15 MG TABCR PO SCH ×3 (06:16→21:31)
[2023-04-02 06:55] LABS: Appearance Urine Clear (Clear); Bilirubin Urine Negative (Negative); Blood Urine Negative (Negative); Color Urine Yellow; Glucose Urine UA Negative (Negative); Ketones Urine Negative (Negative); Leukocyte Esterase Urine Negative (Negative); Nitrite Urine Negative (Negative); Protein Urine Negative (Negative); Specific Gravity Urine 1.015 (1.000-1.030); Urobilinogen Urine Negative (Negative)
[2023-04-02] MEDS: GABAPENTIN 100 MG CAP PO SCH ×3 (08:21→21:28)
[2023-04-02] MEDS: MEMANTINE HCL 10 MG TAB PO SCH ×2 (08:22→21:28)
[2023-04-02] MEDS: TAMSULOSIN HCL 0.4 MG CAP PO SCH (08:22)
[2023-04-02] MEDS: PANTOprazole 40 MG TAB PO SCH ×2 (08:22→21:28)
[2023-04-02] MEDS ORDERED: predniSONE 1 MG TAB PO SCH (09:00)
--- NOTE | 2023-04-02 09:15 | Nephrology Progress Note ---
Date of Service April 02, 2023 Assessment & Plan (1) NAHUN (acute kidney injury): Plan: * NAHUN related to hypotension and poor renal perfusion * Patient is nonoliguric and has had 3200 cc UO last 24 hours * Urinalysis negative for blood or protein. Urine sediment is acellular * Noncontrast abdominal CT revealed R kidney stones but was negative for obstruction * No recent exposure to NSAIDS or known nephrotoxic agents * FeNa 0.6% * Agree w/ holding Entresto, Spironolactone, Furosemide * Patient received 2 L 0.9 NS in EMD * Will provide gentle hydration today * Monitor PRP, UO (2) Chronic kidney disease, stage II (mild): Plan: * Baseline Cr 1.1 w/ EGFR 78 cc/min (3) Acute hyponatremia: Plan: * Improved. Likely related to poor renal perfusion * Patient is neurologically intact * Monitor PRP (4) Hypertension: Plan: * Currently relative hypotension. Agree w/ holding BP medications as outlined above (5) Chronic systolic heart failure: Plan: * Admission echocardiogram shows recovered LVEF * CXR film reviewed. No overt pulmonary edema following IV hydration * Hold Entresto (6) BPH (benign prostatic hyperplasia): Plan: * Currently no difficulty voiding * Remains on Tamsulosin therapy (7) Pulmonary emboli: Plan: * h/o PE 03/15 - on heparin gtt Admission and Anticipated Discharge Date Admission Date: April 01, 2023 Subjective Mr. Moses was evaluated in his hospital room this morning. He was breathing comfortably on RA and reported that abdominal discomfort is mildly improved. Review of Systems Constitutional: no fever Eyes: no worsening vision Ear, Nose, Mouth, Throat: no problem reported Respiratory: no cough and no dyspnea Cardiovascular: + dyspnea on exertion; no chest pain Gastrointestinal: no abdominal pain, no nausea, no vomiting and no diarrhea/loose stools Genitourinary: no dysuria, no urinary hesitancy or no hematuria Integumentary: no rash Neurologic: no problem reported Physical Exam Constitutional: not in distress Eyes: PERRL, conjunctivae normal, anicteric sclerae ENMT: external ear and nose normal, oropharynx normal Neck: trachea midline, no thyromegaly Respiratory: normal respiratory effort, lungs clear to auscultation Cardiovascular: RRR, no murmur, no edema Gastrointestinal (Abdomen): normal bowel sounds, soft, nontender, no hepatosplenomegaly Musculoskeletal: Extremities: no cyanosis and no clubbing Neurologic: Speech / Cognition: normal speech and normal cognition Results & Data Vital Signs (Past 12 Hours) Vital Signs Temp Pulse Pulse Pulse Resp BP BP 04/02/23 07:47 36.6 C 74 16 97/58 L 04/02/23 03:26 36.7 C 84 18 111/62 04/02/23 00:00 75 04/01/23 23:48 36.7 C 73 20 140/80 04/01/23 22:25 Pulse Ox Pulse Ox O2 Del Method O2 Del Method 04/02/23 07:47 90 Room Air 04/02/23 03:26 90 Room Air 04/02/23 00:00 04/01/23 23:48 90 Room Air 04/01/23 22:25 93 Room Air Laboratory Results Laboratory Tests 04/01/23 04/01/23 04/02/23 07:38 19:20 04:30 WBC 4.65 L Hgb 9.8 L Hct Plt Count Sodium 132 L Potassium 5.2 H Chloride 103 Carbon Dioxide 26 BUN 49 H Creatinine 5.25 H* 3.33 H D 1.91 H D Glucose 111 H Calcium 8.6 Urine Protein Urine Glucose (UA) Urine Blood 04/02/23 04/02/23 04/02/23 04:30 04:30 Unknown WBC Hgb Hct 29.2 L Plt Count 200 Sodium Potassium Chloride Carbon Dioxide BUN Creatinine Glucose Calcium Urine Protein Negative Urine Glucose (UA) Negative Urine Blood Negative PG Care Time/CCT Total # of Minutes Spent Total Time Spent with Patient: Total time spent is greater than 50% in coordination of care (as documented) at patient's floor/unit and/or counseling patient: Coding Level of Care Code 63916 SUB INP/OBS CARE 3/50MIN Diagnoses NAHUN (acute kidney injury) N17.9 Chronic kidney disease, stage II (mild) N18.2 Acute hyponatremia E87.1 Hypertension I10 Chronic systolic heart failure I50.22 BPH (benign prostatic hyperplasia) N40.0 Pulmonary emboli I26.99
[2023-04-02] MEDS ORDERED: predniSONE 20 MG TAB PO STA (11:27)
[2023-04-02] MEDS ORDERED: SODIUM CHLORIDE 0.9% 1,000 ML IV SCH (11:30)
[2023-04-02] MEDS: HEPARIN SODIUM/DEXTROSE 25,000 UNITS/500 ML BAG IV SCH (11:51)
[2023-04-02] MEDS: ONDANSETRON INJ 2 MG/ML 2 ML VIAL IV PRN ×2 (16:27→21:31)
--- NOTE | 2023-04-02 20:27 | Hospitalist Progress Note ---
Date of Service April 02, 2023 Assessment & Plan (1) Dyspnea: Plan: Recently treated for URI/sinusitis/bronchitis with multiple abx courses throughout February without resolution of his dyspnea. CXR here w/o infiltrates. O2 sats in RA at rest wnl. D-dimer elevated at 1100. h/o PEs in 2021 - etiology?? Took Eliquis at least through spring 2022 - no longer on such. CrCl still not adequate enough to perform a repeat CTA study. Thus, cont hydration, await Cr to improve, and cont empiric heparin infusion until definitive study to r/o PE is complete. If CTA is negative -- etiology for dyspnea?? (2) NAHUN (acute kidney injury): Plan: Creatinine baseline <1.2 Admission Cr 5.25. Cr improved nicely with IV fluids and supportive care. U/a bland. CT a/p without signs of obstruction. In light of recent illness as outpatient suspect pre-renal etiology for NAHUN in the setting of multiple potentially nephrotic agents including ARB, etc. Appreciate nephro assistance. Cont IVF. Repeat BMP. (3) Generalized weakness: Plan: Present for several weeks. Was treated for URI/sinusitis/bronchitis during this time period without improvement in weakness, etc. Exact cause of weakness? Worsening renal function? Hyponatremia? hypotension? addisonian crisis in midst of significant physical illness last few weeks and not having stress dose steroids? combination of factors? suspect combo Recheck all labs in am. Add a CRP level. provide stress dose steroids - give 40mg po x 1 of prednisone today, then slow taper next few days. (4) Cardiomyopathy, idiopathic: Plan: history of chronic systolic heart failure Pre-2019 echos with EF 35-40% Echos since that time with preserved EF 55-60% Follows with cardiology and had been taking Entresto 05111 twice daily, spironolactone 25 mg, Lasix 20 daily, labetalol. previous systolic CHF was a Non-Ischemic Cardiomyopathy as he had Normal Coronary Arteries on Cardiac Catheterization 2004. LBBB is chronic per records. holding entresto, aldactone, lasix due to NAHUN/hypotension/hyponatremia/etc. (5) Elevated hemidiaphragm: Plan: as noted chronic (6) H/O cervical spine surgery: Plan: History of chronic cervical and lumbar pain, hx cervical decompression Chronically on MS Contin 30 every 8+ oxycodone 20 mg 4 times daily. Patient was recently switched to MS Contin/oxycodone IR from morphine SR/IR, 01/2023, initially with improved pain control but pt feels he has had some sedation with this since. Oxycodone IR and morphine XR continued Continue Duloxetine 30 mg nightly, gabapentin 300 mg 3 times daily +100 mg at bedtime --> renally adjusted to 100 mg 3 times daily due to NAHUN Adjust/titrate as needed once creatinine improves (7) Hypertension: Plan: all anti-hypertensives held due to hypotension cont flomax cautiously (8) BPH (benign prostatic hyperplasia): Plan: Continue Flomax. no signs of obstruction on CT a/p at admission. (9) Anemia: Plan: Has been anemic since prior to 2019. Has been steadily worsening since then. Last EGD 2019 - 1 gastric polyp (Removed). Last colonoscopy - 2019 - nonbleeding internal hemorrhoids, diverticuli of ascending colon. 5 year surveillance recommended. mother had colon ca per records last set of Fe Studies indicated Fe def - will recheck in am. (10) Rheumatoid arthritis: Plan: Rheumatoid arthritis On prednisone 4 mg daily chronically "for years" will provide stress dosing as above (11) Anxiety: Plan: Diazepam 5 mg twice daily prn - chronic med for him (12) Hypogonadism: Plan: On testosterone at home hold while here (13) GERD (gastroesophageal reflux disease): Plan: cont PPI last EGD 2019 via [facility] (gastric polyp only) (14) Hyponatremia: Plan: 2nd NAHUN improving cont isotonic fluids BMP am (15) Hyperkalemia: Plan: 2nd NAHUN improving BMP am holding ARB, diuretics, etc for now Plan PT/OT evals - request DVT proph - heparin drip Admission and Anticipated Discharge Date Admission Date: April 01, 2023 Subjective patient was sleeping upon arrival he easily awoke he reports feeling better than at admission but still not back to normal he continues with intermittent nausea has had this symptom for several weeks or longer associated with an upper abdominal discomfort reports his appetite has been off since the nausea etc started a few weeks ago during this same time frame he has had dyspnea on exertion no cough no pleuritic chest pains no central/sternal chest pain tele since arrival - NSR of note - office notes reviewed showing the following (Dr Romero) - " He was seen on 03/12/2023 for routine evaluation. At the time it was noted that he had a upper respiratory infection for the previous month. He was placed on cephalexin for 10 days but it did not improve his symptoms. He was then transitioned to Augmentin 875 mg twice daily but his symptoms do worsened. Over the last 2 days he has felt moderately ill with increasing headache, increasing sinus pressure, and chest congestion. Is also developed mildly loose stools and is concerned of recurrence for C. difficile." Dr Romero ordered a c diff and this returned neg on 03/26/23 Pt does confirm daily use of prednisone "for years." Dx with RA 10-20 years ago (couldn't provide exact year). Review of Systems Review of Systems: gen - no fevers; weak, fatigue cv - no chest pain pulm - no dyspnea at rest -- just ROMERO GI - "discomfort" - no true pain - no dysuria Physical Exam Physical Exam: gen - NAD, pleasant mouth - MMM neck - no JVD heart - RRR, s1 s2 lungs - CTA b/l abd - slight tenderness high epigastric region, ND, BS+, no HSM ext - no edema, pulses 2+ b/l skin - mild pallor, no rash psych - a/o x 3 Results & Data Results & Data Vital Signs (Past 12 Hours) Vital Signs Temp Pulse Pulse Resp BP BP Pulse Ox 04/02/23 19:43 36.8 C 78 18 155/82 H 94 04/02/23 16:31 64 04/02/23 15:14 36.9 C 91 H 16 159/82 H 90 04/02/23 12:21 36.5 C 80 16 104/66 91 O2 Del Method 04/02/23 19:43 Room Air 04/02/23 16:31 04/02/23 15:14 Room Air 04/02/23 12:21 Room Air Laboratory Results Laboratory Results - last 48 hr 04/01/23 04/01/23 04/01/23 07:38 08:35 08:35 WBC 6.54 RBC 3.23 L Hgb 10.2 L Hct 29.3 L MCV 90.7 MCH 31.6 MCHC 34.8 RDW Std Deviation 42.8 RDW Coeff of Jaja 12.9 Plt Count 214 MPV 9.6 Immature Gran % (Auto) 0.5 Neut % (Auto) 62.1 Lymph % (Auto) 18.7 [place] % (Auto) 11.8 Eos % (Auto) 6.4 Baso % (Auto) 0.5 Neut # (Auto) 4.07 Lymph # (Auto) 1.22 [place] # (Auto) 0.77 H Eos # (Auto) 0.42 Baso # (Auto) 0.03 Immature Gran # (Auto) 0.03 APTT PTT Ratio D-Dimer Sodium 127 L Potassium 5.1 Chloride 94 L Carbon Dioxide 26 Anion Gap 7 BUN 68 H Creatinine 5.25 H* Est Cr Clr Drug Dosing Not Reportable Est GFR ( Amer) 12.4 Est GFR (Non-Af Amer) 10.7 BUN/Creatinine Ratio 13.0 Glucose 107 H Osmolality Calcium 8.0 L Magnesium 2.2 Total Bilirubin 0.4 AST 27 ALT 15 Alkaline Phosphatase 72 Troponin I High Sens 4.5 B-Natriuretic Peptide Total Protein 6.3 Albumin 3.7 Globulin 2.6 Albumin/Globulin Ratio 1.4 Lipase 14 Procalcitonin Urine Color Yellow Urine Appearance Clear Urine pH 5.0 Ur Specific [place] 1.011 Urine Protein Negative Urine Glucose (UA) Negative Urine Ketones Negative Urine Blood Negative Urine Nitrite Negative Urine Bilirubin Negative Urine Urobilinogen Negative Ur Leukocyte Esterase Negative Urine Osmolality 278 L Ur Random Creatinine 135.4 U Random Total Protein 22.2 H Ur Random Sodium 22 Cancelled Protein/Creatinin Ratio 0.2 Adenovirus (PCR) Not Detected B. pertussis DNA (PCR) Not Detected B.parapertussis DNA PCR Not Detected C. pneumoniae DNA (PCR) Not Detected Coronavirus OC43 (PCR) Not Detected Coronavirus HKU1 (PCR) Not Detected Coronavirus 229E (PCR) Not Detected SARS-CoV-2 (PCR) Not Detected Coronavirus NL63 (PCR) Not Detected Human Metapneumovir PCR Not Detected Influenza Type A (PCR) Not Detected Influenza Type B (PCR) Not Detected M. pneumoniae (PCR) Not Detected Parainfluenza 1 (PCR) Not Detected Parainfluenza 2 (PCR) Not Detected Parainfluenza 3 (PCR) Not Detected Parainfluenza 4 (PCR) Not Detected RSV (PCR) Not Detected Entero/Rhino (PCR) Not Detected 04/01/23 04/01/23 04/01/23 10:34 10:38 19:20 WBC RBC Hgb Hct MCV MCH MCHC RDW Std Deviation RDW Coeff of Jaja Plt Count MPV Immature Gran % (Auto) Neut % (Auto) Lymph % (Auto) [place] % (Auto) Eos % (Auto) Baso % (Auto) Neut # (Auto) Lymph # (Auto) [place] # (Auto) Eos # (Auto) Baso # (Auto) Immature Gran # (Auto) APTT 32.3 H 121.6 H* PTT Ratio 1.1 4.3 D-Dimer 1100 H* Sodium 130 L Potassium 5.6 H Chloride 100 Carbon Dioxide 26 Anion Gap 4 BUN 59 H Creatinine 3.33 H D Est Cr Clr Drug Dosing 22.5 Est GFR ( Amer) 21.4 Est GFR (Non-Af Amer) 18.5 BUN/Creatinine Ratio 17.7 Glucose 112 H Osmolality 290 Calcium 8.1 L Magnesium Total Bilirubin AST ALT Alkaline Phosphatase Troponin I High Sens B-Natriuretic Peptide 110 H Total Protein Albumin Globulin Albumin/Globulin Ratio Lipase Procalcitonin 0.26 Urine Color Urine Appearance Urine pH Ur Specific [place] Urine Protein Urine Glucose (UA) Urine Ketones Urine Blood Urine Nitrite Urine Bilirubin Urine Urobilinogen Ur Leukocyte Esterase Urine Osmolality Ur Random Creatinine U Random Total Protein Ur Random Sodium Protein/Creatinin Ratio Adenovirus (PCR) B. pertussis DNA (PCR) B.parapertussis DNA PCR C. pneumoniae DNA (PCR) Coronavirus OC43 (PCR) Coronavirus HKU1 (PCR) Coronavirus 229E (PCR) SARS-CoV-2 (PCR) Coronavirus NL63 (PCR) Human Metapneumovir PCR Influenza Type A (PCR) Influenza Type B (PCR) M. pneumoniae (PCR) Parainfluenza 1 (PCR) Parainfluenza 2 (PCR) Parainfluenza 3 (PCR) Parainfluenza 4 (PCR) RSV (PCR) Entero/Rhino (PCR) 04/02/23 04/02/23 04:30 Unknown WBC 4.65 L RBC 3.14 L Hgb 9.8 L Hct 29.2 L MCV 93.0 MCH 31.2 MCHC 33.6 RDW Std Deviation 43.2 RDW Coeff of Jaja 12.6 Plt Count 200 MPV 9.7 Immature Gran % (Auto) 0.4 Neut % (Auto) 59.2 Lymph % (Auto) 21.3 [place] % (Auto) 11.8 Eos % (Auto) 6.7 Baso % (Auto) 0.6 Neut # (Auto) 2.75 Lymph # (Auto) 0.99 L [place] # (Auto) 0.55 Eos # (Auto) 0.31 Baso # (Auto) 0.03 Immature Gran # (Auto) 0.02 APTT 47.2 H* PTT Ratio 1.7 D-Dimer Sodium 132 L Potassium 5.2 H Chloride 103 Carbon Dioxide 26 Anion Gap 3 BUN 49 H Creatinine 1.91 H D Est Cr Clr Drug Dosing 38.4 Est GFR ( Amer) 42.0 Est GFR (Non-Af Amer) 36.2 BUN/Creatinine Ratio 25.7 H Glucose 111 H Osmolality Calcium 8.6 Magnesium Total Bilirubin AST ALT Alkaline Phosphatase Troponin I High Sens B-Natriuretic Peptide Total Protein Albumin Globulin Albumin/Globulin Ratio Lipase Procalcitonin Urine Color Yellow Urine Appearance Clear Urine pH 5.0 Ur Specific [place] 1.015 Urine Protein Negative Urine Glucose (UA) Negative Urine Ketones Negative Urine Blood Negative Urine Nitrite Negative Urine Bilirubin Negative Urine Urobilinogen Negative Ur Leukocyte Esterase Negative Urine Osmolality 460 L Ur Random Creatinine U Random Total Protein Ur Random Sodium Protein/Creatinin Ratio Adenovirus (PCR) B. pertussis DNA (PCR) B.parapertussis DNA PCR C. pneumoniae DNA (PCR) Coronavirus OC43 (PCR) Coronavirus HKU1 (PCR) Coronavirus 229E (PCR) SARS-CoV-2 (PCR) Coronavirus NL63 (PCR) Human Metapneumovir PCR Influenza Type A (PCR) Influenza Type B (PCR) M. pneumoniae (PCR) Parainfluenza 1 (PCR) Parainfluenza 2 (PCR) Parainfluenza 3 (PCR) Parainfluenza 4 (PCR) RSV (PCR) Entero/Rhino (PCR) PG Care Time/CCT Total # of Minutes Spent Total Time Spent with Patient: Total time spent is greater than 50% in coordination of care (as documented) at patient's floor/unit and/or counseling patient: Coding Level of Care Code 16144 SUB INP/OBS CARE 3/50MIN Diagnoses Dyspnea R06.00 NAHUN (acute kidney injury) N17.9 Generalized weakness R53.1 Cardiomyopathy, idiopathic I42.8 Elevated hemidiaphragm J98.6 H/O cervical spine surgery Z98.890 Hypertension I10 BPH (benign prostatic hyperplasia) N40.0 Anemia D64.9 Rheumatoid arthritis, involving unspecified site, unspecified rheumatoid factor presence M06.9 Rheumatoid arthritis location: unspecified site Rheumatoid factor presence: unspecified presence Anxiety F41.9 Hypogonadism GERD (gastroesophageal reflux disease) K21.9 Hyponatremia E87.1 Hyperkalemia E87.5 (10) Rheumatoid arthritis Rheumatoid arthritis location: unspecified site Rheumatoid factor presence: unspecified presence Qualified Code(s): M06.9 - Rheumatoid arthritis, unspecified
[2023-04-02] MEDS: DULoxetine HCL 30 MG CAP PO SCH (21:28)
[2023-04-03] MEDS: ONDANSETRON INJ 2 MG/ML 2 ML VIAL IV PRN ×3 (05:35→19:37)
[2023-04-03] MEDS: MoRPHine SULFATE CR 15 MG TABCR PO SCH ×3 (05:36→21:38)
[2023-04-03 07:37] LABS: Basophils # (auto) 0.02 K/uL (0.00-0.20); Basophils % (auto) 0.4 %; Eosinophils # (auto) 0.01 K/uL (0.00-0.50); Eosinophils % (auto) 0.2 %; Hematocrit (blood only) 29.2 % (42.0-52.0); Hemoglobin 10.1 g/dl (14.0-18.0); Immature Granulocytes # (auto) 0.02 K/uL (0.01-0.20); Immature Granulocytes % (auto) 0.4 %; Lymphocytes # (auto) 0.99 K/uL (1.20-3.40); Lymphocytes % (auto) 20.8 %; Mean Corpuscular Hgb Conc 34.6 g/dL (32.0-36.0); Mean Corpuscular Volume 89.6 fL (80.0-100.0); Mean Platelet Volume 9.5 fL (9.4-12.4); Monocytes # (auto) 0.67 K/uL (0.11-0.59); Monocytes % (auto) 14.1 %; Neutrophils # (auto) 3.04 K/uL (1.40-6.50); Neutrophils % (auto) 64.1 %; Platelet Count 205 K/uL (130-400); RDW Standard Deviation 39.9 fL (36.4-46.3); Red Blood Count 3.26 M/uL (4.70-6.10); White Blood Count 4.75 K/ul (4.8-10.8)
[2023-04-03] MEDS: TAMSULOSIN HCL 0.4 MG CAP PO SCH (08:11)
[2023-04-03] MEDS: GABAPENTIN 100 MG CAP PO SCH ×3 (08:12→19:40)
[2023-04-03] MEDS: PANTOprazole 40 MG TAB PO SCH ×2 (08:12→19:40)
[2023-04-03] MEDS: MEMANTINE HCL 10 MG TAB PO SCH ×2 (08:12→19:40)
[2023-04-03 08:13] LABS: BUN Creatinine Ratio 25.3 (10-20); Calcium 8.6 mg/dl (8.6-10.3); Creatinine Clr Calc Pharmacy 77.3 ml/min; Est GFR (African American) 97.7 ml/min; Est GFR (Non-African American) 84.3 ml/min; Potassium 4.6 mmol/L (3.5-5.1)
[2023-04-03 08:19] LABS: Ferritin 203.2 ng/ml (8-388)
--- NOTE | 2023-04-03 08:55 | Nephrology Progress Note ---
Date of Service April 03, 2023 Assessment & Plan (1) NAHUN (acute kidney injury): Plan: * NAHUN related to hypotension and poor renal perfusion * Kidney function has recovered * Hold IVF and encourage oral hydration * BP is well controlled. Continue to hold Entresto, Spironolactone and Furosemide. Reintroduction as per primary service discretion * No further Nephrology evaluation indicated at this time. Will sign off. Please call if further assistance is needed (2) Chronic kidney disease, stage II (mild): Plan: * Baseline Cr 1.1 w/ EGFR 78 cc/min (3) Acute hyponatremia: Plan: * Improved. Likely related to poor renal perfusion * Patient is neurologically intact * Monitor PRP (4) Chronic systolic heart failure: Plan: * Admission echocardiogram shows recovered LVEF * Entresto held due to recent NAHUN and relative hypotension (5) BPH (benign prostatic hyperplasia): Plan: * Currently no difficulty voiding * Remains on Tamsulosin therapy (6) Pulmonary emboli: Plan: * h/o PE 03/15 - on heparin gtt Admission and Anticipated Discharge Date Admission Date: April 01, 2023 Subjective Mr. Moses was evaluated in his hospital room this morning. He was breathing comfortably on RA and reported that abdominal discomfort has resolved Review of Systems Constitutional: no fever Eyes: no worsening vision Ear, Nose, Mouth, Throat: no problem reported Respiratory: no cough and no dyspnea Cardiovascular: + dyspnea on exertion; no chest pain Gastrointestinal: no abdominal pain, no nausea, no vomiting and no diarrhea/loose stools Genitourinary: no dysuria, no urinary hesitancy or no hematuria Integumentary: no rash Neurologic: no problem reported Physical Exam Constitutional: not in distress Eyes: PERRL, conjunctivae normal, anicteric sclerae ENMT: external ear and nose normal, oropharynx normal Neck: trachea midline, no thyromegaly Respiratory: normal respiratory effort, lungs clear to auscultation Cardiovascular: RRR, no murmur, no edema Gastrointestinal (Abdomen): normal bowel sounds, soft, nontender, no hepatosplenomegaly Musculoskeletal: Extremities: no cyanosis and no clubbing Neurologic: Speech / Cognition: normal speech and normal cognition Results & Data Vital Signs (Past 12 Hours) Vital Signs Temp Pulse Pulse Resp BP BP Pulse Ox 04/03/23 07:38 36.6 C 79 20 125/70 94 04/03/23 04:03 36.6 C 87 18 155/88 H 93 04/02/23 22:58 36.8 C 65 18 124/78 94 04/02/23 22:00 73 O2 Del Method 04/03/23 07:38 Room Air 04/03/23 04:03 Room Air 04/02/23 22:58 Room Air 04/02/23 22:00 Laboratory Results Laboratory Tests 04/03/23 07:11 WBC 4.75 L Hgb 10.1 L Hct 29.2 L Plt Count 205 Sodium 134 L Potassium 4.6 Chloride 103 Carbon Dioxide 28 BUN 24 H D Creatinine 0.95 D Glucose 124 H Transferrin % Sat 46 Ferritin 203.2 PG Care Time/CCT Total # of Minutes Spent Total Time Spent with Patient: Total time spent is greater than 50% in coordination of care (as documented) at patient's floor/unit and/or counseling patient: Coding Level of Care Code 59246 SUB INP/OBS CARE 3/50MIN Diagnoses NAHUN (acute kidney injury) N17.9 Chronic kidney disease, stage II (mild) N18.2 Acute hyponatremia E87.1 Chronic systolic heart failure I50.22 BPH (benign prostatic hyperplasia) N40.0 Pulmonary emboli I26.99
[2023-04-03] MEDS ORDERED: predniSONE 10 MG TABLET PO ONE (09:00)
[2023-04-03] MEDS ORDERED: CHOLECALCIFEROL 5,000 UNITS 125 MCG TAB PO SCH (09:00)
[2023-04-03 09:21] LABS: Partial Thromboplastin Ratio 1.7
[2023-04-03 09:33] LABS: Partial Thromboplastin Time 48.7 Seconds (21.0-31.0)
[2023-04-03] MEDS: HEPARIN SODIUM/DEXTROSE 25,000 UNITS/500 ML BAG IV SCH (12:01)
[2023-04-03] MEDS ORDERED: OPTIRAY 320 500ml IV ONE (13:10)
--- NOTE | 2023-04-03 13:46 | CT Scan Report ---
CT angio chest PE protocol CLINICAL HISTORY: h/o PEs in 2021; dyspnea; eval for recurrent PE TECHNIQUE: Multidetector row helical CT of the chest was performed with angiographic protocol. Estrada l and sagittal reformations were obtained. Coronal and sagittal MIPS were obtained from the axial tatianna a set and were submitted for review. Automated dose lowering techniques and/or adjustment according to patient size were utilized for this exam. CT DOSE: 788.95 mGy.cm Comparison: Comparison is made to CT chest 03/14/2022 FINDINGS: Lungs and pleura: Atelectasis is seen in the right greater than left lung bases. There is a 5 mm nodu le in the right lower lobe (series 4 image 110). A 3 mm nodule is in the right upper lobe (image 118) . Additional small nodules are noted most prominently at the left lung base. Heart and pericardium: Cardiomegaly is seen with biatrial enlargement. Vessels: No evidence of pulmonary embolism. Mediastinum and solitario: Unremarkable. Chest wall and lower neck: Unremarkable. Abdomen: Unremarkable. Bones: Degenerative changes in the thoracic spine. IMPRESSION: 1. No acute abnormality and in particular no evidence of pulmonary embolus. 2. Stable pulmonary nodules as above. 3. Bilateral atelectasis. ACT 112: Negative or not required by law. Electronically signed by: Zack Connolly M.D. 04/03/2023 1:44 PM
[2023-04-03] MEDS: DULoxetine HCL 30 MG CAP PO SCH (19:40)
--- NOTE | 2023-04-03 19:56 | Hospitalist Progress Note ---
Date of Service April 03, 2023 Assessment & Plan (1) Dyspnea: Plan: Recently treated for URI/sinusitis/bronchitis with multiple abx courses throughout February without resolution of his dyspnea. CXR here w/o infiltrates. O2 sats in RA at rest wnl. D-dimer elevated at 1100. h/o PEs in 2021 - etiology?? Took Eliquis at least through spring 2022 - no longer on such. CrCl still not adequate enough to perform a repeat CTA study. Thus, cont hydration, await Cr to improve, and cont empiric heparin infusion until definitive study to r/o PE is complete. If CTA is negative -- etiology for dyspnea?? (2) NAHUN (acute kidney injury): Plan: Creatinine baseline <1.2 Admission Cr 5.25. Cr improved nicely with IV fluids and supportive care. U/a bland. CT a/p without signs of obstruction. In light of recent illness as outpatient suspect pre-renal etiology for NAHUN in the setting of multiple potentially nephrotic agents including ARB, etc. Appreciate nephro assistance. Cont IVF. Repeat BMP. (3) Generalized weakness: Plan: Present for several weeks. Was treated for URI/sinusitis/bronchitis during this time period without improvement in weakness, etc. Exact cause of weakness? Worsening renal function? Hyponatremia? hypotension? addisonian crisis in midst of significant physical illness last few weeks and not having stress dose steroids? combination of factors? suspect combo Recheck all labs in am. Add a CRP level. provide stress dose steroids - give 40mg po x 1 of prednisone today, then slow taper next few days. (4) Cardiomyopathy, idiopathic: Plan: history of chronic systolic heart failure Pre-2019 echos with EF 35-40% Echos since that time with preserved EF 55-60% Follows with cardiology and had been taking Entresto 22500 twice daily, spironolactone 25 mg, Lasix 20 daily, labetalol. previous systolic CHF was a Non-Ischemic Cardiomyopathy as he had Normal Coronary Arteries on Cardiac Catheterization 2004. LBBB is chronic per records. holding entresto, aldactone, lasix due to NAHUN/hypotension/hyponatremia/etc. (5) Elevated hemidiaphragm: Plan: as noted chronic (6) H/O cervical spine surgery: Plan: History of chronic cervical and lumbar pain, hx cervical decompression Chronically on MS Contin 30 every 8+ oxycodone 20 mg 4 times daily. Patient was recently switched to MS Contin/oxycodone IR from morphine SR/IR, 01/2023, initially with improved pain control but pt feels he has had some sedation with this since. Oxycodone IR and morphine XR continued Continue Duloxetine 30 mg nightly, gabapentin 300 mg 3 times daily +100 mg at bedtime --> renally adjusted to 100 mg 3 times daily due to NAHUN Adjust/titrate as needed once creatinine improves (7) Hypertension: Plan: all anti-hypertensives held due to hypotension cont flomax cautiously (8) BPH (benign prostatic hyperplasia): Plan: Continue Flomax. no signs of obstruction on CT a/p at admission. (9) Anemia: Plan: Has been anemic since prior to 2019. Has been steadily worsening since then. Last EGD 2019 - 1 gastric polyp (Removed). Last colonoscopy - 2019 - nonbleeding internal hemorrhoids, diverticuli of ascending colon. 5 year surveillance recommended. mother had colon ca per records last set of Fe Studies indicated Fe def - will recheck in am. (10) Rheumatoid arthritis: Plan: Rheumatoid arthritis On prednisone 4 mg daily chronically "for years" will provide stress dosing as above (11) Anxiety: Plan: Diazepam 5 mg twice daily prn - chronic med for him (12) Hypogonadism: Plan: On testosterone at home hold while here (13) GERD (gastroesophageal reflux disease): Plan: cont PPI last EGD 2019 via [facility] (gastric polyp only) (14) Hyponatremia: Plan: 2nd NAHUN improving cont isotonic fluids BMP am (15) Hyperkalemia: Plan: 2nd NAHUN improving BMP am holding ARB, diuretics, etc for now Plan PT/OT evals - request DVT proph - heparin drip Admission and Anticipated Discharge Date Admission Date: April 01, 2023 Physical Exam Physical Exam: gen - NAD, pleasant mouth - MMM neck - no JVD heart - RRR, s1 s2 lungs - CTA b/l abd - slight tenderness high epigastric region, ND, BS+, no HSM ext - no edema, pulses 2+ b/l skin - mild pallor, no rash psych - a/o x 3 Results & Data Results & Data Vital Signs (Past 12 Hours) Vital Signs Temp Pulse Pulse Resp BP BP Pulse Ox 04/03/23 17:02 70 04/03/23 15:55 36.8 C 67 16 156/80 H 96 04/03/23 11:20 36.4 C L 75 18 132/72 94 04/03/23 10:00 83 O2 Del Method 04/03/23 17:02 04/03/23 15:55 Room Air 04/03/23 11:20 Room Air 04/03/23 10:00 Laboratory Results Laboratory Results - last 24 hr 04/03/23 04/03/23 07:11 08:24 WBC 4.75 L RBC 3.26 L Hgb 10.1 L Hct 29.2 L MCV 89.6 MCH 31.0 MCHC 34.6 RDW Std Deviation 39.9 RDW Coeff of Jaja 12.0 Plt Count 205 MPV 9.5 Immature Gran % (Auto) 0.4 Neut % (Auto) 64.1 Lymph % (Auto) 20.8 [place] % (Auto) 14.1 Eos % (Auto) 0.2 Baso % (Auto) 0.4 Neut # (Auto) 3.04 Lymph # (Auto) 0.99 L [place] # (Auto) 0.67 H Eos # (Auto) 0.01 Baso # (Auto) 0.02 Immature Gran # (Auto) 0.02 APTT 48.7 H* PTT Ratio 1.7 Sodium 134 L Potassium 4.6 Chloride 103 Carbon Dioxide 28 Anion Gap 3 BUN 24 H D Creatinine 0.95 D Est Cr Clr Drug Dosing 77.3 Est GFR ( Amer) 97.7 Est GFR (Non-Af Amer) 84.3 BUN/Creatinine Ratio 25.3 H Glucose 124 H Calcium 8.6 Iron 104 TIBC 228 L Unsaturated IBC 124 L Transferrin % Sat 46 Ferritin 203.2 C-Reactive Protein 0.67 H Folate > 22.30 PG Care Time/CCT Total # of Minutes Spent Total Time Spent with Patient: Total time spent is greater than 50% in coordination of care (as documented) at patient's floor/unit and/or counseling patient: Coding Diagnoses Dyspnea R06.00 NAHUN (acute kidney injury) N17.9 Generalized weakness R53.1 Cardiomyopathy, idiopathic I42.8 Elevated hemidiaphragm J98.6 H/O cervical spine surgery Z98.890 Hypertension I10 BPH (benign prostatic hyperplasia) N40.0 Anemia D64.9 Rheumatoid arthritis, involving unspecified site, unspecified rheumatoid factor presence M06.9 Rheumatoid arthritis location: unspecified site Rheumatoid factor presence: unspecified presence Anxiety F41.9 Hypogonadism GERD (gastroesophageal reflux disease) K21.9 Hyponatremia E87.1 Hyperkalemia E87.5 (10) Rheumatoid arthritis Rheumatoid arthritis location: unspecified site Rheumatoid factor presence: unspecified presence Qualified Code(s): M06.9 - Rheumatoid arthritis, unspecified
[2023-04-03] MEDS: FEXOFENADINE HCL 180 MG TAB PO SCH (20:20)
[2023-04-03] MEDS: SUCRALFATE 1 GM/10 ML UDC PO SCH (20:21)
[2023-04-04] MEDS: ONDANSETRON INJ 2 MG/ML 2 ML VIAL IV PRN (02:15)
[2023-04-04] MEDS: MoRPHine SULFATE CR 15 MG TABCR PO SCH (05:21)
[2023-04-04] MEDS ORDERED: PROCHLORPERAZINE 5 MG in SYRINGE 4 ML IV ONE (05:45)
[2023-04-04 07:35] LABS: Basophils # (auto) 0.02 K/uL (0.00-0.20); Basophils % (auto) 0.3 %; Eosinophils # (auto) 0.07 K/uL (0.00-0.50); Eosinophils % (auto) 1.2 %; Hematocrit (blood only) 27.6 % (42.0-52.0); Hemoglobin 9.9 g/dl (14.0-18.0); Immature Granulocytes # (auto) 0.02 K/uL (0.01-0.20); Immature Granulocytes % (auto) 0.3 %; Lymphocytes # (auto) 1.44 K/uL (1.20-3.40); Lymphocytes % (auto) 23.8 %; Mean Corpuscular Hemoglobin 31.6 pg (25.0-34.0); Mean Corpuscular Hgb Conc 35.9 g/dL (32.0-36.0); Mean Corpuscular Volume 88.2 fL (80.0-100.0); Mean Platelet Volume 9.8 fL (9.4-12.4); Monocytes # (auto) 0.74 K/uL (0.11-0.59); Monocytes % (auto) 12.2 %; Neutrophils # (auto) 3.77 K/uL (1.40-6.50); Neutrophils % (auto) 62.2 %; Platelet Count 198 K/uL (130-400); RDW Standard Deviation 38.9 fL (36.4-46.3); Red Blood Count 3.13 M/uL (4.70-6.10); White Blood Count 6.06 K/ul (4.8-10.8)
[2023-04-04 07:48] LABS: BUN Creatinine Ratio 15.7 (10-20); Calcium 8.8 mg/dl (8.6-10.3); Creatinine Clr Calc Pharmacy 71.9 ml/min; Est GFR (African American) 89.6 ml/min; Est GFR (Non-African American) 77.3 ml/min; Potassium 4.4 mmol/L (3.5-5.1)
[2023-04-04] MEDS: TAMSULOSIN HCL 0.4 MG CAP PO SCH (08:20)
[2023-04-04] MEDS: SUCRALFATE 1 GM/10 ML UDC PO SCH ×3 (08:20→15:59)
[2023-04-04] MEDS: MEMANTINE HCL 10 MG TAB PO SCH (08:20)
[2023-04-04] MEDS: PANTOprazole 40 MG TAB PO SCH (08:20)
[2023-04-04] MEDS: GABAPENTIN 100 MG CAP PO SCH ×2 (08:20→13:50)
[2023-04-04] MEDS: FEXOFENADINE HCL 180 MG TAB PO SCH (08:22)
[2023-04-04] MEDS ORDERED: predniSONE 20 MG TAB PO STA (09:22)
[2023-04-04] MEDS ORDERED: MoRPHine SULFATE CR 15 MG TABCR PO ONE (09:23)
[2023-04-04] MEDS ORDERED: METOPROLOL TARTRATE 25 MG TAB PO STA (12:56)
[2023-04-04] MEDS ORDERED: MoRPHine SULFATE CR 15 MG TABCR PO SCH (14:00)
--- NOTE | 2023-04-04 17:55 | Discharge Summary ---
Date of Service April 04, 2023 Admission HPI Per Admitting Provider Aditya is a 62-year-old male with a history of BPH who presents with intermittent epigastric and chest pain, chest tightness, and progressive severe weakness. Endorses increased wheezing. He is found to be in acute renal failure, acutely elevated 4 weeks prior to over 5 on admission Chest tightness, constant maybe a little worse with exertion. Notesthe pain is actually in his low ribs bilaterally, nothing in the sterum/going into the shoulder. Doesn't remember his PEs very well, not sure if this feels similar No fevers, chills, or sweats. +productive cough, clear to light yellow phlegm. Ribs hurt when he coughs and breathes in deep. No leg swelling, no calf pain. No long trips. No extermity injuries. +Dyspnea and wheezing. Cannot lay flat due to his back surgery and sleeps in a recliner due to this, does not know if he has orthopnea or not. +hx of chronic cerical and lumbar pain, no change "Peeing fine" No burning, strains a little sometimes. Denies dribbling. Feels he is usually able to empty his bladder all the way, but sometimes not. No urinary incontinence. No change in color, remains light. No black or bloody bowel movements. No lightheadedness/dizziness. Mailed in a card ~3 years ago. Was normal. Has not had a colonoscopy in ~5 years with [facility], had one polyp but otherwise normal at the time per pt. His mother did have colon cancer at ~age 50s/ Stopped blood thinner 6 months ago, was on for ~9 months total. Was on eliquis, tolerated this well without bleeding per pt 1 medication change in the last 2 months. has been on morphine 30mg tablets slow release every 8 hours + morphine IR q6h PRN. Was not getting good pain release from this, so switched to oxycontin q6h instead but doesn't seem to be working as well. He feels more sleeping Medical History: Reviewed Medications: Reviewed Surgical History: Reviewed Family history: Reviewed Allergies: Reviewed Social History: No tobacco. No etoh use; quit 10 years ago. No medical or recreational marijuana. Code Status: Full Code Discharge Exam gen - NAD, pleasant mouth - MMM neck - no JVD heart - RRR, s1 s2 lungs - CTA b/l abd - slight tenderness high epigastric region, ND, BS+, no HSM ext - no edema, pulses 2+ b/l skin - mild pallor, no rash psych - a/o x 3 Discharge Data Allergies Allergy/AdvReac Type Severity Reaction Status Date / Time No Known Drug Allergies Allergy Verified 03/24/23 13:47 Consultations 04/01/23 09:32 ED Decision to Admit Stat 04/02/23 08:33 Consult Nephrology Routine Ordered Studies 04/01/23 08:26 CT Abd and Pelvis [CT abd pelvis wo con] Stat 04/03/23 11:40 CT angio chest PE protocol Routine Hospital Course (1) Dyspnea: Recently treated for URI/sinusitis/bronchitis with multiple abx courses throughout February without resolution of his dyspnea. CXR here w/o infiltrates. O2 sats in RA at rest wnl. D-dimer elevated at 1100. h/o PEs in 2021 - etiology?? Took Eliquis at least through spring 2022 - no longer on such. CrCl still not adequate enough to perform a repeat CTA study. Thus, cont hydration, await Cr to improve, and cont empiric heparin infusion unt il definitive study to r/o PE is complete. If CTA is negative -- etiology for dyspnea?? (2) NAHUN (acute kidney injury): Creatinine baseline <1.2 Admission Cr 5.25. Cr improved nicely with IV fluids and supportive care. U/a bland. CT a/p without signs of obstruction. In light of recent illness as outpatient suspect pre-renal etiology for NAHUN in the setting of multiple potentially nephrotic agents including ARB, etc. Appreciate nephro assistance. Cont IVF. Repeat BMP. (3) Generalized weakness: Present for several weeks. Was treated for URI/sinusitis/bronchitis during this time period without improvement in weakness, etc. Exact cause of weakness? Worsening renal function? Hyponatremia? hypotension? addisonian crisis in midst of significant physical illness last few weeks and not having stress dose steroids? combination of factors? suspect combo Recheck all labs in am. Add a CRP level. provide stress dose steroids - give 40mg po x 1 of prednisone today, then slow taper next few days. (4) Cardiomyopathy, idiopathic: history of chronic systolic heart failure Pre-2019 echos with EF 35-40% Echos since that time with preserved EF 55-60% Follows with cardiology and had been taking Entresto 17833 twice daily, spironolactone 25 mg, Lasix 20 daily, labetalol. previous systolic CHF was a Non-Ischemic Cardiomyopathy as he had Normal Coronary Arteries on Cardiac Catheterization 2004. LBBB is chronic per records. holding entresto, aldactone, lasix due to NAHUN/hypotension/hyponatremia/etc. (5) Elevated hemidiaphragm: as noted chronic (6) H/O cervical spine surgery: History of chronic cervical and lumbar pain, hx cervical decompression Chronically on MS Contin 30 every 8+ oxycodone 20 mg 4 times daily. Patient was recently switched to MS Contin/oxycodone IR from morphine SR/IR, 01/2023, initially with improved pain control but pt feels he has had some sedation with this since. Oxycodone IR and morphine XR continued Continue Duloxetine 30 mg nightly, gabapentin 300 mg 3 times daily +100 mg at bedtime --> renally adjusted to 100 mg 3 times daily due to NAHUN Adjust/titrate as needed once creatinine improves (7) Hypertension: all anti-hypertensives held due to hypotension cont flomax cautiously (8) BPH (benign prostatic hyperplasia): Continue Flomax. no signs of obstruction on CT a/p at admission. (9) Anemia: Has been anemic since prior to 2019. Has been steadily worsening since then. Last EGD 2019 - 1 gastric polyp (Removed). Last colonoscopy - 2019 - nonbleeding internal hemorrhoids, diverticuli of ascending colon. 5 year surveillance recommended. mother had colon ca per records last set of Fe Studies indicated Fe def - will recheck in am. (10) Rheumatoid arthritis: Rheumatoid arthritis On prednisone 4 mg daily chronically "for years" will provide stress dosing as above (11) Anxiety: Diazepam 5 mg twice daily prn - chronic med for him (12) Hypogonadism: On testosterone at home hold while here (13) GERD (gastroesophageal reflux disease): cont PPI last EGD 2019 via [facility] (gastric polyp only) (14) Hyponatremia: 2nd NAHUN improving cont isotonic fluids BMP am (15) Hyperkalemia: 2nd NAHUN improving BMP am holding ARB, diuretics, etc for now Plan PT/OT evals - request DVT proph - heparin drip Discharge Plan Discharge Items Patient Disposition: Home - Self-Care Reason For Visit: Acute renal failure Discharge Diagnosis: 1. acute renal failure - resolved, creatinine (kidney function level) back to normal 2. recent sinus infection / bronchitis (suspected) - resolved 3. history of congestive heart failure 4. prednisone-dependent rheumatoid arthritis 5. hyponatremia (low sodium) - nearly resolved 6. stomach pain - due to gastritis? - improved Activity: As commented below Non-emergency contact: Primary Care Provider, Specialist and Transportation Engineering Technician Call non-emergency contact if: you have any medication questions, your symptoms worsen and your pain is not controlled Follow-up/Referrals: Roc Soria PA-C [Physician Animal Husbandman] - (see within 1 week for your congestive heart failure ) Stephane Torres MD [Physician] - 04/08/23 (keep previously scheduled visit with endocrinology for low testosterone problem ) Giuseppe Romero MD [Primary Care Provider] - (see Dr Romero within 5 days ) Diet: Heart Healthy Fluids: 1800ml (7 cups) Addtl Attending Provider Instructions: Mr Moses, You were hospitalized due to shortness of breath, weakness, fatigue, dehydration, and abdominal discomfort. At time of admission you were in acute renal failure. This means that your kidney function level - also known as "creatinine" - had risen significantly. A combination of dehydration, low blood pressure, and other factors led to the acute renal failure. Fortunately the kidneys improved and your kidney function is back to normal. You improved with IV fluids and extra prednisone. We did not find any infections. We did not find blood clots or fluid build-up in your lungs. Your CT scan of the abdomen did not show a specific reason for your abdominal pain. The CT scan of your lungs showed a few nodules but these have been seen in the past and are likely benign. For your stomach pain we increased your acid reducers and this helped your pain. I am suspicious you may have had something called "gastritis" which is when the stomach lining is inflamed/irritated. Acid reducers heal gastritis. I would recommend that you get a referral from Dr Romero to see gastroenterology; they may want to perform upper endoscopy to look at your esophagus & stomach. Finally, you complained of sinus troubles for several weeks. Dr Romero had given you several courses of antibiotics in February for sinus infection and possibly bronchitis. Your sinus symptoms improved with martell (fexofenadine) and flonase (fluticasone) nasal spray. These are both [id number]. Recommendations - 1. Prednisone - please increase your prednisone for a few days. To do this I have give you a new prescription for a short course of prednisone "taper." Start this on 04/05/23. When the taper is complete please resume your usual prednisone dose of 4mg once daily. 2. For sinuses - * kbas-ndd-ahthqzy fexofenadine 180mg once daily * xlzo-kcm-llblplz fluticasone nasal spray - 2 squirts each nostril once daily 3. Please STOP your labetalol. In its place START metoprolol succinate 25mg once daily. This is for your heart. Start this tomorrow on 04/05/23. 4. We are LOWERING your Entresto dose as your blood pressures have been on the low end of normal while here. STOP your previous Entresto dose. START the new Entresto 24-26mg twice daily on 04/05/23. Again note that the dosage is lower. 5. HOLD your spironolactone for now. Only resume if cardiology or Dr Romero ask you to take it again. 6. Resume your furosemide water pill on 04/06/23. 7. We have changed your omeprazole acid counterperson to pantoprazole. Take ortiz toprazole 40mg twice daily. Also, for 5 days only, take sucralfate (carafate) 1 gram three times daily before meals. These changes are to help your stomach feel better. Follow-up - see separate section Return to [facility] if * you have fevers over 100 degrees * you have worsening shortness of breath * you have chest pain * you have worsening abdominal pains * any other concerns Addtl Group Art Supervisor Provider Instructions: Call 911 and go to the Emergency Room if: * You have tightness or pain in your chest that does not go away with rest or Nitroglycerin * You are very short of breath even with rest Call your doctor if any of the following symptoms or problems start or get worse: * Shortness of breath or difficulty breathing * Wake up at night short of breath * Chest pain * Cough * Swelling of your hands, fee, or legs * More fatigued or tired with your normal activity * Palpitations - sudden fast heart beats WEIGHT * Weigh yourself every morning after using the bathroom. * Use the same scale. * Wear the same amount of clothing. * Write your weight down on your chart. * Call your doctor if you gain more than 2-3 pounds in 1-2 days. MEDICATIONS * Use this discharge instruction sheet for instructions. * Take your medications at the time your doctor ordered. * Do not skip a dose of your medicines. * If you miss a dose of medicine, take as soon as possible, but DO NOT DOUBLE A DOSE. * Read your medicine information when you get home. * Know all of the side effects of your medicine. * Call your doctor's office if you have any side effects. * Be sure all of your doctors know what medicine and herbs you take (including cold, flu, and herbal medicine). * Pain Medicine: If you do not get relief from your pain, please call your doctor for help. Take the following with you to your follow-up doctor appointments: * Weight Chart * Medication List * List of questions Do not drink excessive alcohol, beer or wine. Pending Studies at Discharge: No Stand-Alone Forms: My [facility] Wideo, Smoking Cessation Medications and DC Order Prescriptions: New fexofenadine [Allergy Relief (fexofenadine)] 180 mg Tablet 180 mg PO QAM Qty: 30 0RF Rx Instructions: purchase wias-nrm-oyeklbf pantoprazole 40 mg Tablet,Delayed Release (Dr/Ec) 40 mg PO BID Qty: 60 1RF fluticasone propionate 50 mcg/actuation [place],Suspension 2 spray ANTONY DAILY Qty: 1 0RF Rx Instructions: purchase bonc-mqe-scnuonm sucralfate [Carafate] 1 gram tablet 1 g PO AC 5 Days Qty: 15 0RF prednisone 5 mg tablet 5 mg PO DIRECTED Qty: 15 0RF Rx Instructions: start 04/05/23, take with food. 4 tabs PO day 1; 3 tabs PO days 2/3; 2 tabs PO days 4/5; 1 tab PO day 6. Then resume your usual 4mg of prednisone daily as previous. metoprolol succinate 25 mg tablet extended release 24 hr 25 mg PO DAILY Qty: 30 1RF Rx Instructions: for your heart. Start 04/05/23. Continued diazepam 5 mg tablet 5 mg PO BID PRN (Reason: anxiety) Qty: 60 5RF Rx Instructions: last filled back in May gabapentin 300 mg capsule 300 mg PO TID Qty: 90 3RF Rx Instructions: TAKES IN THE AFTERNOON, DINNER TIME AND AT BEDTIME prednisone 1 mg tablet 4 mg PO DAILY Qty: 120 3RF amoxicillin 500 mg tablet 2,000 mg PO DIRECTED PRN (Reason: 1 HOUR PRIOR TO DENTAL WORK.) Qty: 4 3RF cholecalciferol (vitamin D3) [Vitamin D3] 125 mcg (5,000 unit) tablet 125 mcg PO 2XWK Qty: 30 3RF Rx Instructions: TAKES TUES & FRI. memantine [Namenda] 10 mg tablet 10 mg PO BID Qty: 180 3RF morphine [MS Contin] 30 mg tablet extended release 30 mg PO Q8H Qty: 90 0RF oxycodone 20 mg tablet 20 mg PO QID PRN (Reason: pain) Qty: 120 0RF testosterone 50 mg/5 gram (1 %) gel 1 packet transdermal QAM Qty: 300 5RF albuterol sulfate 90 mcg/actuation HFA aerosol inhaler 2 puff inhalation Q6H PRN (Reason: shortness of breath or wheezing) Qty: 6.7 3RF mometasone 0.1 % cream 1 applic topical DAILY Qty: 45 0RF Rx Instructions: never picked up ondansetron 4 mg tablet,disintegrating 4 mg PO Q8H PRN (Reason: nausea and vomiting) 4 Days Qty: 20 2RF nitroglycerin 0.4 mg tablet, sublingual 0.4 mg sublingual Q5M PRN (Reason: chest pain) Qty: 25 3RF Rx Instructions: no record do not exceed 3 doses per episode diclofenac sodium [Arthritis Pain (diclofenac)] 1 % gel 2 g topical QID PRN (Reason: Pain) Rx Instructions: apply to single elbow, wrist or hand; for hand includes palm/fingers/back of hand tamsulosin [Flomax] 0.4 mg capsule 0.8 mg PO DAILY Qty: 180 3RF multivitamin Tablet 1 tab PO QAM duloxetine [Cymbalta] 30 mg capsule,delayed release(DR/EC) 30 mg PO HS Rx Instructions: no record ashwagandha root extract 300 mg Capsule 300 mg PO HS sacubitril-valsartan 24-26 mg tablet 1 tab PO BID Qty: 60 1RF Held spironolactone [Aldactone] 25 mg tablet 25 mg PO QAM Qty: 180 2RF Hold Instructions: HOLD unless cardiology or Dr Romero recommend restarting furosemide 20 mg tablet 20 mg PO DAILY Hold Instructions: Resume on 04/06/23. Discontinued labetalol 100 mg tablet 100 mg PO BID Qty: 180 3RF gabapentin 100 mg capsule 100 mg PO QAM Qty: 90 3RF amoxicillin-pot clavulanate 875-125 mg tablet 1 tab PO BID Qty: 20 1RF doxycycline hyclate 100 mg tablet 100 mg PO BID Qty: 20 3RF omeprazole 20 mg capsule,delayed release(DR/EC) 20 mg PO BID Qty: 180 3RF ferrous sulfate 325 mg (65 mg iron) Tablet 325 mg PO QAM Rx Instructions: no record Discharge Orders: Discharge Order (Routine); Ordered 04/04/23 Ordered By: Sy Flores Admission Data Admit Date/Time: 04/01/23 11:48 Attending Provider: Sy Flores Admit Provider: Ike Doshi Primary Care Provider: Giuseppe Romero Other Providers: Nahun Rogers; Giuseppe Fox Coding Diagnoses Dyspnea R06.00 NAHUN (acute kidney injury) N17.9 Generalized weakness R53.1 Cardiomyopathy, idiopathic I42.8 Elevated hemidiaphragm J98.6 H/O cervical spine surgery Z98.890 Hypertension I10 BPH (benign prostatic hyperplasia) N40.0 Anemia D64.9 Rheumatoid arthritis, involving unspecified site, unspecified rheumatoid factor presence M06.9 Rheumatoid arthritis location: unspecified site Rheumatoid factor presence: unspecified presence Anxiety F41.9 Hypogonadism GERD (gastroesophageal reflux disease) K21.9 Hyponatremia E87.1 Hyperkalemia E87.5
[2023-04-04] MEDS ORDERED: FLUTICASONE PROPIONATE NA SPR 16 GM BTL NAE SCH (20:00)
== END 2023-04-04 18:34 | disposition home or self-care (01) | DRG 683 ==
LOC: ED 07:13 → EDINP 11:48 → SUATTDRO 11:48 → INTOOBSV 11:48 → 4W 14:17

== ENCOUNTER 2025-03-07 16:04 | Inpatient (IN) ==
[2025-03-07 16:45] LABS: Appearance Urine Clear (Clear); Glucose Urine UA Negative (Negative)
[2025-03-07 16:47] LABS: Hematocrit (blood only) 44.5 % (42.0-52.0); Hemoglobin 15.4 g/dl (14.0-18.0); Immature Granulocytes # (auto) 0.03 K/uL (0.01-0.20); Immature Granulocytes % (auto) 0.4 %; Mean Corpuscular Hemoglobin 31.1 pg (25.0-34.0); Mean Corpuscular Volume 89.9 fL (80.0-100.0); Platelet Count 301 K/uL (130-400); RDW Standard Deviation 43.9 fL (36.4-46.3); Red Blood Count 4.95 M/uL (4.70-6.10); White Blood Count 8.08 K/ul (4.8-10.8)
[2025-03-07 17:04] LABS: Alanine Aminotransferase 13.0 U/L (7-52); Albumin Globulin Ratio 1.5 (0.9-2); Albumin Level 4.4 gm/dl (3.4-5.0); Alkaline Phosphatase 90.0 U/L (34-104); Anion Gap 7.0 (3-11); Bilirubin,Total 0.5 mg/dl (0.2-1.0); Blood Urea Nitrogen 10.0 mg/dl (6-23); Calcium 9.4 mg/dl (8.6-10.3); Carbon Dioxide 31.0 mmol/L (21-32); Chloride 102.0 mmol/L (98-107); Creatinine Clr Calc Pharmacy 79.0 ml/min; Globulin 3.0 gm/dl (2.5-4.0); Glucose 100.0 mg/dl (70-99(Fasting)); Lipase 28.0 U/L (11-82); Potassium 3.8 mmol/L (3.5-5.1); Sodium 140.0 mmol/L (136-145); Total Protein 7.4 gm/dl (6.0-8.3)
--- NOTE | 2025-03-07 17:26 | Emergency Department Note ---
ED Provider Note History of Present Illness Chief Complaint: Abdominal Pain Stated Complaint: ABD PAIN SINCE THURS Time Seen by Provider: 03/07/25 16:59 64-year-old male who presents emergency department with his (who also provides history) with complaint of ongoing upper abdominal sharp pain. The patient reports that he now can no longer eat or drink because of severe discomfort. The patient reports that the pain does occasionally radiate into the back. He does have a history of reflux, and is on omeprazole. He reports that this feels different than reflux. Patient reports that he occasion will get shortness of breath with the discomfort, but denies any overall weakness or chest pain. Patient denies any change in his urine. The patient does report a history of rib fractures a few months ago that do appear to be healing with occasional pain. The patient also has a history of back surgery, and reports that this feels different than his usual chronic back discomfort. Patient has not noticed any black/tarry stools or vomiting. The patient currently rates his discomfort a 9 out of 10. Home Medications Medication Instructions Recorded Confirmed Type multivitamin 1 tab PO QAM 01/19/20 03/07/25 History nitroglycerin 0.4 mg sublingual 0.4 mg sublingual Q5M PRN chest 01/01/22 03/07/25 Rx tablet pain #25 tabs diclofenac sodium 1 % topical gel 2 g topical QID PRN Pain #100 grams 10/20/23 03/07/25 Rx (Arthritis Pain (diclofenac)) tadalafil 5 mg tablet 5 mg PO DAILY #90 tabs 02/10/24 03/07/25 Rx tamsulosin 0.4 mg capsule (Flomax) 0.4 mg PO BID #180 caps 04/20/24 03/07/25 Rx cholecalciferol (vitamin D3) 125 125 mcg PO 2XWK #30 tabs 05/09/24 03/07/25 Rx mcg (5,000 unit) tablet (Vitamin D3) metoprolol succinate 25 mg 25 mg PO QAM #90 tabs 05/12/24 03/07/25 Rx tablet,extended release 24 hr spironolactone 25 mg tablet 25 mg PO QAM #180 tabs 06/22/24 03/07/25 Rx (Aldactone) finasteride 5 mg tablet 5 mg PO QPM #90 tabs 07/11/24 03/07/25 Rx valsartan 80 mg tablet 80 mg PO DAILY #90 tabs 07/18/24 03/07/25 Rx testosterone cypionate 100 mg/mL 50 mg (0.5 mL) subcut Q7D #10 mL 11/04/24 03/07/25 Rx intramuscular oil syringe with needle 3 mL 25 gauge #12 ea 11/14/24 03/01/25 Rx x 1" cetirizine 10 mg tablet 10 mg PO HS #30 tabs 11/16/24 03/07/25 Rx needle (disp) 18 G 18 gauge x 1" #100 ea 12/08/24 03/01/25 Rx (BD Regular [place]) omeprazole 20 mg capsule,delayed 20 mg PO BID #180 caps 01/02/25 03/07/25 Rx release morphine 30 mg tablet,extended 30 mg PO Q8H PRN Pain #90 tabs 02/14/25 03/07/25 Rx release (MS Contin) oxycodone 20 mg tablet 20 mg PO Q4H PRN pain #180 tabs 02/14/25 03/07/25 Rx amoxicillin 875 mg-potassium 1 tab PO BID 7 days #14 tabs 03/02/25 03/07/25 Rx clavulanate 125 mg tablet amoxicillin 500 mg capsule 2,000 mg PO DIRECTED PRN 1 HR 03/07/25 03/07/25 History PRIOR TO DENTAL PROCEDURES memantine 10 mg tablet 10 mg PO BID #180 tabs 03/07/25 03/07/25 Rx prednisone 1 mg tablet 3 mg (3 x 1 mg) PO DAILY #90 tabs 03/07/25 03/07/25 Rx Allergies Allergy/AdvReac Type Severity Reaction Status Date / Time No Known Allergies Allergy Verified 03/07/25 18:40 Past Med/Surg History Problem List (Updated 03/07/25 @ 22:42 by Blaise Burkett) History of back surgery (Acute) Intractable epigastric abdominal pain (Acute) Rib fracture Hematoma Constipation Hypogonadism in male Chest pain Pseudoarthrosis of lumbar spine Adrenal insufficiency Iatrogenic, prednisone for decades Left foot drop Kyphosis deformity of spine Scoliosis Degeneration of thoracolumbar intervertebral disc Thoracolumbar kyphosis Flatback syndrome of lumbar region 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 UTI (urinary tract infection) Primary hypogonadism in male Spinal stenosis of lumbar region at multiple levels Rheumatoid arthritis GERD (gastroesophageal reflux disease) Well controlled and stable Anemia BPH (benign prostatic hyperplasia) Allergic rhinitis Hypertension Anxiety Sinusitis Rotator cuff arthropathy of left shoulder Left shoulder pain Central hypogonadism Hyponatremia Pulmonary nodules Chronic kidney disease, stage II (mild) Painful total knee replacement Diaphragmatic paralysis Long-term current use of steroids Osteoporosis LBBB (left bundle branch block) Chronic back pain hx pain pump -- worked for 7 days and then became infected and was removed. unable to reinsert. done in [place] "a long time ago" Osteoarthritis of hips, bilateral Restrictive airway disease Per records > Pt denies Per 06/2020 PFTS: Moderate restrictive physiology with bronchodilator response and decreased DLCO Medical History (HFpEF) heart failure with preserved ejection fraction Chronic sinusitis History of kidney stones History of diverticulitis Lyme disease 10/2023, treated with abx x 2 weeks, finished treatment, no issues History of pulmonary embolism Actinic keratosis Acquired deviated nasal septum Surgical History Status post left hip replacement Status post right hip replacement (~09/2021) History of laparoscopic appendectomy (06/24/21) Laparoscopic Appendectomy, Enterolysis, Repair of Umbilical Hernia - Juan Jones, 06/24/2021 History of total knee replacement 11/11/2019: SAB + PNB. No issues per anesthesia postop progress note. H/O cervical spine surgery 2 or 3 levels, limited ROM History of lumbar fusion X 2 WITH HARDWARE L2-L4 decompression-fusion 08/06/2020: Grade 1 view, Casey#2, ETT#8.0 atraumatic x 1. No issues per anesthesia postop progress note. History of lithotripsy History of colonoscopy Family History Mother Family hx of colon cancer Father , age 65 Myocardial infarction Other No family history of adverse response to anesthesia No family history of bleeding disorder Denies family history of Ovarian cancer Prostate cancer Breast cancer Lung cancer Social History Smoking Status: Never smoker Second Hand Exposure: No; Do You Dip or Chew Tobacco: No; Hx Alcohol Use: No Hx Substance Use: No Preferred Language: Greek Communication Ability: Effective Visual Impairment: Partially Limited Appointment Specialist Required: No Beliefs That Will Affect Care: None marital status: Current Living Situation: Spouse current occupational status: retired and disabled current occupation: [employer] How many Children do You have: 1 Feels Safe at Home: Yes Childhood Exposure to Second-Hand Smoke: No caffeine: Yes Dental Care, Regularly: Yes Physical Activity Frequency: Does not Exercise Seatbelt Use: sometimes Sunscreen Use: No Assistive Devices: Cane Physical Exam Vital Signs Vital Signs - 24 hr 03/07/25 16:13 03/07/25 16:53 03/07/25 16:57 Temperature 36.7 C Temperature Source Oral Pulse Rate 104 H 80 Pulse Rate [Apical] Pulse Rate from SpO2 Sensor 79 Pulse Rhythm [Apical] Respiratory Rate 18 15 Respiratory Effort / Characteristics Non-Labored Spontaneous Respiratory Depth Normal Respiratory Pattern Regular Blood Pressure 149/88 H 171/118 H Blood Pressure [Left Arm] Blood Pressure Mean 108 132 Blood Pressure Mean [Left Arm] Pulse Oximetry 97 96 Oxygen Delivery Method Room Air Room Air Oxygen Flow Rate Sepsis Recent Fever Within 48 Hours No Sepsis New/Unexplained Change in Mental Status N/A Sepsis Action Taken by Nursing No Action Required 03/07/25 17:05 03/07/25 17:21 03/07/25 17:42 Temperature Temperature Source Pulse Rate 67 69 67 Pulse Rate [Apical] Pulse Rate from SpO2 Sensor 70 65 Pulse Rhythm [Apical] Respiratory Rate 18 21 Respiratory Effort / Characteristics Respiratory Depth Respiratory Pattern Blood Pressure Blood Pressure [Left Arm] Blood Pressure Mean Blood Pressure Mean [Left Arm] Pulse Oximetry 98 96 Oxygen Delivery Method Room Air Room Air Oxygen Flow Rate Sepsis Recent Fever Within 48 Hours Sepsis New/Unexplained Change in Mental Status Sepsis Action Taken by Nursing 03/07/25 18:00 03/07/25 19:26 03/07/25 19:28 Temperature Temperature Source Pulse Rate 64 67 Pulse Rate [Apical] 63 Pulse Rate from SpO2 Sensor 62 68 Pulse Rhythm [Apical] Regular Respiratory Rate 15 15 16 Respiratory Effort / Characteristics Non-Labored Spontaneous Respiratory Depth Normal Respiratory Pattern Regular Blood Pressure 147/89 H Blood Pressure [Left Arm] 147/89 H Blood Pressure Mean 103 Blood Pressure Mean [Left Arm] 108 Pulse Oximetry 95 97 96 Oxygen Delivery Method Room Air Room Air Room Air Oxygen Flow Rate Sepsis Recent Fever Within 48 Hours Sepsis New/Unexplained Change in Mental Status Sepsis Action Taken by Nursing 03/07/25 19:30 03/07/25 20:00 03/07/25 20:30 Temperature Temperature Source Pulse Rate 72 69 70 Pulse Rate [Apical] Pulse Rate from SpO2 Sensor 72 66 71 Pulse Rhythm [Apical] Respiratory Rate 17 19 19 Respiratory Effort / Characteristics Respiratory Depth Respiratory Pattern Blood Pressure 157/83 H 134/79 166/91 H Blood Pressure [Left Arm] Blood Pressure Mean 107 87 116 Blood Pressure Mean [Left Arm] Pulse Oximetry 96 96 95 Oxygen Delivery Method Room Air Room Air Room Air Oxygen Flow Rate Sepsis Recent Fever Within 48 Hours Sepsis New/Unexplained Change in Mental Status Sepsis Action Taken by Nursing 03/07/25 20:34 03/07/25 20:50 03/07/25 21:00 Temperature Temperature Source Pulse Rate 66 62 Pulse Rate [Apical] 62 Pulse Rate from SpO2 Sensor 62 Pulse Rhythm [Apical] Regular Respiratory Rate 14 15 Respiratory Effort / Characteristics Non-Labored Spontaneous Respiratory Depth Normal Respiratory Pattern Regular Blood Pressure 154/81 H Blood Pressure [Left Arm] 166/91 H Blood Pressure Mean 105 Blood Pressure Mean [Left Arm] 116 Pulse Oximetry 96 96 Oxygen Delivery Method Room Air Room Air Oxygen Flow Rate Sepsis Recent Fever Within 48 Hours Sepsis New/Unexplained Change in Mental Status Sepsis Action Taken by Nursing 03/07/25 21:31 03/07/25 22:24 Temperature Temperature Source Pulse Rate 63 Pulse Rate [Apical] 66 Pulse Rate from SpO2 Sensor 64 Pulse Rhythm [Apical] Respiratory Rate 15 18 Respiratory Effort / Characteristics Spontaneous Respiratory Depth Respiratory Pattern Blood Pressure 150/98 H Blood Pressure [Left Arm] 155/81 H Blood Pressure Mean 119 Blood Pressure Mean [Left Arm] 105 Pulse Oximetry 97 95 Oxygen Delivery Method Nasal Cannula Room Air Oxygen Flow Rate 3 Sepsis Recent Fever Within 48 Hours Sepsis New/Unexplained Change in Mental Status Sepsis Action Taken by Nursing CONSTITUTIONAL: Healthy and well nourished. Patient appears in moderate discomfort. HEENT: No scleral icterus or conjunctival injection. Mucous membranes are dry. NECK: Full active range of motion without discomfort. LYMPHATICS: No cervical chain adenopathy. RESPIRATORY: Clear to auscultation bilaterally with no wheezing, crackles, rhonchi or stridor. CARDIOVASCULAR: Regular rate and rhythm with no murmurs, rubs or gallops. GASTROINTESTINAL: Bowel sounds present in all quadrants. Patient has generalized abdominal discomfort with more focused tenderness over the epigastric and right upper quadrant region. No rigidity, guarding or rebound. Negative CVA tenderness, McBurney's point tenderness and Rovsing sign. MUSCULOSKELETAL: Full range of motion of all joints without discomfort. INTEGUMENTARY: No rash or other significant dermatologic conditions noted. HEMATOLOGIC: No ecchymosis or petechiae. PSYCHIATRIC: Positive affect. NEUROLOGIC: No focal neurologic deficits noted. Course Course Patient history and physical exam were performed. Nursing notes were reviewed. Vital signs are reviewed, showing a mildly elevated blood pressure, otherwise the patient is not febrile, hypoxic or tachycardic. Also reviewed outside medical records, showing that the patient did have CT with IV contrast of the abdomen pelvis on 03/02/2025, showing a generalized colitis most prominent within the descending colon and sigmoid region. The patient's most recent lab work from 01/16/2025 did not show any concerning findings. IV access was established, and labs were ordered and drawn. The patient was hydrated with a liter of normal saline, and administered IV morphine and Zofran for pain. An ECG shows a normal sinus rhythm with left bundle branch block. The patient was placed on conveyor monitor while in the emergency department. Review of labs from today continues to show no leukocytosis, thrombocytopenia or significant neutrophilic shift. CMP was also normal, including LFTs, total bilirubin and lipase. Urinalysis does not show any hematuria or signs of infection. I did highly recommend CT imaging of the abdomen, especially given that the patient had descending colon and sigmoid diverticulitis on his last CT. The patient and initially agreed to CT imaging, expressing concern that the insurance company threatened to deny his last CT imaging. They were concerned that this would happen again, and declined CT imaging. I did recommend gallbladder ultrasound as well, and the patient was in agreement with this plan. He was administered additional IV morphine for pain control. Abdominal ultrasound was performed, but unfortunately the gallbladder could not be well- seen because of overlying bowel gas. Findings were discussed with the patient and . At this point, the patient requested to be admitted. I explained that he does not have any definitive findings to warrant admission. I did explain to the patient that I would prefer to repeat the CT imaging to make sure that we do not see any acute changes from his previous colitis. At this point, the patient wanted to call his insurance company to see if they would allow CT imaging. Shortly thereafter, the patient and elected to undergo CT imaging, which was performed, showing no acute findings, as well as resolution of his previously visualized colitis on CT imaging. Findings were discussed with the patient and , who are still very frustrated with his ongoing pain, and poor pain control while in the emergency department, especially after 4 doses of IV morphine. I did explain that he is on high doses of morphine at home, and trying to control his pain would be very difficult. The patient and did not feel comfortable going home as he is unable to control his pain with his home medications. At this time, I did offer to reach out to the hospitalist service. The case was further discussed with Dr. Fabian. Please see hospitalist notes for further workup and final disposition. The case was also discussed with Dr. Kwok, ED attending physician, who agrees with workup and hospitalist consultation. Administered Medications Discontinued Medications Famotidine (Pepcid 20mg Iv Push) 20 mg in 5 mls @ 2.5 mls/min IV NOW STA Stop: 03/07/25 17:17 Last Admin: 03/07/25 17:28 Dose: 2.5 mls/min Documented By: CINDY Ioversol (Optiray 320 100ml) 90 ml IV ONCE ONE Stop: 03/07/25 21:52 Last Admin: 03/07/25 21:52 Dose: 90 ml Documented By: REGGIE Morphine Sulfate (Morphine Sulfate 4 Mg/Ml 1 Ml Carp\\Vial) 4 mg IV NOW STA Stop: 03/07/25 17:17 Last Admin: 03/07/25 17:27 Dose: 4 mg Documented By: CINDY Morphine Sulfate (Morphine Sulfate 4 Mg/Ml 1 Ml Carp\\Vial) 4 mg IV NOW STA Stop: 03/07/25 18:35 Last Admin: 03/07/25 18:47 Dose: 4 mg Documented By: CINDY Morphine Sulfate (Morphine Sulfate 4 Mg/Ml 1 Ml Carp\\Vial) 4 mg IV NOW STA Stop: 03/07/25 19:32 Last Admin: 03/07/25 20:30 Dose: 4 mg Documented By: YANICK Morphine Sulfate (Morphine Sulfate 4 Mg/Ml 1 Ml Carp\\Vial) 4 mg IV NOW STA Stop: 03/07/25 22:22 Last Admin: 03/07/25 22:24 Dose: 4 mg Documented By: JORGE Morphine Sulfate (Morphine Sulfate 4 Mg/Ml 1 Ml Carp\\Vial) Confirm Administered Dose 4 mg .ROUTE .STK-MED ONE Stop: 03/07/25 22:24 Last Admin: 03/07/25 22:24 Dose: Not Given Documented By: JORGE Ondansetron HCl (Ondansetron Inj 2 Mg/Ml 2 Ml Vial) 4 mg IV NOW STA Stop: 03/07/25 17:17 Last Admin: 03/07/25 17:27 Dose: 4 mg Documented By: CINDY Medical Decision Making Medical Records Attestation: I reviewed the patient's medical records. Home Medications was personally reviewed by me Laboratory Data Attestation: I reviewed the patient's lab results. 03/07/25 16:23 03/07/25 16:23 Lab Results 03/07/25 Range/Units 16:23 WBC 8.08 (4.8-10.8) K/ul RBC 4.95 (4.70-6.10) M/uL Hgb 15.4 (14.0-18.0) g/dl Hct 44.5 (42.0-52.0) % MCV 89.9 (80.0-100.0) fL MCH 31.1 (25.0-34.0) pg MCHC 34.6 (32.0-36.0) g/dL RDW Std Deviation 43.9 (36.4-46.3) fL RDW Coeff of [place] 13.2 (11.5-14.5) % Plt Count 301 (130-400) K/uL MPV 9.5 (9.4-12.4) fL Immature Gran % (Auto) 0.4 % Neut % (Auto) 69.3 % Lymph % (Auto) 18.6 % [place] % (Auto) 8.5 % Eos % (Auto) 2.6 % Baso % (Auto) 0.6 % Neut # (Auto) 5.60 (1.40-6.50) K/uL Lymph # (Auto) 1.50 (1.20-3.40) K/uL [place] # (Auto) 0.69 H (0.11-0.59) K/uL Eos # (Auto) 0.21 (0.00-0.50) K/uL Baso # (Auto) 0.05 (0.00-0.20) K/uL Immature Gran # (Auto) 0.03 (0.01-0.20) K/uL Sodium 140 (136-145) mmol/L Potassium 3.8 (3.5-5.1) mmol/L Chloride 102 (98-107) mmol/L Carbon Dioxide 31 (21-32) mmol/L Anion Gap 7 (3-11) BUN 10 (6-23) mg/dl Creatinine 0.86 (0.6-1.4) mg/dl Est Cr Clr Drug Dosing 79.0 ml/min eGFR 95.50 BUN/Creatinine Ratio 11.6 (10-20) Glucose 100 H (70-99(Fasting)) mg/dl Calcium 9.4 (8.6-10.3) mg/dl Total Bilirubin 0.5 (0.2-1.0) mg/dl AST 20 (13-39) U/L ALT 13 (7-52) U/L Alkaline Phosphatase 90 (34-104) U/L Total Protein 7.4 (6.0-8.3) gm/dl Albumin 4.4 (3.4-5.0) gm/dl Globulin 3.0 (2.5-4.0) gm/dl Albumin/Globulin Ratio 1.5 (0.9-2) Lipase 28 (11-82) U/L Urine Color Yellow Urine Appearance Clear (Clear) Urine pH 8.0 H (4.5-7.5) Ur Specific [place] 1.010 (1.000-1.030) Urine Protein Negative (Negative) Urine Glucose (UA) Negative (Negative) Urine Ketones Negative (Negative) Urine Blood Negative (Negative) Urine Nitrite Negative (Negative) Urine Bilirubin Negative (Negative) Urine Urobilinogen Negative (Negative) Ur Leukocyte Esterase Negative (Negative) Urine Comment Imaging Data Attestation: I personally reviewed and interpreted this imaging study as follows: My Impression: My interpretation of a portable chest x-ray does not show any evidence for congestive heart failure, pneumonia, pulmonary edema or pneumothorax. My interpretation of limited abdominal ultrasound was not able to see the gallbladder wall secondary to overlying bowel gas. Patient did elect repeat CT imaging of the abdomen and pelvis, showing no evidence for bowel obstruction, diverticulitis or free air. Radiologist's Impression: Abdomen Ultrasound 03/07/25 17:16 EXAM: Abdomen limited CLINICAL HISTORY: Abdominal pain TECHNIQUE: Ultrasound interrogation of the abdomen was performed with grayscale and color Doppler imaging. PRIORS: None FINDINGS: Examination is extremely limited due to shadowing bowel gas. The liver is normal in size and configuration. Normal liver parenchyma demonstrated. No intrahepatic ductal dilatation. No hepatic mass. Possible gallbladder sludge is noted. No cholelithiasis, gallbladder wall thickening or sonographic Velazquez sign. Common bile duct is obstructed by shadowing bowel gas. Right kidney is normal in size and configuration measuring 9.9 cm. No hydronephrosis. Pancreas is obscured due to shadowing bowel gas. IVC and aorta are patent. Aorta is normal in size. IMPRESSION: Extremely limited examination with possible gallbladder sludge and no discrete gallstones. The common bile duct and pancreas were not visualized. ACT 112: Positive. There are findings on this examination that require communication between the performing entity and the patient following Patient Test Result Information Act ([place] ACT 112) guidelines. Electronically signed by Lisa Vaca 03-07-2025 7:57 PM Chest X-Ray 03/07/25 17:28 EXAM: X-ray chest one-view portable CLINICAL HISTORY: Epigastric pain PRIORS: 05/19/2024 TECHNIQUE: AP upright surgical hardware of the FINDINGS: Thoracic spine present appearing in the interval. Right hemidiaphragm is elevated, unchanged. No airspace consolidation, effusion or congestive changes. cardiac silhouette is moderately enlarged. No pneumothorax. Trachea is patent. Osseous structures demonstrate no acute abnormality. No radiopaque foreign body. No subdiaphragmatic gas. IMPRESSION: No plain film evidence of an acute cardiopulmonary process. Enlarged cardiac silhouette, unchanged. Moderate elevation of the right hemidiaphragm, unchanged. Electronically signed by Lisa Vaca 03-07-2025 6:09 PM Abdomen/Pelvis CT 03/07/25 20:36 Exam(s): CT ABDOMEN + PELVIS With Contrast IV Amt: 90 ml optiray 320 EXAM: CT Abdomen and Pelvis With Intravenous Contrast CLINICAL HISTORY: Reason for exam: Abd pain, N/V. TECHNIQUE: Axial computed tomography images of the abdomen and pelvis with intravenous contrast. CTDI is 23.66 mGy and DLP is 1197.51 mGy-cm. Automated exposure control was utilized for the study. A dose lowering technique was utilized adhering to the principles of ALARA. CONTRAST: Patient received 90 ml optiray 320 of IV contrast COMPARISON: 03/02/2025 FINDINGS: Lung bases: Unremarkable. No mass. No consolidation. ABDOMEN: Liver: Unremarkable. No mass. Gallbladder and bile ducts: Unremarkable. No calcified stones. No ductal dilation. Pancreas: Unremarkable. No mass. No ductal dilation. Spleen: Unremarkable. No splenomegaly. Adrenals: Unremarkable. No mass. Kidneys and ureters: Unremarkable. No solid mass. No hydronephrosis. Stomach and bowel: Interval resolution of wall thickening involving the colon. No obstruction. PELVIS: Appendix: No findings to suggest acute appendicitis. Bladder: Unremarkable. No mass. Reproductive: Unremarkable as visualized. ABDOMEN and PELVIS: Intraperitoneal space: Unremarkable. No free air. No significant fluid collection. Bones/joints: Extensive postop changes thoracic and lumbar spine. Bilateral hip arthroplasties unchanged from prior exam. No acute fracture. No dislocation. Soft tissues: Unremarkable. Vasculature: Unremarkable. No abdominal aortic aneurysm. Lymph nodes: Unremarkable. No enlarged lymph nodes. IMPRESSION: No acute findings in the abdomen or pelvis. Interval resolution of descending colonic inflammatory changes. Electronically signed by: Nahun Logan MD 03/07/25 22:20 PM ECG Data Attestation: I personally reviewed and interpreted this ECG as follows: Indication: + abdominal pain and + nausea Rate (beats per minute): 62 Rhythm: + normal sinus ECG Intervals/blocks: + Left bundle branch block, + Normal QT and + Normal NM ECG Holmes: + Normal ECG ST segments: + Normal ST segments Comparison ECG Date: from (01/09/2025) Change: no significant change Prescription Drug Monitoring [place] Drug Monitoring Program reviewed and findings noted below (Patient is on morphine ER 30 mg 3 times daily, and Oxy IR 20 mg every 4 hours as needed, and prescribed by his PCP.) MDM Narrative Cardiac monitoring: An order was placed for continuous cardiac monitoring. The monitor shows a rate of 62 bpm with a normal sinus rhythm. property assessment monitor history was reviewed throughout the evaluation, and no dysrhythmias were noted. See ED Course section for further details of today's visit. The patient presents with complaint of ongoing abdominal pain that has progressively worsened over the past few weeks. The patient did have an outpatient CT scan showing a descending colon and sigmoid colitis. Given his ongoing symptoms, additional lab work was performed today. Lab work is not suggestive of pancreatitis, cholecystitis, hepatitis or significant infection. ECG and chest x-ray were normal, as well as a normal troponin. We did attempt ultrasound of the gallbladder, unfortunately overlying bowel gas did not provide good visualization of the gallbladder. Radiologist question the possibility of gallbladder sludge. Laboratory studies, however, are not suggestive of choledocholithiasis, cholecystitis or hepatitis. The patient was administered 4 rounds of IV morphine without any significant relief of his pain. The patient and were concerned that he is unable to control his pain at home with large doses of morphine ER and Oxy IR, prescribed by his family doctor for history of chronic back pain. At this point, I did discuss the case with our hospitalist service, who did evaluate the patient. Please see their dictation for further treatment and final disposition. The case was also discussed with Dr. Kwok, ED attending physician, who agrees with workup and hospitalist consultation. Attending Attestation: I Hipolito Kwok MD I have reviewed the advanced practitioner's documentation and agree with the plan of care. Imaging and labs without severe abnormality but intractable pain. Will be observed. I accept the responsibility for the associated risk of managing the patient. I performed a substantive portion of the visit including involvement in all aspects of medical decision making. Impression Intractable epigastric abdominal pain, History of back surgery Discharge Plan Visit Data Chief Complaint: Abdominal Pain Stated Complaint: ABD PAIN SINCE ED Provider: Hipolito Kwok ED Midlevel Provider: Blaise Burkett Discharge Problem: Intractable epigastric abdominal pain, History of back surgery Patient Disposition: Admitted As Inpatient Condition: Fair Forms Stand Alone Forms: My [facility] [employer] Prescriptions Prescriptions: No Action diclofenac sodium [Arthritis Pain (diclofenac)] 1 % gel 2 g topical QID PRN (Reason: Pain) Qty: 100 6RF tamsulosin [Flomax] 0.4 mg capsule 0.4 mg PO BID Qty: 180 3RF cholecalciferol (vitamin D3) [Vitamin D3] 125 mcg (5,000 unit) tablet 125 mcg PO 2XWK Qty: 30 3RF Rx Instructions: TAKES TUES & FRI. metoprolol succinate 25 mg tablet extended release 24 hr 25 mg PO QAM Qty: 90 3RF spironolactone [Aldactone] 25 mg tablet 25 mg PO QAM Qty: 180 3RF Hold Instructions: HOLD unless cardiology or Dr Romero recommend restarting finasteride 5 mg tablet 5 mg PO QPM Qty: 90 3RF testosterone cypionate 100 mg/mL oil 50 mg subcut Q7D Qty: 10 3RF (DME) syringe with needle 3 mL 25 gauge x 1" syringe See Rx Instructions .Route Qty: 12 1RF Rx Instructions: Use once a week with Testosterone Injection (DME) needle (disp) 18 G [BD Regular Bevel [place]] 18 gauge x 1" needle See Rx Instructions miscellaneous .MEDSUPPLY Qty: 100 3RF Rx Instructions: use once weekly with testosterone omeprazole 20 mg capsule,delayed release(DR/EC) 20 mg PO BID Qty: 180 3RF morphine [MS Contin] 30 mg tablet extended release 30 mg PO Q8H PRN (Reason: Pain) Qty: 90 0RF oxycodone 20 mg tablet 20 mg PO Q4H PRN (Reason: pain) Qty: 180 0RF amoxicillin-pot clavulanate 875-125 mg tablet 1 tab PO BID 7 Days Qty: 14 0RF Rx Instructions: STARTED 03/02/25 FOR 7 DAYS prednisone 1 mg tablet 3 mg PO DAILY Qty: 90 1RF memantine 10 mg tablet 10 mg PO BID Qty: 180 3RF nitroglycerin 0.4 mg tablet, sublingual 0.4 mg sublingual Q5M PRN (Reason: chest pain) Qty: 25 3RF Rx Instructions: no record do not exceed 3 doses per episode tadalafil 5 mg tablet 5 mg PO DAILY Qty: 90 3RF valsartan 80 mg tablet 80 mg PO DAILY Qty: 90 3RF cetirizine 10 mg tablet 10 mg PO HS Qty: 30 11RF multivitamin Tablet 1 tab PO QAM amoxicillin 500 mg capsule 2,000 mg PO DIRECTED PRN (Reason: 1 HR PRIOR TO DENTAL PROCEDURES) Rx Instructions: take 4 caps 1 hour prior to dental appointment Referrals Referrals: Giuseppe Romero MD [Primary Care Provider] - ED DC CONDITION [place] at Discharge Condition at Discharge: Fair
[2025-03-07] MEDS: MoRPHine SULFATE 4 MG/ML 1 ML CARP\\VIAL IV STA ×4 (17:27→22:24)
[2025-03-07] MEDS: ONDANSETRON INJ 2 MG/ML 2 ML VIAL IV STA (17:27)
[2025-03-07] MEDS: FAMOTIDINE 20MG IV PUSH 20 MG/5 ML SYR IV STA (17:28)
--- NOTE | 2025-03-07 18:18 | XRay Report ---
EXAM: X-ray chest one-view portable CLINICAL HISTORY: Epigastric pain PRIORS: 05/19/2024 TECHNIQUE: AP upright surgical hardware of the FINDINGS: Thoracic spine present appearing in the interval. Right hemidiaphragm is elevated, unchanged. No airspace consolidation, effusion or congestive changes. cardiac silhouette is moderately enlarged. No pneumothorax. Trachea is patent. Osseous structures demonstrate no acute abnormality. No radiopaque foreign body. No subdiaphragmatic gas. IMPRESSION: No plain film evidence of an acute cardiopulmonary process. Enlarged cardiac silhouette, unchanged. Moderate elevation of the right hemidiaphragm, unchanged. Electronically signed by Lisa Vaca 03-07-2025 6:09 PM
--- NOTE | 2025-03-07 19:57 | Ultrasound Report ---
EXAM: Abdomen limited CLINICAL HISTORY: Abdominal pain TECHNIQUE: Ultrasound interrogation of the abdomen was performed with grayscale and color Doppler imaging. PRIORS: None FINDINGS: Examination is extremely limited due to shadowing bowel gas. The liver is normal in size and configuration. Normal liver parenchyma demonstrated. No intrahepatic ductal dilatation. No hepatic mass. Possible gallbladder sludge is noted. No cholelithiasis, gallbladder wall thickening or sonographic Velazquez sign. Common bile duct is obstructed by shadowing bowel gas. Right kidney is normal in size and configuration measuring 9.9 cm. No hydronephrosis. Pancreas is obscured due to shadowing bowel gas. IVC and aorta are patent. Aorta is normal in size. IMPRESSION: Extremely limited examination with possible gallbladder sludge and no discrete gallstones. The common bile duct and pancreas were not visualized. ACT 112: Positive. There are findings on this examination that require communication between the performing entity and the patient following Patient Test Result Information Act ([place] ACT 112) guidelines. Electronically signed by Lisa Vaca 03-07-2025 7:57 PM
[2025-03-07] MEDS: OPTIRAY 320 100ml IV ONE (21:52)
--- NOTE | 2025-03-07 22:21 | CT Scan Report ---
Exam(s): CT ABDOMEN + PELVIS With Contrast IV Amt: 90 ml optiray 320 EXAM: CT Abdomen and Pelvis With Intravenous Contrast CLINICAL HISTORY: Reason for exam: Abd pain, N/V. TECHNIQUE: Axial computed tomography images of the abdomen and pelvis with intravenous contrast. CTDI is 23.66 mGy and DLP is 1197.51 mGy-cm. Automated exposure control was utilized for the study. A dose lowering technique was utilized adhering to the principles of ALARA. CONTRAST: Patient received 90 ml optiray 320 of IV contrast COMPARISON: 03/02/2025 FINDINGS: Lung bases: Unremarkable. No mass. No consolidation. ABDOMEN: Liver: Unremarkable. No mass. Gallbladder and bile ducts: Unremarkable. No calcified stones. No ductal dilation. Pancreas: Unremarkable. No mass. No ductal dilation. Spleen: Unremarkable. No splenomegaly. Adrenals: Unremarkable. No mass. Kidneys and ureters: Unremarkable. No solid mass. No hydronephrosis. Stomach and bowel: Interval resolution of wall thickening involving the colon. No obstruction. PELVIS: Appendix: No findings to suggest acute appendicitis. Bladder: Unremarkable. No mass. Reproductive: Unremarkable as visualized. ABDOMEN and PELVIS: Intraperitoneal space: Unremarkable. No free air. No significant fluid collection. Bones/joints: Extensive postop changes thoracic and lumbar spine. Bilateral hip arthroplasties unchanged from prior exam. No acute fracture. No dislocation. Soft tissues: Unremarkable. Vasculature: Unremarkable. No abdominal aortic aneurysm. Lymph nodes: Unremarkable. No enlarged lymph nodes. IMPRESSION: No acute findings in the abdomen or pelvis. Interval resolution of descending colonic inflammatory changes. Electronically signed by: Nahun Logan MD 03/07/25 22:20 PM
[2025-03-07] MEDS: MoRPHine SULFATE 4 MG/ML 1 ML CARP\\VIAL ONE (22:24)
[2025-03-07] MEDS ORDERED: HYDROmorphone INJ 0.5 MG/0.5 ML SYR IV PRN (23:18)
[2025-03-07] MEDS ORDERED: NALOXONE HCL 0.4 MG/1 ML VIAL/CARP IV PRN (23:23)
--- NOTE | 2025-03-07 23:28 | History & Physical Report ---
Date of Service March 07, 2025 Assessment & Plan (1) Intractable epigastric abdominal pain: (2) History of back surgery: (3) BPH (benign prostatic hyperplasia): Plan The patient is a 64-year-old male with a past medical history including male hypogonadism, alcohol dependence and in full remission, adrenal insufficiency, thoracolumbar kyphoscoliosis, history of urinary tract infection, GERD, BPH, hypertension, CKD stage II, LBBB, restrictive airway disease, and idiopathic cardiomyopathy. The patient presents to the emergency department, accompanied by his , with complaint of persistently worsening epigastric area pain. Initially developed epigastric area pain a few months ago, and has had imaging studies done, most recently on 03/02/2025, where he was diagnosed with colitis, placed on antibiotics which he completed, and has had continually worsening epigastric area pain. He underwent lumbar spine surgery at [facility] in [place] in August, and reports that he has no issues with back pain. His epigastric pain began a month or so after having had the back surgery, but reports that he did have some abdominal bloating while in the hospital there. His reports that the abdominal bloating has persisted since that time. He has had nausea without vomiting. He reports bowel movements are normal and he reports urine function is normal. He has had little oral intake over the past few days due to progressively worsening epigastric area pain. CT scan of abdomen pelvis in the emergency department today shows resolution of the previous colitis, chest x-ray is negative, and ultrasound of the abdomen was of relatively poor quality with question the possibility of a small amount of gallbladder sludge. From the emergency department the patient received the following: Morphine 4 mg IV, then Zofran 4 mg IV, then famotidine 4 mg IV, then morphine 4 mg IV x 3. He continues to have significant epigastric area pain and bloating. Upon questioning, he does report history of gastric ulcers when he was younger. Intractable epigastric abdominal pain/GERD- Patient reports history of ulcers at a younger age. CT scan of the abdomen pelvis today reports resolution of colitis that was seen 03/02. Ultrasound of the abdomen suggest possible slight gallbladder sludge. NPO Start pantoprazole 40 mg IV twice daily with first dose now Famotidine 20 mg IV every 12 hours, with first dose now LR at 100 mL/h Zofran 4 mg IV every 6 hours as needed Acetaminophen 1 g IV every 8 hours as needed for mild pain or fever Dilaudid 0.5 mg IV every 3 hours as needed for moderate pain Dilaudid 1 mg IV every 3 hours as needed for severe pain Narcan availability per protocol Of note, patient been on large doses of morphine: Morphine extended release 30 mg p.o. every 8 hours as needed, oxycodone 20 mg p.o. every 4 hours as needed. He has had little relief from IV morphine given in ED. Examination is more consistent with esophagitis, esophageal ulcer, gastritis, gastric ulcer, duodenitis, duodenal ulcer. Consult gastroenterology for possible EGD History of back surgery- Patient reports that his back has been doing well since surgery and is due for follow-up at [facility] on 03/10. Suspect the physiologic stress of surgery and recover may have contributed to the beginnings of his epigastric pain. BPH with LUTS- Follow urine output while off medication tamsulosin and finasteride RA- Has been on prednisone 3 mg daily Placed on hydrocortisone 50 mg IV every 8 hours until taking p.o. again. Central hypogonadism- On testosterone cypionate every 7 days in the outpatient setting History of Present Illness Chief Complaint: The patient presents to the emergency department, accompanied by his , with complaint of persistently worsening epigastric area pain. Initially developed epigastric area pain a few months ago, and has had imaging studies done, most recently on 03/02/2025, where he was diagnosed with colitis, placed on antibiotics which he completed, and has had continually worsening epigastric area pain. He underwent lumbar spine surgery at [facility] in [place] in August, and reports that he has no issues with back pain. His epiga stric pain began a month or so after having had the back surgery, but reports that he did have some abdominal bloating while in the hospital there. His reports that the abdominal bloating has persisted since that time. He has had nausea without vomiting. He reports bowel movements are normal and he reports urine function is normal. He has had little oral intake over the past few days due to progressively worsening epigastric area pain. CT scan of abdomen pelvis in the emergency department today shows resolution of the previous colitis, chest x-ray is negative, and ultrasound of the abdomen was of relatively poor quality with question the possibility of a small amount of gallbladder sludge. From the emergency department the patient received the following: Morphine 4 mg IV, then Zofran 4 mg IV, then famotidine 4 mg IV, then morphine 4 mg IV x 3. He continues to have significant epigastric area pain and bloating. Primary Care Provider: Giuseppe Romero MD The patient is a 64-year-old male with a past medical history including male hypogonadism, alcohol dependence and in full remission, adrenal insufficiency, thoracolumbar kyphoscoliosis, history of urinary tract infection, GERD, BPH, hypertension, CKD stage II, LBBB, restrictive airway disease, and idiopathic cardiomyopathy. The patient presents to the emergency department, accompanied by his , with complaint of persistently worsening epigastric area pain. Initially developed epigastric area pain a few months ago, and has had imaging studies done, most recently on 03/02/2025, where he was diagnosed with colitis, placed on antibiotics which he completed, and has had continually worsening epigastric area pain. He underwent lumbar spine surgery at [facility] in [place] in August, and reports that he has no issues with back pain. His epigastric pain began a month or so after having had the back surgery, but reports that he did have some abdominal bloating while in the hospital there. His reports that the abdominal bloating has persisted since that time. He has had nausea without vomiting. He reports bowel movements are normal and he reports urine function is normal. He has had little oral intake over the past few days due to progressively worsening epigastric area pain. CT scan of abdomen pelvis in the emergency department today shows resolution of the previous colitis, chest x-ray is negative, and ultrasound of the abdomen was of relatively poor quality with question the possibility of a small amount of gallbladder sludge. From the emergency department the patient received the following: Morphine 4 mg IV, then Zofran 4 mg IV, then famotidine 4 mg IV, then morphine 4 mg IV x 3. He continues to have significant epigastric area pain and bloating. Upon questioning, he does report history of gastric ulcers when he was younger. Allergies Allergy/AdvReac Type Severity Reaction Status Date / Time No Known Allergies Allergy Verified 03/07/25 18:40 Home Medications Medication Instructions Recorded Confirmed Type multivitamin 1 tab PO QAM 01/19/20 03/07/25 History nitroglycerin 0.4 mg sublingual 0.4 mg sublingual Q5M PRN chest 01/01/22 03/07/25 Rx tablet pain #25 tabs diclofenac sodium 1 % topical gel 2 g topical QID PRN Pain #100 grams 10/20/23 03/07/25 Rx (Arthritis Pain (diclofenac)) tadalafil 5 mg tablet 5 mg PO DAILY #90 tabs 02/10/24 03/07/25 Rx tamsulosin 0.4 mg capsule (Flomax) 0.4 mg PO BID #180 caps 04/20/24 03/07/25 Rx cholecalciferol (vitamin D3) 125 125 mcg PO 2XWK #30 tabs 05/09/24 03/07/25 Rx mcg (5,000 unit) tablet (Vitamin D3) metoprolol succinate 25 mg 25 mg PO QAM #90 tabs 05/12/24 03/07/25 Rx tablet,extended release 24 hr spironolactone 25 mg tablet 25 mg PO QAM #180 tabs 06/22/24 03/07/25 Rx (Aldactone) finasteride 5 mg tablet 5 mg PO QPM #90 tabs 07/11/24 03/07/25 Rx valsartan 80 mg tablet 80 mg PO DAILY #90 tabs 07/18/24 03/07/25 Rx testosterone cypionate 100 mg/mL 50 mg (0.5 mL) subcut Q7D #10 mL 11/04/24 03/07/25 Rx intramuscular oil syringe with needle 3 mL 25 gauge #12 ea 11/14/24 03/01/25 Rx x 1" cetirizine 10 mg tablet 10 mg PO HS #30 tabs 11/16/24 03/07/25 Rx needle (disp) 18 G 18 gauge x 1" #100 ea 12/08/24 03/01/25 Rx (BD Regular Bevel [place]) omeprazole 20 mg capsule,delayed 20 mg PO BID #180 caps 01/02/25 03/07/25 Rx release morphine 30 mg tablet,extended 30 mg PO Q8H PRN Pain #90 tabs 02/14/25 03/07/25 Rx release (MS Contin) oxycodone 20 mg tablet 20 mg PO Q4H PRN pain #180 tabs 02/14/25 03/07/25 Rx amoxicillin 875 mg-potassium 1 tab PO BID 7 days #14 tabs 03/02/25 03/07/25 Rx clavulanate 125 mg tablet amoxicillin 500 mg capsule 2,000 mg PO DIRECTED PRN 1 HR 03/07/25 03/07/25 History PRIOR TO DENTAL PROCEDURES memantine 10 mg tablet 10 mg PO BID #180 tabs 03/07/25 03/07/25 Rx prednisone 1 mg tablet 3 mg (3 x 1 mg) PO DAILY #90 tabs 03/07/25 03/07/25 Rx Past Med/Surg History Problem List (Updated 03/07/25 @ 22:42 by Blaise Burkett) History of back surgery (Acute) Intractable epigastric abdominal pain (Acute) Rib fracture Hematoma Constipation Hypogonadism in male Chest pain Pseudoarthrosis of lumbar spine Adrenal insufficiency Iatrogenic, prednisone for decades Left foot drop Kyphosis deformity of spine Scoliosis Degeneration of thoracolumbar intervertebral disc Thoracolumbar kyphosis Flatback syndrome of lumbar region 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 UTI (urinary tract infection) Primary hypogonadism in male Spinal stenosis of lumbar region at multiple levels Rheumatoid arthritis GERD (gastroesophageal reflux disease) Well controlled and stable Anemia BPH (benign prostatic hyperplasia) Allergic rhinitis Hypertension Anxiety Sinusitis Rotator cuff arthropathy of left shoulder Left shoulder pain Central hypogonadism Hyponatremia Pulmonary nodules Chronic kidney disease, stage II (mild) Painful total knee replacement Diaphragmatic paralysis Long-term current use of steroids Osteoporosis LBBB (left bundle branch block) Chronic back pain hx pain pump -- worked for 7 days and then became infected and was removed. unable to reinsert. done in [place] "a long time ago" Osteoarthritis of hips, bilateral Restrictive airway disease Per records > Pt denies Per 06/2020 PFTS: Moderate restrictive physiology with bronchodilator response and decreased DLCO Medical History (HFpEF) heart failure with preserved ejection fraction Chronic sinusitis History of kidney stones History of diverticulitis Lyme disease 10/2023, treated with abx x 2 weeks, finished treatment, no issues History of pulmonary embolism Actinic keratosis Acquired deviated nasal septum Surgical History Status post left hip replacement Status post right hip replacement (~09/2021) History of laparoscopic appendectomy (06/24/21) Laparoscopic Appendectomy, Enterolysis, Repair of Umbilical Hernia - Juan Jones, 06/24/2021 History of total knee replacement 11/11/2019: SAB + PNB. No issues per anesthesia postop progress note. H/O cervical spine surgery 2 or 3 levels, limited ROM History of lumbar fusion X 2 WITH HARDWARE L2-L4 decompression-fusion 08/06/2020: Grade 1 view, Casey#2, ETT#8.0 atraumatic x 1. No issues per anesthesia postop progress note. 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 Beliefs That Will Affect Care: None marital status: Current Living Situation: Spouse current occupational status: retired and disabled current occupation: [employer] How many Children do You have: 1 Feels Safe at Home: Yes Childhood Exposure to Second-Hand Smoke: No caffeine: Yes Dental Care, Regularly: Yes Physical Activity Frequency: Does not Exercise Seatbelt Use: sometimes Sunscreen Use: No Assistive Devices: Cane Review of Systems Review of Systems: The patient denies chest pain, palpitations, shortness of breath, dyspnea on exertion, cough, lower extremity swelling, sore throat, fevers, chills, sweats, vomiting, diarrhea , constipation, blood in urine or stool, dysuria, urinary frequency or urgency, lightheadedness, dizziness, headache, memory loss, loss of consciousness, rash, abnormal bruising or bleeding, imbalance, focal or generalized weakness, numbness or tingling in arms or legs, generalized arthralgias or myalgias, back or neck pain, or night sweats. The review of systems is otherwise negative other than for that already noted above, and at least 10 systems have been reviewed. Physical Exam Physical Exam: The patient is awake, alert and oriented 3, well developed and well nourished, normocephalic and atraumatic, lying in bed and in no acute distress. HEENT--PERRL, EOMI, mucous membranes and oropharynx dry. Neck--supple. No JVD. No bruits. Thyroid normal, trachea midline, no adenopathy. Heart--normal S1 and S2. No murmurs, rubs or gallops. Lungs--clear bilaterally, no respiratory distress, no accessory muscle use. Abdomen--normal bowel sounds and soft. Significant tenderness to light pressure in the epigastric area Extremities--no cyanosis or clubbing. No edema. There are good distal pulses b/l. Dermatologic--normal skin turgor, normal color, no abnormal lymph nodes, no rash. Neurologic--cranial nerves II through XII grossly intact. Rheumatologic--normal range of motion. Psychiatric--normal affect. Results & Data Results & Data Vital Signs (Past 12 Hours) Vital Signs Temp Pulse Pulse Resp BP BP Pulse Ox 03/07/25 23:00 100 H 19 112/75 98 03/07/25 22:24 66 18 155/81 H 95 03/07/25 21:31 63 15 150/98 H 97 03/07/25 21:00 62 15 154/81 H 96 03/07/25 20:50 66 03/07/25 20:34 62 14 166/91 H 96 03/07/25 20:30 70 19 166/91 H 95 03/07/25 20:00 69 19 134/79 96 03/07/25 19:30 72 17 157/83 H 96 03/07/25 19:28 63 16 147/89 H 96 03/07/25 19:26 67 15 147/89 H 97 03/07/25 18:00 64 15 95 03/07/25 17:42 67 21 96 03/07/25 17:21 69 18 98 03/07/25 17:05 67 03/07/25 16:57 80 15 96 03/07/25 16:53 171/118 H 03/07/25 16:13 36.7 C 104 H 18 149/88 H 97 O2 Del Method O2 Flow Rate 03/07/25 23:00 Nasal Cannula 3 03/07/25 22:24 Room Air 03/07/25 21:31 Nasal Cannula 3 03/07/25 21:00 Room Air 03/07/25 20:50 03/07/25 20:34 Room Air 03/07/25 20:30 Room Air 03/07/25 20:00 Room Air 03/07/25 19:30 Room Air 03/07/25 19:28 Room Air 03/07/25 19:26 Room Air 03/07/25 18:00 Room Air 03/07/25 17:42 Room Air 03/07/25 17:21 Room Air 03/07/25 17:05 03/07/25 16:57 Room Air 03/07/25 16:53 03/07/25 16:13 Room Air Laboratory Results Laboratory Results WBC 8.08 K/ul (4.8-10.8) 03/07/25 16:23 RBC 4.95 M/uL (4.70-6.10) 03/07/25 16:23 Hgb 15.4 g/dl (14.0-18.0) 03/07/25 16:23 Hct 44.5 % (42.0-52.0) 03/07/25 16:23 MCV 89.9 fL (80.0-100.0) 03/07/25 16:23 MCH 31.1 pg (25.0-34.0) 03/07/25 16:23 MCHC 34.6 g/dL (32.0-36.0) 03/07/25 16:23 RDW Std Deviation 43.9 fL (36.4-46.3) 03/07/25 16:23 RDW Coeff of Jaja 13.2 % (11.5-14.5) 03/07/25 16:23 Plt Count 301 K/uL (130-400) 03/07/25 16:23 MPV 9.5 fL (9.4-12.4) 03/07/25 16:23 Immature Gran % (Auto) 0.4 % 03/07/25 16:23 Neut % (Auto) 69.3 % 03/07/25 16:23 Lymph % (Auto) 18.6 % 03/07/25 16:23 Cedar % (Auto) 8.5 % 03/07/25 16:23 Eos % (Auto) 2.6 % 03/07/25 16:23 Baso % (Auto) 0.6 % 03/07/25 16:23 Neut # (Auto) 5.60 K/uL (1.40-6.50) 03/07/25 16:23 Lymph # (Auto) 1.50 K/uL (1.20-3.40) 03/07/25 16:23 Cedar # (Auto) 0.69 K/uL (0.11-0.59) H 03/07/25 16:23 Eos # (Auto) 0.21 K/uL (0.00-0.50) 03/07/25 16:23 Baso # (Auto) 0.05 K/uL (0.00-0.20) 03/07/25 16:23 Immature Gran # (Auto) 0.03 K/uL (0.01-0.20) 03/07/25 16:23 Sodium 140 mmol/L (136-145) 03/07/25 16:23 Potassium 3.8 mmol/L (3.5-5.1) 03/07/25 16:23 Chloride 102 mmol/L (98-107) 03/07/25 16:23 Carbon Dioxide 31 mmol/L (21-32) 03/07/25 16:23 Anion Gap 7 (3-11) 03/07/25 16:23 BUN 10 mg/dl (6-23) 03/07/25 16:23 Creatinine 0.86 mg/dl (0.6-1.4) 03/07/25 16:23 Est Cr Clr Drug Dosing 79.0 ml/min 03/07/25 16:23 eGFR 95.50 03/07/25 16:23 BUN/Creatinine Ratio 11.6 (10-20) 03/07/25 16:23 Glucose 100 mg/dl (70-99(Fasting)) H 03/07/25 16:23 Lactate 0.7 mmol/L (0.4-2.0) 03/07/25 22:52 Calcium 9.4 mg/dl (8.6-10.3) 03/07/25 16:23 Total Bilirubin 0.5 mg/dl (0.2-1.0) 03/07/25 16:23 AST 20 U/L (13-39) 03/07/25 16:23 ALT 13 U/L (7-52) 03/07/25 16:23 Alkaline Phosphatase 90 U/L (34-104) 03/07/25 16:23 Total Protein 7.4 gm/dl (6.0-8.3) 03/07/25 16:23 Albumin 4.4 gm/dl (3.4-5.0) 03/07/25 16:23 Globulin 3.0 gm/dl (2.5-4.0) 03/07/25 16:23 Albumin/Globulin Ratio 1.5 (0.9-2) 03/07/25 16:23 Lipase 28 U/L (11-82) 03/07/25 16:23 Urine Color Yellow 03/07/25 16:23 Urine Appearance Clear (Clear) 03/07/25 16:23 Urine pH 8.0 (4.5-7.5) H 03/07/25 16:23 Ur Specific [place] 1.010 (1.000-1.030) 03/07/25 16:23 Urine Protein Negative (Negative) 03/07/25 16:23 Urine Glucose (UA) Negative (Negative) 03/07/25 16:23 Urine Ketones Negative (Negative) 03/07/25 16:23 Urine Blood Negative (Negative) 03/07/25 16:23 Urine Nitrite Negative (Negative) 03/07/25 16:23 Urine Bilirubin Negative (Negative) 03/07/25 16:23 Urine Urobilinogen Negative (Negative) 03/07/25 16:23 Ur Leukocyte Esterase Negative (Negative) 03/07/25 16:23 Urine Comment 03/07/25 16:23 Impressions Abdomen Ultrasound 03/07/25 17:16 EXAM: Abdomen limited CLINICAL HISTORY: Abdominal pain TECHNIQUE: Ultrasound interrogation of the abdomen was performed with grayscale and color Doppler imaging. PRIORS: None FINDINGS: Examination is extremely limited due to shadowing bowel gas. The liver is normal in size and configuration. Normal liver parenchyma demonstrated. No intrahepatic ductal dilatation. No hepatic mass. Possible gallbladder sludge is noted. No cholelithiasis, gallbladder wall thickening or sonographic Velazquez sign. Common bile duct is obstructed by shadowing bowel gas. Right kidney is normal in size and configuration measuring 9.9 cm. No hydronephrosis. Pancreas is obscured due to shadowing bowel gas. IVC and aorta are patent. Aorta is normal in size. IMPRESSION: Extremely limited examination with possible gallbladder sludge and no discrete gallstones. The common bile duct and pancreas were not visualized. ACT 112: Positive. There are findings on this examination that require communication between the performing entity and the patient following Patient Test Result Information Act ([place] ACT 112) guidelines. Electronically signed by Lisa Vaca 03-07-2025 7:57 PM Chest X-Ray 03/07/25 17:28 EXAM: X-ray chest one-view portable CLINICAL HISTORY: Epigastric pain PRIORS: 05/19/2024 TECHNIQUE: AP upright surgical hardware of the FINDINGS: Thoracic spine present appearing in the interval. Right hemidiaphragm is elevated, unchanged. No airspace consolidation, effusion or congestive changes. cardiac silhouette is moderately enlarged. No pneumothorax. Trachea is patent. Osseous structures demonstrate no acute abnormality. No radiopaque foreign body. No subdiaphragmatic gas. IMPRESSION: No plain film evidence of an acute cardiopulmonary process. Enlarged cardiac silhouette, unchanged. Moderate elevation of the right hemidiaphragm, unchanged. Electronically signed by Lisa Vaca 03-07-2025 6:09 PM Abdomen/Pelvis CT 03/07/25 20:36 Exam(s): CT ABDOMEN + PELVIS With Contrast IV Amt: 90 ml optiray 320 EXAM: CT Abdomen and Pelvis With Intravenous Contrast CLINICAL HISTORY: Reason for exam: Abd pain, N/V. TECHNIQUE: Axial computed tomography images of the abdomen and pelvis with intravenous contrast. CTDI is 23.66 mGy and DLP is 1197.51 mGy-cm. Automated exposure control was utilized for the study. A dose lowering technique was utilized adhering to the principles of ALARA. CONTRAST: Patient received 90 ml optiray 320 of IV contrast COMPARISON: 03/02/2025 FINDINGS: Lung bases: Unremarkable. No mass. No consolidation. ABDOMEN: Liver: Unremarkable. No mass. Gallbladder and bile ducts: Unremarkable. No calcified stones. No ductal dilation. Pancreas: Unremarkable. No mass. No ductal dilation. Spleen: Unremarkable. No splenomegaly. Adrenals: Unremarkable. No mass. Kidneys and ureters: Unremarkable. No solid mass. No hydronephrosis. Stomach and bowel: Interval resolution of wall thickening involving the colon. No obstruction. PELVIS: Appendix: No findings to suggest acute appendicitis. Bladder: Unremarkable. No mass. Reproductive: Unremarkable as visualized. ABDOMEN and PELVIS: Intraperitoneal space: Unremarkable. No free air. No significant fluid collection. Bones/joints: Extensive postop changes thoracic and lumbar spine. Bilateral hip arthroplasties unchanged from prior exam. No acute fracture. No dislocation. Soft tissues: Unremarkable. Vasculature: Unremarkable. No abdominal aortic aneurysm. Lymph nodes: Unremarkable. No enlarged lymph nodes. IMPRESSION: No acute findings in the abdomen or pelvis. Interval resolution of descending colonic inflammatory changes. Electronically signed by: Nahun Logan MD 03/07/25 22:20 PM Code Status & VTE Plan Code Status Full code VTE Prophylaxis Plan VTE Prophylaxis will be ordered: Yes PG Care Time/CCT Total # of Minutes Spent Total Time Spent with Patient: Total time spent is greater than 50% in coordination of care (as documented) at patient's floor/unit and/or counseling patient: Coding Level of Care Code 72872 INT INP/OBS CARE 3/75MIN Diagnoses Intractable epigastric abdominal pain R10.13 History of back surgery Z98.890 BPH (benign prostatic hyperplasia) N40.0
[2025-03-08] MEDS: PANTOprazole 40 MG/10 ML SYR IV STA (00:15)
[2025-03-08] MEDS: LACTATED RINGER'S 1,000 ML IV SCH (00:20)
[2025-03-08] MEDS ORDERED: ACETAMINOPHEN 1,000 MG/100 ML VIAL IV PRN (01:21)
[2025-03-08] MEDS: HYDROmorphone INJ 1 MG/ML SYRINGE IV PRN (01:40)
[2025-03-08] MEDS ORDERED: HYDROmorphone INJ 0.5 MG/0.5 ML SYR IV PRN (05:24)
[2025-03-08] MEDS: LIDOCAINE 5% 1 PATCH TD STA (06:03)
[2025-03-08] MEDS ORDERED: CALCIUM CARBONATE 500 MG CHEWABLE TAB PO PRN (06:04)
[2025-03-08] MEDS: ACETAMINOPHEN 1,000 MG/100 ML VIAL IV SCH ×2 (06:04→06:24)
[2025-03-08] MEDS: SODIUM CHLORIDE 0.9% 1,000 ML IV SCH (06:23)
[2025-03-08] MEDS: HYDROmorphone INJ 0.5 MG/0.5 ML SYR IV PRN (06:44)
[2025-03-08 06:54] LABS: Hematocrit (blood only) 39.1 % (42.0-52.0); Hemoglobin 12.8 g/dl (14.0-18.0); Immature Granulocytes # (auto) 0.03 K/uL (0.01-0.20); Immature Granulocytes % (auto) 0.5 %; Mean Corpuscular Hemoglobin 29.6 pg (25.0-34.0); Mean Corpuscular Volume 90.3 fL (80.0-100.0); Platelet Count 249 K/uL (130-400); RDW Standard Deviation 43.8 fL (36.4-46.3); Red Blood Count 4.33 M/uL (4.70-6.10); White Blood Count 6.35 K/ul (4.8-10.8)
--- NOTE | 2025-03-08 07:32 | XRay Report ---
EXAM: XR KUB/Abdomen 1 view CLINICAL HISTORY: abdominal pain TECHNIQUE: X-ray images of the abdomen were obtained in supine and upright positions. COMPARISON: No prior studies available for comparison. FINDINGS: Gas Pattern: Gas pattern within the abdomen is normal. No evidence of bowel obstruction or distention. Soft Tissues: Contrast noted involving bilateral renal pelvicalyceal system and urinary bladder. Soft tissues of the abdomen appear normal without evidence of masses or calcifications. Liver, spleen, and kidneys are of normal size and position. Postoperative changes with orthopedic device are seen in lumbar spine and pelvic bones. Bilateral total hip replacement status. IMPRESSION: Contrast noted involving bilateral renal pelvicalyceal system and urinary bladder. Postoperative changes with orthopedic device are seen in lumbar spine and pelvic bones. Bilateral total hip replacement status. No other abnormality seen. Electronically signed by Claudio Aranda 03-08-2025 07:32 AM
[2025-03-08 07:39] LABS: Alanine Aminotransferase 9.0 U/L (7-52); Albumin Globulin Ratio 1.1 (0.9-2); Albumin Level 3.1 gm/dl (3.4-5.0); Alkaline Phosphatase 73.0 U/L (34-104); Anion Gap 7.0 (3-11); Bilirubin,Total 0.6 mg/dl (0.2-1.0); Blood Urea Nitrogen 9.0 mg/dl (6-23); Calcium 8.6 mg/dl (8.6-10.3); Carbon Dioxide 28.0 mmol/L (21-32); Chloride 103.0 mmol/L (98-107); Creatinine Clr Calc Pharmacy 82.8 ml/min; Globulin 2.7 gm/dl (2.5-4.0); Glucose 82.0 mg/dl (70-99(Fasting)); Magnesium 2.1 mg/dl (1.7-2.4); Potassium 3.9 mmol/L (3.5-5.1); Sodium 138.0 mmol/L (136-145); Total Protein 5.8 gm/dl (6.0-8.3)
[2025-03-08] MEDS: SUCRALFATE 1 GM/10 ML UDC PO SCH (07:43)
[2025-03-08] MEDS: FAMOTIDINE 20MG IV PUSH 20 MG/5 ML SYR IV SCH (07:55)
[2025-03-08] MEDS: PANTOprazole 40 MG/10 ML SYR IV SCH (07:55)
[2025-03-08] MEDS: HYDROCORTISONE SOD 50 MG in SYRINGE 0 ML IV SCH (07:56)
[2025-03-08] MEDS ORDERED: HYDROCORTISONE SOD SUCCINATE 100 MG/2 ML VIAL IV SCH (08:00)
[2025-03-08] MEDS: ONDANSETRON INJ 2 MG/ML 2 ML VIAL IV PRN (09:11)
--- NOTE | 2025-03-08 09:32 | Gastrointestinal Consultation ---
Date of Consultation March 08, 2025 Assessment & Plan (1) Intractable epigastric abdominal pain: 64 year old male with history of hypogonadism, alcohol dependence and in full remission, adrenal insufficiency, thoracolumbar kyphoscoliosis, history of urinary tract infection, GERD, BPH, hypertension, CKD stage II, LBBB, restrictive airway disease, and idiopathic cardiomyopathy, lumbar spine surgery at [facility] in [place] in August admitted w/ abd pain. CT w/o acute findings, KUB w/o acute findings, LFTs and lipase non-elevated, last EGD/Colonoscopy reviewed. NPO for EGD today Continue antiemetics Continue IV PPI Continue Pepcid GERD dietary and lifestyle changes discussed I spent a total of 60 minutes on the date of service in review of patient's record, and previously obtained information in person and appropriate medical visit, discussion and education of plan, with patient and/or caregiver, placing orders for tests/referral/procedures as medically necessary and documentation of pertinent clinical information in patient's medical records for their visit today. Supervising Physician Co-Signing Physician Notes Mid abdominal pain. Described as an uncomfortable sensation but becoming incre asingly sharp over the last month or so. Patient takes chronic back pain medications in the form of narcotics these do not appear to be controlling his current discomfort. His abdominal examination CT scan and labs actually look relatively unremarkable. Vitals are stable. EGD today to evaluate for peptic ulcer disease gastric neoplasia esophagitis delayed gastric emptying as a source for his discomfort. He is on a PPI so peptic ulcer disease is less probable. History of Present Illness Reason for Consultation: abd pain Requesting Physician: Barry Larkin MD, PhD Attending Physician: Barry Larkin MD, PhD History of Present Illness 64 year old male with history of hypogonadism, alcohol dependence and in full remission, adrenal insufficiency, thoracolumbar kyphoscoliosis, history of urinary tract infection, GERD, BPH, hypertension, CKD stage II, LBBB, restrictive airway disease, and idiopathic cardiomyopathy, lumbar spine surgery at [facility] in [place] in August admitted w/ abd pain. GI was asked to evaluate. Endorses upper abd pain since his back surgery. This worsened about 2 months ago and has been ongoing, nagging despite intervention. He reports the pain is both lower abdominal and epigastric region. Unchanged w/ oral intake. Associated w/ nausea, decreased appetite. Has had GERD despite PPI. No dysphagia. Suggests stools move daily. Is on scheduled opioids. Will use Senna PRN constipation. No ETOh No tobacco No marijuana CTAP 2024: Liver: Unremarkable. No mass. Gallbladder and bile ducts: Unremarkable. No calcified stones. No ductal dilation. Pancreas: Unremarkable. No mass. No ductal dilation. Stomach and bowel: Interval resolution of wall thickening involving the colon. No obstruction. EGD 2019: gastric polyp, Colonoscopy 2019 hemorrhoids, tics, hyperplastic polyps Allergies Allergy/AdvReac Type Severity Reaction Status Date / Time No Known Allergies Allergy Verified 03/07/25 18:40 Home Medications Medication Instructions Recorded Confirmed Type multivitamin 1 tab PO QAM 01/19/20 03/07/25 History nitroglycerin 0.4 mg sublingual 0.4 mg sublingual Q5M PRN chest 01/01/22 03/07/25 Rx tablet pain #25 tabs diclofenac sodium 1 % topical gel 2 g topical QID PRN Pain #100 grams 10/20/23 03/07/25 Rx (Arthritis Pain (diclofenac)) tadalafil 5 mg tablet 5 mg PO DAILY #90 tabs 02/10/24 03/07/25 Rx tamsulosin 0.4 mg capsule (Flomax) 0.4 mg PO BID #180 caps 04/20/24 03/07/25 Rx cholecalciferol (vitamin D3) 125 125 mcg PO 2XWK #30 tabs 05/09/24 03/07/25 Rx mcg (5,000 unit) tablet (Vitamin D3) metoprolol succinate 25 mg 25 mg PO QAM #90 tabs 05/12/24 03/07/25 Rx tablet,extended release 24 hr spironolactone 25 mg tablet 25 mg PO QAM #180 tabs 06/22/24 03/07/25 Rx (Aldactone) finasteride 5 mg tablet 5 mg PO QPM #90 tabs 07/11/24 03/07/25 Rx valsartan 80 mg tablet 80 mg PO DAILY #90 tabs 07/18/24 03/07/25 Rx testosterone cypionate 100 mg/mL 50 mg (0.5 mL) subcut Q7D #10 mL 11/04/24 03/07/25 Rx intramuscular oil syringe with needle 3 mL 25 gauge #12 ea 11/14/24 03/01/25 Rx x 1" cetirizine 10 mg tablet 10 mg PO HS #30 tabs 11/16/24 03/07/25 Rx needle (disp) 18 G 18 gauge x 1" #100 ea 12/08/24 03/01/25 Rx (BD Regular Bevel [place]) omeprazole 20 mg capsule,delayed 20 mg PO BID #180 caps 01/02/25 03/07/25 Rx release morphine 30 mg tablet,extended 30 mg PO Q8H PRN Pain #90 tabs 02/14/25 03/07/25 Rx release (MS Contin) oxycodone 20 mg tablet 20 mg PO Q4H PRN pain #180 tabs 02/14/25 03/07/25 Rx amoxicillin 875 mg-potassium 1 tab PO BID 7 days #14 tabs 03/02/25 03/07/25 Rx clavulanate 125 mg tablet amoxicillin 500 mg capsule 2,000 mg PO DIRECTED PRN 1 HR 03/07/25 03/07/25 History PRIOR TO DENTAL PROCEDURES memantine 10 mg tablet 10 mg PO BID #180 tabs 03/07/25 03/07/25 Rx prednisone 1 mg tablet 3 mg (3 x 1 mg) PO DAILY #90 tabs 03/07/25 03/07/25 Rx Patient History Medical History (HFpEF) heart failure with preserved ejection fraction Chronic sinusitis History of kidney stones History of diverticulitis Lyme disease 10/2023, treated with abx x 2 weeks, finished treatment, no issues History of pulmonary embolism Actinic keratosis Acquired deviated nasal septum Surgical History Status post left hip replacement Status post right hip replacement (~09/2021) History of laparoscopic appendectomy (06/24/21) Laparoscopic Appendectomy, Enterolysis, Repair of Umbilical Hernia - Juan Jones DO 06/24/2021 History of total knee replacement 11/11/2019: SAB + PNB. No issues per anesthesia postop progress note. H/O cervical spine surgery 2 or 3 levels, limited ROM History of lumbar fusion X 2 WITH HARDWARE L2-L4 decompression-fusion 08/06/2020: Grade 1 view, Casey#2, ETT#8.0 atraumatic x 1. No issues per anesthesia postop progress note. History of lithotripsy History of colonoscopy Family History Mother Family hx of colon cancer Father , age 65 Myocardial infarction Other No family history of adverse response to anesthesia No family history of bleeding disorder Denies family history of Ovarian cancer Prostate cancer Breast cancer Lung cancer Social History Smoking Status: Never smoker Second Hand Exposure: No; Do You Dip or Chew Tobacco: No; Hx Alcohol Use: No Hx Substance Use: No Preferred Language: Congolese Communication Ability: Effective Visual Impairment: Partially Limited Pulverizer Feeder Required: No Beliefs That Will Affect Care: None marital status: Current Living Situation: Spouse current occupational status: retired and disabled current occupation: [employer] How many Children do You have: 1 Feels Safe at Home: Yes Childhood Exposure to Second-Hand Smoke: No caffeine: Yes Dental Care, Regularly: Yes Physical Activity Frequency: Does not Exercise Seatbelt Use: sometimes Sunscreen Use: No Assistive Devices: Cane Review of Systems Review of Systems: All other findings negative except as noted in HPI. Physical Exam Gastrointestinal (Abdomen): normal bowel sounds, soft, nontender, no hepatosplenomegaly Results & Data Vital Signs (Past 12 Hours) Vital Signs Temp Pulse Pulse Resp BP BP Pulse Ox 03/08/25 08:06 98.2 F 59 L 14 147/77 H 94 03/08/25 03:57 97.5 F L 55 L 16 130/70 96 03/08/25 01:30 97.5 F L 63 18 165/69 H 96 03/08/25 01:20 62 03/08/25 01:00 58 L 17 130/89 95 03/08/25 00:30 58 L 16 137/89 95 03/08/25 00:00 61 17 137/89 95 03/08/25 00:00 62 17 137/89 95 03/07/25 23:00 72 17 135/99 97 03/07/25 23:00 100 H 19 112/75 98 03/07/25 22:30 66 18 151/80 H 96 03/07/25 22:24 66 18 155/81 H 95 03/07/25 22:00 63 20 155/81 H 96 03/07/25 21:31 63 15 150/98 H 97 O2 Del Method O2 Flow Rate 03/08/25 08:06 Room Air 03/08/25 03:57 Room Air 03/08/25 01:30 Room Air 03/08/25 01:20 03/08/25 01:00 Room Air 03/08/25 00:30 Room Air 03/08/25 00:00 Room Air 03/08/25 00:00 Room Air 03/07/25 23:00 Room Air 03/07/25 23:00 Nasal Cannula 3 03/07/25 22:30 Room Air 03/07/25 22:24 Room Air 03/07/25 22:00 Room Air 03/07/25 21:31 Nasal Cannula 3 Laboratory Results 03/08/25 03/07/25 03/07/25 Range/Units 06:10 22:52 16:23 WBC 6.35 8.08 (4.8-10.8) K/ul RBC 4.33 L 4.95 (4.70-6.10) M/uL Hgb 12.8 L 15.4 (14.0-18.0) g/dl Hct 39.1 L 44.5 (42.0-52.0) % MCV 90.3 89.9 (80.0-100.0) fL MCH 29.6 31.1 (25.0-34.0) pg MCHC 32.7 34.6 (32.0-36.0) g/dL RDW Std Deviation 43.8 43.9 (36.4-46.3) fL RDW Coeff of [place] 13.3 13.2 (11.5-14.5) % Plt Count 249 301 (130-400) K/uL MPV 9.5 9.5 (9.4-12.4) fL Immature Gran % (Auto) 0.5 0.4 % Neut % (Auto) 57.1 69.3 % Lymph % (Auto) 24.7 18.6 % Fleming % (Auto) 10.1 8.5 % Eos % (Auto) 6.5 2.6 % Baso % (Auto) 1.1 0.6 % Neut # (Auto) 3.63 5.60 (1.40-6.50) K/uL Lymph # (Auto) 1.57 1.50 (1.20-3.40) K/uL Fleming # (Auto) 0.64 H 0.69 H (0.11-0.59) K/uL Eos # (Auto) 0.41 0.21 (0.00-0.50) K/uL Baso # (Auto) 0.07 0.05 (0.00-0.20) K/uL Immature Gran # (Auto) 0.03 0.03 (0.01-0.20) K/uL Sodium 138 140 (136-145) mmol/L Potassium 3.9 3.8 (3.5-5.1) mmol/L Chloride 103 102 (98-107) mmol/L Carbon Dioxide 28 31 (21-32) mmol/L Anion Gap 7 7 (3-11) BUN 9 10 (6-23) mg/dl Creatinine 0.82 0.86 (0.6-1.4) mg/dl Est Cr Clr Drug Dosing 82.8 79.0 ml/min eGFR 96.88 95.50 BUN/Creatinine Ratio 11.0 11.6 (10-20) Glucose 82 100 H (70-99(Fasting)) mg/dl Lactate 0.7 (0.4-2.0) mmol/L Calcium 8.6 9.4 (8.6-10.3) mg/dl Magnesium 2.1 (1.7-2.4) mg/dl Total Bilirubin 0.6 0.5 (0.2-1.0) mg/dl AST 16 20 (13-39) U/L ALT 9 13 (7-52) U/L Alkaline Phosphatase 73 90 (34-104) U/L Total Protein 5.8 L D 7.4 (6.0-8.3) gm/dl Albumin 3.1 L 4.4 (3.4-5.0) gm/dl Globulin 2.7 3.0 (2.5-4.0) gm/dl Albumin/Globulin Ratio 1.1 1.5 (0.9-2) Lipase 28 (11-82) U/L Urine Color Yellow Urine Appearance Clear (Clear) Urine pH 8.0 H (4.5-7.5) Ur Specific [place] 1.010 (1.000-1.030) Urine Protein Negative (Negative) Urine Glucose (UA) Negative (Negative) Urine Ketones Negative (Negative) Urine Blood Negative (Negative) Urine Nitrite Negative (Negative) Urine Bilirubin Negative (Negative) Urine Urobilinogen Negative (Negative) Ur Leukocyte Esterase Negative (Negative) Urine Comment PG Care Time/CCT Total # of Minutes Spent Total Time Spent with Patient: Total time spent is greater than 50% in coordination of care (as documented) at patient's floor/unit and/or counseling patient: Coding Level of Care Code 16554 INT INP/OBS CARE 2/55MIN Diagnoses Intractable epigastric abdominal pain R10.13
[2025-03-08] MEDS: OPTIRAY 320 125ml IV ONE (13:33)
--- NOTE | 2025-03-08 13:48 | CT Scan Report ---
CT angio chest w con CLINICAL HISTORY: Elevated D-dimer COMPARISON STUDY: 01/09/2025 FINDINGS: There is stable elevation of the right hemidiaphragm with atelectasis at the right lung bas e. No new consolidation or pleural effusion seen. No pneumothorax. No enlarged adenopathy. No pericar dial effusion. No thoracic aortic dissection or aneurysm. No pulmonary embolism. There are diffuse de generative changes of thoracic spine. Stable metallic fusion at the lower cervical and lower thoracic spine. There are a few old left rib fractures. IMPRESSION: No pulmonary embolism seen. ACT 112: Negative or not required by law. Electronically signed by: Ricardo Pacheco M.D. 03/08/2025 1:47 PM
--- NOTE | 2025-03-08 15:56 | Anesthesiology Consultation ---
Date of Service March 08, 2025 Assessment & Plan Chart Review Chart Review: Acceptable Risk for Surgery and Patient NOT seen in Pre Admission Testing Patient did report chest pain today. He thinks it is from his upper stomach and related to abdominal pain. No radiation to the arms or neck. Not worse with activity or rest. Repeated EKG in pre op 03/08/25 without any new findings. LBBB pre-existing. OK to proceed . Consults Requested none ASA ASA3 Proposed Anesthesia Anesthesia Type: MAC Risk / Benefits Reviewed With: PT / POA / Parent / Guardian, Accepts Plan and Informed Consent Obtained History Surgery Operation Date: 03/08/25 17:40 Proposed Procedures p Esophagogastroduodenoscopy Dr. Sergio Hill MD Height/Weight Height: 5 ft 7 in Weight: 74.7 kg Allergies Allergy/AdvReac Type Severity Reaction Status Date / Time No Known Allergies Allergy Verified 03/07/25 18:40 Medications Home Medications Medication Instructions Recorded Confirmed Last Taken multivitamin 1 tab PO QAM 01/19/20 03/07/25 03/07/25 nitroglycerin 0.4 mg sublingual 0.4 mg sublingual Q5M PRN chest 01/01/22 03/07/25 Unknown tablet pain #25 tabs diclofenac sodium 1 % topical gel 2 g topical QID PRN Pain #100 grams 10/20/23 03/07/25 Unknown (Arthritis Pain (diclofenac)) tadalafil 5 mg tablet 5 mg PO DAILY #90 tabs 02/10/24 03/07/25 03/07/25 tamsulosin 0.4 mg capsule (Flomax) 0.4 mg PO BID #180 caps 04/20/24 03/07/25 03/07/25 08:00 cholecalciferol (vitamin D3) 125 125 mcg PO 2XWK #30 tabs 05/09/24 03/07/25 03/07/25 mcg (5,000 unit) tablet (Vitamin D3) metoprolol succinate 25 mg 25 mg PO QAM #90 tabs 05/12/24 03/07/25 03/07/25 tablet,extended release 24 hr spironolactone 25 mg tablet 25 mg PO QAM #180 tabs 06/22/24 03/07/25 03/07/25 (Aldactone) finasteride 5 mg tablet 5 mg PO QPM #90 tabs 07/11/24 03/07/25 03/06/25 valsartan 80 mg tablet 80 mg PO DAILY #90 tabs 07/18/24 03/07/25 03/07/25 testosterone cypionate 100 mg/mL 50 mg (0.5 mL) subcut Q7D #10 mL 11/04/24 03/07/25 Unknown intramuscular oil syringe with needle 3 mL 25 gauge #12 ea 11/14/24 03/01/25 Unknown x 1" cetirizine 10 mg tablet 10 mg PO HS #30 tabs 11/16/24 03/07/25 03/06/25 needle (disp) 18 G 18 gauge x 1" #100 ea 12/08/24 03/01/25 Unknown (BD Regular Bevel [place]) omeprazole 20 mg capsule,delayed 20 mg PO BID #180 caps 01/02/25 03/07/25 03/07/25 08:00 release morphine 30 mg tablet,extended 30 mg PO Q8H PRN Pain #90 tabs 02/14/25 03/07/25 Unknown release (MS Contin) oxycodone 20 mg tablet 20 mg PO Q4H PRN pain #180 tabs 02/14/25 03/07/25 Unknown amoxicillin 875 mg-potassium 1 tab PO BID 7 days #14 tabs 03/02/25 03/07/25 03/07/25 08:00 clavulanate 125 mg tablet amoxicillin 500 mg capsule 2,000 mg PO DIRECTED PRN 1 HR 03/07/25 03/07/25 Unknown PRIOR TO DENTAL PROCEDURES memantine 10 mg tablet 10 mg PO BID #180 tabs 03/07/25 03/07/25 03/07/25 08:00 prednisone 1 mg tablet 3 mg (3 x 1 mg) PO DAILY #90 tabs 03/07/25 03/07/25 03/07/25 Active Medications Generic Name Dose Route Start Last Admin Trade Name Freq PRN Reason Stop Dose Admin Hydromorphone HCl 0.5 mg 03/08/25 05:24 03/08/25 15:06 Hydromorphone Inj 0.5 Mg/0.5 Ml Syr IV 03/21/25 23:17 0.5 mg Q3H PRN Administration Severe Pain (Scale 7, 8, 9,10) Pantoprazole Sodium 40 mg in 10 mls @ 5 mls/min 03/08/25 09:00 03/08/25 07:55 Protonix IV 04/07/25 08:59 5 mls/min BID WILLIAM Administration Famotidine 20 mg in 5 mls @ 2.5 mls/min 03/08/25 08:00 03/08/25 07:55 Pepcid 20mg Iv Push IV 04/07/25 07:59 2.5 mls/min Q12H WILLIAM Administration Hydrocortisone Sodium 1 mls @ 4 mls/min 03/08/25 08:00 03/08/25 07:56 Succinate 50 mg/ Syringe IV 04/07/25 07:59 4 mls/min Q8H WILLIAM Administration Acetaminophen 1,000 mg in 100 mls @ 400 mls/hr 03/08/25 05:45 03/08/25 14:18 Ofirmev IV 03/11/25 05:44 Infused Q8 WILLIAM Infusion Sodium Chloride 1,000 mls @ 100 mls/hr 03/08/25 06:00 03/08/25 15:50 Nss IV 03/11/25 05:59 0 mls/hr .Q10H WILLIAM Infusion Ondansetron HCl 4 mg 03/08/25 01:21 03/08/25 09:11 Ondansetron Inj 2 Mg/Ml 2 Ml Vial IV 04/07/25 01:20 4 mg Q6H PRN Administration NAUSEA/VOMITING Sucralfate 1 gm 03/08/25 07:30 03/08/25 12:22 Sucralfate 1 Gm/10 Ml Udc PO 04/07/25 07:29 1 gm ACHS WILLIAM Administration NPO Date Last Intake of Fluids: 03/08/25 Time Last Intake of Fluids: 09:00 Date Last Intake of Solids: 03/07/25 Time Last Intake of Solids: 09:00 Past Medical History Medical History (HFpEF) heart failure with preserved ejection fraction Chronic sinusitis History of kidney stones History of diverticulitis Lyme disease 10/2023, treated with abx x 2 weeks, finished treatment, no issues History of pulmonary embolism Actinic keratosis Acquired deviated nasal septum Exercise / Class Metabolic Activity II 4-5 Yardwork/Stairs/Walk up hill Past Family History Family History Mother Family hx of colon cancer Father , age 65 Myocardial infarction Other No family history of adverse response to anesthesia No family history of bleeding disorder Denies family history of Ovarian cancer Prostate cancer Breast cancer Lung cancer Past Surgical History Surgical History Status post left hip replacement Status post right hip replacement (~09/2021) History of laparoscopic appendectomy (06/24/21) Laparoscopic Appendectomy, Enterolysis, Repair of Umbilical Hernia - Juan Jones, DO 06/24/2021 History of total knee replacement 11/11/2019: SAB + PNB. No issues per anesthesia postop progress note. H/O cervical spine surgery 2 or 3 levels, limited ROM History of lumbar fusion X 2 WITH HARDWARE L2-L4 decompression-fusion 08/06/2020: Grade 1 view, Casey#2, ETT#8.0 atraumatic x 1. No issues per anesthesia postop progress note. History of lithotripsy History of colonoscopy Past Anesthesia History No Hx of Anesthesia Complications and No Family Hx of Anesthesia Complications History of PONV No Hx of PONV and No Hx of Motion Sickness Social History Smoking Status: Never smoker Do You Dip or Chew Tobacco: No Hx Alcohol Use: No Alcohol type: hard liquor Hx Substance Use: No substance use type: does not use Review of Systems ROS Unobtainable: All systems reviewed & are unremarkable except as noted in HPI & below Physical Exam Vital Signs Last Vital Signs Temp 36.9 C 03/08/25 15:51 Pulse 62 03/08/25 15:51 Resp 16 03/08/25 15:51 BP 171/80 H 03/08/25 15:51 Pulse Ox 96 03/08/25 15:51 O2 Del Method Room Air 03/08/25 15:51 O2 Flow Rate 3 03/07/25 23:00 ENMT Mouth: no TMJ abnormality Thyromental Distance: > or= 3.5 Finger Breadths Mallampati Class: II Neck normal visual inspection and trachea midline; neck extension not limited Respiratory normal respiratory effort Auscultation: lungs clear to auscultation bilaterally Cardiovascular Rate/Rhythm: regular rate and regular rhythm Heart Sounds: no murmur Musculoskeletal Spine: normal cervical ROM Extremities: full ROM of extremities Neurologic moves all extremities Psychiatric Orientation: alert and oriented x 3 Testing Laboratory Results 03/08/25 06:10 03/08/25 06:10 Urine Color Yellow 03/07/25 16:23 Urine Appearance Clear (Clear) 03/07/25 16:23 Urine pH 8.0 (4.5-7.5) H 03/07/25 16:23 Ur Specific [place] 1.010 (1.000-1.030) 03/07/25 16:23 Urine Protein Negative (Negative) 03/07/25 16:23 Urine Glucose (UA) Negative (Negative) 03/07/25 16:23 Urine Ketones Negative (Negative) 03/07/25 16:23 Urine Nitrite Negative (Negative) 03/07/25 16:23 Ur Leukocyte Esterase Negative (Negative) 03/07/25 16:23 Electrocardiogram Date: 03/07/25 Findings: + NSR @ LBBB Echocardiogram Date: 04/01/23 EF: 55-60 LV Function: normal
--- NOTE | 2025-03-08 17:00 | Communication Note ---
Date of Service: March 08, 2025 EGD No esophagitis. Incidental gastric polyps. These would not be the cause for pain or discomfort. Likely reflect fundic gland polyposis a benign condition increased in patients on PPI. No peptic ulcer disease noted neoplasia normal duodenum. Source for abdominal pain not identified. Review of labs CT scan do not show another obvious cause. No signs for chronic or acute pancreatitis. Consider chronic functional abdominal pain, narcotic dependent abdominal pain. Lucia diet. Could try a antispasmodic based on his description of radha zurita. Bentyl 10 mg twice 4 times daily daily.
--- NOTE | 2025-03-08 17:05 | GI REPORT ---
[facility] Patient: FESTUS LONG : 1960 Sex at : Male Age: 64 Years Procedure: Upper GI endoscopy Date: 03/08/2025 Attending Physician: Mark Anthony Hill MD Referring MD: Referred Self Indications: - Epigastric abdominal pain - Weight loss Medications: - Monitored Anesthesia Care Complications: - No immediate complications. Estimated Blood Loss: - Estimated blood loss was minimal. Procedure: - The egd scope was introduced through the mouth and advanced to the second part of the duodenum. - The upper GI endoscopy was accomplished without difficulty. - The patient tolerated the procedure well. Findings: - The examined esophagus was normal. - Multiple medium polyps were found in the gastric body. - The examined duodenum was normal. Impression: - Normal esophagus. - Multiple gastric polyps. - Normal examined duodenum. - No specimens collected. Recommendation: - Await pathology results. - Continue PPI, trial of Bentyl 10 mg p.o. 4 times daily for sharp pain Procedure Code(s): - 74326, Esophagogastroduodenoscopy, flexible, transoral; diagnostic, including collection of specimen(s) by brushing or washing, when performed (separate procedure) Diagnosis Code(s): - R10.13, Epigastric pain - K31.7, Polyp of stomach and duodenum CPT(R) - 2023 copyright [employer] [place] [employer]. All Rights Reserved. The CPT codes, CCI edits and ICD codes generated are intended as suggestions and were generated based on input data. These codes are preliminary and upon radiation physicist review may be revised to meet current compliance and payer requirements. The provider is responsible for the final determination of appropriate codes, and modifiers. Mark Anthony Hill MD This document has been electronically signed. Note Initiated:03/08/2025 Note Completed:03/08/2025 5:05 PM [id number]
--- NOTE | 2025-03-08 17:14 | Anesthesiology Progress Note ---
Date of Service March 08, 2025 Anesthesia Post Procedure Vital Signs Vital Signs: Temp Pulse Pulse Pulse Resp BP BP 03/08/25 17:04 85 16 129/82 03/08/25 16:49 97 H 16 88/43 L 03/08/25 15:51 36.9 C 62 16 171/80 H 03/08/25 15:01 37.1 C 63 16 133/79 03/08/25 12:55 59 L 03/08/25 11:11 36.8 C 55 L 18 151/77 H 03/08/25 08:06 36.8 C 59 L 14 147/77 H 03/08/25 05:58 67 03/08/25 03:57 36.4 C L 55 L 16 130/70 03/08/25 01:30 36.4 C L 63 18 165/69 H 03/08/25 01:20 62 03/08/25 01:00 58 L 17 130/89 03/08/25 00:30 58 L 16 137/89 03/08/25 00:00 61 17 137/89 03/08/25 00:00 62 17 137/89 03/07/25 23:00 72 17 135/99 03/07/25 23:00 100 H 19 112/75 03/07/25 22:30 66 18 151/80 H 03/07/25 22:24 66 18 155/81 H 03/07/25 22:00 63 20 155/81 H 03/07/25 21:31 63 15 150/98 H 03/07/25 21:00 62 15 154/81 H 03/07/25 20:50 66 03/07/25 20:34 62 14 166/91 H 03/07/25 20:30 70 19 166/91 H 03/07/25 20:00 69 19 134/79 03/07/25 19:30 72 17 157/83 H 03/07/25 19:28 63 16 147/89 H 03/07/25 19:26 67 15 147/89 H 03/07/25 18:00 64 15 03/07/25 17:42 67 21 03/07/25 17:21 69 18 Pulse Ox O2 Del Method O2 Flow Rate 03/08/25 17:04 96 Room Air 03/08/25 16:49 96 Nasal Cannula 4 03/08/25 15:51 96 Room Air 03/08/25 15:01 94 Room Air 03/08/25 12:55 03/08/25 11:11 94 Room Air 03/08/25 08:06 94 Room Air 03/08/25 05:58 03/08/25 03:57 96 Room Air 03/08/25 01:30 96 Room Air 03/08/25 01:20 03/08/25 01:00 95 Room Air 03/08/25 00:30 95 Room Air 03/08/25 00:00 95 Room Air 03/08/25 00:00 95 Room Air 03/07/25 23:00 97 Room Air 03/07/25 23:00 98 Nasal Cannula 3 03/07/25 22:30 96 Room Air 03/07/25 22:24 95 Room Air 03/07/25 22:00 96 Room Air 03/07/25 21:31 97 Nasal Cannula 3 03/07/25 21:00 96 Room Air 03/07/25 20:50 03/07/25 20:34 96 Room Air 03/07/25 20:30 95 Room Air 03/07/25 20:00 96 Room Air 03/07/25 19:30 96 Room Air 03/07/25 19:28 96 Room Air 03/07/25 19:26 97 Room Air 03/07/25 18:00 95 Room Air 03/07/25 17:42 96 Room Air 03/07/25 17:21 98 Room Air Pain Intensity Medial Abdomen: Pain Intensity: 8 Transfer of Care Handoff Completed per policy Notes Mental Status: alert / awake / arousable Patient Amnestic to Procedure: Yes Nausea / Vomiting: adequately controlled Pain: adequately controlled Airway Patency, RR, SpO2: stable & adequate BP & HR: stable & adequate Hydration State: stable & adequate Anesthetic Complications: no major complications apparent and Pt Satisfied with anesthetic care
[2025-03-08] MEDS: PROPOFOL IV EMULSION 10 MG/ML 20 ML VIAL IV ONE (17:34)
[2025-03-08] MEDS: LIDOCAINE 2% 2 ML VIAL/AMP(20MG/ML) INFIL ONE (17:34)
[2025-03-08] MEDS: REMOVE LIDODERM PATCH ONE (17:44)
--- NOTE | 2025-03-08 19:29 | Hospitalist Progress Note ---
Date of Service March 08, 2025 Assessment & Plan (1) Intractable epigastric abdominal pain: Plan: Await EGD (03/08/2025) as recommended by GI BITA Sheehan, to evaluate patient's complaints of constant, bilateral, supra-umbilical pain. In the interim, patient continues to receive protonix 40mg IV bid and famotidine 20mg IV q12. (2) History of back surgery: (3) BPH (benign prostatic hyperplasia): Plan The patient is a 64-year-old male with a past medical history including male hypogonadism, alcohol dependence and in full remission, adrenal insufficiency, thoracolumbar kyphoscoliosis, history of urinary tract infection, GERD, BPH, hypertension, CKD stage II, LBBB, restrictive airway disease, and idiopathic cardiomyopathy. The patient presents to the emergency department, accompanied by his , with complaint of persistently worsening epigastric area pain. Initially developed epigastric area pain a few months ago, and has had imaging studies done, most recently on 03/02/2025, where he was diagnosed with colitis, placed on antibiotics which he completed, and has had continually worsening epigastric area pain. He underwent lumbar spine surgery at [facility] in [place] in August, and reports that he has no issues with back pain. His epigastric pain began a month or so after having had the back surgery, but reports that he did have some abdominal bloating while in the hospital there. His reports that the abdominal bloating has persisted since that time. He has had nausea without vomiting. He reports bowel movements are normal and he reports urine function is normal. He has had little oral intake over the past few days due to progressively worsening epigastric area pain. CT scan of abdomen pelvis in the emergency department today shows resolution of the previous colitis, chest x-ray is negative, and ultrasound of the abdomen was of relatively poor quality with question the possibility of a small amount of gallbladder sludge. From the emergency department the patient received the following: Morphine 4 mg IV, then Zofran 4 mg IV, then famotidine 4 mg IV, then morphine 4 mg IV x 3. He continues to have significant epigastric area pain and bloating. Upon questioning, he does report history of gastric ulcers when he was younger. Intractable epigastric abdominal pain/GERD- Patient reports history of ulcers at a younger age. CT scan of the abdomen pelvis today reports resolution of colitis that was seen 03/02. Ultrasound of the abdomen suggest possible slight gallbladder sludge. NPO Start pantoprazole 40 mg IV twice daily with first dose now Famotidine 20 mg IV every 12 hours, with first dose now LR at 100 mL/h Zofran 4 mg IV every 6 hours as needed Acetaminophen 1 g IV every 8 hours as needed for mild pain or fever Dilaudid 0.5 mg IV every 3 hours as needed for moderate pain Dilaudid 1 mg IV every 3 hours as needed for severe pain Narcan availability per protocol Of note, patient been on large doses of morphine: Morphine extended release 30 mg p.o. every 8 hours as needed, oxycodone 20 mg p.o. every 4 hours as needed. He has had little relief from IV morphine given in ED. Examination is more consistent with esophagitis, esophageal ulcer, gastritis, gastric ulcer, duodenitis, duodenal ulcer. Consult gastroenterology for possible EGD History of back surgery- Patient reports that his back has been doing well since surgery and is due for follow-up at [facility] on 03/10. Suspect the physiologic stress of surgery and recover may have contributed to the beginnings of his epigastric pain. BPH with LUTS- Follow urine output while off medication tamsulosin and finasteride RA- Has been on prednisone 3 mg daily Placed on hydrocortisone 50 mg IV every 8 hours until taking p.o. again. Central hypogonadism- On testosterone cypionate every 7 days in the outpatient setting Admission and Anticipated Discharge Date Admission Date: March 07, 2025 Subjective "My belly hurts constantly; it's a 9 (out of 10 point intensity scale). No nausea or vomit or diarrhea. I last moved my bowels on Thursday (03/07/2025) before I came to the ER @ [facility]." Review of Systems Constitutional: Positive for supra-umbilical pain (bilateral). Negative for antecedent/coincident fevers, chills, diaphoresis, cough, wheeze, sore throat, hemoptysis, chest pains, palpitations, pleurisy, nausea, vomiting, diarrhea, pelvic pain, hematemesis, hematochezia, melena, hematuria, dysuria, frequency, urgency, headaches, dizziness, lightheadedness, visual changes, hearing changes, weakness, falls, syncope, trauma, travel history, sick contacts, or food/drug ingestions novel or new. All other review of systems are reported as negative by the patient on 03/08/2025. Physical Exam Constitutional: General: Comfortable, cooperative, coherent. Wide awake and alert. Not confused, lethargic, or obtunded. Patient speaks in complete, fluent, and articulate sentences without pause, interruption, cough, or wheeze. HEENT: NC/AT. EOMI. PERRL. No nystagmus, gaze paresis, anisocoria, miosis, mydriasis, chemosis, hyphema, scleral injection, conjunctivitis, or pterygium. No otorrhea. No rhinorrhea. Neck: Supple, no stridor, bruit, or goiter. Jugular venous pressure 5cm above the sternal angle of Ayush, which is typically 5 cm above the right atrium. Lymph: No anterior/posterior cervical lymphadenopathy, supraclavicular/infraclavicular lymphadenopathy, axilla/epitrochlear/inguinal lymphadenopathy. Chest: Symmetric rise and fall with respirations. Non-tender to palpation. Heart: RRR, S1 and S2. No S3 or S4 summation gallop. No tripartite friction rub. Grade II/ early systolic murmur @ LLSB without radiation to the carotids, axilla, or back, and which remains invariant in regards to the respiratory cycle. Lungs: Clear to auscultation and percussion. No audible expiratory wheeze, eg ophony, pectoriloquy, increase in tactile fremitus, or flatness/dullness to percussion at the bases. Abd: Soft, distended, bilateral supra-umbilical tenderness. Bowel sounds auscultated in all 4 quadrants. No rebound, guarding, Velazquez's sign, or organomegaly. Ext: No clubbing, cyanosis, or edema. 2+ pedal pulses bilaterally. Skin: No decubitus ulcer, exanthem, or enanthem. Neuro: No tremors, tics, or myoclonus. DTR+. 3/5 motor strength in all 4 extremities. Urology: No key catheter. No urethral discharge. Results & Data Results & Data Vital Signs (Past 12 Hours) Vital Signs Temp Pulse Pulse Pulse Pulse Resp BP 03/08/25 18:44 36.3 C L 93 H 16 03/08/25 17:58 36.6 C 74 03/08/25 17:31 36.7 C 78 03/08/25 17:19 80 16 137/79 03/08/25 17:04 85 16 129/82 03/08/25 16:49 97 H 16 88/43 L 03/08/25 15:51 36.9 C 62 16 171/80 H 03/08/25 15:01 37.1 C 63 16 133/79 03/08/25 12:55 59 L 03/08/25 11:11 36.8 C 55 L 18 151/77 H 03/08/25 08:06 36.8 C 59 L 14 147/77 H BP Pulse Ox O2 Del Method O2 Flow Rate 03/08/25 18:44 147/78 H 95 Room Air 03/08/25 17:58 148/82 H 94 Room Air 03/08/25 17:31 136/87 95 Room Air 03/08/25 17:19 95 Room Air 03/08/25 17:04 96 Room Air 03/08/25 16:49 96 Nasal Cannula 4 03/08/25 15:51 96 Room Air 03/08/25 15:01 94 Room Air 03/08/25 12:55 03/08/25 11:11 94 Room Air 03/08/25 08:06 94 Room Air Laboratory Results Abnormal lab results 03/08/25 03/08/25 Range/Units 06:10 11:03 RBC 4.33 L (4.70-6.10) M/uL Hgb 12.8 L (14.0-18.0) g/dl Hct 39.1 L (42.0-52.0) % Jack # (Auto) 0.64 H (0.11-0.59) K/uL D-Dimer 710 H* (0-500) ug/L FEU Total Protein 5.8 L D (6.0-8.3) gm/dl Albumin 3.1 L (3.4-5.0) gm/dl Diagnostic Findings EGD (03/08/2025): (as per GI BITA Sheehan). PG Care Time/CCT Total # of Minutes Spent Total Time Spent with Patient: Total time spent is greater than 50% in coordination of care (as documented) at patient's floor/unit and/or counseling patient: Coding Level of Care Code 11518 SUB INP/OBS CARE 2/35MIN Diagnoses Intractable epigastric abdominal pain R10.13 History of back surgery Z98.890 BPH (benign prostatic hyperplasia) N40.0
[2025-03-08] MEDS: DICYCLOMINE HCL 10 MG CAP PO SCH (20:26)
[2025-03-09 07:00] LABS: Hematocrit (blood only) 37.3 % (42.0-52.0); Hemoglobin 13.2 g/dl (14.0-18.0); Immature Granulocytes # (auto) 0.03 K/uL (0.01-0.20); Immature Granulocytes % (auto) 0.5 %; Mean Corpuscular Hemoglobin 31.0 pg (25.0-34.0); Mean Corpuscular Volume 87.6 fL (80.0-100.0); Platelet Count 261 K/uL (130-400); RDW Standard Deviation 40.9 fL (36.4-46.3); Red Blood Count 4.26 M/uL (4.70-6.10); White Blood Count 6.66 K/ul (4.8-10.8)
[2025-03-09 07:35] LABS: Alanine Aminotransferase 9.0 U/L (7-52); Albumin Globulin Ratio 1.2 (0.9-2); Albumin Level 2.9 gm/dl (3.4-5.0); Alkaline Phosphatase 69.0 U/L (34-104); Anion Gap 8.0 (3-11); Bilirubin,Total 0.6 mg/dl (0.2-1.0); Blood Urea Nitrogen 10.0 mg/dl (6-23); Calcium 8.1 mg/dl (8.6-10.3); Carbon Dioxide 23.0 mmol/L (21-32); Chloride 106.0 mmol/L (98-107); Creatinine Clr Calc Pharmacy 99.9 ml/min; Globulin 2.5 gm/dl (2.5-4.0); Glucose 115.0 mg/dl (70-99(Fasting)); Magnesium 1.9 mg/dl (1.7-2.4); Potassium 3.6 mmol/L (3.5-5.1); Sodium 137.0 mmol/L (136-145); Total Protein 5.4 gm/dl (6.0-8.3)
[2025-03-09 08:05] VITALS: RESP 18
--- NOTE | 2025-03-09 10:00 | Gastroenterology Progress Note ---
Date of Service March 09, 2025 Assessment & Plan (1) Intractable epigastric abdominal pain: Plan: 64 year old male with history of hypogonadism, alcohol dependence and in full remission, adrenal insufficiency, thoracolumbar kyphoscoliosis, history of urinary tract infection, GERD, BPH, hypertension, CKD stage II, LBBB, restrictive airway disease, and idiopathic cardiomyopathy, lumbar spine surgery at [facility] in [place] in August admitted w/ abd pain. CT w/o acute findings, KUB w/o acute findings, LFTs and lipase non-elevated, last EGD/Colonoscopy reviewed. EGD this admission w/o acute findings. His narcotic regimen may be contributing to his pain. Recommended smaller, more frequent meals. Trial of scheduled Bentyl 10 mg up to four times daily. PPI 40 mg once daily. Anti-emetics as needed. Establish a bowel regimen, Miralax 1 capful 1-2 times daily as needed. May use Senna if no BM in 48 hours. Recall GI as needed. I spent a total of 40 minutes on the date of service in review of patient's record, and previously obtained information in person and appropriate medical visit, discussion and education of plan, with patient and/or caregiver, placing orders for tests/referral/procedures as medically necessary and documentation of pertinent clinical information in patient's medical records for their visit today. Admission and Anticipated Discharge Date Admission Date: March 07, 2025 Supervising Physician Co-Signing Physician Notes Agree with above. Patient discharged prior to being seen. Subjective Pt was seen and evaluated, chart reviewed. S/P EGD, no acute findings. Endorses post-prandial abd pain/bloating. EGD 2024: - Normal esophagus. - Multiple gastric polyps. - Normal examined duodenum. - No specimens collected. Review of Systems Review of Systems: All other findings negative except as noted in HPI. Physical Exam Constitutional: WD/WN, vitals as above Respiratory: normal respiratory effort, lungs clear to auscultation Cardiovascular: RRR, no murmur, no edema Gastrointestinal (Abdomen): normal bowel sounds, soft, nontender, no hepatosplenomegaly Skin: no rashes, warm and dry Results & Data Results & Data Vital Signs (Past 12 Hours) Vital Signs Temp Pulse Pulse Resp BP BP Pulse Ox 03/09/25 08:04 98.2 F 95 H 18 134/76 96 03/09/25 06:05 83 03/09/25 03:48 98.2 F 63 17 145/82 H 95 03/08/25 22:25 98.1 F 70 16 139/72 98 03/08/25 22:11 52 L O2 Del Method 03/09/25 08:04 Room Air 03/09/25 06:05 03/09/25 03:48 Room Air 03/08/25 22:25 Room Air 03/08/25 22:11 Laboratory Results 03/09/25 03/08/25 03/08/25 Range/Units 06:26 11:07 11:03 WBC 6.66 (4.8-10.8) K/ul RBC 4.26 L (4.70-6.10) M/uL Hgb 13.2 L (14.0-18.0) g/dl Hct 37.3 L (42.0-52.0) % MCV 87.6 (80.0-100.0) fL MCH 31.0 (25.0-34.0) pg MCHC 35.4 (32.0-36.0) g/dL RDW Std Deviation 40.9 (36.4-46.3) fL RDW Coeff of Jaja 12.9 (11.5-14.5) % Plt Count 261 (130-400) K/uL MPV 9.6 (9.4-12.4) fL Immature Gran % (Auto) 0.5 % Neut % (Auto) 82.4 % Lymph % (Auto) 11.1 % [place] % (Auto) 5.6 % Eos % (Auto) 0.2 % Baso % (Auto) 0.2 % Neut # (Auto) 5.50 (1.40-6.50) K/uL Lymph # (Auto) 0.74 L (1.20-3.40) K/uL [place] # (Auto) 0.37 (0.11-0.59) K/uL Eos # (Auto) 0.01 (0.00-0.50) K/uL Baso # (Auto) 0.01 (0.00-0.20) K/uL Immature Gran # (Auto) 0.03 (0.01-0.20) K/uL D-Dimer 710 H* (0-500) ug/L FEU Sodium 137 (136-145) mmol/L Potassium 3.6 (3.5-5.1) mmol/L Chloride 106 (98-107) mmol/L Carbon Dioxide 23 (21-32) mmol/L Anion Gap 8 (3-11) BUN 10 (6-23) mg/dl Creatinine 0.68 (0.6-1.4) mg/dl Est Cr Clr Drug Dosing 99.9 ml/min eGFR 102.52 BUN/Creatinine Ratio 14.7 (10-20) Glucose 115 H (70-99(Fasting)) mg/dl Lactate 0.7 (0.4-2.0) mmol/L Calcium 8.1 L (8.6-10.3) mg/dl Magnesium 1.9 (1.7-2.4) mg/dl Total Bilirubin 0.6 (0.2-1.0) mg/dl AST 15 (13-39) U/L ALT 9 (7-52) U/L Alkaline Phosphatase 69 (34-104) U/L Troponin I High Sens 7.8 (0-20) pg/ml Total Protein 5.4 L (6.0-8.3) gm/dl Albumin 2.9 L (3.4-5.0) gm/dl Globulin 2.5 (2.5-4.0) gm/dl Albumin/Globulin Ratio 1.2 (0.9-2) PG Care Time/CCT Total # of Minutes Spent Total Time Spent with Patient: Total time spent is greater than 50% in coordination of care (as documented) at patient's floor/unit and/or counseling patient: Coding Level of Care Code 80228 SUB INP/OBS CARE 2/35MIN Diagnoses Intractable epigastric abdominal pain R10.13
[2025-03-09 11:15] VITALS: BP 128/72; TEMP 98.4; O2SAT 98
[2025-03-09] MEDS: SIMETHICONE 80 MG CHEW PO PRN (12:06)
[2025-03-09 13:15] VITALS: PULSE 59
--- NOTE | 2025-03-09 14:29 | Discharge Summary ---
Discharge Summary Date of Service March 09, 2025 Principal Dx & Hospital Course #1 = Principal Diagnosis (1) Intractable epigastric abdominal pain: Etiology of intractable epigastric abdominal pain remains unclear after patient underwent EGD (03/08/2025, 5:05pm, GI Dr. Mark Anthony Hill): 1. Normal esophagus. 2. Multiple gastric polyps. 3. Normal duodenum. cf., pathology report (03/08/2025, 5:57pm) for gastric polyp: fundic gland polyp (as per [facility] Pathologist Dr. Lamin Singh). In the interim, patient continued to receive protonix 40mg IV bid and famotidine 20mg IV q12. Patient reported persistence of epigastric abdominal pain on 03/08/2025. Patient subsequently underwent lactic acid level testing (cf., lactic acid #1 0.7 mmol/L, 03/07/2025, 10:52pm; lactic acid #2 0.7 mmol/L, 03/08/2025, 11:07am), thereby making acute/chronic mesenteric ischemia unlikely. Patient subsequently underwent D-dimer level testing (cf., D-dimer 710 ug/L, 03/08/2025, 11:03am); patient subsequently underwent CTA chest (03/08/2025, 12:33pm), which was negative for acute PE. Patient was subsequently discharged back to his home on 03/09/2025 on his home- scheduled omeprazole 20mg PO bid as well as a new prescription for simethicone 160mg PO q6 prn flatulence/eructation, 80mg tablet, 240 tablets, no refills, that was transmitted electronically to his [facility] [id number], [address] [place] [address], no refills, prior to hospital discharge back to his home on 03/09/2025. Patient was also advised to follow up with his PCP Dr. Giuseppe Romero within 5-7 days to: 1. Arrange for outpatient colonoscopy with [facility] within 30 days of hospital discharge, to follow up 02/16/2020 colonoscopy which revealed non-bleeding internal hemorrhoids and a few small-mouthed diverticula in ascending colon (as per GI Dr. Zion Wilkerson). cf., EGD (02/16/2020, GI Dr. Zion Wilkerson) with 10 mm pedunculated, hyperplastic, gastric body polyp; normal esophagus; normal duodenum. (2) History of back surgery: (3) BPH (benign prostatic hyperplasia): Plan The patient is a 64-year-old male with a past medical history including male hypogonadism, alcohol dependence and in full remission, adrenal insufficiency, thoracolumbar kyphoscoliosis, history of urinary tract infection, GERD, BPH, hypertension, CKD stage II, LBBB, restrictive airway disease, and idiopathic cardiomyopathy. The patient presents to the emergency department, accompanied by his , with complaint of persistently worsening epigastric area pain. Initially developed epigastric area pain a few months ago, and has had imaging studies done, most recently on 03/02/2025, where he was diagnosed with colitis, placed on antibiotics which he completed, and has had continually worsening epigastric area pain. He underwent lumbar spine surgery at [facility] in [place] in August, and reports that he has no issues with back pain. His epigastric pain began a month or so after having had the back surgery, but reports that he did have some abdominal bloating while in the hospital there. His reports that the abdominal bloating has persisted since that time. He has had nausea without vomiting. He reports bowel movements are normal and he reports urine function is normal. He has had little oral intake over the past few days due to progressively worsening epigastric area pain. CT scan of abdomen pelvis in the emergency department today shows resolution of the previous colitis, chest x-ray is negative, and ultrasound of the abdomen was of relatively poor quality with question the possibility of a small amount of gallbladder sludge. From the emergency department the patient received the following: Morphine 4 mg IV, then Zofran 4 mg IV, then famotidine 4 mg IV, then morphine 4 mg IV x 3. He continues to have significant epigastric area pain and bloating. Upon questioning, he does report history of gastric ulcers when he was younger. Intractable epigastric abdominal pain/GERD- Patient reports history of ulcers at a younger age. CT scan of the abdomen pelvis today reports resolution of colitis that was seen 03/02. Ultrasound of the abdomen suggest possible slight gallbladder sludge. NPO Start pantoprazole 40 mg IV twice daily with first dose now Famotidine 20 mg IV every 12 hours, with first dose now LR at 100 mL/h Zofran 4 mg IV every 6 hours as needed Acetaminophen 1 g IV every 8 hours as needed for mild pain or fever Dilaudid 0.5 mg IV every 3 hours as needed for moderate pain Dilaudid 1 mg IV every 3 hours as needed for severe pain Narcan availability per protocol Of note, patient been on large doses of morphine: Morphine extended release 30 mg p.o. every 8 hours as needed, oxycodone 20 mg p.o. every 4 hours as needed. He has had little relief from IV morphine given in ED. Examination is more consistent with esophagitis, esophageal ulcer, gastritis, gastric ulcer, duodenitis, duodenal ulcer. Consult gastroenterology for possible EGD History of back surgery- Patient reports that his back has been doing well since surgery and is due for follow-up at [facility] on 03/10. Suspect the physiologic stress of surgery and recover may have contributed to the beginnings of his epigastric pain. BPH with LUTS- Follow urine output while off medication tamsulosin and finasteride RA- Has been on prednisone 3 mg daily Placed on hydrocortisone 50 mg IV every 8 hours until taking p.o. again. Central hypogonadism- On testosterone cypionate every 7 days in the outpatient setting Admission HPI Per Admitting Provider 64 years old male with PMH of FULL CODE @ home, overweight with BMI 25.9 (height 170.18 cm; weight 75.0 kg), male hypogonadism on testosterone 50mg SQ q7 days, adrenal insufficiency, thoracolumbar kyphoscoliosis, BPH on flomax 0.4mg PO bid, LBBB, ischemic cardiomyopathy, CKD stage II, HTN on metoprolol 25mg PO qam and spironolactone 25mg PO qam, restrictive airway disease, urinary tract infection, former alcohol dependence and in full remission, GERD on omeprazole 20mg PO bid, hyperplastic 10mm single gastric body polyp (removed during 02/16/2020 EGD, [facility] GI Dr. Zion Wilkerson), and non-bleeding internal hemorrhoids with a few small-mouthed diverticula in the ascending colon (as noted during 02/16/2020 colonoscopy, [facility] GI Dr. Zion Wilkerson), who presented to [facility] ER on 03/07/2025, accompanied by h is , with complaint of persistently worsening epigastric area pain. Initially developed epigastric area pain a few months ago, and has had imaging studies done, most recently on 03/02/2025, where he was diagnosed with colitis, placed on antibiotics which he completed, and has had continually worsening epigastric area pain. He underwent lumbar spine surgery at [facility] in [place] in August, and reports that he has no issues with back pain. His epigastric pain began a month or so after having had the back surgery, but reports that he did have some abdominal bloating while in the hospital there. His reports that the abdominal bloating has persisted since that time. He has had nausea without vomiting. He reports bowel movements are normal and he reports urine function is normal. He has had little oral intake over the past few days due to progressively worsening epigastric area pain. CT scan of abdomen pelvis in the emergency department today shows resolution of the previous colitis, chest x-ray is negative, and ultrasound of the abdomen was of relatively poor quality with question the possibility of a small amount of gallbladder sludge. From the emergency department the patient received the following: Morphine 4 mg IV, then Zofran 4 mg IV, then famotidine 4 mg IV, then morphine 4 mg IV x 3. He continues to have significant epigastric area pain and bloating. Upon questioning, he does report history of gastric ulcers when he was younger. Discharge Exam Constitutional General: Comfortable, cooperative, coherent. Wide awake and alert. Not confused, lethargic, or obtunded. Patient speaks in complete, fluent, and articulate sentences without pause, interruption, cough, or wheeze. HEENT: NC/AT. EOMI. PERRL. No nystagmus, gaze paresis, anisocoria, miosis, mydriasis, chemosis, hyphema, scleral injection, conjunctivitis, or pterygium. No otorrhea. No rhinorrhea. Neck: Supple, no stridor, bruit, or goiter. Jugular venous pressure 5cm above the sternal angle of Ayush, which is typically 5 cm above the right atrium. Lymph: No anterior/posterior cervical lymphadenopathy, supraclavicular/infraclavicular lymphadenopathy, axilla/epitrochlear/inguinal lymphadenopathy. Chest: Symmetric rise and fall with respirations. Non-tender to palpation. Heart: RRR, S1 and S2. No S3 or S4 summation gallop. No tripartite friction rub. Grade II/ early systolic murmur @ LLSB without radiation to the carotids, axilla, or back, and which remains invariant in regards to the respiratory cycle. Lungs: Clear to auscultation and percussion. No audible expiratory wheeze, egophony, pectoriloquy, increase in tactile fremitus, or flatness/dullness to percussion at the bases. Abd: Soft, non-distended, non-tender. Bowel sounds auscultated in all 4 quadrants. No rebound, guarding, Velazquez's sign, or organomegaly. Ext: No clubbing, cyanosis, or edema. 2+ pedal pulses bilaterally. Skin: No decubitus ulcer, exanthem, or enanthem. Neuro: No tremors, tics, or myoclonus. DTR+. 3/5 motor strength in all 4 extremities. Urology: No key catheter. No urethral discharge. Discharge Plan Discharge Items Patient Disposition: Home - Self-Care Reason For Visit: SEVERE EPIGASTRIC PAIN Discharge Diagnosis: 1. Gastric body polyps (as noted on 03/08/2025 EGD, GI Dr. Mark Anthony Hill). 2. Chronic flatulence. Condition on Discharge: Fair Activity: Resume your previous activity Bathing: No limitations Sexual Activity: When tolerated Exercise/Sports: Gradually increase as tolerated Driving/Machine Use: No limitations Weightbearing: Full weightbearing Non-emergency contact: Primary Care Provider Call non-emergency contact if: you have any medication questions Follow-up/Referrals: Giuseppe Romero MD [Primary Care Provider] - 03/16/25 2:15 pm (Primary Care hospital follow up scheduled on 03/16/25 at 2:15 with Giuseppe Romero) Diet: Heart Healthy Addtl Attending Provider Instructions: See your PCP Dr. Giuseppe Romero within 5-7 days to: 1. Arrange for outpatient colonoscopy with [facility] within 30 days of hospital discharge, to follow up 02/16/2020 colonoscopy which revealed non-bleeding internal hemorrhoids and a few small-mouthed diverticula in ascending colon (as per GI Dr. Zion Wilkerson). cf., EGD (02/16/2020, GI Dr. Zion Wilkerson) with 10 mm pedunculated, hyperplastic, gastric body polyp; normal esophagus; normal duodenum. Pending Studies at Discharge: Yes Studies:: See your PCP Dr. Giuseppe Romero within 5-7 days to arrange for outpatient colonoscopy with [facility] within 30 days of hospital discharge, to follow up 02/16/2020 colonoscopy which revealed non- bleeding internal hemorrhoids and a few small-mouthed diverticula in ascending colon (as per GI Dr. Zion Wilkerson). cf., EGD (02/16/2020, GI Dr. Zion Wilkerson) with 10 mm pedunculated, hyperplastic, gastric body polyp; normal esophagus; normal duodenum. Stand-Alone Forms: My [facility] [place], Smoking Cessation Medications and DC Order Prescriptions: New simethicone [Gas Relief (simethicone)] 80 mg Tablet,Chewable 160 mg PO Q6H PRN (Reason: flatulence, eructation) Qty: 240 0RF Continued diclofenac sodium [Arthritis Pain (diclofenac)] 1 % gel 2 g topical QID PRN (Reason: Pain) Qty: 100 6RF tamsulosin [Flomax] 0.4 mg capsule 0.4 mg PO BID Qty: 180 3RF cholecalciferol (vitamin D3) [Vitamin D3] 125 mcg (5,000 unit) tablet 125 mcg PO 2XWK Qty: 30 3RF Rx Instructions: TAKES TUES & FRI. metoprolol succinate 25 mg tablet extended release 24 hr 25 mg PO QAM Qty: 90 3RF spironolactone [Aldactone] 25 mg tablet 25 mg PO QAM Qty: 180 3RF Hold Instructions: HOLD unless cardiology or Dr Romero recommend restarting finasteride 5 mg tablet 5 mg PO QPM Qty: 90 3RF testosterone cypionate 100 mg/mL oil 50 mg subcut Q7D Qty: 10 3RF (DME) syringe with needle 3 mL 25 gauge x 1" syringe See Rx Instructions .Route Qty: 12 1RF Rx Instructions: Use once a week with Testosterone Injection (DME) needle (disp) 18 G [BD Regular [place]] 18 gauge x 1" needle See Rx Instructions miscellaneous .MEDSUPPLY Qty: 100 3RF Rx Instructions: use once weekly with testosterone omeprazole 20 mg capsule,delayed release(DR/EC) 20 mg PO BID Qty: 180 3RF morphine [MS Contin] 30 mg tablet extended release 30 mg PO Q8H PRN (Reason: Pain) Qty: 90 0RF oxycodone 20 mg tablet 20 mg PO Q4H PRN (Reason: pain) Qty: 180 0RF amoxicillin-pot clavulanate 875-125 mg tablet 1 tab PO BID 7 Days Qty: 14 0RF Rx Instructions: STARTED 03/02/25 FOR 7 DAYS prednisone 1 mg tablet 3 mg PO DAILY Qty: 90 1RF memantine 10 mg tablet 10 mg PO BID Qty: 180 3RF nitroglycerin 0.4 mg tablet, sublingual 0.4 mg sublingual Q5M PRN (Reason: chest pain) Qty: 25 3RF Rx Instructions: no record do not exceed 3 doses per episode tadalafil 5 mg tablet 5 mg PO DAILY Qty: 90 3RF valsartan 80 mg tablet 80 mg PO DAILY Qty: 90 3RF cetirizine 10 mg tablet 10 mg PO HS Qty: 30 11RF multivitamin Tablet 1 tab PO QAM amoxicillin 500 mg capsule 2,000 mg PO DIRECTED PRN (Reason: 1 HR PRIOR TO DENTAL PROCEDURES) Rx Instructions: take 4 caps 1 hour prior to dental appointment Discharge Orders: Discharge Order (Routine); Ordered 03/09/25 Ordered By: Barry Larkin Admission Data Admit Date/Time: 03/07/25 23:27 Attending Provider: Barry Larkin Admit Provider: Isaías Fabian Primary Care Provider: Giuseppe Romero Other Providers: Isaías Fabian; Luis Chapa Jr Other Interventions: Discharge Summary Assessment (RN) Last Done: 03/09/25 13:15 Hospital Stay Data Consultations 03/07/25 22:53 ED Decision to Admit Stat 03/08/25 01:21 Consult Gastroenterology Routine Procedures Performed Operation Date: 03/08/25 17:40 Actual Procedures p EGD Biopsy Cytology - Mark Anthony Hill MD Diagnostic Imagining Performed 03/07/25 17:16 US abdomen limited Stat 03/07/25 20:36 CT abd pelvis IV con only Stat 03/08/25 12:33 CTA chest w con [CT angio chest w con] Urgent Pending Results Patient Have Any Pending Studies at Discharge: Yes Discharge Instructions Given to Patient (Per Discharging Provider) See your PCP Dr. Giuseppe Romero within 5-7 days to: 1. Arrange for outpatient colonoscopy with [facility] within 30 days of hospital discharge, to follow up 02/16/2020 colonoscopy which reveale d non-bleeding internal hemorrhoids and a few small-mouthed diverticula in ascending colon (as per GI Dr. Zion Wilkerson). cf., EGD (02/16/2020, GI Dr. Zion Wilkerson) with 10 mm pedunculated, hyperplastic, gastric body polyp; normal esophagus; normal duodenum. Total Time Total Time Spent Total Time Spent (In Minutes): 35 minutes. Of this time period, 19 minutes were spent in coordinating patient's discharge. Coding Level of Care Code 59382 INP/OBS DISCH >30 MIN Diagnoses Intractable epigastric abdominal pain R10.13 History of back surgery Z98.890 BPH (benign prostatic hyperplasia) N40.0
== END 2025-03-09 15:03 | disposition home or self-care (01) | DRG 392 ==
LOC: ED 16:04 → SUATTDRO 23:27 → 2S 23:27